=== PATIENT | male | born 1965 | race Two or more races ===

== ENCOUNTER 2017-03-16 08:06 | Emergency (ER) | payer MEDICARE, MEDICAID ==
[~2017-03-16] VITALS: Ht 177.8 cm; Wt 100.2 kg
[~2017-03-16 08:06] MED LIST: ACET160E13 GT; ALBU2.5V13 IH; ALLA266C2 TP; AMLO5TAB4 GT; BLOO-129 IN; CARV25TA2 GT; DILT30TA2 GT; DOCU50LI GT; DOXA4TAB2 GT; FOLI0.8T23 GT; FOLI1TAB16 GT; GABA-532 GT; HYDR-4076 GT; INSU100I19 SQ; INSU100V27 SQ; IPRA0.2S9 IH; LEVE100S GT; MERO1VIA IV; NITR1PAT9 TD; NUT.237L67 GT; OMEP40CA37 GT; PYRI50TA9 GT; TRAM50TA2 PO
--- NOTE | 2017-03-16 08:15 | NUR ---
AT FOR EVAL AND FOR GTUBE REPLACEMENT.
[2017-03-16] MEDS ORDERED: DIATR MEGLU/DIATRIZOATE SODIUM 30 ML BOTTLE (GASTROGRAPHIN) ONE (08:18)
--- NOTE | 2017-03-16 08:20 | NUR ---
PT BIB EMS FOR G-TUBE REPLACEMENT. G-TUBE DISLODGED THIS MORNING. VSS. NAD NOTED. RT AT BS. SAFETY AND COMFORT MEASURES PROVIDED. WILL MONITOR. AWAITING FOR MD CASTELLANO.
--- NOTE | 2017-03-16 08:32 | NUR ---
CALLED [facility] [phone] ETA FOR RT IS 20 MIN
--- NOTE | 2017-03-16 09:41 | NUR ---
Patient discharged back to facility in a stable condition. Written and verbal after care instructions given. rReport given to [facility] ambulance staff.
[2017-03-16 09:43] VITALS: BP 116/65
== END 2017-03-16 09:44 ==
LOC: ER 08:08
DX: K94.23 Gastrostomy malfunction (principal); E11.9 Type 2 diabetes mellitus without complications; I12.0 Hypertensive chronic kidney disease with stage 5 chronic kidney disease or end stage renal disease; N18.6 End stage renal disease; K74.60 Unspecified cirrhosis of liver; Z79.4 Long term (current) use of insulin; Z86.73 Personal history of transient ischemic attack (TIA), and cerebral infarction without residual deficits; Z99.2 Dependence on renal dialysis
CPT/HCPCS: 74000-TC; A4606; Q9963; Z7610

== ENCOUNTER 2017-04-29 12:10 | Inpatient (IN) | payer MEDICARE, MEDICAID ==
[~2017-04-29] VITALS: Ht 172.7 cm; Wt 93.9 kg
--- NOTE | 2017-04-29 12:19 | NUR ---
[facility] FROM CENTER, LEFT ARM DEFORMITY NOTICED UNKNOWN ETIOLOGY. PLACED ON MONITOR. PT ON MECH VENT TRACH . PT HAS GTUBE PATENT. PLACED ON MONITOR. AWAITING MD ORDER
--- NOTE | 2017-04-29 12:23 | NUR ---
DR WELLS AT BEDSIDE FOR EVAL
--- NOTE | 2017-04-29 12:41 | NUR ---
INTERLOCKING MACHINE OPERATOR AT BEDSIDE
--- NOTE | 2017-04-29 13:35 | NUR ---
PAGED DR WERNER MEDICAL DIAGNOSTIC RADIOGRAPHER FOR DR KANG
--- NOTE | 2017-04-29 13:44 | NUR ---
NURSING AIDE AT BEDSIDE
[2017-04-29] MEDS ORDERED: ENOXAPARIN SODIUM 60 MG/0.6 ML DISP.SYRIN SQ ONE (14:00)
--- NOTE | 2017-04-29 14:01 | NUR ---
REPAGED DR. SCHWARTZ
[2017-04-29 14:26] LABS: BASOPHILS % (AUTO) 0.8 % (0.0-2.0); EOSINOPHILS # (AUTO) 0.1 /CMM (0.0-0.7); HEMATOCRIT 37 % (39-51); HEMOGLOBIN 11.2 g/dL (13.5-17.5); LYMPHOCYTES # (AUTO) 0.4 /CMM (0.8-4.8); LYMPHOCYTES % (AUTO) 8.8 % (20.0-44.0); MEAN CORPUSCULAR HEMOGLOBIN 31 PG (26.0-33.0); MEAN CORPUSCULAR HGB CONC 30 g/dl (31.0-36.0); MEAN CORPUSCULAR VOLUME 103 fL (80-96); MONOCYTES # (AUTO) 0.3 /CMM (0.1-1.30); MONOCYTES % (AUTO) 5.7 % (2.0-12.0); NEUTROPHILS # (AUTO) 3.7 /CMM (1.8-8.9); NEUTROPHILS % (AUTO) 81.7 % (43.0-81.0); RDW COEFFICIENT OF VARIATION 18.3 (11.5-15.0); WHITE BLOOD COUNT (AUTO) 4.5 K/uL (4.3-11.0)
[2017-04-29 14:32] LABS: PLATELET COUNT (AUTO) 44 /CMM (150-450)
[2017-04-29 14:34] LABS: CALCIUM, SERUM 9.2 mg/dL (8.5-10.1); CREATININE 3.4 mg/dL (0.6-1.3); POTASSIUM 4.3 mmol/L (3.5-5.1)
--- NOTE | 2017-04-29 14:35 | NUR ---
per dr alma samuel [facility] dialysis pt.
[2017-04-29 14:36] LABS: PROTHROMBIN TIME 10.4 SECS (9.5-12.7)
--- NOTE | 2017-04-29 14:37 | NUR ---
328-[address] EFREN KING RN DVT
[2017-04-29] MEDS ORDERED: DEXT15DR23 EACHEYE (14:42)
[2017-04-29] MEDS ORDERED: SEVE800T8 GT (14:42)
[2017-04-29] MEDS ORDERED: AMIN887L GT (14:42)
--- NOTE | 2017-04-29 14:42 | NUR ---
GAVE REPORT TO CHRISTINE AYALADWARF TREE GROWER
[2017-04-29] MEDS ORDERED: INSU100V26 SQ (14:48)
--- NOTE | 2017-04-29 14:50 | NUR ---
REPAGED DR SCHWARTZ
--- NOTE | 2017-04-29 15:26 | NUR ---
REPAGED DR JENI SCHWARTZ
[2017-04-29 15:58] LABS: BAND % (MANUAL) 8 % (0.0-5.0); EOSINOPHILS % (MANUAL) 2 % (0-4); LYMPHOCYTES % (MANUAL) 10 % (16-48); MONOCYTES % (MANUAL) 4 % (0-11.0); NEUTROPHILS % (MANUAL) 76 (42-76)
[2017-04-29 16:30] VITALS: BP 129/68
--- NOTE | 2017-04-29 16:30 | NUR ---
RN NOTES RECEIVED PATIENT FROM MYAH AYALA IN THE ER. PATIENT WAS BROUGHT WITH BED. NO SOB OR DISTRESS NOTED. PATIENT IN TELE MONITOR, SR HEART RATE OF 91. PATIENT NON VERBAL, PATIENT ON VENTILATOR. IV INTACT AND PATENT. KEPT PATIENT CLEAN AND COMFORTABLE IN BED, CALL LIGHT WITHIN PATIENT REACH, WILL CONTINUE TO MONITOR ACCORDINGLY.
[2017-04-29 17:00] VITALS: BP 129/68
--- NOTE | 2017-04-29 17:30 | NUR ---
RN NOTES PAGED DR. SCHWARTZ.
--- NOTE | 2017-04-29 18:40 | NUR ---
RN NOTES ALL NEEDS PROVIDED, ATTENDED, AND ANTICIPATED. KEPT PATIENT CLEAN AND COMFORTABLE IN BED, CALL LIGHT WITHIN PATIENT REACH, WILL CONTINUE TO MONITOR ACCORDINGLY. ENDORSED TO NEXT SHIFT RN TO CONTINUE CARE.
--- NOTE | 2017-04-29 19:22 | NUR ---
RN NOTES PAGED DR. SCHWARTZ. THEY TOLD ME THAT DR. TREVIÑO IS DRJohana LEARNING MANAGER AND HE WILL GIVE ME A CALL.
[2017-04-29 20:00] VITALS: BP 140/79
[2017-04-29] MEDS ORDERED: ALBUTEROL FS 2.5 MG/0.5 ML VIAL.NEB IH PRN (20:00)
[2017-04-29] MEDS ORDERED: IPRATROPIUM NEB FS 0.5 MG/2.5 ML AMPUL.NEB IH PRN (20:00)
--- NOTE | 2017-04-29 20:00 | NUR ---
TELE SUPERVISOR FABRICATION AND ASSEMBLY INITIAL NOTES RECEIVED REPORT FROM AM NURSE NICKOLAS, CHECKED PT SEEN IN BED ON MECHANICAL VENT SETTING FF. AC16, FIO2 40%, TV 600 , PEEP 5 , TRACH PORTEX #8. HE ALSO WITH G TUBE, CLAMPED AT THIS TIME.NO RESIDUAL NOTED. LEFT ARM SWOLLEN NOTED OFFLOAD ON PILLOWS. SKIN WARM AND DRY TO TOUCH, NOT IN ANY ACUTE DISTRESS NOTED. ABDOMEN SEEMS DISTENDED AND NOTED REDNESS ON G-TUBE SITE. BOWEL SOUNDS PRESENT. TELE SR WITH 1ST DEGREE AV BLOCK , KEPT HIM ON SEMI FOWLERS POSITION WITH SIDE RAILS X3 UP AND BED IN LOW AND LOCK IN POSITION. KEPT HIM WARM AND COMFORTABLE AT ALL TIMES. WILL CONTINUE TO MONITOR.
--- NOTE | 2017-04-29 20:25 | NUR ---
WATER PUMP ASSEMBLER/NOTES PATIENT POSITIVE FOR DVT LEFT BRACHIAL , AWARE .
[2017-04-29] MEDS ORDERED: DEXTROSE 50%-WATER 50 ML DISP.SYRIN IV PRN (20:30)
[2017-04-29] MEDS: TRAMADOL HCL 50 MG TABLET PO SCH (21:00)
[2017-04-29] MEDS: RENAL NOVASOURCE 1,000 ML BOTTLE GT SCH (21:27)
--- NOTE | 2017-04-29 21:30 | NUR ---
GRAPHIC DESIGN TEACHER/NOTES I ASKED THE PATIENT IF HE'S ON PAIN HE RESPONSE BY SHAKING HIS HEAD SIDE TO SIDE MEANS NO. NO SIGNS OF ANY DISCOMFORT NOTED. SEEMS COMFORTABLE AT THIS TIME.
[2017-04-29] MEDS: DOCUSATE SODIUM LIQ 100 MG/10 ML UDC GT SCH (21:31)
[2017-04-29] MEDS: LEVETIRACETAM SOL (5 ML) 100 MG/ML UDC GT SCH (21:31)
[2017-04-29] MEDS: hydrALAZINE HCL 25 MG TABLET GT SCH (21:32)
[2017-04-29] MEDS: PYRIDOXINE HCL 50 MG TABLET GT SCH (21:32)
[2017-04-29] MEDS: GABAPENTIN 100 MG CAPSULE GT SCH (21:32)
[2017-04-29] MEDS: CARVEDILOL 12.5 MG TABLET PO SCH (21:32)
[2017-04-29] MEDS: DOXAZOSIN MESYLATE (4 MG) 4 MG TABLET GT SCH (21:34)
[2017-04-29] MEDS: POLYVINYL ALCOHOL 15 ML BOTTLE EACHEYE SCH (21:44)
[2017-04-29] MEDS: INSULIN DETEMIR 100 UNIT/ML CARTRIDGE SQ SCH (21:47)
[2017-04-29] MEDS ORDERED: INSULIN REGULAR, HUMAN 100 UNIT/ML 3 ML VIAL SQ SCH (22:00)
[2017-04-30] VITALS (7 sets, daily range): BP systolic 94–126; BP diastolic 56–65
[2017-04-30] MEDS ORDERED: BLOOD SUGAR DIAGNOSTIC 1 EACH STRIP IN SCH
[2017-04-30] MEDS ORDERED: ACETAMINOPHEN LIQUID 160 MG/5 ML BOTTLE GT PRN
--- NOTE | 2017-04-30 | NUR ---
MEAT PICKLER/NOTES PT RESTING COMFORTABLY IN BED WITHOUT ANY ACUTE DISTRESS NOTED. BLOOD SUGAR CHECKED DONE 336, 12 UNITS OF INSULIN GIVEN NO SIGNS OF HYPER GLYCEMIA NOTED. WILL CONTINUE TO MONITOR. TELE SR PER MONITOR.
[2017-04-30] MEDS: BLOOD SUGAR DIAGNOSTIC 1 EACH STRIP IN SCH ×4 (00:15→17:05)
[2017-04-30] MEDS: INSULIN REGULAR, HUMAN 100 UNIT/ML 3 ML VIAL SQ PRN ×4 (00:19→17:17)
[2017-04-30] MEDS: ALBUTEROL FS 2.5 MG/0.5 ML VIAL.NEB IH SCH ×4 (03:42→19:11)
[2017-04-30] MEDS: IPRATROPIUM NEB FS 0.5 MG/2.5 ML AMPUL.NEB IH SCH ×4 (03:42→19:11)
[2017-04-30] MEDS: hydrALAZINE HCL 25 MG TABLET GT SCH ×3 (05:00→21:47)
[2017-04-30] MEDS: DILTIAZEM HCL 30 MG TABLET GT SCH ×4 (05:57→17:06)
[2017-04-30] MEDS: Z GUARD REMEDY 2 OZ OINT TP SCH ×2 (06:00→17:07)
--- NOTE | 2017-04-30 06:01 | NUR ---
TELE CASING INSPECTOR NOTS BLOOD SUGAR CHECKED DONE 490 , 15 UNITS OF INSULIN GIVEN TAVO SQ ORDERED AND BLOOD DRAW REQUESTED AND WILL CALL MD LATER AFTER BLOOD RESULT.
[2017-04-30 07:04] LABS: BASOPHILS % (AUTO) 0.5 % (0.0-2.0); EOSINOPHILS # (AUTO) 0.1 /CMM (0.0-0.7); EOSINOPHILS % (AUTO) 2.1 % (0.0-6.0); HEMATOCRIT 34 % (39-51); LYMPHOCYTES # (AUTO) 0.4 /CMM (0.8-4.8); LYMPHOCYTES % (AUTO) 8.7 % (20.0-44.0); MEAN CORPUSCULAR HEMOGLOBIN 34 PG (26.0-33.0); MEAN CORPUSCULAR HGB CONC 33 g/dl (31.0-36.0); MEAN CORPUSCULAR VOLUME 103 fL (80-96); MONOCYTES # (AUTO) 0.3 /CMM (0.1-1.30); MONOCYTES % (AUTO) 6.3 % (2.0-12.0); NEUTROPHILS # (AUTO) 3.4 /CMM (1.8-8.9); NEUTROPHILS % (AUTO) 82.4 % (43.0-81.0); RDW COEFFICIENT OF VARIATION 18.6 (11.5-15.0); RED BLOOD CELL COUNT(AUTO) 3.28 MIL/uL (4.5-6.0); WHITE BLOOD COUNT (AUTO) 4.1 K/uL (4.3-11.0)
[2017-04-30 07:09] LABS: CALCIUM, SERUM 9.1 mg/dL (8.5-10.1); CREATININE 4.7 mg/dL (0.6-1.3); MAGNESIUM 3.1 mg/dL (1.8-2.4); PHOSPHORUS 4.3 mg/dL (2.5-4.9); POTASSIUM 4.8 mmol/L (3.5-5.1)
--- NOTE | 2017-04-30 07:30 | NUR ---
CABLE TOWER OPERATOR/NOTES CALLED EXCHANGED TO LET MD KNOWS THE CRITICAL LAB RESULT. STILL WAITING TO CALL BACK. GAVE REPORT TO AM NURSE WHILE CHECKING PT HE'S RESTING AT THIS TIME WITHOUT ANY ACUTE DISTRESS NOTED. TELE SR WITH 1ST DEGREE AV BLOCK. CHARGED NURSE LEILANI ALSO AWARE OF LAB RESULT. KEPT HIM WARM AND COMFORTABLE AT ALL TIMES. ENDORSE.
[2017-04-30 07:35] LABS: PLATELET COUNT (AUTO) 49 /CMM (150-450)
[2017-04-30 07:51] LABS: BAND % (MANUAL) 3 % (0.0-5.0); EOSINOPHILS % (MANUAL) 3 % (0-4); LYMPHOCYTES % (MANUAL) 6 % (16-48); MONOCYTES % (MANUAL) 6 % (0-11.0); NEUTROPHILS % (MANUAL) 82 (42-76)
--- NOTE | 2017-04-30 07:54 | NUR ---
FINISH MOLDER NOTES RECEIVED PATIENT IN BED, IN NO APPARENT DISTRESS, NO FACIAL GRIMACING NOTED. PATIENT IS NON VERBAL, ABLE TO OPEN EYES. PM NURSE ENDORSED CRITICAL GLUCOSE LEVEL OF 495. DR WERNER TIMBER GRADER PAGED AWAITING CALL BACK. VENT SETTINGS OS ORDERED, ON TELE MONITORING SR 84. G TUBE FEEDING OFF, TO BE RESUMED AT 1200. IV LINE ON RIGHT HAND PATENT. ALL NEEDS MET, KEPT CLEAN AND DRY.
--- NOTE | 2017-04-30 08:07 | NUR ---
RT PT RECEIVED TRACHED ON THE VENT WITH NOTED SETTINGS. PT IS AWAKE AND RESPONDS TO STIMULI WHEN SX. VENT ALARMS ARE SET AND AUDIBLE WITH BVM BY BEDSIDE. SLIP COVER CUTTER CUFF PRESSURE NOTED. VENT IS PLUGGED INTO RED OUTLET. NO RESPIRATORY DISTRESS NOTED AT THIS TIME, WILL CONTINUE TO MONITOR. Addendum: 04/30/17 at 0923 by BIJU PAPPAS RT Amended: Links added.
--- NOTE | 2017-04-30 08:21 | NUR ---
RECEIVED CALL FROM DR WERNER, INFORMED HIM OF CRITICAL GLUCOSE LEVEL OF 495,PER MD CONTINUE TO MONITOR. INFORMED MD OR PTL COUNT PER MD PATIENT HAS CHRONICALLY LOW COUNT.
[2017-04-30] MEDS: CARVEDILOL 12.5 MG TABLET PO SCH ×2 (09:00→21:48)
[2017-04-30] MEDS: AMLODIPINE BESYLATE 5 MG TABLET GT SCH (09:00)
[2017-04-30] MEDS: DOXAZOSIN MESYLATE (4 MG) 4 MG TABLET GT SCH ×2 (09:00→21:47)
[2017-04-30] MEDS: NITROGLYCERIN 0.4 MG/HR PATCH.TD24 TD SCH (09:00)
[2017-04-30] MEDS: INSULIN DETEMIR 100 UNIT/ML CARTRIDGE SQ SCH ×2 (09:43→21:54)
[2017-04-30] MEDS: POLYVINYL ALCOHOL 15 ML BOTTLE EACHEYE SCH ×2 (09:50→20:36)
[2017-04-30] MEDS: SEVELAMER CARBONATE 800 MG TABLET PO SCH ×3 (09:50→17:05)
[2017-04-30] MEDS: DOCUSATE SODIUM LIQ 100 MG/10 ML UDC GT SCH ×2 (09:51→21:46)
[2017-04-30] MEDS: TRAMADOL HCL 50 MG TABLET PO SCH ×2 (09:51→21:46)
[2017-04-30] MEDS: VIT B CMPLX 3/FA/VIT C/BIOTIN 1 TAB TABLET PO SCH (09:51)
[2017-04-30] MEDS: LEVETIRACETAM SOL (5 ML) 100 MG/ML UDC GT SCH ×2 (09:51→21:46)
[2017-04-30] MEDS: FOLIC ACID 1 MG TABLET GT SCH (09:52)
[2017-04-30] MEDS: GABAPENTIN 100 MG CAPSULE GT SCH ×2 (09:52→21:46)
[2017-04-30] MEDS: PROSOURCE / PROSTAT (PYXIS) 30 ML UDC GT SCH (09:52)
[2017-04-30] MEDS ORDERED: ONDANSETRON HCL/PF 4 MG/2 ML VIAL IV PRN (14:00)
[2017-04-30] MEDS ORDERED: PANTOPRAZOLE 40 MG TABLET.DR PO SCH (16:00)
--- NOTE | 2017-04-30 19:10 | NUR ---
MELTER SUPERVISOR CLOSING NOTES. PATIENT IN BED, NON VERBAL, ABLE TO NOD YES OR NO. VENT SETTINGS ORDERED, G TUBE PATENT INFUSING NOVASOURCE AT 7OML/HR.IV LINE ON RIGHT HAND PATENT NO S/S OF INFILTRATION. ALL DUE MEDS GIVEN, ALL NEEDS MET, KEPT CLEAN AND DRY. WILL ENDORSE CARE TO PM SHIFT.
--- NOTE | 2017-04-30 19:30 | NUR ---
RN NOTES RECEIVED PATIENT IN BED WITH EYES CLOSED, AROUSABLE. PATIENT ABLE TO BLINK EYES AND NOD HEAD TO ANSWER QUESTIONS. NO ACUTE DISTRESS NOTED. NO SIGNS OF PAIN NOTED. TELE READING SINUS RHYTHM HR 78. IV SITE PATENT, INTACT; FLUSHED. TRACH INTACT, IN PLACE; VENT SETTING ORDERED. GT PATENT, INTACT; IN PLACE VIA AUSCULTATION. GTF ONGOING ORDERED. PATIENT TOLERATING GTF WELL. HOB RAISED. NO SYMPTOMS OF HYPER/HYPOGLYCEMIA. ON LOW BED WITH BILATERAL UPPER SIDE RAILS UP. WILL CONTINUE TO MONITOR.
[2017-04-30] MEDS: PYRIDOXINE HCL 50 MG TABLET GT SCH (21:46)
[2017-05-01] VITALS: BP 92/52
[2017-05-01] MEDS: INSULIN REGULAR, HUMAN 100 UNIT/ML 3 ML VIAL SQ PRN ×5 (00:42→23:15)
[2017-05-01] MEDS: BLOOD SUGAR DIAGNOSTIC 1 EACH STRIP IN SCH ×5 (00:47→23:10)
[2017-05-01] MEDS: RENAL NOVASOURCE 1,000 ML BOTTLE GT SCH ×2 (00:53→20:58)
[2017-05-01] MEDS: ALBUTEROL FS 2.5 MG/0.5 ML VIAL.NEB IH SCH ×4 (01:10→19:14)
[2017-05-01] MEDS: IPRATROPIUM NEB FS 0.5 MG/2.5 ML AMPUL.NEB IH SCH ×4 (01:10→19:14)
[2017-05-01 04:00] VITALS: BP_SYST 92; BP_DIAS 46; BP_DIAS 92
[2017-05-01] MEDS: hydrALAZINE HCL 25 MG TABLET GT SCH ×3 (05:00→21:02)
[2017-05-01] MEDS: DILTIAZEM HCL 30 MG TABLET GT SCH ×5 (06:00→23:11)
--- NOTE | 2017-05-01 06:06 | NUR ---
RN NOTES PATIENT IN BED WITH EYES CLOSED, EASILY AROUSABLE. RESPIRATIONS EVEN. NO SIGNS OF PAIN NOTED. DUE MEDS GIVEN WITH NO ASE NOTED. REPOSITIONED Q 2 HOURS. SAFETY PRECAUTIONS AND COMFORT MEASURES IN PLACE. WILL GIVE REPORT TO DAY SHIFT FOR CONTINUITY OF CARE.
[2017-05-01 06:41] VITALS: BP 104/61
--- NOTE | 2017-05-01 06:45 | NUR ---
RN NOTES DR. CALABRESE (CONSULTING HR PROFESSIONAL FOR DR. SCHWARTZ) WAS PAGED TO RELAY BLOOD SUGAR RESULTS. WAITING FOR CALL BACK.
--- NOTE | 2017-05-01 07:29 | NUR ---
RESORT HOUSEKEEPER NOTES RECEIVED PATIENT, NON VERBAL, IN NO APPARENT DISTRESS, NO FACIAL GRIMACING NOTED. VENT SETTINGS ORDERED, ON TELE MONITORING SR 80. G TUBE PATENT, FEEDING OFF. RIGHT HAND IV PATENT. PM SHIFT REPORTED BS OF 452 OVERNIGHT, AWAITING CALL BACK FROM MD. ALL NEEDS MET, KEPT CLEAN AND DRY.
[2017-05-01 07:55] LABS: BASOPHILS % (AUTO) 0.2 % (0.0-2.0); EOSINOPHILS # (AUTO) 0.2 /CMM (0.0-0.7); HEMATOCRIT 30 % (39-51); LYMPHOCYTES # (AUTO) 0.6 /CMM (0.8-4.8); LYMPHOCYTES % (AUTO) 10.4 % (20.0-44.0); MEAN CORPUSCULAR HEMOGLOBIN 34 PG (26.0-33.0); MEAN CORPUSCULAR HGB CONC 33 g/dl (31.0-36.0); MEAN CORPUSCULAR VOLUME 102 fL (80-96); MONOCYTES # (AUTO) 0.3 /CMM (0.1-1.30); MONOCYTES % (AUTO) 5.1 % (2.0-12.0); NEUTROPHILS # (AUTO) 4.6 /CMM (1.8-8.9); NEUTROPHILS % (AUTO) 81.3 % (43.0-81.0); RDW COEFFICIENT OF VARIATION 18.8 (11.5-15.0); RED BLOOD CELL COUNT(AUTO) 2.94 MIL/uL (4.5-6.0); WHITE BLOOD COUNT (AUTO) 5.6 K/uL (4.3-11.0)
[2017-05-01 08:02] LABS: PLATELET COUNT (AUTO) 44 /CMM (150-450)
[2017-05-01 08:20] LABS: CALCIUM, SERUM 9.1 mg/dL (8.5-10.1); MAGNESIUM 3.3 mg/dL (1.8-2.4); PHOSPHORUS 4.7 mg/dL (2.5-4.9); POTASSIUM 4.3 mmol/L (3.5-5.1)
[2017-05-01] MEDS: POLYVINYL ALCOHOL 15 ML BOTTLE EACHEYE SCH ×2 (08:38→21:05)
[2017-05-01] MEDS: LEVETIRACETAM SOL (5 ML) 100 MG/ML UDC GT SCH ×2 (08:39→21:00)
[2017-05-01] MEDS: SEVELAMER CARBONATE 800 MG TABLET PO SCH ×2 (08:39→13:33)
[2017-05-01] MEDS: GABAPENTIN 100 MG CAPSULE GT SCH ×2 (08:39→21:00)
[2017-05-01] MEDS: TRAMADOL HCL 50 MG TABLET PO SCH ×2 (08:39→21:01)
[2017-05-01] MEDS: VIT B CMPLX 3/FA/VIT C/BIOTIN 1 TAB TABLET PO SCH (08:39)
[2017-05-01] MEDS: DOCUSATE SODIUM LIQ 100 MG/10 ML UDC GT SCH ×2 (08:39→21:00)
[2017-05-01] MEDS: PROSOURCE / PROSTAT (PYXIS) 30 ML UDC GT SCH (08:40)
[2017-05-01] MEDS: Z GUARD REMEDY 2 OZ OINT TP SCH ×2 (08:40→16:48)
[2017-05-01] MEDS: FOLIC ACID 1 MG TABLET GT SCH (08:40)
[2017-05-01] MEDS: NITROGLYCERIN 0.4 MG/HR PATCH.TD24 TD SCH (08:41)
[2017-05-01] MEDS: CARVEDILOL 12.5 MG TABLET PO SCH ×2 (08:41→21:01)
[2017-05-01] MEDS: AMLODIPINE BESYLATE 5 MG TABLET GT SCH (08:41)
[2017-05-01] MEDS: DOXAZOSIN MESYLATE (4 MG) 4 MG TABLET GT SCH ×2 (08:42→21:01)
[2017-05-01] MEDS: INSULIN DETEMIR 100 UNIT/ML CARTRIDGE SQ SCH ×3 (08:44→21:19)
[2017-05-01 08:53] LABS: BAND % (MANUAL) 1 % (0.0-5.0); EOSINOPHILS % (MANUAL) 2 % (0-4); LYMPHOCYTES % (MANUAL) 11 % (16-48); MONOCYTES % (MANUAL) 2 % (0-11.0); NEUTROPHILS % (MANUAL) 84 (42-76)
--- NOTE | 2017-05-01 10:35 | NUR ---
WOUND CARE CONSULT: PT PRESENTS WITH STAGE 2 ULCER TO SACRAL AREA, PRESENT ON ADMISSION. PT BEING PLACED ON ALEJANDRO ISOFLEX LOW AIRLOSS BED. ALL SKIN PROTECTION AND WOUND RECOMMENDATIONS DISCUSSED WITH NURSING STAFF. WILL SEE PRN. BARKER IN AGREEMENT WITH PLAN OF CARE. Addendum: 05/01/17 at 1036 by CHANDU GONCALVES WNDNU Amended: Links added.
[2017-05-01 12:00] VITALS: BP 87/57
[2017-05-01] MEDS: HYDROGEL DRESSING 90 GM TUBE TP SCH (12:06)
--- NOTE | 2017-05-01 12:45 | NUR ---
HAND OUTSIDE CUTTER NOTES DIALYSIS DONE, 80ML OUT. VS 91/53 HR 73.
--- NOTE | 2017-05-01 13:04 | NUR ---
RT RECEIVED PATIENT TRACH'D WITH PORTEX #8 CUFFED ON [facility] VENT WITH SETTINGS PER MD ORDER. DECONTAMINATOR DONE. BILAT BREATH SOUNDS ON AUSCULTATION. SUCTIONED SMALL AMOUNTS OF THICK, WHITE/YELLOW SECRETIONS. ALARMS SET AND WORKING PROPERLY. TRACH SECURED AND AIRWAY PATENT. VENT PLUGGED INTO RED OUTLET. AMBU BAG AT BEDSIDE. TX GIVEN ORDERED. NO ADVERSE REACTIONS OBSERVED. NO SOB NOTED AT THIS TIME. WILL CONTINUE TO MONITOR THE PATIENT FOR ANY CHANGE OF CONDITION. Addendum: 05/01/17 at 1514 by ROXANA MOSLEY RT Amended: Links added.
--- NOTE | 2017-05-01 15:25 | NUR ---
CANDY CUTTER HAND NOTES REPORTED BS> 400 OVER NIGHT WITH NEW TELEPHONE ORDERS. ALL ORDERS NOTED AND CARRIED OUT.
[2017-05-01] MEDS ORDERED: RENAL NOVASOURCE 1,000 ML BOTTLE GT SCH (15:30)
[2017-05-01 16:00] VITALS: BP 112/63
[2017-05-01] MEDS: PANTOPRAZOLE 40 MG/PACK PACK NG SCH (16:47)
[2017-05-01] MEDS: SEVELAMER CARBONATE 0.8 GM POWD.PACK GT SCH (17:51)
--- NOTE | 2017-05-01 18:52 | NUR ---
FILM MOUNTER CLOSING NOTES PATIENT IN BED, NON VERBAL, IN NO APPARENT DISTRESS. VENT SETTINGS ORDERED, ON TELE MONITORING SR 80. ALL DUE MEDS GIVEN, ALL NEEDS MET, KEPT CLEAN AND DRY. WOUND TX DONE ORDERED. IV LINE ON RIGHT HAND PATENT. G TUBE PATENT INFUSING NOVASOURCE AT 35ML/HR. WILL ENDORSE CARE TO PM SHIFT.
--- NOTE | 2017-05-01 19:00 | NUR ---
SOLE ROUGHER INITIAL NOTE PT RECEIVED IN BED, OPEN EYES, NODS HEADS, BLINKS EYES, ON VENT. SR 80'S NO S/S OF RESPIRATORY DISTRESS OR SOB. IV SITE INTACT WITH NO S/S OF INFILTRATION NOTED. SAFE ENVIRONMENT PROVIDED FREE OF CLUTTERS .BED IN LOCKED, LOW POSITION. CALL LIGHT WITHIN EASY REACH. WILL CONTINUE TO MONITOR
[2017-05-01 20:00] VITALS: BP 142/76
[2017-05-01] MEDS: PYRIDOXINE HCL 50 MG TABLET GT SCH (21:00)
--- NOTE | 2017-05-01 21:20 | NUR ---
Initial Blood sugar was taken 334 mg/dl prior levemir insulin administration of 70 units witnessed by 1 RN
[2017-05-02] VITALS: BP 100/53
[2017-05-02] MEDS: ALBUTEROL FS 2.5 MG/0.5 ML VIAL.NEB IH SCH ×4 (00:57→20:07)
[2017-05-02] MEDS: IPRATROPIUM NEB FS 0.5 MG/2.5 ML AMPUL.NEB IH SCH ×4 (00:58→20:07)
[2017-05-02 04:00] VITALS: BP 125/66
[2017-05-02] MEDS: hydrALAZINE HCL 25 MG TABLET GT SCH ×3 (05:00→21:00)
[2017-05-02] MEDS: DILTIAZEM HCL 30 MG TABLET GT SCH ×3 (05:07→17:54)
[2017-05-02] MEDS: BLOOD SUGAR DIAGNOSTIC 1 EACH STRIP IN SCH ×3 (05:08→17:41)
[2017-05-02] MEDS: INSULIN REGULAR, HUMAN 100 UNIT/ML 3 ML VIAL SQ PRN ×3 (05:19→18:33)
--- NOTE | 2017-05-02 06:33 | NUR ---
BUSINESS ANALYST [employer] CLOSING NOTES PATIENT COMFORTABLY IN BED ASLEEP AND EASILY AWAKEN, NON VERBAL OPEN EYES AND NODS HEAD. RESPIRATIONS EVEN UNLABORED BREATH SOUNDS. CONTINUE VENT SETTING ORDERED ALARMS SET AND WORKING PROPERLY. TRACH SECURED AND AIRWAY PATENT. GT FEEDING INFUSING NOVASOURCE 35 CC/HR WITH NO COMPLICATIONS TOLERATED WELL. NO S/S OF HYPO/HYPERGLYCEMIA. APICAL PULSE REGULAR; GOOD SKIN CARE PROVIDED. PATIENT IN STABLE CONDITION WITH NO SOB NO S/S OF DISTRESS. SAFETY ENVIRONMENT PROVIDED. FREE OF CLUTTERS, NEEDS ATTENDED AND ANTICIPATED, NURSING CARE RENDERED, KEPT CLEAN AND DRY AND COMFORTABLE. ALL DUE MEDS WAS GIVEN. STRICTLY REPOSITIONED Q2H FOR COMFORT AND SKIN MGT. CALL LIGHT IN REACH, BED LOWERED AND LOCKED, SR X2 FOR SAFETY AND WILL ENDORSE CONTINUE PLAN OF CARE. Addendum: 05/02/17 at 0635 by LI SHARP RN ADDENDUM: PATIENT ON TELE MONITOR SR 81'S
--- NOTE | 2017-05-02 07:30 | NUR ---
RECEIVED PT. AWAKE,EYES OPEN,OCCASIONALLY NODS HEAD,NON-VERBAL.TRACH IN PLACE.ON VENT-SETTINGS UNCHANGED.
[2017-05-02 08:00] VITALS: BP 128/70
[2017-05-02] MEDS: NITROGLYCERIN 0.4 MG/HR PATCH.TD24 TD SCH (09:00)
--- NOTE | 2017-05-02 09:48 | NUR ---
Patient received trached on mechanical vent. Breath sounds equal bilateral. Breathing tretment given as ordered and tolerated well. No adverse reactions noted. Vent plugged into red outlet and alarms set and functioning. Ambu bag at the bed side.
[2017-05-02] MEDS: INSULIN DETEMIR 100 UNIT/ML CARTRIDGE SQ SCH ×2 (09:51→21:37)
[2017-05-02] MEDS: POLYVINYL ALCOHOL 15 ML BOTTLE EACHEYE SCH ×2 (10:02→21:36)
[2017-05-02] MEDS: HYDROGEL DRESSING 90 GM TUBE TP PRN (10:03)
[2017-05-02] MEDS: Z GUARD REMEDY 2 OZ OINT TP SCH ×2 (10:03→18:25)
[2017-05-02] MEDS: DOXAZOSIN MESYLATE (4 MG) 4 MG TABLET GT SCH ×2 (10:04→21:35)
[2017-05-02] MEDS: AMLODIPINE BESYLATE 5 MG TABLET GT SCH ×2 (10:05→13:13)
[2017-05-02] MEDS: CARVEDILOL 12.5 MG TABLET PO SCH ×2 (10:05→21:34)
[2017-05-02] MEDS: SEVELAMER CARBONATE 0.8 GM POWD.PACK GT SCH ×3 (10:06→18:24)
[2017-05-02] MEDS: DOCUSATE SODIUM LIQ 100 MG/10 ML UDC GT SCH ×2 (10:06→21:33)
[2017-05-02] MEDS: LEVETIRACETAM SOL (5 ML) 100 MG/ML UDC GT SCH ×2 (10:06→21:33)
[2017-05-02] MEDS: GABAPENTIN 100 MG CAPSULE GT SCH ×2 (10:06→21:35)
[2017-05-02] MEDS: FOLIC ACID 1 MG TABLET GT SCH (10:06)
[2017-05-02] MEDS: VIT B CMPLX 3/FA/VIT C/BIOTIN 1 TAB TABLET PO SCH (10:06)
[2017-05-02] MEDS: TRAMADOL HCL 50 MG TABLET PO SCH ×2 (10:07→21:34)
[2017-05-02] MEDS: HYDROGEL DRESSING 90 GM TUBE TP SCH (10:08)
[2017-05-02] MEDS: PROSOURCE / PROSTAT (PYXIS) 30 ML UDC GT SCH ×3 (10:18→18:24)
--- NOTE | 2017-05-02 11:30 | NUR ---
FAMILY IN TO VISIT.DR. KANG QUESTIONED REGARDING CHANGE OF [facility] CATH LOCATION DUE TO DVT.STATES HE WILL FOLLOW UP.
[2017-05-02 12:00] VITALS: BP 142/81
--- NOTE | 2017-05-02 15:30 | NUR ---
ON ROUTINE ULTRAM BUT ADDITIONALLY GIVEN TYLENOL LIQ. LOOKS UNCOMFORTABLE.
[2017-05-02 16:00] VITALS: BP 107/62
--- NOTE | 2017-05-02 18:00 | NUR ---
NO CHANGE IN STATUS.
[2017-05-02] MEDS: PANTOPRAZOLE 40 MG/PACK PACK NG SCH (18:24)
--- NOTE | 2017-05-02 19:15 | NUR ---
RN INITIAL NOTES RECEIVED PATIENT IN BED, SLEEPING COMFORTABLY, OPENS EYES TO STIMULI, NO ACUTE DISTRESS NOTED. SR ON TELE WITH HR OF 73. WITH TRACH, C/D/I, MIDLINE, TOLERATING CURRENT MECH VENT WELL, NO DISTRESS. AIRWAY SUCTIONED NEEDED WITH THICK, WHITE SECRETION NOTED, SATURATION AT 100%. LUE SWELLING NOTED, ELEVATED WITH PILLOW TOLERATED. L CHESTWALL HD CATH WITH DRESSING INTACT. R HAND G20, FLUSHED AND PATENT, NO SIGNS OF INFILTRATION. GT FLUSHED, PLACEMENT VERIFIED, GTF INFUSING WELL, NO GASTRIC RESIDUAL NOTED. PATIENT'S NEEDS ANTICIPATED AND MET. SAFETY AND COMFORT ENSURED. BED IN LOW AND LOCKED POSITION. REPOSITIONED FOR COMFORT. HOB ELEVATED. WILL MONITOR.
[2017-05-02 20:00] VITALS: BP 111/67
[2017-05-02] MEDS: RENAL NOVASOURCE 1,000 ML BOTTLE GT SCH (21:32)
[2017-05-02] MEDS: PYRIDOXINE HCL 50 MG TABLET GT SCH (21:35)
--- NOTE | 2017-05-02 22:00 | NUR ---
RN NOTES HS MEDS GIVEN ORDERED. QZ=306, DETEMIR 70u GIVEN ORDERED. APRESOLINE NON-ADMIN PER PARAMETER, BP=97/60, HR=69, SR.
[2017-05-03] VITALS (7 sets, daily range): BP systolic 97–138; BP diastolic 52–76
[2017-05-03] MEDS: BLOOD SUGAR DIAGNOSTIC 1 EACH STRIP IN SCH ×4 (00:27→17:24)
[2017-05-03] MEDS: INSULIN REGULAR, HUMAN 100 UNIT/ML 3 ML VIAL SQ PRN ×4 (00:28→18:22)
--- NOTE | 2017-05-03 00:40 | NUR ---
RN NOTES BS = 296, 9 UNITS OF REGULAR INSULIN GIVEN ORDERED; ON GTF ORDERED. PATIENT'S DILTIAZEM HELD PER PARAMETER, PATIENT'S BP = 105/54, HR = 68, SR.
[2017-05-03] MEDS: ALBUTEROL FS 2.5 MG/0.5 ML VIAL.NEB IH SCH ×4 (02:27→19:23)
[2017-05-03] MEDS: IPRATROPIUM NEB FS 0.5 MG/2.5 ML AMPUL.NEB IH SCH ×4 (02:27→19:23)
[2017-05-03] MEDS: hydrALAZINE HCL 25 MG TABLET GT SCH ×3 (05:00→21:23)
[2017-05-03] MEDS: DILTIAZEM HCL 30 MG TABLET GT SCH ×4 (05:09→17:01)
--- NOTE | 2017-05-03 05:30 | NUR ---
RN NOTES AW=950, 9u OF INSULIN GIVEN PER SLIDING SCALE. HYDRALAZINE AND DILTIAZEM HELD, PATIENT'S BP= 96/52 AND HR OF 63, SR. AM CARE RENDERED. WOUND TREATMENT RENDERED ORDERED. TRACH CARE DONE. PATIENT KEPT CLEAN AND DRY. SAFETY AND COMFORT ENSURED.
--- NOTE | 2017-05-03 06:58 | NUR ---
RN CLOSING NOTES PATIENT WITH NO ACUTE DISTRESS OBSERVED OVERNIGHT. AIRWAY SUCTIONED NEEDED. GTF INFUSING WELL, FLUSHED AND KEPT PATENT, NO GASTRIC RESIDUAL. REMAINS SR ON TELE WITH HR OF 64. NEEDS ANTICIPATED AND MET. SAFETY AND COMFORT ENSURED. BED IN LOW AND LOCKED POSITION. WILL ENDORSE ACCORDINGLY FOR CONTINUITY OF CARE.
--- NOTE | 2017-05-03 08:00 | NUR ---
RN OPENING NOTES RECEIVED PATIENT IN BED RESTING. PATIENT NON VERBAL, ON MECHANICAL VENTILATOR. NO ACUTE DISTRESS NOTED. IV SITE INTACT AND PATENT. GTUBE IN PLACE. KEPT PATIENT SAFE AND COMFORTABLE. BED IN LOW POSITION, HOB ELEVATED. WILL CONTINUE TO MONITOR
[2017-05-03] MEDS: NITROGLYCERIN 0.4 MG/HR PATCH.TD24 TD SCH (09:00)
[2017-05-03] MEDS: CARVEDILOL 12.5 MG TABLET PO SCH ×2 (09:00→21:13)
[2017-05-03] MEDS: DOXAZOSIN MESYLATE (4 MG) 4 MG TABLET GT SCH ×2 (09:00→21:12)
[2017-05-03] MEDS: AMLODIPINE BESYLATE 5 MG TABLET GT SCH (09:00)
[2017-05-03] MEDS: SEVELAMER CARBONATE 0.8 GM POWD.PACK GT SCH ×3 (09:06→17:01)
[2017-05-03] MEDS: LEVETIRACETAM SOL (5 ML) 100 MG/ML UDC GT SCH ×2 (09:06→21:12)
[2017-05-03] MEDS: DOCUSATE SODIUM LIQ 100 MG/10 ML UDC GT SCH ×2 (09:06→21:12)
[2017-05-03] MEDS: VIT B CMPLX 3/FA/VIT C/BIOTIN 1 TAB TABLET PO SCH (09:06)
[2017-05-03] MEDS: GABAPENTIN 100 MG CAPSULE GT SCH ×2 (09:08→21:12)
[2017-05-03] MEDS: FOLIC ACID 1 MG TABLET GT SCH (09:08)
[2017-05-03] MEDS: TRAMADOL HCL 50 MG TABLET PO SCH ×2 (09:10→21:14)
[2017-05-03] MEDS: PROSOURCE / PROSTAT (PYXIS) 30 ML UDC GT SCH ×3 (09:21→17:00)
[2017-05-03] MEDS: POLYVINYL ALCOHOL 15 ML BOTTLE EACHEYE SCH ×2 (09:24→19:55)
[2017-05-03] MEDS: INSULIN DETEMIR 100 UNIT/ML CARTRIDGE SQ SCH ×2 (09:33→21:38)
[2017-05-03] MEDS: Z GUARD REMEDY 2 OZ OINT TP SCH ×2 (09:47→17:02)
[2017-05-03] MEDS: HYDROGEL DRESSING 90 GM TUBE TP PRN (09:47)
[2017-05-03] MEDS: HYDROGEL DRESSING 90 GM TUBE TP SCH (09:50)
[2017-05-03] MEDS: PANTOPRAZOLE 40 MG/PACK PACK NG SCH (17:00)
--- NOTE | 2017-05-03 19:00 | NUR ---
RN CLOSING NOTES PATIENT IN BED SLEEPING. OPEN EYES TO STIMULI. NO ACUTE DISTRESS NOTED. NO SOB. PATIENT HAD HEMODIALYSIS TODAY WITH 1200 CC OUTPUT, PATIENT TOLERATED WELL. ALL NEEDS ATTENDED AND PROVIDED. BED IN LOW POSITION, HEAD OF BED ELEVATED. CALL LIGHT WITHIN REACH. ENDORSED TO AFTERNOON BABYSITTER RN FOR CONTINUITY OF CARE.
--- NOTE | 2017-05-03 19:40 | NUR ---
MACHINE ASSEMBLER FOR PULLER OVER NOTE RECEIVED PATIENT FROM DAY SHIFT, PATIENT IS OBTUNDED, NON-VERBAL, ON VENT-DEPENDENT PATIENT, NO S/S OF RESPIRATORY DISTRESS. TELE MONITOR SR 82. HAS HL ON RIGHT HAND AND LEFT CHEST WALL HD CATH. G TUBE FEEDING 35ML/HR TOLERATING WELL, 5ML OF RESIDUAL PRESENT. SRX2, BED IN LOW POSITION, CALL LIGHT WITHIN REACH, WILL CONTINUE TO MONITOR PATIENT.
[2017-05-03] MEDS: PYRIDOXINE HCL 50 MG TABLET GT SCH (21:12)
[2017-05-04] VITALS (8 sets, daily range): BP systolic 96–131; BP diastolic 54–69
[2017-05-04] MEDS: INSULIN REGULAR, HUMAN 100 UNIT/ML 3 ML VIAL SQ PRN ×5 (00:09→23:41)
[2017-05-04] MEDS: BLOOD SUGAR DIAGNOSTIC 1 EACH STRIP IN SCH ×5 (00:11→23:40)
[2017-05-04] MEDS: IPRATROPIUM NEB FS 0.5 MG/2.5 ML AMPUL.NEB IH SCH ×4 (01:22→19:34)
[2017-05-04] MEDS: ALBUTEROL FS 2.5 MG/0.5 ML VIAL.NEB IH SCH ×4 (01:23→19:34)
[2017-05-04] MEDS: hydrALAZINE HCL 25 MG TABLET GT SCH ×3 (04:59→21:05)
[2017-05-04] MEDS: DILTIAZEM HCL 30 MG TABLET GT SCH ×5 (05:31→23:42)
[2017-05-04] MEDS: RENAL NOVASOURCE 1,000 ML BOTTLE GT SCH (05:38)
--- NOTE | 2017-05-04 06:54 | NUR ---
MEDICAL PATHOLOGY TEACHER NOTE NO ACUTE EVENT NOTED DURING THE SKI PATROL DIRECTOR, MORNING CARE RENDERED. G TUBE TOLERATING WELL, NO S/S OF RESPIRATORY DISTRESS. TELE MONITOR SR 82. WILL ENDORSE TO DAY SHIFT NURSE FOR KRYS.
--- NOTE | 2017-05-04 07:15 | NUR ---
CREATIVE TECHNOLOGIST NOTES RECEIVED PATIENT IN BED, EYES OPEN,NON VERBAL, OBTUNDED. TRACH INTACT, ON VENT. SINUS RHYTHM ON TELE MONITOR, NO SOB. GTUBE FEEDING NOVASOURCE AT 35ML/HR, MAINTAIN HOB ELEVATED. LEFT CHEST WALL HD CATH INTACT, DRESSING IN PLACE. NO BLEEDING NOTED. CALL LIGHT WITHIN REACH. WILL CONT TO MONITOR.
--- NOTE | 2017-05-04 07:59 | NUR ---
Patient received trached on mechanical vent. Breathing treatmnet given as ordered. No adverse reactions noted. Breath sounds equal bilateral. Vent plugged into red outlet and alarms set and functioning. Ambu bag at the bed side
[2017-05-04] MEDS: DOCUSATE SODIUM LIQ 100 MG/10 ML UDC GT SCH ×2 (08:29→21:04)
[2017-05-04] MEDS: LEVETIRACETAM SOL (5 ML) 100 MG/ML UDC GT SCH ×2 (08:29→21:04)
[2017-05-04] MEDS: GABAPENTIN 100 MG CAPSULE GT SCH ×2 (08:29→21:04)
[2017-05-04] MEDS: FOLIC ACID 1 MG TABLET GT SCH (08:29)
[2017-05-04] MEDS: DOXAZOSIN MESYLATE (4 MG) 4 MG TABLET GT SCH ×2 (08:30→21:05)
[2017-05-04] MEDS: SEVELAMER CARBONATE 0.8 GM POWD.PACK GT SCH ×3 (08:36→17:18)
[2017-05-04] MEDS: VIT B CMPLX 3/FA/VIT C/BIOTIN 1 TAB TABLET PO SCH (08:37)
[2017-05-04] MEDS: AMLODIPINE BESYLATE 5 MG TABLET GT SCH (08:38)
[2017-05-04] MEDS: TRAMADOL HCL 50 MG TABLET PO SCH ×2 (08:38→21:04)
[2017-05-04] MEDS: PROSOURCE / PROSTAT (PYXIS) 30 ML UDC GT SCH ×3 (08:44→17:18)
[2017-05-04] MEDS: INSULIN DETEMIR 100 UNIT/ML CARTRIDGE SQ SCH ×2 (08:51→21:14)
[2017-05-04] MEDS: POLYVINYL ALCOHOL 15 ML BOTTLE EACHEYE SCH ×2 (09:14→20:12)
[2017-05-04] MEDS: Z GUARD REMEDY 2 OZ OINT TP SCH ×2 (09:15→16:38)
[2017-05-04] MEDS: HYDROGEL DRESSING 90 GM TUBE TP SCH (09:15)
--- NOTE | 2017-05-04 09:58 | NUR ---
DIALYSIS TREATMENT STARTED, DIALYSIS NURSE AT THE BEDSIDE.
[2017-05-04] MEDS: NITROGLYCERIN 0.4 MG/HR PATCH.TD24 TD SCH (10:10)
[2017-05-04] MEDS: CARVEDILOL 12.5 MG TABLET PO SCH ×2 (10:10→21:05)
--- NOTE | 2017-05-04 11:52 | NUR ---
DIALYSIS TREATMENT DONE, ZERO FLUID OUTPUT PER AMET-DIALYSIS NURSE.
--- NOTE | 2017-05-04 13:55 | NUR ---
PATIENT IS SEEN BY JENNIFER TODAY, TUBE FEEDING ORDERS UPDATED TO CURRENT, NOVASOURCE 35ML/HR AND CONTINUOUS FEEDING.
[2017-05-04] MEDS: PANTOPRAZOLE 40 MG/PACK PACK NG SCH (17:18)
--- NOTE | 2017-05-04 18:25 | NUR ---
FARM SPECIALIST CLOSING NOTES PATIENT IN BED, ON VENT WITH THE SAME SETTINGS. SUCTION PRN, BREATHING TREATMENT GIVEN BY RT. BLOOD SUGAR MONITORED. MAINTAIN HOB ELEVATED, GTUBE FEEDING INFUSING WELL. TURN AND REPOSITION. SCD IN PLACE, BED LOW AND LOCKED. POSSIBLE DC IN AM PER DR. SCHWARTZ. WILL ENDORSE TO SPORTS RECRUITER RN FOR CONTINUITY OF CARE.
--- NOTE | 2017-05-04 19:25 | NUR ---
AIR DISPATCHER NOTE RECEIVED PATIENT FROM DAY SHIFT, PATIENT IS OBTUNDED, OPENS EYES, NON-VERBAL, ON VENT-DEPENDENT, NO S/S OF RESPIRATORY DISTRESS. TELE MONITOR SR 74. HAS HL ON RIGHT HAND AND LEFT CHEST WALL HD CATH. G TUBE FEEDING 35ML/HR TOLERATING WELL, NO RESIDUAL PRESENT. SRX2, BED IN LOW POSITION, CALL LIGHT WITHIN REACH, WILL CONTINUE TO MONITOR PATIENT.
[2017-05-04] MEDS: PYRIDOXINE HCL 50 MG TABLET GT SCH (21:04)
--- NOTE | 2017-05-04 22:52 | NUR ---
PAINTER AND BODY MECHANIC APPRENTICE NOTE CHANGED HD CATH DRESSING DUE TO BLEEDING. PATIENT TOLERATED THE PROCEDURE WELL.
[2017-05-05] VITALS: BP 112/64
[2017-05-05] MEDS: ALBUTEROL FS 2.5 MG/0.5 ML VIAL.NEB IH SCH ×3 (01:32→14:04)
[2017-05-05] MEDS: IPRATROPIUM NEB FS 0.5 MG/2.5 ML AMPUL.NEB IH SCH ×3 (01:32→14:04)
[2017-05-05 04:00] VITALS: BP 111/64
[2017-05-05] MEDS: hydrALAZINE HCL 25 MG TABLET GT SCH ×2 (04:59→12:01)
[2017-05-05] MEDS: DILTIAZEM HCL 30 MG TABLET GT SCH ×2 (05:35→11:44)
[2017-05-05] MEDS: BLOOD SUGAR DIAGNOSTIC 1 EACH STRIP IN SCH ×2 (05:35→11:41)
[2017-05-05] MEDS: INSULIN REGULAR, HUMAN 100 UNIT/ML 3 ML VIAL SQ PRN ×2 (05:37→11:44)
--- NOTE | 2017-05-05 06:45 | NUR ---
MEMBER OF THE LEGISLATIVE ASSEMBLY NOTE NO ACUTE EVENT THROUGHOUT THE CERTIFIED MEDICAL TECHNICIAN ASSISTANT, MORNING CARE RENDERED, Q2H TURN AND REPOSITION. G TUBE TOLERATING WELL, NO S/S OF RESPIRATORY DISTRESS. TELE MONITOR SR 72. WILL ENDORSE TO DAY SHIFT NURSE FOR KRYS.
[2017-05-05 07:35] LABS: BASOPHILS % (AUTO) 0.5 % (0.0-2.0); EOSINOPHILS # (AUTO) 0.1 /CMM (0.0-0.7); EOSINOPHILS % (AUTO) 3.5 % (0.0-6.0); HEMATOCRIT 28 % (39-51); HEMOGLOBIN 9.5 g/dL (13.5-17.5); LYMPHOCYTES # (AUTO) 0.4 /CMM (0.8-4.8); LYMPHOCYTES % (AUTO) 10.3 % (20.0-44.0); MEAN CORPUSCULAR HEMOGLOBIN 34 PG (26.0-33.0); MEAN CORPUSCULAR HGB CONC 34 g/dl (31.0-36.0); MEAN CORPUSCULAR VOLUME 100 fL (80-96); MONOCYTES # (AUTO) 0.2 /CMM (0.1-1.30); MONOCYTES % (AUTO) 4.9 % (2.0-12.0); NEUTROPHILS # (AUTO) 2.8 /CMM (1.8-8.9); NEUTROPHILS % (AUTO) 80.8 % (43.0-81.0); RDW COEFFICIENT OF VARIATION 17.5 (11.5-15.0); RED BLOOD CELL COUNT(AUTO) 2.78 MIL/uL (4.5-6.0); WHITE BLOOD COUNT (AUTO) 3.5 K/uL (4.3-11.0)
--- NOTE | 2017-05-05 07:50 | NUR ---
PET CARE WORKER NOTES RECEIVED PATIENT IN BED, OBTUNDED, VENT SETTINGS ORDERED. NO APPARENT DISTRESS NOTED, NO SON NOTED, NO FACIAL GRIMACING NOTED. ON TELE MONITORING SR 74. G TUBE PATENT INFUSING NOVASOURCE AT 35ML/HR. IV LINE ON RIGHT HAND PATENT AND INTACT. ALL NEEDS MET, CALL LIGHT WITHIN REACH.
[2017-05-05 08:00] VITALS: BP 124/74
[2017-05-05 08:04] LABS: PLATELET COUNT (AUTO) 35 /CMM (150-450)
[2017-05-05 08:07] LABS: CREATININE 4.9 mg/dL (0.6-1.3); MAGNESIUM 2.6 mg/dL (1.8-2.4); PHOSPHORUS 4.4 mg/dL (2.5-4.9)
[2017-05-05] MEDS: GABAPENTIN 100 MG CAPSULE GT SCH (08:57)
[2017-05-05] MEDS: DOCUSATE SODIUM LIQ 100 MG/10 ML UDC GT SCH (08:57)
[2017-05-05] MEDS: PROSOURCE / PROSTAT (PYXIS) 30 ML UDC GT SCH ×2 (08:57→12:01)
[2017-05-05] MEDS: VIT B CMPLX 3/FA/VIT C/BIOTIN 1 TAB TABLET PO SCH (08:57)
[2017-05-05] MEDS: SEVELAMER CARBONATE 0.8 GM POWD.PACK GT SCH ×2 (08:57→12:01)
[2017-05-05] MEDS: LEVETIRACETAM SOL (5 ML) 100 MG/ML UDC GT SCH (08:58)
[2017-05-05] MEDS: TRAMADOL HCL 50 MG TABLET PO SCH (08:58)
[2017-05-05] MEDS: FOLIC ACID 1 MG TABLET GT SCH (08:59)
[2017-05-05] MEDS: AMLODIPINE BESYLATE 5 MG TABLET GT SCH (08:59)
[2017-05-05] MEDS: NITROGLYCERIN 0.4 MG/HR PATCH.TD24 TD SCH (09:00)
[2017-05-05] MEDS: DOXAZOSIN MESYLATE (4 MG) 4 MG TABLET GT SCH (09:00)
[2017-05-05] MEDS: CARVEDILOL 12.5 MG TABLET PO SCH (09:00)
[2017-05-05] MEDS: Z GUARD REMEDY 2 OZ OINT TP SCH (09:05)
[2017-05-05] MEDS: HYDROGEL DRESSING 90 GM TUBE TP SCH (09:05)
[2017-05-05] MEDS: POLYVINYL ALCOHOL 15 ML BOTTLE EACHEYE SCH (09:06)
[2017-05-05] MEDS ORDERED: NITR1PAT9 TD (09:39)
[2017-05-05] MEDS: INSULIN DETEMIR 100 UNIT/ML CARTRIDGE SQ SCH (09:50)
[2017-05-05 10:20] LABS: BAND % (MANUAL) 5 % (0.0-5.0); LYMPHOCYTES % (MANUAL) 6 % (16-48); MONOCYTES % (MANUAL) 1 % (0-11.0); NEUTROPHILS % (MANUAL) 88 (42-76)
[2017-05-05 12:00] VITALS: BP 107/61
[2017-05-05 12:01] VITALS: BP 107/61
--- NOTE | 2017-05-05 15:55 | NUR ---
RE TELE CLOSING NOTES PATIENT LEFT, IN STABLE CONDITION, NO APPARENT DISTRESS NOTED,NO SOB, NO FACIAL GRIMACING NOTED. VENT SETTINGS ENDORSED TO TRANSPORT RT. ALL DUE MEDS GIVE, ALL NEEDS MET, KEPT CLEAN AND DRY. G TUBE PATENT, FLUSHED PRIOR TO D/C/ IV LINE DISCONTINUED NO S/S OF INFILTRATION NOTED. HD CATH PATENT DRESSING CLEAN AND INTACT. PATIENT UN ABLE TO SIGN, DISCHARGE INSTRUCTIONS CO SIGNED WITH ANOTHER RN.DISCHARGE INSTRUCTIONS GIVEN TO CLERK TELEVISION PRODUCTION. BELONGINGS LIST CO SIGNED BY TWO RNS, PATIENT HAS NO BELONGINGS. SKIN ASSESSMENT DONE NOTED WITH SACRAL STAGE 2 AND PERINEUM REDNESS. PICTURES TAKEN FOR THE CHART, EXIT CARE UTILIZED TO PROVIDE EDUCATIONAL MATERIAL. REPORT GIVEN TO ROZ STARK FROM [facility]. DAUGHTER JAQUELIN AWARE OF DISCHARGE.
== END 2017-05-05 15:00 | DRG 299 ==
LOC: ER 12:13 → TELE 15:01
PROVIDERS: ADMIT Internal Medicine Nephrology; ATTEND Internal Medicine Nephrology
PROC: 5A1955Z Respiratory Ventilation, Greater than 96 Consecutive Hours (ICD-10-PCS; principal; 2017-04-29)
PROC: 5A1D60Z (ICD-10-PCS; 2017-05-01)
DX: I82.622 Acute embolism and thrombosis of deep veins of left upper extremity (principal); N18.6 End stage renal disease; G93.40 Encephalopathy, unspecified; I12.0 Hypertensive chronic kidney disease with stage 5 chronic kidney disease or end stage renal disease; J96.11 Chronic respiratory failure with hypoxia; Z99.11 Dependence on respirator [ventilator] status; D61.818 Other pancytopenia; J90 Pleural effusion, not elsewhere classified; G40.909 Epilepsy, unspecified, not intractable, without status epilepticus; E11.22 Type 2 diabetes mellitus with diabetic chronic kidney disease; Z86.73 Personal history of transient ischemic attack (TIA), and cerebral infarction without residual deficits; Z99.2 Dependence on renal dialysis; R13.10 Dysphagia, unspecified; Z93.1 Gastrostomy status; Z93.0 Tracheostomy status; Z79.4 Long term (current) use of insulin; D69.6 Thrombocytopenia, unspecified; E87.70 Fluid overload, unspecified; D64.9 Anemia, unspecified; Z79.899 Other long term (current) drug therapy; Z83.3 Family history of diabetes mellitus
CPT/HCPCS: 31720; 36415; 71010-TC; 73070-TC; 73090-TC; 73200-TC; 80048-TC; 82947-TC; 82962-TC; 83735-TC; 84100-TC; 85025-TC; 85730-TC; 87081-TC; 90935-TC; 93971-TC; 94002-TC; 94003-TC; 94762-TC; 99082-TC; A4606; A6248; J1815; J1953; Z7610

== ENCOUNTER 2017-07-13 16:42 | Inpatient (IN) | payer MEDICARE, MEDICAID ==
[~2017-07-13] VITALS: Ht 167.6 cm; Wt 91.6 kg
[~2017-07-13 16:42] MED LIST changes: +AMIN887L GT; +DEXT15DR23 EACHEYE; +INSU100V26 SQ; -INSU100V27 SQ; -MERO1VIA IV; +SEVE800T8 GT
--- NOTE | 2017-07-13 16:45 | NUR ---
PATIENT BIB EMS D/T LOW H/H FROM SNF. PATIENT IS VENT/TRACH DEPENDENT. VITALS STABLE. NO SOB. SAFETY AND COMFORT MEASURES IN PLACE. MD AT BEDSIDE. AWAITING ORDERS.
--- NOTE | 2017-07-13 17:05 | NUR ---
NEW IV STARTED ON LAC, 18G. BLOOD DRAWN AND SENT TO LAB.
[2017-07-13 17:11] LABS: BASOPHILS # (AUTO) 0.1 /CMM (0.0-0.2); BASOPHILS % (AUTO) 1.9 % (0.0-2.0); EOSINOPHILS # (AUTO) 0.1 /CMM (0.0-0.7); EOSINOPHILS % (AUTO) 1.1 % (0.0-6.0); LYMPHOCYTES # (AUTO) 0.4 /CMM (0.8-4.8); LYMPHOCYTES % (AUTO) 7.9 % (20.0-44.0); MEAN CORPUSCULAR HEMOGLOBIN 34 PG (26.0-33.0); MEAN CORPUSCULAR HGB CONC 33 g/dl (31.0-36.0); MEAN CORPUSCULAR VOLUME 103 fL (80-96); MONOCYTES # (AUTO) 0.3 /CMM (0.1-1.30); MONOCYTES % (AUTO) 5.1 % (2.0-12.0); NEUTROPHILS # (AUTO) 4.8 /CMM (1.8-8.9); PLATELET COUNT (AUTO) 67 /CMM (150-450); RDW COEFFICIENT OF VARIATION 17.9 (11.5-15.0); WHITE BLOOD COUNT (AUTO) 5.7 K/uL (4.3-11.0)
[2017-07-13 17:12] LABS: RED BLOOD CELL COUNT(AUTO) 1.92 MIL/uL (4.5-6.0)
[2017-07-13 17:14] LABS: HEMATOCRIT 20 % (39-51); HEMOGLOBIN 6.6 g/dL (13.5-17.5)
--- NOTE | 2017-07-13 17:16 | NUR ---
H/H 6.04/[address] PARMAR INFORMED, NO NEW ORDERS AT THIS TIME
[2017-07-13 17:21] VITALS: BP 131/64
[2017-07-13 17:22] LABS: INR 1.04 (0.87-1.13); PROTHROMBIN TIME 10.8 SECS (9.5-12.7)
[2017-07-13 17:23] LABS: ALBUMIN 2.8 g/dL (3.4-5.0); BILIRUBIN,DIRECT 0.2 mg/dL (0.0-0.2); BILIRUBIN,TOTAL 0.5 mg/dL (0.2-1.0); CALCIUM, SERUM 8.8 mg/dL (8.5-10.1); CREATININE 3.5 mg/dL (0.6-1.3); POTASSIUM 4.2 mmol/L (3.5-5.1); TOTAL PROTEIN, SERUM 7.7 g/dL (6.4-8.2)
--- NOTE | 2017-07-13 17:24 | NUR ---
RT NOTE PT RECEIVED MECHANICALLY VENTILATED VIA PORTEX 8 TRACH TUBE. PT PLACED ON HOSPITAL VENT ON SETTINGS ENDORSED FROM TRANSPORT RT. ALARMS SET PER PROTOCOL AND AUDIBLE. CUFF INFLATED. AMBU BAG AT BED SIDE. VENT PLUGGED IN TO RED OUTLET. NO DISTRESS NOTED. WILL CONTINUE TO MONITOR. Addendum: 07/13/17 at 1727 by NIMO SZYMANSKI RT Amended: Links added.
--- NOTE | 2017-07-13 17:46 | NUR ---
REPORT GIVEN TO RNLEILANI FOR ADMISSION
--- NOTE | 2017-07-13 17:51 | NUR ---
CALLED [facility], DR SCHWARTZ WAS PAGED.
[2017-07-13] MEDS ORDERED: GLIP5TAB13 PO (17:57)
[2017-07-13] MEDS ORDERED: MIDO10TA GT (17:57)
[2017-07-13] MEDS ORDERED: IV NS 0.9% 1,000 ML BAG IV ONE (18:00)
[2017-07-13] MEDS ORDERED: PANTOPRAZOLE 40 MG/PACK PACK GT SCH ×2 (18:00→21:00)
[2017-07-13 18:16] LABS: BAND % (MANUAL) 19 % (0.0-5.0); LYMPHOCYTES % (MANUAL) 10 % (16-48); MONOCYTES % (MANUAL) 7 % (0-11.0); NEUTROPHILS % (MANUAL) 64 (42-76)
--- NOTE | 2017-07-13 18:40 | NUR ---
PATIENT TRANSPORTED TO [facility] VIA ACLS PROTOCOL FOR ADMISSION. RNLEILANI TO PROVIDE KRYS.
[2017-07-13 19:06] VITALS: BP 116/57
--- NOTE | 2017-07-13 19:16 | NUR ---
RN ARTIS RECEIVED PATIENT FROM ER WITH A RUNNING IV NS WIDE OPEN ON MECHANICAL VENTILATORY SUPPORT SATURATING WELL AFEBRILE OBTUNDED, SPONTANEOUSLY OPEN EYES GT TUBE CLAMPED MONITORED CLOSELY ENDORSED TO NOD
--- NOTE | 2017-07-13 19:30 | NUR ---
ARTIS RN INITIAL NOTE RECIEVED REPORT FROM LEILANI AYALA. ER ADMIT ARRIVED TO ARTIS AT 1840. ADMIT TO ARTIS, DX ANEMIA. RENAL GROUP ADMITTING DOCTOR. PT IN BED, ASLEEP, AROUSABLE WITH PAINFUL STIMULI. PT CHRONIC VENT TRACH, TOLERATING CURRENT VENT SETTINGS. LUNG SOUNDS CLEAR IN ALL BASES. BOWEL SOUNDS PRESENT. GT PATENT, INTACT AND CLAMPED. ANURIC. DIALYSIS PATIENT WITH LEFT CW HD ACCESS. IV PATENT AND INTACT. DAUGHTER AT BEDSIDE. BED IN LOW LOCKED POSITION. WILL CONTINUE TO MONITOR.
[2017-07-13 20:00] VITALS: BP 98/50
--- NOTE | 2017-07-13 20:00 | NUR ---
ARTIS RN CALLLED RENAL GROUP FOR ORDERS. ORDERS RECEIVED. MED RECON LIST SENT TO PHARMACY. WILL CARRY ORDERS OUT. WILL CONTINUE TO MONITOR.
[2017-07-13] MEDS ORDERED: INSULIN REGULAR, HUMAN 100 UNIT/ML 3 ML VIAL SQ PRN (20:30)
[2017-07-13] MEDS: glipiZIDE 5 MG TABLET GT SCH (20:57)
[2017-07-13] MEDS ORDERED: INSULIN DETEMIR 100 UNIT/ML CARTRIDGE SQ SCH (21:00)
[2017-07-13] MEDS ORDERED: RENAL NOVASOURCE 1,000 ML BOTTLE GT PRN (21:00)
[2017-07-13] MEDS: CARVEDILOL 6.25 MG TABLET GT SCH (21:00)
[2017-07-13] MEDS: SEVELAMER CARBONATE 0.8 GM POWD.PACK GT SCH (22:03)
[2017-07-13] MEDS: PYRIDOXINE HCL 50 MG TABLET GT SCH (22:03)
[2017-07-13] MEDS: LEVETIRACETAM SOL (5 ML) 100 MG/ML UDC GT SCH (22:03)
[2017-07-13] MEDS: GABAPENTIN 100 MG CAPSULE GT SCH (22:04)
[2017-07-13] MEDS: TRAMADOL HCL 50 MG TABLET GT SCH (22:04)
[2017-07-13 22:27] VITALS: BP 103/60
[2017-07-13 22:42] VITALS: BP 103/58
[2017-07-13 22:46] VITALS: BP 103/58
[2017-07-14] VITALS (26 sets, daily range): BP systolic 80–120; BP diastolic 36–74
[2017-07-14] MEDS ORDERED: BLOOD SUGAR DIAGNOSTIC 1 EACH STRIP IN SCH
[2017-07-14] MEDS: BLOOD SUGAR DIAGNOSTIC 1 EACH STRIP IN SCH ×4 (00:16→17:40)
--- NOTE | 2017-07-14 00:17 | NUR ---
ARTIS MEDINA HELD. BS CURRENTLY 87. FEEDING CURRENTLY RUNNING. WILL CONTINUE TO MONITOR.
[2017-07-14 06:39] LABS: BASOPHILS % (AUTO) 0.2 % (0.0-2.0); LYMPHOCYTES # (AUTO) 0.3 /CMM (0.8-4.8); LYMPHOCYTES % (AUTO) 9.2 % (20.0-44.0); MEAN CORPUSCULAR HEMOGLOBIN 34 PG (26.0-33.0); MEAN CORPUSCULAR HGB CONC 34 g/dl (31.0-36.0); MEAN CORPUSCULAR VOLUME 101 fL (80-96); MONOCYTES # (AUTO) 0.3 /CMM (0.1-1.30); MONOCYTES % (AUTO) 8.7 % (2.0-12.0); NEUTROPHILS % (AUTO) 81.9 % (43.0-81.0); PLATELET COUNT (AUTO) 57 /CMM (150-450); RDW COEFFICIENT OF VARIATION 19.6 (11.5-15.0); WHITE BLOOD COUNT (AUTO) 3.7 K/uL (4.3-11.0)
[2017-07-14 06:55] LABS: RED BLOOD CELL COUNT(AUTO) 1.94 MIL/uL (4.5-6.0)
[2017-07-14 06:56] LABS: ALBUMIN 2.3 g/dL (3.4-5.0); BILIRUBIN,TOTAL 0.5 mg/dL (0.2-1.0); CALCIUM, SERUM 8.1 mg/dL (8.5-10.1); CREATININE 3.8 mg/dL (0.6-1.3); POTASSIUM 4.4 mmol/L (3.5-5.1); TOTAL PROTEIN, SERUM 6.5 g/dL (6.4-8.2)
--- NOTE | 2017-07-14 07:40 | NUR ---
ARTIS RN NOTE RECEIVED PT IN BED, ASLEEP, EASILY ABUSABLE WITH PAINFUL STIMULI. WITH TRACH TO VENT SETTING ORDERED AMBU BAG AT HOB ON GT TUBE FEEDING ORDERED ,KEEP HOB ELEVATED AT ALL TIME , ORDERED ORDERED .PATIENT WITH LEFT CW HD ACCESS.LT AC IV HL PATENT AND INTACT.BED IN LOW LOCKED POSITION. WILL CONTINUE TO MONITOR., ON TELE MONITOR SR 74 , NOT IN ACUTE DISTRESS AT THIS TIME
[2017-07-14 07:53] LABS: HEMATOCRIT 20 % (39-51)
[2017-07-14 07:54] LABS: HEMOGLOBIN 6.6 g/dL (13.5-17.5)
[2017-07-14 08:19] LABS: BAND % (MANUAL) 7 % (0.0-5.0); EOSINOPHILS % (MANUAL) 1 % (0-4); LYMPHOCYTES % (MANUAL) 10 % (16-48); MONOCYTES % (MANUAL) 9 % (0-11.0); NEUTROPHILS % (MANUAL) 73 (42-76)
[2017-07-14] MEDS: glipiZIDE 5 MG TABLET GT SCH ×2 (08:27→16:45)
[2017-07-14] MEDS: LEVETIRACETAM SOL (5 ML) 100 MG/ML UDC GT SCH ×2 (08:27→21:34)
[2017-07-14] MEDS: SEVELAMER CARBONATE 0.8 GM POWD.PACK GT SCH ×3 (08:27→21:33)
[2017-07-14] MEDS: FOLIC ACID 1 MG TABLET GT SCH (08:27)
[2017-07-14] MEDS: GABAPENTIN 100 MG CAPSULE GT SCH ×2 (08:27→21:33)
[2017-07-14 08:28] LABS: HEMOGLOBIN 7.1 g/dL (13.5-17.5)
[2017-07-14] MEDS: VIT B CMPLX 3/FA/VIT C/BIOTIN 1 TAB TABLET GT SCH (08:28)
[2017-07-14] MEDS: TRAMADOL HCL 50 MG TABLET GT SCH ×2 (08:28→21:34)
[2017-07-14] MEDS: CARVEDILOL 6.25 MG TABLET GT SCH ×2 (08:29→21:00)
[2017-07-14] MEDS: PANTOPRAZOLE 40 MG/PACK PACK GT SCH ×2 (08:37→16:45)
--- NOTE | 2017-07-14 10:22 | NUR ---
BANQUET ATTENDANT NOTE SPOKE WITH DR ABRAMS AWARE THAT HG 7.1 OK TO TRANSFUSE 1 UNIT PRBC WITH HD TODAY
--- NOTE | 2017-07-14 10:57 | NUR ---
GABRIELA AYALA NOTE STOOL FOR OB X1 COLLECTED ORDERED Addendum: 07/14/17 at 1104 by IVET ALANIS RN CHEST X RAY DONE ORDERED
--- NOTE | 2017-07-14 11:13 | NUR ---
AUDITING SPECIALIST NOTE SPOKE WITH DIETITIAN ABOUT RATE G TUBE FEEDING ,STATED THAT WILL CHECK IT OUT RATE DOSE 24 HOUR. WILL F\U
[2017-07-14] MEDS: INSULIN DETEMIR 100 UNIT/ML CARTRIDGE SQ SCH ×2 (12:00)
[2017-07-14] MEDS: INSULIN REGULAR, HUMAN 100 UNIT/ML 3 ML VIAL SQ PRN (12:23)
--- NOTE | 2017-07-14 12:51 | NUR ---
INSIGHTS STRATEGIST NOTE SPOKE WITH UZIEL RN NO NOTIFY THAT PATIENT ON LEVEMIR 100 UNIT BID AND ON SLIDING SCALE BLOOD SUGAR 181MG\DL AND IN AM 103 , STATED TO HOLD DOSE FOR NOW UNTIL SEE PATIENT , WILL F\U
[2017-07-14] MEDS: ACETAMINOPHEN 650 MG/20.3 ML UDC GT PRN ×2 (13:05→18:06)
--- NOTE | 2017-07-14 13:30 | NUR ---
SECONDARY SCHOOL REGISTRAR NOTE SPOKE WITH UZIEL RN DIRECTOR OF EARLY CHILDHOOD EDUCATION NOTIFIED THAT ABDOMEN IS DISTENDED ,TYLENOL GIVEN ORDERED VIA G TUBE , STATED OK TO ORDER KUB , SLO PER DIETARY OK TO START G TUBE FEEDING AT 40 ML PER HOUR
--- NOTE | 2017-07-14 14:30 | NUR ---
WARE DRESSER NOTE CALLED TO DR ARCINIEGA NOTIFIED THAT PATIENT BECOME AGITATED ALARMING VENT AT ALL TIME,NEW ORDER GIVEN
[2017-07-14] MEDS: LORAZEPAM INJ 2 MG/ML VIAL IV PRN (14:56)
--- NOTE | 2017-07-14 15:01 | NUR ---
BOTTLE DEALER NOTE SPOKE WITH DR ABRAMS ABOUT LEVEMIR 100 UNIT BID, STATED HOLD FOR NOW AND CALL TO SNF TO VERIFY DOSE ,WILL F\U ALSO PATIENT BECOME AGITATED ,TYLENOL AT 1315 GIVEN , STILL WITH AGITATION ,KEEP CLEAN DRY, REPOSITION Q2 HOUR ATIVAN 0.5 MG IV GIVEN ORDERED BY DR ARCINIEGA
--- NOTE | 2017-07-14 15:41 | NUR ---
TRAINER NOTE NEW HL ON RT AC [place] 20 INSERTED BY RN FROM ICU SANCHEZ
--- NOTE | 2017-07-14 16:30 | NUR ---
GABRIELA AYALA NOTE ON HD AT THIS TIME Addendum: 07/14/17 at 1644 by IVET ALANIS RN PER DR JOSE ALBERTO MEDINA AT THIS TIME
--- NOTE | 2017-07-14 16:46 | NUR ---
SWITCH HOUSE OPERATOR NOTE HOLD MEDS VIA G TUBE ON HD AT THIS TIME, WILL F\U
[2017-07-14] MEDS ORDERED: LORAZEPAM INJ 2 MG/ML VIAL IV STA (17:22)
--- NOTE | 2017-07-14 17:36 | NUR ---
HEAT TREATER HEAD NOTE CALLED TO DR ABRAHAM NOTIFYED THAT DURING HD GET RESPIRATORY DISTRESS, HR 126 BP120/56 , WITH LABORED RESPIRATION , DR WYNN TO STOP HD DO ABG M CHEST XAY , OK TO GIVE ATIVAN 1XMG IVP NOW AND CALL TO [employer] DR FELIX
--- NOTE | 2017-07-14 17:39 | NUR ---
QUALITY CONTROL TECH RAW MATERIALS NOTE\ PER DR ABRAMS OK TO HOLD BLOOD TRANSFUSION T 99.1
--- NOTE | 2017-07-14 17:57 | NUR ---
MCAT INSTRUCTOR NOTE ABG DONE ORDERED AWAITING RESULT , CHEST X YENNY DONE ORDERED, CALLED TO DR FELIX SPUD SORTER ORDERED BY DR ABRAHAM STATED WILL CAME TO SEE PATIENT TOMORROW
[2017-07-14 18:01] LABS: ABG BASE EXCESS -2.8 mmol/L; ABG OXYGEN SATURATION 94.6 % (92.0-98.5); ABG PCO2 31.3 mmHg (35.0-45.0); ABG PH 7.439 (7.350-7.450); ABG PO2 78.6 mmHg (75.0-100.0); AaDO2 170.6 mmHg; COHb 0.3 % (0.5-1.5); O2Hb 93.4 % (94.0-97.0); PEEP,BG 5 cm H2O; SITE, ABG Right Radial; VENT MODE, BG AC 16 500 40% +5; VT, ABG 500 mL
[2017-07-14] MEDS ORDERED: IV NS 0.9% 500 ML IV ONE (18:30)
--- NOTE | 2017-07-14 18:35 | NUR ---
ARTIS AYALA NOTE BOLUS 500 ML STARTED ORDERED Addendum: 07/14/17 at 1838 by IVET ALANIS RN DR DE LEON NOTIFIED THAT BP 92/46 NOT RESPONDING TO TACTYL OR VERBAL STIMULI, ORDER 500 ML BOLUS
--- NOTE | 2017-07-14 18:44 | NUR ---
ARTIS RN NOTE TB 102.3 COOLING MEASURE PROVIDED, , PER MD ORDER ORDERED TROPONIN,EKG BLOOD CX AND LACTIC ACID, WILL MONITOR CLOSELY PER DR DE LEON IF BP NOT GET BETTER WILL TRANSFER TO ICU Addendum: 07/14/17 at 1852 by IVET ALANIS RN DR DE LEON AWARE OF ABG RESULT
--- NOTE | 2017-07-14 19:20 | NUR ---
ARTIS AYALA NOTE ENDORSED CARE TO NEXT SHIFT ANDREW AYALA Addendum: 07/14/17 at 1921 by IVET ALANIS RN ENDORSED CARE TO JAMIE WHITING
--- NOTE | 2017-07-14 19:50 | NUR ---
RN NOTES RECEIVED THE PATIENT OBTUNDED ON BED, NON-VERBAL, OPENS EYES ONLY. ON VENT, AC 16, 40% FIO2, TV 500, PEEP 5, SATURATING WELL BUT HAS LABORED BREATHING. CURRENTLY SINUS TACH ON THE MONITOR, HR 100-110'S. GTUBE FEEDING OF NOVASOURCE (40MLS/HR), IS CURRENTLY HELD. PT IS DIAPHORETIC, WITH TEMP OF 102.8, COOLING MEASURES HAS BEEN STARTED, TYLENOL HAS BEEN GIVEN. PT IS ANURIC. RIGHT AC 20G WITH 500MLS NS BOLUS RUNNING IS FLUSHED AND PATENT, NO S/S OF INFILTRATION/INFECTION, DRESSING CDI. BED LOW AND LOCKED, SIDERAILS UP. WILL MONITOR
--- NOTE | 2017-07-14 20:00 | NUR ---
RN NOTES PT REMAINS TO BE HYPOTENSIVE AFTER BOLUS. CURRENT BP IS 80/36, HR 107. PER MD STANDING ORDER, PT TRANSFERRED TO ICU WHERE LEVOPHED WILL BE STARTED. GAVE BEDSIDE REPORT TO COOLER SERVICERJAMIE SHERMAN FOR PATIENT'S CONTINUITY OF CARE
[2017-07-14 20:15] LABS: TROPONIN I 0.082 ng/mL (0.00-0.056)
[2017-07-14 20:21] LABS: CREATINE KINASE MB 0.6 ng/mL (0-3.6)
--- NOTE | 2017-07-14 20:30 | NUR ---
BRAIDING MACHINE TENDER - NOTES - RECEIVED PT IN BED FROM [facility] FOR HYPOTENSION, PT IS VENT TRACH, PT IS AGONAL BREATHING, TEMP 102.9 CORE. PT NEEDS MIDLINE, WILL OBTAIN CONSENT FROM DAUGHTER BERHANE COLLIER. PT IS TACHYPNEIC AND TACHYCARDIC. WILL CALL MD TO REPORT LACTIC ACID LEVEL 3.9
--- NOTE | 2017-07-14 21:00 | NUR ---
CONSENT OBTAINED FROM DAUGHTER BERHANE COLLIER, CONFIRMED WITH SUPERVISOR BUFFING AND PASTING RENEE. PT INFORMED OF NEED FOR PICC LINE, AND BENEFITS AND RISKS
[2017-07-14] MEDS ORDERED: IV NS 0.9% 1,000 ML IV PRN (21:22)
[2017-07-14] MEDS ORDERED: VANCOMYCIN 1 GM VIAL ONE (21:29)
[2017-07-14] MEDS ORDERED: VANCOMYCIN 1 GM in IV D5W 250 ML IV ONE (21:30)
[2017-07-14] MEDS ORDERED: IV NS 0.9% 1,000 ML IV ONE (21:30)
--- NOTE | 2017-07-14 21:30 | NUR ---
DR WERNER CALLED AND NOTIFIED THAT PT IS HAS TEMP 102.9, AGONAL BREATHING, LACTIC ACID 3.9, PT STARTED ON ANTIBIOTICS, PT GIVEN 1L NS BOLUS, LABS ORDERED BMP, CBC, MAG, PHOS, PT STARTED ON LEVO TO KEEP MAP > 65, PICC LINE NURSE THELMA CALLED SAID HE WILL COME AT 0000.
[2017-07-14] MEDS: PYRIDOXINE HCL 50 MG TABLET GT SCH (21:33)
[2017-07-14] MEDS: NOREPINEPHRINE 16 MG in IV D5W 500 ML IV PRN (21:36)
[2017-07-14 21:47] LABS: HEMATOCRIT 23 % (39-51); HEMOGLOBIN 7.8 g/dL (13.5-17.5); LYMPHOCYTES # (AUTO) 0.1 /CMM (0.8-4.8); LYMPHOCYTES % (AUTO) 1.3 % (20.0-44.0); MEAN CORPUSCULAR HEMOGLOBIN 34 PG (26.0-33.0); MEAN CORPUSCULAR HGB CONC 34 g/dl (31.0-36.0); MEAN CORPUSCULAR VOLUME 101 fL (80-96); MONOCYTES # (AUTO) 0.2 /CMM (0.1-1.30); MONOCYTES % (AUTO) 2.6 % (2.0-12.0); NEUTROPHILS # (AUTO) 8.3 /CMM (1.8-8.9); NEUTROPHILS % (AUTO) 96.1 % (43.0-81.0); PLATELET COUNT (AUTO) 60 /CMM (150-450); RDW COEFFICIENT OF VARIATION 20.8 (11.5-15.0); RED BLOOD CELL COUNT(AUTO) 2.28 MIL/uL (4.5-6.0); WHITE BLOOD COUNT (AUTO) 8.6 K/uL (4.3-11.0)
[2017-07-14] MEDS ORDERED: CEFEPIME 1 GM VIAL ONE (22:01)
[2017-07-14 22:05] LABS: BAND % (MANUAL) 21 % (0.0-5.0); MONOCYTES % (MANUAL) 7 % (0-11.0); NEUTROPHILS % (MANUAL) 72 (42-76)
[2017-07-14] MEDS: CEFEPIME 1 GM in IV D5W 50 ML IV SCH (22:08)
[2017-07-14 22:16] LABS: CALCIUM, SERUM 8.2 mg/dL (8.5-10.1); CREATININE 3.4 mg/dL (0.6-1.3); MAGNESIUM 2.2 mg/dL (1.8-2.4); PHOSPHORUS 2.6 mg/dL (2.5-4.9); POTASSIUM 4.3 mmol/L (3.5-5.1)
[2017-07-15] VITALS (98 sets, daily range): BP systolic 77–123; BP diastolic 42–83
[2017-07-15] MEDS: BLOOD SUGAR DIAGNOSTIC 1 EACH STRIP IN SCH ×5 (00:04→23:56)
[2017-07-15] MEDS: INSULIN REGULAR, HUMAN 100 UNIT/ML 3 ML VIAL SQ PRN ×3 (00:32→23:54)
[2017-07-15] MEDS: MIDODRINE HCL (5MG) 5 MG TABLET GT PRN (02:45)
[2017-07-15] MEDS ORDERED: Z GUARD REMEDY 2 OZ OINT TP PRN (08:30)
--- NOTE | 2017-07-15 08:30 | NUR ---
PT OPENS EYES TO SPEECH AND ABLE TO BLINK APPROPRIATELY TO YES/NO QUESTIONS. LARGE AMOUNT OF LIQUID STOOL NOTED. FULL BED BATH AND SKIN CARE PERFORMED. DR SCHWARTZ HERE TO SEE PT OK TO INSERT FLEXI SEAL FOR SKIN PROTECTION. STOOL OB AND STOOL CDIF SENT.
[2017-07-15] MEDS: glipiZIDE 5 MG TABLET GT SCH ×2 (09:00→17:01)
[2017-07-15] MEDS: LEVETIRACETAM SOL (5 ML) 100 MG/ML UDC GT SCH ×2 (09:32→20:34)
[2017-07-15] MEDS: GABAPENTIN 100 MG CAPSULE GT SCH ×2 (09:32→20:34)
[2017-07-15] MEDS: SEVELAMER CARBONATE 0.8 GM POWD.PACK GT SCH ×3 (09:32→20:35)
[2017-07-15] MEDS: VIT B CMPLX 3/FA/VIT C/BIOTIN 1 TAB TABLET GT SCH (09:32)
[2017-07-15] MEDS: PANTOPRAZOLE 40 MG/PACK PACK GT SCH ×2 (09:33→17:00)
[2017-07-15] MEDS: Z GUARD REMEDY 2 OZ OINT TP SCH ×2 (09:33→17:00)
[2017-07-15] MEDS: FOLIC ACID 1 MG TABLET GT SCH (09:33)
[2017-07-15] MEDS: TRAMADOL HCL 50 MG TABLET GT SCH ×2 (09:33→20:35)
[2017-07-15] MEDS: CEFEPIME 1 GM in IV D5W 50 ML IV SCH ×2 (09:34→20:35)
--- NOTE | 2017-07-15 10:00 | NUR ---
DAUGHTER AT BEDSIDE. UPDATED PN PROGRESS, EMOTIONAL SUPPORT PROVIDED.
--- NOTE | 2017-07-15 10:49 | NUR ---
WOUND CARE CONSULT PATIENT SEEN AND SKIN INTEGRITY ASSESSMENT DONE. PLEASE SEE VERIFICATION CLERK ASSESSMENT IN PCS FOR TODAY ALONG WITH ALL RECOMMENDATIONS. TREATMENT PLANS DISCUSSED WITH MD AND MD IN AGREEMENT. PATIENT ON ALEJANDRO ISOFLEX LOW AIRLOSS SPECIALTY BED. RECOMMEND CONTINUE TURNING SCHED Q 2 HOURS, BILATERAL HEEL FLOATING, CONTINUED USE OF Z GUARD. PATIENT NOTED TO BE HAVING LARGE AMOUNTS OF LIQUID STOOL. FMS IN PLACE AT THIS TIME. ALL SKIN MANAGEMENT AND TREATMENT PLANS DISCUSSED WITH NURSING STAFF AT THE BEDSIDE. RECOMMEND SURGICAL CONSULT FOR POSSIBLE DEBRIDEMENT PATIENT CONDITION PERMITS. PATIENT WITH CURRENT NATALIIA AT 11. PATIENT NOTED TO HAVE MULTIPLE CO-MORBIDITIES AT THIS TIME. Addendum: 07/15/17 at 1053 by NASREEN LEA WNDNU Amended: Links added.
[2017-07-15] MEDS: INSULIN DETEMIR 100 UNIT/ML CARTRIDGE SQ SCH ×3 (12:00→23:57)
--- NOTE | 2017-07-15 12:30 | NUR ---
PBS 201. LEVEMIR 100 UNITS ORDERED, DR EFREN Sprague PAGED TO CLARIFY THE ORDER. HE ORDERED TO HOLD THE DOSE FOR NOW.
[2017-07-15] MEDS: HYDROGEL DRESSING 90 GM TUBE TP PRN ×2 (12:53→17:00)
[2017-07-15] MEDS: POLYVINYL ALCOHOL 15 ML BOTTLE EACHEYE PRN (12:54)
[2017-07-15] MEDS: HYDROGEL DRESSING 90 GM TUBE TP SCH (17:00)
--- NOTE | 2017-07-15 17:00 | NUR ---
HD IN PROGRESS. BP 79/52 LEVO INCRESED TO 6 MICS.
[2017-07-15] MEDS: RENAL NOVASOURCE 1,000 ML BOTTLE GT PRN (17:08)
--- NOTE | 2017-07-15 17:15 | NUR ---
HD COMPLETED, 3L OFF
[2017-07-15 17:42] LABS: URIC ACID 5.7 mg/dL (2.6-7.2)
[2017-07-15] MEDS: NOREPINEPHRINE 16 MG in IV D5W 500 ML IV PRN (18:46)
--- NOTE | 2017-07-15 19:26 | NUR ---
[facility] BARIATRIC BED ORDERED BY MISTAKE, CENTRAL NOTIFIED. [facility] AIR ORDERED.
--- NOTE | 2017-07-15 20:57 | NUR ---
PT RECEIVED TRACH ON VENT. PT TOLERATING VENT SETTINGS. SML AMT OF THIN WHITE SECRETIONS. VENT ALARMS SET AND AUDIBLE. VENT PLUGGED INTO RED OUTLET. AMBU BAG AT BEDSIDE. WILL CONTINUE TO MONITOR. Addendum: 07/15/17 at 2057 by ISAAC HARRINGTON RT Amended: Links added.
--- NOTE | 2017-07-15 21:00 | NUR ---
NARROW FABRIC LOOM FIXER - REC'D PT. TRACH/VENTED W/SETTINGS AT AC-16, TV-500,40% & NO PEEP. PT.IS A QUADRIPLEGIC & USES "BLINKING" FOR ANSWERING QUESTIONS ASKED. PT'S DAUGHTER-JAQUELIN PHONED, & AFTER VERIFYING B'DAY, STATUS UPDATE WAS GIVEN OVER PHONE. PT. HAD LEVOPHED GTT. AT 6 MCG/MIN, BUT WAS TITRATED DOWN TO 4MCG/MIN. AT 1999 DUE TO SBP'S IN THE 120'S.HR/NSR. PT. IS PEGGED W/NOVASOURCE INFUSING AT 20CC/HR. AFEBRILE. ANURIC. PT. HAD HD DONE TODAY & HAD 3LITERS REMOVED. FLEXISEAL TO GRAVITY. RUE PICC LINE & PIV'S HAVE ALL PORTS PATENT TO FLUSH. ISOLATION PENDING. LAB PHONED & PRELIMINARY BC'S SHOWED GRAM NEG. RODS FROM 07/14/2017. CONT. POC.
[2017-07-15] MEDS: PYRIDOXINE HCL 50 MG TABLET GT SCH (22:23)
--- NOTE | 2017-07-15 23:58 | NUR ---
EVENT STAFF - PT'S BLOOD SUGAR IS #214. PT. WAS ADM. 8 UNITS REG. INSULIN PER S/S. PT. HAS EMAR ORDER FOR 100 UNITS OF LEVEMIR. THE LAST 2 DAYS, LEVEMIR WAS NOT ADMINISTERED. AT PRESENT THERE IS A "HOLD" MISC. ORDER FOR LEVEMIR. PT.IS NOW ON NOVASOURCE TF AT 40CC/HR (GOAL IS AT 60CC/HR). LEVEMIR NOT GIVEN. WILL F/U W/DAYSHIFT RN TO CONFIRM WITH
[2017-07-16] VITALS (84 sets, daily range): BP systolic 87–136; BP diastolic 49–72
[2017-07-16 04:44] LABS: BASOPHILS % (AUTO) 0.2 % (0.0-2.0); EOSINOPHILS # (AUTO) 0.1 /CMM (0.0-0.7); EOSINOPHILS % (AUTO) 0.9 % (0.0-6.0); HEMATOCRIT 21 % (39-51); LYMPHOCYTES # (AUTO) 0.3 /CMM (0.8-4.8); LYMPHOCYTES % (AUTO) 4.5 % (20.0-44.0); MEAN CORPUSCULAR HEMOGLOBIN 34 PG (26.0-33.0); MEAN CORPUSCULAR HGB CONC 34 g/dl (31.0-36.0); MEAN CORPUSCULAR VOLUME 101 fL (80-96); MONOCYTES # (AUTO) 0.2 /CMM (0.1-1.30); MONOCYTES % (AUTO) 2.8 % (2.0-12.0); NEUTROPHILS % (AUTO) 91.6 % (43.0-81.0); PLATELET COUNT (AUTO) 60 /CMM (150-450); RDW COEFFICIENT OF VARIATION 20.8 (11.5-15.0); RED BLOOD CELL COUNT(AUTO) 2.03 MIL/uL (4.5-6.0); WHITE BLOOD COUNT (AUTO) 7.6 K/uL (4.3-11.0)
--- NOTE | 2017-07-16 05:00 | NUR ---
SERVICE NOW DEVELOPER - PT. WAS ADMINISTERED A COMPLETE BEDBATH W/ORAL,TRACH,VENT,DANIELA,PEG & WOUND/SKIN CARE. PT. WAS PLACED ON A KCI MATTRESS. LAB CALLED CRITICAL VALUE FOR H/H=6.9/21. DR. PEARL GONSALVES. CONT.POC.
[2017-07-16 05:11] LABS: CALCIUM, SERUM 8.2 mg/dL (8.5-10.1); CREATININE 2.7 mg/dL (0.6-1.3); MAGNESIUM 2.2 mg/dL (1.8-2.4); PHOSPHORUS 2.6 mg/dL (2.5-4.9); POTASSIUM 3.4 mmol/L (3.5-5.1)
[2017-07-16 05:39] LABS: HEMOGLOBIN 6.9 g/dL (13.5-17.5)
[2017-07-16] MEDS: INSULIN REGULAR, HUMAN 100 UNIT/ML 3 ML VIAL SQ PRN ×4 (08:10→23:50)
[2017-07-16] MEDS: BLOOD SUGAR DIAGNOSTIC 1 EACH STRIP IN SCH ×4 (08:10→23:43)
--- NOTE | 2017-07-16 08:50 | NUR ---
REVENUE STAMP CUTTER; F/U CALL CRITICAL LAB DR. SCHWARTZ EXCHANGE PAGED, DR. HERNANDEZ GALLERY ASSISTANT LEFT MESSAGE WITH EXCHANGE REGARDING NEED OF ORDERS FOR CRITICAL LAB VALUES. WILL F/U WITH CALL BACK
--- NOTE | 2017-07-16 09:30 | NUR ---
PROFESSOR/NURSE ANESTHETIST; PRIMARY DR. SCHWARTZ AT BEDSIDE UPDATE WAS GIVEN. DISCUSSED REGARDING H/H LEVELS ON . NEW ORDERS GIVEN TO TRANSFUSE ONE UNIT OF PRBC. WILL F/U WITH LAB
[2017-07-16 09:53] LABS: BAND % (MANUAL) 8 % (0.0-5.0); LYMPHOCYTES % (MANUAL) 2 % (16-48); NEUTROPHILS % (MANUAL) 90 (42-76)
[2017-07-16] MEDS: LEVETIRACETAM SOL (5 ML) 100 MG/ML UDC GT SCH ×2 (09:56→21:06)
[2017-07-16] MEDS: SEVELAMER CARBONATE 0.8 GM POWD.PACK GT SCH ×3 (09:56→21:11)
[2017-07-16] MEDS: glipiZIDE 5 MG TABLET GT SCH ×2 (09:57→17:26)
[2017-07-16] MEDS: GABAPENTIN 100 MG CAPSULE GT SCH ×2 (09:57→21:11)
[2017-07-16] MEDS: PANTOPRAZOLE 40 MG/PACK PACK GT SCH ×2 (09:57→17:23)
[2017-07-16] MEDS: TRAMADOL HCL 50 MG TABLET GT SCH ×2 (09:57→21:12)
[2017-07-16] MEDS: VIT B CMPLX 3/FA/VIT C/BIOTIN 1 TAB TABLET GT SCH (09:57)
[2017-07-16] MEDS: FOLIC ACID 1 MG TABLET GT SCH (09:58)
[2017-07-16] MEDS: HYDROGEL DRESSING 90 GM TUBE TP SCH (09:58)
[2017-07-16] MEDS: POTASSIUM CL. PREMIX PERIPHER. 50 ML IV SCH ×2 (09:58→11:06)
[2017-07-16] MEDS: CEFEPIME 1 GM in IV D5W 50 ML IV SCH ×2 (10:24→20:19)
[2017-07-16] MEDS: INSULIN DETEMIR 100 UNIT/ML CARTRIDGE SQ SCH ×3 (12:00→23:48)
[2017-07-16] MEDS: IV NS 0.9% 250 ML IV PRN (17:24)
[2017-07-16] MEDS: RENAL NOVASOURCE 1,000 ML BOTTLE GT PRN (17:24)
--- NOTE | 2017-07-16 19:25 | NUR ---
HAND WEAVER: RECEIVED CHRONIC VENT DEPENDENT PT AWAKE AND ALERT. ABLE TO FOLLOW SIMPLE COMMANDS VIA FACIAL GESTURES. TOLERATING VENT SETTINGS ORDERED WT NO ACUTE DISTRESS. NO C/O PAIN OR EVIDENCE OF DISCOMFORT. S/P 1 PRBC TRANSFUSION WT NO ADVERSE REACTIONS AT THIS TIME. AFEBRILE. TOLERATING GTF WT NO RESIDUAL. NSR ON CONCESSIONIST AND STILL OFF LEVOPHED. HOB AT 45 DEGREES. SAFETY PRECAUTION NOTED. WILL CONTINUE TO MONITOR.
[2017-07-16] MEDS: PYRIDOXINE HCL 50 MG TABLET GT SCH (21:11)
--- NOTE | 2017-07-16 23:30 | NUR ---
OFFSET ASSISTANT PRESS OPERATOR: PT AWAKE, WATCHING TV. NO ACUTE DISTRESS. NO EVIDENCE OF DISCOMFORT. ORAL CARE RENDERED AND TOLERATED WELL. VS WITHIN HIS BASELINE.
[2017-07-17] VITALS (23 sets, daily range): BP systolic 96–127; BP diastolic 48–99
[2017-07-17 04:52] LABS: BASOPHILS % (AUTO) 0.4 % (0.0-2.0); HEMATOCRIT 22 % (39-51); HEMOGLOBIN 7.4 g/dL (13.5-17.5); LYMPHOCYTES # (AUTO) 0.3 /CMM (0.8-4.8); LYMPHOCYTES % (AUTO) 8.3 % (20.0-44.0); MEAN CORPUSCULAR HEMOGLOBIN 33 PG (26.0-33.0); MEAN CORPUSCULAR HGB CONC 34 g/dl (31.0-36.0); MEAN CORPUSCULAR VOLUME 97 fL (80-96); MONOCYTES # (AUTO) 0.2 /CMM (0.1-1.30); MONOCYTES % (AUTO) 4.9 % (2.0-12.0); NEUTROPHILS % (AUTO) 86.4 % (43.0-81.0); RDW COEFFICIENT OF VARIATION 21.2 (11.5-15.0); RED BLOOD CELL COUNT(AUTO) 2.25 MIL/uL (4.5-6.0); WHITE BLOOD COUNT (AUTO) 3.5 K/uL (4.3-11.0)
[2017-07-17 05:09] LABS: CALCIUM, SERUM 8.1 mg/dL (8.5-10.1); CREATININE 3.4 mg/dL (0.6-1.3); MAGNESIUM 2.4 mg/dL (1.8-2.4); PHOSPHORUS 1.7 mg/dL (2.5-4.9); POTASSIUM 3.3 mmol/L (3.5-5.1)
--- NOTE | 2017-07-17 05:12 | NUR ---
MAMMA LOGIST: RECEIVED ABNORMAL LAB. RESULTS WT HGB NOW IMPROVED (S/P 1 UNIT PRBC) AT 7.4 FROM 6.9; PLATELET=48 FROM 60. NO ACTIVE BLEEDING AT THIS TIME. PER DR. FRASER'S NOTES, PT HAS CHRONIC THROMBOCYTOPENIA, ON 2013 IT WAS BETWEEN [phone]. WILL NOT CALL MD AT THIS TIME AND WILL ENDORSE TO DAY SHIFT. ARMINDA CHARGE NURSE MADE AWARE.
[2017-07-17 05:13] LABS: PLATELET COUNT (AUTO) 48 /CMM (150-450)
[2017-07-17] MEDS: BLOOD SUGAR DIAGNOSTIC 1 EACH STRIP IN SCH ×4 (05:43→23:34)
[2017-07-17] MEDS: INSULIN REGULAR, HUMAN 100 UNIT/ML 3 ML VIAL SQ PRN ×3 (05:44→23:45)
[2017-07-17 06:17] LABS: BAND % (MANUAL) 5 % (0.0-5.0); EOSINOPHILS % (MANUAL) 2 % (0-4); LYMPHOCYTES % (MANUAL) 8 % (16-48); NEUTROPHILS % (MANUAL) 85 (42-76)
--- NOTE | 2017-07-17 06:25 | NUR ---
DELINQUENT TAX COLLECTOR: NO SIGNIFICANT KRYS. VS WITHIN HIS BASELINE. NO ACUTE DISTRESS. NO EVIDENCE OF DISCOMFORT. HOB AT 45 DEGREES AT ALL TIMES.
[2017-07-17] MEDS: SEVELAMER CARBONATE 0.8 GM POWD.PACK GT SCH ×3 (08:30→20:54)
[2017-07-17] MEDS: GABAPENTIN 100 MG CAPSULE GT SCH ×2 (08:30→20:54)
[2017-07-17] MEDS: LEVETIRACETAM SOL (5 ML) 100 MG/ML UDC GT SCH ×2 (08:30→20:54)
[2017-07-17] MEDS: VIT B CMPLX 3/FA/VIT C/BIOTIN 1 TAB TABLET GT SCH (08:30)
[2017-07-17] MEDS: PANTOPRAZOLE 40 MG/PACK PACK GT SCH ×2 (08:30→16:07)
[2017-07-17] MEDS: FOLIC ACID 1 MG TABLET GT SCH (08:31)
[2017-07-17] MEDS: glipiZIDE 5 MG TABLET GT SCH ×2 (08:31→16:07)
[2017-07-17] MEDS: TRAMADOL HCL 50 MG TABLET GT SCH ×2 (08:31→20:55)
[2017-07-17] MEDS: HYDROGEL DRESSING 90 GM TUBE TP SCH (08:32)
[2017-07-17] MEDS: CEFEPIME 1 GM in IV D5W 50 ML IV SCH ×2 (08:32→20:55)
[2017-07-17] MEDS: Z GUARD REMEDY 2 OZ OINT TP SCH (08:33)
[2017-07-17] MEDS ORDERED: POTASSIUM CHLORIDE 20 MEQ POWDER PACKET GT SCH (09:00)
[2017-07-17] MEDS: INSULIN DETEMIR 100 UNIT/ML CARTRIDGE SQ SCH ×2 (11:47→23:40)
--- NOTE | 2017-07-17 12:50 | NUR ---
LIVESTOCK BREEDER; transfer pt transfer to [facility] to room 115-1 via bed with ACLS protocol. report given to Genesis Gardner rn for KRYS. no acute distress noted. Pt's daughter at bedside update given.
--- NOTE | 2017-07-17 15:55 | NUR ---
CALLED [facility] HEMODIALYSIS NURSE TO FIND OUT WHAT TIME PT WILL HAVE HD. HE STATES THAT HE IS FOR HD TOMORROW. EXPLAINED TO HIM DR. SCHWARTZ PLACED ORDERS FOR TODAY 07/17/17. HE STATES HE WILL DOUBLE CHECK WITH EFREN AND CALL BACK.
[2017-07-17] MEDS: MIDODRINE HCL (5MG) 5 MG TABLET GT PRN (16:08)
--- NOTE | 2017-07-17 17:48 | NUR ---
HD NURSE IN FOR TX.
--- NOTE | 2017-07-17 19:50 | NUR ---
TD RN: HEMODIALYSIS DONE WT 3L FLUID OUT. PT REMAINED AWAKE AND ALERT. TOLERATING VENT SETTINGS ORDERED WT NO ACUTE DISTRESS. NO EVIDENCE OF DISCOMFORT. ABLE TO BLINK EYES FOR "YES" AND "NO" ANSWER. VS WITHIN HIS BASELINE. TOLERATING GTF WT NO RESIDUAL. HOB ELEVATED. WILL CONTINUE TO MONITOR.
[2017-07-17] MEDS: RENAL NOVASOURCE 1,000 ML BOTTLE GT PRN (20:32)
[2017-07-17] MEDS: IV NS 0.9% 250 ML IV PRN (20:57)
[2017-07-17] MEDS: PYRIDOXINE HCL 50 MG TABLET GT SCH (21:08)
--- NOTE | 2017-07-17 23:45 | NUR ---
CASE COORDINATOR: BETTINA DONE WT RESULT OF 168. WILL ADMINISTER LEVEMIR AND REGULAR INSULIN ORDERED. NO CHANGE OF CONDITION.
[2017-07-18] VITALS: BP 112/86
[2017-07-18 04:00] VITALS: BP 105/64
[2017-07-18] MEDS: BLOOD SUGAR DIAGNOSTIC 1 EACH STRIP IN SCH ×4 (06:07→23:56)
--- NOTE | 2017-07-18 07:15 | NUR ---
TD RN: DR. LEOS SAW AND EXAMINED THE PT AND NOTIFIED OF BLOOD CULTURE GRAM NEGATIVE RODS AND PT IS ON MAXIPIME AND SAID OK. AWAITING ORDERS. NO KRYS AT THIS TIME. VS WITHIN HIS BASELINE. WILL ENDORSED TO DAY SHIFT.
--- NOTE | 2017-07-18 07:35 | NUR ---
RN NOTES RECEIVED PT ON BED, OBTUNDED. TRACH MIDLINE, VENT DEPENDENT ON VENT SETTINGS PRESCRIBED. SUCTIONED FOR AIRWAY CLEARANCE. NO ACUTE DISTRESS. NO C/O PAIN OR EVIDENCE OF DISCOMFORT. NSR ON SENIOR JAVASCRIPT ENGINEER. ONGOING GTF NOVASOURCE@40ML/HR, NO RESIDUAL NOTED, HOB AT 45 DEGREES. REPOSITIONED FOR COMFORT, SAFETY PRECAUTION NOTED. CALL LIGHT WITHIN REACH, WILL CONTINUE TO MONITOR.
[2017-07-18 08:00] VITALS: BP 90/54
[2017-07-18] MEDS: PANTOPRAZOLE 40 MG/PACK PACK GT SCH ×2 (08:58→17:59)
[2017-07-18] MEDS: VIT B CMPLX 3/FA/VIT C/BIOTIN 1 TAB TABLET GT SCH (08:58)
[2017-07-18] MEDS: GABAPENTIN 100 MG CAPSULE GT SCH ×2 (08:58→21:06)
[2017-07-18] MEDS: glipiZIDE 5 MG TABLET GT SCH ×2 (08:58→17:59)
[2017-07-18] MEDS: LEVETIRACETAM SOL (5 ML) 100 MG/ML UDC GT SCH ×2 (08:58→21:06)
[2017-07-18] MEDS: SEVELAMER CARBONATE 0.8 GM POWD.PACK GT SCH ×3 (08:58→21:06)
[2017-07-18] MEDS: CEFEPIME 1 GM in IV D5W 50 ML IV SCH (08:58)
[2017-07-18] MEDS: Z GUARD REMEDY 2 OZ OINT TP SCH (08:59)
[2017-07-18] MEDS: HYDROGEL DRESSING 90 GM TUBE TP SCH (08:59)
[2017-07-18] MEDS: TRAMADOL HCL 50 MG TABLET GT SCH ×2 (08:59→21:06)
[2017-07-18] MEDS: FOLIC ACID 1 MG TABLET GT SCH (08:59)
[2017-07-18 12:00] VITALS: BP 111/53
[2017-07-18] MEDS: INSULIN DETEMIR 100 UNIT/ML CARTRIDGE SQ SCH ×2 (12:41→23:57)
--- NOTE | 2017-07-18 15:00 | NUR ---
RN NOTES PAGED DR CALABRESE REGARDING CLARIFICATION OF ORDER, AWAITING FOR CALL BACK
[2017-07-18 16:00] VITALS: BP 100/53
--- NOTE | 2017-07-18 17:30 | NUR ---
RN NOTES CALLED [facility] NEPHROLOGY FOR FOLLOW UP REGARDING CLARIFICATION OF ORDER, MD LIME SLUDGE KILN OPERATOR HAS BEEN PAGED AWAITING FOR CALL BACK.
--- NOTE | 2017-07-18 19:30 | NUR ---
BED BUG EXTERMINATOR INITIAL NOTE RECEIVED REPORT FROM RICKI AYALA. PT IN BED, NONVERBAL BUT CLOSES EYES TO ANSWER QUESTIONS TO COMMUNICATE NEEDS. UNDERSTANDS ISRAELI. LUNG SOUNDS RHONCHI, ORAL CARE PROVIDED, SUCTIONED FOR COMFORT. GT PATENT AND INTACT, CHECKED RESIDUAL NO FEEDING RESIDUAL NOTED, ONLY GAS. PULSES PRESENT. IV PATENT AND INTACT. FLEXI-SEAL PATENT AND INTACT. DIAPER IN PLACE. REPOSITIONED FOR COMFORT. BED IN LOW LOCKED POSITION. WILL CONTINUE TO MONITOR.
[2017-07-18 20:00] VITALS: BP 104/55
[2017-07-18] MEDS: PYRIDOXINE HCL 50 MG TABLET GT SCH (21:06)
[2017-07-18] MEDS: RENAL NOVASOURCE 1,000 ML BOTTLE GT PRN (23:56)
--- NOTE | 2017-07-18 23:57 | NUR ---
FAMILY PHYSICIANJAMIE MEDINA 100 UNITS NON ADMIN. PT BLOOD GLUCOSE 114. LAST GLUCOSE WAS 80. WILL CONTINUE TO MONITOR.
[2017-07-19] VITALS (7 sets, daily range): BP systolic 83–109; BP diastolic 43–62
--- NOTE | 2017-07-19 03:33 | NUR ---
PRESCHOOL PROGRAM DIRECTOR REPORT GIVEN TO KULWINDER FOR KRYS. PT STABLE AT THIS TIME.
[2017-07-19] MEDS: INSULIN REGULAR, HUMAN 100 UNIT/ML 3 ML VIAL SQ PRN ×2 (05:39→18:48)
[2017-07-19] MEDS: BLOOD SUGAR DIAGNOSTIC 1 EACH STRIP IN SCH ×4 (05:39→23:10)
[2017-07-19 07:20] LABS: BASOPHILS % (AUTO) 0.2 % (0.0-2.0); EOSINOPHILS # (AUTO) 0.1 /CMM (0.0-0.7); EOSINOPHILS % (AUTO) 2.2 % (0.0-6.0); HEMATOCRIT 22 % (39-51); HEMOGLOBIN 7.4 g/dL (13.5-17.5); LYMPHOCYTES # (AUTO) 0.3 /CMM (0.8-4.8); MEAN CORPUSCULAR HEMOGLOBIN 33 PG (26.0-33.0); MEAN CORPUSCULAR HGB CONC 33 g/dl (31.0-36.0); MEAN CORPUSCULAR VOLUME 98 fL (80-96); MONOCYTES # (AUTO) 0.1 /CMM (0.1-1.30); MONOCYTES % (AUTO) 5.5 % (2.0-12.0); NEUTROPHILS % (AUTO) 81.1 % (43.0-81.0); RDW COEFFICIENT OF VARIATION 20.4 (11.5-15.0); RED BLOOD CELL COUNT(AUTO) 2.26 MIL/uL (4.5-6.0); WHITE BLOOD COUNT (AUTO) 2.5 K/uL (4.3-11.0)
[2017-07-19 07:38] LABS: PLATELET COUNT (AUTO) 43 /CMM (150-450)
--- NOTE | 2017-07-19 08:00 | NUR ---
EXPEDITER SERVICE ORDER INITIAL NOTE RECEIVED PT IN BED, NONVERBAL BUT CLOSES EYES TO ANSWER QUESTIONS TO COMMUNICATE NEEDS. UNDERSTANDS HUNGARIAN. LUNG SOUNDS RHONCHI, ORAL CARE PROVIDED, SUCTIONED FOR COMFORT. GT PATENT AND INTACT,BLEEDING AT SITE CHECKED RESIDUAL NO FEEDING RESIDUAL NOTED, ONLY GAS. PULSES PRESENT. IV PATENT AND INTACT. FLEXI-SEAL PATENT AND INTACT. DIAPER IN PLACE. REPOSITIONED FOR COMFORT. BED IN LOW LOCKED POSITION. WILL CONTINUE TO MONITOR.PATIENT CLEANED AND DRESSED
[2017-07-19 08:18] LABS: CREATININE 2.3 mg/dL (0.6-1.3); POTASSIUM 3.2 mmol/L (3.5-5.1)
--- NOTE | 2017-07-19 08:54 | NUR ---
RN NOTES SPOKE WITH DR CALABRESE, CLARIFIED ATB ORDER PT IS RESISTANT TO CEFEPIME. MD AWARE NO ID ON BOARD, PER MD MAY NEED TO BE SEEN.
[2017-07-19] MEDS ORDERED: CEFEPIME 1 GM in IV D5W 50 ML IV SCH (09:00)
[2017-07-19 09:44] LABS: BAND % (MANUAL) 22 % (0.0-5.0); EOSINOPHILS % (MANUAL) 3 % (0-4); LYMPHOCYTES % (MANUAL) 15 % (16-48); MONOCYTES % (MANUAL) 8 % (0-11.0); NEUTROPHILS % (MANUAL) 52 (42-76)
[2017-07-19] MEDS: VIT B CMPLX 3/FA/VIT C/BIOTIN 1 TAB TABLET GT SCH (09:50)
[2017-07-19] MEDS: FOLIC ACID 1 MG TABLET GT SCH (09:50)
[2017-07-19] MEDS: SEVELAMER CARBONATE 0.8 GM POWD.PACK GT SCH ×3 (09:50→21:10)
[2017-07-19] MEDS: TRAMADOL HCL 50 MG TABLET GT SCH ×2 (09:50→21:11)
[2017-07-19] MEDS: GABAPENTIN 100 MG CAPSULE GT SCH ×2 (09:50→21:11)
[2017-07-19] MEDS: glipiZIDE 5 MG TABLET GT SCH ×2 (09:50→16:59)
[2017-07-19] MEDS: LEVETIRACETAM SOL (5 ML) 100 MG/ML UDC GT SCH ×2 (09:50→21:10)
[2017-07-19] MEDS: POTASSIUM CHLORIDE 20 MEQ POWDER PACKET NG SCH ×2 (09:50→12:34)
[2017-07-19] MEDS: HYDROGEL DRESSING 90 GM TUBE TP SCH (09:51)
[2017-07-19] MEDS: PANTOPRAZOLE 40 MG/PACK PACK GT SCH ×2 (09:51→16:59)
[2017-07-19] MEDS: Z GUARD REMEDY 2 OZ OINT TP SCH (09:51)
[2017-07-19] MEDS: MEROPENEM 500 MG in IV NS 0.9% 50 ML IV SCH ×2 (12:34→21:11)
[2017-07-19] MEDS: INSULIN DETEMIR 100 UNIT/ML CARTRIDGE SQ SCH ×2 (12:37→23:15)
[2017-07-19] MEDS: ACETAMINOPHEN 650 MG/20.3 ML UDC GT PRN (12:56)
--- NOTE | 2017-07-19 13:30 | NUR ---
RN NOTE KAMLESH SALAZAR MD NOTED Pancytopenia which is a medical condition in which there is a reduction in the number of red and white blood cells, as well as platelets. RN acknowledged understanding and will continue to follow MD care / treatment orders.CHARGE NURSE NOTIFIED
--- NOTE | 2017-07-19 14:04 | NUR ---
RN NOTE RN CONTACTED PATIENT DAUGHTER IN REGARDS TO RECEIVING CONSTANT FOR DEBRIDEMENT RISK AND BENEFIT EXPLAINED TO THE PATIENT FAMILY PATIENT FAMILY STATES THEY WOULD LIKE TO WAIT ON THE DEBRIDEMENT AND DO NOT GIVE CONSTANT AT THIS TIME AND WOULD LIKE TO WAIT UNTIL THE PATIENT B/P AND TEMP IS MORE STABLE. RN EXPRESSED UNDERSTANDING AND FOLLOWS FAMILYS WISHES.
[2017-07-19] MEDS ORDERED: SILVER NITRATE APPLICATOR 1 EA BOX TP ONE (14:30)
[2017-07-19] MEDS ORDERED: LIDOCAINE 1% INJ 50 ML MDV IJ ONE (14:30)
--- NOTE | 2017-07-19 20:12 | NUR ---
RN CLOSING NOTE PATIENT IN BED COMFORTABLE ALL NEEDS ATTENDED PATIENT NOT IN DISTRESS AT THIS TIME CBG ELEVATED THROUGHOUT THE DAY FAMILY UPDATED TEMP DECREASED , PATIENT STABLE , VITAL WNL , NOTIFIED OF FAMILIES DECISION TO NOT RECEIVE THE DEBRIDEMENT. MD SCHWARTZ NOTIFIED OF DECREASED PLATELET , CHARGE NURSE RICKI NOTIFIED AND PM RN NOTIFIED OF PATIENT PROGRESS TODAY. NO NEW ORDERS GIVEN AT THIS TIME
--- NOTE | 2017-07-19 20:30 | NUR ---
SHAKE FEEDER INITIAL NOTE RECEIVED REPORT FROM MICHELA AYALA. PT IN BED. NON VERBAL. CHRONIC VENT TRACH, TOLERATING CURRENT VENT SETTINGS. LUNG SOUNDS RHONCHI. BOWEL SOUNDS PRESENT , FLEXISEAL INTACT. PULSES PRESENT. IV PATENT AND INTACT. GT PATENT AND INTACT. BED IN LOW LOCKED POSITION. WILL CONTINUE TO MONITOR.
[2017-07-19] MEDS: PYRIDOXINE HCL 50 MG TABLET GT SCH (21:11)
[2017-07-19] MEDS: IV NS 0.9% 250 ML IV PRN (21:11)
[2017-07-19] MEDS: RENAL NOVASOURCE 1,000 ML BOTTLE GT PRN (22:59)
--- NOTE | 2017-07-19 23:45 | NUR ---
WOOD PILE DRIVER OPERATOR REPORT GIVEN TO GRACE FOR KRYS. PT STABLE AT THIS TIME
--- NOTE | 2017-07-19 23:45 | NUR ---
CHANGE OF CARE RECEIVED REPORT ON PT. LYING IN BED BREATHING COMFORTABLY ON VENT SETTINGS AC 16, TV 500, FI02 40%, NO PEEP- O2 SATS 100% ON CONTINUOUS PULSE OX. MONITORING SR. VSS. PER REPORT PT`S FAMILY REFUSED TO SIGN CONSENT FOR SACRAL WOUND DEBRIDEMENT- TO BE FOLLOWED UP ON DAY SHIFT
[2017-07-20] VITALS (11 sets, daily range): BP systolic 91–120; BP diastolic 41–64
--- NOTE | 2017-07-20 04:02 | NUR ---
RN NOTE FLEXISEAL CAME OUT- STOOL IS SOFT FORMED. DID NOT RE- INSERT STOOL IS NOT LIQUID
[2017-07-20] MEDS: ACETAMINOPHEN 650 MG/20.3 ML UDC GT PRN (04:32)
[2017-07-20] MEDS: INSULIN REGULAR, HUMAN 100 UNIT/ML 3 ML VIAL SQ PRN ×4 (06:11→23:49)
[2017-07-20] MEDS: BLOOD SUGAR DIAGNOSTIC 1 EACH STRIP IN SCH ×4 (06:12→23:50)
[2017-07-20 07:20] LABS: BASOPHILS % (AUTO) 0.4 % (0.0-2.0); EOSINOPHILS # (AUTO) 0.1 /CMM (0.0-0.7); HEMATOCRIT 21 % (39-51); LYMPHOCYTES # (AUTO) 0.5 /CMM (0.8-4.8); LYMPHOCYTES % (AUTO) 11.6 % (20.0-44.0); MEAN CORPUSCULAR HEMOGLOBIN 33 PG (26.0-33.0); MEAN CORPUSCULAR HGB CONC 33 g/dl (31.0-36.0); MEAN CORPUSCULAR VOLUME 99 fL (80-96); MONOCYTES # (AUTO) 0.3 /CMM (0.1-1.30); MONOCYTES % (AUTO) 7.1 % (2.0-12.0); NEUTROPHILS # (AUTO) 3.2 /CMM (1.8-8.9); NEUTROPHILS % (AUTO) 78.9 % (43.0-81.0); RDW COEFFICIENT OF VARIATION 20.8 (11.5-15.0); RED BLOOD CELL COUNT(AUTO) 2.15 MIL/uL (4.5-6.0)
[2017-07-20 07:29] LABS: ALBUMIN 2.5 g/dL (3.4-5.0); BILIRUBIN,TOTAL 0.7 mg/dL (0.2-1.0); CALCIUM, SERUM 8.6 mg/dL (8.5-10.1); CREATININE 3.3 mg/dL (0.6-1.3); MAGNESIUM 2.7 mg/dL (1.8-2.4); PHOSPHORUS 2.1 mg/dL (2.5-4.9); POTASSIUM 5.1 mmol/L (3.5-5.1); TOTAL PROTEIN, SERUM 7.3 g/dL (6.4-8.2)
--- NOTE | 2017-07-20 07:30 | NUR ---
SHIFT CHANGE HANDED OVER TO DAY SHIFT RN. PT ASLEEP BREATHING COMFORTABLY ON VENT SUPPORT VIA TRACH.. PT DID DESATURATE TO 84% THIS AM AND INCREASED TO 100% AFTER RT SUCTIONED PT.VITAL SIGNS SATISFACTORY.FLEXISEAL REMAINS OUT. NO BM YET
[2017-07-20 07:41] LABS: PLATELET COUNT (AUTO) 47 /CMM (150-450)
--- NOTE | 2017-07-20 08:00 | NUR ---
telecommunications cable jointer note patient in bed obtunded , with trach to vent setting as ordered, ambu bag at hob at all time, rt at bedside , on tele monitor sr , rt upper arm mid line in plce no s\s infection noted , bed in lowest and locked position , on gtube feeding as ordered ,keep hob elevated at all time, will cont to monitor closely
[2017-07-20] MEDS: VIT B CMPLX 3/FA/VIT C/BIOTIN 1 TAB TABLET GT SCH (08:50)
[2017-07-20] MEDS: SEVELAMER CARBONATE 0.8 GM POWD.PACK GT SCH ×3 (08:50→21:16)
[2017-07-20] MEDS: LEVETIRACETAM SOL (5 ML) 100 MG/ML UDC GT SCH ×2 (08:50→21:16)
[2017-07-20] MEDS: PANTOPRAZOLE 40 MG/PACK PACK GT SCH ×2 (08:51→16:37)
[2017-07-20] MEDS: TRAMADOL HCL 50 MG TABLET GT SCH ×2 (08:51→21:17)
[2017-07-20] MEDS: glipiZIDE 5 MG TABLET GT SCH ×2 (08:51→16:37)
[2017-07-20] MEDS: GABAPENTIN 100 MG CAPSULE GT SCH ×2 (08:51→21:16)
[2017-07-20] MEDS: Z GUARD REMEDY 2 OZ OINT TP SCH (08:52)
[2017-07-20] MEDS: HYDROGEL DRESSING 90 GM TUBE TP PRN (08:53)
[2017-07-20 08:54] LABS: BAND % (MANUAL) 4 % (0.0-5.0); EOSINOPHILS % (MANUAL) 2 % (0-4); LYMPHOCYTES % (MANUAL) 10 % (16-48); MONOCYTES % (MANUAL) 4 % (0-11.0); NEUTROPHILS % (MANUAL) 80 (42-76)
[2017-07-20] MEDS: FOLIC ACID 1 MG TABLET GT SCH (08:55)
[2017-07-20] MEDS: HYDROGEL DRESSING 90 GM TUBE TP SCH (09:27)
[2017-07-20] MEDS: MEROPENEM 500 MG in IV NS 0.9% 50 ML IV SCH ×2 (09:45→21:16)
--- NOTE | 2017-07-20 10:19 | NUR ---
SOAP DRIER OPERATOR NOTE SEEN BY DR ARCINIEGA NOTIFY THAT PATIENT HG 7.0 K 5.0 BP 94/44, NO NEW ORDER AT THIS TIME ,WILL CONT TO MONITOR CLOSELY
[2017-07-20] MEDS: INSULIN DETEMIR 100 UNIT/ML CARTRIDGE SQ SCH ×2 (12:00→23:49)
--- NOTE | 2017-07-20 12:23 | NUR ---
BRICK HANDLER NOTE WILL VERIFY DOSE OF LEVEMIR WITH DR SCHWARTZ BLOOD SUGAR 220 MG\DL
[2017-07-20] MEDS ORDERED: NEUTRA PHOS 1 POWD.PACKET NG ONE (13:00)
--- NOTE | 2017-07-20 13:20 | NUR ---
HOT STRIP MILL INSPECTOR NOTE CALLED TO DR SCHWARTZ LEFT A MESSAGE WITH EXCHANGE SERVICE THAT 7.0 K 5.1, WILL AWAIT FOR RETURN CALL Addendum: 07/20/17 at 1423 by IVET ALANIS RN 1422 DR SCHWARTZ DID NOT CALL YET, CALLED AGAIN TO DR STARR, SELINA F\U
--- NOTE | 2017-07-20 14:09 | NUR ---
GABRIELA KEARNEY PATIENT HAS LT SEDA WOUND , WOUND CARE NURSE CONSULT ORDERED Addendum: 07/20/17 at 1411 by IVET ALANIS RN GABRIELA CHASE
--- NOTE | 2017-07-20 14:33 | NUR ---
BUCKRAM SEWER NOTE DR SCHWARTZ CALLED BACK NOTIFIED THAT K 5.1 AND HG 7.0 ORDER I UNIT PRBC AND NO NEW ORDER ABOUT K 5.1. WILL SEE PATIENT SOON TODAY
--- NOTE | 2017-07-20 15:23 | NUR ---
APPLIED BIOLOGY PROFESSOR NOTE SPOKE WITH DR SCHWARTZ NOTIFIED THAT PATIENT ON LEVEMIR 100 UNITS BID STATED OK TO GIVE ,WILL F\U
--- NOTE | 2017-07-20 15:29 | NUR ---
AUTO DEALERSHIP PORTER NOTE CALLED BLOOD BANK NO BLOOD READY YET , WILL F\U
--- NOTE | 2017-07-20 16:46 | NUR ---
GABRIELA AYALA NOTE STARTED ON BLOOD TRANSFUSION 1 INIT PRBC , BP 92/52 HR 75 T98.8, NO ADVERSE REACTION NOTED WILL CONT TO MONITOR CLOSELY Addendum: 07/20/17 at 1816 by IVET ALANIS RN FAMILY AT BEDSIDE MOUTH CARE PROVIDED , ALL NEEDS ATTENDED, KEEP CLEAN DRY , CONT ON BLOOD TRANSFUSION ORDERED, I UNIT PRBC , WILL CONT TO MONITOR CLOSELY Addendum: 07/20/17 at 1916 by IVET ALANIS RN GABRIELA AYALA NOTE 1915 CONT O BLOOD TRANSFUSION, NO ADVERSE REACTION NOTED, ENDORSED CARE TO DANIEL AYALA NEXT SHIFT
--- NOTE | 2017-07-20 19:30 | NUR ---
MOSS GATHERER INITIAL NOTES RECEIVED PATIENT AWAKE, NON-VERBAL, FOLLOWS SIMPLE COMMANDS. FAMILY AT BEDSIDE. RESPIRATIONS EVEN AND UNLABORED. WITH VENT SETTINGS AC 16, TV 500, FIO2 40%, PEEP 0. TRACH C/D/I. ON TELE MONITOR SR 80. SKIN WARM AND DRY TO TOUCH. PATIENT WITH ONGOING UNIT OF PRBC. NO ADVERSE REACTIONS NOTED. GT PATENT AND INTACT, NO RESIDUAL NOTED. WITH CRISTINE PICC LINE PATENT AND INTACT. HOB ELEVATED. SIDE RAILS UP AND LOCKED. BED KEPT AT LOWEST POSITION. WILL CONTINUE TO MONITOR.
[2017-07-20] MEDS: PYRIDOXINE HCL 50 MG TABLET GT SCH (21:17)
[2017-07-20] MEDS: IV NS 0.9% 250 ML IV PRN (21:18)
[2017-07-21] VITALS: BP 114/56
[2017-07-21] MEDS: RENAL NOVASOURCE 1,000 ML BOTTLE GT PRN (01:42)
[2017-07-21 04:00] VITALS: BP 124/57
[2017-07-21] MEDS: BLOOD SUGAR DIAGNOSTIC 1 EACH STRIP IN SCH ×3 (05:16→17:43)
[2017-07-21] MEDS: INSULIN REGULAR, HUMAN 100 UNIT/ML 3 ML VIAL SQ PRN (05:22)
[2017-07-21] MEDS: ACETAMINOPHEN 650 MG/20.3 ML UDC GT PRN (06:10)
--- NOTE | 2017-07-21 06:49 | NUR ---
DUMP OPERATOR CLOSING NOTES NO SIGNIFICANT CHANGES NOTER. NO S/S OF BLEEDING NOTED. PAIN MANAGED NEEDED. RECEIVED ONE UNIT OF PRBC WITH NO ADVERSE EFFECTS. NO RESPIRATORY DISTRESS NOTED, TOLERATING CURRENT VENT SETTINGS. TOLERATING GTF, NO RESIDUAL NOTED. SKIN WARM AND DRY TO TOUCH. SR ON TELE MONITOR. PATIENT KEPT CLEAN AND DRY. TURNED AND AND REPOSITIONED Q2 AND PRN. WOUND TX ORDERED. DVT PUMPS IN PLACE. TRACH CARE DONE. HOB ELEVATED. SIDE RAILS UP AND LOCKED. BED KEPT AT LOWEST POSITION.
[2017-07-21 08:00] VITALS: BP 96/54
--- NOTE | 2017-07-21 08:12 | NUR ---
FILLING MIXER INITIAL NOTES RN RECEIVED PATIENT AWAKE, NON-VERBAL, FOLLOWS SIMPLE COMMANDS. VENT TRACH PATIENT VENT SETTINGS AC 16, TV 500, FIO2 40%, PEEP 0. TRACH C/D/I. ON TELE MONITOR. SKIN WARM AND DRY TO TOUCH. . GT PATENT AND INTACT, NO RESIDUAL NOTED. WITH CRISTINE PICC LINE PATENT AND INTACT. HOB ELEVATED. SIDE RAILS UP AND LOCKED. BED KEPT AT LOWEST POSITION. WILL CONTINUE TO MONITOR. NO NEW LABS AT THIS TIME
[2017-07-21] MEDS: BACITRACIN/POLYMYXIN B 15 GM TUBE TP SCH (09:00)
[2017-07-21] MEDS: VIT B CMPLX 3/FA/VIT C/BIOTIN 1 TAB TABLET GT SCH (09:08)
[2017-07-21] MEDS: SEVELAMER CARBONATE 0.8 GM POWD.PACK GT SCH ×3 (09:08→21:54)
[2017-07-21] MEDS: glipiZIDE 5 MG TABLET GT SCH ×2 (09:08→17:43)
[2017-07-21] MEDS: TRAMADOL HCL 50 MG TABLET GT SCH ×2 (09:09→21:54)
[2017-07-21] MEDS: PANTOPRAZOLE 40 MG/PACK PACK GT SCH ×2 (09:09→17:43)
[2017-07-21] MEDS: HYDROGEL DRESSING 90 GM TUBE TP SCH (09:09)
[2017-07-21] MEDS: GABAPENTIN 100 MG CAPSULE GT SCH ×2 (09:09→21:54)
[2017-07-21] MEDS: ZINC SULFATE 220 MG CAPSULE GT SCH (09:09)
[2017-07-21] MEDS: LEVETIRACETAM SOL (5 ML) 100 MG/ML UDC GT SCH ×2 (09:09→21:54)
[2017-07-21] MEDS: FOLIC ACID 1 MG TABLET GT SCH (09:09)
[2017-07-21] MEDS: Z GUARD REMEDY 2 OZ OINT TP SCH (09:10)
[2017-07-21] MEDS: MEROPENEM 500 MG in IV NS 0.9% 50 ML IV SCH ×2 (09:12→23:04)
[2017-07-21 12:00] VITALS: BP 105/55
[2017-07-21] MEDS: INSULIN DETEMIR 100 UNIT/ML CARTRIDGE SQ SCH (12:43)
[2017-07-21 16:00] VITALS: BP 109/56
--- NOTE | 2017-07-21 18:35 | NUR ---
RN CLOSING NOTE PATIENT STABLE THROUGHOUT THE DAY , PATIENT IS CURRENTLY IN BED NO DISTRESS NOTED , VENT SETTING THE SAME PATIENT TOLERATING WILL PATIENT TURNED AND REPOSITIONED Q 2HR, BED BATH GIVEN ALONG WITH ELECTRONICS RESEARCH ENGINEER ROUNDED WITH MDS , PATIENT RECEIVED HD TODAY 1.6L REMOVED VITALS STABLE PER AND POST HD 110/56 CURRENTLY NOT DISTRESS NOTED PATIENT SLEEPING , RN WILL ENDORSE CONTINUED CARE TO PM RN ,
--- NOTE | 2017-07-21 19:40 | NUR ---
PT RCVD ON MECH VENT WITH NOTED SETTINGS. SUCTION MODERATE AMOUNT OF WHITE THIN SECRETIONS. ALARM CHECKED AND AUDIBLE,VENT PLUGGED INTO RED OUTLET. BILATERAL BREATH SOUNDS NOTED, NO RESPIRATORY DISTRESS AT THIS TIME . WILL CONTINUE TO MONITOR THE PT.
[2017-07-21 20:00] VITALS: BP 95/44
--- NOTE | 2017-07-21 20:00 | NUR ---
RN INITIAL NOTE; PT ON THE BED , PT IS NON VERBAL . WITH TRACH CONNECTED TO VENT , SETTING ORDERED , TELE MONITOR SHOWING SR 90 , LCW HD CATH INTACT , CRISTINE PICC LINE AND RAC 20 G PERIPHERAL IV INTACT AND PATENT. G TUBE INTACT AND PATENT WITH CONTINUE NOVASOURCE @ 40 ML/HR , NO RESIDUAL NOTED , ASPIRATION PRECAUTION APPLIED. SAFETY MEASURES APPLIED , WILL TURN AND REPOSITION Q2H . WILL CONTINUE TO MONITOR .
[2017-07-21] MEDS: PYRIDOXINE HCL 50 MG TABLET GT SCH (21:55)
[2017-07-22] VITALS (10 sets, daily range): BP systolic 90–141; BP diastolic 30–60
[2017-07-22] MEDS: INSULIN DETEMIR 100 UNIT/ML CARTRIDGE SQ SCH ×3 (00:01→23:09)
[2017-07-22] MEDS: BLOOD SUGAR DIAGNOSTIC 1 EACH STRIP IN SCH ×5 (00:04→23:11)
[2017-07-22] MEDS: IV NS 0.9% 250 ML IV PRN (05:56)
[2017-07-22] MEDS: RENAL NOVASOURCE 1,000 ML BOTTLE GT PRN (05:56)
--- NOTE | 2017-07-22 07:20 | NUR ---
RN EOS NOTE' PT REMAINED STABLE DURING THE SHIFT. NO ANY DISTRESS NOTED . TELE MONITOR SHOWING SR 90s . ALL NEEDS ATTENDED PROMPTLY. TOTAL CARE AND WOUND CARE RENDERED , REPOSITION Q2H DONE . WILL ENDORSE TO NEXT SHIFT RN FOR CONTINUITY OF CARE,
--- NOTE | 2017-07-22 07:45 | NUR ---
RN NOTE RECEIVED PT FROM JOSE NURSE. PT NOTED WITH DRY CRACKED LIPS WITH DRY BLOOD ON THE RIGHT SIDE. MOUTH CARE AND TRACH CARE DONE APPLIED MOUTH MOISTURIZER WILL CONTINUE TO MONITOR.
[2017-07-22 07:53] LABS: ALBUMIN 2.4 g/dL (3.4-5.0); BILIRUBIN,TOTAL 0.6 mg/dL (0.2-1.0); CALCIUM, SERUM 8.5 mg/dL (8.5-10.1); CREATININE 3.4 mg/dL (0.6-1.3); MAGNESIUM 2.4 mg/dL (1.8-2.4); PHOSPHORUS 2.2 mg/dL (2.5-4.9); POTASSIUM 4.8 mmol/L (3.5-5.1)
[2017-07-22 07:55] LABS: BASOPHILS % (AUTO) 0.3 % (0.0-2.0); EOSINOPHILS # (AUTO) 0.1 /CMM (0.0-0.7); EOSINOPHILS % (AUTO) 2.2 % (0.0-6.0); HEMATOCRIT 22 % (39-51); HEMOGLOBIN 7.6 g/dL (13.5-17.5); LYMPHOCYTES # (AUTO) 0.5 /CMM (0.8-4.8); LYMPHOCYTES % (AUTO) 15.3 % (20.0-44.0); MEAN CORPUSCULAR HEMOGLOBIN 33 PG (26.0-33.0); MEAN CORPUSCULAR HGB CONC 34 g/dl (31.0-36.0); MEAN CORPUSCULAR VOLUME 98 fL (80-96); MONOCYTES # (AUTO) 0.3 /CMM (0.1-1.30); MONOCYTES % (AUTO) 8.2 % (2.0-12.0); NEUTROPHILS # (AUTO) 2.4 /CMM (1.8-8.9); RDW COEFFICIENT OF VARIATION 20.4 (11.5-15.0); RED BLOOD CELL COUNT(AUTO) 2.28 MIL/uL (4.5-6.0); WHITE BLOOD COUNT (AUTO) 3.2 K/uL (4.3-11.0)
[2017-07-22 08:06] LABS: PLATELET COUNT (AUTO) 35 /CMM (150-450)
[2017-07-22] MEDS: VIT B CMPLX 3/FA/VIT C/BIOTIN 1 TAB TABLET GT SCH (08:23)
[2017-07-22] MEDS: FOLIC ACID 1 MG TABLET GT SCH (08:23)
[2017-07-22] MEDS: glipiZIDE 5 MG TABLET GT SCH ×2 (08:23→17:42)
[2017-07-22] MEDS: LEVETIRACETAM SOL (5 ML) 100 MG/ML UDC GT SCH ×2 (08:23→20:33)
[2017-07-22] MEDS: PANTOPRAZOLE 40 MG/PACK PACK GT SCH ×2 (08:24→17:42)
[2017-07-22] MEDS: ZINC SULFATE 220 MG CAPSULE GT SCH (08:24)
[2017-07-22] MEDS: GABAPENTIN 100 MG CAPSULE GT SCH ×2 (08:24→20:33)
[2017-07-22] MEDS: SEVELAMER CARBONATE 0.8 GM POWD.PACK GT SCH ×3 (08:24→20:33)
[2017-07-22] MEDS: TRAMADOL HCL 50 MG TABLET GT SCH ×2 (08:24→20:33)
[2017-07-22] MEDS: Z GUARD REMEDY 2 OZ OINT TP SCH (08:25)
[2017-07-22] MEDS: BACITRACIN/POLYMYXIN B 15 GM TUBE TP SCH (08:25)
[2017-07-22] MEDS: HYDROGEL DRESSING 90 GM TUBE TP SCH (08:26)
[2017-07-22] MEDS: MEROPENEM 500 MG in IV NS 0.9% 50 ML IV SCH ×2 (09:34→21:14)
--- NOTE | 2017-07-22 10:37 | NUR ---
DAUGHTER JAQUELIN COLLIER CALLED AND GAVE CONSENT FOR WOUND DEBRIDEMENT. BECKY AYALA WITNESSED VERBAL CONSENT OVER PHONE.
[2017-07-22 11:05] LABS: BAND % (MANUAL) 5 % (0.0-5.0); EOSINOPHILS % (MANUAL) 2 % (0-4); LYMPHOCYTES % (MANUAL) 11 % (16-48); MONOCYTES % (MANUAL) 4 % (0-11.0); NEUTROPHILS % (MANUAL) 78 (42-76)
--- NOTE | 2017-07-22 14:32 | NUR ---
AJAY HD NURSE CONFIRMED WITH DR. SCHWARTZ 1 UNIT OF PRBC WITH HD TODAY. CALLED LAB AND CONFIRMED WITH MELL FROM BLOOD BANK.
--- NOTE | 2017-07-22 17:03 | NUR ---
1 UNIT OF PRBC GIVEN BY AJAY HD NURSE.
--- NOTE | 2017-07-22 20:17 | NUR ---
received pt from day shift, alert, follows simple commands, SR, on the vent, lungs partially congested, no edema, anuric, GT to feeding tolerates well, v/s stable, no pain, pt turned and repositioned.
[2017-07-22] MEDS: PYRIDOXINE HCL 50 MG TABLET GT SCH (21:13)
[2017-07-22] MEDS: INSULIN REGULAR, HUMAN 100 UNIT/ML 3 ML VIAL SQ PRN (23:11)
[2017-07-23] VITALS (7 sets, daily range): BP systolic 93–116; BP diastolic 24–57
--- NOTE | 2017-07-23 04:09 | NUR ---
pt is resting in the bed, no acute distress overnight, v/s stable, no pain, pt cleaned, changed and repositioned q2hrs.
[2017-07-23] MEDS: INSULIN REGULAR, HUMAN 100 UNIT/ML 3 ML VIAL SQ PRN (05:21)
[2017-07-23] MEDS: BLOOD SUGAR DIAGNOSTIC 1 EACH STRIP IN SCH ×3 (05:22→18:08)
--- NOTE | 2017-07-23 08:12 | NUR ---
AIRPLANE PILOT CROP DUSTING NOTE PATIENT IN BED , OBTUNDED BUT OPEN HIS EYES WHEN TOUCH HIM, WITH TRACH TO VENT SETTING ORDERED, AMBU BAG AT BEDSIDE AT ALL TIME , ON TELE MONITOR SR 81, WITH G TUBE FEEDING ORDERED ,NO RESIDUAL NOTED,KEEP HOB ELEVATED AT ALL TOME, CALL LIGHT WITHIN REACH , BED IN LOWEST AND LOCKED POSITION , RT UPPER ARM PICC LINE IN PLACE, DRESSING INTACT AND PATENT , NO EDEMA NOTED AT THIS TIME, WILL CONT TO MONITOR CLOSELY
[2017-07-23] MEDS: ZINC SULFATE 220 MG CAPSULE GT SCH (08:40)
[2017-07-23] MEDS: SEVELAMER CARBONATE 0.8 GM POWD.PACK GT SCH ×3 (08:40→21:30)
[2017-07-23] MEDS: LEVETIRACETAM SOL (5 ML) 100 MG/ML UDC GT SCH ×2 (08:40→21:30)
[2017-07-23] MEDS: GABAPENTIN 100 MG CAPSULE GT SCH ×2 (08:40→21:30)
[2017-07-23] MEDS: VIT B CMPLX 3/FA/VIT C/BIOTIN 1 TAB TABLET GT SCH (08:40)
[2017-07-23] MEDS: TRAMADOL HCL 50 MG TABLET GT SCH ×2 (08:41→21:30)
[2017-07-23] MEDS: glipiZIDE 5 MG TABLET GT SCH ×2 (08:41→17:53)
[2017-07-23] MEDS: PANTOPRAZOLE 40 MG/PACK PACK GT SCH ×2 (08:41→17:53)
[2017-07-23] MEDS: FOLIC ACID 1 MG TABLET GT SCH (08:42)
[2017-07-23] MEDS: HYDROGEL DRESSING 90 GM TUBE TP SCH (08:42)
[2017-07-23] MEDS: Z GUARD REMEDY 2 OZ OINT TP SCH (08:43)
[2017-07-23] MEDS: BACITRACIN/POLYMYXIN B 15 GM TUBE TP SCH (08:43)
[2017-07-23] MEDS: MEROPENEM 500 MG in IV NS 0.9% 50 ML IV SCH ×2 (10:12→21:30)
--- NOTE | 2017-07-23 12:00 | NUR ---
WELDER APPRENTICE GAS NOTE ALL NEEDS ATTENDED , TURN REPOSITOR Q 2 HOUR , NOT IN ACUTE DISTRESS
[2017-07-23] MEDS: INSULIN DETEMIR 100 UNIT/ML CARTRIDGE SQ SCH (13:11)
--- NOTE | 2017-07-23 15:33 | NUR ---
MOTHER BABY RN NOTE SEEN BY DR SCHWARTZ NO HD TODAY , WILL CANT TO MONITOR ACCORDANTLY
--- NOTE | 2017-07-23 19:00 | NUR ---
MICROBIOLOGY SUPERVISOR NOTES ALL NEEDS ATTENDED. FLUSHED GT WELL. GT CLOGGED AND WE DECLOTTED IT. WILL ENDORSE TO NEXT SHIFT TO FLUSH IT WELL. NOT IN ANY DISTRESS. NO SOB NOTED.
[2017-07-23] MEDS: PYRIDOXINE HCL 50 MG TABLET GT SCH (21:30)
[2017-07-24] VITALS (7 sets, daily range): BP systolic 75–114; BP diastolic 41–62
[2017-07-24] MEDS: BLOOD SUGAR DIAGNOSTIC 1 EACH STRIP IN SCH ×5 (00:17→23:35)
--- NOTE | 2017-07-24 00:19 | NUR ---
MED NOTE: 0000 JAIRO 100UNITS HELD. PT POC GLUCOSE 124. WNL. WILL CONTINUE TO MONITOR.
[2017-07-24] MEDS: RENAL NOVASOURCE 1,000 ML BOTTLE GT PRN (05:16)
[2017-07-24] MEDS: IV NS 0.9% 250 ML IV PRN (05:16)
[2017-07-24] MEDS: INSULIN REGULAR, HUMAN 100 UNIT/ML 3 ML VIAL SQ PRN ×4 (05:18→23:38)
[2017-07-24 06:36] LABS: BASOPHILS % (AUTO) 0.5 % (0.0-2.0); EOSINOPHILS # (AUTO) 0.1 /CMM (0.0-0.7); EOSINOPHILS % (AUTO) 2.1 % (0.0-6.0); HEMATOCRIT 24 % (39-51); HEMOGLOBIN 8.1 g/dL (13.5-17.5); LYMPHOCYTES # (AUTO) 0.4 /CMM (0.8-4.8); MEAN CORPUSCULAR HEMOGLOBIN 32 PG (26.0-33.0); MEAN CORPUSCULAR HGB CONC 34 g/dl (31.0-36.0); MEAN CORPUSCULAR VOLUME 94 fL (80-96); MONOCYTES # (AUTO) 0.2 /CMM (0.1-1.30); MONOCYTES % (AUTO) 6.3 % (2.0-12.0); NEUTROPHILS # (AUTO) 2.7 /CMM (1.8-8.9); NEUTROPHILS % (AUTO) 78.1 % (43.0-81.0); RDW COEFFICIENT OF VARIATION 21.4 (11.5-15.0); RED BLOOD CELL COUNT(AUTO) 2.52 MIL/uL (4.5-6.0); WHITE BLOOD COUNT (AUTO) 3.4 K/uL (4.3-11.0)
[2017-07-24 07:11] LABS: CALCIUM, SERUM 9.2 mg/dL (8.5-10.1); CREATININE 4.2 mg/dL (0.6-1.3); MAGNESIUM 2.6 mg/dL (1.8-2.4); PHOSPHORUS 4.1 mg/dL (2.5-4.9); POTASSIUM 4.9 mmol/L (3.5-5.1)
--- NOTE | 2017-07-24 07:30 | NUR ---
RN NOTES RECEIVED PATIENT IN BED ON [facility] VENT WITH BREATHING NORMAL, EVEN AND UNLABORED. NO SOB NOTED. NO ACUTE DISTRESS NOTED. VENT SETTING REVIEWED AND VERIFIED, TOLERATED WELL. TELE MONITOR REVEALS SR, HR=80. CRISTINE PICC LINE IS PATENT AND INTACT TKO. LCW HD CATH IS INTACT. ON GT FEED NOVASOURCE @40CC/HR. TOLERATED WELL. POSITIVE PLACEMENT. ASPIRATION PRECAUTION TAKEN. HOB ELEVATED. NO RESIDUAL NOTED. KEPT CLEAN, DRY AND COMFORTABLE. ALL NEEDS ATTENDED. SAFETY MEASURE OBSERVED. CALL LIGHT WITH IN REACH. WILL CONT TO MONITOR.
[2017-07-24 07:46] LABS: PLATELET COUNT (AUTO) 41 /CMM (150-450)
[2017-07-24] MEDS: VIT B CMPLX 3/FA/VIT C/BIOTIN 1 TAB TABLET GT SCH (08:23)
[2017-07-24] MEDS: SEVELAMER CARBONATE 0.8 GM POWD.PACK GT SCH ×3 (08:23→21:42)
[2017-07-24] MEDS: GABAPENTIN 100 MG CAPSULE GT SCH ×2 (08:24→21:42)
[2017-07-24] MEDS: ZINC SULFATE 220 MG CAPSULE GT SCH (08:24)
[2017-07-24] MEDS: PANTOPRAZOLE 40 MG/PACK PACK GT SCH ×2 (08:24→16:00)
[2017-07-24] MEDS: TRAMADOL HCL 50 MG TABLET GT SCH ×2 (08:24→21:43)
[2017-07-24] MEDS: LEVETIRACETAM SOL (5 ML) 100 MG/ML UDC GT SCH ×2 (08:24→21:42)
[2017-07-24] MEDS: FOLIC ACID 1 MG TABLET GT SCH (08:24)
[2017-07-24] MEDS: glipiZIDE 5 MG TABLET GT SCH ×2 (08:25→16:00)
[2017-07-24] MEDS: HYDROGEL DRESSING 90 GM TUBE TP SCH (08:27)
[2017-07-24] MEDS: Z GUARD REMEDY 2 OZ OINT TP SCH (08:27)
[2017-07-24] MEDS: BACITRACIN/POLYMYXIN B 15 GM TUBE TP SCH (08:29)
[2017-07-24] MEDS: MEROPENEM 500 MG in IV NS 0.9% 50 ML IV SCH ×2 (10:14→21:44)
[2017-07-24 10:42] LABS: BAND % (MANUAL) 1 % (0.0-5.0); EOSINOPHILS % (MANUAL) 4 % (0-4); LYMPHOCYTES % (MANUAL) 14 % (16-48); MONOCYTES % (MANUAL) 4 % (0-11.0); NEUTROPHILS % (MANUAL) 77 (42-76)
[2017-07-24] MEDS: INSULIN DETEMIR 100 UNIT/ML CARTRIDGE SQ SCH ×3 (12:04→23:39)
[2017-07-24] MEDS ORDERED: EPOETIN ALFA (10,000 UNIT) 10,000 UNIT/ML VIAL IV ONE (12:30)
[2017-07-24] MEDS: ACETAMINOPHEN 650 MG/20.3 ML UDC GT PRN (15:50)
--- NOTE | 2017-07-24 15:50 | NUR ---
RN NOTES PATIENT NOTED WITH TEMP 102.3, WR=280, BP 75/41. MD DR SCHWARTZ MADE AWARE. NOTIFIED MD PATIENT RECEIVED DIALYSIS TODAY WITH 2000L OUTPUT. RECEIVED ORDER OF BLOOD CULTURE AND NS BOLUS 500CC X1. ORDER NOTED AND CARRIED OUT. WILL CONT TO MONITOR.
[2017-07-24] MEDS ORDERED: IV NS 0.9% 500 ML IV ONE (16:00)
--- NOTE | 2017-07-24 19:02 | NUR ---
RN NOTES PATIENT ENDORSED TO NEXT SHIFT IN STABLE CONDITION WITH BREATHING NORMAL, EVEN AND UNLABORED. NO SOB NOTED. NO ACUTE DISTRESS NOTED. KEPT CLEAN, DRY AND COMFORTABLE. ALL NEEDS ATTENDED. SAFETY MEASURE OBSERVED. CALL LIGHT WITH IN REACH. WILL CONT TO MONITOR.
[2017-07-24] MEDS: PYRIDOXINE HCL 50 MG TABLET GT SCH (21:42)
[2017-07-24] MEDS: MIDODRINE HCL (5MG) 5 MG TABLET GT PRN (21:43)
[2017-07-25] VITALS: BP 97/49
[2017-07-25 04:00] VITALS: BP_SYST 91; BP_SYST 97; BP_DIAS 48; BP_DIAS 51
[2017-07-25] MEDS: IV NS 0.9% 250 ML IV PRN (05:12)
[2017-07-25] MEDS: BLOOD SUGAR DIAGNOSTIC 1 EACH STRIP IN SCH ×3 (05:13→17:03)
[2017-07-25] MEDS: RENAL NOVASOURCE 1,000 ML BOTTLE GT PRN (05:13)
[2017-07-25] MEDS: INSULIN REGULAR, HUMAN 100 UNIT/ML 3 ML VIAL SQ PRN ×2 (05:29→11:58)
[2017-07-25 08:00] VITALS: BP_SYST 127; BP_SYST 97; BP_DIAS 48; BP_DIAS 92
[2017-07-25] MEDS: FOLIC ACID 1 MG TABLET GT SCH (08:34)
[2017-07-25] MEDS: glipiZIDE 5 MG TABLET GT SCH ×2 (08:34→16:13)
[2017-07-25] MEDS: SEVELAMER CARBONATE 0.8 GM POWD.PACK GT SCH ×3 (08:34→21:27)
[2017-07-25] MEDS: VIT B CMPLX 3/FA/VIT C/BIOTIN 1 TAB TABLET GT SCH (08:34)
[2017-07-25] MEDS: ZINC SULFATE 220 MG CAPSULE GT SCH (08:34)
[2017-07-25] MEDS: LEVETIRACETAM SOL (5 ML) 100 MG/ML UDC GT SCH ×2 (08:34→21:27)
[2017-07-25] MEDS: GABAPENTIN 100 MG CAPSULE GT SCH ×2 (08:34→21:27)
[2017-07-25] MEDS: TRAMADOL HCL 50 MG TABLET GT SCH ×2 (08:34→21:27)
[2017-07-25] MEDS: PANTOPRAZOLE 40 MG/PACK PACK GT SCH ×2 (08:34→16:13)
[2017-07-25] MEDS: HYDROGEL DRESSING 90 GM TUBE TP SCH (08:35)
[2017-07-25] MEDS: Z GUARD REMEDY 2 OZ OINT TP SCH (08:35)
[2017-07-25] MEDS: BACITRACIN/POLYMYXIN B 15 GM TUBE TP SCH (08:36)
[2017-07-25] MEDS: MEROPENEM 500 MG in IV NS 0.9% 50 ML IV SCH ×2 (09:19→21:27)
[2017-07-25] MEDS: INSULIN DETEMIR 100 UNIT/ML CARTRIDGE SQ SCH (11:52)
[2017-07-25 12:00] VITALS: BP 104/54
[2017-07-25 16:00] VITALS: BP 104/54
[2017-07-25] MEDS: ACETAMINOPHEN 650 MG/20.3 ML UDC GT PRN (16:16)
--- NOTE | 2017-07-25 19:15 | NUR ---
RN INITIAL NOTES RECEIVED PATIENT IN BED, AWAKE AND ALERT, NONVERBAL AND ABLE TO NOD AND BLINK EYES WHEN PROMPTED TO MAKE BASIC NEEDS KNOWN. PATIENT DENIES ANY PAIN AND DISCOMFORT AT THIS TIME. NO DISTRESS. ON MECH VENT, TOLERATING CURRENT SETTINGS WELL, AIRWAY SUCTIONED NEEDED. TRACH, C/D/I, MIDLINE. SR ON TELE WITH HR IN THE 70s. GTF ORDERED, NO GASTRIC RESIDUAL NOTED, HOB ELEVATED. NOTED WITH CRISTINE PICC, SL, FLUSHED AND PATENT, GOOD BLOOD RETURN NOTED. R AC G20, FLUSHED AND PATENT. NOTED WITH LEFT CHESTWALL PERM-A-CATH, WITH DRESSING DRY AND INTACT. PATIENT IS TURNED AND REPOSITIONED. SAFETY AND COMFORT ENSURED. BED IN LOW AND LOCKED POSITION. CALL LIGHT IN REACH. WILL MONITOR.
[2017-07-25 20:00] VITALS: BP 101/53
[2017-07-25] MEDS: PYRIDOXINE HCL 50 MG TABLET GT SCH (21:27)
[2017-07-26] VITALS: BP 97/56
[2017-07-26] MEDS: BLOOD SUGAR DIAGNOSTIC 1 EACH STRIP IN SCH ×5 (00:20→23:41)
--- NOTE | 2017-07-26 00:30 | NUR ---
RN NOTES BS CHECKED AND NOTED TO BE 112. NO INSULIN GIVEN PER SLIDING SCALE. PATIENT ALSO WITH ORDER OF INSULIN DETEMIR 100u, NON-ADMINISTERED. PATIENT ON CONTINUOUS GTF ORDERED, NO INTOLERANCE NOTED. WILL MONITOR.
[2017-07-26 04:00] VITALS: BP 107/61
[2017-07-26] MEDS: RENAL NOVASOURCE 1,000 ML BOTTLE GT PRN (05:22)
--- NOTE | 2017-07-26 05:31 | NUR ---
RN NOTES HD NURSE AT BEDSIDE, PATIENT STARTED ON HD PER SCHEDULE. PATIENT'S VS CLOSELY MONITORED. PATIENT'S KEPT CLEAN AND DRY. BS CHECKED AND NOTED TO BE 133, PER SLIDING SCALE, NO INSULIN TO BE GIVEN. SAFETY AND COMFORT ENSURED.
[2017-07-26 06:25] LABS: BASOPHILS % (AUTO) 0.6 % (0.0-2.0); EOSINOPHILS # (AUTO) 0.1 /CMM (0.0-0.7); EOSINOPHILS % (AUTO) 2.1 % (0.0-6.0); HEMATOCRIT 27 % (39-51); HEMOGLOBIN 9.3 g/dL (13.5-17.5); LYMPHOCYTES # (AUTO) 0.5 /CMM (0.8-4.8); LYMPHOCYTES % (AUTO) 14.4 % (20.0-44.0); MEAN CORPUSCULAR HEMOGLOBIN 33 PG (26.0-33.0); MEAN CORPUSCULAR HGB CONC 35 g/dl (31.0-36.0); MEAN CORPUSCULAR VOLUME 94 fL (80-96); MONOCYTES # (AUTO) 0.2 /CMM (0.1-1.30); MONOCYTES % (AUTO) 4.4 % (2.0-12.0); NEUTROPHILS # (AUTO) 2.8 /CMM (1.8-8.9); NEUTROPHILS % (AUTO) 78.5 % (43.0-81.0); PLATELET COUNT (AUTO) 57 /CMM (150-450); RDW COEFFICIENT OF VARIATION 20.8 (11.5-15.0); RED BLOOD CELL COUNT(AUTO) 2.85 MIL/uL (4.5-6.0); WHITE BLOOD COUNT (AUTO) 3.6 K/uL (4.3-11.0)
[2017-07-26 06:39] LABS: CALCIUM, SERUM 8.9 mg/dL (8.5-10.1); CREATININE 2.5 mg/dL (0.6-1.3); MAGNESIUM 2.4 mg/dL (1.8-2.4); PHOSPHORUS 2.1 mg/dL (2.5-4.9); POTASSIUM 3.4 mmol/L (3.5-5.1)
--- NOTE | 2017-07-26 06:56 | NUR ---
RN CLOSING NOTES PATIENT WITH NO ACUTE CHANGE IN CONDITION OBSERVED OVERNIGHT. REMAINS SR ON TELE MONITOR. HD ONGOING, ABLE TO TOLERATE WELL AT THIS TIME, BP MARGINAL. INFORMED HD NURSE, [place], OF THE MOST RECENT LAB VALUES RESULTED WITH K=3.4, Ph=2.1. TOLERATED MECH VENT SETTINGS, AIRWAY SUCTIONED PRN AND KEPT PATENT. GTF TOLERATED, FLUSHED AND KEPT PATENT. AM LABS DRAWN. PATIENT'S NEEDS ANTICIPATED AND MET. SAFETY AND COMFORT ENSURED. BED IN LOW AND LOCKED POSITION. PATIENT TURNED AND REPOSITIONED [id number] AND PRN. WILL ENDORSE ACCORDINGLY FOR CONTINUITY OF CARE.
[2017-07-26 08:00] VITALS: BP 87/47
[2017-07-26] MEDS: PANTOPRAZOLE 40 MG/PACK PACK GT SCH ×2 (08:35→17:00)
[2017-07-26] MEDS: GABAPENTIN 100 MG CAPSULE GT SCH ×2 (08:35→21:28)
[2017-07-26] MEDS: ZINC SULFATE 220 MG CAPSULE GT SCH (08:35)
[2017-07-26] MEDS: LEVETIRACETAM SOL (5 ML) 100 MG/ML UDC GT SCH ×2 (08:35→21:29)
[2017-07-26] MEDS: SEVELAMER CARBONATE 0.8 GM POWD.PACK GT SCH ×3 (08:35→21:29)
[2017-07-26] MEDS: glipiZIDE 5 MG TABLET GT SCH ×2 (08:36→17:00)
[2017-07-26] MEDS: Z GUARD REMEDY 2 OZ OINT TP SCH (08:36)
[2017-07-26] MEDS: FOLIC ACID 1 MG TABLET GT SCH (08:36)
[2017-07-26] MEDS: TRAMADOL HCL 50 MG TABLET GT SCH ×2 (08:36→21:28)
[2017-07-26] MEDS: BACITRACIN/POLYMYXIN B 15 GM TUBE TP SCH (08:37)
[2017-07-26] MEDS: HYDROGEL DRESSING 90 GM TUBE TP SCH (08:37)
[2017-07-26] MEDS: VIT B CMPLX 3/FA/VIT C/BIOTIN 1 TAB TABLET GT SCH (08:40)
[2017-07-26 08:54] LABS: EOSINOPHILS % (MANUAL) 5 % (0-4); LYMPHOCYTES % (MANUAL) 19 % (16-48); MONOCYTES % (MANUAL) 6 % (0-11.0); NEUTROPHILS % (MANUAL) 70 (42-76)
[2017-07-26] MEDS: MEROPENEM 500 MG in IV NS 0.9% 50 ML IV SCH ×2 (09:59→21:26)
--- NOTE | 2017-07-26 10:26 | NUR ---
Patient received trached on mechanical vent. Breath sounds equal bilateral. Suctioned small amount thick yellow secretions. Vent plugged into red outlet and alarms set and functioning. Ambu bag at the bed side.
[2017-07-26 12:00] VITALS: BP 85/52
[2017-07-26] MEDS: INSULIN DETEMIR 100 UNIT/ML CARTRIDGE SQ SCH ×3 (12:53→23:48)
[2017-07-26] MEDS: INSULIN REGULAR, HUMAN 100 UNIT/ML 3 ML VIAL SQ PRN ×3 (12:55→23:46)
--- NOTE | 2017-07-26 13:30 | NUR ---
COOLING MEASURES DONE TEMP 99.2 PREVIOUS TEMP 100.5. PER FAMILY HOLDING OFF TYLENOL.
[2017-07-26] MEDS: ACETAMINOPHEN 650 MG/20.3 ML UDC GT PRN (14:47)
--- NOTE | 2017-07-26 15:02 | NUR ---
TEMP 101.1 TYLENOL GIVEN FAMILY AGREED.
[2017-07-26 16:00] VITALS: BP 84/46
--- NOTE | 2017-07-26 19:30 | NUR ---
RN INITIAL NOTES RECEIVED PATIENT IN BED, ASLEEP, NONVERBAL AT BASELINE, BUT ABLE TO NOD YES/NO TO MAKE NEEDS KNOWN, KYRGYZ SPEAKING. TRACH IS MIDLINE AND INTACT, ON MECHANICAL VENTILATOR AT PRESCRIBED SETTINGS, TOLERATING WELL, FREE FROM ANY S/S OF RESPIRATORY DISTRESS. PATIENT ON TELEMETRY MONITORING, REVEALING SINUS RHYTHM. GT PATENT AND INTACT, TOLERATING TUBE FEEDINGS WELL, NO GASTRIC RESIDUALS AT THIS TIME. CRISTINE PICC FLUSHED WITH NS, PATENT WITH GOOD VENOUS RETURN. RIGHT AC #20G ALSO FLUSHED WITH NS, PATENT AND INTACT. NOTED WITH LEFT CHEST WALL HD CATH, DRESSING CLEAN DRY AND INTACT. BED LEFT IN LOWEST AND LOCKED POSITION. CALL LIGHT LEFT WITHIN EASY REACH. PATIENT'S FAMILY MEMBER AT BEDSIDE. PLAN OF CARE DISCUSSED WITH THE PATIENT
[2017-07-26 20:00] VITALS: BP 90/50
[2017-07-26] MEDS: PYRIDOXINE HCL 50 MG TABLET GT SCH (21:29)
[2017-07-27] VITALS: BP 80/42
[2017-07-27] MEDS: MIDODRINE HCL (5MG) 5 MG TABLET GT PRN (01:05)
[2017-07-27 04:00] VITALS: BP 94/51
[2017-07-27] MEDS: BLOOD SUGAR DIAGNOSTIC 1 EACH STRIP IN SCH ×3 (06:20→18:20)
--- NOTE | 2017-07-27 07:00 | NUR ---
RN CLOSING NOTES PATIENT ENDORSED TO THE AM SHIFT NURSE FOR KRYS. NO ACUTE EVENTS OCCURRED THROUGHOUT SHIFT.
--- NOTE | 2017-07-27 07:12 | NUR ---
RN INITIAL NOTES: REC'D PT AWAKE ON BED, A/O X1-2, NOT IN ANY DISTRESS. ON MECH VENT VIA TRACH, SATURATING AT 100%. ON TELEMONITOR, SR W/ HR 70 BPM. HAS PATENT & INTACT GTUBE, ON CONTINUOUS TUBE FEEDING NOVASOURCE 40 CC/HR INFUSING WELL, NO RESIDUAL NOTED UPON CHECKING. HAS CRISTINE PICC LINE, SL, FLUSHED, PATENT & INTACT W/ NO S/SX OF INFECTION/INFILTRATION NOTED. HAS LCW PERMACATH INTACT. PROVIDED COMFORT & SAFETY MEASURES. BED KEPT LOW & IN LOCKED POS. CALL LIGHT PLACED W/IN REACH. WILL CONTINUE TO MONITOR AND ATTEND NEEDS. Addendum: 07/27/17 at 1851 by DEA CÁRDENAS RN CORRECTION: HAS L SUBCLAVIAN HD CATH NOT LCW PERMACATH. HAS R AC G20 SL PATENT & INTACT.
[2017-07-27 07:21] LABS: BASOPHILS % (AUTO) 0.7 % (0.0-2.0); EOSINOPHILS # (AUTO) 0.1 /CMM (0.0-0.7); EOSINOPHILS % (AUTO) 2.5 % (0.0-6.0); HEMATOCRIT 24 % (39-51); HEMOGLOBIN 8.3 g/dL (13.5-17.5); LYMPHOCYTES # (AUTO) 0.7 /CMM (0.8-4.8); LYMPHOCYTES % (AUTO) 14.2 % (20.0-44.0); MEAN CORPUSCULAR HEMOGLOBIN 32 PG (26.0-33.0); MEAN CORPUSCULAR HGB CONC 34 g/dl (31.0-36.0); MEAN CORPUSCULAR VOLUME 95 fL (80-96); MONOCYTES # (AUTO) 0.4 /CMM (0.1-1.30); MONOCYTES % (AUTO) 9.1 % (2.0-12.0); NEUTROPHILS # (AUTO) 3.4 /CMM (1.8-8.9); NEUTROPHILS % (AUTO) 73.5 % (43.0-81.0); PLATELET COUNT (AUTO) 52 /CMM (150-450); RED BLOOD CELL COUNT(AUTO) 2.58 MIL/uL (4.5-6.0); WHITE BLOOD COUNT (AUTO) 4.6 K/uL (4.3-11.0)
[2017-07-27 07:29] LABS: CALCIUM, SERUM 8.7 mg/dL (8.5-10.1); CREATININE 3.7 mg/dL (0.6-1.3); MAGNESIUM 2.5 mg/dL (1.8-2.4); PHOSPHORUS 3.2 mg/dL (2.5-4.9); POTASSIUM 3.4 mmol/L (3.5-5.1)
[2017-07-27 08:00] VITALS: BP 110/54
[2017-07-27] MEDS: FOLIC ACID 1 MG TABLET GT SCH (08:42)
[2017-07-27] MEDS: ZINC SULFATE 220 MG CAPSULE GT SCH (08:42)
[2017-07-27] MEDS: LEVETIRACETAM SOL (5 ML) 100 MG/ML UDC GT SCH ×2 (08:42→21:35)
[2017-07-27] MEDS: PANTOPRAZOLE 40 MG/PACK PACK GT SCH ×2 (08:42→18:20)
[2017-07-27] MEDS: SEVELAMER CARBONATE 0.8 GM POWD.PACK GT SCH ×3 (08:42→21:35)
[2017-07-27] MEDS: VIT B CMPLX 3/FA/VIT C/BIOTIN 1 TAB TABLET GT SCH (08:42)
[2017-07-27] MEDS: GABAPENTIN 100 MG CAPSULE GT SCH ×2 (08:42→21:35)
[2017-07-27] MEDS: TRAMADOL HCL 50 MG TABLET GT SCH ×2 (08:43→21:35)
[2017-07-27] MEDS: HYDROGEL DRESSING 90 GM TUBE TP SCH (08:43)
[2017-07-27] MEDS: Z GUARD REMEDY 2 OZ OINT TP SCH (08:43)
[2017-07-27] MEDS: glipiZIDE 5 MG TABLET GT SCH ×2 (08:43→18:20)
[2017-07-27] MEDS: BACITRACIN/POLYMYXIN B 15 GM TUBE TP SCH (08:44)
[2017-07-27] MEDS: MEROPENEM 500 MG in IV NS 0.9% 50 ML IV SCH ×2 (09:16→21:35)
[2017-07-27] MEDS: RENAL NOVASOURCE 1,000 ML BOTTLE GT PRN (09:18)
[2017-07-27 10:23] LABS: BAND % (MANUAL) 1 % (0.0-5.0); EOSINOPHILS % (MANUAL) 2 % (0-4); LYMPHOCYTES % (MANUAL) 13 % (16-48); MONOCYTES % (MANUAL) 6 % (0-11.0); NEUTROPHILS % (MANUAL) 78 (42-76)
[2017-07-27 12:00] VITALS: BP 109/55
[2017-07-27] MEDS: INSULIN DETEMIR 100 UNIT/ML CARTRIDGE SQ SCH (12:47)
[2017-07-27] MEDS: INSULIN REGULAR, HUMAN 100 UNIT/ML 3 ML VIAL SQ PRN ×2 (12:48→18:22)
[2017-07-27] MEDS: LORAZEPAM INJ 2 MG/ML VIAL IV PRN (14:16)
--- NOTE | 2017-07-27 14:28 | NUR ---
RN NOTES: PT SEEN & EXAMINED BY DR. SCHWARTZ. REMOVED PICC LINE ON CRISTINE D/T INFECTION PER MD ORDERED, PRESSURE DRESSING APPLIED. REMOVED LEFT SUBCLAVIAN HD CATH. CONSENT FOR REMOVAL OF IV LINE ACCESS: CRISTINE PICC LINE AND LEFT SUBCLAVIAN HD CATH SECURED C/O DAUGHTER BERHANE. WAS ABLE TO TALK TO PT'S DAUGHTER VIA PHONE & GOT CONSENT. Addendum: 07/27/17 at 1913 by DEA CÁRDENAS RN ADDENDUM: ASKED DR. SCHWARTZ IF HE WANTED TO REPLACE K 3.4. HE SAID NO NEED AT THIS TIME.
[2017-07-27] MEDS: ACETAMINOPHEN 650 MG/20.3 ML UDC GT PRN (15:14)
--- NOTE | 2017-07-27 15:31 | NUR ---
RN NOTES: TEMP 102.6. DR. SCHWARTZ MADE AWARE, NO NEED TO DO KIDD CULTURES AT THIS TIME. PT WILL BE REFERRED TO INFECTIOUS DOCTOR. UPDATED THAT PT'S DTR CALLED BACK AND AGREED TO REMOVE PICC DARIA AND HD ACCESS. ALSO MADE AWARE THAT PER DTR'S REQUEST TO INSERT HD CATH ON THE SAME SITE.
[2017-07-27 16:00] VITALS: BP 105/56
--- NOTE | 2017-07-27 18:51 | NUR ---
RN CLOSING NOTES: NO ACUTE CHANGES NOTED W/IN SHIFT. PT TOLERATED MECH VENT SETTINGS VIA TRACH, SATURATING AT 100%. ON TELEMONITOR, STILL SR. PEG KEPT PATENT & INTACT, CONTINUOUS TUBE FEEDING NOVASOURCE 40 CC/HR TOLERATED WELL, NO RESIDUAL NOTED W/IN SHIFT. R AC G20, SL, FLUSHED, KEPT PATENT & INTACT W/ NO S/SX OF INFECTION/ INFILTRATION NOTED. JERONIMO OLIVER FOR ID CONSULT MADE AWARE OF T102.6, NO CULTURES ORDERED PER DR. SCHWARTZ. PT SEEN AND EXAMINED BY JERONIMO OLIVER. PT KEPT WELL RESTED. NEEDS ATTENDED. BED KEPT LOW & IN LOCKED POS. CALL LIGHT PLACED W/IN REACH. WILL ENDORSE TO PM RN FOR KRYS.
[2017-07-27] MEDS ORDERED: DOSING PER PHARMACY-AMIKACI IV XX PRN (19:00)
--- NOTE | 2017-07-27 19:20 | NUR ---
RN INITIAL NOTE RECEIVED PT IN NO ACUTE DISTRESS IN BED. PT IS A/O X 1 AND NON VERBAL, BUT ABLE TO OPEN EYES. PT IS BLIND AND COMMUNICATES BY NODDING HEAD. PT IS ON O2 VIA TRACH. TRACH SITE IS CLEAN DRY AND INTACT. PT IS ON MECHANICAL VENT AND IS TOLERATING VENT SETTING WELL. PT IS ON TELE WITH SR ON THE MONITOR. PT HAS GTUBE THAT IS CLEAN DRY INTACT AND PATENT WITH NOVASOURCE @ 40ML/HR. PT HAS L CHEST WALL HD CATH THAT IS CLEAN DRY AND INTACT. PT HAS CRISTINE PICC THAT IS CLEAN DRY INTACT AND PATENT. PT HAS LFA 20G THAT IS CLEAN DRY INTACT AND PATENT. BED IN LOW LOCK POSITION WITH RIALS UP X 2. CALL LIGHT WITHIN REACH AND ALL SAFETY MEASURES ENSURED AND CARRIED OUT.
[2017-07-27 20:00] VITALS: BP 102/53
[2017-07-27] MEDS ORDERED: AMIKACIN 500 MG in IV D5W 100 ML IV ONE (20:00)
[2017-07-27] MEDS: PYRIDOXINE HCL 50 MG TABLET GT SCH (21:35)
[2017-07-28] VITALS (7 sets, daily range): BP systolic 85–123; BP diastolic 43–68
[2017-07-28] MEDS: BLOOD SUGAR DIAGNOSTIC 1 EACH STRIP IN SCH ×4 (00:20→17:51)
[2017-07-28] MEDS: INSULIN DETEMIR 100 UNIT/ML CARTRIDGE SQ SCH ×2 (00:25→12:44)
[2017-07-28] MEDS: INSULIN REGULAR, HUMAN 100 UNIT/ML 3 ML VIAL SQ PRN ×3 (00:25→17:52)
--- NOTE | 2017-07-28 06:26 | NUR ---
RN CLOSING NOTE PT REMAINS IN NO ACUTE DISTRESS IN BED. PT DID NOT HAVE ANY SIGNIFICANT CHANGE IN CONDITION DURING SHIFT. PT TOLERATED VENT SETTING WELL AND TOLERATED FEEDING WELL. ALL NEEDS MET, ALL ORDERS CARRIED OUT. WILL ENDORSE CARE TO AM RN FOR CONTINUITY OF CARE.
--- NOTE | 2017-07-28 07:53 | NUR ---
RN NOTES:( INITIAL) PATIENT RECEIVED IN STABLE CONDITION AWAKE OX1. RESPONSIVE TO VERBAL & TACTILE STIMULI. NODS HEAD & BLINK EYES. ON VENT-TRAC, SETTINGS TOLERATING WELL. ON TELE MONITOR, SINUS RHYTHM. CONTINUE ON TUBE FEEDING ORDERED, TOLERATING WELL. NO RESIDUAL NOTED. IV SITE INTACT, ABLE TO FLUSH WITHOUT DIFFICULTY. SAFETY MEASURES OBSERVED. WILL CONTINUE TO MONITOR.
--- NOTE | 2017-07-28 09:14 | NUR ---
Patient on vent. and vent settings as ordered. Vent plugged into red outlet and alarms set and functioning. Ambu bag at the bed side. Breath sounds equal bilateral. Suctioned as needed.
[2017-07-28] MEDS: LEVETIRACETAM SOL (5 ML) 100 MG/ML UDC GT SCH ×2 (09:43→21:30)
[2017-07-28] MEDS: SEVELAMER CARBONATE 0.8 GM POWD.PACK GT SCH ×3 (09:44→21:30)
[2017-07-28] MEDS: PANTOPRAZOLE 40 MG/PACK PACK GT SCH ×2 (09:44→16:47)
[2017-07-28] MEDS: VIT B CMPLX 3/FA/VIT C/BIOTIN 1 TAB TABLET GT SCH (09:44)
[2017-07-28] MEDS: FOLIC ACID 1 MG TABLET GT SCH (09:44)
[2017-07-28] MEDS: glipiZIDE 5 MG TABLET GT SCH ×2 (09:44→16:47)
[2017-07-28] MEDS: TRAMADOL HCL 50 MG TABLET GT SCH ×2 (09:45→21:30)
[2017-07-28] MEDS: ZINC SULFATE 220 MG CAPSULE GT SCH (09:45)
[2017-07-28] MEDS: GABAPENTIN 100 MG CAPSULE GT SCH ×2 (09:45→21:30)
[2017-07-28] MEDS: MEROPENEM 500 MG in IV NS 0.9% 50 ML IV SCH ×2 (09:48→21:30)
[2017-07-28] MEDS: HYDROGEL DRESSING 90 GM TUBE TP SCH (09:50)
[2017-07-28] MEDS: Z GUARD REMEDY 2 OZ OINT TP SCH (09:50)
[2017-07-28] MEDS: BACITRACIN/POLYMYXIN B 15 GM TUBE TP SCH (09:50)
[2017-07-28] MEDS ORDERED: FEE PK DOSING 1 MIN EA MC ONE (14:15)
[2017-07-28] MEDS: LACTOBACILLUS RHAMNOSUS GG 1 EACH CAP.SPRINK GT SCH (16:47)
--- NOTE | 2017-07-28 17:33 | NUR ---
RN NOTES: 0810: G-TUBE SITE REDNESS NOTED DURING INITIAL ASSESSMENT. CLEANSE WITH NS, PAT DRY, APPLIED BIOPATCH, COVERED WITH DRY GAUZE. G-TUBE SITE REDNESS PICTURE TAKEN & PLACED IN THE CHART, WOUND CONSULT ORDERED. WILL NOTIFIED .
--- NOTE | 2017-07-28 19:20 | NUR ---
RN NOTES RECEIVED PT AWAKE ON BED NON VERBAL. RESPONSIVE TO TACTILE STIMULI. NO ACUTE RESP DISTRESS WITH TRACH PORTEX 8 CONNECTED TO VENT SETTING AC 16 TV 500 FIO2 40% PEEP 0. SATING 98% SR HR 83 ON TELE MONITOR. WITH CLEAR BREATH SOUND. IV SITE ON RAC G20 INTACT AND PATENT. WITH GTF NOVASOURCE @ 40 CC/HR INTACT AND PATENT. AFEBRILE. CONTINUE TO MONITOR FOR ANY S/S OF INFECTION. NO ACTIVE BLEEDING SHOWS. KEPT PT CLEAN AND DRY. REPOSITIONED PT COMFORTABLE. OFFLOADED EXT WITH PILLOWS. WILL CONTINUE TO MONITOR.
[2017-07-28] MEDS: PYRIDOXINE HCL 50 MG TABLET GT SCH (21:30)
[2017-07-29] VITALS: BP 104/57
[2017-07-29] MEDS: BLOOD SUGAR DIAGNOSTIC 1 EACH STRIP IN SCH ×4 (00:23→17:35)
[2017-07-29] MEDS: INSULIN DETEMIR 100 UNIT/ML CARTRIDGE SQ SCH ×2 (00:24→12:00)
[2017-07-29] MEDS: INSULIN REGULAR, HUMAN 100 UNIT/ML 3 ML VIAL SQ PRN (00:25)
[2017-07-29 04:00] VITALS: BP 104/64
--- NOTE | 2017-07-29 06:17 | NUR ---
RN NOTES PATIENT REMAINED IN STABLE CONDITION THROUGHOUT THE SHIFT. TOLERATED TRACH WITH VENT. SATING 99% SINUS RHYTHM HR 75 ON TELE MONITOR.NO SIGNIFICANT CHANGE OF CONDITION. AFEBRILE. VS STABLE. INCONTINENT CARE PROVIDED. NO S/S OF HYPO OR HYPERGLYCEMIA. PT REMAINED CALM. CONTINUE TO MONITOR FOR ANY S/S OF INFECTION. GT SITE STILL RED, GTF INTACT PATENCY CHECKED BUT REDNESS AROUND THE SITE NOTED SINCE YESTERDAY. KEPT PT CLEAN AND DRY. WILL CONTINUE TO MONITOR.
--- NOTE | 2017-07-29 07:15 | NUR ---
RN NOTES RECEIVED PT FROM MEAT BUTCHER, CHRONIC VENT/TRACH DEPENDENT, NONVERBAL. PT ABLE TO NOD AND BLINK TO COMMANDS. TOLERATING VENT SETTINGS, NO SOB OR DISTRESS NOTED. SR ON THE TELE MONITOR HR 75. RAC 20 GAUGE IV SITE DRY AND INTACT, NO IVF. GTUBE FEEDING RUNNING AT 40ML/HR. BED LOCKED AND IN LOWEST POSITION, SIDE RAILS UPX3, CALL LIGHT WITHIN REACH, WILL CONT TO MONITOR.
[2017-07-29 08:00] VITALS: BP 109/45
--- NOTE | 2017-07-29 08:28 | NUR ---
RN NOTES SPOKE TO CHANDU WOUND CARE NURSE REGARDING GTUBE SITE, RED AND BULGING. SPOKE TO DR HERNANDEZ, ACCORDING TO HIM PT GTUBE SITE IS OK FOR USE. WOUND CARE NURSE MADE A CALL TO STELLA SCHWARTZ FOR CONSULT. WILL CONT TO MONITOR. G TUBE FEEDING OFF FOR NOW, AM MEDS HELD WILL FOLLOW UP.
[2017-07-29] MEDS: RENAL NOVASOURCE 1,000 ML BOTTLE GT PRN (08:31)
--- NOTE | 2017-07-29 08:31 | NUR ---
WOUND CARE CONSULT: PT SEEN FOR G TUBE SITE WHICH WAS NOTED TO BE BULGING WITH REDNESS NOTED AROUND G TUBE. RECOMMEND SURGICAL CONSULT/FOLLOWUP. DR STELLA SCHWARTZ NOTIFIED. Marlene Marin MD NOTIFIED BY RN. CONTINUE ALL SKIN PROTECTION MEASURES. Addendum: 07/29/17 at 0833 by CHANDU GONCALVES WNDNU Amended: Links added.
[2017-07-29] MEDS: TRAMADOL HCL 50 MG TABLET GT SCH ×2 (09:00→22:03)
[2017-07-29] MEDS: ZINC SULFATE 220 MG CAPSULE GT SCH (09:00)
[2017-07-29] MEDS: SEVELAMER CARBONATE 0.8 GM POWD.PACK GT SCH ×3 (09:00→22:03)
[2017-07-29] MEDS: LACTOBACILLUS RHAMNOSUS GG 1 EACH CAP.SPRINK GT SCH ×2 (09:00→17:00)
[2017-07-29] MEDS: GABAPENTIN 100 MG CAPSULE GT SCH ×2 (09:00→22:03)
[2017-07-29] MEDS: FOLIC ACID 1 MG TABLET GT SCH (09:00)
[2017-07-29] MEDS: glipiZIDE 5 MG TABLET GT SCH ×2 (09:00→17:00)
[2017-07-29] MEDS: LEVETIRACETAM SOL (5 ML) 100 MG/ML UDC GT SCH ×2 (09:00→22:02)
[2017-07-29] MEDS: BACITRACIN/POLYMYXIN B 15 GM TUBE TP SCH (09:00)
[2017-07-29] MEDS: VIT B CMPLX 3/FA/VIT C/BIOTIN 1 TAB TABLET GT SCH (09:00)
[2017-07-29] MEDS: PANTOPRAZOLE 40 MG/PACK PACK GT SCH ×2 (09:00→17:00)
--- NOTE | 2017-07-29 09:00 | NUR ---
RN NOTES PER DR ARCINIEGA, HOLD GTUBE FEEDING AND MEDS UNTIL WOUND SEES PT.
--- NOTE | 2017-07-29 09:59 | NUR ---
RN NOTES DR JENI SCHWARTZ AT BEDSIDE, AWARE OF GTUBE SITE, PT NOW NPO, DR AWARE PT IS A DIABETIC. PER DR SCHWARTZ HE WILL CALL DR STELLA SCHWARTZ AND DR HERNANDEZ. WILL CONT TO MONITOR.
[2017-07-29] MEDS: Z GUARD REMEDY 2 OZ OINT TP SCH (10:25)
[2017-07-29] MEDS: MEROPENEM 500 MG in IV NS 0.9% 50 ML IV SCH ×2 (10:25→21:35)
[2017-07-29] MEDS: HYDROGEL DRESSING 90 GM TUBE TP SCH (10:26)
[2017-07-29] MEDS: IV D5/ 0.9% NACL 1,000 ML IV PRN (11:18)
[2017-07-29] MEDS: DEXTROSE 50%-WATER 50 ML DISP.SYRIN IV PRN (11:41)
[2017-07-29 12:00] VITALS: BP 114/53
[2017-07-29 16:00] VITALS: BP 118/62
[2017-07-29] MEDS ORDERED: FEE PK DOSING 1 MIN EA MC ONE (16:18)
[2017-07-29] MEDS ORDERED: VANCOMYCIN 1 GM in IV D5W 250 ML IV ONE (16:30)
--- NOTE | 2017-07-29 17:11 | NUR ---
RN NOTES DR HERNANDEZ AT BEDSIDE, LOOKED AT GTUBE. ORDERED XRAY FOR GTUBE. PER IF GTUBE IS IN THE STOMACH MONITOR FOR 24 HRS THEN CONTINUE FEEDING. COVER GTUBE SITE WITH WET TO DRY DRESSING AND GAUZE.
[2017-07-29] MEDS ORDERED: BACITRACIN TP SCH (17:30)
[2017-07-29] MEDS ORDERED: POLYMYXIN B TP SCH (17:30)
[2017-07-29] MEDS ORDERED: DIATR MEGLU/DIATRIZOATE SODIUM 30 ML BOTTLE (GASTROGRAPHIN) ONE (17:35)
--- NOTE | 2017-07-29 18:51 | NUR ---
RN NOTES PT RESTING IN BED NO SOB OR DISTRESS NOTED, TOLERATING VENT SETTINGS. PT CLEANED, TURNED, AND REPOSITIONED. PT STILL NPO, XRAY DONE OF ABDOMEN. GTUBE SITE STILL RED, SWOLLEN, AND LEAKING. ALL MDS AWARE. BED LOCKED AND IN LOWEST POSITION, CALL LIGHT WITHIN REACH, WILL ENDORSE TO ONCOMING SHIFT.
--- NOTE | 2017-07-29 19:10 | NUR ---
RN NOTES RESTING ON BED. RESPONSIVE TO TACTILE STIMULI. NO ACUTE RESP DISTRESS WITH TRACH PORTEX 8 CONNECTED TO VENT SETTING AC 16 TV 500 FIO2 40% PEEP 0. SATING 100% SR HR 73ON TELE MONITOR. WITH RONCHI BREATH SOUND. IV SITE ON RAC G20 INTACT AND PATENT. WITH GTF HELD AT THIS TIME WITH SMALL AMOUNT OF LEAKING SHOWS PATENT WITH GURGLING SOUND HEARD. AFEBRILE. CONTINUE TO MONITOR FOR ANY S/S OF INFECTION. NO ACTIVE BLEEDING SHOWS. KEPT PT CLEAN AND DRY. REPOSITIONED PT COMFORTABLE. OFFLOADED EXT WITH PILLOWS. MONITORED FREQUENTLY.
[2017-07-29 20:00] VITALS: BP 110/54
--- NOTE | 2017-07-29 21:53 | NUR ---
RN NOTES CLARIFIED DR HERNANDEZ THAT THAT PATIENT FEEDING IS HOLD AND IF HE WANTS THE MEDICINE TO HOLD WELL SINCE THE KUB IS IN SATISFACTORY POSITION. PER GI OK TO GIVE MEDICINE AND CONTINUE TO HOLD FEEDING.
[2017-07-29] MEDS: PYRIDOXINE HCL 50 MG TABLET GT SCH (22:03)
[2017-07-30] VITALS (7 sets, daily range): BP systolic 110–138; BP diastolic 51–70
[2017-07-30] MEDS: BLOOD SUGAR DIAGNOSTIC 1 EACH STRIP IN SCH ×4 (00:13→17:17)
[2017-07-30] MEDS: IV D5/ 0.9% NACL 1,000 ML IV PRN ×2 (00:57→13:17)
--- NOTE | 2017-07-30 06:05 | NUR ---
RN NOTES CALLED BERHANE DAUGHTER AND LEFT A MESSAGE THAT WE NEED CONSENT FOR CT ABDOMEN PELVIS WITH CONTRAST. WAITING FOR THE CALL BACK
[2017-07-30 06:46] LABS: BASOPHILS % (AUTO) 1.1 % (0.0-2.0); EOSINOPHILS # (AUTO) 0.1 /CMM (0.0-0.7); EOSINOPHILS % (AUTO) 3.7 % (0.0-6.0); HEMATOCRIT 22 % (39-51); HEMOGLOBIN 7.6 g/dL (13.5-17.5); LYMPHOCYTES # (AUTO) 0.5 /CMM (0.8-4.8); LYMPHOCYTES % (AUTO) 16.3 % (20.0-44.0); MEAN CORPUSCULAR HEMOGLOBIN 33 PG (26.0-33.0); MEAN CORPUSCULAR HGB CONC 36 g/dl (31.0-36.0); MEAN CORPUSCULAR VOLUME 94 fL (80-96); MONOCYTES # (AUTO) 0.2 /CMM (0.1-1.30); MONOCYTES % (AUTO) 5.2 % (2.0-12.0); NEUTROPHILS # (AUTO) 2.5 /CMM (1.8-8.9); NEUTROPHILS % (AUTO) 73.7 % (43.0-81.0); PLATELET COUNT (AUTO) 59 /CMM (150-450); RDW COEFFICIENT OF VARIATION 20.8 (11.5-15.0); WHITE BLOOD COUNT (AUTO) 3.3 K/uL (4.3-11.0)
--- NOTE | 2017-07-30 06:47 | NUR ---
RN NOTES PATIENT STABLE AT THIS TIME. AFEBRILE. NO FACIAL COMPLAINED OF PAIN. INCONTINENT CARE RENDERED. NO ASE NOTED FROM ATB. GTF STILL HELD FOR PROCEDURE AND MONITORING. IVF D5NS @ 75 CC/HR RUNNING CONTINUOUSLY. VS STABLE. ALL DUE MEDICINE TOLERATED WELL VIA GT NO LEAKING NOTED. PATENCY CHECKED INTACT AND PATENT. REDNESS AROUND THE SITE STILL NOTED. KEPT PT CLEAN AND COMFORTABLE IN BED. WOUND DRESSING CHANGED. OFFLOADED EXT WITH PILLOWS. KEPT CLEAN AND DRY WILL ENDORSED CONTINUITY OF CARE TO AM NURSE.
[2017-07-30 07:13] LABS: CREATININE 5.3 mg/dL (0.6-1.3); POTASSIUM 4.8 mmol/L (3.5-5.1)
--- NOTE | 2017-07-30 07:29 | NUR ---
RN NOTES BERHANE DAUGHTER CALLED BACK AND GIVE CONSENT FOR ST ABDOMEN /PELVIS WITH CONTRAST WITNESSED BY OTHER JAMIE MARTIN.
--- NOTE | 2017-07-30 07:35 | NUR ---
RN NOTES RECEIVED PT FROM COORDINATING PRODUCER IN STABLE CONDITION. RESTING IN BED, CHRONIC VENT/TRACH DEPENDENT, NONVERBAL, TOLERATING VENT SETTINGS. ABLE TO OPEN EYES TO COMMAND. NO SOB OR DISTRESS NOTED. SR ON THE TELE MONITOR HR 69. GTUBE SITE STILL RED AND SWOLLEN, NO FEEDING AT THE TIME. PER COORDINATING PRODUCER DR MORROW GAVE OK TO USE GTUBE FOR MEDS ONLY. RAC 20 GAUGE IV SITE DRY AND INTACT IVF AT 75ML/HR. CALL LIGHT WITHIN REACH, SIDE RAILS UPX3, BED LOCKED AND IN LOWEST POSITION, WILL CONT TO MONITOR.
[2017-07-30] MEDS: GABAPENTIN 100 MG CAPSULE GT SCH ×2 (08:13→20:57)
[2017-07-30] MEDS: TRAMADOL HCL 50 MG TABLET GT SCH ×3 (08:13→20:57)
[2017-07-30] MEDS: FOLIC ACID 1 MG TABLET GT SCH (08:13)
[2017-07-30] MEDS: LACTOBACILLUS RHAMNOSUS GG 1 EACH CAP.SPRINK GT SCH ×2 (08:13→16:22)
[2017-07-30] MEDS: SEVELAMER CARBONATE 0.8 GM POWD.PACK GT SCH ×3 (08:13→20:57)
[2017-07-30] MEDS: glipiZIDE 5 MG TABLET GT SCH ×2 (08:14→16:24)
[2017-07-30] MEDS: VIT B CMPLX 3/FA/VIT C/BIOTIN 1 TAB TABLET GT SCH (08:14)
[2017-07-30] MEDS: ZINC SULFATE 220 MG CAPSULE GT SCH (08:14)
[2017-07-30] MEDS: PANTOPRAZOLE 40 MG/PACK PACK GT SCH ×2 (08:14→16:22)
[2017-07-30] MEDS: LEVETIRACETAM SOL (5 ML) 100 MG/ML UDC GT SCH ×2 (08:14→20:56)
[2017-07-30] MEDS: HYDROGEL DRESSING 90 GM TUBE TP SCH (08:15)
[2017-07-30] MEDS: Z GUARD REMEDY 2 OZ OINT TP SCH (08:15)
[2017-07-30] MEDS: BACITRACIN/POLYMYXIN B 15 GM TUBE TP SCH ×3 (08:16→16:24)
[2017-07-30 08:21] LABS: PHOSPHORUS 3.3 mg/dL (2.5-4.9)
[2017-07-30 08:50] LABS: BAND % (MANUAL) 1 % (0.0-5.0); EOSINOPHILS % (MANUAL) 1 % (0-4); LYMPHOCYTES % (MANUAL) 22 % (16-48); MONOCYTES % (MANUAL) 7 % (0-11.0); NEUTROPHILS % (MANUAL) 69 (42-76)
--- NOTE | 2017-07-30 09:49 | NUR ---
RN NOTES DR HERNANDEZ AWARE THAT AM MEDS LEAKED OUT OF GTUBE. STOMA ADHESIVE TAPE ORDERED PER MD, AND ORDER TO NOT CONTINUE FEEDING UNTIL PT IS SEEN TOMORROW AM.
[2017-07-30] MEDS: MEROPENEM 500 MG in IV NS 0.9% 50 ML IV SCH ×2 (09:52→21:04)
[2017-07-30] MEDS: DEXTROSE 50%-WATER 50 ML DISP.SYRIN IV PRN (11:08)
[2017-07-30] MEDS: INSULIN DETEMIR 100 UNIT/ML CARTRIDGE SQ SCH ×2 (11:35)
--- NOTE | 2017-07-30 13:00 | NUR ---
RN NOTES PT HAS CT OF ABDOMEN ORDERED WITH CONTRAST, PT CREATININE 5.3, STILL NO HD CATH PLACED, LAST HD WAS 07/26. PER DR HERNANDEZ FOLLOW UP WITH PCP ABOUT CONTRAST. DR SCHWARTZ PAGED WAITING FOR CALL BACK.
--- NOTE | 2017-07-30 14:32 | NUR ---
RN NOTES DR VELA AT BEDSIDE SPOKE WITH RADIOLOGY GAVE THE OK FOR CONTRAST THROUGH GTUBE FOR CT OF ABDOMEN AND PELVIS.
[2017-07-30] MEDS ORDERED: DIATR MEGLU/DIATRIZOATE SODIUM 30 ML BOTTLE (GASTROGRAPHIN) ONE (14:55)
--- NOTE | 2017-07-30 18:40 | NUR ---
RN NOTES PT RESTING IN BED NO SOB OR DISTRESS NOTED, TOLERATING VENT SETTINGS. IVF RUNNING, GTUBE FEEDING STILL BEING HELD PER DR HERNANDEZ. CT OF ABDOMEN COMPLETE. PT CLEANED TURNED, REPOSITIONED, AND SUCTIONED. ALL NEEDS MET. CALL LIGHT WITHIN REACH, BED LOCKED AND IN LOWEST POSITION WILL ENDORSE TO ONCOMING SHIFT.
[2017-07-30] MEDS: PYRIDOXINE HCL 50 MG TABLET GT SCH (21:01)
--- NOTE | 2017-07-30 23:20 | NUR ---
RN NOTES RECEIVED PATIENT AWAKE IN BED, NOTED WITH EYE TRACKING. NON VERBAL. NO RESPIRATORY DISTRESS. BREATHING EVEN AND UNLABORED. VENT SETTING WELL TOLERATED. GTUBE IN PLACE, FEEDING ON HOLD TILL MEDICALLY FEASIBLE TO CONTINUE. NO PHYSICAL MANIFESTATION OF PAIN OR DISCOMFORT. KEPT CLEAN AND DRY. WILL CONTINUE TO MONITOR.
[2017-07-31] VITALS: BP 143/66
[2017-07-31] MEDS: INSULIN REGULAR, HUMAN 100 UNIT/ML 3 ML VIAL SQ PRN (01:23)
--- NOTE | 2017-07-31 01:24 | NUR ---
RN NOTES NON ADMINISTRATION OF LEVEMIR. BS = 99MG/DL
[2017-07-31 04:00] VITALS: BP 135/66
[2017-07-31] MEDS: BLOOD SUGAR DIAGNOSTIC 1 EACH STRIP IN SCH ×4 (06:52→17:30)
--- NOTE | 2017-07-31 07:10 | NUR ---
MECHANICAL DOOR REPAIRER OPENING NOTES RECEIVED PT FROM NIGHTSHIFT NURSE IN STABLE CONDITION. PT IS A/O X2. NO SOB OR SIGNS OF DISTRESS NOTED. BREATHING IS EVEN AND UNLABORED/ PT IS SINUS RHYTHM ON THE TELE MONITOR. IV IS PATENT AND INTACT, INFUSING NS @75CC/HR. PT IS TOLERATING INFUSION WELL. NO REDNESS OR SIGNS OF INFILTRATION NOTED. BED IN LOW LOCKED POSITION, SIDE RAILS UP X3, CALL LIGHT WITHIN REACH. WILL CONTINUE TO MONITOR.
[2017-07-31] MEDS: IV D5/ 0.9% NACL 1,000 ML IV PRN ×2 (07:11→17:48)
--- NOTE | 2017-07-31 07:13 | NUR ---
RN NOTES PATIENT IN BED, NO DISTRESS NOTED. NO PHYSICAL MANIFESTATION OF PAIN OR DISCOMFORT. GTUBE IN PLACE, FEEDING HELD TILL MEDICALLY FEASIBLE TO CONTINUE. NO SIGNIFICANT CHANGE OF CONDITION. WILL ENDORSE TO AM SHIFT FOR CONTINUITY OF CARE.
[2017-07-31 07:14] LABS: EOSINOPHILS # (AUTO) 0.1 /CMM (0.0-0.7); EOSINOPHILS % (AUTO) 3.9 % (0.0-6.0); HEMATOCRIT 22 % (39-51); HEMOGLOBIN 7.5 g/dL (13.5-17.5); LYMPHOCYTES # (AUTO) 0.4 /CMM (0.8-4.8); LYMPHOCYTES % (AUTO) 18.4 % (20.0-44.0); MEAN CORPUSCULAR HEMOGLOBIN 32 PG (26.0-33.0); MEAN CORPUSCULAR HGB CONC 34 g/dl (31.0-36.0); MEAN CORPUSCULAR VOLUME 94 fL (80-96); MONOCYTES # (AUTO) 0.2 /CMM (0.1-1.30); MONOCYTES % (AUTO) 9.4 % (2.0-12.0); NEUTROPHILS # (AUTO) 1.3 /CMM (1.8-8.9); NEUTROPHILS % (AUTO) 67.3 % (43.0-81.0); RDW COEFFICIENT OF VARIATION 21.2 (11.5-15.0); RED BLOOD CELL COUNT(AUTO) 2.32 MIL/uL (4.5-6.0)
[2017-07-31 07:24] LABS: CALCIUM, SERUM 8.7 mg/dL (8.5-10.1); CREATININE 5.7 mg/dL (0.6-1.3); PHOSPHORUS 4.7 mg/dL (2.5-4.9); POTASSIUM 5.2 mmol/L (3.5-5.1)
--- NOTE | 2017-07-31 07:24 | NUR ---
RN NOTES PLATELET COUNT IS CRITICAL 47 REPORTED BY LAB AT THIS TIME. WILL ENDORSE TO AM SHIFT
[2017-07-31 07:28] LABS: PLATELET COUNT (AUTO) 47 /CMM (150-450)
--- NOTE | 2017-07-31 07:56 | NUR ---
RN NOTES CALLED FIELD EDUCATION DIRECTOR SPOKE WITH DR SERRANO, INFORMED MD ABOUT CRITICAL HIGH LAB RESULT OF PTT 47. NO NEW ORDERS, PATIENT IS ON HD PER MD "NO ACTION REQUIRED OF THIS TIME". ENDORSED TO AM SHIFT
[2017-07-31 08:00] VITALS: BP 116/64
[2017-07-31 09:14] LABS: BAND % (MANUAL) 1 % (0.0-5.0); EOSINOPHILS % (MANUAL) 9 % (0-4); LYMPHOCYTES % (MANUAL) 20 % (16-48); MONOCYTES % (MANUAL) 9 % (0-11.0); NEUTROPHILS % (MANUAL) 61 (42-76)
[2017-07-31] MEDS: LEVETIRACETAM SOL (5 ML) 100 MG/ML UDC GT SCH ×2 (09:40→22:00)
[2017-07-31] MEDS: FOLIC ACID 1 MG TABLET GT SCH (09:40)
[2017-07-31] MEDS: LACTOBACILLUS RHAMNOSUS GG 1 EACH CAP.SPRINK GT SCH ×2 (09:40→17:30)
[2017-07-31] MEDS: ZINC SULFATE 220 MG CAPSULE GT SCH (09:40)
[2017-07-31] MEDS: SEVELAMER CARBONATE 0.8 GM POWD.PACK GT SCH ×3 (09:40→22:00)
[2017-07-31] MEDS: PANTOPRAZOLE 40 MG/PACK PACK GT SCH ×2 (09:41→17:30)
[2017-07-31] MEDS: VIT B CMPLX 3/FA/VIT C/BIOTIN 1 TAB TABLET GT SCH (09:41)
[2017-07-31] MEDS: glipiZIDE 5 MG TABLET GT SCH ×2 (09:41→17:30)
[2017-07-31] MEDS: Z GUARD REMEDY 2 OZ OINT TP SCH (09:41)
[2017-07-31] MEDS: TRAMADOL HCL 50 MG TABLET GT SCH ×2 (09:41→22:01)
[2017-07-31] MEDS: GABAPENTIN 100 MG CAPSULE GT SCH ×2 (09:41→22:00)
[2017-07-31] MEDS: BACITRACIN/POLYMYXIN B 15 GM TUBE TP SCH ×3 (09:42→17:31)
[2017-07-31] MEDS: HYDROGEL DRESSING 90 GM TUBE TP SCH (10:02)
[2017-07-31] MEDS: MEROPENEM 500 MG in IV NS 0.9% 50 ML IV SCH ×2 (10:03→22:01)
[2017-07-31 12:00] VITALS: BP 126/57
[2017-07-31] MEDS: INSULIN DETEMIR 100 UNIT/ML CARTRIDGE SQ SCH ×3 (12:00→22:19)
[2017-07-31 16:00] VITALS: BP 106/70
--- NOTE | 2017-07-31 18:22 | NUR ---
FISHER NOTES DR. STELLA SCHWARTZ CALLED AND STATED THAT THE PT WILL HAVE A PERMCATH PLACEMENT TOMORROW AT 0930. NO ORDER HAS BEEN PLACED FOR THE PROCEDURE OF YET. WILL ENDORSE TO NIGHTSHIFT NURSE TO GET CONSENTS ONCE THE ORDER IS IN
--- NOTE | 2017-07-31 18:40 | NUR ---
SUPERVISOR PUMPING CLOSING NOTES PT REMAINS IN STABLE CONDITION. PT WAS KEPT DRY, REPOSITIONED AND TURNED Q 2HRS. GTUBE SITE KEPT CLEAN AND DRY. FEEDING HELD ORDERED BY MD. VENTILATOR SETTINGS REMAIN ORDERED. ALL NEEDS ANTICIPATED FOR AND MET. ALL ORDERS CARRIED OUT ACCORDINGLY. WILL ENDORSE TO NIGHTSHIFT NURSE FOR KRYS
[2017-07-31 20:00] VITALS: BP 128/61
[2017-07-31] MEDS: PYRIDOXINE HCL 50 MG TABLET GT SCH (22:00)
--- NOTE | 2017-07-31 22:20 | NUR ---
RN NOTES BLOOD SUGAR 94MG/DL AT 2200. LEVEMIR 100UNITS NOT ADMINISTERED.
[2017-08-01] VITALS: BP 136/61
[2017-08-01] MEDS: BLOOD SUGAR DIAGNOSTIC 1 EACH STRIP IN SCH ×5 (00:34→23:42)
[2017-08-01 04:00] VITALS: BP 133/59
[2017-08-01] MEDS: IV D5/ 0.9% NACL 1,000 ML IV PRN (07:25)
--- NOTE | 2017-08-01 07:31 | NUR ---
RN CLOSING NOTED IN BED, RESTING COMFORTABLE. NO RESPIRATORY DISTRESS OR SHORTNESS OF BREATH. BREATHING EVEN AND UNLABORED.SCHEDULED FOR PERMA CATH PLACEMENT. NEEDS ATTENDED. NO SIGNIFICANT CHANGE OF CONDITION. WILL ENDORSE TO AM SHIFT FOR CONTINUITY OF CARE
--- NOTE | 2017-08-01 07:33 | NUR ---
RN NOTES RECEIVED PT FROM INTERNAL MEDICINE PHYSICIAN ASSISTANT IN STABLE CONDITION, CHRONIC VENT/TRACH DEPENDENT, NONVERBAL, A&0X1-2. SR ON THE MONITOR HR 68. GTUBE FEEDING STILL ON HOLD. RFA 20G IV SITE DRY AND INTACT IVF RUNNING AT 75ML/HR. BED LOCKED AND IN LOWEST POSITION, CALL LIGHT WITHIN REACH, SIDE RAILS UPX3, WILL CONT TO MONITOR.
[2017-08-01 07:57] LABS: INR 1.04 (0.87-1.13); PROTHROMBIN TIME 10.8 SECS (9.5-12.7)
[2017-08-01 08:00] VITALS: BP 134/63
[2017-08-01 08:07] LABS: BASOPHILS % (AUTO) 0.9 % (0.0-2.0); EOSINOPHILS # (AUTO) 0.1 /CMM (0.0-0.7); EOSINOPHILS % (AUTO) 3.5 % (0.0-6.0); HEMATOCRIT 21 % (39-51); HEMOGLOBIN 7.2 g/dL (13.5-17.5); LYMPHOCYTES # (AUTO) 0.3 /CMM (0.8-4.8); LYMPHOCYTES % (AUTO) 16.9 % (20.0-44.0); MEAN CORPUSCULAR HEMOGLOBIN 32 PG (26.0-33.0); MEAN CORPUSCULAR HGB CONC 34 g/dl (31.0-36.0); MEAN CORPUSCULAR VOLUME 95 fL (80-96); MONOCYTES # (AUTO) 0.2 /CMM (0.1-1.30); MONOCYTES % (AUTO) 10.5 % (2.0-12.0); NEUTROPHILS # (AUTO) 1.4 /CMM (1.8-8.9); NEUTROPHILS % (AUTO) 68.2 % (43.0-81.0); RDW COEFFICIENT OF VARIATION 20.7 (11.5-15.0); RED BLOOD CELL COUNT(AUTO) 2.25 MIL/uL (4.5-6.0)
[2017-08-01 08:22] LABS: PLATELET COUNT (AUTO) 45 /CMM (150-450)
[2017-08-01 08:25] LABS: BAND % (MANUAL) 4 % (0.0-5.0); EOSINOPHILS % (MANUAL) 4 % (0-4); LYMPHOCYTES % (MANUAL) 18 % (16-48); MONOCYTES % (MANUAL) 8 % (0-11.0); NEUTROPHILS % (MANUAL) 66 (42-76)
[2017-08-01 08:30] LABS: CALCIUM, SERUM 8.7 mg/dL (8.5-10.1); CREATININE 6.3 mg/dL (0.6-1.3); MAGNESIUM 2.9 mg/dL (1.8-2.4); PHOSPHORUS 5.7 mg/dL (2.5-4.9); POTASSIUM 5.2 mmol/L (3.5-5.1)
--- NOTE | 2017-08-01 08:45 | NUR ---
RN NOTES CRITICAL LAB RESULT PLT 45, DR SPICER GROUP PAGED. DR ARCINIEGA NOTIFIED, OR NOTIFIED, NO FURTHER ORDERS.
[2017-08-01] MEDS: glipiZIDE 5 MG TABLET GT SCH ×2 (09:00→16:28)
[2017-08-01] MEDS: BACITRACIN/POLYMYXIN B 15 GM TUBE TP SCH ×3 (09:00→16:28)
--- NOTE | 2017-08-01 09:00 | NUR ---
RN NOTES PT WILL BE GOING TO OR FOR HD CATH PLACEMENT, AM MEDS HELD UNTIL AFTER PROCEDURE.
[2017-08-01] MEDS ORDERED: LIDOCAINE 1% INJ 50 ML MDV IJ ONE (09:26)
[2017-08-01] MEDS ORDERED: IOHEXOL 50 ML IV ONE (09:26)
[2017-08-01] MEDS ORDERED: HEPARIN SODIUM, PORCINE 1,000 UNIT/ML VIAL ONE ×3 (09:26→10:03)
[2017-08-01] MEDS ORDERED: MIDAZOLAM HCL 2 MG/2ML VIAL ONE (09:40)
[2017-08-01] MEDS ORDERED: FENTANYL PF 100MCG/2ML AMPUL ONE (09:50)
[2017-08-01] MEDS: LACTOBACILLUS RHAMNOSUS GG 1 EACH CAP.SPRINK GT SCH ×2 (10:54→16:27)
[2017-08-01] MEDS: ZINC SULFATE 220 MG CAPSULE GT SCH (10:54)
[2017-08-01] MEDS: MEROPENEM 500 MG in IV NS 0.9% 50 ML IV SCH ×2 (10:54→22:20)
[2017-08-01] MEDS: LEVETIRACETAM SOL (5 ML) 100 MG/ML UDC GT SCH ×2 (10:54→20:11)
[2017-08-01] MEDS: SEVELAMER CARBONATE 0.8 GM POWD.PACK GT SCH ×3 (10:54→20:11)
[2017-08-01] MEDS: PANTOPRAZOLE 40 MG/PACK PACK GT SCH ×2 (10:55→16:27)
[2017-08-01] MEDS: FOLIC ACID 1 MG TABLET GT SCH (10:55)
[2017-08-01] MEDS: HYDROGEL DRESSING 90 GM TUBE TP SCH (10:55)
[2017-08-01] MEDS: GABAPENTIN 100 MG CAPSULE GT SCH ×2 (10:55→20:12)
[2017-08-01] MEDS: Z GUARD REMEDY 2 OZ OINT TP SCH (10:55)
[2017-08-01] MEDS: TRAMADOL HCL 50 MG TABLET GT SCH ×2 (10:55→20:11)
[2017-08-01] MEDS: VIT B CMPLX 3/FA/VIT C/BIOTIN 1 TAB TABLET GT SCH (10:55)
[2017-08-01 12:00] VITALS: BP 134/63
[2017-08-01] MEDS: INSULIN DETEMIR 100 UNIT/ML CARTRIDGE SQ SCH ×2 (12:00→23:45)
[2017-08-01] MEDS: ACETAMINOPHEN 650 MG/20.3 ML UDC GT PRN (13:07)
[2017-08-01 16:00] VITALS: BP 129/62
--- NOTE | 2017-08-01 18:44 | NUR ---
RN NOTES PT RESTING IN BED SOB OR DISTRESS NOTED TOLERATING VENTING SETTINGS. MILD BLEEDING NOTED ON R SUBCLAVIAN, PRESSURE AND DRESSING APPLIED, CHARGE NURSE NOLVIA AWARE. PER DR HERNANDEZ HOLD FEEDINGS UNTIL TOMORROW MORNING. BED LOCKED AND IN LOWEST POSITION, CALL LIGHT WITHIN REACH, SIDE RAILS UPX3, WILL ENDORSE TO ONCOMING SHIFT.
--- NOTE | 2017-08-01 19:05 | NUR ---
RN OPENING NOTES RECEIVED REPORT FROM KLEBER AYALA. PATIENT A&O X1, NON-VERBAL. RESPONSIVE TO VERBAL & TACTILE STIMULI. TRACH INTACT W/ VENT SETTINGS AC 16, TV 500, FIO2 40%, PEEP 5. NO SOB OR RESPIRATORY DISTRESS NOTED. ON TELE SINUS RHYTHM IN THE 70S. RIGHT FOREARM IV #20 PATENT W/ DRESSING CDI & IVF D5 NS @ 75 ML/HR. G-TUBE INTACT & FLUSHING WELL, CLAMPED @ THIS TIME. SOME LEAKING NOTED. RIGHT SUBCLAVIAN PERMACATH DRESSING INTACT. NO S/S OF PAIN OR DISCOMFORT @ THIS TIME. SAFETY MEASURES IN PLACE W/ SIDE RAILS UP & BED LOCKED IN LOWEST POSITION. WILL CONTINUE TO MONITOR. FAMILY @ BEDSIDE.
[2017-08-01 20:00] VITALS: BP 137/64
[2017-08-01] MEDS: PYRIDOXINE HCL 50 MG TABLET GT SCH (22:19)
[2017-08-02] VITALS (15 sets, daily range): BP systolic 112–139; BP diastolic 52–70
--- NOTE | 2017-08-02 | NUR ---
RN NOTES CAROL HELD D/T LOW BS LEVEL & NPO STATUS.
[2017-08-02] MEDS: IV D5/ 0.9% NACL 1,000 ML IV PRN ×2 (04:07→15:56)
[2017-08-02] MEDS: INSULIN REGULAR, HUMAN 100 UNIT/ML 3 ML VIAL SQ PRN (05:32)
[2017-08-02] MEDS: BLOOD SUGAR DIAGNOSTIC 1 EACH STRIP IN SCH ×3 (05:33→17:19)
--- NOTE | 2017-08-02 06:50 | NUR ---
RN CLOSING NOTES PATIENT SLEPT INTERMITTENTLY THROUGHOUT THE NIGHT. NO ACUTE RESPIRATORY DISTRESS DURING SHIFT, NO SIGNIFICANT CHANGES. G-TUBE STILL LEAKING & RIGHT SUBCLAVIAN PERMACATH STILL W/ SOME BLEEDING NOTED. DRESSINGS CHANGED, KEPT CLEAN & DRY. ALL DUE MEDS GIVEN. WILL ENDORSE KRYS TO AM RN.
[2017-08-02 07:01] LABS: BASOPHILS % (AUTO) 0.5 % (0.0-2.0); EOSINOPHILS # (AUTO) 0.1 /CMM (0.0-0.7); EOSINOPHILS % (AUTO) 3.2 % (0.0-6.0); LYMPHOCYTES # (AUTO) 0.2 /CMM (0.8-4.8); LYMPHOCYTES % (AUTO) 12.2 % (20.0-44.0); MEAN CORPUSCULAR HEMOGLOBIN 32 PG (26.0-33.0); MEAN CORPUSCULAR HGB CONC 34 g/dl (31.0-36.0); MEAN CORPUSCULAR VOLUME 94 fL (80-96); MONOCYTES # (AUTO) 0.1 /CMM (0.1-1.30); MONOCYTES % (AUTO) 7.2 % (2.0-12.0); NEUTROPHILS # (AUTO) 1.5 /CMM (1.8-8.9); NEUTROPHILS % (AUTO) 76.9 % (43.0-81.0); RDW COEFFICIENT OF VARIATION 21.2 (11.5-15.0); RED BLOOD CELL COUNT(AUTO) 2.08 MIL/uL (4.5-6.0)
--- NOTE | 2017-08-02 07:15 | NUR ---
RN NOTES DR SPICER GROUP PAGED FOR CRITICAL LAB RESULTS.
[2017-08-02 07:16] LABS: HEMATOCRIT 19 % (39-51); HEMOGLOBIN 6.6 g/dL (13.5-17.5); PLATELET COUNT (AUTO) 43 /CMM (150-450); WHITE BLOOD COUNT (AUTO) 1.9 K/uL (4.3-11.0)
[2017-08-02 07:24] LABS: CALCIUM, SERUM 8.7 mg/dL (8.5-10.1); CREATININE 6.6 mg/dL (0.6-1.3); POTASSIUM 5.4 mmol/L (3.5-5.1)
--- NOTE | 2017-08-02 07:36 | NUR ---
RN NOTES RECEIVED PT FROM ORNAMENTAL PAINTER IN STABLE CONDITION NO SOB OR DISTRESS NOTED, CHRONIC VENT TRACH DEPENDENT, NONVERBAL A&01-2. R FA 20 GAUGE IV SITE DRY AND INTACT WITH IVF RUNNING AT 75ML/HR. PT STILL NPO EXCEPT MEDS. BED LOCKED AND IN LOWEST POSITION, CALL LIGHT WITHIN REACH, SIDE RAILS X3, WILL CONT TO MONITOR.
--- NOTE | 2017-08-02 08:16 | NUR ---
RN NOTES SPOKE WITH DR CASILLAS, ORDER FOR A REDRAW CBC.
[2017-08-02] MEDS: PANTOPRAZOLE 40 MG/PACK PACK GT SCH ×2 (08:18→16:20)
[2017-08-02] MEDS: FOLIC ACID 1 MG TABLET GT SCH (08:18)
[2017-08-02] MEDS: VIT B CMPLX 3/FA/VIT C/BIOTIN 1 TAB TABLET GT SCH (08:18)
[2017-08-02] MEDS: LACTOBACILLUS RHAMNOSUS GG 1 EACH CAP.SPRINK GT SCH ×2 (08:18→16:20)
[2017-08-02] MEDS: SEVELAMER CARBONATE 0.8 GM POWD.PACK GT SCH ×3 (08:18→21:57)
[2017-08-02] MEDS: TRAMADOL HCL 50 MG TABLET GT SCH ×2 (08:18→21:57)
[2017-08-02] MEDS: LEVETIRACETAM SOL (5 ML) 100 MG/ML UDC GT SCH ×2 (08:18→21:57)
[2017-08-02] MEDS: Z GUARD REMEDY 2 OZ OINT TP SCH (08:19)
[2017-08-02] MEDS: ZINC SULFATE 220 MG CAPSULE GT SCH (08:19)
[2017-08-02] MEDS: GABAPENTIN 100 MG CAPSULE GT SCH ×2 (08:19→21:57)
[2017-08-02] MEDS: HYDROGEL DRESSING 90 GM TUBE TP SCH (08:19)
[2017-08-02] MEDS: BACITRACIN/POLYMYXIN B 15 GM TUBE TP SCH ×3 (08:20→16:21)
[2017-08-02] MEDS: glipiZIDE 5 MG TABLET GT SCH ×2 (08:24→16:22)
[2017-08-02 08:55] LABS: EOSINOPHILS % (MANUAL) 1 % (0-4); LYMPHOCYTES % (MANUAL) 12 % (16-48); MONOCYTES % (MANUAL) 7 % (0-11.0); NEUTROPHILS % (MANUAL) 80 (42-76)
[2017-08-02 09:41] LABS: BASOPHILS % (AUTO) 0.7 % (0.0-2.0); EOSINOPHILS # (AUTO) 0.1 /CMM (0.0-0.7); EOSINOPHILS % (AUTO) 3.5 % (0.0-6.0); HEMATOCRIT 21 % (39-51); LYMPHOCYTES # (AUTO) 0.3 /CMM (0.8-4.8); LYMPHOCYTES % (AUTO) 12.4 % (20.0-44.0); MEAN CORPUSCULAR HEMOGLOBIN 32 PG (26.0-33.0); MEAN CORPUSCULAR HGB CONC 34 g/dl (31.0-36.0); MEAN CORPUSCULAR VOLUME 95 fL (80-96); MONOCYTES # (AUTO) 0.2 /CMM (0.1-1.30); MONOCYTES % (AUTO) 9.8 % (2.0-12.0); NEUTROPHILS # (AUTO) 1.5 /CMM (1.8-8.9); NEUTROPHILS % (AUTO) 73.6 % (43.0-81.0); RDW COEFFICIENT OF VARIATION 21.6 (11.5-15.0); RED BLOOD CELL COUNT(AUTO) 2.18 MIL/uL (4.5-6.0); WHITE BLOOD COUNT (AUTO) 2.1 K/uL (4.3-11.0)
[2017-08-02 09:47] LABS: PLATELET COUNT (AUTO) 43 /CMM (150-450)
--- NOTE | 2017-08-02 10:00 | NUR ---
RN NOTES DR CASILLAS AWARE OF RESULTS AFTER REDRAW, WBC 2.1, HEMOGLOBIN 7, PLT 43. PER MD NO BLOOD TRANSFUSION FOR NOW, JUST PLT.
[2017-08-02] MEDS: MEROPENEM 500 MG in IV NS 0.9% 50 ML IV SCH ×2 (10:18→21:56)
[2017-08-02] MEDS: INSULIN DETEMIR 100 UNIT/ML CARTRIDGE SQ SCH (11:21)
--- NOTE | 2017-08-02 13:00 | NUR ---
RN NOTES HD COMPLETE, PT TOLERATED WELL, 1L OUT. WAITING FOR PLATELETS TO BE READY FROM BLOOD BANK.
[2017-08-02] MEDS: ACETAMINOPHEN 650 MG/20.3 ML UDC GT PRN (16:24)
--- NOTE | 2017-08-02 18:30 | NUR ---
RN NOTES PT RESTING IN BED NO DISTRESS NOTED. HD CATH STILL OOZING PRESSURE AND EXTRA DRESSING APPLIED, MD AWARE. 1 UNIT OF PLATELET TRANSFUSING. TOLERATING VENT SETTINGS. PT STILL NPO, PER DR HERNANDEZ WAITING FOR GTUBE TO HEAL MORE. NO SIGNIFICANT CHANGES THROUGHOUT MY SHIFT. BED LOCKED AND IN LOWEST POSITION, CALL LIGHT WITHIN REACH, WILL ENDORSE TO ONCOMING SHIFT.
--- NOTE | 2017-08-02 20:00 | NUR ---
RN NOTE PT IN BED WITH EYES OPEN A/O X 1 NON VERBAL, TOGOLESE SPEAKING. ON TRACH/VENT TOLERATING THE SETTINGS WELL. NO DISTRESS OR DISCOMFORT NOTED. NO S/S OF PAIN NOTED. RFA # 20 WITH PLT INFUSING AT THIS TIME 100 ML/HR, NO S/S OF INFILTRATION NOTED. ON TELE SR HR 78. REPOSITION HIM FOR SKIN MANAGEMENT. KEPT HIM DRY AND CLEAN. GT CLAMPED. RT SUBCLAVIAN PERMACATH WITH DRESSING ON. PT IS NPO. SIDE RAILS UP X 3 AND CALL LIGHT WITHIN REACH. VSS. CONTINUE TO MONITOR HIM.
[2017-08-02] MEDS: PYRIDOXINE HCL 50 MG TABLET GT SCH (21:57)
[2017-08-03] VITALS (8 sets, daily range): BP systolic 81–136; BP diastolic 34–84
[2017-08-03] MEDS: BLOOD SUGAR DIAGNOSTIC 1 EACH STRIP IN SCH ×5 (05:56→23:56)
[2017-08-03] MEDS: IV D5/ 0.9% NACL 1,000 ML IV PRN ×2 (06:08→21:31)
--- NOTE | 2017-08-03 06:26 | NUR ---
RN NOTE PT IN BED AWAKE. NO DISTRESS OR DISCOMFORT NOTED. NO S/S OF PAIN NOTED. TOLERATING VENT SETTINGS, SUCTIONED HIM PRN DURING THE SHIFT, SMALL AMOUNT OF WHITISH SECRETIONS NOTED. ON TELE SR HR 96. PT REMAIN NPO. SIDE RAILS UP X 3 AND CALL LIGHT WITHIN REACH. WILL ENDORSE TO DAYS SHIFT NURSE FOR CONTINUE TO CARE.
--- NOTE | 2017-08-03 06:28 | NUR ---
RN NOTE ON TELE SR 96. GT SITE LEAKING, ALSO RT SUBCLAVIAN PERMCATH SITE BLEEDING. PRESSURE DRESSING ON. WILL ENDORSE TO DAY SHIFT NURSE FOR CONTINUE TO CARE.
[2017-08-03 07:24] LABS: BASOPHILS % (AUTO) 0.3 % (0.0-2.0); EOSINOPHILS % (AUTO) 0.7 % (0.0-6.0); LYMPHOCYTES # (AUTO) 0.1 /CMM (0.8-4.8); LYMPHOCYTES % (AUTO) 4.7 % (20.0-44.0); MEAN CORPUSCULAR HEMOGLOBIN 32 PG (26.0-33.0); MEAN CORPUSCULAR HGB CONC 33 g/dl (31.0-36.0); MEAN CORPUSCULAR VOLUME 96 fL (80-96); MONOCYTES # (AUTO) 0.2 /CMM (0.1-1.30); MONOCYTES % (AUTO) 7.5 % (2.0-12.0); NEUTROPHILS # (AUTO) 2.2 /CMM (1.8-8.9); NEUTROPHILS % (AUTO) 86.8 % (43.0-81.0); RDW COEFFICIENT OF VARIATION 21.8 (11.5-15.0); WHITE BLOOD COUNT (AUTO) 2.6 K/uL (4.3-11.0)
[2017-08-03 07:32] LABS: RED BLOOD CELL COUNT(AUTO) 1.77 MIL/uL (4.5-6.0)
[2017-08-03 07:34] LABS: HEMATOCRIT 17 % (39-51); HEMOGLOBIN 5.7 g/dL (13.5-17.5); PLATELET COUNT (AUTO) 47 /CMM (150-450)
[2017-08-03 07:37] LABS: ALBUMIN 2.3 g/dL (3.4-5.0); BILIRUBIN,TOTAL 0.8 mg/dL (0.2-1.0); CALCIUM, SERUM 8.1 mg/dL (8.5-10.1); CREATININE 5.3 mg/dL (0.6-1.3); MAGNESIUM 2.4 mg/dL (1.8-2.4); PHOSPHORUS 5.7 mg/dL (2.5-4.9); TOTAL PROTEIN, SERUM 6.2 g/dL (6.4-8.2)
--- NOTE | 2017-08-03 08:00 | NUR ---
ICU/RN INITIAL NOTES,AM RECEIVED REPORT FROM NIGHT NURSE. OT OPENS EYES, ALBANIAN SPEAKING ONLY. PT ON VENT SETTINGS ORDERED BY MD, NO ACUTE DISTRESS NOTED AT THIS TIME. PT SINUS ON TELE, 69. PIV PATNET AND INTACT, NO S/S OF INFECTION OR INFILTRATION NOTED, IV FLUIDS INFUSING ORDERED. POSSIBLE HD SCHEDULED FOR THIS AM, WILL FOLLOW UP. WILL CONTINUE TO TURN AND REPOSITION PT Q 2 HOURS AND NEEDED. SKIN/WOUND CARE WILL BE RENDERED. ALL NEEDS WILL BE MET, SAFETY MEASURES TAKEN, BED IN LOW POSITION, SIDE RAILS UP, CALL LIGHT WITHIN REACH. WILL CONTINUE CARE.
[2017-08-03] MEDS: GABAPENTIN 100 MG CAPSULE GT SCH ×2 (10:01→21:27)
[2017-08-03] MEDS: LEVETIRACETAM SOL (5 ML) 100 MG/ML UDC GT SCH ×2 (10:01→21:27)
[2017-08-03] MEDS: PANTOPRAZOLE 40 MG/PACK PACK GT SCH ×2 (10:01→17:17)
[2017-08-03] MEDS: VIT B CMPLX 3/FA/VIT C/BIOTIN 1 TAB TABLET GT SCH (10:01)
[2017-08-03] MEDS: TRAMADOL HCL 50 MG TABLET GT SCH ×2 (10:01→21:27)
[2017-08-03] MEDS: ZINC SULFATE 220 MG CAPSULE GT SCH (10:01)
[2017-08-03] MEDS: SEVELAMER CARBONATE 0.8 GM POWD.PACK GT SCH ×3 (10:01→21:27)
[2017-08-03] MEDS: LACTOBACILLUS RHAMNOSUS GG 1 EACH CAP.SPRINK GT SCH ×2 (10:01→17:17)
[2017-08-03] MEDS: FOLIC ACID 1 MG TABLET GT SCH (10:01)
[2017-08-03] MEDS: glipiZIDE 5 MG TABLET GT SCH ×2 (10:02→17:18)
[2017-08-03] MEDS: MEROPENEM 500 MG in IV NS 0.9% 50 ML IV SCH ×2 (10:02→21:32)
[2017-08-03] MEDS: BACITRACIN/POLYMYXIN B 15 GM TUBE TP SCH ×3 (10:05→17:18)
[2017-08-03] MEDS: HYDROGEL DRESSING 90 GM TUBE TP SCH (10:06)
[2017-08-03] MEDS: Z GUARD REMEDY 2 OZ OINT TP SCH (10:07)
[2017-08-03 11:17] LABS: BAND % (MANUAL) 2 % (0.0-5.0); LYMPHOCYTES % (MANUAL) 4 % (16-48); MONOCYTES % (MANUAL) 1 % (0-11.0); NEUTROPHILS % (MANUAL) 93 (42-76)
[2017-08-03] MEDS: INSULIN DETEMIR 100 UNIT/ML CARTRIDGE SQ SCH ×3 (12:00→23:56)
[2017-08-03] MEDS: INSULIN REGULAR, HUMAN 100 UNIT/ML 3 ML VIAL SQ PRN (12:55)
[2017-08-03] MEDS ORDERED: VANCOMYCIN 1 GM in IV D5W 250 ML IV ONE (15:00)
--- NOTE | 2017-08-03 15:00 | NUR ---
ICU/RN: HEMODIALYSIS STARTED. VSS, WILL CONTINUE TO MONITOR AND ASSESS
--- NOTE | 2017-08-03 15:18 | NUR ---
ICU/RN: BLOOD TRANSFUSION STARTED WITH H.D. VSS, WILL CONTINUE TO MONITOR
--- NOTE | 2017-08-03 16:20 | NUR ---
TD/RN: BLOOD TRANSFUSION COMPLETE, TOLERATED WELL. VSS. NO S/S OF ADVERSE REACTIONS NOTED. HD STILL IN PROCESS, TOLERATING WELL.
--- NOTE | 2017-08-03 19:29 | NUR ---
ICU/RN ENDING NOTES,AM REPORT ENDORSED TO NIGHT NURSE FOR CONTINUATION OF CARE. ALL NEEDS MET, SAFETY MEASURES TAKEN. HD DONE TODAY, 1.3L OUT. VANCO POST H.D ADMINISTERED. AMIKACIN LEVEL STILL PENDING. ENDORSED TO NIGHT NURSE TO FOLLOW UP WITH LEVEL AND IF APPROPRIATE ADMIN AMIKACIN. ALL NEEDS MET, SAFETY MEASURES TAKEN, BED IN LOW POSITION, SIDE RAILS UP, CALL LIGHT WITHIN REACH. WILL CONTINUE CARE. FAMILY UPDATED WITH PT CONDITION. WILL CONTINUE CARE.
[2017-08-03 19:51] LABS: BASOPHILS % (AUTO) 0.7 % (0.0-2.0); EOSINOPHILS # (AUTO) 0.1 /CMM (0.0-0.7); HEMATOCRIT 22 % (39-51); HEMOGLOBIN 7.3 g/dL (13.5-17.5); LYMPHOCYTES # (AUTO) 0.4 /CMM (0.8-4.8); LYMPHOCYTES % (AUTO) 14.6 % (20.0-44.0); MEAN CORPUSCULAR HEMOGLOBIN 31 PG (26.0-33.0); MEAN CORPUSCULAR HGB CONC 33 g/dl (31.0-36.0); MEAN CORPUSCULAR VOLUME 93 fL (80-96); MONOCYTES # (AUTO) 0.3 /CMM (0.1-1.30); MONOCYTES % (AUTO) 12.5 % (2.0-12.0); NEUTROPHILS % (AUTO) 69.2 % (43.0-81.0); RDW COEFFICIENT OF VARIATION 19.9 (11.5-15.0); RED BLOOD CELL COUNT(AUTO) 2.37 MIL/uL (4.5-6.0); WHITE BLOOD COUNT (AUTO) 2.8 K/uL (4.3-11.0)
[2017-08-03 19:57] LABS: PLATELET COUNT (AUTO) 47 /CMM (150-450)
--- NOTE | 2017-08-03 20:00 | NUR ---
RN NOTE PT IN BED WITH EYES OPEN, A/O X 1, NON VERBAL USES FACIAL EXPRESSION FOR COMMUNICATION. ON TRACH/VENT TOLERATING SETTINGS WELL. KEPT HOB ELEVATED. PT IS REMAIN NPO. IVF D5NS @ 75 ML/HR INFUSING WELL, NO S/S OF INFILTRATION NOTED. PT HAS SWELLING ALL EXT'S. KEPT THEM ELEVATED. GT IS CLAMPED. GT SITE IS LEAKING DRESSING CHANGED. RT SUBCLAVIAN PERMCATH HAS PRESSURE DRESSING DUE TO BLEEDING. VSS. REPOSITION HIM FOR SKIN MANAGEMENT. DRESSING ON WOUNDS I/D/C. KEPT HIM DRY AND CLEAN. ALL NEEDS ATTENDED. SIDE RAILS UP X3 AND CALL LIGHT WITHIN REACH. CONTINUE TO MONITOR HIM. Addendum: 08/03/17 at 210 by MICHELA BECERRA RN ON TELE SR HR 68.
[2017-08-03] MEDS: PYRIDOXINE HCL 50 MG TABLET GT SCH (21:27)
[2017-08-03 21:50] LABS: NEUTROPHILS % (MANUAL) 65 (42-76)
[2017-08-03 21:51] LABS: BAND % (MANUAL) 2 % (0.0-5.0); EOSINOPHILS % (MANUAL) 4 % (0-4); LYMPHOCYTES % (MANUAL) 23 % (16-48); MONOCYTES % (MANUAL) 6 % (0-11.0)
[2017-08-03] MEDS ORDERED: AMIKACIN 250 MG/ML VIAL ONE (23:58)
[2017-08-04] VITALS: BP 146/66
[2017-08-04] MEDS: AMIKACIN 500 MG in IV D5W 100 ML IV PRN (00:06)
[2017-08-04 04:02] VITALS: BP 150/65
[2017-08-04] MEDS: BLOOD SUGAR DIAGNOSTIC 1 EACH STRIP IN SCH ×3 (05:38→17:20)
--- NOTE | 2017-08-04 06:31 | NUR ---
RN NOTE PT IN BED ASLEEP, AROUASABLE. NO DISTRESS OR DISCOMFORT NOTED. NO S/S OF PAIN NOTED. TOLERATING VENT SETTINGS. IVF D5NS @ 75 ML/HR, NO S/S OF INFILTRATION NOTED. ON TELE SR 64. SIDE RAILS UP X 3 AND CALL LIGHT WITHIN REACH. WILL ENDORSE TO DAY SHIFT NURSE FOR CONTINUE TO CARE.
--- NOTE | 2017-08-04 07:29 | NUR ---
RN NOTES RECEIVED PT FROM [employer]ENT IN STABLE CONDITION, CHRONIC VENT/TRACH DEPENDENT, A&0X1. TOLERATING VENT SETTINGS NO SOB OR DISTRESS NOTED. SR ON THE TELE MONITOR HR 65. NPO DUE TO GTUBE LEAK. RFA 20 GAUGE IV SITE DRY AND INTACT WITH IVF RUNNING AT 75ML/HR. R SUBCLAVIAN PERMACATH WITH MILD BLEEDING NOTED, PRESSURE APPLIED. BED LOCKED AND IN LOWEST POSITION, CALL LIGHT WITHIN REACH, SIDE RAILS UPX3 WILL CONT TO MONITOR.
[2017-08-04 07:35] LABS: BASOPHILS % (AUTO) 0.5 % (0.0-2.0); EOSINOPHILS # (AUTO) 0.1 /CMM (0.0-0.7); EOSINOPHILS % (AUTO) 3.1 % (0.0-6.0); HEMATOCRIT 23 % (39-51); HEMOGLOBIN 7.7 g/dL (13.5-17.5); LYMPHOCYTES # (AUTO) 0.4 /CMM (0.8-4.8); LYMPHOCYTES % (AUTO) 14.4 % (20.0-44.0); MEAN CORPUSCULAR HEMOGLOBIN 32 PG (26.0-33.0); MEAN CORPUSCULAR HGB CONC 34 g/dl (31.0-36.0); MEAN CORPUSCULAR VOLUME 93 fL (80-96); MONOCYTES # (AUTO) 0.3 /CMM (0.1-1.30); MONOCYTES % (AUTO) 9.9 % (2.0-12.0); NEUTROPHILS # (AUTO) 1.8 /CMM (1.8-8.9); NEUTROPHILS % (AUTO) 72.1 % (43.0-81.0); RDW COEFFICIENT OF VARIATION 21.8 (11.5-15.0); RED BLOOD CELL COUNT(AUTO) 2.44 MIL/uL (4.5-6.0); WHITE BLOOD COUNT (AUTO) 2.6 K/uL (4.3-11.0)
[2017-08-04 07:44] LABS: PLATELET COUNT (AUTO) 45 /CMM (150-450)
[2017-08-04 07:57] LABS: ALBUMIN 2.3 g/dL (3.4-5.0); BILIRUBIN,TOTAL 0.8 mg/dL (0.2-1.0); CALCIUM, SERUM 8.2 mg/dL (8.5-10.1); CREATININE 4.7 mg/dL (0.6-1.3); MAGNESIUM 2.2 mg/dL (1.8-2.4); PHOSPHORUS 4.9 mg/dL (2.5-4.9); POTASSIUM 3.3 mmol/L (3.5-5.1); TOTAL PROTEIN, SERUM 6.2 g/dL (6.4-8.2)
[2017-08-04 08:00] VITALS: BP 139/56
[2017-08-04 08:27] LABS: BAND % (MANUAL) 3 % (0.0-5.0); EOSINOPHILS % (MANUAL) 3 % (0-4); LYMPHOCYTES % (MANUAL) 15 % (16-48); MONOCYTES % (MANUAL) 5 % (0-11.0); NEUTROPHILS % (MANUAL) 74 (42-76)
[2017-08-04] MEDS: PANTOPRAZOLE 40 MG/PACK PACK GT SCH ×2 (08:42→16:41)
[2017-08-04] MEDS: GABAPENTIN 100 MG CAPSULE GT SCH ×2 (08:42→21:18)
[2017-08-04] MEDS: ZINC SULFATE 220 MG CAPSULE GT SCH (08:43)
[2017-08-04] MEDS: FOLIC ACID 1 MG TABLET GT SCH (08:43)
[2017-08-04] MEDS: LACTOBACILLUS RHAMNOSUS GG 1 EACH CAP.SPRINK GT SCH ×2 (08:43→16:41)
[2017-08-04] MEDS: LEVETIRACETAM SOL (5 ML) 100 MG/ML UDC GT SCH ×2 (08:43→21:18)
[2017-08-04] MEDS: TRAMADOL HCL 50 MG TABLET GT SCH ×2 (08:43→21:19)
[2017-08-04] MEDS: VIT B CMPLX 3/FA/VIT C/BIOTIN 1 TAB TABLET GT SCH (08:43)
[2017-08-04] MEDS: glipiZIDE 5 MG TABLET GT SCH ×2 (08:43→16:41)
[2017-08-04] MEDS: SEVELAMER CARBONATE 0.8 GM POWD.PACK GT SCH ×3 (08:44→21:18)
[2017-08-04] MEDS: HYDROGEL DRESSING 90 GM TUBE TP SCH (08:44)
[2017-08-04] MEDS: Z GUARD REMEDY 2 OZ OINT TP SCH (08:44)
[2017-08-04] MEDS: BACITRACIN/POLYMYXIN B 15 GM TUBE TP SCH ×3 (08:45→16:42)
[2017-08-04] MEDS: MEROPENEM 500 MG in IV NS 0.9% 50 ML IV SCH ×2 (10:28→21:18)
[2017-08-04] MEDS: IV D5/ 0.9% NACL 1,000 ML IV PRN (10:41)
--- NOTE | 2017-08-04 10:53 | NUR ---
RN NOTES PER DR HERNANDEZ KEEP GTUBE OPEN TO AIR, NO MORE DRESSING, APPLY POLYSPORIN, WILL SEE PT SETH TO DECIDE IF GTUBE FEEDING SHOULD BE RESUMED.
[2017-08-04 12:00] VITALS: BP 139/59
[2017-08-04] MEDS: INSULIN DETEMIR 100 UNIT/ML CARTRIDGE SQ SCH (12:00)
[2017-08-04 16:00] VITALS: BP 139/65
--- NOTE | 2017-08-04 18:20 | NUR ---
RN NOTES PT RESTING IN BED TOLERATING VENT SETTINGS. NO SOB OR DISTRESS NOTED. PT IN STABLE CONDITION THROUGHOUT THE SHIFT, NO SIGNIFICANT CHANGES NOTED. GTUBE SITE STILL BEING MONITORED FOR LEAKING. PT CLEANED, TURNED, REPOSITIONED, AND WOUND DRESSING CHANGED. BED LOCKED AND IN LOWEST POSITION, CALL LIGHT WITHIN REACH, SIDE RAILS UPX3, WILL ENDORSE TO ONCOMING SHIFT.
[2017-08-04 20:00] VITALS: BP 146/68
[2017-08-04] MEDS: PYRIDOXINE HCL 50 MG TABLET GT SCH (21:19)
[2017-08-05] VITALS: BP 103/64
[2017-08-05] MEDS: BLOOD SUGAR DIAGNOSTIC 1 EACH STRIP IN SCH ×4 (00:35→17:41)
[2017-08-05] MEDS: IV D5/ 0.9% NACL 1,000 ML IV PRN ×2 (02:15→15:00)
[2017-08-05 04:00] VITALS: BP 145/72
--- NOTE | 2017-08-05 06:30 | NUR ---
RN NOTE PT IN BED AWAKE. NO DISTRESS OR DISCOMFORT NOTED. NO S/S OF PAIN NOTED. TOLERATING VENT SETTINGS, SUCTIONED HIM PRN DURING THE SHIFT, SMALL AMOUNT OF WHITISH SECRETIONS NOTED. ON TELE SR HR 66. PT CONTINUE TO BE NPO. REPOSITION HIM Q2H, KEPT HIM DRY AND CLEAN. SIDE RAILS UP X 3 AND CALL LIGHT WITHIN REACH. WILL ENDORSE TO DAYS SHIFT NURSE FOR CONTINUE TO CARE.
[2017-08-05 07:03] LABS: BASOPHILS % (AUTO) 0.4 % (0.0-2.0); EOSINOPHILS # (AUTO) 0.1 /CMM (0.0-0.7); EOSINOPHILS % (AUTO) 3.1 % (0.0-6.0); HEMATOCRIT 23 % (39-51); LYMPHOCYTES # (AUTO) 0.3 /CMM (0.8-4.8); MEAN CORPUSCULAR HEMOGLOBIN 32 PG (26.0-33.0); MEAN CORPUSCULAR HGB CONC 34 g/dl (31.0-36.0); MEAN CORPUSCULAR VOLUME 93 fL (80-96); MONOCYTES # (AUTO) 0.2 /CMM (0.1-1.30); MONOCYTES % (AUTO) 8.3 % (2.0-12.0); NEUTROPHILS # (AUTO) 1.9 /CMM (1.8-8.9); NEUTROPHILS % (AUTO) 75.2 % (43.0-81.0); RDW COEFFICIENT OF VARIATION 21.4 (11.5-15.0); RED BLOOD CELL COUNT(AUTO) 2.51 MIL/uL (4.5-6.0); WHITE BLOOD COUNT (AUTO) 2.6 K/uL (4.3-11.0)
[2017-08-05 07:10] LABS: PLATELET COUNT (AUTO) 43 /CMM (150-450)
[2017-08-05 07:22] LABS: CALCIUM, SERUM 8.2 mg/dL (8.5-10.1); CREATININE 5.1 mg/dL (0.6-1.3); MAGNESIUM 2.3 mg/dL (1.8-2.4); PHOSPHORUS 6.1 mg/dL (2.5-4.9); POTASSIUM 3.4 mmol/L (3.5-5.1)
--- NOTE | 2017-08-05 07:34 | NUR ---
RN NOTES RECEIVED PT FROM [employer]CHIT[employer] IN STABLE CONDITION, CHRONIC VENT/TRACH DEPENDENT, NONVERBAL,A&0X1, TOLERATING VENT SETTINGS. SR ON THE TELE MONITOR. PT REMAINS NPO. RFA 20G IV SITE DRY AND INTACT WITH IVF AT 75ML/HR. BED LOCKED AND IN LOWEST POSITION, SIDE RAILS UPX3 WILL CONT TO MONITOR.
[2017-08-05 08:00] VITALS: BP 139/62
[2017-08-05] MEDS: SEVELAMER CARBONATE 0.8 GM POWD.PACK GT SCH ×3 (08:50→20:37)
[2017-08-05] MEDS: LEVETIRACETAM SOL (5 ML) 100 MG/ML UDC GT SCH ×2 (08:50→20:36)
[2017-08-05] MEDS: VIT B CMPLX 3/FA/VIT C/BIOTIN 1 TAB TABLET GT SCH (08:50)
[2017-08-05] MEDS: Z GUARD REMEDY 2 OZ OINT TP SCH (08:51)
[2017-08-05] MEDS: ZINC SULFATE 220 MG CAPSULE GT SCH (08:51)
[2017-08-05] MEDS: LACTOBACILLUS RHAMNOSUS GG 1 EACH CAP.SPRINK GT SCH ×2 (08:51→16:25)
[2017-08-05] MEDS: FOLIC ACID 1 MG TABLET GT SCH (08:51)
[2017-08-05] MEDS: TRAMADOL HCL 50 MG TABLET GT SCH ×2 (08:51→20:36)
[2017-08-05] MEDS: GABAPENTIN 100 MG CAPSULE GT SCH ×2 (08:51→20:36)
[2017-08-05] MEDS: glipiZIDE 5 MG TABLET GT SCH ×2 (08:51→16:26)
[2017-08-05] MEDS: PANTOPRAZOLE 40 MG/PACK PACK GT SCH ×2 (08:51→16:25)
[2017-08-05] MEDS: HYDROGEL DRESSING 90 GM TUBE TP SCH (08:52)
[2017-08-05] MEDS: BACITRACIN/POLYMYXIN B 15 GM TUBE TP SCH ×3 (08:52→16:26)
[2017-08-05 08:56] LABS: BAND % (MANUAL) 1 % (0.0-5.0); EOSINOPHILS % (MANUAL) 2 % (0-4); LYMPHOCYTES % (MANUAL) 6 % (16-48); MONOCYTES % (MANUAL) 5 % (0-11.0); NEUTROPHILS % (MANUAL) 86 (42-76)
--- NOTE | 2017-08-05 09:30 | NUR ---
WOUND CARE FOLLOW UP: PT SEEN FOR LEFT EAR WOUND WHICH IS NOW HEALED. DISCUSSED SKIN PROTECTION WITH NURSING STAFF. WILL SEE PRN. Addendum: 08/05/17 at 0931 by CHANDU GONCALVES [id number] Amended: Links added.
[2017-08-05] MEDS: MEROPENEM 500 MG in IV NS 0.9% 50 ML IV SCH ×2 (09:55→22:24)
--- NOTE | 2017-08-05 10:37 | NUR ---
RN NOTES DR VELA AWARE OF PLT 43. NO NEW ORDERS.
[2017-08-05] MEDS: INSULIN DETEMIR 100 UNIT/ML CARTRIDGE SQ SCH ×2 (11:59)
[2017-08-05 12:00] VITALS: BP 154/67
--- NOTE | 2017-08-05 14:49 | NUR ---
RN NOTES PT TOLERATED HD WELL, 1L OUT.
[2017-08-05 16:00] VITALS: BP 149/68
--- NOTE | 2017-08-05 18:00 | NUR ---
RN NOTES DR HERNANDEZ AT BEDSIDE, OK TO START GTUBE FEEDING TOMORROW AM RATE OF 20ML/HR. GRADUALLY INCREASE IF PT IS TOLERATING. WILL ENDORSE TO [employer] ROUTER.
--- NOTE | 2017-08-05 18:27 | NUR ---
RN NOTES PT RESTING IN VENT TOLERATING VENT SETTINGS NO SOB OR DISTRESS NOTED. NO SIGNIFICANT CHANGES THROUGHOUT THE SHIFT, PT REMAINED IN STABLE CONDITION. GTUBE FEEDING TO BE RESUMED IN THE AM. BED LOCKED AND IN LOWEST POSITION, SIDE RAILS UPX3, WILL ENDORSE TO ONCOMING SHIFT.
--- NOTE | 2017-08-05 19:15 | NUR ---
RN NOTES RECEIVED PT RESTING ON BED RESPONSE TO TACTILE STIMULI. NO ACUTE RESP DISTRESS WITH TRACH PORTEX 8 CONNECTED TO VENT SETTING AC 16 TV 500 FIO2 40% PEEP 0. SATING 99%% SR HR 72 ON TELE MONITOR. CLEAR BREATH SOUND. IV SITE ON RAC G20 INTACT AND PATENT RUNNING WITH D5W @ 75 CC/HR. GTF STILL HELD. GT SITE WITH SMALL AMOUNT OF PUSSY DISCHARGE. AFEBRILE. CONTINUE TO MONITOR FOR ANY S/S OF INFECTION. NO ACTIVE BLEEDING SHOWS. KEPT PT CLEAN AND DRY. REPOSITIONED PT COMFORTABLE. OFFLOADED EXT WITH PILLOWS. WILL CONTINUE TO MONITOR.
[2017-08-05 20:00] VITALS: BP 149/62
[2017-08-05] MEDS: PYRIDOXINE HCL 50 MG TABLET GT SCH (22:24)
[2017-08-06] VITALS: BP 160/70
[2017-08-06] MEDS: BLOOD SUGAR DIAGNOSTIC 1 EACH STRIP IN SCH ×5 (00:58→23:45)
[2017-08-06 04:00] VITALS: BP 163/67
[2017-08-06] MEDS: IV D5/ 0.9% NACL 1,000 ML IV PRN ×2 (06:11→23:54)
--- NOTE | 2017-08-06 07:10 | NUR ---
RN NOTES PATIENT IN STABLE CONDITION TOLERATED TRACH AND VENT SETTING ORDERED. REMAINED IN SR. NO SOB. NO SIGNIFICANT CHANGES SHOWS. WILL CONTINUE PLAN OF CARE.
--- NOTE | 2017-08-06 07:10 | NUR ---
RN INITIAL NOTE PATIENT RECEIVED IN BED. PATIENT IS NON-VERBAL. HAS TRACH PORTEX #8, TOLERATING VENT SETTINGS WELL. SINUS RHYTHM ON TELE MONITOR. IV SITE FLUSHED, PATENT. GTUBE FLUSHED, PLACEMENT CONFIRMED. FEEDING ON HOLD PENDING MD ORDERS. SKIN IS WARM AND DRY TO TOUCH. SAFETY PRECAUTIONS IN PLACE. WILL MONITOR CLOSELY.
[2017-08-06 07:47] LABS: BASOPHILS % (AUTO) 0.3 % (0.0-2.0); EOSINOPHILS # (AUTO) 0.1 /CMM (0.0-0.7); EOSINOPHILS % (AUTO) 2.6 % (0.0-6.0); HEMATOCRIT 23 % (39-51); HEMOGLOBIN 7.7 g/dL (13.5-17.5); LYMPHOCYTES # (AUTO) 0.3 /CMM (0.8-4.8); LYMPHOCYTES % (AUTO) 10.5 % (20.0-44.0); MEAN CORPUSCULAR HEMOGLOBIN 31 PG (26.0-33.0); MEAN CORPUSCULAR HGB CONC 34 g/dl (31.0-36.0); MEAN CORPUSCULAR VOLUME 92 fL (80-96); MONOCYTES # (AUTO) 0.2 /CMM (0.1-1.30); MONOCYTES % (AUTO) 6.6 % (2.0-12.0); RDW COEFFICIENT OF VARIATION 20.8 (11.5-15.0); RED BLOOD CELL COUNT(AUTO) 2.44 MIL/uL (4.5-6.0); WHITE BLOOD COUNT (AUTO) 2.4 K/uL (4.3-11.0)
[2017-08-06 07:52] LABS: PLATELET COUNT (AUTO) 42 /CMM (150-450)
[2017-08-06 08:00] VITALS: BP 128/71
[2017-08-06 08:13] LABS: CREATININE 4.6 mg/dL (0.6-1.3); PHOSPHORUS 5.2 mg/dL (2.5-4.9); POTASSIUM 3.1 mmol/L (3.5-5.1)
[2017-08-06 09:11] LABS: LYMPHOCYTES % (MANUAL) 9 % (16-48); MONOCYTES % (MANUAL) 5 % (0-11.0); NEUTROPHILS % (MANUAL) 86 (42-76)
[2017-08-06] MEDS: BACITRACIN/POLYMYXIN B 15 GM TUBE TP SCH ×3 (09:57→17:07)
[2017-08-06] MEDS: Z GUARD REMEDY 2 OZ OINT TP SCH (09:57)
[2017-08-06] MEDS: SEVELAMER CARBONATE 0.8 GM POWD.PACK GT SCH ×3 (09:57→21:13)
[2017-08-06] MEDS: HYDROGEL DRESSING 90 GM TUBE TP SCH (09:57)
[2017-08-06] MEDS: TRAMADOL HCL 50 MG TABLET GT SCH ×2 (09:57→21:15)
[2017-08-06] MEDS: MEROPENEM 500 MG in IV NS 0.9% 50 ML IV SCH ×2 (09:57→21:16)
[2017-08-06] MEDS: PANTOPRAZOLE 40 MG/PACK PACK GT SCH ×2 (09:58→16:46)
[2017-08-06] MEDS: VIT B CMPLX 3/FA/VIT C/BIOTIN 1 TAB TABLET GT SCH (09:58)
[2017-08-06] MEDS: GABAPENTIN 100 MG CAPSULE GT SCH ×2 (09:58→21:15)
[2017-08-06] MEDS: LACTOBACILLUS RHAMNOSUS GG 1 EACH CAP.SPRINK GT SCH ×2 (09:58→16:46)
[2017-08-06] MEDS: ZINC SULFATE 220 MG CAPSULE GT SCH (09:58)
[2017-08-06] MEDS: FOLIC ACID 1 MG TABLET GT SCH (09:58)
[2017-08-06] MEDS: glipiZIDE 5 MG TABLET GT SCH ×2 (09:58→16:46)
[2017-08-06] MEDS: LEVETIRACETAM SOL (5 ML) 100 MG/ML UDC GT SCH ×2 (09:58→21:13)
[2017-08-06] MEDS: POTASSIUM CL. PREMIX PERIPHER. 50 ML IV SCH ×4 (11:30→18:40)
[2017-08-06 12:00] VITALS: BP 161/70
[2017-08-06] MEDS: INSULIN DETEMIR 100 UNIT/ML CARTRIDGE SQ SCH ×3 (12:00→23:46)
[2017-08-06 16:00] VITALS: BP 155/55
--- NOTE | 2017-08-06 19:05 | NUR ---
RN CLOSING NOTE ALL MD ORDERS CARRIED OUT. PATIENT KEPT CLEAN AND DRY. NEEDS ANTICIPATED. SAFETY PRECAUTIONS IN PLACE AT ALL TIMES. WILL GIVE REPORT TO PM RN FOR KRYS
[2017-08-06 20:00] VITALS: BP 157/72
--- NOTE | 2017-08-06 20:00 | NUR ---
RN INITIAL NOTES RECEIVED PT AWAKE ON BED, NON-VERBAL, OPENS EYES ONLY. ON VENT AC 16, TV 500, 40% FIO2, PEEP 0, PORTEX 8, SATURATING WELL, NO S/S OF RESP DISTRESS. CURRENTLY SR ON THE MONITOR, HR 60-70'S. ON GTUBE FEEDING OF NOVASOURCE @ 40MLS/HR, 80MLS RESIDUALS, WILL MONITOR CLOSELY. LEFT UPPER ARM MIDLINE WITH D5NS @ 75MLS/HR, FLUSHED AND PATENT, NO S/S OF INFILTRATION/INFECTION, DRESSING CDI. BED LOW AND LOCKED, SIDERAILS UP. WILL MONITOR
[2017-08-06] MEDS: PYRIDOXINE HCL 50 MG TABLET GT SCH (21:16)
--- NOTE | 2017-08-06 21:46 | NUR ---
RN NOTES NOTIFIED DR HERNANDEZ THAT NO LEAKING HAS BEEN NOTED WITH PATIENT'S GT. ALSO NOTIFIED HIM OF CURRENT FEEDING NOVASOURCE @ 30MLS/HR WITH 80MLS RESIDUALS. NO NEW ORDERS, FEEDING RATE IS TO STAY THE SAME. POSSIBLE INCREASE IN GTF RATE TOMORROW MORNING
--- NOTE | 2017-08-06 23:49 | NUR ---
RN NOTES DID NOT ADMINISTER SCHEDULED LEVEMIR 100UNITS. CURRENT BLOOD SUGAR IS 83 WITH GTUBE FEEDING AND IV D5NS @ 75MLS/HR
[2017-08-07] VITALS: BP 162/84
[2017-08-07 04:00] VITALS: BP 143/76
[2017-08-07] MEDS: BLOOD SUGAR DIAGNOSTIC 1 EACH STRIP IN SCH ×3 (05:11→17:25)
--- NOTE | 2017-08-07 06:30 | NUR ---
RN CLOSING NOTES PT REMAINS STABLE OF THE MOMENT. ALL DUE MEDS GIVEN, AM CARE PROVIDED. WILL ENDORSE KRYS TO AM RN
[2017-08-07 07:06] LABS: BASOPHILS % (AUTO) 0.4 % (0.0-2.0); EOSINOPHILS # (AUTO) 0.1 /CMM (0.0-0.7); EOSINOPHILS % (AUTO) 2.3 % (0.0-6.0); HEMATOCRIT 23 % (39-51); HEMOGLOBIN 7.8 g/dL (13.5-17.5); LYMPHOCYTES # (AUTO) 0.3 /CMM (0.8-4.8); LYMPHOCYTES % (AUTO) 10.1 % (20.0-44.0); MEAN CORPUSCULAR HEMOGLOBIN 32 PG (26.0-33.0); MEAN CORPUSCULAR HGB CONC 34 g/dl (31.0-36.0); MEAN CORPUSCULAR VOLUME 93 fL (80-96); MONOCYTES # (AUTO) 0.2 /CMM (0.1-1.30); NEUTROPHILS # (AUTO) 2.1 /CMM (1.8-8.9); NEUTROPHILS % (AUTO) 81.2 % (43.0-81.0); RED BLOOD CELL COUNT(AUTO) 2.47 MIL/uL (4.5-6.0); WHITE BLOOD COUNT (AUTO) 2.5 K/uL (4.3-11.0)
[2017-08-07 07:24] LABS: MAGNESIUM 2.1 mg/dL (1.8-2.4); PHOSPHORUS 5.6 mg/dL (2.5-4.9); POTASSIUM 3.1 mmol/L (3.5-5.1)
[2017-08-07 07:29] LABS: PLATELET COUNT (AUTO) 46 /CMM (150-450)
[2017-08-07 08:00] VITALS: BP 140/83
[2017-08-07 08:29] LABS: BAND % (MANUAL) 2 % (0.0-5.0); EOSINOPHILS % (MANUAL) 4 % (0-4); LYMPHOCYTES % (MANUAL) 11 % (16-48); MONOCYTES % (MANUAL) 6 % (0-11.0); NEUTROPHILS % (MANUAL) 77 (42-76)
[2017-08-07] MEDS: Z GUARD REMEDY 2 OZ OINT TP SCH (09:00)
[2017-08-07] MEDS: BACITRACIN/POLYMYXIN B 15 GM TUBE TP SCH ×3 (09:00→17:43)
[2017-08-07 12:00] VITALS: BP 121/61
[2017-08-07] MEDS: INSULIN DETEMIR 100 UNIT/ML CARTRIDGE SQ SCH (12:00)
[2017-08-07] MEDS: TRAMADOL HCL 50 MG TABLET GT SCH ×2 (12:17→20:53)
[2017-08-07] MEDS: LEVETIRACETAM SOL (5 ML) 100 MG/ML UDC GT SCH ×2 (12:17→20:53)
[2017-08-07] MEDS: GABAPENTIN 100 MG CAPSULE GT SCH ×2 (12:18→20:53)
[2017-08-07] MEDS: glipiZIDE 5 MG TABLET GT SCH ×2 (12:18→17:00)
[2017-08-07] MEDS: VIT B CMPLX 3/FA/VIT C/BIOTIN 1 TAB TABLET GT SCH (12:18)
[2017-08-07] MEDS: PANTOPRAZOLE 40 MG/PACK PACK GT SCH ×2 (12:18→17:23)
[2017-08-07] MEDS: LACTOBACILLUS RHAMNOSUS GG 1 EACH CAP.SPRINK GT SCH ×2 (12:18→17:43)
[2017-08-07] MEDS: FOLIC ACID 1 MG TABLET GT SCH (12:19)
[2017-08-07] MEDS: SEVELAMER CARBONATE 0.8 GM POWD.PACK GT SCH ×3 (12:19→20:52)
[2017-08-07] MEDS: HYDROGEL DRESSING 90 GM TUBE TP SCH (12:19)
[2017-08-07] MEDS: ZINC SULFATE 220 MG CAPSULE GT SCH (12:19)
[2017-08-07] MEDS: MEROPENEM 500 MG in IV NS 0.9% 50 ML IV SCH ×2 (12:20→21:04)
[2017-08-07] MEDS: VANCOMYCIN 500 MG in IV D5W 100 ML IV PRN (13:40)
[2017-08-07] MEDS: IV D5/ 0.9% NACL 1,000 ML IV PRN (14:58)
[2017-08-07] MEDS ORDERED: EPOETIN ALFA (10,000 UNIT) 10,000 UNIT/ML VIAL SQ ONE (15:00)
[2017-08-07 16:00] VITALS: BP 130/80
[2017-08-07] MEDS: ACETAMINOPHEN 650 MG/20.3 ML UDC GT PRN (17:23)
--- NOTE | 2017-08-07 18:55 | NUR ---
RN CLOSING NOTE PT REMAINED STABLE THROUGH SHIFT. ALL DUE MEDS GIVEN, NEEDS MET, PT SEEN BY DR VELA, SHE DECREASED IV FLUIDS TO 40ML/HR, TO INCREASE THE G TUBE FEEDING TO GOAL OF 40 ML/HR, PT NOTED TO HAVE RESIDUALS OF 210 ML AT 1730. FEEDING HELD SINCE THEN. WILL ENDORSE KRYS PM RN.
[2017-08-07 20:00] VITALS: BP 164/73
--- NOTE | 2017-08-07 20:00 | NUR ---
RN NOTES AWAKE IN BED WITH NO RESPIRATORY DISTRESS OR SHORTNESS OF BREATH. BREATHING EVEN AND UNLABORED. NOTED WITH EYE TRACKING. RESPONSIVE TO TOUCH. NON VERBAL. NO PHYSICAL MANIFESTATION OF PAIN OR DISCOMFORT. VENT SETTING WELL TOLERATED. KEPT CLEAN AND DRY. WILL CONTINUE TO MONITOR.
[2017-08-07] MEDS: PYRIDOXINE HCL 50 MG TABLET GT SCH (20:52)
[2017-08-08] VITALS (14 sets, daily range): BP systolic 119–157; BP diastolic 50–65
--- NOTE | 2017-08-08 | NUR ---
RN NOTES BLOOD SUGAR 148MG/DL, 6 UNITS INSULIN ADMINISTERED. HELD LEVEMIR 100 UNITS. PATIENT'S FEEDING ON HOLD DUE TO RESIDUAL OF 25O ML. WILL CONTINUE TO MONITOR.
[2017-08-08] MEDS: BLOOD SUGAR DIAGNOSTIC 1 EACH STRIP IN SCH ×4 (00:14→18:29)
[2017-08-08] MEDS: INSULIN REGULAR, HUMAN 100 UNIT/ML 3 ML VIAL SQ PRN ×2 (00:16→05:45)
--- NOTE | 2017-08-08 06:40 | NUR ---
NO EPISODE OF RESPIRATORY DISTRESS. BREATHING EVEN AND UNLABORED. NOTED WITH MULTIPLE OPEN AND CLOSE BLISTERS ON RIGHT UPPER EXTREMITIES. NO SIGNIFICANT CHANGE OF CONDITION. KEPT CLEAN AND DRY. WILL ENDORSE TO AM SHIFT FOR CONTINUITY OF CARE.
--- NOTE | 2017-08-08 07:00 | NUR ---
RN NOTES RECEIVED PT ON BED, ALERT/ RESPONSIVE TO TOUCH / NON VERBAL , TRACH / VENT DEPENDENT , TRACH CARE DONE, NO SOB NOTED, ON TELE SR IN 70'S , BLISTERS NOTED TO R ARM , KEPT CLEANED AND DRY, WOUND CONSULT ORDERED PER REPORT . NO TF FEEDING RESIDUAL NOTED, TF INCREASED TO 40 CC/HR , D5 NS AT40CC/HR RUNNING VIA GT, SR UP x3, CALL LIGHT WITHIN EASY REACH, BED LOCKED AND IN LOWEST POSITION , WILL CONTINUE TO MONITOR PT CLSOELY AND NOTIFY MD FOR ANY SIGNIFICANT CHANGES.
[2017-08-08 07:56] LABS: BASOPHILS % (AUTO) 0.2 % (0.0-2.0); EOSINOPHILS % (AUTO) 0.7 % (0.0-6.0); LYMPHOCYTES # (AUTO) 0.2 /CMM (0.8-4.8); LYMPHOCYTES % (AUTO) 3.9 % (20.0-44.0); MEAN CORPUSCULAR HEMOGLOBIN 32 PG (26.0-33.0); MEAN CORPUSCULAR HGB CONC 35 g/dl (31.0-36.0); MEAN CORPUSCULAR VOLUME 93 fL (80-96); MONOCYTES # (AUTO) 0.3 /CMM (0.1-1.30); NEUTROPHILS # (AUTO) 4.6 /CMM (1.8-8.9); NEUTROPHILS % (AUTO) 90.2 % (43.0-81.0); RED BLOOD CELL COUNT(AUTO) 2.14 MIL/uL (4.5-6.0); WHITE BLOOD COUNT (AUTO) 5.1 K/uL (4.3-11.0)
[2017-08-08 08:02] LABS: CALCIUM, SERUM 7.6 mg/dL (8.5-10.1); CREATININE 4.5 mg/dL (0.6-1.3); POTASSIUM 3.1 mmol/L (3.5-5.1)
[2017-08-08 08:18] LABS: HEMATOCRIT 20 % (39-51); HEMOGLOBIN 6.9 g/dL (13.5-17.5)
[2017-08-08 08:19] LABS: PLATELET COUNT (AUTO) 34 /CMM (150-450)
--- NOTE | 2017-08-08 08:20 | NUR ---
INVESTIGATOR UTILITY BILL COMPLAINTS , lab called in stated that hgb 6.9 hct 20 wbc 5.1 left message to 's answering service waiting for returning call back
[2017-08-08] MEDS: ZINC SULFATE 220 MG CAPSULE GT SCH (08:21)
[2017-08-08] MEDS: VIT B CMPLX 3/FA/VIT C/BIOTIN 1 TAB TABLET GT SCH (08:21)
[2017-08-08] MEDS: FOLIC ACID 1 MG TABLET GT SCH (08:21)
[2017-08-08] MEDS: GABAPENTIN 100 MG CAPSULE GT SCH ×2 (08:21→22:07)
[2017-08-08] MEDS: LACTOBACILLUS RHAMNOSUS GG 1 EACH CAP.SPRINK GT SCH ×2 (08:21→17:12)
[2017-08-08] MEDS: SEVELAMER CARBONATE 0.8 GM POWD.PACK GT SCH ×3 (08:21→22:06)
[2017-08-08] MEDS: glipiZIDE 5 MG TABLET GT SCH ×2 (08:21→17:12)
[2017-08-08] MEDS: PANTOPRAZOLE 40 MG/PACK PACK GT SCH ×2 (08:22→17:12)
[2017-08-08] MEDS: TRAMADOL HCL 50 MG TABLET GT SCH ×2 (08:22→22:06)
[2017-08-08] MEDS: HYDROGEL DRESSING 90 GM TUBE TP SCH (08:23)
[2017-08-08] MEDS: BACITRACIN/POLYMYXIN B 15 GM TUBE TP SCH ×3 (08:23→17:13)
[2017-08-08] MEDS: Z GUARD REMEDY 2 OZ OINT TP SCH (08:23)
[2017-08-08] MEDS: LEVETIRACETAM SOL (5 ML) 100 MG/ML UDC GT SCH ×2 (08:25→22:08)
[2017-08-08] MEDS: PROSOURCE / PROSTAT (PYXIS) 30 ML UDC GT SCH (08:25)
--- NOTE | 2017-08-08 08:30 | NUR ---
TEL RN, .called back and orders given will give 1 units PRBC when ready
[2017-08-08] MEDS: MEROPENEM 500 MG in IV NS 0.9% 50 ML IV SCH ×2 (09:14→22:08)
[2017-08-08 09:19] LABS: BAND % (MANUAL) 3 % (0.0-5.0); EOSINOPHILS % (MANUAL) 1 % (0-4); LYMPHOCYTES % (MANUAL) 4 % (16-48); MONOCYTES % (MANUAL) 3 % (0-11.0); NEUTROPHILS % (MANUAL) 89 (42-76)
--- NOTE | 2017-08-08 11:50 | NUR ---
RN NOTES ONE UNIT OF BLOOD STARTED ,VSS STABLE , CONTINUE TO MONITOR
--- NOTE | 2017-08-08 12:35 | NUR ---
RN NOTES DR VELA NOTIFIED REGARDING BG 86, LEVEMIR INSULIN HELD PER MD ORDER, DR VELA ALSO NOTIFIED REGARDING R ARM BLISTERS , MD ON THE FLOOR SEEING THE PT. CONTINUE TO MONITOR .
[2017-08-08] MEDS ORDERED: POTASSIUM CHLORIDE 20 MEQ POWDER PACKET GT ONE (13:00)
[2017-08-08] MEDS ORDERED: ALBUMIN 25% 25 GM in PREMIX 1 EA IV PRN (14:00)
--- NOTE | 2017-08-08 15:00 | NUR ---
RN NOTES ONE UNIT OF BLOOD TRNASFUSED , PT TOLERATED WELL. NO REACTION NOTED , CONTINUE TO MONITOR .
[2017-08-08] MEDS: RENAL NOVASOURCE 1,000 ML BOTTLE GT PRN (17:42)
--- NOTE | 2017-08-08 18:39 | NUR ---
RN NOTES PT STABLE ,TRACH SUCTIONING DONE , NO DISTRESS NOTED, TOLERATING TF WELL , NO RESIDUAL NOTED, MEDICATED PER MD ORDER , NO SIGNIFICANT CHANGES NOTED ON THIS SHIFT
--- NOTE | 2017-08-08 20:00 | NUR ---
RN NOTES RECEIVED PATIENT IN BED RESTING COMFORTABLY WITH NO DISTRESS NOTED. BREATHING EVEN AND UNLABORED. VENT SETTING WELL TOLERATED. GT INTACT WITH REDNESS ON SITE. SMALL AMOUNT OF LEAKAGE NOTED. FEEDING WELL TOLERATED. NO RESIDUAL. ALERT AND RESPONSIVE TO TOUCH. EYE TRACKING NOTED. KEPT CLEAN AND DRY. WILL CONTINUE TO MONITOR.
[2017-08-08] MEDS: INSULIN DETEMIR 100 UNIT/ML CARTRIDGE SQ SCH ×2 (21:00)
[2017-08-08] MEDS: PYRIDOXINE HCL 50 MG TABLET GT SCH (22:07)
[2017-08-09] VITALS: BP 151/67
[2017-08-09] MEDS: INSULIN REGULAR, HUMAN 100 UNIT/ML 3 ML VIAL SQ PRN ×2 (00:22→05:36)
[2017-08-09 04:00] VITALS: BP 153/63
[2017-08-09] MEDS: BLOOD SUGAR DIAGNOSTIC 1 EACH STRIP IN SCH ×5 (05:34→23:59)
--- NOTE | 2017-08-09 06:28 | NUR ---
RN CLOSING NOTES RESTING COMFORTABLY IN BED, NO DISTRESS NOTED. BREATHING EVEN AND UNLABORED. NO PHYSICAL MANIFESTATION OF PAIN. NEEDS ATTENDED. NO SIGNIFICANT CHANGE OF CONDITION NOTED OF THIS TIME. KEPT CLEAN AND DRY. WILL ENDORSE TO AM SHIFT FOR CONTINUITY OF CARE.
[2017-08-09 07:09] LABS: BASOPHILS % (AUTO) 0.4 % (0.0-2.0); HEMATOCRIT 24 % (39-51); HEMOGLOBIN 8.1 g/dL (13.5-17.5); LYMPHOCYTES # (AUTO) 0.2 /CMM (0.8-4.8); LYMPHOCYTES % (AUTO) 7.7 % (20.0-44.0); MEAN CORPUSCULAR HEMOGLOBIN 31 PG (26.0-33.0); MEAN CORPUSCULAR HGB CONC 34 g/dl (31.0-36.0); MEAN CORPUSCULAR VOLUME 92 fL (80-96); MONOCYTES # (AUTO) 0.2 /CMM (0.1-1.30); MONOCYTES % (AUTO) 5.9 % (2.0-12.0); NEUTROPHILS # (AUTO) 2.8 /CMM (1.8-8.9); RDW COEFFICIENT OF VARIATION 20.3 (11.5-15.0); RED BLOOD CELL COUNT(AUTO) 2.58 MIL/uL (4.5-6.0); WHITE BLOOD COUNT (AUTO) 3.2 K/uL (4.3-11.0)
[2017-08-09 07:39] LABS: PLATELET COUNT (AUTO) 34 /CMM (150-450)
--- NOTE | 2017-08-09 07:40 | NUR ---
RN NOTES CALL RECEIVED FROM PHARMACY WITH RESULTS OF [address] VELA MADE AWARE. CONTINUE TO MONITOR.
[2017-08-09 07:42] LABS: EOSINOPHILS % (MANUAL) 2 % (0-4); LYMPHOCYTES % (MANUAL) 11 % (16-48); MONOCYTES % (MANUAL) 6 % (0-11.0); NEUTROPHILS % (MANUAL) 81 (42-76)
[2017-08-09 07:56] LABS: CALCIUM, SERUM 8.5 mg/dL (8.5-10.1); MAGNESIUM 2.2 mg/dL (1.8-2.4); PHOSPHORUS 3.9 mg/dL (2.5-4.9); POTASSIUM 3.1 mmol/L (3.5-5.1)
[2017-08-09 08:00] VITALS: BP 149/81
--- NOTE | 2017-08-09 08:00 | NUR ---
RN NOTES RECEIVED PATIENT IN BED RESTING NO SOB OR ACUTE DISTRESS NOTED. PATIENT ON MECHANICAL VENT. SETTINGS NOTED. LEFT UPPER ARM MIDLINE INTACT PATENT. BED IN LOW LOCKED POSITION. CALL LIGHT WITHIN REACH. WILL CONTINUE TO MONITOR.
[2017-08-09] MEDS: GABAPENTIN 100 MG CAPSULE GT SCH ×2 (08:46→21:48)
[2017-08-09] MEDS: VIT B CMPLX 3/FA/VIT C/BIOTIN 1 TAB TABLET GT SCH (08:46)
[2017-08-09] MEDS: glipiZIDE 5 MG TABLET GT SCH ×2 (08:47→16:51)
[2017-08-09] MEDS: ZINC SULFATE 220 MG CAPSULE GT SCH (08:47)
[2017-08-09] MEDS: LACTOBACILLUS RHAMNOSUS GG 1 EACH CAP.SPRINK GT SCH ×2 (08:47→16:51)
[2017-08-09] MEDS: FOLIC ACID 1 MG TABLET GT SCH (08:47)
[2017-08-09] MEDS: PANTOPRAZOLE 40 MG/PACK PACK GT SCH ×2 (08:47→16:51)
[2017-08-09] MEDS: SEVELAMER CARBONATE 0.8 GM POWD.PACK GT SCH ×3 (08:47→21:47)
[2017-08-09] MEDS: LEVETIRACETAM SOL (5 ML) 100 MG/ML UDC GT SCH ×2 (08:47→21:48)
[2017-08-09] MEDS: TRAMADOL HCL 50 MG TABLET GT SCH ×2 (08:47→21:48)
[2017-08-09] MEDS: HYDROGEL DRESSING 90 GM TUBE TP SCH (08:48)
[2017-08-09] MEDS: BACITRACIN/POLYMYXIN B 15 GM TUBE TP SCH ×3 (08:48→16:52)
[2017-08-09] MEDS: Z GUARD REMEDY 2 OZ OINT TP SCH (08:49)
[2017-08-09] MEDS: PROSOURCE / PROSTAT (PYXIS) 30 ML UDC GT SCH (08:56)
[2017-08-09] MEDS: MEROPENEM 500 MG in IV NS 0.9% 50 ML IV SCH ×2 (09:46→21:48)
[2017-08-09] MEDS: INSULIN DETEMIR 100 UNIT/ML CARTRIDGE SQ SCH ×2 (09:46→22:26)
[2017-08-09 12:00] VITALS: BP 170/71
--- NOTE | 2017-08-09 12:00 | NUR ---
RN NOTES PATIENT SEEN AND EVALUATED BY DR. VELA, NOTIFIED MD OF INCREASED BP 176/71 STATES TO CONTINUE MONITORING AND WILL RECEIVE HD TOMORROW ALSO.
[2017-08-09] MEDS: VANCOMYCIN 500 MG in IV D5W 100 ML IV PRN (14:55)
[2017-08-09] MEDS ORDERED: EPOETIN ALFA (10,000 UNIT) 10,000 UNIT/ML VIAL SQ SCH (15:00)
[2017-08-09 16:00] VITALS: BP 174/72
[2017-08-09] MEDS: AMIKACIN 500 MG in IV D5W 100 ML IV PRN (18:26)
--- NOTE | 2017-08-09 18:42 | NUR ---
RN NOTES PATIENT IN BED RESTING NO SOB OR ACUTE DISTRESS NOTED. ALL DUE MEDICATIONS ADMINISTERED, ALL NEEDS MET. PATIENT DEPENEDENT ON VENTILATOR VENT SETTING NOTED. MIDLINE INTACT PATENT. WILL ENDORSE KRYS TO PM SHIFT.
--- NOTE | 2017-08-09 19:23 | NUR ---
PT RCVD ON MECH VENT WITH NOTED SETTINGS. SUCTION MODERATE AMOUNT OF WHITE THICK SECRETIONS. ALARM CHECKED AND AUDIBLE,VENT PLUGGED INTO RED OUTLET. BILATERAL BREATH SOUNDS NOTED, NO RESPIRATORY DISTRESS AT THIS TIME . WILL CONTINUE TO MONITOR THE PT
[2017-08-09 20:00] VITALS: BP 161/69
[2017-08-09] MEDS: PYRIDOXINE HCL 50 MG TABLET GT SCH (21:47)
[2017-08-09] MEDS: RENAL NOVASOURCE 1,000 ML BOTTLE GT PRN (21:51)
[2017-08-09] MEDS: IV NS 0.9% 250 ML IV PRN (22:02)
[2017-08-10] VITALS: BP 171/64
[2017-08-10 04:00] VITALS: BP 163/66
[2017-08-10] MEDS: BLOOD SUGAR DIAGNOSTIC 1 EACH STRIP IN SCH ×3 (05:45→18:37)
[2017-08-10 07:29] LABS: CREATININE 4.5 mg/dL (0.6-1.3); MAGNESIUM 2.2 mg/dL (1.8-2.4); PHOSPHORUS 2.5 mg/dL (2.5-4.9); POTASSIUM 2.9 mmol/L (3.5-5.1)
[2017-08-10 07:36] LABS: BASOPHILS % (AUTO) 0.4 % (0.0-2.0); EOSINOPHILS % (AUTO) 0.2 % (0.0-6.0); HEMATOCRIT 25 % (39-51); HEMOGLOBIN 8.4 g/dL (13.5-17.5); LYMPHOCYTES # (AUTO) 0.2 /CMM (0.8-4.8); LYMPHOCYTES % (AUTO) 7.3 % (20.0-44.0); MEAN CORPUSCULAR HEMOGLOBIN 32 PG (26.0-33.0); MEAN CORPUSCULAR HGB CONC 34 g/dl (31.0-36.0); MEAN CORPUSCULAR VOLUME 93 fL (80-96); MONOCYTES # (AUTO) 0.1 /CMM (0.1-1.30); MONOCYTES % (AUTO) 2.9 % (2.0-12.0); NEUTROPHILS # (AUTO) 2.1 /CMM (1.8-8.9); NEUTROPHILS % (AUTO) 89.2 % (43.0-81.0); RDW COEFFICIENT OF VARIATION 20.6 (11.5-15.0); RED BLOOD CELL COUNT(AUTO) 2.67 MIL/uL (4.5-6.0); WHITE BLOOD COUNT (AUTO) 2.4 K/uL (4.3-11.0)
[2017-08-10 08:00] VITALS: BP_SYST 120; BP_SYST 154; BP_DIAS 58; BP_DIAS 88
[2017-08-10 08:04] LABS: PLATELET COUNT (AUTO) 35 /CMM (150-450)
[2017-08-10] MEDS: glipiZIDE 5 MG TABLET GT SCH ×2 (09:00→16:01)
[2017-08-10] MEDS: BACITRACIN/POLYMYXIN B 15 GM TUBE TP SCH ×3 (09:00→16:01)
[2017-08-10] MEDS: INSULIN DETEMIR 100 UNIT/ML CARTRIDGE SQ SCH ×2 (09:00→22:04)
[2017-08-10] MEDS: VIT B CMPLX 3/FA/VIT C/BIOTIN 1 TAB TABLET GT SCH ×2 (09:55→21:59)
[2017-08-10] MEDS: LACTOBACILLUS RHAMNOSUS GG 1 EACH CAP.SPRINK GT SCH ×2 (09:55→16:00)
[2017-08-10] MEDS: PANTOPRAZOLE 40 MG/PACK PACK GT SCH ×2 (09:55→16:00)
[2017-08-10] MEDS: SEVELAMER CARBONATE 0.8 GM POWD.PACK GT SCH ×3 (09:55→21:59)
[2017-08-10] MEDS: ZINC SULFATE 220 MG CAPSULE GT SCH (09:55)
[2017-08-10] MEDS: FOLIC ACID 1 MG TABLET GT SCH (09:55)
[2017-08-10] MEDS: LEVETIRACETAM SOL (5 ML) 100 MG/ML UDC GT SCH ×2 (09:55→21:00)
[2017-08-10] MEDS: GABAPENTIN 100 MG CAPSULE GT SCH ×2 (09:56→21:59)
[2017-08-10] MEDS: TRAMADOL HCL 50 MG TABLET GT SCH ×2 (09:56→22:00)
[2017-08-10] MEDS: PROSOURCE / PROSTAT (PYXIS) 30 ML UDC GT SCH (09:56)
[2017-08-10] MEDS: MEROPENEM 500 MG in IV NS 0.9% 50 ML IV SCH ×2 (09:56→21:59)
[2017-08-10] MEDS: HYDROGEL DRESSING 90 GM TUBE TP SCH (10:00)
[2017-08-10] MEDS: Z GUARD REMEDY 2 OZ OINT TP SCH (10:00)
--- NOTE | 2017-08-10 10:00 | NUR ---
WOUND CARE CONSULT: PT SEEN FOR BLISTERS TO RT ARM WITH EDEMA. SOME ARE INTACT AND SOME BLISTERS ARE OPEN. NO SIGN OF INFECTION NOTED. NOTIFIED DR STELLA SCHWARTZ AND ORDERS RECEIVED. RECOMMEND SURGICAL FOLLOW UP. ALL RECOMMENDATIONS DISCUSSED WITH NURSING STAFF. WILL SEE PRN. IN AGREEMENT WITH PLAN OF CARE.
--- NOTE | 2017-08-10 10:02 | NUR ---
RN NOTE MORNING LEVEMIR AND GLIPIZIDE WERE HELD DUE TO BLOOD GLUCOSE BEING 79 MG/DL. WILL MONITOR PT AND FOLLOW UP WITH MD.
[2017-08-10 10:48] LABS: BAND % (MANUAL) 1 % (0.0-5.0); EOSINOPHILS % (MANUAL) 4 % (0-4); LYMPHOCYTES % (MANUAL) 9 % (16-48); MONOCYTES % (MANUAL) 3 % (0-11.0); NEUTROPHILS % (MANUAL) 83 (42-76)
[2017-08-10] MEDS: ACETAMINOPHEN 650 MG/20.3 ML UDC GT PRN (11:26)
[2017-08-10 12:00] VITALS: BP 134/51
[2017-08-10] MEDS ORDERED: POTASSIUM CHLORIDE 20 MEQ POWDER PACKET GT ONE (12:30)
--- NOTE | 2017-08-10 14:00 | NUR ---
RN NOTE PT HAD FEVER 102.4F EARLIER, TYLENOL AND COOLING MEASURES DONE, HD DONE TODAY, MD AWARE AND BLOOD CULTURES ORDERED. POTASSIUM REPLACED. WILL CARRY OUT ORDERS. AND MONITOR THE PT.
[2017-08-10] MEDS ORDERED: EPOETIN ALFA (10,000 UNIT) 10,000 UNIT/ML VIAL SQ STA (14:27)
[2017-08-10 16:00] VITALS: BP_SYST 110; BP_SYST 120; BP_DIAS 55; BP_DIAS 74
[2017-08-10] MEDS: INSULIN REGULAR, HUMAN 100 UNIT/ML 3 ML VIAL SQ PRN (18:38)
[2017-08-10] MEDS: FLUCONAZOLE (100 MG) 100 MG TABLET PO SCH (18:44)
--- NOTE | 2017-08-10 19:30 | NUR ---
EXPLOSIVE ORDNANCE SPECIALIST NOTES: RECEIVED PATIENT IN BED W/ HOB ELEVATED W/ NO SOB NOTED. NO FACIAL GRIMACES OR MOANING NOTED. NO S/S OF ANY RESPIRATORY DISTRESS NOTED. TOLERATING VENT SETTING. TOLERATED GTF WELL. NO RESIDUAL NOTED. AFEBRILE. ON SEIZURE AND ASPIRATION PRECAUTION MAINTAINED. WILL CONTINUE TO MONITOR.
[2017-08-10 20:00] VITALS: BP 104/54
[2017-08-10] MEDS: PYRIDOXINE HCL 50 MG TABLET GT SCH (22:19)
[2017-08-11] VITALS: BP_SYST 104; BP_SYST 146; BP_DIAS 54; BP_DIAS 58
--- NOTE | 2017-08-11 | NUR ---
SHIPPING CLERK CRATING NOTES: PATIENT RESTING COMFORTABLE IN BED W/ HOB ELEVATED. ALL DUE MEDS GIVEN ORDERED. HAS MID LINE ON JOANN W/ DRESSING INTACT AND PATENT W/ NO S/S OF INFECTION OR INFILTRATION NOTED. PT. HAS A LARGE LOOSE BROWN LIQUID BM. TURNED AND RESPOSITIONED. WILL CONTINUE TO MONITOR.
[2017-08-11] MEDS: BLOOD SUGAR DIAGNOSTIC 1 EACH STRIP IN SCH ×5 (00:44→23:13)
[2017-08-11] MEDS: INSULIN REGULAR, HUMAN 100 UNIT/ML 3 ML VIAL SQ PRN (00:48)
[2017-08-11 04:00] VITALS: BP_SYST 161; BP_DIAS 5; BP_DIAS 59
[2017-08-11] MEDS: ACETAMINOPHEN 650 MG/20.3 ML UDC GT PRN ×2 (06:05→14:24)
[2017-08-11] MEDS: IV NS 0.9% 250 ML IV PRN (06:29)
[2017-08-11 07:19] LABS: BASOPHILS % (AUTO) 0.6 % (0.0-2.0); HEMATOCRIT 21 % (39-51); LYMPHOCYTES # (AUTO) 0.2 /CMM (0.8-4.8); LYMPHOCYTES % (AUTO) 12.6 % (20.0-44.0); MEAN CORPUSCULAR HEMOGLOBIN 31 PG (26.0-33.0); MEAN CORPUSCULAR HGB CONC 34 g/dl (31.0-36.0); MEAN CORPUSCULAR VOLUME 92 fL (80-96); MONOCYTES # (AUTO) 0.2 /CMM (0.1-1.30); MONOCYTES % (AUTO) 10.4 % (2.0-12.0); NEUTROPHILS # (AUTO) 1.5 /CMM (1.8-8.9); NEUTROPHILS % (AUTO) 74.4 % (43.0-81.0); RDW COEFFICIENT OF VARIATION 20.9 (11.5-15.0); RED BLOOD CELL COUNT(AUTO) 2.23 MIL/uL (4.5-6.0)
[2017-08-11 07:30] LABS: CALCIUM, SERUM 8.2 mg/dL (8.5-10.1); CREATININE 4.8 mg/dL (0.6-1.3); MAGNESIUM 2.3 mg/dL (1.8-2.4); PHOSPHORUS 2.2 mg/dL (2.5-4.9); POTASSIUM 3.4 mmol/L (3.5-5.1)
--- NOTE | 2017-08-11 07:30 | NUR ---
TELE NURSE NOTES: PATIENT RESTING COMFORTABLE. NOT IN ANY ACUTE RESPIRATORY DISTRESS. HOB ELEVATED. ALL NEEDS MEET AND ATTENDED. REPORT GIVEN TO INCOMING SHIFT FOR CONTINUE PLAN OF CARE.
[2017-08-11 07:36] LABS: PLATELET COUNT (AUTO) 22 /CMM (150-450)
--- NOTE | 2017-08-11 07:46 | NUR ---
RN NOTES RECEIVED PT FROM REROLLING MACHINE OPERATOR IN STABLE CONDITION, CHRONIC VENT TRACH DEPENDENT, NONVERBAL, A&OX1. TOLERATING VENT SETTINGS NO SOB OR DISTRESS NOTED. SR IN THE TELE MONITOR HR 75. GTF AT 40ML/HR. BED LOCKED AND IN LOWEST POSITION, CALL LIGHT WITHIN REACH, SIDE RAILS UPX3, WILL CONT TO MONITOR.
[2017-08-11 08:00] VITALS: BP 159/65
[2017-08-11] MEDS: LEVETIRACETAM SOL (5 ML) 100 MG/ML UDC GT SCH ×2 (08:23→21:29)
[2017-08-11] MEDS: glipiZIDE 5 MG TABLET GT SCH ×2 (08:23→16:14)
[2017-08-11] MEDS: FLUCONAZOLE (100 MG) 100 MG TABLET PO SCH (08:23)
[2017-08-11] MEDS: GABAPENTIN 100 MG CAPSULE GT SCH ×2 (08:23→21:29)
[2017-08-11] MEDS: TRAMADOL HCL 50 MG TABLET GT SCH ×2 (08:23→21:29)
[2017-08-11] MEDS: Z GUARD REMEDY 2 OZ OINT TP SCH (08:25)
[2017-08-11] MEDS: HYDROGEL DRESSING 90 GM TUBE TP SCH (08:25)
[2017-08-11] MEDS: LACTOBACILLUS RHAMNOSUS GG 1 EACH CAP.SPRINK GT SCH ×2 (08:25→16:14)
[2017-08-11] MEDS: FOLIC ACID 1 MG TABLET GT SCH (08:25)
[2017-08-11] MEDS: ZINC SULFATE 220 MG CAPSULE GT SCH (08:25)
[2017-08-11] MEDS: PANTOPRAZOLE 40 MG/PACK PACK GT SCH ×2 (08:25→16:14)
[2017-08-11] MEDS: SEVELAMER CARBONATE 0.8 GM POWD.PACK GT SCH ×3 (08:25→21:29)
[2017-08-11] MEDS: PROSOURCE / PROSTAT (PYXIS) 30 ML UDC GT SCH (08:27)
[2017-08-11] MEDS: BACITRACIN/POLYMYXIN B 15 GM TUBE TP SCH ×3 (08:27→16:14)
[2017-08-11] MEDS: INSULIN DETEMIR 100 UNIT/ML CARTRIDGE SQ SCH ×2 (08:30→22:49)
[2017-08-11] MEDS: MEROPENEM 500 MG in IV NS 0.9% 50 ML IV SCH (10:03)
[2017-08-11 11:05] LABS: BAND % (MANUAL) 2 % (0.0-5.0); EOSINOPHILS % (MANUAL) 5 % (0-4); LYMPHOCYTES % (MANUAL) 7 % (16-48); MONOCYTES % (MANUAL) 10 % (0-11.0); NEUTROPHILS % (MANUAL) 76 (42-76)
[2017-08-11 12:00] VITALS: BP 157/66
[2017-08-11] MEDS: LORAZEPAM INJ 2 MG/ML VIAL IV PRN (15:01)
[2017-08-11 15:29] LABS: INR 1.03 (0.87-1.13); PROTHROMBIN TIME 10.7 SECS (9.5-12.7)
[2017-08-11 15:56] LABS: D-DIMER 3.18 mg/L(FEU (0.17-0.50)
[2017-08-11 16:00] VITALS: BP 141/63
--- NOTE | 2017-08-11 18:41 | NUR ---
patient spike fever 102.6,cooling measures done nera from ID notified ,will do blood culture per md order.
--- NOTE | 2017-08-11 18:45 | NUR ---
RN NOTES PT RESTING IN BED, COOLING MEASURES APPLIED FOR FEVER. NO OTHER SIGNIFICANT CHANGES THROUGHOUT THE SHIFT, PT REMAINED IN STABLE CONDITION. BED LOCKED AND IN LOWEST POSITION, CALL LIGHT WITHIN REACH, SIDE RAILS UPX3, WILL ENDORSE TO ONCOMING SHIFT.
--- NOTE | 2017-08-11 19:30 | NUR ---
ERGONOMICS CONSULTANT RCD PT W/TEMP 102.3; INITIATED COOLING MEASURES.
[2017-08-11 20:00] VITALS: BP 97/30
[2017-08-11] MEDS: PYRIDOXINE HCL 50 MG TABLET GT SCH (21:29)
--- NOTE | 2017-08-11 22:00 | NUR ---
MAINTENANCE MECHANIC TEMP 99.0; CONTINUE TO MONITOR.
[2017-08-11] MEDS: DEXTROSE 50%-WATER 50 ML DISP.SYRIN IV PRN (22:36)
--- NOTE | 2017-08-11 23:10 | NUR ---
COSMETIC SALES AT 2245 PT BLOOD SUGAR 37; ONE AMP D50 GIVEN; WITH STAT GLUCOSE LEVEL ORDERED; CALL PLACED TO MD; RECHECKED BLOOD SUGAR 114 AT THIS TIME; CONTINUE TO MONITOR.
[2017-08-12] VITALS (13 sets, daily range): BP systolic 106–150; BP diastolic 36–74
[2017-08-12] MEDS: RENAL NOVASOURCE 1,000 ML BOTTLE GT PRN ×2 (05:54→18:43)
[2017-08-12] MEDS: BLOOD SUGAR DIAGNOSTIC 1 EACH STRIP IN SCH ×4 (05:55→23:10)
[2017-08-12 07:25] LABS: BASOPHILS % (AUTO) 0.5 % (0.0-2.0); LYMPHOCYTES # (AUTO) 0.3 /CMM (0.8-4.8); LYMPHOCYTES % (AUTO) 10.3 % (20.0-44.0); MEAN CORPUSCULAR HEMOGLOBIN 32 PG (26.0-33.0); MEAN CORPUSCULAR HGB CONC 35 g/dl (31.0-36.0); MEAN CORPUSCULAR VOLUME 93 fL (80-96); MONOCYTES # (AUTO) 0.4 /CMM (0.1-1.30); MONOCYTES % (AUTO) 13.7 % (2.0-12.0); NEUTROPHILS # (AUTO) 2.1 /CMM (1.8-8.9); NEUTROPHILS % (AUTO) 75.5 % (43.0-81.0); RDW COEFFICIENT OF VARIATION 20.9 (11.5-15.0); WHITE BLOOD COUNT (AUTO) 2.8 K/uL (4.3-11.0)
--- NOTE | 2017-08-12 07:50 | NUR ---
RN NOTES RECEIVED PT LAYING IN BED. ALERT NON VERBAL. TRACHE MIDLINE, ON MECH VENT SETTINGS PRESCRIBED. SUCTIONED FOR AIRWAY CLEARANCE. SR ONTELE MONITOR. GTF ONGOING NOVASOURCE@ 40ML/HR, WITH DRESSING AROUND GT SITE, NOTED GT SITE LEAKING. WILL AWARE MD. Sary GARCIAACATDenisse NOTED, DRESSING CDI. JOANN MIDLINE FLUSHED WITH NS PATENT. BED LOCKED AND IN LOWEST POSITION, CALL LIGHT WITHIN REACH, SIDE RAILS UPX3, WILL CONT TO MONITOR.
[2017-08-12 07:53] LABS: CALCIUM, SERUM 7.9 mg/dL (8.5-10.1); CREATININE 4.5 mg/dL (0.6-1.3); HEMOGLOBIN 6.1 g/dL (13.5-17.5); POTASSIUM 3.2 mmol/L (3.5-5.1)
[2017-08-12 07:54] LABS: HEMATOCRIT 18 % (39-51); PLATELET COUNT (AUTO) 22 /CMM (150-450)
[2017-08-12] MEDS: FOLIC ACID 1 MG TABLET GT SCH (08:36)
[2017-08-12] MEDS: SEVELAMER CARBONATE 0.8 GM POWD.PACK GT SCH ×5 (08:36→21:51)
[2017-08-12] MEDS: PANTOPRAZOLE 40 MG/PACK PACK GT SCH ×2 (08:36→16:20)
[2017-08-12] MEDS: ZINC SULFATE 220 MG CAPSULE GT SCH (08:36)
[2017-08-12] MEDS: VIT B CMPLX 3/FA/VIT C/BIOTIN 1 TAB TABLET GT SCH (08:36)
[2017-08-12] MEDS: FLUCONAZOLE (100 MG) 100 MG TABLET PO SCH (08:36)
[2017-08-12] MEDS: LEVETIRACETAM SOL (5 ML) 100 MG/ML UDC GT SCH ×3 (08:36→20:21)
[2017-08-12] MEDS: TRAMADOL HCL 50 MG TABLET GT SCH ×2 (08:37→20:22)
[2017-08-12] MEDS: GABAPENTIN 100 MG CAPSULE GT SCH ×3 (08:37→20:22)
[2017-08-12] MEDS: glipiZIDE 5 MG TABLET GT SCH ×2 (08:37→16:20)
[2017-08-12] MEDS: LACTOBACILLUS RHAMNOSUS GG 1 EACH CAP.SPRINK GT SCH ×2 (08:37→16:20)
[2017-08-12] MEDS: HYDROGEL DRESSING 90 GM TUBE TP SCH (08:37)
[2017-08-12] MEDS: PROSOURCE / PROSTAT (PYXIS) 30 ML UDC GT SCH (08:38)
[2017-08-12] MEDS: INSULIN DETEMIR 100 UNIT/ML CARTRIDGE SQ SCH ×2 (09:00→21:00)
[2017-08-12] MEDS: DEXTROSE 50%-WATER 50 ML DISP.SYRIN IV PRN ×3 (09:15→23:12)
[2017-08-12] MEDS: Z GUARD REMEDY 2 OZ OINT TP SCH (09:17)
[2017-08-12] MEDS: BACITRACIN/POLYMYXIN B 15 GM TUBE TP SCH ×3 (09:17→17:31)
--- NOTE | 2017-08-12 09:20 | NUR ---
RN NOTES BS CHECKED 50MG/DL. D50 GIVEN
--- NOTE | 2017-08-12 10:01 | NUR ---
RN NOTES BS RECHECKED NOTED 114MG/DL
[2017-08-12 10:22] LABS: BAND % (MANUAL) 6 % (0.0-5.0); EOSINOPHILS % (MANUAL) 2 % (0-4); LYMPHOCYTES % (MANUAL) 4 % (16-48); MONOCYTES % (MANUAL) 11 % (0-11.0); NEUTROPHILS % (MANUAL) 77 (42-76)
[2017-08-12] MEDS ORDERED: IV D5/ 0.9% NACL 1,000 ML IV PRN (11:35)
[2017-08-12 15:12] LABS: BASOPHILS % (AUTO) 0.5 % (0.0-2.0); LYMPHOCYTES # (AUTO) 0.4 /CMM (0.8-4.8); LYMPHOCYTES % (AUTO) 14.2 % (20.0-44.0); MEAN CORPUSCULAR HEMOGLOBIN 31 PG (26.0-33.0); MEAN CORPUSCULAR HGB CONC 34 g/dl (31.0-36.0); MEAN CORPUSCULAR VOLUME 93 fL (80-96); MONOCYTES # (AUTO) 0.3 /CMM (0.1-1.30); MONOCYTES % (AUTO) 11.9 % (2.0-12.0); NEUTROPHILS # (AUTO) 2.1 /CMM (1.8-8.9); NEUTROPHILS % (AUTO) 73.4 % (43.0-81.0); RED BLOOD CELL COUNT(AUTO) 2.07 MIL/uL (4.5-6.0); WHITE BLOOD COUNT (AUTO) 2.9 K/uL (4.3-11.0)
[2017-08-12 15:37] LABS: HEMATOCRIT 19 % (39-51); HEMOGLOBIN 6.5 g/dL (13.5-17.5); PLATELET COUNT (AUTO) 25 /CMM (150-450)
--- NOTE | 2017-08-12 17:55 | NUR ---
RN NOTES REPORTED CT ABDOMEN RESULT TO DR HERNANDEZ. ALSO MADE AWARE GT WAS OUT, PER MD NEEDS CONSENT FOR GT PLACEMENT AND EGD
[2017-08-12] MEDS: METRONIDAZOLE 500MG/ NS 100ML 500 MG in PREMIX 1 EA IV SCH (18:02)
[2017-08-12] MEDS ORDERED: ANESTHESIA TRAY IN PYXIS 1 EA TRAY MC ONE (18:33)
--- NOTE | 2017-08-12 18:35 | NUR ---
RN NOTES S/P GASTROSTOMY TUBE PLACEMENT AND EGD AT BEDSIDE BY DR HERNANDEZ. PER MD OKAY TO RESTART TUBE FEEDING NOW AND MONITOR FOR ANY GT SITE LEAKING
--- NOTE | 2017-08-12 19:00 | NUR ---
LICENSED THERAPIST: RECEIVED VENT DEPENDENT PT ALERT AND AWAKE, ABLE TO MAKE NEEDS KNOWN VIA FACIAL GESTURES/MOUTH WORDS. TOLERATING VENT SETTINGS ORDERED WT NO ACUTE DISTRESS. NO C/O PAIN OR EVIDENCE OF DISCOMFORT. ONGOING PRBC TRANSFUSION WT NO ADVERSE REACTIONS ON JOANN MIDLINE. SR ON TELE MONITOR. AFEBRILE. ON S/P PEG PLACEMENT WT NO LEAKING AND POSITIVE PLACEMENT. TOLERATING GTF AT 10ML/HR WT NO RESIDUAL AND WILL INCREASE UNTIL GOAL RATE OF 30 IS REACHED AND DENNIS. HOB AT 35 DEGREES. SAFETY PRECAUTION NOTED. WILL CONTINUE TO MONITOR.
--- NOTE | 2017-08-12 20:00 | NUR ---
BRONC BREAKER: ONE UNIT PRBC TRANSFUSED WT NO ADVERSE REACTIONS AT THIS TIME. SR ON TELE MONITOR. AFEBRILE. WILL CONTINUE TO MONITOR.
--- NOTE | 2017-08-12 21:06 | NUR ---
FILLING LAYER UP: BLOOD SUGAR CHECKED FOR LEVEMIR ADMINISTRATION WT RESULT OF 55. NO S/S OF HYPOGLYCEMIA SUCH DIAPHORESIS OR ALTERED MENTAL STATUS. PT REMAINED ALERT AND AWAKE AND ABLE TO MAKE NEEDS KNOWN VIA FACIAL GESTURES. TOLERATING GTF WT NO RESIDUAL AT 10ML/HR. JOANN MIDLINE RUNNING AT D5NS AT 75ML/HR. PAGED AWAITING TO CALL BACK.
--- NOTE | 2017-08-12 21:30 | NUR ---
COUNTY RECORDS MANAGEMENT OFFICER: RECHECKED BLOOD SUGAR WT RESULT OF 58. REMAINED ASYMPTOMATIC FOR HYPOGLYCEMIA. STILL AWAITING FOR MD TO CALL BACK. INCREASED GTF TO 15ML/HR. [facility] CHARGE NURSE MADE AWARE OF BLOOD SUGAR RESULTS AND ALSO CONFIRMED GT PLACEMENT WT NO LEAKING AT THIS TIME. WILL CONTINUE TO MONITOR.
[2017-08-12] MEDS: PYRIDOXINE HCL 50 MG TABLET GT SCH (21:51)
--- NOTE | 2017-08-12 22:30 | NUR ---
REPAIRING CALIBRATOR: GT SITE NOTED WT SMALL TO MODERATE LEAK. NO RESIDUAL. PRESSURE DRESSING APPLIED ON TOP OF STOMA. WILL CONTINUE TO MONITOR.
--- NOTE | 2017-08-12 23:40 | NUR ---
MULTIFOLD OPERATOR: DR. VITALY VELA CALLED BACK AND MADE AWARE OF GT WT LARGE AMT. OF LEAK AND PT HAS BEEN HAVING BLOOD SUGAR BELOW 60. GIVEN D50 ORDERED. PT REMAINED ALERT AND AWAKE WT NO DISTRESS. MD WT ORDER TO HOLD GTF, DC D5NS AND CHANGE TO D10 AT 75ML/HR. NOTED AND CARRIED OUT.
[2017-08-13] VITALS: BP 167/71
[2017-08-13] MEDS: IV 10% DEXTROSE 1,000 ML IV PRN ×2 (00:08→16:22)
--- NOTE | 2017-08-13 00:15 | NUR ---
OPEN HEARTH WORKER: RECHECKED BS AFTER GIVEN D50 WT RESULT OF 105. WILL CONTINUE TO MONITOR.
[2017-08-13] MEDS: METRONIDAZOLE 500MG/ NS 100ML 500 MG in PREMIX 1 EA IV SCH ×3 (01:02→18:41)
[2017-08-13 04:00] VITALS: BP 145/54
[2017-08-13] MEDS: BLOOD SUGAR DIAGNOSTIC 1 EACH STRIP IN SCH ×3 (05:39→18:41)
--- NOTE | 2017-08-13 06:25 | NUR ---
FINAL ASSEMBLER BOAT: BLOOD SUGAR RESULT=92. CONTINUE ON D10 AT 75ML/HR. GTF CONTINUE ON HOLD ORDERED. PRESSURE DRESSING ON GT SITE DRY, CLEAN AND INTACT. REMAINED ALERT AND AWAKE WT NO ACUTE DISTRESS. NO C/O PAIN OR EVIDENCE OF DISCOMFORT. VS WITHIN HIS BASELINE. HAD 2 EPISODES OF MODERATE AMT. OF SOFT BROWN STOOLS. GOOD SKIN CARE RENDERED. ALL NEEDS MET AND SAFETY PRECAUTION NOTED AT ALL TIMES.
--- NOTE | 2017-08-13 07:05 | NUR ---
APPLICATIONS SUPPORT SPECIALIST NOTE: RECEIVED PT AWAKE IN BED, VENT/TRACH DEPENDENT, TOLERATING VENT SETTINGS. JOANN MIDLINE RUNNING WITH D10W AT 75CC/HR. ON TELE MONITOR WITH SR 70. S/P PEG PLACEMENT WITH LEAKAGE NOTED. GT FEEDINGS AND MEDICATIONS VIA GT HELD ENDORSED BY MINE ANALYST NURSE DUE TO LEAKAGE. BED LOW, LOCKED, X 2 SIDERAILS UP AND CALL LIGHT WITHIN REACH. WILL CONT TO MONITOR.
[2017-08-13 07:18] LABS: BASOPHILS % (AUTO) 0.4 % (0.0-2.0); EOSINOPHILS % (AUTO) 0.1 % (0.0-6.0); HEMATOCRIT 23 % (39-51); HEMOGLOBIN 8.1 g/dL (13.5-17.5); LYMPHOCYTES # (AUTO) 0.3 /CMM (0.8-4.8); LYMPHOCYTES % (AUTO) 13.3 % (20.0-44.0); MEAN CORPUSCULAR HEMOGLOBIN 32 PG (26.0-33.0); MEAN CORPUSCULAR HGB CONC 35 g/dl (31.0-36.0); MEAN CORPUSCULAR VOLUME 92 fL (80-96); MONOCYTES # (AUTO) 0.3 /CMM (0.1-1.30); MONOCYTES % (AUTO) 11.2 % (2.0-12.0); NEUTROPHILS # (AUTO) 1.9 /CMM (1.8-8.9); RDW COEFFICIENT OF VARIATION 19.6 (11.5-15.0); RED BLOOD CELL COUNT(AUTO) 2.55 MIL/uL (4.5-6.0); WHITE BLOOD COUNT (AUTO) 2.6 K/uL (4.3-11.0)
[2017-08-13 07:37] LABS: CREATININE 4.8 mg/dL (0.6-1.3); POTASSIUM 3.3 mmol/L (3.5-5.1)
[2017-08-13 07:39] LABS: PLATELET COUNT (AUTO) 24 /CMM (150-450)
[2017-08-13 07:59] LABS: BAND % (MANUAL) 5 % (0.0-5.0); EOSINOPHILS % (MANUAL) 2 % (0-4); LYMPHOCYTES % (MANUAL) 11 % (16-48); MONOCYTES % (MANUAL) 9 % (0-11.0); NEUTROPHILS % (MANUAL) 73 (42-76)
[2017-08-13 08:00] VITALS: BP 131/66
--- NOTE | 2017-08-13 08:00 | NUR ---
TWISTER TENDER PAPER NOTE: DIALYSIS NURSE AT BEDSIDE. LABS REVIEWED PRIOR TO DIALYSIS.
[2017-08-13] MEDS: GABAPENTIN 100 MG CAPSULE GT SCH ×2 (09:00→21:00)
[2017-08-13] MEDS: PANTOPRAZOLE 40 MG/PACK PACK GT SCH ×2 (09:00→17:00)
[2017-08-13] MEDS: PROSOURCE / PROSTAT (PYXIS) 30 ML UDC GT SCH (09:00)
[2017-08-13] MEDS: TRAMADOL HCL 50 MG TABLET GT SCH ×2 (09:00→21:00)
[2017-08-13] MEDS: VIT B CMPLX 3/FA/VIT C/BIOTIN 1 TAB TABLET GT SCH (09:00)
[2017-08-13] MEDS: FLUCONAZOLE (100 MG) 100 MG TABLET PO SCH (09:00)
[2017-08-13] MEDS: LACTOBACILLUS RHAMNOSUS GG 1 EACH CAP.SPRINK GT SCH ×2 (09:00→17:00)
[2017-08-13] MEDS: SEVELAMER CARBONATE 0.8 GM POWD.PACK GT SCH ×3 (09:00→21:00)
[2017-08-13] MEDS: FOLIC ACID 1 MG TABLET GT SCH (09:00)
[2017-08-13] MEDS: ZINC SULFATE 220 MG CAPSULE GT SCH (09:00)
[2017-08-13] MEDS: BACITRACIN/POLYMYXIN B 15 GM TUBE TP SCH ×3 (09:00→17:00)
--- NOTE | 2017-08-13 10:21 | NUR ---
ARCH CUSHION SKIVING MACHINE OPERATOR NOTE: DIALYSIS NURSE REPORTED 3L REMOVED. [facility] LAB DRAW ORDER ENTERED.
[2017-08-13 12:00] VITALS: BP 129/68
[2017-08-13] MEDS: LEVETIRACETAM (500MG) 500 MG in IV NS 0.9% 100 ML IV SCH ×2 (12:45→22:19)
[2017-08-13] MEDS: HYDROGEL DRESSING 90 GM TUBE TP SCH (12:46)
[2017-08-13] MEDS: Z GUARD REMEDY 2 OZ OINT TP SCH (12:51)
--- NOTE | 2017-08-13 14:45 | NUR ---
APPEALS MANAGER NOTE: VANCO LEVEL REVIEWED WITH PHARMACIST. OK TO GIVE VANCO 500MG IV PRN AFTER HD. PHARMACIST INFORMED THAT PT RECEIVED HD TODAY.
[2017-08-13 16:00] VITALS: BP 133/74
[2017-08-13] MEDS ORDERED: VANCOMYCIN 1 GM in IV D5W 250 ML IV ONE (16:00)
--- NOTE | 2017-08-13 17:00 | NUR ---
DRIVER/MERCHANDISER NOTE: 1700 MEDS VIA GT HELD. AWARE.
--- NOTE | 2017-08-13 19:00 | NUR ---
HEAD OF MAINTENANCE NOTE: NO ACUTE CHANGES DURING SHIFT. JOANN MIDLINE RUNNING WITH D10W AT 75 CC/HR. GT FEEDING AND GT MEDS ON HOLD DUE TO LEAKAGE- DR HERNANDEZ AWARE. PT TOLERATING VENT SETTINGS. ORDERS CARRIED OUT. BED LOW, LOCKED, X2 SIDERAILS UP WITH CALL LIGHT WITHIN REACH. WILL ENDORSE TO SOCIAL MEDIA INTERN NURSE FOR KRYS.
--- NOTE | 2017-08-13 19:30 | NUR ---
PRIMARY TEACHING ASSISTANT INITIAL NOTES RECEIVED PATIENT NON-VERBAL, ABLE TO SHAKE FOR NO AND BLINK FOR YES. SEEN AND EXAMINED BY CLAMSHELL OPERATOR FOR FAHEEM MCCORMICK AT BEDSIDE. PER REPORT GT SITE HAS BEEN LEAKING EXCESSIVELY, AND DRESSING CHANGED FREQUENTLY. PER CLAMSHELL OPERATOR COVER GT SITE WITH COLOSTOMY BAG AND KEEP PATIENT NPO. DENIES PAIN AT THIS TIME. NO RESPIRATORY DISTRESS NOTED, WITH VENT SETTINGS AC 16, TV 500, FIO2 40%, PEEP 0. TRACH C/D/I. GT PATENT AND INTACT. GT STOMA SITE NOTED TO BE WARM TO TOUCH, RED AND TENDER. ON TELE MONITOR SR. WITH JOANN MIDLINE PATENT AND INTACT WITH D10W AT 75ML/HR. HOB ELEVATED. SIDE RAILS UP AND LOCKED. BED KEPT AT LOWEST POSITION. CALL LIGHT KEPT WITHIN EASY REACH. WILL CONTINUE TO MONITOR.
[2017-08-13] MEDS: VANCOMYCIN 500 MG in IV D5W 100 ML IV PRN (19:50)
--- NOTE | 2017-08-13 19:54 | NUR ---
MEMBER OF CONGRESS NOTE: AMIKIN 500MG IV PRN POST HD HELD PER PHARMACY WITH AMIKACIN LEVEL OF 10.9. BENEFITS MANAGER NURSE AWARE.
[2017-08-13 20:00] VITALS: BP 145/61
[2017-08-13] MEDS ORDERED: ACETAMINOPHEN 650 MG/SUPP.RECT RC PRN (20:00)
[2017-08-13] MEDS: FLUCONAZOLE IN NS 100 MG in PREMIX 1 EA IV SCH ×2 (21:16)
[2017-08-13] MEDS: PYRIDOXINE HCL 50 MG TABLET GT SCH (22:00)
[2017-08-14] VITALS: BP 93/52
[2017-08-14] MEDS: BLOOD SUGAR DIAGNOSTIC 1 EACH STRIP IN SCH ×5 (00:12→23:57)
--- NOTE | 2017-08-14 00:15 | NUR ---
blood sugar 146, no coverage per sliding scale. with d10w running as ordered. will continue to monitor.
[2017-08-14] MEDS: METRONIDAZOLE 500MG/ NS 100ML 500 MG in PREMIX 1 EA IV SCH ×3 (01:35→17:30)
[2017-08-14 04:00] VITALS: BP 149/80
[2017-08-14] MEDS ORDERED: INSULIN DETEMIR 100 UNIT/ML CARTRIDGE SQ SCH (07:00)
--- NOTE | 2017-08-14 07:00 | NUR ---
SOFT TILE SETTER NOTE: RECEIVED PT AWAKE IN BED, VENT/TRACH DEPENDENT, TOLERATING VENT SETTINGS. JOANN MIDLINE RUNNING WITH D10W AT 75CC/HR. ON TELE MONITOR WITH SR 74. S/P PEG PLACEMENT WITH LEAKAGE NOTED AND COVERED WITH COLOSTOMY BAG. BED LOW, LOCKED, X 2 SIDERAILS UP AND CALL LIGHT WITHIN REACH. WILL CONT TO MONITOR.
[2017-08-14 08:00] VITALS: BP 155/68
[2017-08-14] MEDS: LACTOBACILLUS RHAMNOSUS GG 1 EACH CAP.SPRINK GT SCH ×2 (09:00→17:00)
[2017-08-14] MEDS: ZINC SULFATE 220 MG CAPSULE GT SCH (09:00)
[2017-08-14] MEDS: TRAMADOL HCL 50 MG TABLET GT SCH ×2 (09:00→20:05)
[2017-08-14] MEDS: FOLIC ACID 1 MG TABLET GT SCH (09:00)
[2017-08-14] MEDS: PANTOPRAZOLE 40 MG/PACK PACK GT SCH ×2 (09:00→17:00)
[2017-08-14] MEDS: VIT B CMPLX 3/FA/VIT C/BIOTIN 1 TAB TABLET GT SCH (09:00)
[2017-08-14] MEDS: GABAPENTIN 100 MG CAPSULE GT SCH ×2 (09:00→20:05)
[2017-08-14] MEDS: PROSOURCE / PROSTAT (PYXIS) 30 ML UDC GT SCH (09:00)
[2017-08-14] MEDS: SEVELAMER CARBONATE 0.8 GM POWD.PACK GT SCH ×3 (09:00→20:05)
[2017-08-14] MEDS: LEVETIRACETAM (500MG) 500 MG in IV NS 0.9% 100 ML IV SCH ×2 (09:27→21:22)
[2017-08-14] MEDS: BACITRACIN/POLYMYXIN B 15 GM TUBE TP SCH ×3 (09:28→17:30)
[2017-08-14] MEDS: HYDROGEL DRESSING 90 GM TUBE TP SCH (09:29)
[2017-08-14] MEDS: Z GUARD REMEDY 2 OZ OINT TP SCH (09:30)
--- NOTE | 2017-08-14 09:39 | NUR ---
MEDICAL SOCIOLOGIST NOTE: GT MEDICATIONS SCHEDULED AT 0900 HELD DUE TO GT LEAKAGE. WILL CONT TO MONITOR.
[2017-08-14 10:35] LABS: CALCIUM, SERUM 7.7 mg/dL (8.5-10.1); CREATININE 4.1 mg/dL (0.6-1.3); MAGNESIUM 2.1 mg/dL (1.8-2.4); PHOSPHORUS 2.3 mg/dL (2.5-4.9); POTASSIUM 3.4 mmol/L (3.5-5.1)
[2017-08-14] MEDS: IV 10% DEXTROSE 1,000 ML IV PRN (11:15)
[2017-08-14] MEDS: INSULIN REGULAR, HUMAN 100 UNIT/ML 3 ML VIAL SQ PRN ×2 (11:33→17:44)
[2017-08-14 11:41] LABS: BASOPHILS % (AUTO) 0.4 % (0.0-2.0); EOSINOPHILS # (AUTO) 0.1 /CMM (0.0-0.7); EOSINOPHILS % (AUTO) 4.6 % (0.0-6.0); HEMATOCRIT 21 % (39-51); HEMOGLOBIN 7.3 g/dL (13.5-17.5); LYMPHOCYTES # (AUTO) 0.3 /CMM (0.8-4.8); LYMPHOCYTES % (AUTO) 14.5 % (20.0-44.0); MEAN CORPUSCULAR HEMOGLOBIN 32 PG (26.0-33.0); MEAN CORPUSCULAR HGB CONC 35 g/dl (31.0-36.0); MEAN CORPUSCULAR VOLUME 92 fL (80-96); MONOCYTES # (AUTO) 0.2 /CMM (0.1-1.30); MONOCYTES % (AUTO) 10.9 % (2.0-12.0); NEUTROPHILS # (AUTO) 1.6 /CMM (1.8-8.9); NEUTROPHILS % (AUTO) 69.6 % (43.0-81.0); RDW COEFFICIENT OF VARIATION 19.9 (11.5-15.0); RED BLOOD CELL COUNT(AUTO) 2.28 MIL/uL (4.5-6.0); WHITE BLOOD COUNT (AUTO) 2.2 K/uL (4.3-11.0)
[2017-08-14 11:54] LABS: PLATELET COUNT (AUTO) 30 /CMM (150-450)
--- NOTE | 2017-08-14 11:57 | NUR ---
OIL REFINERY PROCESS TECHNICIAN NOTE: 1200 ACCUCHECK NOT DONE BECAUSE BS CHECKED AT 1115 AND INSULIN GIVEN ORDERED.
[2017-08-14 12:00] VITALS: BP 148/59
[2017-08-14 16:00] VITALS: BP 149/50
--- NOTE | 2017-08-14 17:09 | NUR ---
EMERGENCY MANAGEMENT DIRECTOR NOTE: 1700 SCHEDULED MEDICATIONS VIA GT HELD DUE TO GT LEAKAGE.
--- NOTE | 2017-08-14 18:39 | NUR ---
EXECUTIVE CHEF ASSISTANT NOTE: NO ACUTE CHANGES DURING SHIFT. PER DR. HERNANDEZ, CONT TO HOLD GT FEEDINGS AND MEDS VIA GT. JOANN MIDLINE PATENT AND INTACT. RCW HD CATH NOTED. GT WITH COLOSTOMY BAG PATENT AND INTACT. BED LOW, LOCKED, X2 SIDE RAILS UP AND CALL LIGHT WITHIN REACH. WILL ENDORSE TO PARENT EDUCATOR NURSE FOR KRYS.
--- NOTE | 2017-08-14 19:30 | NUR ---
CONSULTING BUSINESS DEVELOPER INITIAL NOTES RECEIVED PATIENT AWAKE, NON-VERBAL, VENT DEPENDENT, RESPONSIVE TO NAME, ABLE TO COMMUNICATE WITH GESTURES, SHAKES HEAD FOR NO AND BLINKS EYES FOR YES. DAUGHTER AT BEDSIDE. DENIES PAIN OR DISCOMFORT AT THIS TIME. NO RESPIRATORY DISTRESS NOTED. WITH VENT SETTINGS AC 16, TV 500, FIO2 40%, PEEP 0, SPO2 100%. TRACH C/D/I. ON TELE MONITOR SR. WITH GT PATENT AND INTACT. COLOSTOMY BAG OVER GT SITE. MINIMAL DRAINAGE NOTED. HOB ELEVATED. SIDE RAILS UP AND LOCKED. BED KEPT AT LOWEST POSITION. CALL LIGHT KEPT WITHIN EASY REACH. WILL CONTINUE TO MONITOR.
[2017-08-14 20:00] VITALS: BP 144/83
[2017-08-14] MEDS: FLUCONAZOLE IN NS 100 MG in PREMIX 1 EA IV SCH ×2 (20:05)
[2017-08-14] MEDS: PYRIDOXINE HCL 50 MG TABLET GT SCH (21:22)
[2017-08-15] VITALS: BP 128/67
[2017-08-15] MEDS: METRONIDAZOLE 500MG/ NS 100ML 500 MG in PREMIX 1 EA IV SCH ×3 (02:25→17:51)
[2017-08-15 04:00] VITALS: BP 128/72
[2017-08-15] MEDS: BLOOD SUGAR DIAGNOSTIC 1 EACH STRIP IN SCH ×4 (06:28→23:25)
[2017-08-15] MEDS: IV 10% DEXTROSE 1,000 ML IV PRN (06:28)
[2017-08-15] MEDS: INSULIN REGULAR, HUMAN 100 UNIT/ML 3 ML VIAL SQ PRN ×2 (06:29→18:00)
[2017-08-15 06:32] LABS: EOSINOPHILS # (AUTO) 0.1 /CMM (0.0-0.7); EOSINOPHILS % (AUTO) 2.8 % (0.0-6.0); HEMATOCRIT 22 % (39-51); HEMOGLOBIN 7.6 g/dL (13.5-17.5); LYMPHOCYTES # (AUTO) 0.2 /CMM (0.8-4.8); LYMPHOCYTES % (AUTO) 8.1 % (20.0-44.0); MEAN CORPUSCULAR HEMOGLOBIN 32 PG (26.0-33.0); MEAN CORPUSCULAR HGB CONC 35 g/dl (31.0-36.0); MEAN CORPUSCULAR VOLUME 92 fL (80-96); MONOCYTES # (AUTO) 0.1 /CMM (0.1-1.30); MONOCYTES % (AUTO) 6.7 % (2.0-12.0); NEUTROPHILS # (AUTO) 1.7 /CMM (1.8-8.9); NEUTROPHILS % (AUTO) 81.4 % (43.0-81.0); RDW COEFFICIENT OF VARIATION 19.2 (11.5-15.0); RED BLOOD CELL COUNT(AUTO) 2.38 MIL/uL (4.5-6.0); WHITE BLOOD COUNT (AUTO) 2.1 K/uL (4.3-11.0)
[2017-08-15 06:43] LABS: PLATELET COUNT (AUTO) 33 /CMM (150-450)
[2017-08-15 06:52] LABS: CALCIUM, SERUM 7.8 mg/dL (8.5-10.1); CREATININE 4.4 mg/dL (0.6-1.3); POTASSIUM 3.5 mmol/L (3.5-5.1)
--- NOTE | 2017-08-15 07:05 | NUR ---
LIFTS AND CRANES INSPECTOR NOTE: RECEIVED PT AWAKE IN BED, VENT/TRACH DEPENDENT, TOLERATING VENT SETTINGS. JOANN MIDLINE RUNNING WITH D10W AT 75CC/HR. ON TELE MONITOR WITH SR 74. S/P PEG PLACEMENT WITH GREEN LIQUID COLLECTED IN COLOSTOMY BAG. BED LOW, LOCKED, X 2 SIDERAILS UP AND CALL LIGHT WITHIN REACH. WILL CONT TO MONITOR.
--- NOTE | 2017-08-15 07:40 | NUR ---
HIGH DENSITY PRESS LABORER CLOSING NOTES NO SIGNIFICANT CHANGES OVERNIGHT. TOLERATED VENT SETTINGS. SUCTIONED NEEDED. TRACH CARE DONE. SR ON TELE MONITOR. KEPT CLEAN AND DRY. GT SITE KEPT CLEAN AND DRY. WITH JOANN MIDLINE D10W AT 75ML/HR RUNNING. NO RESPIRATORY DISTRESS NOTED. TURNED AND REPOSITIONED Q2 AND PRN. HOB ELEVATED. WOUND TX DONE ORDERED. SIDE RAILS UP AND LOCKED. BED KEPT AT LOWEST POSITION. CALL LIGHT KEPT WITHIN EASY REACH. CONTINUITY OF CARE ENDORSED TO AM NURSE.
[2017-08-15 08:00] VITALS: BP 194/68
[2017-08-15 08:07] LABS: BAND % (MANUAL) 1 % (0.0-5.0); LYMPHOCYTES % (MANUAL) 8 % (16-48); MONOCYTES % (MANUAL) 3 % (0-11.0); NEUTROPHILS % (MANUAL) 88 (42-76)
--- NOTE | 2017-08-15 08:10 | NUR ---
MEDICAL DELIVERY DRIVER NOTE: DIALYSIS NURSE AT BEDSIDE. LAB RESULTS REVIEWED.
[2017-08-15] MEDS: ZINC SULFATE 220 MG CAPSULE GT SCH (09:00)
[2017-08-15] MEDS: BACITRACIN/POLYMYXIN B 15 GM TUBE TP SCH ×3 (09:00→17:58)
[2017-08-15] MEDS: TRAMADOL HCL 50 MG TABLET GT SCH ×2 (09:00→21:00)
[2017-08-15] MEDS: GABAPENTIN 100 MG CAPSULE GT SCH ×2 (09:00→21:00)
[2017-08-15] MEDS: PANTOPRAZOLE 40 MG/PACK PACK GT SCH ×2 (09:00→17:00)
[2017-08-15] MEDS: SEVELAMER CARBONATE 0.8 GM POWD.PACK GT SCH ×3 (09:00→21:00)
[2017-08-15] MEDS: PROSOURCE / PROSTAT (PYXIS) 30 ML UDC GT SCH (09:00)
[2017-08-15] MEDS: LACTOBACILLUS RHAMNOSUS GG 1 EACH CAP.SPRINK GT SCH ×2 (09:00→17:00)
[2017-08-15] MEDS: VIT B CMPLX 3/FA/VIT C/BIOTIN 1 TAB TABLET GT SCH (09:00)
[2017-08-15] MEDS: FOLIC ACID 1 MG TABLET GT SCH (09:00)
--- NOTE | 2017-08-15 09:31 | NUR ---
PERSONNEL CLERKS SUPERVISOR NOTE: 0900 SCHEDULED MEDS VIA GT HELD DUE TO GT LEAKAGE.
--- NOTE | 2017-08-15 10:10 | NUR ---
CARPET JACK NOTE: PHARMACY CALLED AND VANCO AND AMIKICIN LABS REVIEWED. PHARMACY AWARE PATIENT RECEIVING HD. OK TO GIVE BOTH AMIKIN AND VANCO POST HD.
--- NOTE | 2017-08-15 10:15 | NUR ---
ENGINEER ASSISTANT NOTE: DIALYSIS NURSE REPORTED 1.7L REMOVED.
[2017-08-15] MEDS: AMIKACIN 500 MG in IV D5W 100 ML IV PRN (10:44)
[2017-08-15] MEDS: HYDROGEL DRESSING 90 GM TUBE TP SCH (10:56)
[2017-08-15] MEDS: Z GUARD REMEDY 2 OZ OINT TP SCH (10:57)
[2017-08-15] MEDS: LEVETIRACETAM (500MG) 500 MG in IV NS 0.9% 100 ML IV SCH ×2 (11:35→21:32)
[2017-08-15 12:00] VITALS: BP 144/58
[2017-08-15] MEDS: VANCOMYCIN 500 MG in IV D5W 100 ML IV PRN (12:29)
[2017-08-15 16:00] VITALS: BP 141/60
--- NOTE | 2017-08-15 17:38 | NUR ---
RETAIL TRAINING MANAGER NOTE: 1700 SCHEDULED MEDS VIA GT NOT GIVEN DUE TO GT LEAKAGE.
--- NOTE | 2017-08-15 19:00 | NUR ---
STRAIGHT RULING MACHINE OPERATOR NOTE: NO ACUTE CHANGES DURING SHIFT. PATIENT TOLERATED VENT SETTINGS. ON TELE MONITOR WITH SR. JOANN IV RUNNING WITH D10W AT 75CC/HR. GT SITE KEPT CLEAN AND DRY. ORDERS CARRIED OUT. HOB ELEVATED, BED LOW, LOCKED X 2 SIDE RAILS UP AND CALL LIGHT WITHIN REACH. WILL ENDORSE TO WELT SOLE LAYER NURSE FOR KRYS.
--- NOTE | 2017-08-15 19:45 | NUR ---
ARTIS/WINDOWS SYSTEMS ENGINEER RECIEVED REPORT FROM DAY SHIFT NURSE. PT IS ALERT TO SELF. PT IS VENTED TOLERATING CURRENT VENT SETTINGS AT 100%. PT HAS A COLOSTOMY BAG OVER G/TUBE SITE WITH GREEN BILE DRAINAGE. MD AWARE. PT IS A DIALYSIS PT, WHICH HE HAD TODAY, SEE FLOW SHEET FOR TOTAL LITERS OFF. PT HAS A FEW SKIN ISSUES THAT ARE ADDRESSED ON FLOW SHEET. PT WAS TURNED AND REPOSITIONED FOR COMFORT AND CARE.
[2017-08-15 20:00] VITALS: BP 146/62
[2017-08-15] MEDS: FLUCONAZOLE IN NS 100 MG in PREMIX 1 EA IV SCH ×2 (20:52)
[2017-08-15] MEDS: PYRIDOXINE HCL 50 MG TABLET GT SCH (22:00)
--- NOTE | 2017-08-15 23:30 | NUR ---
ARTIS/WAREHOUSE DIRECTOR BLOOD SUGAR WAS CHECKED WHICH WAS 118. THERE IS NO COVERAGE FOR THIS PER MD ORDERS WILL RECHECK LATER. PT WAS TURNED AND REPOSITION FOR COMFORT AND CARE.
[2017-08-16] VITALS (11 sets, daily range): BP systolic 120–162; BP diastolic 62–84
[2017-08-16] MEDS: IV 10% DEXTROSE 1,000 ML IV PRN ×2 (02:37→20:40)
[2017-08-16] MEDS: METRONIDAZOLE 500MG/ NS 100ML 500 MG in PREMIX 1 EA IV SCH ×3 (02:37→17:39)
--- NOTE | 2017-08-16 02:40 | NUR ---
ARTIS/PRIVATE BANKER PT GIVEN AM CARE, TOLERATED THIS WELL. REMAINS ON CURRENT VENT SETTINGS. PT WAS TURNED AND REPOSITIONED FOR COMFORT AND CARE.
[2017-08-16] MEDS: BLOOD SUGAR DIAGNOSTIC 1 EACH STRIP IN SCH ×3 (05:57→17:33)
[2017-08-16 06:55] LABS: BASOPHILS % (AUTO) 0.4 % (0.0-2.0); CALCIUM, SERUM 7.8 mg/dL (8.5-10.1); CREATININE 4.2 mg/dL (0.6-1.3); EOSINOPHILS # (AUTO) 0.1 /CMM (0.0-0.7); EOSINOPHILS % (AUTO) 2.8 % (0.0-6.0); LYMPHOCYTES # (AUTO) 0.3 /CMM (0.8-4.8); LYMPHOCYTES % (AUTO) 12.9 % (20.0-44.0); MEAN CORPUSCULAR HEMOGLOBIN 32 PG (26.0-33.0); MEAN CORPUSCULAR HGB CONC 34 g/dl (31.0-36.0); MEAN CORPUSCULAR VOLUME 93 fL (80-96); MONOCYTES # (AUTO) 0.2 /CMM (0.1-1.30); NEUTROPHILS # (AUTO) 1.4 /CMM (1.8-8.9); NEUTROPHILS % (AUTO) 73.9 % (43.0-81.0); POTASSIUM 3.4 mmol/L (3.5-5.1); RDW COEFFICIENT OF VARIATION 19.9 (11.5-15.0); RED BLOOD CELL COUNT(AUTO) 2.02 MIL/uL (4.5-6.0)
[2017-08-16 06:58] LABS: HEMATOCRIT 19 % (39-51); HEMOGLOBIN 6.4 g/dL (13.5-17.5); PLATELET COUNT (AUTO) 33 /CMM (150-450)
[2017-08-16 07:28] LABS: BAND % (MANUAL) 1 % (0.0-5.0); EOSINOPHILS % (MANUAL) 1 % (0-4); LYMPHOCYTES % (MANUAL) 8 % (16-48); MONOCYTES % (MANUAL) 8 % (0-11.0); NEUTROPHILS % (MANUAL) 82 (42-76)
--- NOTE | 2017-08-16 07:31 | NUR ---
ARTIS/GARMENT MANUFACTURER CALLED MD ABOUT H/H 6.5/ PLAT 33. DAY SHIFT AWARE AND DAY CHARGE NURSE TO F/U WITH .
--- NOTE | 2017-08-16 08:00 | NUR ---
GROUNDSKEEPER INITIAL NOTE RN RECEIVED PT IN BED ALERT AND ORIENTED TO SELF AND SURROUNDING CONGOLESE SPEAKING. PT IS VENT/ TRACH DEPENDENT AC SETTING TOLERATING CURRENT VENT SETTINGS WELL. NO DISTRESS NOTED. PT HAS A COLOSTOMY BAG OVER G/TUBE SITE WITH MODERATE AMOUNT GREEN BILE DRAINAGE. MD AWARE. PT IS A DIALYSIS PT,HD SCHEDULED TODAY. PT HAS A MULTIPLE SKIN ISSUES PRESENT. RN WILL CONTINUE TO MONITOR AND FOLLOW THE PATIENT THROUGHOUT THE DAY
[2017-08-16] MEDS: FOLIC ACID 1 MG TABLET GT SCH (08:39)
[2017-08-16] MEDS: GABAPENTIN 100 MG CAPSULE GT SCH ×2 (08:39→21:00)
[2017-08-16] MEDS: LACTOBACILLUS RHAMNOSUS GG 1 EACH CAP.SPRINK GT SCH ×2 (08:39→17:00)
[2017-08-16] MEDS: PROSOURCE / PROSTAT (PYXIS) 30 ML UDC GT SCH (08:39)
[2017-08-16] MEDS: VIT B CMPLX 3/FA/VIT C/BIOTIN 1 TAB TABLET GT SCH (08:39)
[2017-08-16] MEDS: TRAMADOL HCL 50 MG TABLET GT SCH ×2 (08:40→21:00)
[2017-08-16] MEDS: ZINC SULFATE 220 MG CAPSULE GT SCH (08:40)
[2017-08-16] MEDS: SEVELAMER CARBONATE 0.8 GM POWD.PACK GT SCH ×3 (08:40→21:00)
[2017-08-16] MEDS: PANTOPRAZOLE 40 MG/PACK PACK GT SCH ×2 (08:40→17:00)
[2017-08-16] MEDS: LEVETIRACETAM (500MG) 500 MG in IV NS 0.9% 100 ML IV SCH ×2 (08:44→21:27)
[2017-08-16] MEDS: HYDROGEL DRESSING 90 GM TUBE TP SCH (08:44)
[2017-08-16] MEDS: BACITRACIN/POLYMYXIN B 15 GM TUBE TP SCH ×3 (08:45→17:31)
[2017-08-16] MEDS: Z GUARD REMEDY 2 OZ OINT TP SCH (08:45)
[2017-08-16 08:50] LABS: MEAN CORPUSCULAR HEMOGLOBIN 32 PG (26.0-33.0); MEAN CORPUSCULAR HGB CONC 34 g/dl (31.0-36.0); MEAN CORPUSCULAR VOLUME 93 fL (80-96); RED BLOOD CELL COUNT(AUTO) 2.06 MIL/uL (4.5-6.0)
[2017-08-16 08:52] LABS: HEMATOCRIT 19 % (39-51); HEMOGLOBIN 6.5 g/dL (13.5-17.5); PLATELET COUNT (AUTO) 31 /CMM (150-450); WHITE BLOOD COUNT (AUTO) 1.9 K/uL (4.3-11.0)
--- NOTE | 2017-08-16 10:00 | NUR ---
RN NOTE PATIENT H/H LOW. BLOOD TRANSFUSION WILL BE ADMINISTERED DURING HD TODAY
[2017-08-16] MEDS: AMIKACIN 500 MG in IV D5W 100 ML IV PRN (14:51)
--- NOTE | 2017-08-16 15:23 | NUR ---
RN NOTE 2 UNITS OF RBC ADMINISTERED VIA DIALYSIS NURSE CHARGE NURSE NOLVIA WITNESSED AND HELP WITH ADMINISTRATION , NO ALLERGIC REACTIONS NOTED AT THIS TIME. RN WILL CONTINUE TO FOLLOW
--- NOTE | 2017-08-16 15:51 | NUR ---
RN NOTE POST DIALYSIS VITALS 164/77 72 98.3 3200L REMOVED HD
--- NOTE | 2017-08-16 16:04 | NUR ---
RN NOTE AMIKACIN NOT GIVEN DUE TO CRITICAL LAB VALUE OF 15.2 PHARMACY NOTIFIED CHARGE NURSE STATES RN DOESN'T HAVE TO CALL MD TO NOTIFY HIM OF LAB VALUE
[2017-08-16] MEDS: VANCOMYCIN 500 MG in IV D5W 100 ML IV PRN (17:36)
[2017-08-16] MEDS: INSULIN REGULAR, HUMAN 100 UNIT/ML 3 ML VIAL SQ PRN (17:40)
--- NOTE | 2017-08-16 19:17 | NUR ---
RN CLOSING NOTE PATIENT STABLE THROUGHOUT THE DAY HD NURSE TRANSFUSE 2 UNITS OF RBC PATIENT TOLERATED WELL NO ISSUES , PATIENT NEEDS ATTENDED PATIENT TURNED AND REPOSITIONED Q 2HRS PT MEDICATION HELD DUE TO NPO STATUS , CHARGE NURSE AND PHARMACY NOTIFIED RN WILL ENDORSE CARE TO PM RN ,
--- NOTE | 2017-08-16 20:00 | NUR ---
RN NOTES RECEIVED PATIENT IN BED WITH EYE CLOSE. NO RESPIRATORY DISTRESS OR SHORTNESS OF BREATH. BREATHING EVEN AND UNLABORED. NO PHYSICAL MANIFESTATION OF PAIN OR DISCOMFORT. KEPT CLEAN AND DRY. WILL CONTINUE TO MONITOR.
[2017-08-16] MEDS: FLUCONAZOLE IN NS 100 MG in PREMIX 1 EA IV SCH ×2 (20:37)
[2017-08-16] MEDS: PYRIDOXINE HCL 50 MG TABLET GT SCH (21:31)
--- NOTE | 2017-08-16 21:33 | NUR ---
RN NOTES UNABLE TO ADMINISTER THE FOLLOWING MEDICATIONS ULTRAM, NEURONTIN, RENVELA, VIT B6 DUE TO PATIENT'S NPO STATUS.
[2017-08-17] VITALS (7 sets, daily range): BP systolic 134–159; BP diastolic 64–97
[2017-08-17] MEDS: BLOOD SUGAR DIAGNOSTIC 1 EACH STRIP IN SCH ×4 (00:58→18:23)
[2017-08-17] MEDS: INSULIN REGULAR, HUMAN 100 UNIT/ML 3 ML VIAL SQ PRN ×3 (00:59→11:37)
[2017-08-17] MEDS: METRONIDAZOLE 500MG/ NS 100ML 500 MG in PREMIX 1 EA IV SCH ×3 (01:02→16:55)
[2017-08-17 06:29] LABS: BASOPHILS % (AUTO) 0.3 % (0.0-2.0); EOSINOPHILS # (AUTO) 0.1 /CMM (0.0-0.7); EOSINOPHILS % (AUTO) 3.9 % (0.0-6.0); HEMATOCRIT 26 % (39-51); HEMOGLOBIN 8.8 g/dL (13.5-17.5); LYMPHOCYTES # (AUTO) 0.3 /CMM (0.8-4.8); LYMPHOCYTES % (AUTO) 12.9 % (20.0-44.0); MEAN CORPUSCULAR HEMOGLOBIN 32 PG (26.0-33.0); MEAN CORPUSCULAR HGB CONC 34 g/dl (31.0-36.0); MEAN CORPUSCULAR VOLUME 92 fL (80-96); MONOCYTES # (AUTO) 0.3 /CMM (0.1-1.30); MONOCYTES % (AUTO) 11.7 % (2.0-12.0); NEUTROPHILS # (AUTO) 1.8 /CMM (1.8-8.9); NEUTROPHILS % (AUTO) 71.2 % (43.0-81.0); RED BLOOD CELL COUNT(AUTO) 2.76 MIL/uL (4.5-6.0); WHITE BLOOD COUNT (AUTO) 2.5 K/uL (4.3-11.0)
[2017-08-17 06:42] LABS: PLATELET COUNT (AUTO) 35 /CMM (150-450)
--- NOTE | 2017-08-17 07:01 | NUR ---
RN CLOSING NOTES RESTING COMFORTABLY IN BED WITH NO DISTRESS NOTED. REMAINS NPO. GT DRAINAGE NOTED. NO PHYSICAL MANIFESTATION OF PAIN OR DISCOMFORT. LABS CALLED FOR CRITICAL LEVEL OF PLATELET 35. WILL ENDORSE TO AM SHIFT FOR CONTINUITY OF CARE.
--- NOTE | 2017-08-17 08:00 | NUR ---
SCIENTIFIC GLASS BLOWER INITIAL NOTE RN RECEIVED PT IN BED ALERT AND ORIENTED TO SELF AND SURROUNDING VENEZUELAN SPEAKING. PT IS VENT/ TRACH DEPENDENT AC SETTING TOLERATING CURRENT VENT SETTINGS WELL. NO DISTRESS NOTED. PT HAS A COLOSTOMY BAG OVER G/TUBE SITE WITH SMALL AMOUNT GREEN BILE DRAINAGE. MD ANDS CHARGE NURSE AWARE. PT IS A DIALYSIS PT,HD SCHEDULED TODAY. PT HAS A MULTIPLE SKIN ISSUES PRESENT. RN WILL CONTINUE TO MONITOR AND FOLLOW THE PATIENT THROUGHOUT THE DAY
[2017-08-17] MEDS: PROSOURCE / PROSTAT (PYXIS) 30 ML UDC GT SCH (09:00)
[2017-08-17] MEDS: LACTOBACILLUS RHAMNOSUS GG 1 EACH CAP.SPRINK GT SCH ×2 (09:00→16:27)
[2017-08-17] MEDS: FOLIC ACID 1 MG TABLET GT SCH (09:00)
[2017-08-17] MEDS: GABAPENTIN 100 MG CAPSULE GT SCH ×2 (09:00→20:36)
[2017-08-17] MEDS: SEVELAMER CARBONATE 0.8 GM POWD.PACK GT SCH ×3 (09:00→20:36)
[2017-08-17] MEDS: ZINC SULFATE 220 MG CAPSULE GT SCH (09:00)
[2017-08-17] MEDS: PANTOPRAZOLE 40 MG/PACK PACK GT SCH (09:00)
[2017-08-17] MEDS: TRAMADOL HCL 50 MG TABLET GT SCH ×2 (09:00→20:37)
[2017-08-17] MEDS: VIT B CMPLX 3/FA/VIT C/BIOTIN 1 TAB TABLET GT SCH (09:00)
[2017-08-17] MEDS: HYDROGEL DRESSING 90 GM TUBE TP SCH (09:43)
[2017-08-17] MEDS: LEVETIRACETAM (500MG) 500 MG in IV NS 0.9% 100 ML IV SCH ×2 (09:49→21:21)
[2017-08-17] MEDS: Z GUARD REMEDY 2 OZ OINT TP SCH (09:49)
[2017-08-17] MEDS: BACITRACIN/POLYMYXIN B 15 GM TUBE TP SCH ×3 (09:49→16:38)
[2017-08-17 11:41] LABS: LYMPHOCYTES % (MANUAL) 6 % (16-48); MONOCYTES % (MANUAL) 3 % (0-11.0); NEUTROPHILS % (MANUAL) 91 (42-76)
[2017-08-17] MEDS ORDERED: TPN/PPN PER PHARMACY XX PRN (12:00)
[2017-08-17] MEDS ORDERED: IV D5/ 0.9% NACL 1,000 ML IV PRN (12:00)
[2017-08-17] MEDS: PANTOPRAZOLE 40 MG VIAL IV SCH (12:35)
[2017-08-17] MEDS ORDERED: FEE TPN 1 MIN EA MC ONE (13:26)
--- NOTE | 2017-08-17 15:00 | NUR ---
RN NOTE PATIENT UPDATED ON THE PLAN OF CARE PICC LINE ORDER TPN TREATMENT TO BEGIN ONCE PICC LINE ACCESS RECEIVED , RN ORDERED TO STOP D10 ONCE TPN IS BEGAN , PATIENT STABLE AT THIS TIME RN WILL CONTINUE TO FOLLOW
[2017-08-17] MEDS: diphenhydrAMINE HCL 50 MG/ML VIAL IV PRN (16:28)
[2017-08-17] MEDS ORDERED: TPN BAG #1 IV PRN ×6 (18:00)
--- NOTE | 2017-08-17 19:30 | NUR ---
RN INITIAL NOTES RECEIVED PATIENT IN BED WITH EYE CLOSE, AROUSABLE TO NAME, SOMETIMES NODS. TRACH MIDLINE AND INTACT, PNM MECHANICAL VENT AT PRESCRIBED SETTINGS, TOELRATING WELL, FREE FROM ANY S/S OF RESPIRATORY DISTRESS. GT REMAINS INTACT, BUT COVERED WITH COLOSTOMY BAG DUE TO LEAKAGE, NOTED WITH GREEN COLORED OUTPUT FROM GT SITE DESPITE GT IN PLACE. WILL CLOSELY MONITOR OUTPUT. NOTED WITH JOANN MIDLINE, PATENT AND INTACT, PATIENT TO HAVE PICC INSERTED, AND WILL START ON TPN WHEN PICC IN PLACE. CALLED HAND PAINT MIXER JENARO TO FOLLOW UP WITH PICC LINE INSERTION. PER JENARO, THE PICC LINE NURSE WILL ARRIVE AFTER 2200. WILL CONTINUE TO CLOSELY MONITOR. BED IN LOWEST AND LOCKED POSITION, HOB KEPT SLIGHTLY ELEVATED FOR ASPIRATION PRECAUTIONS.
--- NOTE | 2017-08-17 19:42 | NUR ---
RN NOTE RN CONTACTED PHARMACY FOR VANCOMYCIN TO ADMINISTER POST HD , PHARMACY STATES THEY WILL SEND FOR ADMINISTRATION PM RN NOTIFIED AND WILL ADMINSTER ONCE VANCOMYCIN IS AVAILABLE ,
--- NOTE | 2017-08-17 19:49 | NUR ---
RN CLOSING NOTE PATIENT STABLE THROUGHOUT THE DAY PATIENT RECEIVED HD TODAY PATIENT TOLERATED WELL NO ISSUES , PATIENT NEEDS ATTENDED PATIENT TURNED AND REPOSITIONED Q 2HRS PT MEDICATION HELD DUE TO NPO STATUS , CHARGE NURSE AND PHARMACY NOTIFIED RN PICC LINE ORDERED FOR TPN RN AWAITING PICC L;INE PLACEMENT RN CONTACTED NURSE METROLOGY MANAGER JOHNSON FOR UPDATED ON PICC LINE SHE STATES THE PICC LINE RN IS ON THE WAY . RN WILL ENDORSE CARE TO PM RN ,
[2017-08-17] MEDS: FLUCONAZOLE IN NS 100 MG in PREMIX 1 EA IV SCH ×2 (20:09)
[2017-08-17] MEDS: PYRIDOXINE HCL 50 MG TABLET GT SCH (21:19)
--- NOTE | 2017-08-18 | NUR ---
RN NOTES - PICC INSERTION NURSE JOSE ALBERTO AT BEDSIDE WITH STUDENT TO INSERT PICC LINE, WILL INITIATE ON TPN WHEN LINE PLACEMENT IS CONFIRMED.
[2017-08-18] MEDS: BLOOD SUGAR DIAGNOSTIC 1 EACH STRIP IN SCH ×5 (01:05→23:27)
--- NOTE | 2017-08-18 01:25 | NUR ---
RN NOTES CXR CONFIRMS PICC IN PLACE, RECEIVED CALL FROM NURSE ABRAMS THAT PICC LINE IS OKAY TO USE. TPN INITIATED, ORDERS VERIFIED WITH MYSELF AND CHARGE NURSE MARIO.
[2017-08-18] MEDS: METRONIDAZOLE 500MG/ NS 100ML 500 MG in PREMIX 1 EA IV SCH ×3 (01:32→18:44)
[2017-08-18] MEDS: INSULIN REGULAR, HUMAN 100 UNIT/ML 3 ML VIAL SQ PRN ×3 (01:41→18:41)
[2017-08-18] MEDS: VANCOMYCIN 500 MG in IV D5W 100 ML IV PRN (02:57)
[2017-08-18 04:00] VITALS: BP 172/72
[2017-08-18] MEDS: LORAZEPAM INJ 2 MG/ML VIAL IV PRN ×2 (04:42→11:04)
[2017-08-18 07:08] LABS: BASOPHILS % (AUTO) 0.8 % (0.0-2.0); EOSINOPHILS # (AUTO) 0.1 /CMM (0.0-0.7); EOSINOPHILS % (AUTO) 4.4 % (0.0-6.0); HEMATOCRIT 25 % (39-51); HEMOGLOBIN 8.6 g/dL (13.5-17.5); LYMPHOCYTES # (AUTO) 0.3 /CMM (0.8-4.8); LYMPHOCYTES % (AUTO) 13.7 % (20.0-44.0); MEAN CORPUSCULAR HEMOGLOBIN 32 PG (26.0-33.0); MEAN CORPUSCULAR HGB CONC 35 g/dl (31.0-36.0); MEAN CORPUSCULAR VOLUME 92 fL (80-96); MONOCYTES # (AUTO) 0.2 /CMM (0.1-1.30); MONOCYTES % (AUTO) 8.3 % (2.0-12.0); NEUTROPHILS # (AUTO) 1.5 /CMM (1.8-8.9); NEUTROPHILS % (AUTO) 72.8 % (43.0-81.0); RED BLOOD CELL COUNT(AUTO) 2.71 MIL/uL (4.5-6.0)
--- NOTE | 2017-08-18 07:11 | NUR ---
RN CLOSING NOTES PATIENT RESTING IN BED, APPEARS COMFORTABLE. PATIENT ENDORSED TO THE AM SHIFT NURSE FOR KRYS, CONTINUES ON TPN, TOLERATING WELL.
[2017-08-18 07:20] LABS: CREATININE 3.7 mg/dL (0.6-1.3); MAGNESIUM 1.9 mg/dL (1.8-2.4)
[2017-08-18 07:22] LABS: POTASSIUM 2.8 mmol/L (3.5-5.1)
--- NOTE | 2017-08-18 07:29 | NUR ---
RN INITIAL NOTES RECEIVED PATIENT IN BED ALERT AND AROUSABLE TO NAME, PATIENT CURRENTLY RECIEVING HD , PATIENT GRETS TEETH WHEN TRYING TO EXPRESS NEEDS AND ALSO BLINKS FOR RESPONSE. TRACH AND MECHANICAL VENT AT PRESCRIBED SETTINGS, PT TOLERATING SETTINGS WELL, FREE FROM ANY S/S OF RESPIRATORY DISTRESS. GT REMAINS INTACT WITH COLOSTOMY BAG COVERING DUE TO DRAINAGE, NOTED SMALL AMOUNT OF GREEN COLORED OUTPUT FROM GT SITE. RN WILL CLOSELY MONITOR OUTPUT. LEFT UPPER ARM PICC LINE, PATENT AND INTACT, TPN CURRENTLY INFUSING. RN WILL CONTINUE TO MONITOR THROUGHOUT THE DAY. PT BED IN LOWEST AND LOCKED POSITION, CRISTIAN RUBIO WITHIN [facility] HD NURSE IN ROOM WITH PATIENT CURRENTLY
[2017-08-18 07:36] LABS: PLATELET COUNT (AUTO) 35 /CMM (150-450)
[2017-08-18 08:00] VITALS: BP_SYST 172; BP_SYST 176; BP_DIAS 72
--- NOTE | 2017-08-18 08:01 | NUR ---
RN NOTE PATIENT AMIKACIN / VAN TROUGH NOT DRAWN PRIOR TO HD STARTING TODAY RN CONTACTED LAB TO ADD ON VANC TROUGH FROM AM LABS , RN CONTACTED PHARMACY IN REGARDS TO THIS ISSUE . PHARMACY ADVISED RN TO FOLLOW YESTERDAY LABS FOR AMIKACIN. NO AMIKACIN WILL BE ADMINISTERED DUE TO YESTERDAY LEVEL ELEVATED AT A 12. RN NOTIFIED CHARGE NURSE OF THIS ISSUE , CHARGE NURSE NOLVIA STREETER
[2017-08-18 08:14] LABS: BAND % (MANUAL) 3 % (0.0-5.0); EOSINOPHILS % (MANUAL) 9 % (0-4); LYMPHOCYTES % (MANUAL) 9 % (16-48); MONOCYTES % (MANUAL) 8 % (0-11.0); NEUTROPHILS % (MANUAL) 71 (42-76)
[2017-08-18] MEDS: LACTOBACILLUS RHAMNOSUS GG 1 EACH CAP.SPRINK GT SCH ×2 (09:00→16:24)
[2017-08-18] MEDS: TRAMADOL HCL 50 MG TABLET GT SCH ×3 (09:00→22:09)
[2017-08-18] MEDS: SEVELAMER CARBONATE 0.8 GM POWD.PACK GT SCH ×4 (09:00→22:09)
[2017-08-18] MEDS: ZINC SULFATE 220 MG CAPSULE GT SCH (09:00)
[2017-08-18] MEDS: FOLIC ACID 1 MG TABLET GT SCH (09:00)
[2017-08-18] MEDS: PROSOURCE / PROSTAT (PYXIS) 30 ML UDC GT SCH (09:00)
[2017-08-18] MEDS: GABAPENTIN 100 MG CAPSULE GT SCH ×3 (09:00→22:08)
[2017-08-18] MEDS: VIT B CMPLX 3/FA/VIT C/BIOTIN 1 TAB TABLET GT SCH (09:00)
[2017-08-18] MEDS: diphenhydrAMINE HCL 50 MG/ML VIAL IV PRN (09:03)
[2017-08-18] MEDS: HYDROGEL DRESSING 90 GM TUBE TP SCH (09:13)
[2017-08-18] MEDS: BACITRACIN/POLYMYXIN B 15 GM TUBE TP SCH ×3 (09:14→16:24)
[2017-08-18] MEDS: Z GUARD REMEDY 2 OZ OINT TP SCH (09:14)
[2017-08-18] MEDS: LEVETIRACETAM (500MG) 500 MG in IV NS 0.9% 100 ML IV SCH ×2 (09:15→22:10)
[2017-08-18] MEDS: PANTOPRAZOLE 40 MG VIAL IV SCH (11:04)
[2017-08-18 12:00] VITALS: BP 187/79
--- NOTE | 2017-08-18 12:46 | NUR ---
RN NOTE PATIENT BLOOD PRESSURE HAS BEEN ELEVATED SINCE THIS AM PATIENT HAS BE DIALYZED HOWEVER LITTLE TO NO CHANGE IN B/P PATIENT COMPLAINED OF ITCHING BENADRYL ADMINISTERED , PATIENT ALSO WITNESSED GIRTING TEETH REPEATEDLY RN ADMINISTERED ATIVAN FOR POSSIBLE AGITATION PATIENT HAS ALSO BEEN TURN AND REPOSITIONED Q 2HRS AND BED BATH PERFORMED, ALONG WITH ALL LINEN CHANGED FOR COMFORT. RN PAGED MD SCHWARTZ TO INFORM OF ELEVATION , MD VELA IS FINANCIAL REPRESENTATIVE RN AWAITING RETURN PHONE CALL. RN WILL CONTINUE TO FOLLOW
[2017-08-18 14:00] VITALS: BP 183/75
[2017-08-18] MEDS ORDERED: TPN BAG #2 IV PRN ×6 (14:00)
[2017-08-18] MEDS: CLONIDINE HCL 0.1MG/24H PTWK 1 EA PATCH TD SCH (15:39)
[2017-08-18 16:00] VITALS: BP 183/75
--- NOTE | 2017-08-18 16:48 | NUR ---
RN NOTE RN SPOKE WITH PHARMACY IN REGARDS AVNI THE PHARMACY NOTED THAT SHE WOULD LIKE PATIENT TO RECEIVE AMIKACIN FOR TODAY NO NEW LAB DRAWN TODAY PRIOR TO HD , HOWEVER RN ADVISED TO RUN AMIKACIN. RN ACKNOWLEDGED AND WILL BEGIN AMIKACIN ORDERED. CHARGE NURSE NOLVIA NOTIFIED
[2017-08-18] MEDS: AMIKACIN 500 MG in IV D5W 100 ML IV PRN (16:54)
--- NOTE | 2017-08-18 18:54 | NUR ---
N CLOSING NOTE PATIENT STABLE THROUGHOUT THE DAY PATIENT RECEIVED HD TODAY PATIENT TOLERATED WELL NO ISSUES , PATIENT NEEDS ATTENDED PATIENT TURNED AND REPOSITIONED Q 2HRS PT MEDICATION HELD DUE TO NPO STATUS , CHARGE NURSE AND PHARMACY NOTIFIED PATIENT CALL LIGHT WITHIN REACH ,RN WILL ENDORSE CARE TO PM RN
[2017-08-18 20:00] VITALS: BP 138/74
--- NOTE | 2017-08-18 20:00 | NUR ---
RN NOTE. INITIAL ASSESSMENT. RECEIVED THE PT REST ON THE BED. AWAKE, ALERT, NONVERBAL.TRACH TO VENT CONNECTED. LEASE PICKER SHOWING NSR. NPO. GT SITE LEAKING. COLOSTOMY BAG PLACED FOR GT SITE. IV LT UPPER ARM PICC LINE. IV TPN 50ML/H. HOB ELEVATEDTURN AND REPOSITION Q2H. WILL CONTINUE TO MONITOR VITALS.
[2017-08-18] MEDS: PYRIDOXINE HCL 50 MG TABLET GT SCH ×2 (22:00→22:08)
[2017-08-18] MEDS: FLUCONAZOLE IN NS 100 MG in PREMIX 1 EA IV SCH ×2 (22:08)
[2017-08-19] VITALS (9 sets, daily range): BP systolic 121–172; BP diastolic 65–88
[2017-08-19] MEDS: METRONIDAZOLE 500MG/ NS 100ML 500 MG in PREMIX 1 EA IV SCH ×3 (01:29→19:04)
--- NOTE | 2017-08-19 03:42 | NUR ---
RN NOTE AM CARE. ORAL CARE, BED BATH GIVEN. LINEN CHANGED. REMAINING SAME VENT SETTING TOLERATED WELL. SAT 98%. POUNCING MACHINE OPERATOR SHOWING NSR. IV LT UPPER ARM PICC LINE IV TPN 50ML/H. GT INTACT. HOB ELEVATED, TURN AND REPOSITION Q2H. WILL CONTINUE TO MONITOR VITALS.
[2017-08-19] MEDS: BLOOD SUGAR DIAGNOSTIC 1 EACH STRIP IN SCH ×3 (05:33→17:30)
[2017-08-19] MEDS: INSULIN REGULAR, HUMAN 100 UNIT/ML 3 ML VIAL SQ PRN ×3 (05:36→17:29)
--- NOTE | 2017-08-19 07:37 | NUR ---
RN INITIAL NOTES RECEIVED PATIENT IN BED SLEEPING , TRACH AND MECHANICAL VENT AT PRESCRIBED SETTINGS, PT TOLERATING SETTINGS WELL, FREE FROM ANY S/S OF RESPIRATORY DISTRESS. GT REMAINS INTACT WITH COLOSTOMY BAG COVERING DUE TO DRAINAGE, NOTED SMALL AMOUNT OF GREEN COLORED OUTPUT FROM GT SITE. RN WILL CLOSELY MONITOR OUTPUT. LEFT UPPER ARM PICC LINE, PATENT AND INTACT, TPN CURRENTLY INFUSING 2ND BAG . RN WILL CONTINUE TO MONITOR THROUGHOUT THE DAY. PT BED IN LOWEST AND LOCKED POSITION, CALL LIGHT WITHIN REACH AM RANDOM VANC TROUGH AND AMIKACIN LEVEL ORDER
[2017-08-19 07:53] LABS: BASOPHILS % (AUTO) 0.8 % (0.0-2.0); EOSINOPHILS # (AUTO) 0.1 /CMM (0.0-0.7); EOSINOPHILS % (AUTO) 3.2 % (0.0-6.0); HEMATOCRIT 23 % (39-51); HEMOGLOBIN 7.8 g/dL (13.5-17.5); LYMPHOCYTES # (AUTO) 0.2 /CMM (0.8-4.8); LYMPHOCYTES % (AUTO) 13.2 % (20.0-44.0); MEAN CORPUSCULAR HEMOGLOBIN 32 PG (26.0-33.0); MEAN CORPUSCULAR HGB CONC 35 g/dl (31.0-36.0); MEAN CORPUSCULAR VOLUME 92 fL (80-96); MONOCYTES # (AUTO) 0.1 /CMM (0.1-1.30); MONOCYTES % (AUTO) 8.8 % (2.0-12.0); NEUTROPHILS # (AUTO) 1.2 /CMM (1.8-8.9); RDW COEFFICIENT OF VARIATION 18.4 (11.5-15.0); RED BLOOD CELL COUNT(AUTO) 2.45 MIL/uL (4.5-6.0)
[2017-08-19 08:00] LABS: CALCIUM, SERUM 7.7 mg/dL (8.5-10.1); CREATININE 3.8 mg/dL (0.6-1.3); MAGNESIUM 1.7 mg/dL (1.8-2.4); PHOSPHORUS 2.5 mg/dL (2.5-4.9)
[2017-08-19 08:02] LABS: POTASSIUM 2.5 mmol/L (3.5-5.1)
[2017-08-19 08:09] LABS: PLATELET COUNT (AUTO) 33 /CMM (150-450); WHITE BLOOD COUNT (AUTO) 1.6 K/uL (4.3-11.0)
[2017-08-19] MEDS: LEVETIRACETAM (500MG) 500 MG in IV NS 0.9% 100 ML IV SCH ×2 (08:50→21:12)
[2017-08-19] MEDS: BACITRACIN/POLYMYXIN B 15 GM TUBE TP SCH ×3 (08:51→17:30)
[2017-08-19] MEDS: Z GUARD REMEDY 2 OZ OINT TP SCH (08:51)
[2017-08-19] MEDS: HYDROGEL DRESSING 90 GM TUBE TP SCH (08:51)
[2017-08-19] MEDS: FOLIC ACID 1 MG TABLET GT SCH (08:52)
[2017-08-19] MEDS: LACTOBACILLUS RHAMNOSUS GG 1 EACH CAP.SPRINK GT SCH ×2 (08:52→17:00)
[2017-08-19] MEDS: VIT B CMPLX 3/FA/VIT C/BIOTIN 1 TAB TABLET GT SCH (09:00)
[2017-08-19] MEDS: ZINC SULFATE 220 MG CAPSULE GT SCH (09:00)
[2017-08-19] MEDS: SEVELAMER CARBONATE 0.8 GM POWD.PACK GT SCH ×3 (09:00→20:23)
[2017-08-19] MEDS: GABAPENTIN 100 MG CAPSULE GT SCH ×2 (09:00→20:23)
[2017-08-19] MEDS: TRAMADOL HCL 50 MG TABLET GT SCH ×2 (09:00→20:23)
[2017-08-19] MEDS: PROSOURCE / PROSTAT (PYXIS) 30 ML UDC GT SCH (09:00)
[2017-08-19 10:34] LABS: LYMPHOCYTES % (MANUAL) 11 % (16-48); MONOCYTES % (MANUAL) 5 % (0-11.0); NEUTROPHILS % (MANUAL) 84 (42-76)
[2017-08-19] MEDS: PANTOPRAZOLE 40 MG VIAL IV SCH (11:11)
--- NOTE | 2017-08-19 11:37 | NUR ---
RN NOTE RN SPOKE WITH PHARMACY IN REGARDS TO RUNNING THE POTASSIUM AND MAG ON THE PATIENTS CURRENT PICC LINE ALONG WITH THE TPN , PHARMACY STATES THAT RN IS OK TO ADMINISTER MAGNESIUM , POTASSIUM AND TPN THROUGH THE PICC LINE ALL AT ONCE PER [facility] , RN WILL FOLLOW. RN ALSO TO ADMINISTER ATIVAN FOR AGITATION AND ALSO PAIN PENDING FURTHER ORDERS FOR MTHE PATIENT MD MD VELA. RN PAGE FOR PRN PAIN MEDICATION VIA IV PER FAMILY REQUEST PATIENT EXPRESSES PAIN AT THIS TIME
[2017-08-19] MEDS: POTASSIUM CL. PREMIX PERIPHER. 50 ML IV SCH ×6 (11:45→19:05)
[2017-08-19] MEDS: LORAZEPAM INJ 2 MG/ML VIAL IV PRN (11:45)
[2017-08-19] MEDS: Magnesium 1GM/D5W 100ML PREMIX 100 ML IV SCH ×2 (11:45→13:34)
[2017-08-19] MEDS ORDERED: TPN BAG #3 IV PRN ×8 (12:00)
[2017-08-19] MEDS: diphenhydrAMINE HCL 50 MG/ML VIAL IV PRN (16:37)
--- NOTE | 2017-08-19 18:46 | NUR ---
RN CLOSING NOTE PATIENT STABLE THROUGHOUT THE DAY , PATIENT NEEDS ATTENDED PATIENT TURNED AND REPOSITIONED Q 2HRS PT MEDICATION HELD DUE TO NPO STATUS , CHARGE NURSE AND PHARMACY NOTIFIED PATIENT CALL LIGHT WITHIN REACH ,RN WILL ENDORSE CARE TO PM RN, PATIENT PLACED ON REVERSE CONTACT ISOLATION
[2017-08-19] MEDS: FLUCONAZOLE IN NS 100 MG in PREMIX 1 EA IV SCH ×2 (20:17)
--- NOTE | 2017-08-19 20:53 | NUR ---
received pt from day shift, alert, does not follow commands, SR, on the vent, lungs congested, non pitting edema throughout, on TPN, there is colostomy bag covering GT stoma, anuric HD pt, v/s stable, no pain, pt turned and repositioned.
[2017-08-19] MEDS: PYRIDOXINE HCL 50 MG TABLET GT SCH (21:12)
[2017-08-20] VITALS: BP 153/89
[2017-08-20] MEDS: BLOOD SUGAR DIAGNOSTIC 1 EACH STRIP IN SCH ×4 (00:46→17:26)
[2017-08-20] MEDS: METRONIDAZOLE 500MG/ NS 100ML 500 MG in PREMIX 1 EA IV SCH ×3 (01:47→18:34)
[2017-08-20 04:00] VITALS: BP 139/83
--- NOTE | 2017-08-20 04:15 | NUR ---
pt is resting in the bed, no acute distress overnight, v/s stable, no pain, pt cleaned, changed and repositioned q2hrs.
[2017-08-20] MEDS: INSULIN REGULAR, HUMAN 100 UNIT/ML 3 ML VIAL SQ PRN ×3 (05:39→17:30)
[2017-08-20 06:52] LABS: BASOPHILS # (AUTO) 0.1 /CMM (0.0-0.2); BASOPHILS % (AUTO) 2.2 % (0.0-2.0); EOSINOPHILS % (AUTO) 1.3 % (0.0-6.0); HEMATOCRIT 24 % (39-51); HEMOGLOBIN 8.1 g/dL (13.5-17.5); LYMPHOCYTES # (AUTO) 0.1 /CMM (0.8-4.8); LYMPHOCYTES % (AUTO) 5.5 % (20.0-44.0); MEAN CORPUSCULAR HEMOGLOBIN 32 PG (26.0-33.0); MEAN CORPUSCULAR HGB CONC 34 g/dl (31.0-36.0); MEAN CORPUSCULAR VOLUME 93 fL (80-96); MONOCYTES # (AUTO) 0.1 /CMM (0.1-1.30); MONOCYTES % (AUTO) 4.1 % (2.0-12.0); NEUTROPHILS # (AUTO) 2.4 /CMM (1.8-8.9); NEUTROPHILS % (AUTO) 86.9 % (43.0-81.0); RDW COEFFICIENT OF VARIATION 19.1 (11.5-15.0); RED BLOOD CELL COUNT(AUTO) 2.55 MIL/uL (4.5-6.0); WHITE BLOOD COUNT (AUTO) 2.7 K/uL (4.3-11.0)
[2017-08-20 07:16] LABS: CREATININE 4.3 mg/dL (0.6-1.3); MAGNESIUM 2.2 mg/dL (1.8-2.4); PHOSPHORUS 6.8 mg/dL (2.5-4.9)
[2017-08-20 08:00] VITALS: BP_SYST 163; BP_SYST 168; BP_DIAS 102; BP_DIAS 72
--- NOTE | 2017-08-20 08:00 | NUR ---
RN INITIAL NOTES REPORT GIVEN BY ISRAEL AYALA. REC'D PT ON BED, NOT IN ANY DISTRESS. ON TRACH VIA VENT, SATURATING AT 100%. ON TELEMONITOR, SR W/ HR 78 BPM. HAS RCW HD CATH IN PLACE AND INTACT. HAS JOANN PICC LINE W/ TPN X 50 CC/HR INFUSING WELL. HAS GT CLAMPED W/, TUBE OUT, W/ COLOSTOMY BAG IN PLACE. PROVIDED COMFORT & SAFETY MEASURES. BED KEPT LOW & IN LOCKED POS. CALL LIGHT W/IN REACH. WILL CONTINUE TO MONITOR & ATTEND PT NEEDS.
[2017-08-20 08:04] LABS: PLATELET COUNT (AUTO) 39 /CMM (150-450)
[2017-08-20] MEDS ORDERED: TPN BAG #4 IV PRN ×16 (08:30→10:25)
[2017-08-20] MEDS: TRAMADOL HCL 50 MG TABLET GT SCH ×3 (08:47→21:00)
[2017-08-20] MEDS: FOLIC ACID 1 MG TABLET GT SCH (08:47)
[2017-08-20] MEDS: VIT B CMPLX 3/FA/VIT C/BIOTIN 1 TAB TABLET GT SCH (08:47)
[2017-08-20] MEDS: ZINC SULFATE 220 MG CAPSULE GT SCH (08:47)
[2017-08-20] MEDS: GABAPENTIN 100 MG CAPSULE GT SCH ×3 (08:47→21:00)
[2017-08-20] MEDS: SEVELAMER CARBONATE 0.8 GM POWD.PACK GT SCH ×4 (08:47→21:00)
[2017-08-20] MEDS: PROSOURCE / PROSTAT (PYXIS) 30 ML UDC GT SCH (08:47)
[2017-08-20] MEDS: LACTOBACILLUS RHAMNOSUS GG 1 EACH CAP.SPRINK GT SCH ×2 (08:47→17:00)
[2017-08-20] MEDS: HYDROGEL DRESSING 90 GM TUBE TP SCH (08:49)
[2017-08-20] MEDS: Z GUARD REMEDY 2 OZ OINT TP SCH (08:49)
[2017-08-20] MEDS: LEVETIRACETAM (500MG) 500 MG in IV NS 0.9% 100 ML IV SCH ×2 (08:49→21:45)
[2017-08-20] MEDS: BACITRACIN/POLYMYXIN B 15 GM TUBE TP SCH ×3 (08:50→17:27)
[2017-08-20] MEDS: POLYVINYL ALCOHOL 15 ML BOTTLE EACHEYE PRN (08:51)
[2017-08-20 09:59] LABS: BAND % (MANUAL) 3 % (0.0-5.0); EOSINOPHILS % (MANUAL) 2 % (0-4); LYMPHOCYTES % (MANUAL) 3 % (16-48); MONOCYTES % (MANUAL) 2 % (0-11.0); NEUTROPHILS % (MANUAL) 90 (42-76)
[2017-08-20] MEDS ORDERED: EPOETIN ALFA (10,000 UNIT) 10,000 UNIT/ML VIAL SQ ONE (11:00)
[2017-08-20 12:00] VITALS: BP_SYST 178; BP_SYST 183; BP_DIAS 70; BP_DIAS 75
[2017-08-20] MEDS: PANTOPRAZOLE 40 MG VIAL IV SCH (12:03)
[2017-08-20] MEDS ORDERED: IV NS 0.9% 1,000 ML IV ONE (14:00)
[2017-08-20 16:00] VITALS: BP 174/54
[2017-08-20] MEDS: VANCOMYCIN 500 MG in IV D5W 100 ML IV PRN (17:30)
--- NOTE | 2017-08-20 19:00 | NUR ---
RN CLOSING NOTES NO ACUTE CHANGES NOTED W/IN SHIFT. PT TOLERATED TRACH VIA VENT, SATURATING AT 100%. ON TELEMONITOR, STILL SR. RCW HD CATH KEPT IN PLACE AND INTACT. JOANN PICC LINE W/ TPN #4 X 50 CC/HR INFUSING WELL. HAS GT STILL CLAMPED, TUBE OUT, W/ COLOSTOMY BAG IN PLACE, 10CC DRAINAGE. PT SEEN & EXAMINED BY JERONIMO OLIVER. SECRETIONS SUCTIONED. WOUND CARE DONE. KEPT WELL RESTED. BED KEPT LOW & IN LOCKED POS. CALL LIGHT W/IN REACH. ENDORSED TO PM RN FOR KRYS.
--- NOTE | 2017-08-20 19:30 | NUR ---
SHRIMPING BOAT CAPTAIN INITIAL NOTE PT RECEIVED RESTING IN BED. A/O X1 AND ABLE TO UNDERSTAND LITHUANIAN. ON MECH VENT WITH SETTINGS WELL TOLERATED AND SATURATING 100%. REVERSE ISOLATION PRECAUTIONS OBSERVED. HOB ELEVATED. IV JOANN PICC LINE CLEAN, INTACT WITH TPN RUNNING. R SUBCLAVIAN PERMA CATH IN PLACE AND CLEAN. LOWER EXTREMITIES OFFLOADED WITH PILLOWS. BED IN LOWEST POSITION AND LOCKED IN PLACE. CALL LIGHT WITHIN REACH. WILL CONTINUE TO MONITOR.
[2017-08-20 20:00] VITALS: BP 158/78
[2017-08-20] MEDS: FLUCONAZOLE IN NS 100 MG in PREMIX 1 EA IV SCH ×2 (20:55)
[2017-08-20] MEDS: PYRIDOXINE HCL 50 MG TABLET GT SCH (21:48)
[2017-08-21] VITALS: BP 143/79
[2017-08-21] MEDS: BLOOD SUGAR DIAGNOSTIC 1 EACH STRIP IN SCH ×4 (00:22→17:10)
[2017-08-21] MEDS: INSULIN REGULAR, HUMAN 100 UNIT/ML 3 ML VIAL SQ PRN ×4 (00:28→17:13)
[2017-08-21] MEDS: METRONIDAZOLE 500MG/ NS 100ML 500 MG in PREMIX 1 EA IV SCH ×3 (01:46→17:10)
[2017-08-21 04:00] VITALS: BP 137/85
[2017-08-21 06:38] LABS: BASOPHILS % (AUTO) 0.9 % (0.0-2.0); EOSINOPHILS # (AUTO) 0.1 /CMM (0.0-0.7); HEMATOCRIT 23 % (39-51); HEMOGLOBIN 7.6 g/dL (13.5-17.5); LYMPHOCYTES # (AUTO) 0.2 /CMM (0.8-4.8); LYMPHOCYTES % (AUTO) 12.8 % (20.0-44.0); MEAN CORPUSCULAR HEMOGLOBIN 32 PG (26.0-33.0); MEAN CORPUSCULAR HGB CONC 34 g/dl (31.0-36.0); MEAN CORPUSCULAR VOLUME 93 fL (80-96); MONOCYTES # (AUTO) 0.1 /CMM (0.1-1.30); NEUTROPHILS # (AUTO) 1.5 /CMM (1.8-8.9); NEUTROPHILS % (AUTO) 76.3 % (43.0-81.0); RDW COEFFICIENT OF VARIATION 19.6 (11.5-15.0); RED BLOOD CELL COUNT(AUTO) 2.41 MIL/uL (4.5-6.0)
--- NOTE | 2017-08-21 07:01 | NUR ---
STREET ENGINEER CLOSING NOTE PT REMAINED STABLE DURING SHIFT. NO ACUTE DISTRESS NOTED. VENT SETTINGS WELL TOLERATED. SUCTIONED NEEDED. REPOSITIONED Q2H. TPN WELL TOLERATED THROUGHOUT THE SHIFT. ALL NEEDS ATTENDED TO PROMPTLY. KEPT CLEAN AND DRY. CALL LIGHT WITHIN REACH. WILL ENDORSE TO NEXT SHIFT FOR CONTINUITY OF CARE.
[2017-08-21 07:03] LABS: CREATININE 3.9 mg/dL (0.6-1.3); PHOSPHORUS 1.8 mg/dL (2.5-4.9)
--- NOTE | 2017-08-21 07:30 | NUR ---
rn initial notes received pt in bed, djiboutian speaking, a/o x1,pt nods to yes or no questions, pt is on tele monitor showing sr in 60's, no c/o of distress or discomfort, pt is on [facility] vent portex #8 ac 16 tv 500 fio2 40% peep 0, sating well,no s/s of resp.distress or sob noted at this time, pt is noted with multiple skin issues, photos in chart, pt has stefani picc line, running tpn # 4 @ 50ml/hr, c/d/i/patent, flushing well, no s/s of infection/ infiltration noted at this time, r subclavian permacath, dressing c/d/i, pt has gtube, dislodged, leaking greenish yellow odor fluid, all safety measures in place at all times, call light within easy reach, all needs met at this time, will monitor pt closely for changes
[2017-08-21 07:57] LABS: PLATELET COUNT (AUTO) 35 /CMM (150-450)
[2017-08-21 08:00] VITALS: BP_SYST 127; BP_SYST 187; BP_DIAS 66
[2017-08-21] MEDS: VIT B CMPLX 3/FA/VIT C/BIOTIN 1 TAB TABLET GT SCH (08:09)
[2017-08-21] MEDS: PROSOURCE / PROSTAT (PYXIS) 30 ML UDC GT SCH (08:09)
[2017-08-21] MEDS: GABAPENTIN 100 MG CAPSULE GT SCH ×2 (08:09→21:00)
[2017-08-21] MEDS: SEVELAMER CARBONATE 0.8 GM POWD.PACK GT SCH ×3 (08:09→21:00)
[2017-08-21] MEDS: LACTOBACILLUS RHAMNOSUS GG 1 EACH CAP.SPRINK GT SCH ×2 (08:09→16:18)
[2017-08-21] MEDS: FOLIC ACID 1 MG TABLET GT SCH (08:09)
[2017-08-21] MEDS: ZINC SULFATE 220 MG CAPSULE GT SCH (08:10)
[2017-08-21] MEDS: TRAMADOL HCL 50 MG TABLET GT SCH ×2 (08:10→21:00)
--- NOTE | 2017-08-21 08:13 | NUR ---
RN NOTE UNABLE TO ADMINISTER GT MEDICATION, PT HAS NO GT AT THIS TIME
[2017-08-21] MEDS: LEVETIRACETAM (500MG) 500 MG in IV NS 0.9% 100 ML IV SCH ×2 (08:44→21:04)
[2017-08-21] MEDS: HYDROGEL DRESSING 90 GM TUBE TP SCH (08:46)
[2017-08-21] MEDS: POLYVINYL ALCOHOL 15 ML BOTTLE EACHEYE PRN (08:46)
[2017-08-21] MEDS: BACITRACIN/POLYMYXIN B 15 GM TUBE TP SCH ×3 (08:46→16:34)
[2017-08-21] MEDS: Z GUARD REMEDY 2 OZ OINT TP SCH (08:47)
--- NOTE | 2017-08-21 09:00 | NUR ---
rn note dr. barrett and gabby benton, ccnp student w/ dr. christian ribeiro made rounds, aware all of labs and results, no new orders at this time.
[2017-08-21 09:06] LABS: BAND % (MANUAL) 2 % (0.0-5.0); LYMPHOCYTES % (MANUAL) 6 % (16-48); MONOCYTES % (MANUAL) 5 % (0-11.0); NEUTROPHILS % (MANUAL) 87 (42-76)
[2017-08-21] MEDS ORDERED: TPN BAG #5 IV PRN ×8 (11:00)
[2017-08-21] MEDS: PANTOPRAZOLE 40 MG VIAL IV SCH (11:16)
[2017-08-21 12:00] VITALS: BP 176/69
[2017-08-21] MEDS ORDERED: TPN BAG #6 IV PRN ×8 (12:30)
--- NOTE | 2017-08-21 13:00 | NUR ---
rn note dr. ribeiro made rounds, aware of all labs and results, all new orders ack
[2017-08-21] MEDS ORDERED: Sodium Phosphate 15 MMOL in IV D5W 250 ML IV ONE (15:30)
[2017-08-21 16:00] VITALS: BP 169/61
[2017-08-21] MEDS ORDERED: POTASSIUM PHOSPHATE MM 15 MMOL in IV D5W 250 ML IV SCH (16:00)
[2017-08-21] MEDS: MORPHINE SULFATE INJ 2 MG/ML DISP.SYRIN IV PRN (17:48)
--- NOTE | 2017-08-21 18:11 | NUR ---
rn note all wound treatment carried out, all medications given, pt turned and repositioned, all orders carried out, pt kept clean and dry, gt tube site still leaking, picc line c/d/i/patent, flushing well, running tpn #5, all safety measures in place.
[2017-08-21] MEDS: LORAZEPAM INJ 2 MG/ML VIAL IV PRN (18:46)
--- NOTE | 2017-08-21 19:21 | NUR ---
rn note report given to pm rn for mark, pt resting comfortably.
[2017-08-21 20:00] VITALS: BP 147/72
[2017-08-21] MEDS: FLUCONAZOLE IN NS 100 MG in PREMIX 1 EA IV SCH ×2 (20:04)
[2017-08-21] MEDS: CEFEPIME 1 GM in IV D5W 50 ML IV SCH (20:30)
[2017-08-21] MEDS: PYRIDOXINE HCL 50 MG TABLET GT SCH (21:14)
--- NOTE | 2017-08-21 21:23 | NUR ---
RN NOTES RECEIVED PATIENT SLEEPING IN BED WITH NO RESPIRATORY DISTRESS OR SHORTNESS OF BREATH. BREATHING EVEN AND UNLABORED. NO PHYSICAL MANIFESTATION OF PAIN OR DISCOMFORT. TPN RUNNING ON LEFT UPPER ARM, PICC LINE PATENT. NO SWELLING OR REDNESS NOTED. UNABLE TO GIVE NUERONTIN, RANVELA, ULTRAM VIT B PATIENT IS NPO. WILL CONTINUE TO MONITOR.
[2017-08-22] VITALS: BP 181/71
[2017-08-22] MEDS: INSULIN REGULAR, HUMAN 100 UNIT/ML 3 ML VIAL SQ PRN ×4 (00:31→17:47)
[2017-08-22] MEDS: LORAZEPAM INJ 2 MG/ML VIAL IV PRN (00:45)
[2017-08-22] MEDS: BLOOD SUGAR DIAGNOSTIC 1 EACH STRIP IN SCH ×4 (00:47→17:45)
[2017-08-22] MEDS: METRONIDAZOLE 500MG/ NS 100ML 500 MG in PREMIX 1 EA IV SCH ×3 (01:32→17:36)
[2017-08-22 04:00] VITALS: BP 155/87
--- NOTE | 2017-08-22 07:15 | NUR ---
RN OPENING NOTES RECV'D REPORT FROM NOC RN. PT OBTUNDED. EYES OPEN. VENT TRACH 99% O2 SATS. HOB ELEVATED. SIDE RAILS UP X2. TPN RUNNING. RUC HD CATH. E PICC. RT ARM CHEMICAL BURN DRSG CDI. HEELS FLOATED. SR. GENERALIZED EDEMA. PLAN FOR HD TODAY. NEAR NURSES STATION. CALL LIGHT IN REACH. WILL CONT TO MONITOR.
--- NOTE | 2017-08-22 07:18 | NUR ---
RN NOTES RESIDENT SLEEPING COMFORTABLY IN BED WITH NO DISTRESS NOTED. OBSERVED TO HAVE LABORED BREATHING WHEN AWAKE. VITAL SIGNS WNL. O2SAT 100%. CHECKED AND EVALUATED BY RT WITH NO NEW RECOMMENDATION. GAVE ATIVAN FOR ANXIETY WITH HELP. KEPT CLEAN AND DRY. WILL ENDORSE TO AM SHIFT FOR CONTINUITY OF CARE
[2017-08-22 07:24] LABS: BASOPHILS % (AUTO) 0.5 % (0.0-2.0); EOSINOPHILS % (AUTO) 1.4 % (0.0-6.0); HEMATOCRIT 23 % (39-51); HEMOGLOBIN 7.9 g/dL (13.5-17.5); LYMPHOCYTES # (AUTO) 0.3 /CMM (0.8-4.8); LYMPHOCYTES % (AUTO) 13.2 % (20.0-44.0); MEAN CORPUSCULAR HEMOGLOBIN 32 PG (26.0-33.0); MEAN CORPUSCULAR HGB CONC 34 g/dl (31.0-36.0); MEAN CORPUSCULAR VOLUME 94 fL (80-96); MONOCYTES # (AUTO) 0.1 /CMM (0.1-1.30); NEUTROPHILS # (AUTO) 1.7 /CMM (1.8-8.9); NEUTROPHILS % (AUTO) 77.9 % (43.0-81.0); RDW COEFFICIENT OF VARIATION 20.3 (11.5-15.0); RED BLOOD CELL COUNT(AUTO) 2.48 MIL/uL (4.5-6.0); WHITE BLOOD COUNT (AUTO) 2.1 K/uL (4.3-11.0)
[2017-08-22 07:47] LABS: CALCIUM, SERUM 7.8 mg/dL (8.5-10.1); CREATININE 4.5 mg/dL (0.6-1.3); MAGNESIUM 1.9 mg/dL (1.8-2.4); PHOSPHORUS 2.7 mg/dL (2.5-4.9); POTASSIUM 3.2 mmol/L (3.5-5.1)
[2017-08-22 08:00] VITALS: BP 149/64
[2017-08-22 08:16] LABS: PLATELET COUNT (AUTO) 39 /CMM (150-450)
[2017-08-22 08:25] VITALS: BP 199/64
[2017-08-22] MEDS: LEVETIRACETAM (500MG) 500 MG in IV NS 0.9% 100 ML IV SCH ×2 (08:53→21:17)
[2017-08-22] MEDS: VIT B CMPLX 3/FA/VIT C/BIOTIN 1 TAB TABLET GT SCH (08:53)
[2017-08-22] MEDS: FOLIC ACID 1 MG TABLET GT SCH (08:53)
[2017-08-22] MEDS: LACTOBACILLUS RHAMNOSUS GG 1 EACH CAP.SPRINK GT SCH ×2 (08:53→17:00)
[2017-08-22] MEDS: HYDROGEL DRESSING 90 GM TUBE TP SCH (08:54)
[2017-08-22] MEDS: SEVELAMER CARBONATE 0.8 GM POWD.PACK GT SCH ×3 (08:54→20:20)
[2017-08-22] MEDS: TRAMADOL HCL 50 MG TABLET GT SCH ×2 (08:54→20:21)
[2017-08-22] MEDS: BACITRACIN/POLYMYXIN B 15 GM TUBE TP SCH ×3 (08:54→17:00)
[2017-08-22] MEDS: ZINC SULFATE 220 MG CAPSULE GT SCH (08:54)
[2017-08-22] MEDS: GABAPENTIN 100 MG CAPSULE GT SCH ×2 (08:54→20:21)
[2017-08-22] MEDS: PROSOURCE / PROSTAT (PYXIS) 30 ML UDC GT SCH (08:54)
[2017-08-22] MEDS: Z GUARD REMEDY 2 OZ OINT TP SCH (08:55)
[2017-08-22 12:15] LABS: BAND % (MANUAL) 1 % (0.0-5.0); EOSINOPHILS % (MANUAL) 3 % (0-4); LYMPHOCYTES % (MANUAL) 7 % (16-48); MONOCYTES % (MANUAL) 4 % (0-11.0); NEUTROPHILS % (MANUAL) 85 (42-76)
[2017-08-22] MEDS: PANTOPRAZOLE 40 MG VIAL IV SCH (13:00)
--- NOTE | 2017-08-22 13:38 | NUR ---
RN NOTES CRITICAL LAB VALUE AMIKACIN 11.3 MD AWARE DRUG HAS BEEN CHANGED TO CEFEPIME.
[2017-08-22] MEDS ORDERED: TPN BAG #7 IV PRN ×8 (14:00)
[2017-08-22 16:00] VITALS: BP 154/97
--- NOTE | 2017-08-22 18:00 | NUR ---
RN CLOSING NOTES PT OBTUNDED. EYES OPEN. VENT TRACH 99% O2 SATS. HOB ELEVATED. SIDE RAILS UP X2. TPN RUNNING. RUC HD CATH. LUE PICC. RT ARM CHEMICAL BURN DRSG CDI. HEELS FLOATED. SR. GENERALIZED EDEMA. HD DONE TODAY. NEAR NURSES STATION. CALL LIGHT IN REACH. WILL ENDORSE TO DYLAN AYALA.
[2017-08-22 20:00] VITALS: BP 140/64
[2017-08-22] MEDS: FLUCONAZOLE IN NS 100 MG in PREMIX 1 EA IV SCH ×2 (20:00)
[2017-08-22] MEDS: CEFEPIME 1 GM in IV D5W 50 ML IV SCH (20:19)
--- NOTE | 2017-08-22 20:22 | NUR ---
rn notes received patient awake in bed, noted with eye contact. able to answer yes or no question. In no apparent distress, breathing even and unlabored. PICC line patent with TPN aluminum fabrication supervisor tolerating well. Unable to administer Ultram, Neurontin, Renvela, Vit B6 as patient is still NPO. Kept clean and dry. Will continue to monitor.
[2017-08-22] MEDS: PYRIDOXINE HCL 50 MG TABLET GT SCH (22:00)
[2017-08-22] MEDS: MORPHINE SULFATE INJ 2 MG/ML DISP.SYRIN IV PRN (23:42)
[2017-08-23] VITALS (52 sets, daily range): BP systolic 122–186; BP diastolic 62–97
[2017-08-23] MEDS: LORAZEPAM INJ 2 MG/ML VIAL IV PRN ×3 (00:05→23:33)
[2017-08-23] MEDS ORDERED: hydrALAZINE HCL IV 20 MG VIAL ONE (00:18)
[2017-08-23] MEDS ORDERED: DILTIAZEM HCL 25 MG IV ONE (00:25)
[2017-08-23] MEDS ORDERED: hydrALAZINE HCL IV 20 MG VIAL IV ONE (00:30)
[2017-08-23] MEDS ORDERED: DILTIAZEM HCL 50 MG IV IV ONE (00:30)
[2017-08-23] MEDS ORDERED: IV NS 0.9% 1,000 ML BAG IV ONE (00:30)
[2017-08-23 00:40] LABS: ABG BASE EXCESS -3.7 mmol/L; ABG OXYGEN SATURATION 93.8 % (92.0-98.5); ABG PCO2 40.9 mmHg (35.0-45.0); ABG PH 7.344 (7.350-7.450); ABG PO2 82.4 mmHg (75.0-100.0); AaDO2 155.8 mmHg; COHb 0.3 % (0.5-1.5); MetHb 0.8 % (0.0-1.5); O2Hb 92.8 % (94.0-97.0); SITE, ABG Right Radial; VT, ABG 500 mL
[2017-08-23] MEDS ORDERED: PROPOFOL 100 ML IV ONE (00:54)
[2017-08-23] MEDS: BLOOD SUGAR DIAGNOSTIC 1 EACH STRIP IN SCH ×5 (00:55→23:46)
[2017-08-23] MEDS: INSULIN REGULAR, HUMAN 100 UNIT/ML 3 ML VIAL SQ PRN ×5 (00:56→23:49)
--- NOTE | 2017-08-23 00:59 | NUR ---
RN NOTES noted patient with elevated heart rate of 148 rate at around 2330, breathing labored. Vital signs checked BP 171/72. Administered morphine 2mg via iv push, not effective. Heart rate continuously goes up to 160 above. vital signs checked again BP 201/121. Agonal breathing noted with diaphoresis. Administered Ativan 0.5mg, not effective HR 166 with BP of 180/104. Continuous monitoring done. Called MD and obtained order for hydralazine 10mg IV push and Diltiazem 10mg IV push x 1 and ordered to transfer to ICU. noted and carried out. transferred to ICU at around 0020 with chart and all medications.
[2017-08-23] MEDS ORDERED: PROPOFOL 100 ML IV PRN (01:00)
[2017-08-23] MEDS: METRONIDAZOLE 500MG/ NS 100ML 500 MG in PREMIX 1 EA IV SCH ×3 (01:07→17:07)
[2017-08-23] MEDS: diphenhydrAMINE HCL 50 MG/ML VIAL IV PRN (03:31)
--- NOTE | 2017-08-23 03:55 | NUR ---
PATIENT ACCOUNT ANALYST PT WAS TRANSFERRED FROM TELE FLOOR /ROOM 115-1/ WITH RESPIRATORY DISTRESS, HYPERTENSION, TACHYCARDIA. PT IS AGITATED, DOES NOT FOLLOW ANY COMMANDS. EXTREMITIES ARE FLACCID. TRACH-PORTEX # 8, VENT. SETTING AC-16, TV 500, FIO2-40%. BILATERAL RHONCHI. STARTED PROPOFOL DRIP PER MD ORDER. SCOPE-ST WITH OCC. PAC'S. WOUND DRESSINGS DONE. COMPLETE BATH GIVEN, ALL LINEN CHANGED. PT IS AFEBRILE. MEDICATED ORDERED. REMAINS NPO.
[2017-08-23 04:39] LABS: BASOPHILS % (AUTO) 0.5 % (0.0-2.0); HEMATOCRIT 24 % (39-51); LYMPHOCYTES # (AUTO) 0.1 /CMM (0.8-4.8); MEAN CORPUSCULAR HEMOGLOBIN 32 PG (26.0-33.0); MEAN CORPUSCULAR HGB CONC 34 g/dl (31.0-36.0); MEAN CORPUSCULAR VOLUME 96 fL (80-96); MONOCYTES # (AUTO) 0.3 /CMM (0.1-1.30); NEUTROPHILS # (AUTO) 4.7 /CMM (1.8-8.9); NEUTROPHILS % (AUTO) 91.5 % (43.0-81.0); RDW COEFFICIENT OF VARIATION 20.6 (11.5-15.0); RED BLOOD CELL COUNT(AUTO) 2.48 MIL/uL (4.5-6.0); WHITE BLOOD COUNT (AUTO) 5.1 K/uL (4.3-11.0)
[2017-08-23 04:55] LABS: CALCIUM, SERUM 8.1 mg/dL (8.5-10.1); CREATININE 4.3 mg/dL (0.6-1.3); MAGNESIUM 1.8 mg/dL (1.8-2.4); PHOSPHORUS 3.2 mg/dL (2.5-4.9); POTASSIUM 3.1 mmol/L (3.5-5.1)
[2017-08-23 05:05] LABS: PLATELET COUNT (AUTO) 46 /CMM (150-450)
[2017-08-23 05:06] LABS: TROPONIN I 0.674 ng/mL (0.00-0.056)
[2017-08-23 05:09] LABS: LYMPHOCYTES % (MANUAL) 3 % (16-48); MONOCYTES % (MANUAL) 4 % (0-11.0); NEUTROPHILS % (MANUAL) 93 (42-76)
[2017-08-23] MEDS: LEVETIRACETAM (500MG) 500 MG in IV NS 0.9% 100 ML IV SCH ×2 (08:12→21:06)
[2017-08-23] MEDS: Z GUARD REMEDY 2 OZ OINT TP SCH (08:13)
[2017-08-23] MEDS: HYDROGEL DRESSING 90 GM TUBE TP SCH (08:13)
[2017-08-23] MEDS: BACITRACIN/POLYMYXIN B 15 GM TUBE TP SCH ×3 (08:14→17:05)
--- NOTE | 2017-08-23 08:32 | NUR ---
TITRATED DIPRIVAN OFF, PTS HEART RATE IS SINUS 80'S WITH OCCASIONAL PVCS, SBP IS IN THE 130'S TO 140'S. AFTER TITRATION OFF, PT AROUSABLE TO VERBAL STIMULI, OPENS EYES AND TRACKS. FAMILY AT BEDSIDE PROVIDED MACEDONIAN INTERPRETATION. UPDATED FAMILY ABOUT PLAN OF CARE. PT CURRENTLY HAS GTUBE CLAMPED AT THIS TIME HE IS NPO, WITH GI MD NOTED TO START TF NEXT WEEK (NOTE MADE ON 08/22/17). TPN IS RUNNING.
[2017-08-23] MEDS: LACTOBACILLUS RHAMNOSUS GG 1 EACH CAP.SPRINK GT SCH ×2 (08:55→17:00)
[2017-08-23] MEDS: FOLIC ACID 1 MG TABLET GT SCH (08:55)
[2017-08-23] MEDS: VIT B CMPLX 3/FA/VIT C/BIOTIN 1 TAB TABLET GT SCH (08:56)
[2017-08-23] MEDS: PROSOURCE / PROSTAT (PYXIS) 30 ML UDC GT SCH (08:56)
[2017-08-23] MEDS: ZINC SULFATE 220 MG CAPSULE GT SCH (08:56)
[2017-08-23] MEDS: TRAMADOL HCL 50 MG TABLET GT SCH ×2 (08:56→21:00)
[2017-08-23] MEDS: SEVELAMER CARBONATE 0.8 GM POWD.PACK GT SCH ×3 (08:56→21:00)
[2017-08-23] MEDS: GABAPENTIN 100 MG CAPSULE GT SCH ×2 (08:56→21:00)
[2017-08-23] MEDS ORDERED: TPN BAG #8 IV PRN ×8 (09:30)
[2017-08-23] MEDS ORDERED: TPN BAG #7 IV PRN ×8 (09:30)
[2017-08-23] MEDS: POTASSIUM CL. PREMIX PERIPHER. 50 ML IV SCH ×2 (09:56→10:20)
[2017-08-23] MEDS: PANTOPRAZOLE 40 MG VIAL IV SCH (11:06)
[2017-08-23] MEDS ORDERED: VANCOMYCIN 500 MG in IV D5W 100 ML IV ONE (12:00)
[2017-08-23] MEDS ORDERED: AMIKACIN 500 MG in IV D5W 100 ML IV ONE (12:00)
[2017-08-23] MEDS: hydrALAZINE HCL IV 20 MG VIAL IV PRN ×2 (15:25→21:07)
--- NOTE | 2017-08-23 19:14 | NUR ---
curriculum and assessment coordinator. initial assessment. received the pt awake, alert, does not follow commands. TRACH TO VENT CONNECTED PORTEX#8,AC 16, TV 500,FIO2 40%. SAT 98%. NO ACUTE DISTRESS NOTED. CLEAN RICE GRADER AND REEL TENDER SHOWING NSR. IV LT UPPER ARM PICC LINE,RT SUBCLAVIAN HD CATH. TPN 50ML/H. GT INTACT. ABDOMEN DISTENDED. NPO. HOB ELEVATED. TURN AND REPOSITION Q2H. WILL CONTINUE TO MONITOR VITALS.
[2017-08-23] MEDS: FLUCONAZOLE IN NS 100 MG in PREMIX 1 EA IV SCH ×2 (19:33)
[2017-08-23] MEDS: CEFEPIME 1 GM in IV D5W 50 ML IV SCH (20:27)
[2017-08-23] MEDS: IV NS 0.9% 250 ML IV PRN (21:07)
[2017-08-23] MEDS: PYRIDOXINE HCL 50 MG TABLET GT SCH (22:00)
[2017-08-24] VITALS (35 sets, daily range): BP systolic 144–193; BP diastolic 67–92
[2017-08-24] MEDS: MORPHINE SULFATE INJ 2 MG/ML DISP.SYRIN IV PRN ×2 (00:26→06:39)
--- NOTE | 2017-08-24 00:30 | NUR ---
SENIOR REPORT DEVELOPER. RESPIRATORY DISTRESS NOTED. MORPHINE IV GIVEN PER MD ORDERED.
[2017-08-24] MEDS: METRONIDAZOLE 500MG/ NS 100ML 500 MG in PREMIX 1 EA IV SCH ×3 (02:21→17:19)
--- NOTE | 2017-08-24 03:11 | NUR ---
RN NOTE. AM CARE, ORAL CARE, BED BATH GIVEN. LINEN CHANGED. REMAINING SAME VENT SETTING TOLERATED WELL. SAT 99%. WOUND PICTURE TAKEN. DRESSING DONE. GT INTACT , NPO. GT CLAMPED. IV LT UPPER ARM PICC LINE. IV TPN 50ML/H. AFEBRILE. WILL CONTINUE TO MONITOR.
[2017-08-24] MEDS: hydrALAZINE HCL IV 20 MG VIAL IV PRN ×4 (03:19→17:28)
[2017-08-24 04:35] LABS: BASOPHILS % (AUTO) 2.2 % (0.0-2.0); EOSINOPHILS # (AUTO) 0.1 /CMM (0.0-0.7); EOSINOPHILS % (AUTO) 3.2 % (0.0-6.0); LYMPHOCYTES # (AUTO) 0.2 /CMM (0.8-4.8); LYMPHOCYTES % (AUTO) 14.1 % (20.0-44.0); MEAN CORPUSCULAR HEMOGLOBIN 32 PG (26.0-33.0); MEAN CORPUSCULAR HGB CONC 33 g/dl (31.0-36.0); MEAN CORPUSCULAR VOLUME 96 fL (80-96); MONOCYTES # (AUTO) 0.1 /CMM (0.1-1.30); MONOCYTES % (AUTO) 8.8 % (2.0-12.0); NEUTROPHILS # (AUTO) 1.1 /CMM (1.8-8.9); NEUTROPHILS % (AUTO) 71.7 % (43.0-81.0); RDW COEFFICIENT OF VARIATION 20.8 (11.5-15.0)
[2017-08-24 04:36] LABS: CALCIUM, SERUM 8.1 mg/dL (8.5-10.1); CREATININE 4.6 mg/dL (0.6-1.3); MAGNESIUM 1.8 mg/dL (1.8-2.4); PHOSPHORUS 2.3 mg/dL (2.5-4.9); POTASSIUM 3.6 mmol/L (3.5-5.1)
[2017-08-24 04:42] LABS: HEMATOCRIT 20 % (39-51); HEMOGLOBIN 6.7 g/dL (13.5-17.5); PLATELET COUNT (AUTO) 35 /CMM (150-450); WHITE BLOOD COUNT (AUTO) 1.6 K/uL (4.3-11.0)
[2017-08-24 05:09] LABS: HEMOGLOBIN 7.4 g/dL (13.5-17.5)
[2017-08-24] MEDS: BLOOD SUGAR DIAGNOSTIC 1 EACH STRIP IN SCH ×4 (05:13→23:06)
[2017-08-24] MEDS: INSULIN REGULAR, HUMAN 100 UNIT/ML 3 ML VIAL SQ PRN ×4 (05:19→23:09)
[2017-08-24 05:24] LABS: EOSINOPHILS % (MANUAL) 2 % (0-4); LYMPHOCYTES % (MANUAL) 18 % (16-48); MONOCYTES % (MANUAL) 8 % (0-11.0); NEUTROPHILS % (MANUAL) 72 (42-76)
--- NOTE | 2017-08-24 07:10 | NUR ---
RN INITIAL NOTES RECEIVED PT AWAKE, A/OX1. NON-VERBAL. TRACH IN PLACE. ON [facility] VENT WITH FF SETTINGS: AC16, VT500, FI02 40%, PEEP 0. NO RESPIRATORY DISTRESS NOTED. NO SOB NOTED. NO SIGNS OF PAIN NOTED. PICC LINE IN PLACE. RIGHT SUBCLAVIAN PERMACATH IN PLACE. BLE ELEVATED. PT COMFORTABLE. WILL MONITOR.
[2017-08-24] MEDS: FOLIC ACID 1 MG TABLET GT SCH (08:13)
[2017-08-24] MEDS: SEVELAMER CARBONATE 0.8 GM POWD.PACK GT SCH ×3 (08:13→19:12)
[2017-08-24] MEDS: LACTOBACILLUS RHAMNOSUS GG 1 EACH CAP.SPRINK GT SCH ×2 (08:13→16:03)
[2017-08-24] MEDS: GABAPENTIN 100 MG CAPSULE GT SCH ×2 (08:13→19:12)
[2017-08-24] MEDS: PROSOURCE / PROSTAT (PYXIS) 30 ML UDC GT SCH (08:13)
[2017-08-24] MEDS: ZINC SULFATE 220 MG CAPSULE GT SCH (08:13)
[2017-08-24] MEDS: VIT B CMPLX 3/FA/VIT C/BIOTIN 1 TAB TABLET GT SCH (08:13)
[2017-08-24] MEDS: TRAMADOL HCL 50 MG TABLET GT SCH ×2 (08:13→19:12)
[2017-08-24] MEDS: LEVETIRACETAM (500MG) 500 MG in IV NS 0.9% 100 ML IV SCH ×2 (08:32→20:25)
[2017-08-24] MEDS: Z GUARD REMEDY 2 OZ OINT TP SCH (08:33)
[2017-08-24] MEDS: HYDROGEL DRESSING 90 GM TUBE TP SCH (08:33)
[2017-08-24] MEDS: BACITRACIN/POLYMYXIN B 15 GM TUBE TP SCH ×3 (08:34→17:19)
[2017-08-24] MEDS: LORAZEPAM INJ 2 MG/ML VIAL IV PRN ×2 (09:02→18:15)
--- NOTE | 2017-08-24 10:40 | NUR ---
RN NOTES SEEN AND EXAMINED BY DR. ARCINIEGA. AWARE IF CURRENT LAB VALUES AND CXR RESULT. PT FOR HD TODAY. NO RESPIRATORY DISTRESS NOTED. NO SIGNS OF PAIN NOTED. WILL MONITOR.
[2017-08-24] MEDS: PANTOPRAZOLE 40 MG VIAL IV SCH (11:05)
--- NOTE | 2017-08-24 11:30 | NUR ---
RN NOTES SEEN AND EXAMINED BY DR. JENI SCHWARTZ. AWARE OF LAB VALUES: WBC 1.6, HGB 7.4, HGB 22, PLATELET 35. ON EPOGEN. NO SIGNS OF ACTIVE BLEEDING NOTED. BUN 55, CREA 4.6. HD TODAY. MD ALSO AWARE OF CXR RESULT. NO ORDER MADE.
[2017-08-24] MEDS: MORPHINE SULFATE INJ 10 MG/ML DISP.SYRIN IV PRN (13:25)
[2017-08-24] MEDS ORDERED: EPOETIN ALFA (10,000 UNIT) 10,000 UNIT/ML VIAL SQ ONE (14:00)
[2017-08-24] MEDS ORDERED: BISACODYL SUPP (10 MG) 10 MG/SUPP.RECT SUPP.RECT RC ONE (14:00)
[2017-08-24] MEDS ORDERED: BISACODYL SUPP (10 MG) 10 MG/SUPP.RECT SUPP.RECT RC PRN (14:00)
[2017-08-24] MEDS ORDERED: TPN BAG # 9 IV PRN ×9 (15:30)
--- NOTE | 2017-08-24 18:40 | NUR ---
RN NOTES PT TRANSFERRED TO [facility] 118-2. PT EYES OPEN, NON-VERBAL. NO RESPIRATORY DISTRESS NOTED. NO SOB NOTED. NO SIGNS OF PAIN NOTED. TRACH IN PLACE. TOLERATING VENT WELL. PICC LINE AND RIGHT SUBCLAVIAN PERMACATH IN PLACE. TPN INFUSING. PT CLEAN AND DRY. TX PROVIDED. DRESSING INTACT. PT COMFORTABLE. BEDSIDE REPORT GIVEN TO LIN AYALA. ALL PERTINENT INFO GIVEN. PT TRANSFERRED IN STABLE CONDITION.
--- NOTE | 2017-08-24 18:41 | NUR ---
nelia note received pt [place], [place] [address] hr 95 r 12 o2 100%, all medications received, pt running tpn # 7, report will be given to cherelle cameron for mark Addendum: 08/24/17 at 1843 by LIN RODRÍGUEZ RN bp 169/
[2017-08-24] MEDS: PYRIDOXINE HCL 50 MG TABLET GT SCH (19:12)
--- NOTE | 2017-08-24 19:39 | NUR ---
RN:TD: PT RECEIVED IN BED ON VENT VIA TRACH. PT TOLERATING CURRENT VENT SETTINGS, PT RESPONDS TO PAINFUL STIMULI. PT NPO GTUBE IS MALFUNCTIONING. MD UNABLE TO REPAIR GT DUE TO PANCYTOPENIA. DIPRIVAN ORDER D/C DUE TO CURRENT [facility] STATUS. PT REMAINS IN REVERSE/NEUTROPENIC ISO DUE TO CRITICALLY LOW WBC. PT RECEIVING TPN PER MD ORDERS. ASPIRATION/FALL PRECAUTIONS IN PLACE. VSS. WILL CONTINUE TO MONITOR CLOSELY.
[2017-08-24] MEDS: FLUCONAZOLE IN NS 100 MG in PREMIX 1 EA IV SCH ×2 (19:43)
[2017-08-24] MEDS: CEFEPIME 1 GM in IV D5W 50 ML IV SCH (19:44)
[2017-08-25] VITALS (53 sets, daily range): BP systolic 97–174; BP diastolic 40–99
[2017-08-25] MEDS: hydrALAZINE HCL IV 20 MG VIAL IV PRN (01:58)
[2017-08-25] MEDS: METRONIDAZOLE 500MG/ NS 100ML 500 MG in PREMIX 1 EA IV SCH ×3 (02:08→17:24)
--- NOTE | 2017-08-25 02:19 | NUR ---
RN:TD: PRN HYDRALAZINE GIVEN FOR SBP GREATER THAN 160. WILL F/U BP SHORTLY.
[2017-08-25] MEDS: LORAZEPAM INJ 2 MG/ML VIAL IV PRN (03:00)
[2017-08-25] MEDS: MORPHINE SULFATE INJ 10 MG/ML DISP.SYRIN IV PRN (03:14)
--- NOTE | 2017-08-25 03:20 | NUR ---
rn:td: after bed bath pt developed respiratory distress. pt has hx of respiratory distress after adl. attempted to medicate pt with morphine and ativan without success. orders for stat abg and xray placed. will continue to monitor closely.
[2017-08-25 03:39] LABS: ABG BASE EXCESS -3.9 mmol/L; ABG OXYGEN SATURATION 95.1 % (92.0-98.5); ABG PCO2 47.4 mmHg (35.0-45.0); ABG PH 7.296 (7.350-7.450); ABG PO2 90.7 mmHg (75.0-100.0); MetHb 0.9 % (0.0-1.5); O2Hb 94.2 % (94.0-97.0); SITE, ABG Right Radial; VT, ABG 500 mL
[2017-08-25] MEDS ORDERED: PROPOFOL 100 ML IV PRN ×2 (04:00→04:30)
--- NOTE | 2017-08-25 04:00 | NUR ---
RN NOTES PT TRANSFERRED FROM [facility] VIA BED. RECEIVED REPORT FROM JAMIE JACK FOR PT'S KRYS. PT IS OBTUNDED, AGONAL BREATHING WITH USE OF ACCESSORY MUSCLES NOTED. ON VENT AC16, TV500, 40% FIO2, 0 PEEP, PORTEX 8. PER DR ARCINIEGA ORDER, VENT CHANGES TO BE MADE: AC 22, TV 550. MD ALSO ORDERED DIPRIVAN DRIP TO BE STARTED FOR SEDATION. WILL INITIATE NEW MD ORDERS. SINUS TACH ON THE MONITOR, HR 140'S. ON DIAPERS ONLY. RIGHT CHEST WALL HD CATH NOTED. LEFT UPPER ARM PICC WITH TPN #9 @ 50MLS/HR, FLUSHED AND PATENT, NO S/S OF INFILTRATION/INFECTION, DRESSING CDI. BED LOW AND LOCKED, SIDERAILS UP, BED ALARM ON. WILL CLOSELY MONITOR
[2017-08-25] MEDS ORDERED: PROPOFOL 100 ML IV ONE (04:05)
--- NOTE | 2017-08-25 04:22 | NUR ---
RN:TD: DR ARCINIEGA INFORMED REGARDING RESPIRATORY DISTRESS AND CURRENT VITAL SIGNS. NEW ORDERS TO TRANSFER TO ICU AND START DIPRIVAN GTT. NEW ORDERS TO CHANGE VENTS SETTINGS. RT AWARE. PT TRANSFERRED TO ICU FOLLOWING ACLS PROTOCOL. ENDORSED CARE TO [facility]. ENDORSED TO HAVE ONCOMING NURSE REVIEW CHEST XRAY.
[2017-08-25] MEDS ORDERED: SODIUM ACETATE IV PRN ×16 (04:30)
[2017-08-25] MEDS ORDERED: [UNRECOGNIZED DRUG - OTHER] IV PRN ×16 (04:30)
[2017-08-25] MEDS ORDERED: TPN ADDITIVES IV PRN ×16 (04:30)
[2017-08-25] MEDS ORDERED: hydrALAZINE HCL IV 20 MG VIAL IV ONE (04:30)
[2017-08-25] MEDS ORDERED: DILTIAZEM HCL 50 MG IV IV ONE (04:30)
[2017-08-25] MEDS ORDERED: SODIUM CHLORIDE IV PRN ×16 (04:30)
[2017-08-25] MEDS ORDERED: MORPHINE SULFATE INJ 2 MG/ML DISP.SYRIN IV PRN (04:30)
--- NOTE | 2017-08-25 04:41 | NUR ---
rn:icu: when attempting to process transfer to icu error message in emr stated that the stop time cannot be before start time, in order to process transfer dates were changed to today. medications from previous transfer appeared on emar to be given, called icu to ensure that these medications were not given. medications d/c as they are not to be given. last process transfer was not performed by the previous nurse before transferring to icu the day before last. spoke with opal regarding issue. will endorse to oncoming shift or pharmacy.
--- NOTE | 2017-08-25 04:51 | NUR ---
RATE CHANGED TO 22, VT [address] ARCINIEGA. RN NOTIFIED.
[2017-08-25 05:04] LABS: BASOPHILS # (AUTO) 0.1 /CMM (0.0-0.2); BASOPHILS % (AUTO) 1.6 % (0.0-2.0); HEMATOCRIT 28 % (39-51); HEMOGLOBIN 9.2 g/dL (13.5-17.5); LYMPHOCYTES # (AUTO) 0.4 /CMM (0.8-4.8); MEAN CORPUSCULAR HEMOGLOBIN 32 PG (26.0-33.0); MEAN CORPUSCULAR HGB CONC 33 g/dl (31.0-36.0); MEAN CORPUSCULAR VOLUME 96 fL (80-96); MONOCYTES # (AUTO) 0.3 /CMM (0.1-1.30); MONOCYTES % (AUTO) 3.7 % (2.0-12.0); NEUTROPHILS # (AUTO) 6.2 /CMM (1.8-8.9); NEUTROPHILS % (AUTO) 88.7 % (43.0-81.0); PLATELET COUNT (AUTO) 59 /CMM (150-450); RDW COEFFICIENT OF VARIATION 22.4 (11.5-15.0); RED BLOOD CELL COUNT(AUTO) 2.91 MIL/uL (4.5-6.0)
--- NOTE | 2017-08-25 05:11 | NUR ---
RN:TD: DUPLICATE DIPRIVAN ORDER, BY MISTAKE WRONG DIPRIVAN ORDER D/C. MEDICATION SCANNED BY [facility] PER MD ORDERS.
[2017-08-25 05:20] LABS: CALCIUM, SERUM 8.7 mg/dL (8.5-10.1); CREATININE 5.3 mg/dL (0.6-1.3); MAGNESIUM 1.7 mg/dL (1.8-2.4); PHOSPHORUS 3.1 mg/dL (2.5-4.9); POTASSIUM 3.7 mmol/L (3.5-5.1)
[2017-08-25 05:24] LABS: BAND % (MANUAL) 2 % (0.0-5.0); LYMPHOCYTES % (MANUAL) 8 % (16-48); MONOCYTES % (MANUAL) 3 % (0-11.0); NEUTROPHILS % (MANUAL) 87 (42-76)
[2017-08-25] MEDS: BLOOD SUGAR DIAGNOSTIC 1 EACH STRIP IN SCH ×4 (05:34→23:37)
[2017-08-25] MEDS: INSULIN REGULAR, HUMAN 100 UNIT/ML 3 ML VIAL SQ PRN ×2 (05:37→23:37)
--- NOTE | 2017-08-25 06:16 | NUR ---
rn:td: message left for daughter and pmd regarding tx to icu. will endorse to oncoming shift.
--- NOTE | 2017-08-25 06:20 | NUR ---
RN NOTES SPOKE WITH THE DAUGHTER JAQUELIN ([phone]) AND GAVE HER AN UPDATE OF THE PATIENT'S CONDITION. PT ALSO VOICED HER CONCERN ABOUT WHEN THE GTUBE FEEDING IS TO BE RESTARTED - WILL ENDORSE TO DAY SHIFT THAT PATIENT IS REQUESTING AN UPDATE FROM DR HERNANDEZ IN REGARDS TO THIS
--- NOTE | 2017-08-25 06:30 | NUR ---
RN CLOSING NOTES PT REMAINS TO BE STABLE NOW. NO AGONAL BREATHING NOTED. VENT SETTINGS AC 22, TV 550, 40% FIO2, 0 PEEP, SATURATING WELL. DIPRIVAN @ 10MCG/KG/MIN. WILL ENDORSE KRYS TO AM RN
[2017-08-25] MEDS: GABAPENTIN 100 MG CAPSULE GT SCH ×2 (09:00→20:09)
[2017-08-25] MEDS: SEVELAMER CARBONATE 0.8 GM POWD.PACK GT SCH ×3 (09:00→20:09)
[2017-08-25] MEDS: ZINC SULFATE 220 MG CAPSULE GT SCH (09:00)
[2017-08-25] MEDS: LACTOBACILLUS RHAMNOSUS GG 1 EACH CAP.SPRINK GT SCH ×2 (09:00→16:21)
[2017-08-25] MEDS: VIT B CMPLX 3/FA/VIT C/BIOTIN 1 TAB TABLET GT SCH (09:00)
[2017-08-25] MEDS: TRAMADOL HCL 50 MG TABLET GT SCH ×2 (09:00→20:10)
[2017-08-25] MEDS: FOLIC ACID 1 MG TABLET GT SCH (09:00)
[2017-08-25] MEDS: PROSOURCE / PROSTAT (PYXIS) 30 ML UDC GT SCH (09:00)
[2017-08-25] MEDS: Z GUARD REMEDY 2 OZ OINT TP SCH (09:11)
[2017-08-25] MEDS: HYDROGEL DRESSING 90 GM TUBE TP SCH (09:11)
[2017-08-25] MEDS: BACITRACIN/POLYMYXIN B 15 GM TUBE TP SCH ×3 (09:12→17:26)
[2017-08-25] MEDS: POLYVINYL ALCOHOL 15 ML BOTTLE EACHEYE PRN (09:12)
[2017-08-25] MEDS: LEVETIRACETAM (500MG) 500 MG in IV NS 0.9% 100 ML IV SCH ×2 (09:18→21:33)
--- NOTE | 2017-08-25 09:20 | NUR ---
ICU/RN SEDATION VACATION PROVIDED,DIPRIVAN OFF.PT IS CALM.V/S STABLE. NO S/S OF DISTRESS NOTED.
--- NOTE | 2017-08-25 10:00 | NUR ---
ICU/RN PT IS OFF DIPRIVAN.AWAKE.V/S STABLE ,AFEBRILE.CONTINUE MONITORING.
[2017-08-25] MEDS: LORAZEPAM INJ 2 MG/ML VIAL IV SCH ×2 (10:30→21:34)
[2017-08-25] MEDS ORDERED: TPN BAG # 10 IV PRN ×9 (11:00)
[2017-08-25] MEDS ORDERED: TPN IV PRN ×9 (11:00)
[2017-08-25] MEDS: PANTOPRAZOLE 40 MG VIAL IV SCH (13:00)
[2017-08-25] MEDS: VANCOMYCIN 500 MG in IV D5W 100 ML IV PRN (13:33)
--- NOTE | 2017-08-25 14:05 | NUR ---
ICU/RN HD IS OVER .PT TOLERATED PROCEDURE WELL.2L IS OUT.V/S STABLE.CONTINUE MONITORING.
[2017-08-25] MEDS: CLONIDINE HCL 0.1MG/24H PTWK 1 EA PATCH TD SCH (14:37)
[2017-08-25] MEDS: IV NS 0.9% 250 ML IV PRN (15:04)
--- NOTE | 2017-08-25 18:37 | NUR ---
ICU/RN BS-150.DUE MEDS ARE GIVEN ORDERED.PT IS ON TPN.PM CARE PROVIDED.WOUND CARE DONE ORDERED.SUCTION PROVIDED.REPOSITION FOR COMFORT.
[2017-08-25] MEDS: CEFEPIME 1 GM in IV D5W 50 ML IV SCH (19:24)
--- NOTE | 2017-08-25 19:30 | NUR ---
RN NOTES RECEIVED THE PATIENT AWAKE ON BED, A/O X1-2, ABLE TO FOLLOW SIMPLE COMMANDS. ON VENT AC22, TV550, 40% FIO2, 0 PEEP, PORTEX 8. SINUS RHYTHM ON THE MONITOR, HR 80'S. ON DIAPERS ONLY. RIGHT CHEST WALL HD CATH NOTED. LEFT UPPER ARM PICC WITH TPN #10 @ 60MLS/HR, FLUSHED AND PATENT, NO S/S OF INFILTRATION/INFECTION, DRESSING CDI. BED LOW AND LOCKED, SIDERAILS UP, BED ALARM ON. WILL CLOSELY MONITOR
[2017-08-25] MEDS: PYRIDOXINE HCL 50 MG TABLET GT SCH (21:34)
[2017-08-26] VITALS (36 sets, daily range): BP systolic 102–169; BP diastolic 69–104
[2017-08-26] MEDS: METRONIDAZOLE 500MG/ NS 100ML 500 MG in PREMIX 1 EA IV SCH ×3 (01:17→17:19)
[2017-08-26] MEDS: MORPHINE SULFATE INJ 10 MG/ML DISP.SYRIN IV PRN (03:38)
[2017-08-26 04:48] LABS: EOSINOPHILS % (AUTO) 2.8 % (0.0-6.0); HEMATOCRIT 22 % (39-51); HEMOGLOBIN 7.5 g/dL (13.5-17.5); LYMPHOCYTES # (AUTO) 0.2 /CMM (0.8-4.8); LYMPHOCYTES % (AUTO) 16.6 % (20.0-44.0); MEAN CORPUSCULAR HEMOGLOBIN 32 PG (26.0-33.0); MEAN CORPUSCULAR HGB CONC 34 g/dl (31.0-36.0); MEAN CORPUSCULAR VOLUME 96 fL (80-96); MONOCYTES # (AUTO) 0.1 /CMM (0.1-1.30); MONOCYTES % (AUTO) 8.3 % (2.0-12.0); NEUTROPHILS % (AUTO) 71.3 % (43.0-81.0); RDW COEFFICIENT OF VARIATION 21.9 (11.5-15.0); RED BLOOD CELL COUNT(AUTO) 2.33 MIL/uL (4.5-6.0)
[2017-08-26 04:58] LABS: CALCIUM, SERUM 8.3 mg/dL (8.5-10.1); CREATININE 3.8 mg/dL (0.6-1.3); MAGNESIUM 1.7 mg/dL (1.8-2.4); PHOSPHORUS 1.4 mg/dL (2.5-4.9); POTASSIUM 3.8 mmol/L (3.5-5.1)
[2017-08-26 05:20] LABS: PLATELET COUNT (AUTO) 43 /CMM (150-450); WHITE BLOOD COUNT (AUTO) 1.4 K/uL (4.3-11.0)
[2017-08-26] MEDS: BLOOD SUGAR DIAGNOSTIC 1 EACH STRIP IN SCH ×3 (05:47→17:19)
[2017-08-26] MEDS: INSULIN REGULAR, HUMAN 100 UNIT/ML 3 ML VIAL SQ PRN ×2 (05:48→12:12)
--- NOTE | 2017-08-26 06:30 | NUR ---
RN CLOSING NOTES PT REMAINS STABLE OF THE MOMENT. ALL DUE MEDS GIVEN, AM CARE PROVIDED. WILL ENDORSE KRYS TO AM RN
[2017-08-26 06:37] LABS: BAND % (MANUAL) 3 % (0.0-5.0); EOSINOPHILS % (MANUAL) 2 % (0-4); LYMPHOCYTES % (MANUAL) 17 % (16-48); MONOCYTES % (MANUAL) 12 % (0-11.0); NEUTROPHILS % (MANUAL) 66 (42-76)
--- NOTE | 2017-08-26 08:00 | NUR ---
ICU/RN INITIAL NOTES,AM RECEIVED REPORT FROM NIGHT NURSE. PT RESTING IN BED. ALERT, SOMETIMES FOLLOWS COMMANDS. PT ON VENT SETTINGS ORDERED BY MD NO ACUTE DISTRESS NOTED AT THIS TIME. PT ON TELE, SINUS. PEG CLAMPED AT THIS TIME, PER MD WE ARE NOT TO USE TILL FURTHER ORDERS. PT IS NPO AT THIS TIME. LEFT UPPER ARM PICC LINE PATENT AND INTACT, NO S/S OF INFECTION OR INFILTRATION NOTED. TPN INFUSING ORDERED. PT HAD H.D YESTERDAY, SCHEDULED FOR TOMORROW WELL. PT ANURIC. LOW GRADE FEVER OF 99.6 NOTED, COOLING MEASURES TAKEN. SAFETY MEASURES TAKEN, BED IN LOW POSITION, ZORA RAILS UP, CALL LIGHT WITHIN REACH. ALL NEEDS WILL BE ATTENDED TO. PT ON REVERSE ISOLATION. WILL CARRY OUT.
[2017-08-26] MEDS: PROSOURCE / PROSTAT (PYXIS) 30 ML UDC GT SCH (09:00)
[2017-08-26] MEDS: GABAPENTIN 100 MG CAPSULE GT SCH ×2 (09:00→20:13)
[2017-08-26] MEDS: ZINC SULFATE 220 MG CAPSULE GT SCH (09:00)
[2017-08-26] MEDS: LACTOBACILLUS RHAMNOSUS GG 1 EACH CAP.SPRINK GT SCH ×2 (09:00→17:00)
[2017-08-26] MEDS: SEVELAMER CARBONATE 0.8 GM POWD.PACK GT SCH ×3 (09:00→20:13)
[2017-08-26] MEDS: TRAMADOL HCL 50 MG TABLET GT SCH ×2 (09:00→20:14)
[2017-08-26] MEDS: VIT B CMPLX 3/FA/VIT C/BIOTIN 1 TAB TABLET GT SCH (09:00)
[2017-08-26] MEDS: FOLIC ACID 1 MG TABLET GT SCH (09:00)
[2017-08-26 09:06] LABS: ABG BASE EXCESS 4.6 mmol/L; ABG OXYGEN SATURATION 96.4 % (92.0-98.5); ABG PCO2 26.5 mmHg (35.0-45.0); ABG PH 7.613 (7.350-7.450); ABG PO2 92.1 mmHg (75.0-100.0); AaDO2 162.6 mmHg; COHb 0.3 % (0.5-1.5); MetHb 1.2 % (0.0-1.5); SITE, ABG Right Radial
[2017-08-26] MEDS: HYDROGEL DRESSING 90 GM TUBE TP SCH (09:14)
[2017-08-26] MEDS: LEVETIRACETAM (500MG) 500 MG in IV NS 0.9% 100 ML IV SCH ×2 (09:14→21:14)
[2017-08-26] MEDS: LORAZEPAM INJ 2 MG/ML VIAL IV SCH ×2 (09:14→21:15)
[2017-08-26] MEDS: BACITRACIN/POLYMYXIN B 15 GM TUBE TP SCH ×3 (09:15→17:18)
[2017-08-26] MEDS: Z GUARD REMEDY 2 OZ OINT TP SCH (09:15)
[2017-08-26] MEDS ORDERED: TPN BAG #11 IV PRN ×10 (10:26)
[2017-08-26] MEDS: PANTOPRAZOLE 40 MG VIAL IV SCH (10:35)
--- NOTE | 2017-08-26 10:36 | NUR ---
RT POST ABG RESULTS VENT CHANGES MADE PER DR ARCINIEGA. Addendum: 08/26/17 at 1206 by NICKOLAS NORRIS RT Amended: Links added.
[2017-08-26] MEDS ORDERED: TPN BAG #12 IV PRN ×10 (11:00)
--- NOTE | 2017-08-26 12:30 | NUR ---
ICU/RN MD ROUNDS PER PT IS TO STAY IN ICU ONE MORE DAY TO ENSURE THE ANXIETY IS UNDER CONTROL WITHOUT DIPRIVAN. WILL CONTINUE TO MONITOR AND ASSESS.
[2017-08-26] MEDS ORDERED: FILGRASTIM (300 MCG) 300 MCG/ML VIAL SQ SCH (14:00)
[2017-08-26] MEDS: TBO-FILGRASTIM 300 MCG/0.5 ML SYRINGE SQ SCH (15:54)
--- NOTE | 2017-08-26 18:35 | NUR ---
ICU/RN: PT SEEN AND ASSESSED BY SENIOR MEDICAL WRITER ERIBERTO. ORDERS PLACED FOR US OF SPLEEN. IN REGARDS TO [facility], DOCTORS DO NOT WANT TO TOUCH DUE TO THE PATIENTS CONDITION. SANDRO DEFERRING TO ETHICS COMMITTEE.
--- NOTE | 2017-08-26 18:44 | NUR ---
ICU/RN ENDING NOTES,AM REPORT WILL BE ENDORSED TO NIGHT NURSE FOR CONTINUATION OF CARE. ALL NEEDS MET, SAFETY MEASURES TAKEN, BED IN LOW POSITION, SIDE RAILS UP, CALL LIGHT WITHIN REACH. PT BATHE, TURNED AND REPOSITIONED. TPN INFUSING. PT ANURIC. SAFETY MEASURES TAKEN. BED IN LOW POSITION, SIDE RAILS UP, CALL LIGHT WITHIN REACH.
[2017-08-26] MEDS: CEFEPIME 1 GM in IV D5W 50 ML IV SCH (20:09)
[2017-08-26] MEDS: PYRIDOXINE HCL 50 MG TABLET GT SCH (21:28)
[2017-08-26] MEDS: diphenhydrAMINE HCL 50 MG/ML VIAL IV PRN (22:32)
[2017-08-27] VITALS (28 sets, daily range): BP systolic 105–151; BP diastolic 71–99
[2017-08-27] MEDS: BLOOD SUGAR DIAGNOSTIC 1 EACH STRIP IN SCH ×4 (00:15→17:35)
[2017-08-27] MEDS: INSULIN REGULAR, HUMAN 100 UNIT/ML 3 ML VIAL SQ PRN (00:18)
[2017-08-27] MEDS: METRONIDAZOLE 500MG/ NS 100ML 500 MG in PREMIX 1 EA IV SCH ×3 (01:19→18:43)
[2017-08-27] MEDS: LORAZEPAM INJ 2 MG/ML VIAL IV PRN (05:08)
[2017-08-27 06:02] LABS: BASOPHILS # (AUTO) 0.1 /CMM (0.0-0.2); BASOPHILS % (AUTO) 3.4 % (0.0-2.0); EOSINOPHILS # (AUTO) 0.1 /CMM (0.0-0.7); EOSINOPHILS % (AUTO) 2.4 % (0.0-6.0); HEMATOCRIT 21 % (39-51); HEMOGLOBIN 7.1 g/dL (13.5-17.5); LYMPHOCYTES # (AUTO) 0.2 /CMM (0.8-4.8); LYMPHOCYTES % (AUTO) 6.5 % (20.0-44.0); MEAN CORPUSCULAR HEMOGLOBIN 32 PG (26.0-33.0); MEAN CORPUSCULAR HGB CONC 34 g/dl (31.0-36.0); MEAN CORPUSCULAR VOLUME 96 fL (80-96); MONOCYTES # (AUTO) 0.2 /CMM (0.1-1.30); MONOCYTES % (AUTO) 5.4 % (2.0-12.0); NEUTROPHILS # (AUTO) 2.6 /CMM (1.8-8.9); NEUTROPHILS % (AUTO) 82.3 % (43.0-81.0); RED BLOOD CELL COUNT(AUTO) 2.21 MIL/uL (4.5-6.0); WHITE BLOOD COUNT (AUTO) 3.1 K/uL (4.3-11.0)
[2017-08-27 06:18] LABS: CALCIUM, SERUM 8.5 mg/dL (8.5-10.1); CREATININE 4.6 mg/dL (0.6-1.3); MAGNESIUM 1.9 mg/dL (1.8-2.4); PHOSPHORUS 1.7 mg/dL (2.5-4.9)
[2017-08-27 06:29] LABS: PLATELET COUNT (AUTO) 41 /CMM (150-450)
--- NOTE | 2017-08-27 07:46 | NUR ---
ICU/RN INITIAL NOTES,AM RECEIVED REPORT FROM NIGHT NURSE. PT RESTING IN BED. ALERT, SOMETIMES FOLLOWS COMMANDS. PT ON VENT SETTINGS ORDERED BY MD NO ACUTE DISTRESS NOTED AT THIS TIME. PT ON TELE, SINUS. PEG CLAMPED PT IS NPO AT THIS TIME. LEFT UPPER ARM PICC LINE PATENT AND INTACT, NO S/S OF INFECTION OR INFILTRATION NOTED. TPN INFUSING ORDERED. PT SCHEDULED FOR HD TODAY. PT ANURIC. SAFETY MEASURES TAKEN, BED IN LOW POSITION, ZORA RAILS UP, CALL LIGHT WITHIN REACH. ALL NEEDS WILL BE ATTENDED TO. PT ON REVERSE ISOLATION. WILL CARRY OUT.
[2017-08-27] MEDS ORDERED: EPOETIN ALFA (10,000 UNIT) 10,000 UNIT/ML VIAL SQ ONE (08:30)
[2017-08-27] MEDS: LACTOBACILLUS RHAMNOSUS GG 1 EACH CAP.SPRINK GT SCH ×2 (08:34→16:31)
[2017-08-27] MEDS: FOLIC ACID 1 MG TABLET GT SCH (08:34)
[2017-08-27] MEDS: VIT B CMPLX 3/FA/VIT C/BIOTIN 1 TAB TABLET GT SCH (08:34)
[2017-08-27] MEDS: SEVELAMER CARBONATE 0.8 GM POWD.PACK GT SCH ×3 (08:35→20:34)
[2017-08-27] MEDS: ZINC SULFATE 220 MG CAPSULE GT SCH (08:35)
[2017-08-27] MEDS: PROSOURCE / PROSTAT (PYXIS) 30 ML UDC GT SCH (08:35)
[2017-08-27] MEDS: TRAMADOL HCL 50 MG TABLET GT SCH ×2 (08:35→20:34)
[2017-08-27] MEDS: GABAPENTIN 100 MG CAPSULE GT SCH ×2 (08:35→20:34)
[2017-08-27 08:43] LABS: BAND % (MANUAL) 1 % (0.0-5.0); LYMPHOCYTES % (MANUAL) 7 % (16-48); MONOCYTES % (MANUAL) 5 % (0-11.0); NEUTROPHILS % (MANUAL) 87 (42-76)
[2017-08-27] MEDS: LEVETIRACETAM (500MG) 500 MG in IV NS 0.9% 100 ML IV SCH ×2 (09:12→21:23)
[2017-08-27] MEDS: Z GUARD REMEDY 2 OZ OINT TP SCH (09:13)
[2017-08-27] MEDS: HYDROGEL DRESSING 90 GM TUBE TP SCH (09:13)
[2017-08-27] MEDS: BACITRACIN/POLYMYXIN B 15 GM TUBE TP SCH ×3 (09:14→16:31)
[2017-08-27] MEDS: LORAZEPAM INJ 2 MG/ML VIAL IV SCH ×2 (09:14→21:23)
[2017-08-27] MEDS ORDERED: TPN BAG #13 IV PRN ×10 (12:00)
[2017-08-27] MEDS: PANTOPRAZOLE 40 MG VIAL IV SCH (12:07)
[2017-08-27] MEDS ORDERED: DIATR MEGLU/DIATRIZOATE SODIUM 30 ML BOTTLE (GASTROGRAPHIN) ONE (14:16)
[2017-08-27] MEDS: IV NS 0.9% 250 ML IV PRN (14:21)
--- NOTE | 2017-08-27 14:30 | NUR ---
ICU/RN: PER MD ORDERS KUB DONE WITH GASTROGRAFIN. WILL FOLLOW UP WITH RESULTS.
--- NOTE | 2017-08-27 15:30 | NUR ---
ICU/RN: HEMODIALYSIS STARTED, VSS. WILL CONTINUE TO MONITOR
[2017-08-27] MEDS: TBO-FILGRASTIM 300 MCG/0.5 ML SYRINGE SQ SCH (15:50)
[2017-08-27] MEDS: MORPHINE SULFATE INJ 10 MG/ML DISP.SYRIN IV PRN (16:30)
[2017-08-27] MEDS: VANCOMYCIN 500 MG in IV D5W 100 ML IV PRN (18:00)
--- NOTE | 2017-08-27 18:00 | NUR ---
ICU/RN: POST HD VANCO BEING ADMINISTERED. LEVEL CHECKED, 19.
--- NOTE | 2017-08-27 18:30 | NUR ---
ICU/RN: INFORMED OF KUB RESULTS. PER MD WE ARE TO RESUME MEDS AND WE WILL START FEEDING TOMORROW. WILL ENDORSE TO NIGHT NURSE
--- NOTE | 2017-08-27 19:00 | NUR ---
ICU/RN: REPORT ENDORSED TO HENOK AYALA IN [place]. PT TRANSFERRED. ALL BELONGINGS TRANSFERRED. PT ON VENT SETTINGS ORDERED, NO DISTRESS NOTED. PT ON TELE, SINUS. TPN INFUSING ORDERED. POST HD VANCO GIVEN. PT AFEBRILE. ALL NEEDS MET. PT BATHE, TURNED AND REPOSITIONED. SAFETY MEASURES TAKEN. BED IN LOW POSITION, SIDE RAILS UP, CALL LIGHT WITHIN REACH. Addendum: 08/27/17 at 1912 by JAZZ DYE RN ALL MEDICATIONS AND BELONGINGS TRANSFERRED WITH PT
--- NOTE | 2017-08-27 19:30 | NUR ---
RN NOTES RECEIVED REPORT FROM JAMIE MCKNIGHT FOR PT KRYS. PATIENT TRANSFERRED FROM ICU VIA BED. A/O X1, ABLE TO FOLLOW SIMPLE COMMANDS. ON VENT AC16, TV500, 40% FIO2, 0 PEEP, PORTEX 8. SINUS RHYTHM ON THE MONITOR, HR 80'S. ON DIAPERS ONLY. RIGHT CHEST WALL HD CATH NOTED. LEFT UPPER ARM PICC WITH TPN @ 50MLS/HR, FLUSHED AND PATENT, NO S/S OF INFILTRATION/INFECTION, DRESSING CDI. BED LOW AND LOCKED, SIDERAILS UP, BED ALARM ON. WILL CLOSELY MONITOR
[2017-08-27] MEDS: CEFEPIME 1 GM in IV D5W 50 ML IV SCH (20:34)
[2017-08-27] MEDS: PYRIDOXINE HCL 50 MG TABLET GT SCH (21:23)
[2017-08-27] MEDS ORDERED: POTASSIUM CL. PREMIX PERIPHER. 50 ML IV SCH (23:00)
[2017-08-28] VITALS (7 sets, daily range): BP systolic 105–149; BP diastolic 68–98
[2017-08-28] MEDS: BLOOD SUGAR DIAGNOSTIC 1 EACH STRIP IN SCH ×4 (00:06→17:07)
[2017-08-28] MEDS: diphenhydrAMINE HCL 50 MG/ML VIAL IV PRN (01:07)
[2017-08-28] MEDS: METRONIDAZOLE 500MG/ NS 100ML 500 MG in PREMIX 1 EA IV SCH ×3 (01:07→17:07)
[2017-08-28] MEDS: MORPHINE SULFATE INJ 10 MG/ML DISP.SYRIN IV PRN (02:11)
--- NOTE | 2017-08-28 06:30 | NUR ---
RN CLOSING NOTES PT REMAINS STABLE OF THE MOMENT. ALL DUE MEDS GIVEN, AM CARE PROVIDED. WILL ENDORSE KRYS TO AM RN
[2017-08-28 06:51] LABS: BASOPHILS % (AUTO) 0.2 % (0.0-2.0); EOSINOPHILS # (AUTO) 0.1 /CMM (0.0-0.7); EOSINOPHILS % (AUTO) 2.6 % (0.0-6.0); HEMATOCRIT 24 % (39-51); HEMOGLOBIN 8.1 g/dL (13.5-17.5); LYMPHOCYTES # (AUTO) 0.4 /CMM (0.8-4.8); LYMPHOCYTES % (AUTO) 8.1 % (20.0-44.0); MEAN CORPUSCULAR HEMOGLOBIN 33 PG (26.0-33.0); MEAN CORPUSCULAR HGB CONC 34 g/dl (31.0-36.0); MEAN CORPUSCULAR VOLUME 98 fL (80-96); MONOCYTES # (AUTO) 0.3 /CMM (0.1-1.30); MONOCYTES % (AUTO) 6.5 % (2.0-12.0); NEUTROPHILS % (AUTO) 82.6 % (43.0-81.0); RDW COEFFICIENT OF VARIATION 22.3 (11.5-15.0); RED BLOOD CELL COUNT(AUTO) 2.45 MIL/uL (4.5-6.0); WHITE BLOOD COUNT (AUTO) 4.8 K/uL (4.3-11.0)
[2017-08-28 07:04] LABS: CALCIUM, SERUM 8.3 mg/dL (8.5-10.1); CREATININE 3.8 mg/dL (0.6-1.3); MAGNESIUM 1.9 mg/dL (1.8-2.4); PHOSPHORUS 1.4 mg/dL (2.5-4.9); POTASSIUM 3.5 mmol/L (3.5-5.1)
[2017-08-28 07:19] LABS: PLATELET COUNT (AUTO) 34 /CMM (150-450)
--- NOTE | 2017-08-28 07:30 | NUR ---
PATIENT IN BED A/O X1, ABLE TO FOLLOW SIMPLE COMMANDS. ON VENT AC16, TV500, 40% FIO2, 0 PEEP, PORTEX 8. SINUS RHYTHM ON THE MONITOR, HR 80'S. ON DIAPERS ONLY. RIGHT CHEST WALL HD CATH NOTED. LEFT UPPER ARM PICC WITH TPN @ 50MLS/HR, FLUSHED AND PATENT, NO S/S OF INFILTRATION/INFECTION, DRESSING CDI. BED LOW AND LOCKED, SIDERAILS UP, BED ALARM ON. WILL CLOSELY MONITOR
[2017-08-28] MEDS ORDERED: TPN BAG #13 IV PRN ×10 (07:31)
[2017-08-28] MEDS ORDERED: TPN BAG #14 IV PRN ×10 (08:00)
[2017-08-28 08:22] LABS: BAND % (MANUAL) 8 % (0.0-5.0); EOSINOPHILS % (MANUAL) 4 % (0-4); LYMPHOCYTES % (MANUAL) 4 % (16-48); MONOCYTES % (MANUAL) 2 % (0-11.0); NEUTROPHILS % (MANUAL) 82 (42-76)
[2017-08-28] MEDS: GABAPENTIN 100 MG CAPSULE GT SCH ×2 (08:43→20:39)
[2017-08-28] MEDS: TRAMADOL HCL 50 MG TABLET GT SCH ×2 (08:43→20:39)
[2017-08-28] MEDS: ZINC SULFATE 220 MG CAPSULE GT SCH (08:43)
[2017-08-28] MEDS: SEVELAMER CARBONATE 0.8 GM POWD.PACK GT SCH ×3 (08:43→20:39)
[2017-08-28] MEDS: LACTOBACILLUS RHAMNOSUS GG 1 EACH CAP.SPRINK GT SCH ×2 (08:43→16:13)
[2017-08-28] MEDS: FOLIC ACID 1 MG TABLET GT SCH (08:43)
[2017-08-28] MEDS: VIT B CMPLX 3/FA/VIT C/BIOTIN 1 TAB TABLET GT SCH (08:43)
[2017-08-28] MEDS: LORAZEPAM INJ 2 MG/ML VIAL IV SCH ×2 (08:44→20:39)
[2017-08-28] MEDS: PROSOURCE / PROSTAT (PYXIS) 30 ML UDC GT SCH (08:44)
[2017-08-28] MEDS: HYDROGEL DRESSING 90 GM TUBE TP SCH (08:44)
[2017-08-28] MEDS: BACITRACIN/POLYMYXIN B 15 GM TUBE TP SCH ×3 (09:00→16:10)
[2017-08-28] MEDS: Z GUARD REMEDY 2 OZ OINT TP SCH (09:00)
[2017-08-28] MEDS: LEVETIRACETAM (500MG) 500 MG in IV NS 0.9% 100 ML IV SCH ×2 (09:37→21:56)
[2017-08-28] MEDS: PANTOPRAZOLE 40 MG VIAL IV SCH (11:35)
[2017-08-28] MEDS: INSULIN REGULAR, HUMAN 100 UNIT/ML 3 ML VIAL SQ PRN (11:48)
[2017-08-28] MEDS ORDERED: Sodium Phosphate 15 MMOL in IV D5W 250 ML IV ONE (12:30)
[2017-08-28] MEDS ORDERED: POTASSIUM PHOSPHATE MM 7.5 MMOL in IV D5W 100 ML IV ONE (14:00)
[2017-08-28] MEDS: TBO-FILGRASTIM 300 MCG/0.5 ML SYRINGE SQ SCH (14:32)
--- NOTE | 2017-08-28 19:45 | NUR ---
RN [place] OPENING NOTE PT RECEIVED IN NO ACUTE DISTRESS AT THIS TIME. ON TELE WITH SR 77. FAMILY AT BEDSIDE.
--- NOTE | 2017-08-28 19:45 | NUR ---
RN OPENING NOTE CONTINUED A/O X1 NON-VERBAL. PT IS ANURIC WITH DIAPER. PT IS NPO EXCEPT MEDICATIONS D/T GI BLEED. PT HAS RCW HD CATH AND JOANN PICC LINE RUNNING TPN. GT IS CLEAN DRY AND INTACT WITH NO RESIDUALS NOTED UPON ASSESSMENT. COMFORT AND SAFETY MEASURES TO BE ENSURED DURING THE SHIFT. WILL CONTINUE TO MONITOR FOR ANY CHANGES.
[2017-08-28] MEDS: CEFEPIME 1 GM in IV D5W 50 ML IV SCH (20:38)
[2017-08-28] MEDS: PYRIDOXINE HCL 50 MG TABLET GT SCH (21:56)
[2017-08-29] VITALS: BP 130/82
[2017-08-29] MEDS: BLOOD SUGAR DIAGNOSTIC 1 EACH STRIP IN SCH ×4 (00:05→17:36)
[2017-08-29] MEDS: METRONIDAZOLE 500MG/ NS 100ML 500 MG in PREMIX 1 EA IV SCH ×3 (01:30→17:37)
[2017-08-29 04:00] VITALS: BP 112/67
[2017-08-29 06:52] LABS: CALCIUM, SERUM 8.3 mg/dL (8.5-10.1); CREATININE 4.3 mg/dL (0.6-1.3); PHOSPHORUS 1.7 mg/dL (2.5-4.9); POTASSIUM 3.5 mmol/L (3.5-5.1)
[2017-08-29 08:00] VITALS: BP 133/79
--- NOTE | 2017-08-29 08:00 | NUR ---
TD/RN AM SHIFT INITIAL NOTES RECEIVED PT ASLEEP IN BED, NO ACUTE CHANGE OF CONDITION OR GRIMACING. PT IS OBTUNDED, OPEN EYES. ON VENTILATOR, SET WITH PRESCRIBED RATES, SATURATING @ 100%, LUNG SOUNDS DIMINISHED, SUCTIONED FOR AIRWAY CLEARANCE. ON TELE WITH SINUS RHYTHM, HR 77. NOTED WITH GENERALIZED EDEMA. PICC LINE WITH ON GOING INFUSION OF TPN BAG #14 @ 50CC/HR, NO S/S OF INFECTION. GT-CLAMP. PT IS COMFORTABLE AT TIME, SCHEDULED AM MEDS TO BE GIVEN. CL WITHIN REACHED, SAFETY MAINTAINED AND RESERVE ISOLATION OBSERVED. ON GOING MONITORING.
[2017-08-29] MEDS: PROSOURCE / PROSTAT (PYXIS) 30 ML UDC GT SCH (09:15)
[2017-08-29] MEDS: LACTOBACILLUS RHAMNOSUS GG 1 EACH CAP.SPRINK GT SCH ×2 (09:15→16:51)
[2017-08-29] MEDS: SEVELAMER CARBONATE 0.8 GM POWD.PACK GT SCH ×3 (09:16→21:08)
[2017-08-29] MEDS: HYDROGEL DRESSING 90 GM TUBE TP SCH (09:16)
[2017-08-29] MEDS: TRAMADOL HCL 50 MG TABLET GT SCH ×2 (09:16→21:06)
[2017-08-29] MEDS: ZINC SULFATE 220 MG CAPSULE GT SCH (09:16)
[2017-08-29] MEDS: Z GUARD REMEDY 2 OZ OINT TP SCH (09:16)
[2017-08-29] MEDS: VIT B CMPLX 3/FA/VIT C/BIOTIN 1 TAB TABLET GT SCH (09:16)
[2017-08-29] MEDS: LEVETIRACETAM (500MG) 500 MG in IV NS 0.9% 100 ML IV SCH ×2 (09:17→21:07)
[2017-08-29] MEDS: GABAPENTIN 100 MG CAPSULE GT SCH ×2 (09:17→21:07)
[2017-08-29] MEDS: FOLIC ACID 1 MG TABLET GT SCH (09:17)
[2017-08-29] MEDS: LORAZEPAM INJ 2 MG/ML VIAL IV SCH ×2 (09:18→21:07)
[2017-08-29] MEDS: BACITRACIN/POLYMYXIN B 15 GM TUBE TP SCH (09:32)
--- NOTE | 2017-08-29 10:45 | NUR ---
TD/RN HD TX STARTED DIALYSIS TREATMENT INITIATED. BP 138/81, HR 79. MONITORING.
[2017-08-29 12:00] VITALS: BP 138/71
--- NOTE | 2017-08-29 13:15 | NUR ---
TD/RN HD TX - COMPLETED DIALYSIS TREATMENT COMPLETED. REMOVED 1,600ML. BP 135/69, HR 90. PT TOLERATED PROCEDURE. ON GOING MONITORING.
[2017-08-29] MEDS ORDERED: TPN BAG #15 IV PRN ×10 (13:30)
[2017-08-29] MEDS: PANTOPRAZOLE 40 MG VIAL IV SCH (13:41)
[2017-08-29] MEDS: TBO-FILGRASTIM 300 MCG/0.5 ML SYRINGE SQ SCH (15:09)
--- NOTE | 2017-08-29 15:50 | NUR ---
TD/RN ROUNDS - DR. BANKS PT SEEN & EXAMINED BY DR. BANKS. NO NEW ORDERS RECEIVED AT THIS TIME. MONITORING CONTINUED.
[2017-08-29 16:00] VITALS: BP 105/66
--- NOTE | 2017-08-29 16:12 | NUR ---
TD/RN ROUNDS - ADOPTION MANAGER NICOLE PT SEEN & EXAMINED BY DR. HERNANDEZ'S ADOPTION MANAGER, NICOLE. NO NEW ORDER RECIVED AT THIS TIME. MONITORING CONTINUED.
[2017-08-29] MEDS ORDERED: BISACODYL SUPP (10 MG) 10 MG/SUPP.RECT SUPP.RECT RC STA (16:15)
[2017-08-29] MEDS: SIMETHICONE SUSP 40 MG/0.6 ML BOTTLE GT SCH (16:51)
[2017-08-29] MEDS: INSULIN REGULAR, HUMAN 100 UNIT/ML 3 ML VIAL SQ PRN (17:40)
[2017-08-29 20:00] VITALS: BP 142/100
[2017-08-29] MEDS: CEFEPIME 1 GM in IV D5W 50 ML IV SCH (20:13)
[2017-08-29] MEDS: PYRIDOXINE HCL 50 MG TABLET GT SCH (21:06)
[2017-08-30] VITALS: BP 140/79
[2017-08-30] MEDS: BLOOD SUGAR DIAGNOSTIC 1 EACH STRIP IN SCH ×5 (00:48→23:43)
[2017-08-30] MEDS: INSULIN REGULAR, HUMAN 100 UNIT/ML 3 ML VIAL SQ PRN ×4 (00:53→17:12)
[2017-08-30] MEDS: METRONIDAZOLE 500MG/ NS 100ML 500 MG in PREMIX 1 EA IV SCH ×3 (02:48→17:04)
[2017-08-30 04:00] VITALS: BP 146/89
--- NOTE | 2017-08-30 07:34 | NUR ---
RN CLOSING NOTE PT REMAINS IN NO ACUTE DISTRESS IN BED. PT DID NOT HAVE ANY SIGNIFICANT CHANGE IN CONDITION DURING SHIFT. ALL NEEDS MET, ALL ORDERS CARRIED OUT. PT TOLERATED VENT SETTING WELL. WILL ENDORSE CARE TO AM RN FOR CONTINUITY OF CARE.
[2017-08-30 08:00] VITALS: BP 146/68
--- NOTE | 2017-08-30 08:00 | NUR ---
TD/RN AM SHIFT INITIAL NOTES RECEIVED PT AWAKE IN BED, NO ACUTE CHANGE OF CONDITION OR GRIMACING. PT IS OBTUNDED, OPEN EYES. ON VENTILATOR, SET WITH PRESCRIBED RATES, SATURATING @ 100%, LUNG SOUNDS DIMINISHED, SUCTIONED FOR AIRWAY CLEARANCE. ON TELE WITH SINUS RHYTHM, HR 71. PICC LINE WITH ON GOING INFUSION OF TPN BAG #14 @ 50CC/HR, NO S/S OF INFECTION. GT-CLAMP. DVT PUMP ON, LEGS ELEVATED ON PILLOWS. PT IS COMFORTABLE AT TIME, SCHEDULED AM MEDS TO BE GIVEN. CL WITHIN REACHED, SAFETY MAINTAINED AND RESERVE ISOLATION OBSERVED. ON GOING MONITORING.
[2017-08-30] MEDS: SIMETHICONE SUSP 40 MG/0.6 ML BOTTLE GT SCH ×2 (09:00→16:56)
[2017-08-30] MEDS: PROSOURCE / PROSTAT (PYXIS) 30 ML UDC GT SCH (09:00)
[2017-08-30] MEDS: BACITRACIN/POLYMYXIN B 15 GM TUBE TP SCH (09:00)
[2017-08-30] MEDS: LACTOBACILLUS RHAMNOSUS GG 1 EACH CAP.SPRINK GT SCH ×2 (10:13→16:56)
[2017-08-30] MEDS: TRAMADOL HCL 50 MG TABLET GT SCH ×2 (10:13→21:21)
[2017-08-30] MEDS: FOLIC ACID 1 MG TABLET GT SCH (10:13)
[2017-08-30] MEDS: GABAPENTIN 100 MG CAPSULE GT SCH ×2 (10:13→21:20)
[2017-08-30] MEDS: SEVELAMER CARBONATE 0.8 GM POWD.PACK GT SCH ×3 (10:13→21:20)
[2017-08-30] MEDS: VIT B CMPLX 3/FA/VIT C/BIOTIN 1 TAB TABLET GT SCH (10:14)
[2017-08-30] MEDS: LEVETIRACETAM (500MG) 500 MG in IV NS 0.9% 100 ML IV SCH ×2 (10:14→21:21)
[2017-08-30] MEDS: ZINC SULFATE 220 MG CAPSULE GT SCH (10:14)
[2017-08-30] MEDS: HYDROGEL DRESSING 90 GM TUBE TP SCH (10:15)
[2017-08-30] MEDS: Z GUARD REMEDY 2 OZ OINT TP SCH (10:15)
[2017-08-30] MEDS: LORAZEPAM INJ 2 MG/ML VIAL IV SCH ×2 (10:19→21:21)
[2017-08-30] MEDS ORDERED: TPN BAG #15 IV PRN ×10 (10:30)
[2017-08-30] MEDS ORDERED: IV NS 0.9% 250 ML BAG IV ONE (11:00)
[2017-08-30 12:00] VITALS: BP 160/78
--- NOTE | 2017-08-30 12:00 | NUR ---
TELE1/RN NOON ROUNDS PT SUCTIONED AND REPOSITIONED, NO CHANGE OF CONDITION. ON GOING MONITORING.
[2017-08-30] MEDS: PANTOPRAZOLE 40 MG VIAL IV SCH (12:13)
[2017-08-30 16:00] VITALS: BP 147/38
[2017-08-30 17:05] LABS: BASOPHILS % (AUTO) 0.4 % (0.0-2.0); EOSINOPHILS # (AUTO) 0.1 /CMM (0.0-0.7); EOSINOPHILS % (AUTO) 3.3 % (0.0-6.0); HEMATOCRIT 22 % (39-51); HEMOGLOBIN 7.4 g/dL (13.5-17.5); LYMPHOCYTES # (AUTO) 0.3 /CMM (0.8-4.8); LYMPHOCYTES % (AUTO) 7.7 % (20.0-44.0); MEAN CORPUSCULAR HEMOGLOBIN 33 PG (26.0-33.0); MEAN CORPUSCULAR HGB CONC 34 g/dl (31.0-36.0); MEAN CORPUSCULAR VOLUME 98 fL (80-96); MONOCYTES # (AUTO) 0.3 /CMM (0.1-1.30); MONOCYTES % (AUTO) 8.7 % (2.0-12.0); NEUTROPHILS # (AUTO) 2.8 /CMM (1.8-8.9); NEUTROPHILS % (AUTO) 79.9 % (43.0-81.0); RDW COEFFICIENT OF VARIATION 22.4 (11.5-15.0); RED BLOOD CELL COUNT(AUTO) 2.28 MIL/uL (4.5-6.0); WHITE BLOOD COUNT (AUTO) 3.5 K/uL (4.3-11.0)
[2017-08-30 17:08] LABS: PLATELET COUNT (AUTO) 28 /CMM (150-450)
--- NOTE | 2017-08-30 17:30 | NUR ---
TELE1/RN AFTERNOON ROUNDS PM CARE PROVIDED, NO CHANGE OF CONDITION. MONITORING CONTINUED.
[2017-08-30 18:08] LABS: NEUTROPHILS % (MANUAL) 72 (42-76)
[2017-08-30 18:09] LABS: BAND % (MANUAL) 1 % (0.0-5.0); EOSINOPHILS % (MANUAL) 5 % (0-4); LYMPHOCYTES % (MANUAL) 10 % (16-48); MONOCYTES % (MANUAL) 12 % (0-11.0)
[2017-08-30] MEDS: TBO-FILGRASTIM 300 MCG/0.5 ML SYRINGE SQ SCH (18:29)
--- NOTE | 2017-08-30 19:48 | NUR ---
TELE1/RN AM SHIFT END NOTES ALL NEEDS MET. NO ACUTE CHANGE OF CONDITION NOTED DURING THE SHIFT. PT ENDORSED TO PM NURSE TO CONTINUE CARE. CL WITHIN REACHED, SAFETY MAINTAINED AND REVERSE ISOLATION OBSERVED.
[2017-08-30 20:00] VITALS: BP 165/73
--- NOTE | 2017-08-30 20:00 | NUR ---
RN OPENING NOTES: RECEIVED PT AWAKE IN BED, SPONTANEOUS E[facility] V[facility] SETT[facility] ORDERED, TOLERATING WELL. SUCTIONED PRN FOR AIRWAY CLEARANCE. ON TELE WITH SINUS RHYTHM, HR 85. WITH JOANN PICC LINE WITH ON GOING INFUSION OF TPN BAG #15 @ 50CC/HR, NO S/S OF INFECTION. GT-CLAMP. SAFETY MEASURES ENSURED AT ALL TIMES. ASPIRATION PRECAUTIONS ENSURED. ON REVERSE ISOLATION. CONTINUOUSLY MONITORED.
[2017-08-30] MEDS: CEFEPIME 1 GM in IV D5W 50 ML IV SCH (21:20)
[2017-08-30] MEDS: PYRIDOXINE HCL 50 MG TABLET GT SCH (21:29)
--- NOTE | 2017-08-30 22:30 | NUR ---
RN NOTES: DR HERNANDEZ'S SLOTTER OPERATOR HELPER IN SEEN AND EXAMINED PATIENT. NOTED PLATELET AT 28. WITH ORDERS FOR PLATELET REPLACEMENT OF 1 UNIT/ 1 BAG. NOTED AND CARRIED OUT. ALTHOUGH NO ACTIVE BLEEDING NOTED. CONTINUOUSLY MONITORED PATIENT
[2017-08-31] VITALS (9 sets, daily range): BP systolic 106–166; BP diastolic 46–85
--- NOTE | 2017-08-31 00:30 | NUR ---
RN NOTES: PER BLOOD BANK PLATELETS STILL NEEDED TO BE ORDERED FROM [facility], WILL TAKE ABOUT 4 HOURS. NOTED BLOOD BANK TO INFORM RN.
[2017-08-31] MEDS: METRONIDAZOLE 500MG/ NS 100ML 500 MG in PREMIX 1 EA IV SCH ×3 (02:13→17:27)
--- NOTE | 2017-08-31 04:00 | NUR ---
RN NOTES; PLATELET STARTED, PATIENT NOT IN APPARENT DISTRESS. VITALS DOCUMENTED. BLOOD PRODUCT VERIFIED WITH ANTWAN LAYTON RN. TO CONTINUE TO MONITOR PATIENT ACCORDINGLY. 0500 VERIFIED TPN WELL. TPN WAS SCANNED BUT NOTED EVENTUALLY IT WAS NOTED SAVED COMPUTER FREEZED AND FAILED TO LOAD. VERIFIED WITH MECHELLE RN. TPN GIVEN ORDERED.
[2017-08-31] MEDS: BLOOD SUGAR DIAGNOSTIC 1 EACH STRIP IN SCH ×4 (06:20→23:18)
[2017-08-31] MEDS: IV NS 0.9% 250 ML IV PRN (06:21)
--- NOTE | 2017-08-31 07:00 | NUR ---
RN NOTES RECEIVED PT ON BED, NON VERBAL , OBTUNDED, VENT/ TRACH DEPENDENT , TRACH CARE DONE, TOLERATING CURRENT VENT SETTING WELL, O2 SAT 100% AT THIS TIME , TRACH SUCTIONED FOR AIRWAY CLEARANCE. ON TELE SINUS RHYTHM IN 80'S , LEFT UPPER ARM PICC LINE SITE , CDI, WITH TPN AT 50CC/HR RUNNING , GT-CLAMP. HOB ELEVATED , DVT PUMP IN USED, LEGS ELEVATED ON PILLOWS. CALL LIGHTS WITHIN EASY REACH, SR UP x3, BED LOCKED AND IN LOWEST POSITION , SAFETY MAINTAINED AND RESERVE ISOLATION OBSERVED , CONTINUE TO MONITOR PT CLSOELY AND NOTIFY MD FOR ANY SIGNIFICANT CHANGES
--- NOTE | 2017-08-31 07:00 | NUR ---
RN CLOSING NOTES: PATIENT NOT IN APPARENT DISTRESS. SKIN CARE RENDERED ORDERED AND WOUND PHOTOS FILED. TRACH CARE DONE. REMAINED IN [facility] VENT SETTINGS TOLERATED. IV ACCESS REMAINED INTACT, TPN ONGOING ORDERED. SAFETY MEASURES ENSURED. NO NOTED REACTION FROM PLATELETS. RECEIVED CALL AT 0720 FROM LAB RE PLATELET RESULT NOW AT 13 TRENDING UP EXPECTED. ENDORSED TO AM SHIFT RNSUDHAKAR.
[2017-08-31 07:06] LABS: BASOPHILS % (AUTO) 0.3 % (0.0-2.0); EOSINOPHILS # (AUTO) 0.1 /CMM (0.0-0.7); EOSINOPHILS % (AUTO) 2.2 % (0.0-6.0); HEMATOCRIT 22 % (39-51); HEMOGLOBIN 7.3 g/dL (13.5-17.5); LYMPHOCYTES # (AUTO) 0.4 /CMM (0.8-4.8); LYMPHOCYTES % (AUTO) 7.9 % (20.0-44.0); MEAN CORPUSCULAR HEMOGLOBIN 33 PG (26.0-33.0); MEAN CORPUSCULAR HGB CONC 33 g/dl (31.0-36.0); MEAN CORPUSCULAR VOLUME 98 fL (80-96); MONOCYTES # (AUTO) 0.3 /CMM (0.1-1.30); MONOCYTES % (AUTO) 5.6 % (2.0-12.0); RDW COEFFICIENT OF VARIATION 22.6 (11.5-15.0); RED BLOOD CELL COUNT(AUTO) 2.21 MIL/uL (4.5-6.0); WHITE BLOOD COUNT (AUTO) 4.7 K/uL (4.3-11.0)
[2017-08-31 07:07] LABS: ALBUMIN 2.2 g/dL (3.4-5.0); BILIRUBIN,TOTAL 1.7 mg/dL (0.2-1.0); CALCIUM, SERUM 8.6 mg/dL (8.5-10.1); CREATININE 4.2 mg/dL (0.6-1.3); MAGNESIUM 2.2 mg/dL (1.8-2.4); PHOSPHORUS 1.3 mg/dL (2.5-4.9); POTASSIUM 3.5 mmol/L (3.5-5.1); TOTAL PROTEIN, SERUM 6.3 g/dL (6.4-8.2)
[2017-08-31 07:10] LABS: PLATELET COUNT (AUTO) 31 /CMM (150-450)
[2017-08-31 07:35] LABS: BAND % (MANUAL) 16 % (0.0-5.0); EOSINOPHILS % (MANUAL) 3 % (0-4); LYMPHOCYTES % (MANUAL) 8 % (16-48); MONOCYTES % (MANUAL) 5 % (0-11.0); NEUTROPHILS % (MANUAL) 68 (42-76)
[2017-08-31] MEDS: SEVELAMER CARBONATE 0.8 GM POWD.PACK GT SCH ×3 (08:39→20:44)
[2017-08-31] MEDS: LACTOBACILLUS RHAMNOSUS GG 1 EACH CAP.SPRINK GT SCH ×2 (08:39→17:26)
[2017-08-31] MEDS: VIT B CMPLX 3/FA/VIT C/BIOTIN 1 TAB TABLET GT SCH (08:39)
[2017-08-31] MEDS: ZINC SULFATE 220 MG CAPSULE GT SCH (08:39)
[2017-08-31] MEDS: GABAPENTIN 100 MG CAPSULE GT SCH ×2 (08:39→20:44)
[2017-08-31] MEDS: TRAMADOL HCL 50 MG TABLET GT SCH ×2 (08:40→20:45)
[2017-08-31] MEDS: FOLIC ACID 1 MG TABLET GT SCH (08:40)
[2017-08-31] MEDS: HYDROGEL DRESSING 90 GM TUBE TP SCH (08:44)
[2017-08-31] MEDS: Z GUARD REMEDY 2 OZ OINT TP SCH (08:45)
[2017-08-31] MEDS: SIMETHICONE SUSP 40 MG/0.6 ML BOTTLE GT SCH ×2 (08:45→17:34)
[2017-08-31] MEDS: LEVETIRACETAM (500MG) 500 MG in IV NS 0.9% 100 ML IV SCH ×2 (08:45→21:46)
[2017-08-31] MEDS: PROSOURCE / PROSTAT (PYXIS) 30 ML UDC GT SCH ×2 (08:46→17:33)
[2017-08-31] MEDS: BACITRACIN/POLYMYXIN B 15 GM TUBE TP SCH (08:47)
[2017-08-31] MEDS: LORAZEPAM INJ 2 MG/ML VIAL IV SCH ×2 (10:26→21:47)
[2017-08-31] MEDS: PANTOPRAZOLE 40 MG VIAL IV SCH (10:58)
[2017-08-31] MEDS ORDERED: RENAL NOVASOURCE 1,000 ML BOTTLE GT PRN (11:30)
[2017-08-31] MEDS: INSULIN REGULAR, HUMAN 100 UNIT/ML 3 ML VIAL SQ PRN ×3 (11:45→23:23)
--- NOTE | 2017-08-31 12:50 | NUR ---
RN NOTES TF NOVASOURCE STARTED AT 15CC/HR VIA GT , TPN RATE DECREASED TO 25CC/HR AT THIS TIME , CONTINUE TO MONITOR TF RESIDUAL CLOSELY.
[2017-08-31] MEDS: VANCOMYCIN 500 MG in IV D5W 100 ML IV PRN (14:10)
[2017-08-31] MEDS: TBO-FILGRASTIM 300 MCG/0.5 ML SYRINGE SQ SCH (14:12)
--- NOTE | 2017-08-31 18:00 | NUR ---
RN NOTES NO TF RESIDUAL NOTED, TF INCREASED TO 25CC/HR , TOLERATING TF WELL, TPN DECREASED TO 10CC/HR , PT STABLE , L UPPER ARM PICC LINE CDI, SR UP x3, CALL LIGHT WITHIN EASY REACH, WILL ENDORSE TO EMS DRIVER NURSE FOR KRYS.
--- NOTE | 2017-08-31 19:15 | NUR ---
[employer]P D[employer] SALES OPENING NOTES: RECEIVED PT ON BED, NON VERBAL , OBTUNDED, VENT/ TRACH DEPENDENT ,TOLERATING CURRENT VENT SETTINGS WELL. SETTINGS ARE PORTEX #8, AC 16, TV 500, FI02 40%, PEEP 0. O2 SAT 100% AT THIS TIME , TRACH SUCTIONED FOR AIRWAY CLEARANCE. ON TELE SINUS RHYTHM IN 80'S. LEFT UPPER ARM PICC LINE SITE PATENT AND INTACT. PT HAS RIGHT CHEST WALL HD CATH IN TACT. GT HAS NO RESIDUAL. PT ON NOVASOURCE 25ML/HR AND IS TOLERATING WELL. HOB ELEVATED. LEGS ELEVATED ON PILLOWS. CALL LIGHTS WITHIN EASY REACH, SIDE RAILS UP x3, BED LOCKED AND IN LOWEST POSITION , SAFETY MAINTAINED AND RESERVE ISOLATION OBSERVED. WILL CONTINUE TO MONITOR PT.
--- NOTE | 2017-08-31 19:29 | NUR ---
RN NOTES TPN DISCONTINUED , PT TOLERATING TF WELL AT 25CC/HR AT THIS TIME .
[2017-08-31] MEDS: CEFEPIME 1 GM in IV D5W 50 ML IV SCH (20:44)
[2017-08-31] MEDS: PYRIDOXINE HCL 50 MG TABLET GT SCH (21:46)
[2017-09-01] VITALS: BP 124/64
[2017-09-01] MEDS: METRONIDAZOLE 500MG/ NS 100ML 500 MG in PREMIX 1 EA IV SCH ×3 (01:24→19:41)
[2017-09-01 04:00] VITALS: BP 153/79
[2017-09-01] MEDS: BLOOD SUGAR DIAGNOSTIC 1 EACH STRIP IN SCH ×4 (05:09→23:45)
[2017-09-01] MEDS: INSULIN REGULAR, HUMAN 100 UNIT/ML 3 ML VIAL SQ PRN ×4 (05:37→23:50)
--- NOTE | 2017-09-01 07:00 | NUR ---
RN NOTES RECEIVED PT ON BED, NON VERBAL , OBTUNDED, VENT/ TRACH DEPENDENT , TRACH CARE DONE, TRACH SUCTIONING DONE TO CLEAR AIRWAY , TOLERATING CURRENT VENT SETTING WELL, O2 SAT 99% AT THIS TIME , ON TELE ST HR 107, LEFT UPPER ARM PICC LINE SITE , CDI, TOLERATING TF NOVASOURCE AT 35CC/HR VIA GT WELL , NO RESIDUAL NOTED , DVT PUMP IN USED, LEGS ELEVATED ON PILLOWS. CALL LIGHTS WITHIN EASY REACH, SR UP x3, BED LOCKED AND IN LOWEST POSITION , RESERVE ISOLATION OBSERVED , CONTINUE TO MONITOR PT CLSOELY .
--- NOTE | 2017-09-01 07:19 | NUR ---
MANGLE ROLLER CLOSING NOTES: ALL NEEDS WERE ATTENDED AND ANTICIPATED FOR. PT ON BED, NON VERBAL , OBTUNDED, VENT/ TRACH DEPENDENT ,TOLERATING CURRENT VENT SETTINGS WELL. SETTINGS ARE PORTEX #8, AC 16, TV 500, FI02 40%, PEEP 0. O2 SAT 100% AT THIS TIME , TRACH SUCTIONED FOR AIRWAY CLEARANCE. ON TELE AND READING SHOWS SINUS RHYTHM 89. LEFT UPPER ARM PICC LINE SITE PATENT AND INTACT. PT HAS RIGHT CHEST WALL HD CATH IN TACT. GT HAS NO RESIDUAL. PT ON NOVASOURCE 35ML/HR AND IS TOLERATING WELL. HOB ELEVATED. LEGS ELEVATED ON PILLOWS. CALL LIGHTS WITHIN EASY REACH, SIDE RAILS UP x3, BED LOCKED AND IN LOWEST POSITION , SAFETY MAINTAINED AND RESERVE ISOLATION OBSERVED. ENDORSED TO AM NURSE FOR KRYS.
[2017-09-01 07:37] LABS: BASOPHILS % (AUTO) 0.5 % (0.0-2.0); EOSINOPHILS # (AUTO) 0.2 /CMM (0.0-0.7); HEMATOCRIT 27 % (39-51); HEMOGLOBIN 9.2 g/dL (13.5-17.5); LYMPHOCYTES # (AUTO) 0.9 /CMM (0.8-4.8); MEAN CORPUSCULAR HEMOGLOBIN 33 PG (26.0-33.0); MEAN CORPUSCULAR HGB CONC 34 g/dl (31.0-36.0); MEAN CORPUSCULAR VOLUME 98 fL (80-96); MONOCYTES # (AUTO) 0.3 /CMM (0.1-1.30); MONOCYTES % (AUTO) 4.3 % (2.0-12.0); NEUTROPHILS % (AUTO) 80.2 % (43.0-81.0); RED BLOOD CELL COUNT(AUTO) 2.77 MIL/uL (4.5-6.0); WHITE BLOOD COUNT (AUTO) 7.5 K/uL (4.3-11.0)
[2017-09-01 07:54] LABS: PLATELET COUNT (AUTO) 31 /CMM (150-450)
[2017-09-01 08:00] VITALS: BP 151/83
[2017-09-01 08:03] LABS: CALCIUM, SERUM 8.9 mg/dL (8.5-10.1); CREATININE 4.2 mg/dL (0.6-1.3); MAGNESIUM 2.3 mg/dL (1.8-2.4); PHOSPHORUS 1.2 mg/dL (2.5-4.9); POTASSIUM 3.9 mmol/L (3.5-5.1)
[2017-09-01] MEDS: SEVELAMER CARBONATE 0.8 GM POWD.PACK GT SCH ×3 (08:24→21:08)
[2017-09-01] MEDS: SIMETHICONE SUSP 40 MG/0.6 ML BOTTLE GT SCH ×2 (08:24→17:21)
[2017-09-01] MEDS: TRAMADOL HCL 50 MG TABLET GT SCH ×2 (08:25→21:08)
[2017-09-01] MEDS: VIT B CMPLX 3/FA/VIT C/BIOTIN 1 TAB TABLET GT SCH (08:25)
[2017-09-01] MEDS: ZINC SULFATE 220 MG CAPSULE GT SCH (08:25)
[2017-09-01] MEDS: LACTOBACILLUS RHAMNOSUS GG 1 EACH CAP.SPRINK GT SCH ×2 (08:26→17:19)
[2017-09-01] MEDS: GABAPENTIN 100 MG CAPSULE GT SCH ×2 (08:26→21:08)
[2017-09-01] MEDS: FOLIC ACID 1 MG TABLET GT SCH (08:26)
[2017-09-01] MEDS: HYDROGEL DRESSING 90 GM TUBE TP SCH (08:28)
[2017-09-01] MEDS: BACITRACIN/POLYMYXIN B 15 GM TUBE TP SCH (08:29)
[2017-09-01] MEDS: Z GUARD REMEDY 2 OZ OINT TP SCH (08:30)
[2017-09-01] MEDS: LEVETIRACETAM (500MG) 500 MG in IV NS 0.9% 100 ML IV SCH (08:34)
[2017-09-01] MEDS: PROSOURCE / PROSTAT (PYXIS) 30 ML UDC GT SCH ×2 (09:28→17:19)
[2017-09-01] MEDS: LORAZEPAM INJ 2 MG/ML VIAL IV SCH ×2 (10:12→21:08)
[2017-09-01 11:13] LABS: BAND % (MANUAL) 1 % (0.0-5.0); EOSINOPHILS % (MANUAL) 4 % (0-4); LYMPHOCYTES % (MANUAL) 8 % (16-48); MONOCYTES % (MANUAL) 4 % (0-11.0); NEUTROPHILS % (MANUAL) 83 (42-76)
[2017-09-01] MEDS: PANTOPRAZOLE 40 MG VIAL IV SCH (11:24)
[2017-09-01 12:00] VITALS: BP 117/63
[2017-09-01] MEDS: MORPHINE SULFATE INJ 10 MG/ML DISP.SYRIN IV PRN (15:41)
--- NOTE | 2017-09-01 15:41 | NUR ---
RN NOTES HR IN 140'S , PT USING ACCESSORY MUSCLES TO BREATH, RESPIRATION UP TO 28 BREATH/ MINS . BP= 210/116 ,MORPHINE IV 2 MG GIVEN . ABG AND C- XRAY ORDERED , TRACH SUCTIONING DONE , RT AT THE BEDSIDE, CONTINUE TO MONITOR .
[2017-09-01] MEDS: TBO-FILGRASTIM 300 MCG/0.5 ML SYRINGE SQ SCH (15:44)
[2017-09-01] MEDS: CLONIDINE HCL 0.1MG/24H PTWK 1 EA PATCH TD SCH (15:51)
[2017-09-01] MEDS: LORAZEPAM INJ 2 MG/ML VIAL IV PRN ×2 (15:53→17:28)
--- NOTE | 2017-09-01 15:53 | NUR ---
RT LABORED BREATHING, PT EDEMATUS, SP02 100% HR 145 LA04COD DRAWN INFORMED RN RENAY
[2017-09-01] MEDS: hydrALAZINE HCL IV 20 MG VIAL IV PRN (15:54)
--- NOTE | 2017-09-01 15:54 | NUR ---
RN NOTES HYDRALAZINE 10 MG IV GIVEN , DR CALABRESE PAGED . AWAITING FOR HIS CALL BACK
[2017-09-01 16:00] VITALS: BP_SYST 165; BP_DIAS 52; BP_DIAS 58
[2017-09-01 16:05] LABS: ABG BASE EXCESS 0.3 mmol/L; ABG OXYGEN SATURATION 93.4 % (92.0-98.5); ABG PCO2 51.5 mmHg (35.0-45.0); ABG PH 7.332 (7.350-7.450); ABG PO2 75.4 mmHg (75.0-100.0); AaDO2 150.6 mmHg; COHb 0.2 % (0.5-1.5); MetHb 1.4 % (0.0-1.5); O2Hb 91.9 % (94.0-97.0); PEEP,BG 0 cm H2O; SITE, ABG Right Brachial; VT, ABG 500 mL
[2017-09-01] MEDS: ACETAMINOPHEN 650 MG/20.3 ML UDC GT PRN ×2 (16:28→23:45)
--- NOTE | 2017-09-01 16:42 | NUR ---
RN NOTES PT RESPIRATING RATE IS 28 . O2 SAT 96%, PT STILL USING ACCESSORY MUSCLES TO BREATH, FAMILY AT THE BEDSIDE , AF=572/58 ,T =100.0 AXILLARY , TYLENOL 650 GIVEN .CONTINUE TO MONITOR.
--- NOTE | 2017-09-01 17:08 | NUR ---
RN NOTES ORDER RECEIVED FROM DR. CALABRESE TO NOTIFY DR ARCINIEGA AND DO BCx2 SETS AND URINE CULTURE , AND INCREASED THE PEEP TO 5 . RT NOTIFIED. BP =145/65 AT THIS TIME , BERATING RATE 26 / MINTS. T=99.0 AXILLARY . HR IN 130'S, CONTINUE TO MONITOR PT CLOSELY.
--- NOTE | 2017-09-01 17:13 | NUR ---
RN NOTES T=98.9 AXILLARY ,ORDER RECEIVED FROM DR ARCINIEGA FOR ATIVAN 2MG IV . DR ARCINIEGA NOTIFIED REGARDING ABG RESULTS . HR IN 120'S AT THIS TIME .CONTINUE TO MONITOR.
--- NOTE | 2017-09-01 17:17 | NUR ---
RT ADD A PEEP OF 5 PER LORENE AYALA AND DR HUGHES Addendum: 09/01/17 at 1718 by JHONY THOMPSON RT Amended: Links added.
[2017-09-01] MEDS ORDERED: Sodium Phosphate 15 MMOL in IV D5W 250 ML IV ONE (17:30)
--- NOTE | 2017-09-01 17:40 | NUR ---
RN NOTES BP= 129/56, HR 117 T =98.6 , PT'S RESPIRATION IS 24, 02 SAT 98%, CONTINUE TO MONITOR.
--- NOTE | 2017-09-01 18:30 | NUR ---
RN NOTES O2 SAT 98%, RESPIRATION RATE 22 , TOLERATING TF WELL, BP= 128/60 , T =97.6 AXILLARY , SUPPORTIVE FAMILY AT THE BEDSIDE, WILL ENDORSE TO COMPUTER ANIMATOR NURSE FOR KRYS.
--- NOTE | 2017-09-01 19:06 | NUR ---
RN NOTES DID NOT RECEIVED 1800 IV FLAGYL FROM PHARMACY YET , PHARMACY NOTIFIED x3.
[2017-09-01] MEDS: Potassium Phosphate meq 11 MEQ in IV D5W 100 ML IV SCH ×2 (19:41→22:30)
--- NOTE | 2017-09-01 19:53 | NUR ---
TELE-1/DIVIDER OPERATOR PT RESTING IN BED WITH FAMILY AT BEDSIDE. PT APPEARS COMFORTABLE, EYES CLOSED, RESPIRATIONS EVEN AND UNLABORED. TOLERATING CURRENT VENT SETTING. VSS TEMP 97.9,HEART RATE 94 NSR, RESPIRATIONS 17, SPO2 100%, BLOOD PRESSURE 127/56. PICC LINE DRESSING INTACT AND CLEAN. NOVASOURCE RUNNING AT 35mL/HR, WITH LESS THAN 5mL RESIDUAL. PT REPOSITIONED FOR COMFORT. WILL CONTINUE TO MONITOR CLOSELY.
[2017-09-01 20:00] VITALS: BP 127/56
[2017-09-01] MEDS: CEFEPIME 1 GM in IV D5W 50 ML IV SCH (21:07)
[2017-09-01] MEDS: PYRIDOXINE HCL 50 MG TABLET GT SCH (21:08)
[2017-09-01] MEDS: LEVETIRACETAM SOL (5 ML) 100 MG/ML UDC NG SCH (21:08)
[2017-09-01] MEDS: diphenhydrAMINE HCL 50 MG/ML VIAL IV PRN (22:30)
[2017-09-02] VITALS (9 sets, daily range): BP systolic 127–159; BP diastolic 52–84
[2017-09-02] MEDS: METRONIDAZOLE 500MG/ NS 100ML 500 MG in PREMIX 1 EA IV SCH ×3 (01:55→19:01)
[2017-09-02] MEDS: LORAZEPAM INJ 2 MG/ML VIAL IV PRN (01:55)
--- NOTE | 2017-09-02 05:05 | NUR ---
TELE-1/GROCERY STORE MANAGER DURING AM CARE PT GTUBE BALLOON BECAME DISLODGED AND IS ABOUT 50% PROTRUDING FROM [facility]. PRESSURE DRESSING WAS APPLIED TO KEEP GTUBE IN PLACE FOR PATENCY. DR. HERNANDEZ WAS CALLED AND MESSAGE WAS LEFT. I WILL DISCONTINUE GT FEEDING AND GT MEDS UNTIL FURTHER NOTICE. WILL CONTINUE TO MONITOR CLOSELY. WILL ENDORSE TO AM SHIFT. AWAITING CALL BACK FROM DR. HERNANDEZ.
[2017-09-02] MEDS: BLOOD SUGAR DIAGNOSTIC 1 EACH STRIP IN SCH ×4 (06:12→23:26)
[2017-09-02] MEDS: INSULIN REGULAR, HUMAN 100 UNIT/ML 3 ML VIAL SQ PRN ×2 (06:16→23:37)
--- NOTE | 2017-09-02 06:42 | NUR ---
TELE-1/AGRICULTURIST STILL AWAITING CALL BACK FROM DR. HERNANDEZ. PT RESTING IN BED, RESPIRATIONS EVEN AND UNLABORED, HEART RATE 71. TOLERATING CURRENT VENT SETTING. WILL ENDORSE GTUBE STATUS TO AM SHIFT. WILL CONTINUE TO MONITOR.
[2017-09-02 07:20] LABS: EOSINOPHILS # (AUTO) 0.1 /CMM (0.0-0.7); EOSINOPHILS % (AUTO) 1.8 % (0.0-6.0); HEMATOCRIT 21 % (39-51); HEMOGLOBIN 7.1 g/dL (13.5-17.5); LYMPHOCYTES # (AUTO) 0.3 /CMM (0.8-4.8); LYMPHOCYTES % (AUTO) 4.2 % (20.0-44.0); MEAN CORPUSCULAR HEMOGLOBIN 34 PG (26.0-33.0); MEAN CORPUSCULAR HGB CONC 34 g/dl (31.0-36.0); MEAN CORPUSCULAR VOLUME 99 fL (80-96); MONOCYTES # (AUTO) 0.3 /CMM (0.1-1.30); MONOCYTES % (AUTO) 4.2 % (2.0-12.0); NEUTROPHILS # (AUTO) 6.1 /CMM (1.8-8.9); NEUTROPHILS % (AUTO) 89.8 % (43.0-81.0); RDW COEFFICIENT OF VARIATION 23.4 (11.5-15.0); RED BLOOD CELL COUNT(AUTO) 2.12 MIL/uL (4.5-6.0); WHITE BLOOD COUNT (AUTO) 6.8 K/uL (4.3-11.0)
[2017-09-02 08:03] LABS: PLATELET COUNT (AUTO) 24 /CMM (150-450)
[2017-09-02 08:15] LABS: CALCIUM, SERUM 8.3 mg/dL (8.5-10.1); CREATININE 4.7 mg/dL (0.6-1.3); POTASSIUM 3.6 mmol/L (3.5-5.1)
[2017-09-02] MEDS: SEVELAMER CARBONATE 0.8 GM POWD.PACK GT SCH ×3 (09:00→20:33)
[2017-09-02] MEDS: SIMETHICONE SUSP 40 MG/0.6 ML BOTTLE GT SCH ×2 (09:00→19:00)
[2017-09-02] MEDS: ZINC SULFATE 220 MG CAPSULE GT SCH (09:00)
[2017-09-02] MEDS: TRAMADOL HCL 50 MG TABLET GT SCH ×2 (09:00→20:33)
[2017-09-02] MEDS: LEVETIRACETAM SOL (5 ML) 100 MG/ML UDC NG SCH ×2 (09:00→20:33)
[2017-09-02] MEDS: VIT B CMPLX 3/FA/VIT C/BIOTIN 1 TAB TABLET GT SCH (09:00)
[2017-09-02] MEDS: GABAPENTIN 100 MG CAPSULE GT SCH ×2 (09:00→20:33)
[2017-09-02] MEDS: LACTOBACILLUS RHAMNOSUS GG 1 EACH CAP.SPRINK GT SCH ×2 (09:00→19:00)
[2017-09-02] MEDS: FOLIC ACID 1 MG TABLET GT SCH (09:00)
[2017-09-02] MEDS: PROSOURCE / PROSTAT (PYXIS) 30 ML UDC GT SCH ×2 (09:00→19:00)
[2017-09-02] MEDS: LORAZEPAM INJ 2 MG/ML VIAL IV SCH ×2 (10:36→20:34)
[2017-09-02] MEDS: PANTOPRAZOLE 40 MG VIAL IV SCH (10:36)
[2017-09-02] MEDS ORDERED: IV D5/ 0.9% NACL 1,000 ML IV PRN (10:42)
[2017-09-02] MEDS: Z GUARD REMEDY 2 OZ OINT TP SCH (10:47)
[2017-09-02] MEDS: HYDROGEL DRESSING 90 GM TUBE TP SCH (10:47)
[2017-09-02] MEDS: BACITRACIN/POLYMYXIN B 15 GM TUBE TP SCH (10:48)
--- NOTE | 2017-09-02 11:09 | NUR ---
RN NOTE; PRIMARY DR SCHWARTZ INFORMED ABOUT THE G TUBE BALLOON PROTUDE IN AM AROUND 0600 AM , PRESSURE DRESSING INTACT AT THIS TIME . ALL AM MEDS G TUBE HELD FOR G TUBE CLAMPED STATUS. RECEIVED NEW ORDER FOR D5NS @ 75 AT THIS TIME , GI DR HERNANDEZ PAGED TO INFORM THE G TUBE STATUS , AWAITING CALL BACK, WILL MONITOR PATIENT.
[2017-09-02 11:16] LABS: BAND % (MANUAL) 10 % (0.0-5.0); EOSINOPHILS % (MANUAL) 1 % (0-4); LYMPHOCYTES % (MANUAL) 3 % (16-48); MONOCYTES % (MANUAL) 3 % (0-11.0); NEUTROPHILS % (MANUAL) 83 (42-76)
--- NOTE | 2017-09-02 12:50 | NUR ---
RN NOTE; RECEIVED ORDER FOR EGD AND PEG PLACEMENT , TELEPHONE CONSENT GIVEN BY DAUGHTER BERHANE COLLIER , COSIGNED BY JAMIE ROBISON . RE; LOW PLATELET LEVEL RECEIVED ORDER FROM NURSE PRACTITIONER LEONEL TO TRANSFUSE 1 UNIT OF FFP STAT AND ONE UNIT OF PLATELET WHEN AVAILABLE BUT AFTER CLARIFYING WITH DR HERNANDEZ . CALLED BLOOD BANK , AWAITING FFP TO BE READY .
--- NOTE | 2017-09-02 13:45 | NUR ---
RN NOTE; FFP TRANSFUSION COMPLETED. TOLERATED WELL , NO TRANSFUSION REACTION NOTED.
--- NOTE | 2017-09-02 14:14 | NUR ---
RN NOTE; DIALYSIS NURSE AT BED SIDE TO DIALYZE THE PATIENT , CALLED OR AND ASK IF HE CAN DIALYZE BEFORE THE PROCEDURE , OR NURSE ASKED DR HERNANDEZ AND RECEIVED ORDER TO DIALYZE AFTER THE EGD AND G TUBE PLACEMENT PROCEDURE ONLY TO PREVENT GETTING HYPOTENSIVE . DIALYSIS NURSE AWARE .
--- NOTE | 2017-09-02 14:21 | NUR ---
RN NOTE; F/O WITH BLOOD BANK , FFP STILL NOT READY , AWAITING .
--- NOTE | 2017-09-02 14:51 | NUR ---
RN NOTE; DR HERNANDEZ AND OR CREW AT THE BED SITE DOING EGD AND G TUBE PLACEMENT . FFP TRANSFUSION STARTED , WILL MONITOR TRANSFUSION REACTION , ALSO RECEIVED NEW ORDER TO GIVE ONE UNIT OF PLATELET .
--- NOTE | 2017-09-02 15:07 | NUR ---
RN NOTE; PATIENT TOLERATED PROCEDURE WELL , V/S WITHIN NORMAL RANGE. FFP STILL CONTINUE , NO TRANSFUSION REACTION NOTED YET , WILL CONTINUE OT MONITOR,
[2017-09-02] MEDS ORDERED: TPN/PPN PER PHARMACY XX PRN (17:00)
[2017-09-02] MEDS ORDERED: ALBUMIN 25% 25 GM in PREMIX 1 EA IV ONE (17:30)
[2017-09-02] MEDS: TBO-FILGRASTIM 300 MCG/0.5 ML SYRINGE SQ SCH (18:47)
--- NOTE | 2017-09-02 19:30 | NUR ---
ASSISTANT COUNTY ATTORNEY INITIAL NOTE PT RECEIVED WITH FAMILY AT BEDSIDE. A/O X1 AND NONVERBAL. ON MECH VENT AND SETTINGS WELL TOLERATED SATURATING 100% AT THIS TIME. NO SOB NOTED. TELE-SR 83. HOB ELEVATED. IV SITE JOANN PICC CLEAN, DRY AND FLUSHING WELL. ENDORSED TO START TPN AND GIVE VANCOMYCIN IV POST DIALYSIS. GTUBE CLEAN, FLUSHING WELL AND ONLY USED FOR MEDS AT THIS TIME. FEEDING TO BE HELD FOR 72 HOURS. RCW HD CATH CLEAN AND IN PLACE. REVERSE ISOLATION PRECAUTIONS OBSERVED. INFORMED FAMILY TO USE APPROPRIATE ISOLATION EQUIPMENT WHEN VISITING PT AND FAMILY VERBALIZED UNDERSTANDING. CALL LIGHT WITHIN REACH. WILL CONTINUE TO MONITOR.
[2017-09-02] MEDS: VANCOMYCIN 500 MG in IV D5W 100 ML IV PRN (19:53)
--- NOTE | 2017-09-02 19:58 | NUR ---
RN EOS NOTE; DIALYSIS DONE BY DIALYSIS NURSE , 2 LTR OUTPUT. PT TOLERATED PROCEDURE WELL. ENDORSE NEXT SHIFT RN TO GIVE VANCO POST HD AND TO START TPN ORDERED .
[2017-09-02] MEDS ORDERED: TPN BAG #1 IV PRN ×10 (20:00)
--- NOTE | 2017-09-02 20:00 | NUR ---
SENIOR IOS DEVELOPER NOTE TPN STARTED AT 50MLS/HR THROUGH JOANN PICC. VANCOMYCIN IV POST HD ALSO STARTED.
[2017-09-02] MEDS: CEFEPIME 1 GM in IV D5W 50 ML IV SCH (20:33)
[2017-09-02] MEDS: PYRIDOXINE HCL 50 MG TABLET GT SCH (21:23)
[2017-09-03] VITALS (22 sets, daily range): BP systolic 138–169; BP diastolic 66–90
[2017-09-03] MEDS: METRONIDAZOLE 500MG/ NS 100ML 500 MG in PREMIX 1 EA IV SCH ×3 (01:42→17:44)
[2017-09-03] MEDS: IV NS 0.9% 250 ML IV PRN (03:00)
[2017-09-03] MEDS: ACETAMINOPHEN 650 MG/20.3 ML UDC GT PRN ×2 (03:13→13:27)
[2017-09-03] MEDS: BLOOD SUGAR DIAGNOSTIC 1 EACH STRIP IN SCH ×4 (05:53→23:04)
[2017-09-03] MEDS: LORAZEPAM INJ 2 MG/ML VIAL IV PRN ×2 (05:58→17:00)
--- NOTE | 2017-09-03 06:00 | NUR ---
RN NOTE PT RECEIVED 1 UNIT OF PLATELETS. VITAL SIGNS REMAINED WNL. TRANSFUSION WELL TOLERATED AND NO REACTION NOTED.
--- NOTE | 2017-09-03 07:00 | NUR ---
RN NOTE RECEIVED PT ON BED, NONVERBAL, VENT/ TRACH DEPENDENT , TRACH CARE DONE, TOLERATING CURRENT VENT SETTING WELL, ON TELE SR IN 70'S , TPN AT 50CC/HR RUNNING VIA L UPPER ARM PICC LINE, GT CLAMPED AT THIS TIME ,HOB ELEVATED. R CW HD CATH CLEAN AND IN PLACE. REVERSE ISOLATION IN PLACE, SR UP x3, CALL LIGHT WITHIN EASY REACH. BED LOCKED AND IN LOWEST POSITION , WILL CONTINUE TO MONITOR CLSOELY
--- NOTE | 2017-09-03 07:23 | NUR ---
INVENTORY CONTROL ASSOCIATE CLOSING NOTE PT REMAINED STABLE DURING SHIFT. NO ACUTE DISTRESS NOTED. VENT SETTINGS WELL TOLERATED. REVERSE ISOLATION MAINTAINED. TPN INFUSING AT THIS TIME. IV DRY AND IN PLACE. REPOSITIONED Q2H. HOB ELEVATED. GTUBE REMAINED IN PLACE WITH PRESSURE DRESSING. WOUND TREATMENT PERFORMED ORDERED. ALL DUE MEDS GIVEN ORDERED AND WELL TOLERATED. KEPT CLEAN AND DRY. WILL ENDORSE TO NEXT SHIFT FOR KRYS.
--- NOTE | 2017-09-03 07:31 | NUR ---
RT PATIENT REC'D TRACHED ON [facility] VENT WITH SETTINGS SET BY TOLERATED WELL. VENT ALARMS CHECKED + AUDIBLE. TRACH SECURE AND IN PROPER POSITION. CUFF CHECKED COLLAR RUNNER. PATIENT SUCTIONED WITH SMALL/MOD AMT PALE SEMITHICK SECRETIONS. B/S DIM COARSE. PATIENT APPEARS COMFORTABLE AND IN NO DISTRESS AT THIS TIME. VENT PLUGGED INTO RED OUTLET. AMBU BAG AT [facility]. CONT CURRENT PLAN OF RESP CARE. Addendum: 09/03/17 at 0831 by NICKOLAS NORRIS RT Amended: Links added.
[2017-09-03 07:38] LABS: CALCIUM, SERUM 8.3 mg/dL (8.5-10.1); MAGNESIUM 2.2 mg/dL (1.8-2.4); PHOSPHORUS 1.8 mg/dL (2.5-4.9); POTASSIUM 3.3 mmol/L (3.5-5.1)
[2017-09-03] MEDS: SEVELAMER CARBONATE 0.8 GM POWD.PACK GT SCH ×3 (08:02→20:47)
[2017-09-03] MEDS: LACTOBACILLUS RHAMNOSUS GG 1 EACH CAP.SPRINK GT SCH ×2 (08:03→16:31)
[2017-09-03] MEDS: FOLIC ACID 1 MG TABLET GT SCH (08:03)
[2017-09-03] MEDS: ZINC SULFATE 220 MG CAPSULE GT SCH (08:03)
[2017-09-03] MEDS: VIT B CMPLX 3/FA/VIT C/BIOTIN 1 TAB TABLET GT SCH (08:03)
[2017-09-03] MEDS: TRAMADOL HCL 50 MG TABLET GT SCH ×2 (08:03→20:48)
[2017-09-03] MEDS: PROSOURCE / PROSTAT (PYXIS) 30 ML UDC GT SCH ×2 (08:05→16:32)
[2017-09-03] MEDS: SIMETHICONE SUSP 40 MG/0.6 ML BOTTLE GT SCH ×2 (08:06→16:33)
[2017-09-03] MEDS: GABAPENTIN 100 MG CAPSULE GT SCH ×2 (08:07→20:47)
[2017-09-03] MEDS: HYDROGEL DRESSING 90 GM TUBE TP SCH (08:08)
[2017-09-03] MEDS: Z GUARD REMEDY 2 OZ OINT TP SCH (08:08)
[2017-09-03] MEDS: BACITRACIN/POLYMYXIN B 15 GM TUBE TP SCH (08:09)
[2017-09-03] MEDS: LEVETIRACETAM SOL (5 ML) 100 MG/ML UDC NG SCH ×2 (09:06→20:47)
[2017-09-03] MEDS: LORAZEPAM INJ 2 MG/ML VIAL IV SCH ×2 (09:07→20:48)
[2017-09-03] MEDS ORDERED: TPN BAG #3 IV PRN ×10 (11:00)
[2017-09-03] MEDS ORDERED: TPN BAG #2 IV PRN ×10 (11:00)
[2017-09-03] MEDS: INSULIN REGULAR, HUMAN 100 UNIT/ML 3 ML VIAL SQ PRN ×2 (11:30→17:44)
[2017-09-03] MEDS: PANTOPRAZOLE 40 MG VIAL IV SCH (11:32)
[2017-09-03 15:18] LABS: BASOPHILS % (AUTO) 0.2 % (0.0-2.0); EOSINOPHILS # (AUTO) 0.2 /CMM (0.0-0.7); EOSINOPHILS % (AUTO) 2.4 % (0.0-6.0); LYMPHOCYTES # (AUTO) 0.4 /CMM (0.8-4.8); LYMPHOCYTES % (AUTO) 5.2 % (20.0-44.0); MEAN CORPUSCULAR HEMOGLOBIN 33 PG (26.0-33.0); MEAN CORPUSCULAR HGB CONC 33 g/dl (31.0-36.0); MEAN CORPUSCULAR VOLUME 100 fL (80-96); MONOCYTES # (AUTO) 0.1 /CMM (0.1-1.30); NEUTROPHILS # (AUTO) 6.5 /CMM (1.8-8.9); NEUTROPHILS % (AUTO) 90.2 % (43.0-81.0); RDW COEFFICIENT OF VARIATION 23.7 (11.5-15.0); RED BLOOD CELL COUNT(AUTO) 2.02 MIL/uL (4.5-6.0); WHITE BLOOD COUNT (AUTO) 7.2 K/uL (4.3-11.0)
[2017-09-03 15:37] LABS: HEMATOCRIT 20 % (39-51)
[2017-09-03 15:38] LABS: HEMOGLOBIN 6.7 g/dL (13.5-17.5); PLATELET COUNT (AUTO) 28 /CMM (150-450)
--- NOTE | 2017-09-03 16:16 | NUR ---
RN NOTES FIRST UNIT OF PRBC STARTED ,PT STABLE , CONTINUE TO MONITOR.
[2017-09-03] MEDS: hydrALAZINE HCL IV 20 MG VIAL IV PRN ×2 (16:19→21:55)
[2017-09-03] MEDS: TBO-FILGRASTIM 300 MCG/0.5 ML SYRINGE SQ SCH (16:31)
[2017-09-03 17:50] LABS: BAND % (MANUAL) 1 % (0.0-5.0); EOSINOPHILS % (MANUAL) 4 % (0-4); LYMPHOCYTES % (MANUAL) 8 % (16-48); MONOCYTES % (MANUAL) 5 % (0-11.0); NEUTROPHILS % (MANUAL) 82 (42-76)
--- NOTE | 2017-09-03 18:16 | NUR ---
RN NOTES PT RECEIVING FIRST UNIT OF PRBC , VSS STABLE , TOLERATING CURRENT VENT SETTING WELL, SECOND BAG OF TPN RUNNING AT 50 CC/ HR VIA L UPPER ARM PICC LINE , SR UP x3, SUPPORTIVE FAMILY AT THE BEDSIDE, WILL ENDORSE TO ENVIRONMENTAL PROTECTION SPECIALIST RN FOR KRYS .
--- NOTE | 2017-09-03 19:30 | NUR ---
VACUUM PAN OPERATOR INITIAL NOTE PT RECEIVED IN BED RECEIVING 1 UNIT OF BLOOD AT THIS TIME. A/O X1 AND NONVERBAL. ON MECH VENT AND SETTINGS WELL TOLERATED SATURATING 100%. NO SOB NOTED. TELE-SR 77. HOB ELEVATED. IV SITE JOANN PICC CLEAN, DRY AND FLUSHING WELL. ENDORSED TO GIVE SECOND UNIT OF BLOOD WHEN THE FIRST BAG IS DONE. GTUBE CLEAN, FLUSHING WELL AND ONLY USED FOR MEDS AT THIS TIME. FEEDING TO BE HELD FOR 72 HOURS. RCW HD CATH CLEAN AND IN PLACE. REVERSE ISOLATION PRECAUTIONS OBSERVED. CALL LIGHT WITHIN REACH. WILL CONTINUE TO MONITOR.
[2017-09-03] MEDS: CEFEPIME 1 GM in IV D5W 50 ML IV SCH (20:17)
[2017-09-03] MEDS: PYRIDOXINE HCL 50 MG TABLET GT SCH (21:53)
[2017-09-03] MEDS: diphenhydrAMINE HCL 50 MG/ML VIAL IV PRN (23:55)
[2017-09-04] VITALS (7 sets, daily range): BP systolic 142–175; BP diastolic 67–82
[2017-09-04] MEDS: METRONIDAZOLE 500MG/ NS 100ML 500 MG in PREMIX 1 EA IV SCH ×3 (01:14→16:42)
[2017-09-04] MEDS: BLOOD SUGAR DIAGNOSTIC 1 EACH STRIP IN SCH ×3 (05:37→16:42)
[2017-09-04] MEDS: INSULIN REGULAR, HUMAN 100 UNIT/ML 3 ML VIAL SQ PRN ×3 (05:40→16:45)
[2017-09-04 06:51] LABS: BASOPHILS % (AUTO) 0.1 % (0.0-2.0); EOSINOPHILS # (AUTO) 0.3 /CMM (0.0-0.7); EOSINOPHILS % (AUTO) 3.3 % (0.0-6.0); HEMATOCRIT 28 % (39-51); HEMOGLOBIN 9.5 g/dL (13.5-17.5); LYMPHOCYTES # (AUTO) 0.4 /CMM (0.8-4.8); LYMPHOCYTES % (AUTO) 5.2 % (20.0-44.0); MEAN CORPUSCULAR HEMOGLOBIN 33 PG (26.0-33.0); MEAN CORPUSCULAR HGB CONC 34 g/dl (31.0-36.0); MEAN CORPUSCULAR VOLUME 97 fL (80-96); MONOCYTES # (AUTO) 0.1 /CMM (0.1-1.30); MONOCYTES % (AUTO) 1.2 % (2.0-12.0); NEUTROPHILS # (AUTO) 7.3 /CMM (1.8-8.9); NEUTROPHILS % (AUTO) 90.2 % (43.0-81.0); RDW COEFFICIENT OF VARIATION 21.4 (11.5-15.0); RED BLOOD CELL COUNT(AUTO) 2.88 MIL/uL (4.5-6.0)
[2017-09-04 07:06] LABS: PLATELET COUNT (AUTO) 30 /CMM (150-450)
[2017-09-04 07:09] LABS: CALCIUM, SERUM 8.4 mg/dL (8.5-10.1); CREATININE 4.4 mg/dL (0.6-1.3)
--- NOTE | 2017-09-04 07:10 | NUR ---
RN INITIAL NOTE PATIENT RECEIVED AWAKE, ALERT, UNRESPONSIVE. PATIENT IS NON-VERBAL. NO S/S OF PAIN OR DISCOMFORT. PATIENT HAS TRACH: PORTEX #8, TOLERATING VENT SETTINGS WELL. NO S/S OF RESPIRATORY DISTRESS OR SOB. SINUS RHYTHM ON TELE MONITOR. SKIN IS WARM AND DRY TO TOUCH. IV SITE FLUSHED, PATENT. GTUBE FLUSHED, PATENT, PLACEMENT VERIFIED. ON NPO STATUS. SAFETY PRECAUTIONS IMPLEMENTED. BED IN LOCKED, LOW POSITION WITH TWO SIDE RAILS UP. CALL LIGHT AND BELONGINGS WITHIN EASY REACH. WILL CONTINUE TO MONITOR.
--- NOTE | 2017-09-04 07:20 | NUR ---
ARCH SUPPORT MAKER CLOSING NOTE PT REMAINED STABLE DURING SHIFT. NO ACUTE DISTRESS NOTED. VENT SETTINGS WELL TOLERATED. REVERSE ISOLATION MAINTAINED. ATIVAN ALSO GIVEN PRN D/T ANXIETY.TPN INFUSING AT THIS TIME. IV DRY AND IN PLACE. 1 UNIT OF PRBC GIVEN AND WELL TOLERATED.BLOOD PRESSURE ELEVATED AND HYDRALAZINE IVP GIVEN PRN X1 FOR ELEVATED BLOOD PRESSURE . RECHECKED AND BP WENT DOWN TO 155/72. REPOSITIONED Q2H. HOB ELEVATED. GTUBE REMAINED IN PLACE WITH DRESSING. WOUND TREATMENT PERFORMED ORDERED. ALL DUE MEDS GIVEN ORDERED AND WELL TOLERATED. PT NOTED WITH ITCHINESS AND BENADRYL 25MG IVP GIVEN ORDERED. KEPT CLEAN AND DRY. WILL ENDORSE TO NEXT SHIFT FOR KRYS.
[2017-09-04] MEDS: PANTOPRAZOLE 40 MG VIAL IV SCH (08:45)
[2017-09-04] MEDS: SEVELAMER CARBONATE 0.8 GM POWD.PACK GT SCH ×3 (08:45→22:13)
[2017-09-04] MEDS: VIT B CMPLX 3/FA/VIT C/BIOTIN 1 TAB TABLET GT SCH (08:45)
[2017-09-04] MEDS: GABAPENTIN 100 MG CAPSULE GT SCH ×2 (08:46→21:04)
[2017-09-04] MEDS: TRAMADOL HCL 50 MG TABLET GT SCH ×2 (08:46→21:04)
[2017-09-04] MEDS: Z GUARD REMEDY 2 OZ OINT TP SCH (08:46)
[2017-09-04] MEDS: LORAZEPAM INJ 2 MG/ML VIAL IV SCH ×2 (08:46→21:04)
[2017-09-04] MEDS: FOLIC ACID 1 MG TABLET GT SCH (08:46)
[2017-09-04] MEDS: BACITRACIN/POLYMYXIN B 15 GM TUBE TP SCH (08:46)
[2017-09-04] MEDS: LACTOBACILLUS RHAMNOSUS GG 1 EACH CAP.SPRINK GT SCH ×2 (08:46→16:41)
[2017-09-04] MEDS: SIMETHICONE SUSP 40 MG/0.6 ML BOTTLE GT SCH ×2 (08:46→16:44)
[2017-09-04] MEDS: LEVETIRACETAM SOL (5 ML) 100 MG/ML UDC NG SCH ×2 (08:46→21:05)
[2017-09-04] MEDS: ZINC SULFATE 220 MG CAPSULE GT SCH (08:46)
[2017-09-04] MEDS: PROSOURCE / PROSTAT (PYXIS) 30 ML UDC GT SCH ×2 (08:47→16:41)
[2017-09-04] MEDS: HYDROGEL DRESSING 90 GM TUBE TP SCH (09:00)
[2017-09-04 09:21] LABS: BAND % (MANUAL) 8 % (0.0-5.0); EOSINOPHILS % (MANUAL) 3 % (0-4); LYMPHOCYTES % (MANUAL) 8 % (16-48); MONOCYTES % (MANUAL) 3 % (0-11.0); NEUTROPHILS % (MANUAL) 78 (42-76)
[2017-09-04] MEDS ORDERED: TPN BAG #3 IV PRN ×10 (12:09)
[2017-09-04] MEDS ORDERED: TPN ABG IV PRN ×10 (12:30)
[2017-09-04] MEDS: TBO-FILGRASTIM 300 MCG/0.5 ML SYRINGE SQ SCH (16:41)
--- NOTE | 2017-09-04 19:17 | NUR ---
RN CLOSING NOTE ALL MD ORDERS CARRIED OUT. PATIENTS NEEDS ANTICIPATED. PATIENT REMAINED STABLE DURING SHIFT. WILL GIVE REPORT TO PM RN FOR KRYS
[2017-09-04] MEDS: CEFEPIME 1 GM in IV D5W 50 ML IV SCH (21:03)
[2017-09-04] MEDS: PYRIDOXINE HCL 50 MG TABLET GT SCH (21:08)
[2017-09-05] VITALS: BP 145/85
[2017-09-05] MEDS: METRONIDAZOLE 500MG/ NS 100ML 500 MG in PREMIX 1 EA IV SCH ×3 (01:13→16:51)
[2017-09-05 04:00] VITALS: BP 147/82
[2017-09-05] MEDS: BLOOD SUGAR DIAGNOSTIC 1 EACH STRIP IN SCH ×5 (05:29→23:06)
--- NOTE | 2017-09-05 06:50 | NUR ---
END OF SHIFT SUMMERY: PT IS IN A STABLE CONDITION, ON THE INSULATOR TECHNICIAN NSR. STILL ON TPN @ THE PRESCRIBED RATE. NO ACUTE RESPIRATORY/CARDIAC DISTRESS NOTED. WILL CONTINUE TO MONITOR AND ENDORSE IT TO AM SHIFT NURSE TO CONTINUE THE CARE.
--- NOTE | 2017-09-05 07:05 | NUR ---
RN INITIAL NOTE PATIENT RECEIVED IN BED, RESTING. AWAKE, OPENS EYES, NON-VERBAL. NO S/S OF PAIN OR DISCOMFORT. SINUS RHYTHM ON TELE MONITOR. PATIENT HAS TRACH: PORTEX #8, TOLERATING VENT SETTINGS WELL. NO S/S OF PAIN OR DISCOMFORT. GTUBE FLUSHED, PATENT, PLACEMENT VERIFIED. GTUBE CLAMPED, MEDS ONLY. RECEIVING TPN. IV SITE FLUSHED, PATENT. SKIN IS WARM AND DRY TO TOUCH. SAFETY PRECAUTIONS IMPLEMENTED. BED IN LOCKED, LOW POSITION WITH TWO SIDE RAILS UP. WILL CONTINUE TO MONITOR CLOSELY.
[2017-09-05 07:45] LABS: BASOPHILS % (AUTO) 0.4 % (0.0-2.0); EOSINOPHILS # (AUTO) 0.2 /CMM (0.0-0.7); EOSINOPHILS % (AUTO) 2.6 % (0.0-6.0); HEMATOCRIT 27 % (39-51); HEMOGLOBIN 9.3 g/dL (13.5-17.5); LYMPHOCYTES # (AUTO) 0.5 /CMM (0.8-4.8); LYMPHOCYTES % (AUTO) 6.3 % (20.0-44.0); MEAN CORPUSCULAR HEMOGLOBIN 33 PG (26.0-33.0); MEAN CORPUSCULAR HGB CONC 34 g/dl (31.0-36.0); MEAN CORPUSCULAR VOLUME 97 fL (80-96); MONOCYTES # (AUTO) 0.2 /CMM (0.1-1.30); NEUTROPHILS # (AUTO) 6.4 /CMM (1.8-8.9); NEUTROPHILS % (AUTO) 87.7 % (43.0-81.0); RDW COEFFICIENT OF VARIATION 22.3 (11.5-15.0); WHITE BLOOD COUNT (AUTO) 7.3 K/uL (4.3-11.0)
[2017-09-05 07:53] LABS: PLATELET COUNT (AUTO) 22 /CMM (150-450)
[2017-09-05 08:00] VITALS: BP 163/84
[2017-09-05 08:07] LABS: CALCIUM, SERUM 8.8 mg/dL (8.5-10.1); CREATININE 4.1 mg/dL (0.6-1.3); MAGNESIUM 2.2 mg/dL (1.8-2.4); PHOSPHORUS 2.2 mg/dL (2.5-4.9); POTASSIUM 4.1 mmol/L (3.5-5.1)
[2017-09-05] MEDS: SIMETHICONE SUSP 40 MG/0.6 ML BOTTLE GT SCH ×2 (08:11→16:51)
[2017-09-05] MEDS: SEVELAMER CARBONATE 0.8 GM POWD.PACK GT SCH ×3 (08:12→20:06)
[2017-09-05] MEDS: LEVETIRACETAM SOL (5 ML) 100 MG/ML UDC NG SCH ×2 (08:12→20:06)
[2017-09-05] MEDS: ZINC SULFATE 220 MG CAPSULE GT SCH (08:12)
[2017-09-05] MEDS: FOLIC ACID 1 MG TABLET GT SCH (08:12)
[2017-09-05] MEDS: GABAPENTIN 100 MG CAPSULE GT SCH ×2 (08:12→20:06)
[2017-09-05] MEDS: VIT B CMPLX 3/FA/VIT C/BIOTIN 1 TAB TABLET GT SCH (08:13)
[2017-09-05] MEDS: Z GUARD REMEDY 2 OZ OINT TP SCH (08:13)
[2017-09-05] MEDS: PROSOURCE / PROSTAT (PYXIS) 30 ML UDC GT SCH ×2 (08:13→16:51)
[2017-09-05] MEDS: BACITRACIN/POLYMYXIN B 15 GM TUBE TP SCH (08:13)
[2017-09-05] MEDS: TRAMADOL HCL 50 MG TABLET GT SCH ×2 (08:13→20:07)
[2017-09-05] MEDS: LORAZEPAM INJ 2 MG/ML VIAL IV SCH ×2 (08:13→22:23)
[2017-09-05] MEDS: HYDROGEL DRESSING 90 GM TUBE TP SCH (08:13)
[2017-09-05] MEDS: LACTOBACILLUS RHAMNOSUS GG 1 EACH CAP.SPRINK GT SCH ×2 (08:13→16:51)
[2017-09-05 09:29] LABS: BAND % (MANUAL) 8 % (0.0-5.0); EOSINOPHILS % (MANUAL) 3 % (0-4); LYMPHOCYTES % (MANUAL) 3 % (16-48); MONOCYTES % (MANUAL) 2 % (0-11.0); NEUTROPHILS % (MANUAL) 84 (42-76)
[2017-09-05] MEDS ORDERED: TPN BAG #4 IV PRN ×10 (09:49)
[2017-09-05] MEDS ORDERED: TPN BAG #5 IV PRN ×10 (10:00)
[2017-09-05] MEDS: PANTOPRAZOLE 40 MG VIAL IV SCH (10:08)
[2017-09-05] MEDS: VANCOMYCIN 500 MG in IV D5W 100 ML IV PRN (10:53)
[2017-09-05 12:00] VITALS: BP 159/82
[2017-09-05] MEDS: INSULIN REGULAR, HUMAN 100 UNIT/ML 3 ML VIAL SQ PRN ×2 (12:14→23:06)
[2017-09-05] MEDS: TBO-FILGRASTIM 300 MCG/0.5 ML SYRINGE SQ SCH (14:10)
[2017-09-05 16:00] VITALS: BP 161/80
--- NOTE | 2017-09-05 18:58 | NUR ---
RN CLOSING NOTE ALL MD ORDERS CARRIED OUT. PATIENTS NEEDS ANTICIPATED. PATIENT KEPT CLEAN AND DRY. SAFETY PRECAUTIONS IN PLACE AT ALL TIMES. WILL GIVE REPORT TO PM RN FOR KRYS.
--- NOTE | 2017-09-05 19:05 | NUR ---
DOLLY OPERATOR OPENING NOTES RECEIVED REPORT FROM DEA Rosario RN. PATIENT A/A/O X1, NON-VERBAL. NO RESPIRATORY DISTRESS NOTED. TRACH INTACT W/ VENT SETTINGS AC 16, TV 500, FIO2 40%, PEEP 5. ON TELE SINUS RHYTHM IN THE 80S. LEFT UPPER ARM PICC LINE INTACT & PATENT W/ DRESSING CDI & TPN @ 50 ML/HR. TOLERATING WELL. G-TUBE INTACT & FLUSHING WELL, CLAMPED @ THIS TIME. SAFETY MEASURES IN PLACE W/ SIDE RAILS UP & BED LOCKED & IN LOWEST POSITION. REVERSE ISOLATION MAINTAINED. WILL CONTINUE TO MONITOR.
[2017-09-05 20:00] VITALS: BP 134/84
[2017-09-05] MEDS: CEFEPIME 1 GM in IV D5W 50 ML IV SCH (20:06)
[2017-09-05] MEDS: PYRIDOXINE HCL 50 MG TABLET GT SCH (22:22)
[2017-09-06] VITALS: BP 124/73
[2017-09-06] MEDS: METRONIDAZOLE 500MG/ NS 100ML 500 MG in PREMIX 1 EA IV SCH ×3 (01:22→17:18)
[2017-09-06] MEDS: IV NS 0.9% 250 ML IV PRN (01:28)
[2017-09-06 04:00] VITALS: BP 133/78
[2017-09-06] MEDS: INSULIN REGULAR, HUMAN 100 UNIT/ML 3 ML VIAL SQ PRN ×3 (05:24→23:20)
[2017-09-06] MEDS: BLOOD SUGAR DIAGNOSTIC 1 EACH STRIP IN SCH ×4 (05:27→23:13)
[2017-09-06 07:12] LABS: BASOPHILS % (AUTO) 0.3 % (0.0-2.0); EOSINOPHILS # (AUTO) 0.2 /CMM (0.0-0.7); EOSINOPHILS % (AUTO) 2.4 % (0.0-6.0); HEMATOCRIT 27 % (39-51); HEMOGLOBIN 9.3 g/dL (13.5-17.5); LYMPHOCYTES # (AUTO) 0.4 /CMM (0.8-4.8); LYMPHOCYTES % (AUTO) 5.5 % (20.0-44.0); MEAN CORPUSCULAR HEMOGLOBIN 33 PG (26.0-33.0); MEAN CORPUSCULAR HGB CONC 34 g/dl (31.0-36.0); MEAN CORPUSCULAR VOLUME 98 fL (80-96); MONOCYTES # (AUTO) 0.2 /CMM (0.1-1.30); MONOCYTES % (AUTO) 2.5 % (2.0-12.0); NEUTROPHILS # (AUTO) 5.9 /CMM (1.8-8.9); NEUTROPHILS % (AUTO) 89.3 % (43.0-81.0); RED BLOOD CELL COUNT(AUTO) 2.79 MIL/uL (4.5-6.0); WHITE BLOOD COUNT (AUTO) 6.6 K/uL (4.3-11.0)
[2017-09-06 07:18] LABS: CALCIUM, SERUM 8.6 mg/dL (8.5-10.1); CREATININE 4.4 mg/dL (0.6-1.3); MAGNESIUM 2.3 mg/dL (1.8-2.4); PHOSPHORUS 2.7 mg/dL (2.5-4.9); POTASSIUM 4.5 mmol/L (3.5-5.1)
[2017-09-06 07:22] LABS: PLATELET COUNT (AUTO) 29 /CMM (150-450)
[2017-09-06 08:00] VITALS: BP 142/87
[2017-09-06] MEDS: BACITRACIN/POLYMYXIN B 15 GM TUBE TP SCH (09:00)
[2017-09-06] MEDS ORDERED: TPN BAG #6 IV PRN ×9 (10:00)
[2017-09-06] MEDS: GABAPENTIN 100 MG CAPSULE GT SCH ×2 (10:13→20:14)
[2017-09-06] MEDS: ZINC SULFATE 220 MG CAPSULE GT SCH (10:14)
[2017-09-06] MEDS: TRAMADOL HCL 50 MG TABLET GT SCH ×2 (10:14→20:15)
[2017-09-06] MEDS: LEVETIRACETAM SOL (5 ML) 100 MG/ML UDC NG SCH ×2 (10:15→20:14)
[2017-09-06] MEDS: VIT B CMPLX 3/FA/VIT C/BIOTIN 1 TAB TABLET GT SCH (10:15)
[2017-09-06] MEDS: LACTOBACILLUS RHAMNOSUS GG 1 EACH CAP.SPRINK GT SCH ×2 (10:15→17:01)
[2017-09-06] MEDS: FOLIC ACID 1 MG TABLET GT SCH (10:15)
[2017-09-06] MEDS: SIMETHICONE SUSP 40 MG/0.6 ML BOTTLE GT SCH ×2 (10:15→17:01)
[2017-09-06] MEDS: PANTOPRAZOLE 40 MG VIAL IV SCH (10:15)
[2017-09-06] MEDS: SEVELAMER CARBONATE 0.8 GM POWD.PACK GT SCH ×3 (10:16→20:14)
[2017-09-06] MEDS: PROSOURCE / PROSTAT (PYXIS) 30 ML UDC GT SCH ×2 (10:16→17:01)
[2017-09-06 10:18] LABS: BAND % (MANUAL) 7 % (0.0-5.0); EOSINOPHILS % (MANUAL) 2 % (0-4); LYMPHOCYTES % (MANUAL) 5 % (16-48); MONOCYTES % (MANUAL) 6 % (0-11.0); NEUTROPHILS % (MANUAL) 80 (42-76)
[2017-09-06] MEDS: HYDROGEL DRESSING 90 GM TUBE TP SCH (10:18)
[2017-09-06] MEDS: Z GUARD REMEDY 2 OZ OINT TP SCH (10:20)
[2017-09-06] MEDS: LORAZEPAM INJ 2 MG/ML VIAL IV SCH ×2 (10:23→20:31)
[2017-09-06 12:00] VITALS: BP 156/83
[2017-09-06] MEDS: diphenhydrAMINE HCL 50 MG/ML VIAL IV PRN ×2 (12:36→20:31)
[2017-09-06 16:00] VITALS: BP 101/70
[2017-09-06] MEDS: TBO-FILGRASTIM 300 MCG/0.5 ML SYRINGE SQ SCH (17:02)
--- NOTE | 2017-09-06 19:30 | NUR ---
SALON PROFESSIONAL INITIAL NOTE PT RECEIVED RESTING IN BED. A/O X1, NONVERBAL. ON MECH VENT WITH SETTINGS WELL TOLERATED AND SATURATING 99%. TELE-SR. IV JOANN PICC CLEAN, DRY, PATENT WITH TPN INFUSING AT THIS TIME. RCW HD CATH CLEAN AND IN PLACE. GTUBE CLAMPED AND REINFORCED WITH DRESSINGS AT THIS TIE. NPO EXCEPT MEDS VIA GTUBE. HOB ELEVATED AND ON ASPIRATION PRECAUTIONS. REVERSE ISOLATION PRECAUTIONS MAINTAINED. CALL LIGHT WITHIN REACH. WILL CONTINUE TO MONITOR.
[2017-09-06 20:00] VITALS: BP 143/67
[2017-09-06] MEDS: CEFEPIME 1 GM in IV D5W 50 ML IV SCH (20:13)
[2017-09-06] MEDS: PYRIDOXINE HCL 50 MG TABLET GT SCH (22:26)
[2017-09-07] VITALS: BP 154/73
[2017-09-07] MEDS: METRONIDAZOLE 500MG/ NS 100ML 500 MG in PREMIX 1 EA IV SCH ×3 (01:28→17:57)
[2017-09-07 04:00] VITALS: BP 161/74
[2017-09-07] MEDS: diphenhydrAMINE HCL 50 MG/ML VIAL IV PRN ×3 (04:11→17:59)
[2017-09-07] MEDS: BLOOD SUGAR DIAGNOSTIC 1 EACH STRIP IN SCH ×3 (05:49→17:57)
--- NOTE | 2017-09-07 06:31 | NUR ---
CLEANING MACHINE OPERATOR CLOSING NOTE PT REMAINED STABLE DURING SHIFT. NO ACUTE DISTRESS NOTED. VENT SETTINGS WELL TOLERATED. REVERSE ISOLATION MAINTAINED. TPN INFUSING AT THIS TIME. IV DRY AND IN PLACE. REPOSITIONED Q2H. HOB ELEVATED. GTUBE REMAINED IN PLACE WITH PRESSURE DRESSING. WOUND TREATMENT PERFORMED ORDERED. ALL DUE MEDS GIVEN ORDERED AND WELL TOLERATED. KEPT CLEAN AND DRY. WILL ENDORSE TO NEXT SHIFT FOR KRYS
[2017-09-07 07:34] LABS: CALCIUM, SERUM 8.5 mg/dL (8.5-10.1); CREATININE 3.8 mg/dL (0.6-1.3); MAGNESIUM 2.1 mg/dL (1.8-2.4); PHOSPHORUS 2.7 mg/dL (2.5-4.9); POTASSIUM 4.5 mmol/L (3.5-5.1)
[2017-09-07 08:00] VITALS: BP 128/60
[2017-09-07] MEDS: FOLIC ACID 1 MG TABLET GT SCH (08:45)
[2017-09-07] MEDS: ZINC SULFATE 220 MG CAPSULE GT SCH (08:46)
[2017-09-07] MEDS: SEVELAMER CARBONATE 0.8 GM POWD.PACK GT SCH ×3 (08:46→21:58)
[2017-09-07] MEDS: LACTOBACILLUS RHAMNOSUS GG 1 EACH CAP.SPRINK GT SCH ×2 (08:46→16:04)
[2017-09-07] MEDS: VIT B CMPLX 3/FA/VIT C/BIOTIN 1 TAB TABLET GT SCH (08:46)
[2017-09-07] MEDS: GABAPENTIN 100 MG CAPSULE GT SCH ×2 (08:46→21:58)
[2017-09-07] MEDS: TRAMADOL HCL 50 MG TABLET GT SCH ×2 (08:46→21:58)
[2017-09-07] MEDS: LEVETIRACETAM SOL (5 ML) 100 MG/ML UDC NG SCH ×2 (08:47→21:58)
[2017-09-07] MEDS: PROSOURCE / PROSTAT (PYXIS) 30 ML UDC GT SCH ×2 (08:47→16:04)
[2017-09-07] MEDS: SIMETHICONE SUSP 40 MG/0.6 ML BOTTLE GT SCH ×2 (08:48→16:04)
[2017-09-07] MEDS: LORAZEPAM INJ 2 MG/ML VIAL IV SCH ×2 (08:49→21:59)
[2017-09-07] MEDS: BACITRACIN/POLYMYXIN B 15 GM TUBE TP SCH (08:55)
[2017-09-07] MEDS: HYDROGEL DRESSING 90 GM TUBE TP SCH (08:55)
[2017-09-07] MEDS: Z GUARD REMEDY 2 OZ OINT TP SCH (08:55)
[2017-09-07] MEDS: PANTOPRAZOLE 40 MG VIAL IV SCH (11:38)
[2017-09-07] MEDS: INSULIN REGULAR, HUMAN 100 UNIT/ML 3 ML VIAL SQ PRN (11:54)
[2017-09-07 12:00] VITALS: BP 152/71
[2017-09-07] MEDS ORDERED: TPN BAG #6 IV PRN ×10 (12:14)
[2017-09-07] MEDS ORDERED: RENAL NOVASOURCE 1,000 ML BOTTLE GT PRN (13:30)
--- NOTE | 2017-09-07 14:00 | NUR ---
RN NOTE PER JERONIMO MAYEN WORKING TOGETHER WITH DR HERNANDEZ, TO HOLD TUBE FEEDING UNTIL SURGICAL REPAIR OF [facility]. PER DR VELA SHE IS GOING TO ADDRESS THE SURGICAL INTERVENTION WITH DR STELLA SCHWARTZ. DR VELA AWARE ABOUT LOW PLATELETS.
[2017-09-07 14:10] LABS: BASOPHILS # (AUTO) 0.1 /CMM (0.0-0.2); BASOPHILS % (AUTO) 2.5 % (0.0-2.0); EOSINOPHILS # (AUTO) 0.1 /CMM (0.0-0.7); EOSINOPHILS % (AUTO) 2.2 % (0.0-6.0); HEMATOCRIT 26 % (39-51); HEMOGLOBIN 8.6 g/dL (13.5-17.5); LYMPHOCYTES # (AUTO) 0.5 /CMM (0.8-4.8); LYMPHOCYTES % (AUTO) 8.1 % (20.0-44.0); MEAN CORPUSCULAR HEMOGLOBIN 33 PG (26.0-33.0); MEAN CORPUSCULAR HGB CONC 34 g/dl (31.0-36.0); MEAN CORPUSCULAR VOLUME 99 fL (80-96); MONOCYTES # (AUTO) 0.4 /CMM (0.1-1.30); MONOCYTES % (AUTO) 7.1 % (2.0-12.0); NEUTROPHILS # (AUTO) 4.6 /CMM (1.8-8.9); NEUTROPHILS % (AUTO) 80.1 % (43.0-81.0); RDW COEFFICIENT OF VARIATION 23.3 (11.5-15.0); RED BLOOD CELL COUNT(AUTO) 2.59 MIL/uL (4.5-6.0); WHITE BLOOD COUNT (AUTO) 5.7 K/uL (4.3-11.0)
[2017-09-07 14:16] LABS: PLATELET COUNT (AUTO) 20 /CMM (150-450)
[2017-09-07 15:09] LABS: BAND % (MANUAL) 12 % (0.0-5.0); EOSINOPHILS % (MANUAL) 2 % (0-4); LYMPHOCYTES % (MANUAL) 10 % (16-48); MONOCYTES % (MANUAL) 4 % (0-11.0); NEUTROPHILS % (MANUAL) 72 (42-76)
[2017-09-07] MEDS: TBO-FILGRASTIM 300 MCG/0.5 ML SYRINGE SQ SCH (15:47)
[2017-09-07 16:00] VITALS: BP 169/80
[2017-09-07] MEDS: hydrALAZINE HCL IV 20 MG VIAL IV PRN (18:08)
--- NOTE | 2017-09-07 19:20 | NUR ---
RN INITIAL NOTE RECEIVED PT IN NO ACUTE DISTRESS IN BED. PT IS A/O X 1 AND ABLE TO MAKE NEEDS KNOWN BY NODDING HEAD YES OR NO. PT IS ON REVERSE ISOLATION. PT IS ON MECHANICAL VENT VIA TRACH. TRACH SITE IS CLEAN DRY AND INTACT. PT TOLERATING VENT SETTING WELL WITH O2 SAT @ 100%. PT NOT SHOWING ANY S/S OF SOB, DIFFICULTY BREATHING OR PAIN AT THIS TIME. PT HAS GTUBE THAT IS INTACT BUT LEAKING FLUID FROM SITE. WILL KEEP SITE CLEAN AND DRY. PT HAS JOANN PICC THAT IS CLEAN DRY INTACT AND PATENT WITH TPN @ 50ML/HR AND NS @ TKO. BED IN LOW LOCK POSITION WITH RIALS UP X 2. CALL LIGHT WITHIN REACH AND ALL SAFETY MEASURES ENSURED AND CARRIED OUT. WILL CONTINUE TO MONITOR PT.
[2017-09-07 20:00] VITALS: BP 136/81
[2017-09-07] MEDS: CEFEPIME 1 GM in IV D5W 50 ML IV SCH (20:45)
[2017-09-07] MEDS: PYRIDOXINE HCL 50 MG TABLET GT SCH (21:59)
[2017-09-08] VITALS (7 sets, daily range): BP systolic 147–197; BP diastolic 56–84
[2017-09-08] MEDS: BLOOD SUGAR DIAGNOSTIC 1 EACH STRIP IN SCH ×4 (00:58→18:23)
[2017-09-08] MEDS: METRONIDAZOLE 500MG/ NS 100ML 500 MG in PREMIX 1 EA IV SCH ×3 (01:02→18:26)
[2017-09-08] MEDS: INSULIN REGULAR, HUMAN 100 UNIT/ML 3 ML VIAL SQ PRN ×3 (05:36→18:36)
[2017-09-08 06:38] LABS: BASOPHILS % (AUTO) 0.7 % (0.0-2.0); EOSINOPHILS # (AUTO) 0.1 /CMM (0.0-0.7); EOSINOPHILS % (AUTO) 1.8 % (0.0-6.0); HEMATOCRIT 26 % (39-51); HEMOGLOBIN 9.1 g/dL (13.5-17.5); LYMPHOCYTES # (AUTO) 0.4 /CMM (0.8-4.8); LYMPHOCYTES % (AUTO) 6.9 % (20.0-44.0); MEAN CORPUSCULAR HEMOGLOBIN 34 PG (26.0-33.0); MEAN CORPUSCULAR HGB CONC 35 g/dl (31.0-36.0); MEAN CORPUSCULAR VOLUME 99 fL (80-96); MONOCYTES # (AUTO) 0.3 /CMM (0.1-1.30); MONOCYTES % (AUTO) 4.5 % (2.0-12.0); NEUTROPHILS # (AUTO) 5.5 /CMM (1.8-8.9); NEUTROPHILS % (AUTO) 86.1 % (43.0-81.0); RDW COEFFICIENT OF VARIATION 23.1 (11.5-15.0); RED BLOOD CELL COUNT(AUTO) 2.67 MIL/uL (4.5-6.0); WHITE BLOOD COUNT (AUTO) 6.4 K/uL (4.3-11.0)
--- NOTE | 2017-09-08 06:50 | NUR ---
RN NOTE ANESTHESIOLOGY MEDICAL DOCTOR IS AT BEDSIDE.
[2017-09-08 06:55] LABS: CALCIUM, SERUM 8.7 mg/dL (8.5-10.1); CREATININE 4.3 mg/dL (0.6-1.3); MAGNESIUM 2.2 mg/dL (1.8-2.4); PHOSPHORUS 3.1 mg/dL (2.5-4.9); POTASSIUM 4.8 mmol/L (3.5-5.1)
[2017-09-08 07:25] LABS: PLATELET COUNT (AUTO) 22 /CMM (150-450)
--- NOTE | 2017-09-08 07:45 | NUR ---
LEATHER BELT LOOP CUTTER OPENING NOTE SBAR RECEIVED AT THE BEDSIDE. PATIENT IS ALERT/ORIENTED X1, ASLEEP/EASLI AWAKEN. PATIENT IS NON-VERBAL, RESPONSIVE TO VOICE AND TOUCH. PATIENT IS IN BED. BED IS LOCKED, IN LOWEST POSITION, SIDE RAILS UP X3, BED ALARM ON. NO S/S OF DISTRESS NOTED. VENT SETTINGS ORDERED. REVERSE ISOLATION MAINTAINED. TPN INFUSING INFUSING ORDERED. HOB ELEVATED. GTUBE IN PLACE WITH PRESSURE DRESSING. WILL CONTINUE TO ASSESS/MONITOR THROUGHOUT THE SHIFT.
[2017-09-08] MEDS: SEVELAMER CARBONATE 0.8 GM POWD.PACK GT SCH ×3 (10:20→21:03)
[2017-09-08] MEDS: LEVETIRACETAM SOL (5 ML) 100 MG/ML UDC NG SCH ×2 (10:21→21:04)
[2017-09-08] MEDS: LACTOBACILLUS RHAMNOSUS GG 1 EACH CAP.SPRINK GT SCH ×2 (10:21→16:46)
[2017-09-08] MEDS: LORAZEPAM INJ 2 MG/ML VIAL IV SCH ×2 (10:21→21:04)
[2017-09-08] MEDS: ZINC SULFATE 220 MG CAPSULE GT SCH (10:22)
[2017-09-08] MEDS: VIT B CMPLX 3/FA/VIT C/BIOTIN 1 TAB TABLET GT SCH (10:22)
[2017-09-08] MEDS: GABAPENTIN 100 MG CAPSULE GT SCH ×2 (10:22→21:04)
[2017-09-08] MEDS: TRAMADOL HCL 50 MG TABLET GT SCH ×2 (10:22→21:04)
[2017-09-08] MEDS: FOLIC ACID 1 MG TABLET GT SCH (10:23)
[2017-09-08] MEDS: SIMETHICONE SUSP 40 MG/0.6 ML BOTTLE GT SCH ×2 (10:23→17:00)
[2017-09-08] MEDS: PROSOURCE / PROSTAT (PYXIS) 30 ML UDC GT SCH ×2 (10:24→17:01)
[2017-09-08] MEDS: POLYVINYL ALCOHOL 15 ML BOTTLE EACHEYE PRN (10:25)
[2017-09-08] MEDS: Z GUARD REMEDY 2 OZ OINT TP SCH (10:26)
[2017-09-08] MEDS: HYDROGEL DRESSING 90 GM TUBE TP SCH (10:26)
[2017-09-08] MEDS: BACITRACIN/POLYMYXIN B 15 GM TUBE TP SCH (10:28)
--- NOTE | 2017-09-08 10:32 | NUR ---
ASSISTANT WAREHOUSE MANAGER NOTE ADMINISTRING MEDICATIONS PAST SCHEDULE PATIENT WAS IN DIALYSIS EARLIER.
[2017-09-08] MEDS: PANTOPRAZOLE 40 MG VIAL IV SCH (11:00)
[2017-09-08 11:05] LABS: BAND % (MANUAL) 2 % (0.0-5.0); LYMPHOCYTES % (MANUAL) 4 % (16-48); MONOCYTES % (MANUAL) 5 % (0-11.0); NEUTROPHILS % (MANUAL) 89 (42-76)
[2017-09-08] MEDS ORDERED: TPN BAG #7 IV PRN ×9 (12:00)
[2017-09-08] MEDS ORDERED: TPN BAG #8 IV PRN ×9 (12:00)
[2017-09-08] MEDS ORDERED: EPOETIN ALFA (10,000 UNIT) 10,000 UNIT/ML VIAL IV ONE (15:00)
--- NOTE | 2017-09-08 15:18 | NUR ---
ASSEMBLER CHASSIS NOTE EPOGEN AND FILGRASTIM NOT ON THE FLOOR. PHARMACY INFORMED.
[2017-09-08] MEDS: CLONIDINE HCL 0.1MG/24H PTWK 1 EA PATCH TD SCH (15:30)
[2017-09-08] MEDS: TBO-FILGRASTIM 300 MCG/0.5 ML SYRINGE SQ SCH (16:41)
[2017-09-08] MEDS: VANCOMYCIN 500 MG in IV D5W 100 ML IV PRN (17:04)
--- NOTE | 2017-09-08 19:12 | NUR ---
CO FOUNDER CLOSING NOTE PATIENT IS ALERT/ORIENTED X1, ASLEEP/EASILY AWAKEN. PATIENT IS NON-VERBAL, RESPONSIVE TO VOICE AND TOUCH. PATIENT IS IN BED. BED IS LOCKED, IN LOWEST POSITION, SIDE RAILS UP X3, BED ALARM ON. NO S/S OF DISTRESS NOTED. VENT SETTINGS ORDERED. REVERSE ISOLATION MAINTAINED. TPN INFUSING INFUSING ORDERED. HOB ELEVATED AT ALL TIMES. WOUND CARE PERFORMED PRESCRIBED. REPOSITIONED MAINTAINING FUNCTIONAL ALIGNMENT OF THE EXTREMITIES EVERY [address] WITH PRESSURE DRESSING. WILL ENDORSE TO THE HUMANE AGENT NURSE FOR THE KRYS.
[2017-09-08] MEDS: CEFEPIME 1 GM in IV D5W 50 ML IV SCH (21:03)
[2017-09-08] MEDS: PYRIDOXINE HCL 50 MG TABLET GT SCH (21:04)
[2017-09-09] VITALS (7 sets, daily range): BP systolic 143–164; BP diastolic 75–81
[2017-09-09] MEDS: BLOOD SUGAR DIAGNOSTIC 1 EACH STRIP IN SCH ×4 (00:37→18:14)
[2017-09-09] MEDS: METRONIDAZOLE 500MG/ NS 100ML 500 MG in PREMIX 1 EA IV SCH ×3 (02:25→17:09)
[2017-09-09] MEDS: IV NS 0.9% 250 ML IV PRN (02:25)
[2017-09-09] MEDS: hydrALAZINE HCL IV 20 MG VIAL IV PRN (04:56)
[2017-09-09 07:48] LABS: CALCIUM, SERUM 8.7 mg/dL (8.5-10.1); CREATININE 3.9 mg/dL (0.6-1.3); MAGNESIUM 2.1 mg/dL (1.8-2.4); PHOSPHORUS 2.9 mg/dL (2.5-4.9); POTASSIUM 4.3 mmol/L (3.5-5.1)
--- NOTE | 2017-09-09 07:58 | NUR ---
COLLATERAL CLERK CLOSING NOTES NO SIGNIFICANT CHANGES OVERNIGHT. NO RESPIRATORY DISTRESS NOTED. TOLERATING CURRENT VENT SETTINGS. GT PATENT AND INTACT, GAS RELEASED FREQUENTLY. PATIENT STILL WITH ABDOMINAL DISTENTION. NO N/V NOTED. PAIN MANAGED NEEDED. WITH TPN #7 RUNNING. ON TELE MONITOR SR THROUGH SHIFT. ALL NEEDS ANTICIPATED AND MET. KEPT CLEAN AND DRY. WOUND TX ORDERED DONE. TURNED AND REPOSITIONED Q2 AND PRN. TRACH CARE DONE. SIDE RAILS UP AND LOCKED. BED KEPT AT LOWEST POSITION. CALL LIGHT KEPT WITHIN EASY REACH. CONTINUITY OF CARE ENDORSED TO AM NURSE.
[2017-09-09] MEDS: SEVELAMER CARBONATE 0.8 GM POWD.PACK GT SCH ×3 (09:02→21:15)
[2017-09-09] MEDS: VIT B CMPLX 3/FA/VIT C/BIOTIN 1 TAB TABLET GT SCH (09:02)
[2017-09-09] MEDS: LACTOBACILLUS RHAMNOSUS GG 1 EACH CAP.SPRINK GT SCH ×2 (09:02→16:28)
[2017-09-09] MEDS: LEVETIRACETAM SOL (5 ML) 100 MG/ML UDC NG SCH ×2 (09:02→21:15)
[2017-09-09] MEDS: TRAMADOL HCL 50 MG TABLET GT SCH ×2 (09:02→21:16)
[2017-09-09] MEDS: GABAPENTIN 100 MG CAPSULE GT SCH ×2 (09:02→21:15)
[2017-09-09] MEDS: FOLIC ACID 1 MG TABLET GT SCH (09:02)
[2017-09-09] MEDS: ZINC SULFATE 220 MG CAPSULE GT SCH (09:02)
[2017-09-09] MEDS: HYDROGEL DRESSING 90 GM TUBE TP SCH (09:03)
[2017-09-09] MEDS: Z GUARD REMEDY 2 OZ OINT TP SCH (09:03)
[2017-09-09] MEDS: PROSOURCE / PROSTAT (PYXIS) 30 ML UDC GT SCH ×2 (09:03→16:28)
[2017-09-09] MEDS: BACITRACIN/POLYMYXIN B 15 GM TUBE TP SCH (09:03)
[2017-09-09] MEDS: LORAZEPAM INJ 2 MG/ML VIAL IV SCH ×2 (09:04→21:19)
[2017-09-09] MEDS: SIMETHICONE SUSP 40 MG/0.6 ML BOTTLE GT SCH ×2 (09:14→16:28)
[2017-09-09] MEDS: PANTOPRAZOLE 40 MG VIAL IV SCH (10:35)
[2017-09-09 15:51] LABS: BASOPHILS % (AUTO) 0.2 % (0.0-2.0); EOSINOPHILS # (AUTO) 0.1 /CMM (0.0-0.7); EOSINOPHILS % (AUTO) 1.4 % (0.0-6.0); HEMATOCRIT 27 % (39-51); HEMOGLOBIN 9.1 g/dL (13.5-17.5); LYMPHOCYTES # (AUTO) 0.4 /CMM (0.8-4.8); LYMPHOCYTES % (AUTO) 5.8 % (20.0-44.0); MEAN CORPUSCULAR HEMOGLOBIN 34 PG (26.0-33.0); MEAN CORPUSCULAR HGB CONC 34 g/dl (31.0-36.0); MEAN CORPUSCULAR VOLUME 100 fL (80-96); MONOCYTES # (AUTO) 0.2 /CMM (0.1-1.30); MONOCYTES % (AUTO) 3.6 % (2.0-12.0); NEUTROPHILS # (AUTO) 5.9 /CMM (1.8-8.9); RED BLOOD CELL COUNT(AUTO) 2.71 MIL/uL (4.5-6.0); WHITE BLOOD COUNT (AUTO) 6.7 K/uL (4.3-11.0)
[2017-09-09 15:58] LABS: PLATELET COUNT (AUTO) 20 /CMM (150-450)
[2017-09-09 16:37] LABS: BAND % (MANUAL) 1 % (0.0-5.0); NEUTROPHILS % (MANUAL) 91 (42-76)
[2017-09-09 16:38] LABS: EOSINOPHILS % (MANUAL) 2 % (0-4); LYMPHOCYTES % (MANUAL) 1 % (16-48); MONOCYTES % (MANUAL) 5 % (0-11.0)
[2017-09-09] MEDS: TBO-FILGRASTIM 300 MCG/0.5 ML SYRINGE SQ SCH (17:02)
[2017-09-09] MEDS: INSULIN REGULAR, HUMAN 100 UNIT/ML 3 ML VIAL SQ PRN (18:17)
--- NOTE | 2017-09-09 19:30 | NUR ---
MANAGER RETAIL INITIAL NOTES RECEIVED PATIENT AWAKE, NON-VERBAL, VENT DEPENDENT, ABLE SHAKE HEAD FOR NO AND BLINK FOR YES. NO S/S OF PAIN OR DISCOMFORT. NO RESPIRATORY DISTRESS NOTED. WITH VENT SETTING AC16, TV 500, FIO2 40%, PEEP 5. TRACH C/D/I. ON TELE MONITOR SR. SKIN WARM AND DRY TO TOUCH. WITH GENERAL EDEMA NOTED. WITH GT PATENT AND INTACT, IN PLACE. ON REVERSE ISOLATION. HOB ELEVATED. SIDE RAILS UP AND LOCKED. BED KEPT AT LOWEST POSITION. WILL CONTINUE TO MONITOR.
[2017-09-09] MEDS: CEFEPIME 1 GM in IV D5W 50 ML IV SCH (21:15)
[2017-09-09] MEDS: PYRIDOXINE HCL 50 MG TABLET GT SCH (21:17)
[2017-09-10] VITALS: BP 143/76
[2017-09-10] MEDS: BLOOD SUGAR DIAGNOSTIC 1 EACH STRIP IN SCH ×4 (00:26→17:47)
[2017-09-10] MEDS: METRONIDAZOLE 500MG/ NS 100ML 500 MG in PREMIX 1 EA IV SCH ×3 (02:36→17:45)
[2017-09-10 04:00] VITALS: BP 152/78
--- NOTE | 2017-09-10 06:03 | NUR ---
HOUSEKEEPER/LAUNDRY ASSISTANT CLOSING NOTES NO SIGNIFICANT CHANGES OVERNIGHT. NO RESPIRATORY DISTRESS NOTED. TOLERATING CURRENT VENT SETTINGS. GT PATENT AND INTACT, GAS RELEASED FREQUENTLY. PATIENT STILL WITH ABDOMINAL DISTENTION. NO N/V NOTED. PAIN MANAGED NEEDED. WITH TPN #8 RUNNING at 50ML/HR. ON TELE MONITOR SR THROUGH SHIFT. ALL NEEDS ANTICIPATED AND MET. KEPT CLEAN AND DRY. WOUND TX ORDERED DONE. TURNED AND REPOSITIONED Q2 AND PRN. TRACH CARE DONE. SIDE RAILS UP AND LOCKED. BED KEPT AT LOWEST POSITION. CALL LIGHT KEPT WITHIN EASY REACH. WILL ENDORSE CONTINUITY OF CARE TO AM NURSE.
[2017-09-10 06:31] LABS: BASOPHILS # (AUTO) 0.1 /CMM (0.0-0.2); BASOPHILS % (AUTO) 1.3 % (0.0-2.0); EOSINOPHILS # (AUTO) 0.1 /CMM (0.0-0.7); HEMATOCRIT 27 % (39-51); LYMPHOCYTES # (AUTO) 0.4 /CMM (0.8-4.8); LYMPHOCYTES % (AUTO) 5.9 % (20.0-44.0); MEAN CORPUSCULAR HEMOGLOBIN 33 PG (26.0-33.0); MEAN CORPUSCULAR HGB CONC 34 g/dl (31.0-36.0); MEAN CORPUSCULAR VOLUME 99 fL (80-96); MONOCYTES # (AUTO) 0.2 /CMM (0.1-1.30); MONOCYTES % (AUTO) 3.1 % (2.0-12.0); NEUTROPHILS # (AUTO) 6.2 /CMM (1.8-8.9); NEUTROPHILS % (AUTO) 87.7 % (43.0-81.0); RED BLOOD CELL COUNT(AUTO) 2.69 MIL/uL (4.5-6.0); WHITE BLOOD COUNT (AUTO) 7.1 K/uL (4.3-11.0)
[2017-09-10 06:58] LABS: CALCIUM, SERUM 8.6 mg/dL (8.5-10.1); CREATININE 4.4 mg/dL (0.6-1.3); MAGNESIUM 2.2 mg/dL (1.8-2.4); PHOSPHORUS 3.1 mg/dL (2.5-4.9); POTASSIUM 4.4 mmol/L (3.5-5.1)
--- NOTE | 2017-09-10 07:39 | NUR ---
EVENT MANAGEMENT CONSULTANT INITIAL NOTES RECEIVED PATIENT AWAKE, NON-VERBAL, VENT DEPENDENT, ABLE SHAKE HEAD FOR NO AND BLINK FOR YES. NO S/S OF PAIN OR DISCOMFORT. NO RESPIRATORY DISTRESS NOTED. PT VENT SETTING AC16, TV 500, FIO2 40%, PEEP 5. TRACH C/D/I MIDLINE. ON TELE MONITOR SR. SKIN WARM AND DRY TO TOUCH. WITH GENERAL EDEMA NOTED. GT PATENT AND INTACT, IN PLACE. PT STILL ON REVERSE ISOLATION. HOB ELEVATED. SIDE RAILS UP AND LOCKED. BED KEPT AT LOWEST POSITION. RN WILL CONTINUE TO MONITOR THROUGHOUT THE DAY .
[2017-09-10 08:00] VITALS: BP 195/84
[2017-09-10 08:15] LABS: PLATELET COUNT (AUTO) 24 /CMM (150-450)
[2017-09-10] MEDS: BACITRACIN/POLYMYXIN B 15 GM TUBE TP SCH (09:00)
[2017-09-10] MEDS: LEVETIRACETAM SOL (5 ML) 100 MG/ML UDC NG SCH ×2 (09:19→21:02)
[2017-09-10] MEDS: GABAPENTIN 100 MG CAPSULE GT SCH ×2 (09:19→21:02)
[2017-09-10] MEDS: TRAMADOL HCL 50 MG TABLET GT SCH ×2 (09:19→21:02)
[2017-09-10] MEDS: VIT B CMPLX 3/FA/VIT C/BIOTIN 1 TAB TABLET GT SCH (09:19)
[2017-09-10] MEDS: PANTOPRAZOLE 40 MG VIAL IV SCH (09:19)
[2017-09-10] MEDS: Z GUARD REMEDY 2 OZ OINT TP SCH (09:20)
[2017-09-10] MEDS: SEVELAMER CARBONATE 0.8 GM POWD.PACK GT SCH ×3 (09:20→21:02)
[2017-09-10] MEDS: LACTOBACILLUS RHAMNOSUS GG 1 EACH CAP.SPRINK GT SCH ×2 (09:20→16:31)
[2017-09-10] MEDS: LORAZEPAM INJ 2 MG/ML VIAL IV SCH ×2 (09:20→21:02)
[2017-09-10] MEDS: FOLIC ACID 1 MG TABLET GT SCH (09:20)
[2017-09-10] MEDS: HYDROGEL DRESSING 90 GM TUBE TP SCH (09:21)
[2017-09-10] MEDS: ZINC SULFATE 220 MG CAPSULE GT SCH (09:32)
[2017-09-10] MEDS: PROSOURCE / PROSTAT (PYXIS) 30 ML UDC GT SCH ×2 (09:32→16:33)
[2017-09-10] MEDS: SIMETHICONE SUSP 40 MG/0.6 ML BOTTLE GT SCH ×2 (09:37→16:31)
[2017-09-10] MEDS ORDERED: TPN BAG #9 IV PRN ×11 (10:00→11:30)
[2017-09-10] MEDS ORDERED: TPN BAG #10 IV PRN ×9 (10:00)
[2017-09-10 10:20] LABS: BAND % (MANUAL) 8 % (0.0-5.0); LYMPHOCYTES % (MANUAL) 7 % (16-48); NEUTROPHILS % (MANUAL) 85 (42-76)
[2017-09-10] MEDS ORDERED: DEXTROSE 5% IV PRN (11:30)
[2017-09-10] MEDS ORDERED: AMINO ACIDS IV PRN (11:30)
[2017-09-10] MEDS ORDERED: MULTIVITAMIN IV PRN (11:30)
[2017-09-10 12:00] VITALS: BP 133/62
[2017-09-10] MEDS: VANCOMYCIN 500 MG in IV D5W 100 ML IV PRN (12:27)
[2017-09-10] MEDS: INSULIN REGULAR, HUMAN 100 UNIT/ML 3 ML VIAL SQ PRN ×2 (12:29→17:50)
[2017-09-10 16:00] VITALS: BP 168/63
[2017-09-10] MEDS: TBO-FILGRASTIM 300 MCG/0.5 ML SYRINGE SQ SCH (16:31)
--- NOTE | 2017-09-10 18:56 | NUR ---
CHAIN SPLITTER CLOSING NOTES NO SIGNIFICANT CHANGES OVERNIGHT. NO signs of RESPIRATORY DISTRESS NOTED. TOLERATING CURRENT VENT SETTINGS. GT PATENT AND INTACT, GAS RELEASED FREQUENTLY. PATIENT STILL WITH ABDOMINAL DISTENTION. NO N/V NOTED. PAIN MANAGED NEEDED. WITH TPN #8 RUNNING at 50ML/HR. ON TELE MONITOR SR THROUGH SHIFT. ALL NEEDS ANTICIPATED AND MET. KEPT CLEAN AND DRY. WOUND TX ORDERED DONE. TURNED AND REPOSITIONED Q2 AND PRN. TRACH CARE DONE. SIDE RAILS UP AND LOCKED. BED KEPT AT LOWEST POSITION. CALL LIGHT KEPT WITHIN EASY REACH. WILL ENDORSE CONTINUITY OF CARE TO AM NURSE. Addendum: 09/10/17 at 1857 by VILMA MENON RN disregard note ,
--- NOTE | 2017-09-10 18:57 | NUR ---
SERVICE DEPARTMENT MANAGER CLOSING NOTES NO SIGNIFICANT CHANGES THROUGHOUT THE DAY . NO SIGNS OF RESPIRATORY DISTRESS NOTED. PT TOLERATING CURRENT VENT SETTINGS. GT PATENT AND INTACT, PATIENT STILL HAS ABDOMINAL DISTENTION. NO N/V NOTED. PAIN MANAGED SCHEDULED . WITH TPN #9 RUNNING at 40ML/HR. PT ON TELE MONITOR SR THROUGH SHIFT. ALL NEEDS ANTICIPATED AND MET. PT KEPT CLEAN AND DRY. WOUND TX ORDERED DONE. TURNED AND REPOSITIONED Q2 AND PT CALL LIGHT KEPT WITHIN EASY REACH. RN WILL ENDORSE CONTINUITY OF CARE TO PM NURSE.
--- NOTE | 2017-09-10 19:54 | NUR ---
ICE GUARD INSPECTOR INITIAL NOTES RECEIVED PATIENT AWAKE, NON-VERBAL, VENT DEPENDENT, ABLE SHAKE HEAD FOR NO AND BLINK FOR YES. NO S/S OF PAIN OR DISCOMFORT. NO RESPIRATORY DISTRESS NOTED. PT VENT SETTING AC16, TV 500, FIO2 40%, PEEP 5. TRACH C/D/I MIDLINE. ON TELE MONITOR SR. SKIN WARM AND DRY TO TOUCH. WITH GENERAL EDEMA NOTED. GT PATENT AND INTACT, IN PLACE. PT STILL ON REVERSE ISOLATION. HOB ELEVATED. SIDE RAILS UP AND LOCKED. BED KEPT AT LOWEST POSITION. RN WILL CONTINUE TO MONITOR THROUGHOUT THE NIGHT .
[2017-09-10 20:00] VITALS: BP 121/78
[2017-09-10] MEDS: CEFEPIME 1 GM in IV D5W 50 ML IV SCH (21:01)
[2017-09-10] MEDS: PYRIDOXINE HCL 50 MG TABLET GT SCH (21:03)
[2017-09-11] VITALS: BP 133/79
[2017-09-11] MEDS: BLOOD SUGAR DIAGNOSTIC 1 EACH STRIP IN SCH ×5 (00:08→23:13)
[2017-09-11] MEDS: INSULIN REGULAR, HUMAN 100 UNIT/ML 3 ML VIAL SQ PRN ×3 (00:17→13:41)
[2017-09-11] MEDS: METRONIDAZOLE 500MG/ NS 100ML 500 MG in PREMIX 1 EA IV SCH ×3 (01:47→17:42)
[2017-09-11 05:47] VITALS: BP 117/69
--- NOTE | 2017-09-11 06:05 | NUR ---
FURNITURE ASSEMBLY SUPERVISOR CLOSING NOTES ENDORSED PATIENT AWAKE, NON-VERBAL, VENT DEPENDENT, ABLE SHAKE HEAD FOR NO AND BLINK FOR YES. NO S/S OF PAIN OR DISCOMFORT. NO RESPIRATORY DISTRESS NOTED. PT VENT SETTING AC16, TV 500, FIO2 40%, PEEP 5. TRACH C/D/I MIDLINE. ON TELE MONITOR SR. SKIN WARM AND DRY TO TOUCH. WITH GENERAL EDEMA NOTED. GT PATENT AND INTACT, IN PLACE. PT STILL ON REVERSE ISOLATION. HOB ELEVATED. SIDE RAILS UP AND LOCKED. BED KEPT AT LOWEST POSITION. RN WILL CONTINUE TO MONITOR THROUGHOUT THE NIGHT .
[2017-09-11 07:44] LABS: CALCIUM, SERUM 8.8 mg/dL (8.5-10.1); CREATININE 4.1 mg/dL (0.6-1.3)
[2017-09-11 07:57] LABS: MAGNESIUM 2.1 mg/dL (1.8-2.4); PHOSPHORUS 3.3 mg/dL (2.5-4.9)
[2017-09-11 08:00] VITALS: BP 150/73
[2017-09-11] MEDS ORDERED: TPN BAG #10 IV PRN ×5 (09:30)
[2017-09-11] MEDS ORDERED: TPN BAG #11 IV PRN ×3 (10:30)
[2017-09-11] MEDS: FOLIC ACID 1 MG TABLET GT SCH (10:54)
[2017-09-11] MEDS: LACTOBACILLUS RHAMNOSUS GG 1 EACH CAP.SPRINK GT SCH ×2 (10:54→17:42)
[2017-09-11] MEDS: SEVELAMER CARBONATE 0.8 GM POWD.PACK GT SCH ×3 (10:55→20:36)
[2017-09-11] MEDS: VIT B CMPLX 3/FA/VIT C/BIOTIN 1 TAB TABLET GT SCH (10:55)
[2017-09-11] MEDS: GABAPENTIN 100 MG CAPSULE GT SCH ×2 (10:55→20:36)
[2017-09-11] MEDS: ZINC SULFATE 220 MG CAPSULE GT SCH (10:56)
[2017-09-11] MEDS: TRAMADOL HCL 50 MG TABLET GT SCH ×2 (10:56→20:37)
[2017-09-11] MEDS: LEVETIRACETAM SOL (5 ML) 100 MG/ML UDC NG SCH ×2 (10:57→20:36)
[2017-09-11] MEDS: Z GUARD REMEDY 2 OZ OINT TP SCH (11:19)
[2017-09-11] MEDS: BACITRACIN/POLYMYXIN B 15 GM TUBE TP SCH (11:19)
[2017-09-11] MEDS: HYDROGEL DRESSING 90 GM TUBE TP SCH (11:20)
[2017-09-11] MEDS: SIMETHICONE SUSP 40 MG/0.6 ML BOTTLE GT SCH ×2 (11:30→19:10)
--- NOTE | 2017-09-11 11:30 | NUR ---
PLEASE NOTE THAT PATIENT HAS HAD STABLE VSS AND REMAINS IN A NSR WITHOUT CARDIAC/RESPIRATORY DISTRESS OR SUPPRESSION. A&O X 1 AND NONVERBAL. TRACH INTUBATED WITH PORTEX #8 ON THE FOLLOWING VENT SETTINGS: AC=16/ VG=834, FIO2=40%, PEEP=5. SUCTIONED Q 2 HOURS FOR MODERATE YELLOW PHLEGM. PATENT INTACT GTUBE. ABDOMEN SOFT WITH AUDIBLE BOWEL SOUNDS. NO JVD BUT GENERALIZED 2+ PITTING EDEMA THROUGHOUT. RIGHT CHEST PERMACATH USED FOR AM HD FROM APPROX. 08:00 TO 11:00 FOR 2,400 CC REMOVED. IV INFUSES VIA LEFT UPPER ARM PICC LINE FOR TPN @ 40 CC/HOUR AND N.S. TKO FOR IV ABXS. SKIN INTACT WITH DRESSINGS TO BILATERAL HEELS UNDER HEEL PROTECTORS. DIAPERED. PLEASE NOTE THAT NURSE GAVE AM MEDS AFTER HD AT APPROX 11:30. NO SIGNS OF ACUTE CARDIAC/RESPIRATORY DISTRESS OR SUPPRESSION.
[2017-09-11] MEDS: PROSOURCE / PROSTAT (PYXIS) 30 ML UDC GT SCH ×2 (11:31→17:42)
[2017-09-11] MEDS: LORAZEPAM INJ 2 MG/ML VIAL IV SCH ×2 (11:31→20:36)
[2017-09-11] MEDS: PANTOPRAZOLE 40 MG VIAL IV SCH (11:32)
[2017-09-11 12:00] VITALS: BP 149/72
--- NOTE | 2017-09-11 13:53 | NUR ---
RN NOTE RECEIVED PT FROM CHRISTIANO AYALA FOR CONTINUITY OF CARE. RECEIVED PT IN NO ACUTE DISTRESS IN BED. PT ON VENT AND TOLERATING WELL. PT IS S/P DIALYSIS WITH 2.4 L OUT. PT TOLERATED DIALYSIS WELL. WILL CONTINUE TO MONITOR FOR ANY CHANGES IN CONDITION.
--- NOTE | 2017-09-11 13:55 | NUR ---
PLEASE NOTE THAT CARE OF THIS PATIENT HANDED OVER TO ANOTHER RN PER STAFFING NEEDS.
--- NOTE | 2017-09-11 15:33 | NUR ---
RN NOTE TRANSFER CARE TO [facility] RN FOR CONTINUITY OF CARE.
[2017-09-11 15:47] LABS: BASOPHILS % (AUTO) 0.2 % (0.0-2.0); EOSINOPHILS % (AUTO) 0.4 % (0.0-6.0); HEMATOCRIT 25 % (39-51); HEMOGLOBIN 8.2 g/dL (13.5-17.5); LYMPHOCYTES # (AUTO) 0.3 /CMM (0.8-4.8); LYMPHOCYTES % (AUTO) 5.3 % (20.0-44.0); MEAN CORPUSCULAR HEMOGLOBIN 33 PG (26.0-33.0); MEAN CORPUSCULAR HGB CONC 33 g/dl (31.0-36.0); MEAN CORPUSCULAR VOLUME 100 fL (80-96); MONOCYTES # (AUTO) 0.2 /CMM (0.1-1.30); MONOCYTES % (AUTO) 3.2 % (2.0-12.0); NEUTROPHILS # (AUTO) 5.2 /CMM (1.8-8.9); NEUTROPHILS % (AUTO) 90.9 % (43.0-81.0); RDW COEFFICIENT OF VARIATION 24.9 (11.5-15.0); RED BLOOD CELL COUNT(AUTO) 2.48 MIL/uL (4.5-6.0); WHITE BLOOD COUNT (AUTO) 5.7 K/uL (4.3-11.0)
[2017-09-11 16:00] VITALS: BP 149/72
--- NOTE | 2017-09-11 16:00 | NUR ---
RN INITIAL NOTE PT RECEIVED IN NO ACUTE DISTRESS AT THIS TIME. ON TELE WITH SR. PT HAS JOANN PICC LINE RUNNING TKO AND TPN. PT IS A/O X1 AND UNABLE TO MAKE NEEDS KNOWN. TRACH AND VENT SETTINGS BEING TOLERATED WELL. COMFORT AND SAFETY MEASURES TO BE ENSURED DURING THE SHIFT. WILL CONTINUE TO MONITOR FOR ANY CHANGES.
[2017-09-11 16:04] LABS: PLATELET COUNT (AUTO) 18 /CMM (150-450)
[2017-09-11 16:39] LABS: LYMPHOCYTES % (MANUAL) 3 % (16-48); NEUTROPHILS % (MANUAL) 91 (42-76)
[2017-09-11 16:40] LABS: EOSINOPHILS % (MANUAL) 1 % (0-4); MONOCYTES % (MANUAL) 5 % (0-11.0)
--- NOTE | 2017-09-11 16:50 | NUR ---
RN NOTE CRITICAL LAB REPORTED FOR PLATELET COUNT OF 18. CALLED OFFICE AND AWAITING CALL BACK FOR ORDER FOR PLATELETS.
[2017-09-11] MEDS: TBO-FILGRASTIM 300 MCG/0.5 ML SYRINGE SQ SCH (17:53)
[2017-09-11 20:00] VITALS: BP 143/76
[2017-09-11] MEDS: CEFEPIME 1 GM in IV D5W 50 ML IV SCH (20:36)
[2017-09-11] MEDS: PYRIDOXINE HCL 50 MG TABLET GT SCH (21:18)
[2017-09-11] MEDS: diphenhydrAMINE HCL 50 MG/ML VIAL IV PRN (23:47)
[2017-09-12] VITALS: BP 147/80
[2017-09-12] MEDS: METRONIDAZOLE 500MG/ NS 100ML 500 MG in PREMIX 1 EA IV SCH ×3 (02:52→17:43)
[2017-09-12 04:00] VITALS: BP 139/70
[2017-09-12] MEDS: BLOOD SUGAR DIAGNOSTIC 1 EACH STRIP IN SCH ×3 (05:16→16:51)
--- NOTE | 2017-09-12 05:45 | NUR ---
REGISTERED MASSAGE THERAPIST CLOSING NOTE PT REMAINS IN NO ACUTE DISTRESS AT THIS TIME. ALL MEDICATIONS AND TREATMENT WAS DONE ORDERED BY . VITALS WNL BUT CONTROLLING TEMP OF 99 WITH COOLING MEASURES. TOLERATING VENT/TRACH WELL AND DEEP SUCTIONED PRN. PT RECEIVED BENADRYL PRN X1 FOR SLEEPING PURPOSES. STILL RECEIVED NO CALL BACK REGARDING PLT COUNT BUT WILL ENDORSE CARE AND INFORMATION TO AM NURSE. COMFORT MEASURES WERE ENSURED DURING THE SHIFT.
[2017-09-12 07:32] LABS: BASOPHILS % (AUTO) 0.7 % (0.0-2.0); EOSINOPHILS # (AUTO) 0.1 /CMM (0.0-0.7); EOSINOPHILS % (AUTO) 1.5 % (0.0-6.0); HEMATOCRIT 24 % (39-51); HEMOGLOBIN 8.3 g/dL (13.5-17.5); LYMPHOCYTES # (AUTO) 0.4 /CMM (0.8-4.8); LYMPHOCYTES % (AUTO) 5.9 % (20.0-44.0); MEAN CORPUSCULAR HEMOGLOBIN 34 PG (26.0-33.0); MEAN CORPUSCULAR HGB CONC 34 g/dl (31.0-36.0); MEAN CORPUSCULAR VOLUME 99 fL (80-96); MONOCYTES # (AUTO) 0.2 /CMM (0.1-1.30); MONOCYTES % (AUTO) 2.3 % (2.0-12.0); NEUTROPHILS # (AUTO) 5.9 /CMM (1.8-8.9); NEUTROPHILS % (AUTO) 89.6 % (43.0-81.0); RDW COEFFICIENT OF VARIATION 23.4 (11.5-15.0); RED BLOOD CELL COUNT(AUTO) 2.45 MIL/uL (4.5-6.0); WHITE BLOOD COUNT (AUTO) 6.6 K/uL (4.3-11.0)
--- NOTE | 2017-09-12 07:40 | NUR ---
BROWNFIELD REDEVELOPMENT SITE MANAGER INITIAL NOTES RECEIVED PATIENT ASLEEP, NON-VERBAL, VENT DEPENDENT, ABLE SHAKE HEAD FOR NO AND BLINK FOR YES. NO S/S OF PAIN OR DISCOMFORT. NO RESPIRATORY DISTRESS NOTED. PT TOLERATING VENT SETTINGS WELL . TRACH C/D/I MIDLINE. ON TELE MONITOR SR. SKIN WARM AND DRY TO TOUCH. WITH GENERAL EDEMA NOTED. GT PATENT AND INTACT, IN PLACE. PT STILL ON REVERSE ISOLATION. HOB ELEVATED. SIDE RAILS UP AND LOCKED. BED KEPT AT LOWEST POSITION. RN WILL CONTINUE TO MONITOR THROUGHOUT THE DAY .
[2017-09-12 07:45] LABS: PLATELET COUNT (AUTO) 16 /CMM (150-450)
[2017-09-12 07:49] LABS: CALCIUM, SERUM 8.8 mg/dL (8.5-10.1); CREATININE 3.7 mg/dL (0.6-1.3); MAGNESIUM 1.9 mg/dL (1.8-2.4); PHOSPHORUS 3.4 mg/dL (2.5-4.9); POTASSIUM 3.9 mmol/L (3.5-5.1)
[2017-09-12 08:00] VITALS: BP 175/82
[2017-09-12] MEDS: PROSOURCE / PROSTAT (PYXIS) 30 ML UDC GT SCH ×2 (09:39→16:50)
[2017-09-12] MEDS: LACTOBACILLUS RHAMNOSUS GG 1 EACH CAP.SPRINK GT SCH ×2 (09:39→16:50)
[2017-09-12] MEDS: ZINC SULFATE 220 MG CAPSULE GT SCH (09:39)
[2017-09-12] MEDS: FOLIC ACID 1 MG TABLET GT SCH (09:39)
[2017-09-12] MEDS: LEVETIRACETAM SOL (5 ML) 100 MG/ML UDC NG SCH ×2 (09:39→20:40)
[2017-09-12] MEDS: SEVELAMER CARBONATE 0.8 GM POWD.PACK GT SCH ×3 (09:39→20:40)
[2017-09-12] MEDS: VIT B CMPLX 3/FA/VIT C/BIOTIN 1 TAB TABLET GT SCH (09:39)
[2017-09-12] MEDS: SIMETHICONE SUSP 40 MG/0.6 ML BOTTLE GT SCH ×2 (09:40→16:51)
[2017-09-12] MEDS: GABAPENTIN 100 MG CAPSULE GT SCH ×2 (09:40→20:39)
[2017-09-12] MEDS: TRAMADOL HCL 50 MG TABLET GT SCH ×2 (09:40→20:40)
[2017-09-12] MEDS: Z GUARD REMEDY 2 OZ OINT TP SCH (09:41)
[2017-09-12] MEDS: HYDROGEL DRESSING 90 GM TUBE TP SCH (09:41)
[2017-09-12] MEDS: BACITRACIN/POLYMYXIN B 15 GM TUBE TP SCH (09:42)
[2017-09-12 09:49] LABS: BAND % (MANUAL) 2 % (0.0-5.0); EOSINOPHILS % (MANUAL) 1 % (0-4); LYMPHOCYTES % (MANUAL) 2 % (16-48); MONOCYTES % (MANUAL) 3 % (0-11.0); NEUTROPHILS % (MANUAL) 92 (42-76)
[2017-09-12] MEDS: LORAZEPAM INJ 2 MG/ML VIAL IV SCH ×2 (09:50→21:42)
[2017-09-12] MEDS: PANTOPRAZOLE 40 MG VIAL IV SCH (09:51)
[2017-09-12] MEDS: INSULIN REGULAR, HUMAN 100 UNIT/ML 3 ML VIAL SQ PRN (11:01)
[2017-09-12 12:00] VITALS: BP 171/77
--- NOTE | 2017-09-12 13:08 | NUR ---
RN NOTER\ RN RECEIVED CALL FROM PHARMACY , TPN BAG #10 NOT SCANNED BY PREVIOUS RN , INFORMED TO SCAN TPN BAG LETY , 5 HR REMAINING ON CURRENT TPN BAG RN WILL CONTINUE TO FOLLOW
[2017-09-12] MEDS: TBO-FILGRASTIM 300 MCG/0.5 ML SYRINGE SQ SCH (15:34)
[2017-09-12 16:00] VITALS: BP 185/73
[2017-09-12] MEDS: hydrALAZINE HCL IV 20 MG VIAL IV PRN (17:02)
--- NOTE | 2017-09-12 18:58 | NUR ---
RN CLOSING NOTE PATIENT REMAINS STABLE THROUGHOUT THE SHIFT NO CHANGE IN ADLS , NO SOB NOTED , NO FEVER NOTED LABS EXCEPTED 1 BM NOTED , PATIENT TURNED AND REPOSITIONED X2 HR FAMILY VISITED THROUGHOUT THE DAY NOT CONCERNS NOTED FAMILY UPDATED ON PLAN OF CARE , SAFETY MEASURES INSURED CALL LIGHT WITHIN REACH RN WILL ENDORSE FURTHER CARE TO PM RN TOLERATING VENT SETTING WELL NO ISSUES NOTED WOUND CARE PROVIDED WOUND HEALING EXPECTED
[2017-09-12 20:00] VITALS: BP 144/65
--- NOTE | 2017-09-12 20:00 | NUR ---
VSS 98.2-77 NORMAL SINUS RHYTHM-20 BP 144/65. SATS 100%. PATIENT IS TRACHED WITH A PORTEX #8 ON THE FOLLOWING VENT SETTINGS: AC=16, LJ=552, FIO2=40%, PEEP=5. LUNGS AUSULTATE RHONCI BILATERALLY AND PATIENT IS SUCTIONED FOR A MODERATE AMOUNT OF THICK YELLOW PHLEGM AFTER TURNING AND REPOSITIONING. PATIENT IS A&O X 1, NONVERBAL, LOOKS DIRECTLY AT NURSE BUT IS PHYSICALLY UNABLE TO OBEY COMMANDS. SKIN WARM, DRY, AND INTACT WITH LEFT UPPER ARM PICC LINE FOR TPN @ 40CC/HOUR AND NORMAL SALINE TKO AROUND IV ANTIBIOTICS. NO SKIN BREAKDOWN. ABDOMEN SOFTLY DISTENDED WITH AUDIBLE BOWEL AND A CLAMPTED GTUBE TO LEFT MID QUADRANT. NO JVD WITH ALL PERIPHERAL PULSES PALPABLE. NURSE NOTED A 1+ GENERALIZED EDEMA BUT NO ACTIVE ROM NOTED AT THIS TIME BUT ASSESSMENT IS ONGOING. INDWELLING VÁZQUEZ CATHETER FOR QUANITY SUFFICIENT OF A CLEAR YELLOW URINE. NO SIGNS OF ACUTE CARDIAC/RESPIRATORY DISTRESS OR SUPPRESSION.
[2017-09-12] MEDS: CEFEPIME 1 GM in IV D5W 50 ML IV SCH (20:33)
[2017-09-12] MEDS: PYRIDOXINE HCL 50 MG TABLET GT SCH (21:42)
[2017-09-13] VITALS: BP 134/61
--- NOTE | 2017-09-13 | NUR ---
VSS 98.4-78 NSR-19 BP 134/61. SATS 100% ON SAME VENT SETTINGS: AC=16, PX=319, FIO2=40%, PEEP=5. NURSE COMPLETED TRACH CARE AND SUCTIONED PATIENT FOR A THICK YELLOW PHLEGM. TPN CONTINUES AT 40 CC/HOUR. [id number]=497 MG/DL----COVERED WITH 6 UNITS HUMULIN REGULAR INSULIN SQ. PATIENT SHOWS NO SIGNS OF ACUTE HYPO-HYPERGLYCEMIAS. PATIENT RESTS COMFORTABLY IN REVERSE ISOLATION. PATIENT SHOWS NO SIGNS OF ACUTE CARDIAC/RESPIRATORY DISTRESS OR SUPPRESSION.
[2017-09-13] MEDS: INSULIN REGULAR, HUMAN 100 UNIT/ML 3 ML VIAL SQ PRN ×4 (00:16→23:16)
[2017-09-13] MEDS: METRONIDAZOLE 500MG/ NS 100ML 500 MG in PREMIX 1 EA IV SCH ×3 (01:45→17:05)
[2017-09-13 04:00] VITALS: BP 160/75
--- NOTE | 2017-09-13 04:00 | NUR ---
VSS 98.0-78 NSR-19 BP 160/75. SATS 100% ON SAME VENT SETTINGS. AC=16, WP=125, FIO2=40%, PEEP=5. PATIENT SHOWS NO SIGNS OF ACUTE CARDIAC/RESPIRATORY DISTRESS OR SUPPRESSION. TRACH CARE COMPLETED AND SUCTIONED FOR A THICK YELLOW PHLEGM AFTER TURNING.
--- NOTE | 2017-09-13 06:00 | NUR ---
AM ARZJPUZUK=691 MG/DL----NO INSULIN PER SLIDING SCALE COVERAGE ORDER. PATIENT SHOWS NO SIGNS OF ACUTE HYPO-HYPERGLYCEMIA. TPN CONTINUES @ 40 CC/HOUR. STABLE BUT GUARDED CONDITION.
[2017-09-13] MEDS: BLOOD SUGAR DIAGNOSTIC 1 EACH STRIP IN SCH ×5 (06:54→23:15)
--- NOTE | 2017-09-13 07:56 | NUR ---
VIRTUAL ASSISTANT FOR ADVERTISERS NOTES RECEIVED PATIENT IN BED, EYES OPEN. ON TELE MONITOR SINUS RHYTHM HR 84. PATIENT IS ON NPO EXCEPT MEDS PER REPORT, JOANN PICC LINE PATENT AND INTACT, TPN AT 40ML/HR FOR NUTRITIONAL SUPPORT. ON DIALYSIS TREATMENT, LAST HD WAS 09/11/17 PER REPORT. ON VENT. APPEARS COMFORTABLE IN BED. CALL LIGHT WITHIN REACH. WILL CONT TO MONITOR.
[2017-09-13] MEDS: SEVELAMER CARBONATE 0.8 GM POWD.PACK GT SCH ×3 (08:19→20:54)
[2017-09-13] MEDS: LEVETIRACETAM SOL (5 ML) 100 MG/ML UDC NG SCH ×2 (08:19→20:54)
[2017-09-13] MEDS: FOLIC ACID 1 MG TABLET GT SCH (08:20)
[2017-09-13] MEDS: GABAPENTIN 100 MG CAPSULE GT SCH ×2 (08:20→20:54)
[2017-09-13] MEDS: VIT B CMPLX 3/FA/VIT C/BIOTIN 1 TAB TABLET GT SCH (08:20)
[2017-09-13] MEDS: ZINC SULFATE 220 MG CAPSULE GT SCH (08:20)
[2017-09-13] MEDS: TRAMADOL HCL 50 MG TABLET GT SCH ×2 (08:22→20:55)
[2017-09-13] MEDS: PROSOURCE / PROSTAT (PYXIS) 30 ML UDC GT SCH ×2 (08:23→16:22)
[2017-09-13] MEDS: LACTOBACILLUS RHAMNOSUS GG 1 EACH CAP.SPRINK GT SCH ×2 (08:23→16:19)
[2017-09-13 08:35] LABS: CALCIUM, SERUM 8.6 mg/dL (8.5-10.1); CREATININE 4.2 mg/dL (0.6-1.3); MAGNESIUM 2.1 mg/dL (1.8-2.4); PHOSPHORUS 4.2 mg/dL (2.5-4.9); POTASSIUM 3.9 mmol/L (3.5-5.1)
[2017-09-13] MEDS: HYDROGEL DRESSING 90 GM TUBE TP SCH (08:38)
[2017-09-13] MEDS: Z GUARD REMEDY 2 OZ OINT TP SCH (08:38)
[2017-09-13] MEDS: BACITRACIN/POLYMYXIN B 15 GM TUBE TP SCH (08:39)
[2017-09-13] MEDS: SIMETHICONE SUSP 40 MG/0.6 ML BOTTLE GT SCH ×2 (08:41→16:19)
[2017-09-13] MEDS: LORAZEPAM INJ 2 MG/ML VIAL IV SCH ×2 (09:37→20:54)
[2017-09-13 10:22] VITALS: BP 115/78
[2017-09-13] MEDS: PANTOPRAZOLE 40 MG VIAL IV SCH (11:09)
[2017-09-13 11:32] LABS: BASOPHILS % (AUTO) 0.4 % (0.0-2.0); EOSINOPHILS # (AUTO) 0.1 /CMM (0.0-0.7); EOSINOPHILS % (AUTO) 1.5 % (0.0-6.0); HEMATOCRIT 23 % (39-51); HEMOGLOBIN 7.8 g/dL (13.5-17.5); LYMPHOCYTES # (AUTO) 0.3 /CMM (0.8-4.8); LYMPHOCYTES % (AUTO) 5.3 % (20.0-44.0); MEAN CORPUSCULAR HEMOGLOBIN 34 PG (26.0-33.0); MEAN CORPUSCULAR HGB CONC 34 g/dl (31.0-36.0); MEAN CORPUSCULAR VOLUME 100 fL (80-96); MONOCYTES # (AUTO) 0.1 /CMM (0.1-1.30); NEUTROPHILS # (AUTO) 5.1 /CMM (1.8-8.9); NEUTROPHILS % (AUTO) 90.8 % (43.0-81.0); RDW COEFFICIENT OF VARIATION 23.6 (11.5-15.0); RED BLOOD CELL COUNT(AUTO) 2.33 MIL/uL (4.5-6.0); WHITE BLOOD COUNT (AUTO) 5.6 K/uL (4.3-11.0)
[2017-09-13 11:36] LABS: PLATELET COUNT (AUTO) 20 /CMM (150-450)
[2017-09-13 12:00] VITALS: BP 140/66
[2017-09-13 12:03] LABS: BAND % (MANUAL) 18 % (0.0-5.0); LYMPHOCYTES % (MANUAL) 8 % (16-48); MONOCYTES % (MANUAL) 4 % (0-11.0); NEUTROPHILS % (MANUAL) 70 (42-76)
[2017-09-13] MEDS ORDERED: TPN BAG #12 IV PRN ×5 (13:00)
--- NOTE | 2017-09-13 14:00 | NUR ---
DIALYSIS TREATMENT STARTED, DIALYSIS NURSE-AMET AT THE BEDSIDE.
--- NOTE | 2017-09-13 15:52 | NUR ---
DIALYSIS TREATMENT DONE WITH 3L FLUID FLUID OUTPUT PER AMET, DIALYSIS NURSE. BP131/69 PULSE 94
[2017-09-13] MEDS: TBO-FILGRASTIM 300 MCG/0.5 ML SYRINGE SQ SCH (15:59)
[2017-09-13 16:00] VITALS: BP 142/60
--- NOTE | 2017-09-13 16:04 | NUR ---
ANC 4.9 PER PHARMACY. GRANIX 300MCG 0.5ML SQ GIVEN ORDERED.
[2017-09-13] MEDS: VANCOMYCIN 500 MG in IV D5W 100 ML IV PRN (18:18)
--- NOTE | 2017-09-13 18:42 | NUR ---
ELECTROPLATING LABORER CLOSING NOTES PATIENT IN BED, NON VERBAL, OPEN EYES. ON TELE MONITOR SINUS RHYTHM HR 89. ON VENT SETTINGS REMAIN THE SAME PER PULMO. SUCTION PRN. POST DIALYSIS TREATMENT TODAY, TOLERATING WELL. REMAINS NPO EXCEPT MEDS, CONT ON TPN AT 40M/HR FOR NUTRITIONAL SUPPORT. DRESSING CHANGED IN SACRAL WOUND, ON DIDIER MATTRESS, CONT TURNING AND REPOSITIONING Q 2HR. ABDOMEN STILL DISTENDED, PRESENCE OF GTUBE-CLAMPED. STOMA SITE WITH MINIMAL LEAKING, COVERED WITH GAUZE, PATIENT IS SEEN BY DR. HERNANDEZ TODAY, AWARE OF LEAKING STOMA. ON ANTIBIOTIC WITH NO ADVERSE REACTION, AFEBRILE. ON REVERSE ISOLATION. WILL ENDORSE TO SCRIBING MACHINE OPERATOR RN FOR KRYS.
--- NOTE | 2017-09-13 19:05 | NUR ---
UNDERWEAR WELTER OPENING NOTES RECEIVED REPORT FROM MICHELLE AYALA. PATIENT A/A/O X1, NON-VERBAL & UNABLE TO MAKE NEEDS KNOWN. NO RESPIRATORY DISTRESS NOTED. TRACH INTACT W/ VENT SETTINGS AC 16, TV 500, FIO2 40%, PEEP 5. TOLERATING WELL. ON TELE SINUS RHYTHM IN THE 80S. LEFT UPPER ARM PICC LINE INTACT & PATENT W/ DRESSING CDI & TPN @ 40 ML/HR. G-TUBE INTACT & FLUSHING WELL, CLAMPED @ THIS TIME. SAFETY MEASURES IN PLACE W/ SIDE RAILS UP & BED LOCKED & IN LOWEST POSITION. REVERSE ISOLATION MAINTAINED. WILL CONTINUE TO MONITOR.
[2017-09-13 20:00] VITALS: BP 147/69
[2017-09-13] MEDS: CEFEPIME 1 GM in IV D5W 50 ML IV SCH (20:54)
[2017-09-13] MEDS: PYRIDOXINE HCL 50 MG TABLET GT SCH (23:11)
[2017-09-14] VITALS (7 sets, daily range): BP systolic 145–173; BP diastolic 67–83
[2017-09-14] MEDS: METRONIDAZOLE 500MG/ NS 100ML 500 MG in PREMIX 1 EA IV SCH ×3 (03:21→17:46)
[2017-09-14] MEDS: BLOOD SUGAR DIAGNOSTIC 1 EACH STRIP IN SCH ×3 (05:34→17:38)
[2017-09-14] MEDS: INSULIN REGULAR, HUMAN 100 UNIT/ML 3 ML VIAL SQ PRN ×2 (05:35→12:12)
[2017-09-14 07:02] LABS: BASOPHILS % (AUTO) 0.2 % (0.0-2.0); EOSINOPHILS # (AUTO) 0.1 /CMM (0.0-0.7); HEMATOCRIT 25 % (39-51); HEMOGLOBIN 8.2 g/dL (13.5-17.5); LYMPHOCYTES # (AUTO) 0.4 /CMM (0.8-4.8); LYMPHOCYTES % (AUTO) 4.1 % (20.0-44.0); MEAN CORPUSCULAR HEMOGLOBIN 34 PG (26.0-33.0); MEAN CORPUSCULAR HGB CONC 34 g/dl (31.0-36.0); MEAN CORPUSCULAR VOLUME 102 fL (80-96); MONOCYTES # (AUTO) 0.2 /CMM (0.1-1.30); MONOCYTES % (AUTO) 2.3 % (2.0-12.0); NEUTROPHILS # (AUTO) 9.2 /CMM (1.8-8.9); NEUTROPHILS % (AUTO) 92.4 % (43.0-81.0); RDW COEFFICIENT OF VARIATION 24.1 (11.5-15.0); RED BLOOD CELL COUNT(AUTO) 2.42 MIL/uL (4.5-6.0); WHITE BLOOD COUNT (AUTO) 9.9 K/uL (4.3-11.0)
[2017-09-14 07:20] LABS: CALCIUM, SERUM 8.2 mg/dL (8.5-10.1); CREATININE 4.1 mg/dL (0.6-1.3); PHOSPHORUS 3.9 mg/dL (2.5-4.9); POTASSIUM 3.8 mmol/L (3.5-5.1)
--- NOTE | 2017-09-14 07:50 | NUR ---
TOOL AND DIE MAKER/DESIGNER OPENING NOTE PATIENT IS ALERT AND ORIENTED x1, NON-VERBAL, UNABLE TO MAKE NEEDS KNOWN. TRACH INTACT W/ VENT SETTINGS AC 16, TV 500, FIO2 40%, PEEP 5. TOLERATING WELL. ON TELE WITH NORMAL SINUS RHYTHM IN 70s. BEDREST AT THIS TIME. LEFT UPPER ARM PICC INTACT AND PATENT, WILL KEEP CLEAN AND DRY. TPN AT 40 ML/HR, PER NIGHT RN TPN TO BE CHANGED TO 50 ML/HR TODAY WILL FOLLOW UP WITH PHARMACY AND CLARIFY. G-TUBE INTACT AND PATENT, FLUSHES WELL AND IS CLAMPED AT THIS TIME. SAFETY MEASURES IMPLEMENTED AND BED LOCKED IN LOWEST POSITION. REVERSE ISOLATION IN PLACE. WILL CONTINUE TO MONITOR THROUGHOUT SHIFT.
[2017-09-14 09:04] LABS: PLATELET COUNT (AUTO) 23 /CMM (150-450)
[2017-09-14] MEDS: PROSOURCE / PROSTAT (PYXIS) 30 ML UDC GT SCH ×3 (09:08→17:38)
[2017-09-14] MEDS: LEVETIRACETAM SOL (5 ML) 100 MG/ML UDC NG SCH ×2 (09:09→20:39)
[2017-09-14] MEDS: TRAMADOL HCL 50 MG TABLET GT SCH ×2 (09:09→20:39)
[2017-09-14] MEDS: LACTOBACILLUS RHAMNOSUS GG 1 EACH CAP.SPRINK GT SCH ×2 (09:09→17:38)
[2017-09-14] MEDS: SEVELAMER CARBONATE 0.8 GM POWD.PACK GT SCH ×3 (09:09→20:39)
[2017-09-14] MEDS: VIT B CMPLX 3/FA/VIT C/BIOTIN 1 TAB TABLET GT SCH (09:09)
[2017-09-14] MEDS: GABAPENTIN 100 MG CAPSULE GT SCH ×2 (09:09→20:39)
[2017-09-14] MEDS: FOLIC ACID 1 MG TABLET GT SCH (09:09)
[2017-09-14] MEDS: ZINC SULFATE 220 MG CAPSULE GT SCH (09:09)
[2017-09-14] MEDS: Z GUARD REMEDY 2 OZ OINT TP SCH (09:10)
[2017-09-14] MEDS: HYDROGEL DRESSING 90 GM TUBE TP SCH (09:10)
[2017-09-14] MEDS: BACITRACIN/POLYMYXIN B 15 GM TUBE TP SCH (09:11)
[2017-09-14] MEDS: LORAZEPAM INJ 2 MG/ML VIAL IV SCH ×2 (09:12→20:40)
[2017-09-14] MEDS: SIMETHICONE SUSP 40 MG/0.6 ML BOTTLE GT SCH ×2 (09:12→17:40)
[2017-09-14 11:03] LABS: BAND % (MANUAL) 7 % (0.0-5.0); LYMPHOCYTES % (MANUAL) 1 % (16-48); NEUTROPHILS % (MANUAL) 92 (42-76)
[2017-09-14] MEDS: PANTOPRAZOLE 40 MG VIAL IV SCH (12:04)
--- NOTE | 2017-09-14 12:30 | NUR ---
GANG WORKER NOTE TRACH CARE DONE, DRESSING CHANGED, AND TIES CHANGED. WILL CONTINUE TO MONITOR, AND CHANGE NEEDED
[2017-09-14] MEDS ORDERED: TPN BAG #13 IV PRN ×3 (14:30)
[2017-09-14] MEDS ORDERED: TPN BAG #14 IV PRN ×5 (14:30)
[2017-09-14] MEDS: TBO-FILGRASTIM 300 MCG/0.5 ML SYRINGE SQ SCH (15:19)
[2017-09-14] MEDS: IV NS 0.9% 500 ML IV PRN (16:01)
--- NOTE | 2017-09-14 18:16 | NUR ---
HISTORIC SITES SUPERVISOR CLOSING NOTE PATIENT IS ALERT AND ORIENTED x1, NON-VERBAL, EYE RESPONSE. TRACH INTACT W/ VENT SETTINGS AC 16, TV 500, FIO2 40%, PEEP 5. TOLERATING WELL. TRACH CARE DONE, WOUND CARE DONE. G-TUBE DRESSING INTACT AND PATENT, G-TUBE OKAY TO BE USED FOR MEDICATIONS AND FLUSHES WELL. CURRENTLY ON TPN #13 AT 40 ML/HR TOLERATING WELL. BLOOD SUGARS MONITORED THROUGHOUT SHIFT, 127. LEFT UPPER MIDLINE INTACT AND PATENT, DRESSING CLEAN, CURRENTLY FLAGYL RUNNING AT THIS TIME AT 100 ML/HR. WILL RECEIVE HEMODIALYSIS TOMORROW. LABS IN AM. WILL ENDORSE TO BENCH HAND MACHINE NURSE FOR KRYS
--- NOTE | 2017-09-14 19:30 | NUR ---
MAGNETIC RESONANCE IMAGING COORDINATOR INITIAL NOTE PATIENT IS ALERT AND ORIENTED x1, NON-VERBAL, SOMETIMES ABLE TO NOD YES/NO TO MAKE NEEDS KNOWN, UNDERSTANDS BELARUSIAN AND NIUEAN. TRACH INTACT W/ VENT SETTINGS PRESCRIBED, TOLERATING WELL. ON TELEMETRY MONITORING REVEALING SINUS RHYTHM IN 80s. BEDREST AT THIS TIME. LEFT UPPER ARM PICC INTACT AND PATENT, WILL KEEP CLEAN AND DRY. TPN INFUSING AT 40 ML/HR. G-TUBE INTACT AND PATENT, FLUSHES WELL AND IS CLAMPED AT THIS TIME. SAFETY MEASURES IMPLEMENTED AND BED LOCKED IN LOWEST POSITION. REVERSE ISOLATION IN PLACE. WILL CONTINUE TO MONITOR THROUGHOUT SHIFT.
[2017-09-14] MEDS: CEFEPIME 1 GM in IV D5W 50 ML IV SCH (20:39)
[2017-09-14] MEDS: PYRIDOXINE HCL 50 MG TABLET GT SCH (21:01)
[2017-09-15] VITALS: BP 147/66
[2017-09-15] MEDS: BLOOD SUGAR DIAGNOSTIC 1 EACH STRIP IN SCH ×4 (01:06→17:00)
[2017-09-15] MEDS: METRONIDAZOLE 500MG/ NS 100ML 500 MG in PREMIX 1 EA IV SCH ×3 (01:06→17:00)
[2017-09-15 04:00] VITALS: BP 159/71
[2017-09-15] MEDS: INSULIN REGULAR, HUMAN 100 UNIT/ML 3 ML VIAL SQ PRN (06:14)
--- NOTE | 2017-09-15 06:45 | NUR ---
RN CLOSING NOTES PATIENT RESTING IN BED, APPEARS COMFORTABLE. ON MECHANICAL VENT AT PRESCRIBED SETTINGS, TOLERATING WELL THROUGHOUT SHIFT. CONTINUES ON IVF NS @ 20ML/HR AND TPN (BAG #13) @40ML/HR. WILL ENDORSE THE PATIENT TO THE AM SHIFT NURSE FOR CONTINUITY OF CARE
[2017-09-15 07:50] LABS: CALCIUM, SERUM 8.3 mg/dL (8.5-10.1); CREATININE 4.4 mg/dL (0.6-1.3); MAGNESIUM 2.2 mg/dL (1.8-2.4); PHOSPHORUS 5.1 mg/dL (2.5-4.9); POTASSIUM 3.9 mmol/L (3.5-5.1)
[2017-09-15 08:00] VITALS: BP 165/77
[2017-09-15 08:20] LABS: BASOPHILS % (AUTO) 0.2 % (0.0-2.0); EOSINOPHILS # (AUTO) 0.2 /CMM (0.0-0.7); EOSINOPHILS % (AUTO) 1.7 % (0.0-6.0); HEMATOCRIT 23 % (39-51); HEMOGLOBIN 7.8 g/dL (13.5-17.5); LYMPHOCYTES # (AUTO) 0.3 /CMM (0.8-4.8); LYMPHOCYTES % (AUTO) 3.3 % (20.0-44.0); MEAN CORPUSCULAR HEMOGLOBIN 34 PG (26.0-33.0); MEAN CORPUSCULAR HGB CONC 34 g/dl (31.0-36.0); MEAN CORPUSCULAR VOLUME 100 fL (80-96); MONOCYTES # (AUTO) 0.2 /CMM (0.1-1.30); MONOCYTES % (AUTO) 2.6 % (2.0-12.0); NEUTROPHILS # (AUTO) 8.1 /CMM (1.8-8.9); NEUTROPHILS % (AUTO) 92.2 % (43.0-81.0); RDW COEFFICIENT OF VARIATION 23.7 (11.5-15.0); RED BLOOD CELL COUNT(AUTO) 2.29 MIL/uL (4.5-6.0); WHITE BLOOD COUNT (AUTO) 8.8 K/uL (4.3-11.0)
[2017-09-15 08:27] LABS: PLATELET COUNT (AUTO) 22 /CMM (150-450)
[2017-09-15] MEDS: LACTOBACILLUS RHAMNOSUS GG 1 EACH CAP.SPRINK GT SCH ×2 (08:31→16:49)
[2017-09-15] MEDS: GABAPENTIN 100 MG CAPSULE GT SCH ×2 (08:31→22:17)
[2017-09-15] MEDS: FOLIC ACID 1 MG TABLET GT SCH (08:31)
[2017-09-15] MEDS: SEVELAMER CARBONATE 0.8 GM POWD.PACK GT SCH ×3 (08:31→22:18)
[2017-09-15] MEDS: TRAMADOL HCL 50 MG TABLET GT SCH ×2 (08:31→21:00)
[2017-09-15] MEDS: VIT B CMPLX 3/FA/VIT C/BIOTIN 1 TAB TABLET GT SCH (08:31)
[2017-09-15] MEDS: LEVETIRACETAM SOL (5 ML) 100 MG/ML UDC NG SCH ×2 (08:32→22:31)
[2017-09-15] MEDS: ZINC SULFATE 220 MG CAPSULE GT SCH (08:32)
[2017-09-15] MEDS: PROSOURCE / PROSTAT (PYXIS) 30 ML UDC GT SCH ×3 (08:32→16:49)
[2017-09-15] MEDS: HYDROGEL DRESSING 90 GM TUBE TP SCH (08:32)
[2017-09-15] MEDS: Z GUARD REMEDY 2 OZ OINT TP SCH (08:32)
[2017-09-15] MEDS: LORAZEPAM INJ 2 MG/ML VIAL IV SCH ×2 (08:33→22:16)
[2017-09-15] MEDS: BACITRACIN/POLYMYXIN B 15 GM TUBE TP SCH (08:33)
[2017-09-15] MEDS: SIMETHICONE SUSP 40 MG/0.6 ML BOTTLE GT SCH ×2 (08:34→16:50)
[2017-09-15] MEDS ORDERED: EPOETIN ALFA (10,000 UNIT) 10,000 UNIT/ML VIAL SQ SCH (09:30)
[2017-09-15] MEDS: PANTOPRAZOLE 40 MG VIAL IV SCH (11:02)
[2017-09-15 11:28] LABS: BAND % (MANUAL) 1 % (0.0-5.0); EOSINOPHILS % (MANUAL) 2 % (0-4); LYMPHOCYTES % (MANUAL) 6 % (16-48); MONOCYTES % (MANUAL) 3 % (0-11.0); NEUTROPHILS % (MANUAL) 88 (42-76)
[2017-09-15 12:00] VITALS: BP 144/69
--- NOTE | 2017-09-15 14:03 | NUR ---
RN NOTE CENTRAL LINE DRESSING CHANGED ASEPTIC TECHNIQUE PERFORMED PT TOLERATED WELL.
[2017-09-15] MEDS: TBO-FILGRASTIM 300 MCG/0.5 ML SYRINGE SQ SCH (15:13)
[2017-09-15] MEDS: CLONIDINE HCL 0.1MG/24H PTWK 1 EA PATCH TD SCH (15:28)
[2017-09-15 16:00] VITALS: BP 165/40
[2017-09-15 20:00] VITALS: BP 171/79
[2017-09-15] MEDS: hydrALAZINE HCL IV 20 MG VIAL IV PRN (20:52)
--- NOTE | 2017-09-15 22:00 | NUR ---
RN NOTES PATIENT NOTED TO BE ON SURGICAL SCHEDULE LIST TOMORROW 09/16/17 FOR ESOPHAGOGASTRODUODENOSCOPY COMPLEX. CALLED AND SPOKE TO THE PATIENT'S DAUGHTER BERHANE COLLIER [phone]. CONSENT FOR PROCEDURE AND ANESTHESIA OBTAINED, EXISTING BLOOD TRANSFUSION CONSENT LOCATED IN CHART. WILL CONTINUE TO CLOSELY MONITOR THE PATIENT
[2017-09-15] MEDS: PYRIDOXINE HCL 50 MG TABLET GT SCH (22:16)
[2017-09-15] MEDS: diphenhydrAMINE HCL 50 MG/ML VIAL IV PRN (22:16)
[2017-09-15] MEDS: IV NS 0.9% 500 ML IV PRN (22:29)
[2017-09-16] VITALS (8 sets, daily range): BP systolic 139–158; BP diastolic 58–78
[2017-09-16] MEDS: BLOOD SUGAR DIAGNOSTIC 1 EACH STRIP IN SCH ×4 (00:46→17:06)
--- NOTE | 2017-09-16 07:00 | NUR ---
RN NOTES PATIENT RESTING IN BED, NPO/GT CLAMPED SINCE MN. CONTINUES ON TPN, MECHANICAL VENT AT PRESCRIBED SETTINGS. WILL ENDORSE THE PATIENT TO THE AM SHIFT NURSE FOR KRYS
[2017-09-16 07:05] LABS: MAGNESIUM 2.1 mg/dL (1.8-2.4); PHOSPHORUS 4.8 mg/dL (2.5-4.9)
--- NOTE | 2017-09-16 07:31 | NUR ---
RN INITIAL NOTE PT STABLE. EGD BEING DONE @ BEDSIDE CONSENT SIGNED AND IN CHART. ALL SAFETY MEASURES IN PLACE. WILL CONTINUE TO MONITOR PATIENT CLOSELY. PT CLEAN AND DRY.
--- NOTE | 2017-09-16 08:10 | NUR ---
RN NOTE DR. HERNANDEZ CANCELLED EGD ON PT.
[2017-09-16] MEDS: LACTOBACILLUS RHAMNOSUS GG 1 EACH CAP.SPRINK GT SCH ×2 (08:24→16:41)
[2017-09-16] MEDS: FOLIC ACID 1 MG TABLET GT SCH (08:25)
[2017-09-16] MEDS: ZINC SULFATE 220 MG CAPSULE GT SCH (08:26)
[2017-09-16] MEDS: VIT B CMPLX 3/FA/VIT C/BIOTIN 1 TAB TABLET GT SCH (08:26)
[2017-09-16] MEDS: GABAPENTIN 100 MG CAPSULE GT SCH ×2 (08:26→21:33)
[2017-09-16] MEDS: SEVELAMER CARBONATE 0.8 GM POWD.PACK GT SCH ×3 (08:26→21:33)
[2017-09-16] MEDS: PROSOURCE / PROSTAT (PYXIS) 30 ML UDC GT SCH ×3 (08:29→16:41)
[2017-09-16] MEDS: LEVETIRACETAM SOL (5 ML) 100 MG/ML UDC NG SCH ×2 (08:30→21:33)
[2017-09-16] MEDS: TRAMADOL HCL 50 MG TABLET GT SCH ×2 (08:30→21:33)
[2017-09-16] MEDS: SIMETHICONE SUSP 40 MG/0.6 ML BOTTLE GT SCH ×2 (08:39→16:42)
[2017-09-16] MEDS: BACITRACIN/POLYMYXIN B 15 GM TUBE TP SCH (08:40)
[2017-09-16] MEDS: Z GUARD REMEDY 2 OZ OINT TP SCH (08:40)
[2017-09-16] MEDS: HYDROGEL DRESSING 90 GM TUBE TP SCH (08:40)
[2017-09-16] MEDS: LORAZEPAM INJ 2 MG/ML VIAL IV SCH ×2 (09:42→21:33)
[2017-09-16] MEDS ORDERED: TPN BAG #15 IV PRN ×3 (10:00)
[2017-09-16 10:31] LABS: CALCIUM, SERUM 8.6 mg/dL (8.5-10.1); CREATININE 4.1 mg/dL (0.6-1.3); POTASSIUM 3.7 mmol/L (3.5-5.1)
[2017-09-16] MEDS: PANTOPRAZOLE 40 MG VIAL IV SCH (11:45)
[2017-09-16] MEDS: INSULIN REGULAR, HUMAN 100 UNIT/ML 3 ML VIAL SQ PRN (11:53)
[2017-09-16] MEDS: TBO-FILGRASTIM 300 MCG/0.5 ML SYRINGE SQ SCH (15:17)
--- NOTE | 2017-09-16 19:20 | NUR ---
RN INITIAL NOTE RECEIVED PT IN NO ACUTE DISTRESS IN BED. PT IS A/O X 1-2 AND ABLE TO NOD HEAD YES/NO. PT IS ON MECHANICAL VENT VIA TRACH. TRACH SITE IS CLEAN DRY AND INTACT. PT TOLERATING VENT SETTING WELL. PT IS ON TELE WITH SR ON THE MONITOR. PT NOT C/O ANY SOB, DIFFICULTY BREATHING OR PAIN AT THIS TIME. PT HAS JOANN PICC LINE THAT IS CLEAN, DRY AND INTACT WITH TPN @ 40ML/HR AND NS @ 20ML/HR. BED IN LOW LOCK POSITION WITH RIALS UP X 2. CALL LIGHT WITHIN REACH AND ALL SAFETY MEASURES ENSURED AND CARRIED OUT. WILL CONTINUE TO MONITOR PT.
[2017-09-16] MEDS: PYRIDOXINE HCL 50 MG TABLET GT SCH (21:33)
[2017-09-17] VITALS (10 sets, daily range): BP systolic 120–187; BP diastolic 61–94
[2017-09-17] MEDS: BLOOD SUGAR DIAGNOSTIC 1 EACH STRIP IN SCH ×4 (01:23→17:02)
[2017-09-17] MEDS: INSULIN REGULAR, HUMAN 100 UNIT/ML 3 ML VIAL SQ PRN ×3 (01:24→17:04)
--- NOTE | 2017-09-17 06:11 | NUR ---
RN CLOSING NOTE PT REMAINS IN NO ACUTE DISTRESS IN BED. PT DID NOT HAVE ANY SIGNIFICANT CHANGE IN CONDITION DURING SHIFT. PT TOLERATED VENT SETTING WELL. ALL NEEDS MET, ALL ORDERS CARRIED OUT. WILL ENDORSE CARE TO AM RN FOR CONTINUITY OF CARE.
--- NOTE | 2017-09-17 07:10 | NUR ---
RN INITIAL NOTES: REC'D PT ON BED, NOT IN ANY DISTRESS. HAS TRACH ON MECH VENT, SATING AT 100%. ON TELEMONITOR, SR. HAS PEG PATENT & INTACT, OFF TUBE FEEDING AT THIS TIME. HAS JOANN PICC LINE PATENT & INTACT W/ TPN X 400 CC/HR AND NS X 20 CC/HR BOTH INFUSING WELL, NO S/SX OF INFECTION/INFILTRATION NOTED. PROVIDED COMFORT & SAFETY MEASURES. BED KEPT LOW & IN LOCKED POS. CALL LIGHT PLACED W/IN REACH. REVERSE ISOLATION OBSERVED. WILL CONTINUE TO MONITOR AND ATTEND PT NEEDS. Addendum: 09/17/17 at 1832 by DEA CÁRDENAS RN CORRECTION: TPN 40 CC/HR
[2017-09-17 07:29] LABS: CALCIUM, SERUM 8.5 mg/dL (8.5-10.1); CREATININE 4.6 mg/dL (0.6-1.3); MAGNESIUM 2.1 mg/dL (1.8-2.4); PHOSPHORUS 5.5 mg/dL (2.5-4.9); POTASSIUM 3.6 mmol/L (3.5-5.1)
[2017-09-17] MEDS: LACTOBACILLUS RHAMNOSUS GG 1 EACH CAP.SPRINK GT SCH ×2 (08:58→17:02)
[2017-09-17] MEDS: GABAPENTIN 100 MG CAPSULE GT SCH ×2 (08:58→21:50)
[2017-09-17] MEDS: LEVETIRACETAM SOL (5 ML) 100 MG/ML UDC NG SCH ×2 (08:58→21:50)
[2017-09-17] MEDS: VIT B CMPLX 3/FA/VIT C/BIOTIN 1 TAB TABLET GT SCH (08:58)
[2017-09-17] MEDS: FOLIC ACID 1 MG TABLET GT SCH (08:59)
[2017-09-17] MEDS: LORAZEPAM INJ 2 MG/ML VIAL IV SCH ×2 (08:59→21:50)
[2017-09-17] MEDS: TRAMADOL HCL 50 MG TABLET GT SCH ×2 (08:59→21:50)
[2017-09-17] MEDS: SEVELAMER CARBONATE 0.8 GM POWD.PACK GT SCH ×3 (08:59→21:50)
[2017-09-17] MEDS: Z GUARD REMEDY 2 OZ OINT TP SCH (08:59)
[2017-09-17] MEDS: ZINC SULFATE 220 MG CAPSULE GT SCH (08:59)
[2017-09-17] MEDS: HYDROGEL DRESSING 90 GM TUBE TP SCH (09:00)
[2017-09-17] MEDS: PROSOURCE / PROSTAT (PYXIS) 30 ML UDC GT SCH ×3 (09:00→17:02)
[2017-09-17] MEDS: BACITRACIN/POLYMYXIN B 15 GM TUBE TP SCH (09:03)
[2017-09-17] MEDS ORDERED: TPN BAG #16 IV PRN ×5 (09:30)
[2017-09-17 10:07] LABS: BASOPHILS % (AUTO) 0.3 % (0.0-2.0); EOSINOPHILS # (AUTO) 0.1 /CMM (0.0-0.7); EOSINOPHILS % (AUTO) 1.5 % (0.0-6.0); HEMATOCRIT 22 % (39-51); HEMOGLOBIN 7.2 g/dL (13.5-17.5); LYMPHOCYTES # (AUTO) 0.3 /CMM (0.8-4.8); LYMPHOCYTES % (AUTO) 4.3 % (20.0-44.0); MEAN CORPUSCULAR HEMOGLOBIN 34 PG (26.0-33.0); MEAN CORPUSCULAR HGB CONC 33 g/dl (31.0-36.0); MEAN CORPUSCULAR VOLUME 101 fL (80-96); MONOCYTES # (AUTO) 0.2 /CMM (0.1-1.30); MONOCYTES % (AUTO) 2.2 % (2.0-12.0); NEUTROPHILS # (AUTO) 6.8 /CMM (1.8-8.9); NEUTROPHILS % (AUTO) 91.7 % (43.0-81.0); RDW COEFFICIENT OF VARIATION 23.3 (11.5-15.0); RED BLOOD CELL COUNT(AUTO) 2.14 MIL/uL (4.5-6.0); WHITE BLOOD COUNT (AUTO) 7.5 K/uL (4.3-11.0)
[2017-09-17 10:09] LABS: PLATELET COUNT (AUTO) 27 /CMM (150-450)
[2017-09-17 10:29] LABS: BAND % (MANUAL) 2 % (0.0-5.0); EOSINOPHILS % (MANUAL) 1 % (0-4); LYMPHOCYTES % (MANUAL) 3 % (16-48); MONOCYTES % (MANUAL) 2 % (0-11.0); NEUTROPHILS % (MANUAL) 92 (42-76)
[2017-09-17] MEDS: PANTOPRAZOLE 40 MG VIAL IV SCH (12:33)
[2017-09-17] MEDS: SIMETHICONE SUSP 40 MG/0.6 ML BOTTLE GT SCH ×2 (12:33→17:02)
--- NOTE | 2017-09-17 14:15 | NUR ---
RN NOTES: HD ENDED W/ 2.7 L OUTPUT. 2 UNITS OF PLATELETS GIVEN DURING HD ORDERED. PT TOLERATED WELL.
[2017-09-17] MEDS: TBO-FILGRASTIM 300 MCG/0.5 ML SYRINGE SQ SCH (15:01)
[2017-09-17] MEDS: IV NS 0.9% 500 ML IV PRN (16:01)
--- NOTE | 2017-09-17 18:30 | NUR ---
RN CLOSING NOTES: NO ACUTE CHANGES NOTED W/IN SHIFT. PT TOLERATED CURRENT MECH VENT SETTINGS VIA TRACH. ON TELEMONITOR, STILL SR. PEG KEPT PATENT & INTACT, STILL OFF TUBE FEEDING. JOANN PICC LINE KEPT PATENT & INTACT W/ TPN X 40 CC/HR AND NS X 20 CC/HR BOTH INFUSING WELL, NO S/SX OF INFECTION/INFILTRATION NOTED. KEPT WELL RESTED. SECRETIONS SUCTIONED. BED KEPT LOW & IN LOCKED POS. CALL LIGHT PLACED W/IN REACH. REVERSE ISOLATION OBSERVED. WILL ENDORSE TO PM RN FOR KRYS.
[2017-09-17] MEDS: PYRIDOXINE HCL 50 MG TABLET GT SCH (21:50)
[2017-09-18] VITALS: BP 175/78
[2017-09-18] MEDS: BLOOD SUGAR DIAGNOSTIC 1 EACH STRIP IN SCH ×4 (00:19→17:18)
[2017-09-18] MEDS: hydrALAZINE HCL IV 20 MG VIAL IV PRN (02:59)
[2017-09-18] MEDS: diphenhydrAMINE HCL 50 MG/ML VIAL IV PRN ×2 (03:48→21:49)
[2017-09-18 04:00] VITALS: BP 168/73
[2017-09-18] MEDS: INSULIN REGULAR, HUMAN 100 UNIT/ML 3 ML VIAL SQ PRN ×3 (05:36→17:19)
[2017-09-18 06:44] LABS: BASOPHILS % (AUTO) 0.4 % (0.0-2.0); EOSINOPHILS # (AUTO) 0.1 /CMM (0.0-0.7); EOSINOPHILS % (AUTO) 1.5 % (0.0-6.0); HEMATOCRIT 22 % (39-51); HEMOGLOBIN 7.3 g/dL (13.5-17.5); LYMPHOCYTES # (AUTO) 0.4 /CMM (0.8-4.8); LYMPHOCYTES % (AUTO) 5.9 % (20.0-44.0); MEAN CORPUSCULAR HEMOGLOBIN 35 PG (26.0-33.0); MEAN CORPUSCULAR HGB CONC 34 g/dl (31.0-36.0); MEAN CORPUSCULAR VOLUME 103 fL (80-96); MONOCYTES # (AUTO) 0.2 /CMM (0.1-1.30); MONOCYTES % (AUTO) 3.2 % (2.0-12.0); NEUTROPHILS # (AUTO) 5.6 /CMM (1.8-8.9); RDW COEFFICIENT OF VARIATION 23.1 (11.5-15.0); WHITE BLOOD COUNT (AUTO) 6.3 K/uL (4.3-11.0)
[2017-09-18 07:01] LABS: PLATELET COUNT (AUTO) 33 /CMM (150-450)
[2017-09-18 07:03] LABS: CALCIUM, SERUM 8.5 mg/dL (8.5-10.1); CREATININE 3.8 mg/dL (0.6-1.3); MAGNESIUM 2.1 mg/dL (1.8-2.4); PHOSPHORUS 4.9 mg/dL (2.5-4.9); POTASSIUM 3.9 mmol/L (3.5-5.1)
--- NOTE | 2017-09-18 07:10 | NUR ---
RN INITIAL NOTES: REC'D PT ON BED, NOT IN ANY DISTRESS. HAS TRACH ON MECH VENT, SATING AT 100%. ON TELEMONITOR, SR. HAS PEG PATENT & INTACT, OFF TUBE FEEDING AT THIS TIME. HAS JOANN PICC LINE PATENT & INTACT W/ TPN X 40 CC/HR (BAG #16) AND NS X 20 CC/HR BOTH INFUSING WELL, NO S/SX OF INFECTION/INFILTRATION NOTED. PROVIDED COMFORT & SAFETY MEASURES. BED KEPT LOW & IN LOCKED POS. CALL LIGHT PLACED W/IN REACH. REVERSE ISOLATION OBSERVED. WILL CONTINUE TO MONITOR AND ATTEND PT NEEDS.
[2017-09-18 08:00] VITALS: BP 160/73
[2017-09-18] MEDS: LEVETIRACETAM SOL (5 ML) 100 MG/ML UDC NG SCH ×2 (08:19→21:47)
[2017-09-18] MEDS: FOLIC ACID 1 MG TABLET GT SCH (08:19)
[2017-09-18] MEDS: GABAPENTIN 100 MG CAPSULE GT SCH ×2 (08:19→21:47)
[2017-09-18] MEDS: VIT B CMPLX 3/FA/VIT C/BIOTIN 1 TAB TABLET GT SCH (08:19)
[2017-09-18] MEDS: LACTOBACILLUS RHAMNOSUS GG 1 EACH CAP.SPRINK GT SCH ×2 (08:19→17:18)
[2017-09-18] MEDS: SEVELAMER CARBONATE 0.8 GM POWD.PACK GT SCH ×3 (08:19→21:47)
[2017-09-18] MEDS: ZINC SULFATE 220 MG CAPSULE GT SCH (08:19)
[2017-09-18] MEDS: SIMETHICONE SUSP 40 MG/0.6 ML BOTTLE GT SCH ×2 (08:21→17:18)
[2017-09-18] MEDS: HYDROGEL DRESSING 90 GM TUBE TP SCH (08:22)
[2017-09-18] MEDS: Z GUARD REMEDY 2 OZ OINT TP SCH (08:22)
[2017-09-18] MEDS: PROSOURCE / PROSTAT (PYXIS) 30 ML UDC GT SCH ×3 (08:22→17:18)
[2017-09-18] MEDS: BACITRACIN/POLYMYXIN B 15 GM TUBE TP SCH (08:23)
[2017-09-18] MEDS: TRAMADOL HCL 50 MG TABLET GT SCH ×2 (08:26→21:48)
[2017-09-18] MEDS: LORAZEPAM INJ 2 MG/ML VIAL IV SCH ×2 (08:30→21:48)
[2017-09-18] MEDS ORDERED: TPN BAG #17 IV PRN ×3 (09:30)
--- NOTE | 2017-09-18 09:30 | NUR ---
RN NOTES: PT SEEN & EXAMINED BY DR. DOWNING. MADE HIM AWARE OF PT'S EPISODE OF LABORED BREATHING AND TACHYPNEA. NO NEW ORDERS.
--- NOTE | 2017-09-18 11:27 | NUR ---
RN NOTES: VERIFIED W/ DR. SCHWARTZ IF PT NEEDS BT OF PRBC IF HGB <7.5. TODAY'S HGB IS 7.3 W/ ORDERS NO NEED TO TRANSFUSE AT THIS TIME.
[2017-09-18] MEDS: PANTOPRAZOLE 40 MG VIAL IV SCH (11:53)
[2017-09-18 12:00] VITALS: BP 148/68
[2017-09-18] MEDS: TBO-FILGRASTIM 300 MCG/0.5 ML SYRINGE SQ SCH (14:57)
[2017-09-18 16:00] VITALS: BP 162/72
[2017-09-18 16:04] LABS: BAND % (MANUAL) 11 % (0.0-5.0); EOSINOPHILS % (MANUAL) 3 % (0-4); LYMPHOCYTES % (MANUAL) 3 % (16-48); MONOCYTES % (MANUAL) 4 % (0-11.0); NEUTROPHILS % (MANUAL) 79 (42-76)
[2017-09-18] MEDS: IV NS 0.9% 500 ML IV PRN (17:19)
--- NOTE | 2017-09-18 17:30 | NUR ---
RN NOTES: TPN BAG #17 WAS SCANNED AND VERIFIED W/ CO-NURSE JAMIE PAULSON WELL WITH [facility] PHARMACIST. HOWEVER, TPN INFORMATION/SCANNING WAS NOT REFLECTED IN THE [facility].
--- NOTE | 2017-09-18 19:00 | NUR ---
RN INITIAL NOTES RECEIVED PATIENT IN BED, AWAKE, ABLE TO NOD AND WITH GOOD EYE TRACKING. PATIENT ON MECH VENT VIA TRACH, C/D/I, AIRWAY SUCTIONED NEEDED. SR ON TELE WITH HR OF 77. WITH GT IN PLACE, NO GASTRIC RESIDUAL. GT CLAMPED, ABLE TO USE GTUBE FOR MEDS. WITH R SUBCLAVIAN PERMACATH, DRESSING INTACT. JOANN PICC LINE INTACT AND PATENT. TPN #17 INFUSING ORDERED. NS ORDERED. NEEDS ANTICIPATED AND MET. REPOSITIONED FOR COMFORT. SAFETY ENSURED. REVERSE ISOLATION OBSERVED. WILL MONITOR CLOSELY.
[2017-09-18 20:00] VITALS: BP 151/68
[2017-09-18] MEDS: PYRIDOXINE HCL 50 MG TABLET GT SCH (21:47)
[2017-09-19] VITALS (9 sets, daily range): BP systolic 135–175; BP diastolic 58–75
[2017-09-19] MEDS: BLOOD SUGAR DIAGNOSTIC 1 EACH STRIP IN SCH ×5 (01:10→23:03)
[2017-09-19] MEDS: hydrALAZINE HCL IV 20 MG VIAL IV PRN (01:14)
[2017-09-19] MEDS: INSULIN REGULAR, HUMAN 100 UNIT/ML 3 ML VIAL SQ PRN ×3 (01:20→17:37)
[2017-09-19 06:13] LABS: CALCIUM, SERUM 8.4 mg/dL (8.5-10.1); CREATININE 4.2 mg/dL (0.6-1.3); MAGNESIUM 2.1 mg/dL (1.8-2.4); PHOSPHORUS 5.7 mg/dL (2.5-4.9); POTASSIUM 4.1 mmol/L (3.5-5.1)
[2017-09-19 06:50] LABS: BASOPHILS % (AUTO) 0.6 % (0.0-2.0); EOSINOPHILS # (AUTO) 0.2 /CMM (0.0-0.7); EOSINOPHILS % (AUTO) 2.5 % (0.0-6.0); HEMATOCRIT 21 % (39-51); LYMPHOCYTES # (AUTO) 0.3 /CMM (0.8-4.8); LYMPHOCYTES % (AUTO) 3.8 % (20.0-44.0); MEAN CORPUSCULAR HEMOGLOBIN 35 PG (26.0-33.0); MEAN CORPUSCULAR HGB CONC 33 g/dl (31.0-36.0); MEAN CORPUSCULAR VOLUME 104 fL (80-96); MONOCYTES # (AUTO) 0.4 /CMM (0.1-1.30); MONOCYTES % (AUTO) 5.1 % (2.0-12.0); NEUTROPHILS # (AUTO) 6.9 /CMM (1.8-8.9); RDW COEFFICIENT OF VARIATION 23.4 (11.5-15.0); WHITE BLOOD COUNT (AUTO) 7.9 K/uL (4.3-11.0)
[2017-09-19 06:51] LABS: RED BLOOD CELL COUNT(AUTO) 1.99 MIL/uL (4.5-6.0)
[2017-09-19 06:53] LABS: HEMOGLOBIN 6.9 g/dL (13.5-17.5); PLATELET COUNT (AUTO) 35 /CMM (150-450)
--- NOTE | 2017-09-19 07:01 | NUR ---
RN CLOSING NOTES PATIENT WITH NO DISTRESS. GT CLAMPED. TPN BAG #17 INFUSING ORDERED. IVF ORDERED. JOANN PICC LINE INTACT AND PATENT. AIRWAY SUCTIONED NEEDED. VS MONITORED CLOSELY. TURNED AND REPOSITIONED. WOUND CARE RENDERED. TRACH CARE DONE. SAFETY AND COMFORT ENSURED. ENDORSE ACCORDINGLY FOR CONTINUITY OF CARE.
--- NOTE | 2017-09-19 07:10 | NUR ---
RN INITIAL NOTES: REC'D PT ON BED, NOT IN ANY DISTRESS. HAS TRACH ON MECH VENT, SATING AT 100%. ON TELEMONITOR, SR. HAS PEG PATENT & INTACT, OFF TUBE FEEDING AT THIS TIME. HAS JOANN PICC LINE PATENT & INTACT W/ TPN X 40 CC/HR (BAG #17) AND NS X 20 CC/HR BOTH INFUSING WELL, NO S/SX OF INFECTION/INFILTRATION NOTED. PROVIDED COMFORT & SAFETY MEASURES. BED KEPT LOW & IN LOCKED POS. CALL LIGHT PLACED W/IN REACH. REVERSE ISOLATION OBSERVED. WILL CONTINUE TO MONITOR AND ATTEND PT NEEDS. PT SCHEDULED FOR HD TODAY.
[2017-09-19] MEDS: PROSOURCE / PROSTAT (PYXIS) 30 ML UDC GT SCH ×3 (08:35→17:16)
[2017-09-19] MEDS: VIT B CMPLX 3/FA/VIT C/BIOTIN 1 TAB TABLET GT SCH (08:36)
[2017-09-19] MEDS: LEVETIRACETAM SOL (5 ML) 100 MG/ML UDC NG SCH ×2 (08:36→21:45)
[2017-09-19] MEDS: FOLIC ACID 1 MG TABLET GT SCH (08:36)
[2017-09-19] MEDS: SEVELAMER CARBONATE 0.8 GM POWD.PACK GT SCH ×3 (08:36→21:45)
[2017-09-19] MEDS: LACTOBACILLUS RHAMNOSUS GG 1 EACH CAP.SPRINK GT SCH ×2 (08:36→17:16)
[2017-09-19] MEDS: ZINC SULFATE 220 MG CAPSULE GT SCH (08:36)
[2017-09-19] MEDS: TRAMADOL HCL 50 MG TABLET GT SCH ×2 (08:36→21:46)
[2017-09-19] MEDS: HYDROGEL DRESSING 90 GM TUBE TP SCH (08:37)
[2017-09-19] MEDS: LORAZEPAM INJ 2 MG/ML VIAL IV SCH ×2 (08:37→21:46)
[2017-09-19] MEDS: Z GUARD REMEDY 2 OZ OINT TP SCH (08:37)
[2017-09-19] MEDS: BACITRACIN/POLYMYXIN B 15 GM TUBE TP SCH (08:38)
[2017-09-19] MEDS: SIMETHICONE SUSP 40 MG/0.6 ML BOTTLE GT SCH ×2 (08:38→17:16)
[2017-09-19] MEDS: GABAPENTIN 100 MG CAPSULE GT SCH ×2 (08:42→21:45)
--- NOTE | 2017-09-19 09:00 | NUR ---
RN NOTES: HGB 6.9 MG/DL RELAYED TO DR. KANG, AGREED TO TRANSFUSE 1 UNIT OF PRBC DURING HD.
[2017-09-19 10:09] LABS: BAND % (MANUAL) 3 % (0.0-5.0); EOSINOPHILS % (MANUAL) 2 % (0-4); LYMPHOCYTES % (MANUAL) 8 % (16-48); MONOCYTES % (MANUAL) 5 % (0-11.0); NEUTROPHILS % (MANUAL) 82 (42-76)
[2017-09-19] MEDS: PANTOPRAZOLE 40 MG VIAL IV SCH (11:44)
--- NOTE | 2017-09-19 14:30 | NUR ---
RN NOTES: HD W/2L OUTPUT DONE C/O ELAINE AYALA. 1 UNIT OF PRBC GIVEN TO PT . PT TOLERATED WELL. Addendum: 09/19/17 at 1839 by DEA CÁRDENAS RN ADDENDUM: NO BLOOD TRANSFUSION REACTION NOTED.
[2017-09-19] MEDS ORDERED: TPN BAG #18 IV PRN ×3 (15:00)
[2017-09-19] MEDS: TBO-FILGRASTIM 300 MCG/0.5 ML SYRINGE SQ SCH (16:00)
[2017-09-19] MEDS: IV NS 0.9% 500 ML IV PRN (17:21)
--- NOTE | 2017-09-19 18:26 | NUR ---
RN CLOSING NOTES: NO CHANGES NOTED W/IN SHIFT. PT TOLERATED CURRENT MECH VENT SETTINGS VIA TRACH. ON TELEMONITOR, STILL SR. PEG KEPT PATENT & INTACT. JOANN PICC LINE KEPT PATENT & INTACT W/ TPN X 40 CC/HR AND NS X 20 CC/HR BOTH INFUSING WELL, NO S/SX OF INFECTION/INFILTRATION NOTED.2L REMOVED ON HD AND I UNIT PRBC TRANSFUSED. KEPT WELL RESTED. SECRETIONS SUCTIONED. BED KEPT LOW & IN LOCKED POS. CALL LIGHT PLACED W/IN REACH. REVERSE ISOLATION OBSERVED.
--- NOTE | 2017-09-19 19:50 | NUR ---
FAMILY SERVICES SPECIALIST INITIAL NOTE PT RECEIVED IN NO ACUTE DISTRESS AT THIS TIME. A/O X1 ABLE TO BLINK AND NOD. ON TELE WITH SR. PT HAS PEG. NPO EXCEPT MEDICATIONS AND ON TPN. R SUBCLAVIAN PERMACATH, JOANN PICC LINE THAT ARE CLEAN DRY AND INTACT. COMFORT AND SAFETY MEASURES TO BE ENSURED DURING THE SHIFT. WILL CONTINUE TO MONITOR FOR ANY CHANGES DURING THE SHIFT.
[2017-09-19] MEDS: PYRIDOXINE HCL 50 MG TABLET GT SCH (21:46)
[2017-09-19] MEDS: diphenhydrAMINE HCL 50 MG/ML VIAL IV PRN (23:00)
[2017-09-20] VITALS: BP_SYST 143; BP_DIAS 67; BP_DIAS 98
[2017-09-20 04:00] VITALS: BP 149/73
[2017-09-20] MEDS: BLOOD SUGAR DIAGNOSTIC 1 EACH STRIP IN SCH ×4 (05:13→23:11)
[2017-09-20 07:30] LABS: BASOPHILS % (AUTO) 0.4 % (0.0-2.0); EOSINOPHILS # (AUTO) 0.2 /CMM (0.0-0.7); EOSINOPHILS % (AUTO) 1.8 % (0.0-6.0); HEMATOCRIT 23 % (39-51); HEMOGLOBIN 7.6 g/dL (13.5-17.5); LYMPHOCYTES # (AUTO) 0.4 /CMM (0.8-4.8); LYMPHOCYTES % (AUTO) 4.8 % (20.0-44.0); MEAN CORPUSCULAR HEMOGLOBIN 34 PG (26.0-33.0); MEAN CORPUSCULAR HGB CONC 34 g/dl (31.0-36.0); MEAN CORPUSCULAR VOLUME 102 fL (80-96); MONOCYTES # (AUTO) 0.1 /CMM (0.1-1.30); MONOCYTES % (AUTO) 1.7 % (2.0-12.0); NEUTROPHILS # (AUTO) 7.6 /CMM (1.8-8.9); NEUTROPHILS % (AUTO) 91.3 % (43.0-81.0); RDW COEFFICIENT OF VARIATION 22.5 (11.5-15.0); RED BLOOD CELL COUNT(AUTO) 2.21 MIL/uL (4.5-6.0); WHITE BLOOD COUNT (AUTO) 8.3 K/uL (4.3-11.0)
[2017-09-20 07:34] LABS: PLATELET COUNT (AUTO) 34 /CMM (150-450)
[2017-09-20 07:42] LABS: ALBUMIN 2.4 g/dL (3.4-5.0); BILIRUBIN,TOTAL 2.2 mg/dL (0.2-1.0); CALCIUM, SERUM 8.6 mg/dL (8.5-10.1); CREATININE 4.2 mg/dL (0.6-1.3); MAGNESIUM 2.2 mg/dL (1.8-2.4); POTASSIUM 4.6 mmol/L (3.5-5.1); TOTAL PROTEIN, SERUM 6.8 g/dL (6.4-8.2)
--- NOTE | 2017-09-20 07:49 | NUR ---
REPORT PROGRAMMER NOTE PATIENT IN BED , AWAKE BUT OBTUNDED, VENT SETTINGS ORDERED, O2 SATURATING 100%, NO SIGNS OF DISTRESS, ON TELE MONITOR SR 73, IN DIAPER, R SUBCLAVIAN PERMACATH HD ACCESS, JOANN PICC LINE TPN @ 40 CC/HR AND NS @20CC/HR, TOLERATING WELL, G-TUBE CLAMPED, NPO, BED IN LOW AND LOCKED POSITION, NO SHORTNESS OF BREATH, CALL LIGHT WITHIN REACH, WILL CONTINUE TO MONITOR CLOSELY.
--- NOTE | 2017-09-20 07:55 | NUR ---
WRAPPER SHEETER NOTES LAB CALLED CRITICAL LAB BUN 82 WILL NOTIFY .
[2017-09-20 08:00] VITALS: BP 144/80
--- NOTE | 2017-09-20 08:30 | NUR ---
PYROMETER OPERATOR NOTE SPOKE WITH DR KANG ABOUT PLATELETS TRANSFUSION STATED OK TO DO TOMORROW IN AM AWARE THAT BUN 82 ,WILL HAVE HD TODAY
[2017-09-20] MEDS: ZINC SULFATE 220 MG CAPSULE GT SCH (09:19)
[2017-09-20] MEDS: PROSOURCE / PROSTAT (PYXIS) 30 ML UDC GT SCH ×3 (09:19→16:30)
[2017-09-20] MEDS: SEVELAMER CARBONATE 0.8 GM POWD.PACK GT SCH ×3 (09:19→20:29)
[2017-09-20] MEDS: LEVETIRACETAM SOL (5 ML) 100 MG/ML UDC NG SCH ×2 (09:19→20:30)
[2017-09-20] MEDS: VIT B CMPLX 3/FA/VIT C/BIOTIN 1 TAB TABLET GT SCH (09:20)
[2017-09-20] MEDS: SIMETHICONE SUSP 40 MG/0.6 ML BOTTLE GT SCH ×2 (09:20→16:30)
[2017-09-20] MEDS: FOLIC ACID 1 MG TABLET GT SCH (09:20)
[2017-09-20] MEDS: GABAPENTIN 100 MG CAPSULE GT SCH ×2 (09:20→20:29)
[2017-09-20] MEDS: LACTOBACILLUS RHAMNOSUS GG 1 EACH CAP.SPRINK GT SCH ×2 (09:20→16:30)
[2017-09-20] MEDS: HYDROGEL DRESSING 90 GM TUBE TP SCH (09:21)
[2017-09-20] MEDS: Z GUARD REMEDY 2 OZ OINT TP SCH (09:22)
[2017-09-20] MEDS: BACITRACIN/POLYMYXIN B 15 GM TUBE TP SCH (09:23)
[2017-09-20] MEDS: TRAMADOL HCL 50 MG TABLET GT SCH ×2 (09:24→20:29)
[2017-09-20] MEDS: LORAZEPAM INJ 2 MG/ML VIAL IV SCH ×2 (10:02→20:30)
[2017-09-20 11:11] LABS: BAND % (MANUAL) 2 % (0.0-5.0); LYMPHOCYTES % (MANUAL) 6 % (16-48); NEUTROPHILS % (MANUAL) 84 (42-76)
[2017-09-20 11:12] LABS: EOSINOPHILS % (MANUAL) 3 % (0-4); MONOCYTES % (MANUAL) 5 % (0-11.0)
[2017-09-20] MEDS: PANTOPRAZOLE 40 MG VIAL IV SCH (11:21)
[2017-09-20] MEDS ORDERED: TPN BAG #18 IV PRN ×3 (11:30)
[2017-09-20] MEDS ORDERED: TPN BAG #19 IV PRN ×5 (11:30)
--- NOTE | 2017-09-20 11:35 | NUR ---
GENERAL ROAD PRODUCTION MANAGER NOTES HD STARTED, ORDERED. NO DISTRESS NOTED. WILL CONTINUE TO MONITOR.
[2017-09-20 12:00] VITALS: BP 170/81
--- NOTE | 2017-09-20 13:07 | NUR ---
REGISTERED NURSE MATERNITY NOTE HD COMPETED 2 L OF FLUIDS REMOVED BP154/80
[2017-09-20] MEDS: INSULIN REGULAR, HUMAN 100 UNIT/ML 3 ML VIAL SQ PRN ×2 (13:11→23:14)
--- NOTE | 2017-09-20 15:00 | NUR ---
PAPER STEAMER NOTE ALL NEEDS ATTENDED ,CONT ON VENT SETTING ORDERED , TRACH SUCTION DONE , WILL CONT TO MONITOR CLOSELY
[2017-09-20] MEDS: TBO-FILGRASTIM 300 MCG/0.5 ML SYRINGE SQ SCH (15:39)
[2017-09-20 16:00] VITALS: BP 156/71
[2017-09-20] MEDS: IV NS 0.9% 500 ML IV PRN (16:34)
--- NOTE | 2017-09-20 19:05 | NUR ---
OBIEE REPORT DEVELOPER OPENING NOTES: RECEIVED PT IN BED. PT HAS EYES OPEN BUT OBTUNDED, VENT SETTINGS ORDERED PORTEX 8, AC 16, TV 500, FIO2 40%, PEEP 5. O2 SATURATING AT 100%, NO SIGNS OF DISTRESS, ON TELE MONITOR. PT HAS A DIAPER ON, R SUBCLAVIAN PERMACATH HD ACCESS, JOANN PICC LINE TPN @ 40 CC/HR AND NS @20CC/HR. PT TOLERATING WELL. G-TUBE CLAMPED, NPO EXCEPT MEDS. BED IN LOW AND LOCKED POSITION, NO SHORTNESS OF BREATH. CALL LIGHT WITHIN REACH, WILL CONTINUE TO MONITOR PT.
[2017-09-20 20:00] VITALS: BP 154/79
[2017-09-20] MEDS: PYRIDOXINE HCL 50 MG TABLET GT SCH (21:39)
--- NOTE | 2017-09-20 23:17 | NUR ---
BARREL PLATER NOTES: BLOOD SUGAR WAS 135. NO COVERAGE WAS GIVEN. WILL CONTINUE TO MONITOR PT.
[2017-09-21] VITALS: BP 153/79
[2017-09-21 04:00] VITALS: BP 143/74
[2017-09-21] MEDS: BLOOD SUGAR DIAGNOSTIC 1 EACH STRIP IN SCH ×4 (05:05→23:44)
[2017-09-21] MEDS: INSULIN REGULAR, HUMAN 100 UNIT/ML 3 ML VIAL SQ PRN ×2 (05:10→11:37)
--- NOTE | 2017-09-21 05:11 | NUR ---
BUNDLER SEASONAL GREENERY NOTES: BLOOD SUGAR WAS 153. PER SLIDING SCALE, 6 UNITS OF INSULIN WAS ADMINISTERED. PT ON TPN. WILL CONTINUE TO MONITOR PT.
--- NOTE | 2017-09-21 06:42 | NUR ---
CONSUMER AFFAIRS MANAGER CLOSING NOTES: ALL NEEDS WERE ATTENDED AND ANTICIPATED FOR. PT HAS EYES OPEN BUT REMAINS OBTUNDED. VENT SETTINGS ARE ORDERED: PORTEX 8, AC 16, TV 500, FIO2 40%, PEEP 5. O2 SATURATING AT 100%. NO SIGNS OF DISTRESS, ON TELE MONITOR AND READING SHOWS SR 70S. PT HAS A DIAPER ON AND HAS BEEN ANURIC, R SUBCLAVIAN PERMACATH HD ACCESS, JOANN PICC LINE TPN @ 40 CC/HR AND NS @20CC/HR. PT TOLERATING WELL. G-TUBE CLAMPED, NPO EXCEPT MEDS. BED IN LOW AND LOCKED POSITION, NO SHORTNESS OF BREATH. CALL LIGHT WITHIN REACH. WILL ENDORSE TO AM NURSE FOR KRYS.
[2017-09-21 06:47] LABS: BASOPHILS # (AUTO) 0.1 /CMM (0.0-0.2); BASOPHILS % (AUTO) 0.4 % (0.0-2.0); EOSINOPHILS # (AUTO) 0.3 /CMM (0.0-0.7); EOSINOPHILS % (AUTO) 1.7 % (0.0-6.0); HEMATOCRIT 24 % (39-51); HEMOGLOBIN 8.2 g/dL (13.5-17.5); LYMPHOCYTES # (AUTO) 0.5 /CMM (0.8-4.8); LYMPHOCYTES % (AUTO) 3.7 % (20.0-44.0); MEAN CORPUSCULAR HEMOGLOBIN 35 PG (26.0-33.0); MEAN CORPUSCULAR HGB CONC 33 g/dl (31.0-36.0); MEAN CORPUSCULAR VOLUME 104 fL (80-96); MONOCYTES # (AUTO) 0.3 /CMM (0.1-1.30); MONOCYTES % (AUTO) 1.9 % (2.0-12.0); NEUTROPHILS # (AUTO) 13.6 /CMM (1.8-8.9); NEUTROPHILS % (AUTO) 92.3 % (43.0-81.0); RDW COEFFICIENT OF VARIATION 22.6 (11.5-15.0); RED BLOOD CELL COUNT(AUTO) 2.36 MIL/uL (4.5-6.0); WHITE BLOOD COUNT (AUTO) 14.7 K/uL (4.3-11.0)
[2017-09-21 06:50] LABS: PLATELET COUNT (AUTO) 41 /CMM (150-450)
[2017-09-21 07:02] LABS: ALBUMIN 2.5 g/dL (3.4-5.0); BILIRUBIN,TOTAL 3.1 mg/dL (0.2-1.0); CALCIUM, SERUM 8.8 mg/dL (8.5-10.1); CREATININE 3.9 mg/dL (0.6-1.3); MAGNESIUM 2.1 mg/dL (1.8-2.4); PHOSPHORUS 5.4 mg/dL (2.5-4.9); POTASSIUM 4.4 mmol/L (3.5-5.1); TOTAL PROTEIN, SERUM 7.1 g/dL (6.4-8.2)
[2017-09-21 08:00] VITALS: BP 112/93
--- NOTE | 2017-09-21 08:00 | NUR ---
Tele/RN - AM Assessment Received pt in bed awake, no s/s of pain at this time, no apparent distress, SR on the monitor, plt count and hgb level improved, no transfusion needed at this time, no active bleeding seen. Patient tolerating current vent settings, trach care done as ordered. IVF NS @ 20 ml/hr and TPN @ 40 ml/hr both infusing well on the JOANN PICC line with no s/s of infiltration. Skin assessment done and documented. Wound treatment done as ordered. Pt assisted with turning and repositioning q2h and PRN for comfort and circulation, KCI mattress in place for skin management. Aspiration precautions observed at all times. All needs anticipated and met. Reverse isolation maintained. Will continue with current plan of care.
[2017-09-21] MEDS: LEVETIRACETAM SOL (5 ML) 100 MG/ML UDC NG SCH ×2 (08:22→21:45)
[2017-09-21] MEDS: LACTOBACILLUS RHAMNOSUS GG 1 EACH CAP.SPRINK GT SCH ×2 (08:23→16:33)
[2017-09-21] MEDS: GABAPENTIN 100 MG CAPSULE GT SCH ×2 (08:23→21:45)
[2017-09-21] MEDS: ZINC SULFATE 220 MG CAPSULE GT SCH (08:23)
[2017-09-21] MEDS: FOLIC ACID 1 MG TABLET GT SCH (08:23)
[2017-09-21] MEDS: SEVELAMER CARBONATE 0.8 GM POWD.PACK GT SCH ×3 (08:23→21:45)
[2017-09-21] MEDS: TRAMADOL HCL 50 MG TABLET GT SCH ×2 (08:23→21:45)
[2017-09-21] MEDS: VIT B CMPLX 3/FA/VIT C/BIOTIN 1 TAB TABLET GT SCH (08:23)
[2017-09-21] MEDS: Z GUARD REMEDY 2 OZ OINT TP SCH (08:24)
[2017-09-21] MEDS: HYDROGEL DRESSING 90 GM TUBE TP SCH (08:26)
[2017-09-21] MEDS: BACITRACIN/POLYMYXIN B 15 GM TUBE TP SCH (08:26)
[2017-09-21] MEDS: SIMETHICONE SUSP 40 MG/0.6 ML BOTTLE GT SCH ×2 (08:28→16:34)
[2017-09-21] MEDS: PROSOURCE / PROSTAT (PYXIS) 30 ML UDC GT SCH ×3 (08:28→16:33)
[2017-09-21] MEDS: LORAZEPAM INJ 2 MG/ML VIAL IV SCH ×2 (08:31→21:45)
[2017-09-21 09:52] LABS: BAND % (MANUAL) 20 % (0.0-5.0); EOSINOPHILS % (MANUAL) 1 % (0-4); LYMPHOCYTES % (MANUAL) 3 % (16-48); NEUTROPHILS % (MANUAL) 76 (42-76)
[2017-09-21] MEDS: PANTOPRAZOLE 40 MG VIAL IV SCH (10:51)
[2017-09-21] MEDS ORDERED: TPN BAG #20 IV PRN ×3 (11:30)
[2017-09-21 12:00] VITALS: BP_SYST 153; BP_SYST 161; BP_DIAS 74; BP_DIAS 76
[2017-09-21] MEDS: TBO-FILGRASTIM 300 MCG/0.5 ML SYRINGE SQ SCH (13:42)
[2017-09-21 16:00] VITALS: BP 159/78
[2017-09-21] MEDS: IV NS 0.9% 500 ML IV PRN (16:28)
--- NOTE | 2017-09-21 18:25 | NUR ---
Tele/RN - End Notes No new events seen this shift. TPN infusing well, blood sugar well controlled. All needs attended and met. Will continue with current medical management.
--- NOTE | 2017-09-21 19:51 | NUR ---
SEWER BRICKLAYER INITIAL NOTE PT RECEIVED IN NO ACUTE DISTRESS AT THIS TIME WITH FAMILY AT BEDSIDE. A/O X1 ABLE TO BLINK AND NOD. ON TELE WITH SR. PT HAS PEG. NPO EXCEPT MEDICATIONS AND ON TPN/IVF. R SUBCLAVIAN PERMACATH, JOANN PICC LINE THAT ARE CLEAN DRY AND INTACT RUNNING TPN/IVF TOLERATING WELL. COMFORT AND SAFETY MEASURES TO BE ENSURED DURING THE SHIFT. WILL CONTINUE TO MONITOR FOR ANY CHANGES DURING THE SHIFT.
[2017-09-21 20:00] VITALS: BP 156/91
[2017-09-21] MEDS: PYRIDOXINE HCL 50 MG TABLET GT SCH (21:45)
[2017-09-21] MEDS ORDERED: LORATADINE 10 MG TABLET PO ONE (22:00)
[2017-09-21] MEDS ORDERED: ACETAMINOPHEN 325 MG TABLET PO ONE (22:00)
[2017-09-21] MEDS ORDERED: diphenhydrAMINE HCL 50 MG/ML VIAL IV ONE (22:00)
--- NOTE | 2017-09-21 23:50 | NUR ---
PER GURMEET, PT WILL HAVE PLATELET TRANSFUSION TOMORROW NIGHT IN PREP FOR SURGERY ON THURSDAY
[2017-09-22] VITALS (12 sets, daily range): BP systolic 129–159; BP diastolic 63–90
[2017-09-22] MEDS: BLOOD SUGAR DIAGNOSTIC 1 EACH STRIP IN SCH ×4 (05:17→23:41)
--- NOTE | 2017-09-22 05:40 | NUR ---
HEEL COVER SOFTENER ENDING NOTE PT REMAINS IN NO ACUTE DISTRESS AT THIS TIME. ON TELE WITH SR. ALL DUE MEDICATIONS GIVEN AND TOLERATED. ALL WOUND CARE AND IVF DONE AND TOLERATED. VENT SETTING TOLERATED WITH SUCTIONING NEEDED. COMFORT AND SAFETY MEASURES ENSURED DURING THE SHIFT. HEAD OF BED UP DURING THE SHIFT. WILL ENDORSE CARE TO AM NURSE.
[2017-09-22 06:59] LABS: CALCIUM, SERUM 8.5 mg/dL (8.5-10.1); CREATININE 4.2 mg/dL (0.6-1.3); MAGNESIUM 2.3 mg/dL (1.8-2.4); PHOSPHORUS 6.3 mg/dL (2.5-4.9); POTASSIUM 4.7 mmol/L (3.5-5.1)
[2017-09-22 07:01] LABS: BASOPHILS % (AUTO) 0.1 % (0.0-2.0); EOSINOPHILS # (AUTO) 0.1 /CMM (0.0-0.7); EOSINOPHILS % (AUTO) 1.8 % (0.0-6.0); HEMATOCRIT 22 % (39-51); HEMOGLOBIN 7.7 g/dL (13.5-17.5); LYMPHOCYTES # (AUTO) 0.4 /CMM (0.8-4.8); LYMPHOCYTES % (AUTO) 5.1 % (20.0-44.0); MEAN CORPUSCULAR HEMOGLOBIN 36 PG (26.0-33.0); MEAN CORPUSCULAR HGB CONC 35 g/dl (31.0-36.0); MEAN CORPUSCULAR VOLUME 102 fL (80-96); MONOCYTES # (AUTO) 0.3 /CMM (0.1-1.30); MONOCYTES % (AUTO) 4.3 % (2.0-12.0); NEUTROPHILS # (AUTO) 6.5 /CMM (1.8-8.9); NEUTROPHILS % (AUTO) 88.7 % (43.0-81.0); RDW COEFFICIENT OF VARIATION 20.2 (11.5-15.0); RED BLOOD CELL COUNT(AUTO) 2.17 MIL/uL (4.5-6.0); WHITE BLOOD COUNT (AUTO) 7.3 K/uL (4.3-11.0)
[2017-09-22 07:04] LABS: PLATELET COUNT (AUTO) 28 /CMM (150-450)
--- NOTE | 2017-09-22 07:36 | NUR ---
PERSONAL DRIVER NOTE PATIENT IN BED, OBTUNDED , WITH TELE MONITOR SR 76 , WITH TRACH TO VENT SETTING ORDERED, AMBU BAG AT AT ALL TIME , ON NPO STATUS EXCEPT MEDS , LT UPPER ARM PICC LINE IN PLACE, ON TPN AND IVF ORDERED,ON KCI MATRES FOR SKIN MANAGEMENT, BED IN LOWEST AND LOCKED POSITION , WILL CONT TO MONITOR CLOSELY
[2017-09-22] MEDS: SEVELAMER CARBONATE 0.8 GM POWD.PACK GT SCH ×3 (09:05→22:27)
[2017-09-22] MEDS: LEVETIRACETAM SOL (5 ML) 100 MG/ML UDC NG SCH ×2 (09:05→22:25)
[2017-09-22] MEDS: ZINC SULFATE 220 MG CAPSULE GT SCH (09:05)
[2017-09-22] MEDS: LACTOBACILLUS RHAMNOSUS GG 1 EACH CAP.SPRINK GT SCH ×2 (09:05→16:37)
[2017-09-22] MEDS: FOLIC ACID 1 MG TABLET GT SCH (09:05)
[2017-09-22] MEDS: VIT B CMPLX 3/FA/VIT C/BIOTIN 1 TAB TABLET GT SCH (09:05)
[2017-09-22] MEDS: TRAMADOL HCL 50 MG TABLET GT SCH ×2 (09:05→22:27)
[2017-09-22] MEDS: GABAPENTIN 100 MG CAPSULE GT SCH ×2 (09:05→22:28)
[2017-09-22] MEDS: HYDROGEL DRESSING 90 GM TUBE TP SCH (09:06)
[2017-09-22] MEDS: BACITRACIN/POLYMYXIN B 15 GM TUBE TP SCH (09:07)
[2017-09-22] MEDS: PROSOURCE / PROSTAT (PYXIS) 30 ML UDC GT SCH ×3 (09:08→16:37)
[2017-09-22] MEDS: Z GUARD REMEDY 2 OZ OINT TP SCH (09:08)
[2017-09-22] MEDS: SIMETHICONE SUSP 40 MG/0.6 ML BOTTLE GT SCH ×2 (09:10→16:37)
--- NOTE | 2017-09-22 09:25 | NUR ---
WAREHOUSE ASSOCIATE NOTE HD STARTED ORDERED
[2017-09-22] MEDS: LORAZEPAM INJ 2 MG/ML VIAL IV SCH ×2 (09:37→22:28)
--- NOTE | 2017-09-22 10:25 | NUR ---
PHOTOGRAPHIC ENGINEER NOTE HD COMPLETED, 2 L OF FLUIDS OUT ,BP 131/78 ,WILL CONT TO MONITOR CLOSELY
[2017-09-22] MEDS: PANTOPRAZOLE 40 MG VIAL IV SCH (10:50)
[2017-09-22 11:06] LABS: EOSINOPHILS % (MANUAL) 3 % (0-4); LYMPHOCYTES % (MANUAL) 6 % (16-48); MONOCYTES % (MANUAL) 4 % (0-11.0); NEUTROPHILS % (MANUAL) 87 (42-76)
--- NOTE | 2017-09-22 13:00 | NUR ---
LOCAL SALES ASSOCIATE NOTE NOTED WAS VOMITING WITH YELLOW COLOR VOMITUS KEEP CLEAN DRY DR VELA NOTIFIED WITH ORDER ZOFRAN 10 MG Q6 IV HOUR ,ORDER CARRIED OUT
[2017-09-22] MEDS ORDERED: ONDANSETRON HCL/PF 4 MG/2 ML VIAL IV PRN (14:00)
[2017-09-22] MEDS ORDERED: ONDANSETRON HCL/PF 8 MG in IV D5W 50 ML IVP PRN (14:00)
--- NOTE | 2017-09-22 14:00 | NUR ---
GENERAL PRODUCTION LABORER NOTE SPOKE WITH DR VLEA NOTIFIED THAT PLATELETS 29 ,ALSO SPOKE WITH DR FISHER OK TO DO PLATELETS 1 UNITS EARLIER THEN 1800 ,ALSO PREMEDICATE ORDERED EARLIER WITH BENADRYL TYLENOL AND CLARITIN, ORDER CARRIED OUT
[2017-09-22] MEDS ORDERED: LORATADINE 10 MG TABLET PO ONE (14:30)
[2017-09-22] MEDS ORDERED: diphenhydrAMINE HCL 50 MG/ML VIAL IV ONE ×3 (14:30→20:00)
[2017-09-22] MEDS ORDERED: ACETAMINOPHEN 650 MG/20.3 ML UDC NG ONE (14:30)
--- NOTE | 2017-09-22 14:30 | NUR ---
MANAGER BUILDING NOTE ERIBERTO RN CHIEF BUILDING INSPECTOR SEEN PATIENT AWARE THAT WENDY WAS VOMITING, STILL WITH ABDOMINAL DISTENTION PLATELETS 29 WITH ORDER CHEST X RAY
--- NOTE | 2017-09-22 14:55 | NUR ---
SEA AIR LAND OFFICER NOTE CHEST X RAY DONE , WILL DO CMP AFTER PLATELETS TRANSFUSED
[2017-09-22] MEDS: CLONIDINE HCL 0.1MG/24H PTWK 1 EA PATCH TD SCH (15:27)
[2017-09-22] MEDS ORDERED: TPN BAG #21 IV SCH ×7 (16:00)
[2017-09-22] MEDS: INSULIN REGULAR, HUMAN 100 UNIT/ML 3 ML VIAL SQ PRN ×2 (16:41→23:47)
--- NOTE | 2017-09-22 17:18 | NUR ---
SEARCHLIGHT OPERATOR NOTE I UNIT PLATELETS COMPLETED ,NO ADVERSE REACTION NOTED , BLOO9D SUGAR 1548 MG\ DL ,NO COVERAGE ORDERED ,CONT TPN ORDERED
[2017-09-22] MEDS: IV NS 0.9% 500 ML IV PRN (17:22)
[2017-09-22] MEDS ORDERED: ACETAMINOPHEN 650 MG/20.3 ML UDC GT ONE ×2 (18:00→20:00)
[2017-09-22] MEDS ORDERED: LORATADINE 10 MG TABLET GT ONE (18:00)
[2017-09-22 18:42] LABS: ALBUMIN 2.5 g/dL (3.4-5.0); BILIRUBIN,TOTAL 2.3 mg/dL (0.2-1.0); CALCIUM, SERUM 8.6 mg/dL (8.5-10.1); CREATININE 3.5 mg/dL (0.6-1.3); POTASSIUM 4.3 mmol/L (3.5-5.1); TOTAL PROTEIN, SERUM 6.8 g/dL (6.4-8.2)
[2017-09-22 18:57] LABS: INR 1.31 (0.87-1.13); PROTHROMBIN TIME 13.7 SECS (9.5-12.7)
--- NOTE | 2017-09-22 18:57 | NUR ---
HOSE WRAPPER NOTE SEEN BY DR TURNER NOTIFIED THAT PLATELETS COUNT 29, I INIT PLATELETS WAS TRANSFUSED , STATED RECHECK PLATELETSAT 1900 IF LESS THEN 50 TRANSFUSE 1 INIT PLATELETS AND CALL HER ALSO RECHECK PLATELET IN AM IF LESS THEN [address] LEVI ,ORDER CARRIED OUT
--- NOTE | 2017-09-22 19:00 | NUR ---
RETAINING ROOM CUTTER NOTE PER DR TURNER PREMEDICATE PRIOR PLATELETS TRANSFUSION WITH BENADRYL AND TYLENOL
[2017-09-22 19:22] LABS: NEUTROPHILS % (MANUAL) 85 (42-76)
[2017-09-22 19:23] LABS: BAND % (MANUAL) 3 % (0.0-5.0); EOSINOPHILS % (MANUAL) 1 % (0-4); LYMPHOCYTES % (MANUAL) 6 % (16-48); MONOCYTES % (MANUAL) 5 % (0-11.0)
--- NOTE | 2017-09-22 19:45 | NUR ---
RN OPENING NOTES RECEIVED REPORT FROM JG RN. FOUND Pt RESTING IN BED. NO S/S OF ACUTE DISTRESS OR SOB NOTED. Pt IS A/OX1, NON-VERBAL, OPENS EYES, CROATIAN SPEAKING. ON VENT/TRACH. VENT SETTINGS: AC 16, TV 500, FIO2 40%, PEEP 5 WITH PORTEX #8. Pt IS NPO EXCEPT MEDS, DUE TO GTUBE MALFUNCTION. IV ON JOANN PICC, IVF TPN @42ML/HR & NS @20ML/HR, INFUSING WELL. SAFETY MEASURES IN PLACE. BED LOW, LOCKED, HOB ELEVATED, & SIDE RAILS UP. WILL CONTINUE TO MONITOR Pt THROUGHOUT THE NIGHT FOR SAFETY.
--- NOTE | 2017-09-22 20:00 | NUR ---
RN NOTES RECEIVED CALL FROM LAB PLATELET LEVEL AT 34. ACCORDING TO JG AYALA, DR. TURNER ORDERED THAT IF PLATELET IS <50, THEN TO TRANSFUSE 1UN OF PLATELET. PLACED ORDER FOR 1UN OF PLATELET.
[2017-09-22] MEDS ORDERED: LORATADINE 10 MG TABLET GT SCH (22:00)
[2017-09-22] MEDS ORDERED: diphenhydrAMINE HCL 50 MG/ML VIAL IV SCH (22:00)
[2017-09-22] MEDS ORDERED: ACETAMINOPHEN 650 MG/20.3 ML UDC GT SCH (22:00)
[2017-09-22] MEDS: PYRIDOXINE HCL 50 MG TABLET GT SCH (22:33)
[2017-09-23] VITALS (12 sets, daily range): BP systolic 116–195; BP diastolic 58–85
--- NOTE | 2017-09-23 | NUR ---
MIDNIGHT BG CHECK: 178. ADMINISTERED 6UN OF INSULIN PER SLIDING SCALE. Pt ON TPN @42ML/HR.
--- NOTE | 2017-09-23 00:30 | NUR ---
RN NOTES CALLED LAB TO SEE IF PLATELETS WERE READY FOR PICKUP YET. LAB SAID IT WAS NOT AVAILABLE YET BECAUSE THEY HAD TO ORDER FROM [facility] AND ARE STILL WAITING FOR DELIVERY. THEY SAID EXPECTED DELIVERY TIME COULD BE ANYWHERE BETWEEN 3-4AM. SAID THEY WILL CALL THE FLOOR TO INFORM WHEN THE PLATELETS ARE READY FOR PICKUP.
--- NOTE | 2017-09-23 06:00 | NUR ---
AC BG 153. 6UN OF INSULIN COVERAGE GIVEN. ON CONTINUOUS TPN.
[2017-09-23] MEDS: INSULIN REGULAR, HUMAN 100 UNIT/ML 3 ML VIAL SQ PRN ×3 (06:42→18:29)
[2017-09-23] MEDS: BLOOD SUGAR DIAGNOSTIC 1 EACH STRIP IN SCH ×3 (06:46→18:29)
--- NOTE | 2017-09-23 07:00 | NUR ---
RN CLOSING NOTES NO SIGNIFICANT CHANGES IN Pt's CONDITION. NO S/S OF ACUTE DISTRESS OR SOB NOTED DURING THE NIGHT. ON TELE SR. ALL NEEDS MET AND ATTENDED TO. SAFETY MEASURES IN PLACE. WILL ENDORSE TO DAYSHIFT RN FOR Pt's KRYS.
[2017-09-23 07:05] LABS: BASOPHILS % (AUTO) 0.8 % (0.0-2.0); EOSINOPHILS # (AUTO) 0.1 /CMM (0.0-0.7); EOSINOPHILS % (AUTO) 2.9 % (0.0-6.0); LYMPHOCYTES # (AUTO) 0.3 /CMM (0.8-4.8); LYMPHOCYTES % (AUTO) 8.2 % (20.0-44.0); MEAN CORPUSCULAR HEMOGLOBIN 36 PG (26.0-33.0); MEAN CORPUSCULAR HGB CONC 35 g/dl (31.0-36.0); MEAN CORPUSCULAR VOLUME 103 fL (80-96); MONOCYTES # (AUTO) 0.3 /CMM (0.1-1.30); MONOCYTES % (AUTO) 7.3 % (2.0-12.0); NEUTROPHILS # (AUTO) 2.9 /CMM (1.8-8.9); NEUTROPHILS % (AUTO) 80.8 % (43.0-81.0); RDW COEFFICIENT OF VARIATION 21.4 (11.5-15.0); WHITE BLOOD COUNT (AUTO) 3.6 K/uL (4.3-11.0)
[2017-09-23 07:08] LABS: RED BLOOD CELL COUNT(AUTO) 1.85 MIL/uL (4.5-6.0)
[2017-09-23 07:26] LABS: CALCIUM, SERUM 8.3 mg/dL (8.5-10.1); CREATININE 3.6 mg/dL (0.6-1.3); MAGNESIUM 2.2 mg/dL (1.8-2.4); PHOSPHORUS 5.2 mg/dL (2.5-4.9); POTASSIUM 4.1 mmol/L (3.5-5.1)
--- NOTE | 2017-09-23 07:30 | NUR ---
RN NOTES CALLED BLOOD BANK. STILL WAITING ON PLATELET DELIVERY FROM [facility].
[2017-09-23 07:31] LABS: HEMOGLOBIN 6.7 g/dL (13.5-17.5)
[2017-09-23 07:32] LABS: HEMATOCRIT 19 % (39-51); PLATELET COUNT (AUTO) 34 /CMM (150-450)
[2017-09-23 07:52] LABS: BAND % (MANUAL) 3 % (0.0-5.0); EOSINOPHILS % (MANUAL) 4 % (0-4); LYMPHOCYTES % (MANUAL) 10 % (16-48); MONOCYTES % (MANUAL) 7 % (0-11.0); NEUTROPHILS % (MANUAL) 76 (42-76)
--- NOTE | 2017-09-23 10:00 | NUR ---
RN NOTE; FAMILY ( DAUGHTER AND ) AT THE BED SIDE , DR VELA AND DAUGHTER TALKED RE; TREATMENT , PROGNOSIS AND CODE STATUS EITHER TO CHANGE TO DNR OR HOSPICE . AWAITING DECISION FROM FAMILY
[2017-09-23] MEDS: LORAZEPAM INJ 2 MG/ML VIAL IV SCH ×2 (10:16→21:35)
[2017-09-23] MEDS: LACTOBACILLUS RHAMNOSUS GG 1 EACH CAP.SPRINK GT SCH ×2 (10:40→18:15)
[2017-09-23] MEDS: FOLIC ACID 1 MG TABLET GT SCH (10:40)
[2017-09-23] MEDS: VIT B CMPLX 3/FA/VIT C/BIOTIN 1 TAB TABLET GT SCH (10:41)
[2017-09-23] MEDS: PROSOURCE / PROSTAT (PYXIS) 30 ML UDC GT SCH ×3 (10:41→18:15)
[2017-09-23] MEDS: LEVETIRACETAM SOL (5 ML) 100 MG/ML UDC NG SCH ×2 (10:41→21:29)
[2017-09-23] MEDS: TRAMADOL HCL 50 MG TABLET GT SCH ×2 (10:41→21:30)
[2017-09-23] MEDS: ZINC SULFATE 220 MG CAPSULE GT SCH (10:41)
[2017-09-23] MEDS: SEVELAMER CARBONATE 0.8 GM POWD.PACK GT SCH ×3 (10:41→21:29)
[2017-09-23] MEDS: GABAPENTIN 100 MG CAPSULE GT SCH ×2 (10:41→21:29)
[2017-09-23] MEDS: HYDROGEL DRESSING 90 GM TUBE TP SCH (10:42)
[2017-09-23] MEDS: SIMETHICONE SUSP 40 MG/0.6 ML BOTTLE GT SCH ×2 (10:43→18:16)
[2017-09-23] MEDS: Z GUARD REMEDY 2 OZ OINT TP SCH (10:43)
[2017-09-23] MEDS: BACITRACIN/POLYMYXIN B 15 GM TUBE TP SCH (10:59)
--- NOTE | 2017-09-23 11:00 | NUR ---
RN NOTE; PER DR VITALY VELA ; OK TO TRANSFUSE PRBC ONE UNIT BUT DO NOT TRANSFUSE PLATELET DUE TO PATIENT NOT GOING FOR ANY SURGERY AT THIS TIME . SO D/Cd THE PLATELET ORDER AT THIS TIME.
--- NOTE | 2017-09-23 11:46 | NUR ---
ONE UNIT OF PRBC TRANSFUSION STARTED ,V/S WNL . TPN AND IV FLUID HOLD AT THIS TIME UNTIL TRANSFUSION DONE . ROSE MARIE FROM PHARMACY NOTIFIED.
[2017-09-23] MEDS: PANTOPRAZOLE 40 MG VIAL IV SCH (12:14)
[2017-09-23] MEDS ORDERED: TPN BAG #22 IV SCH ×5 (14:00)
[2017-09-23] MEDS: hydrALAZINE HCL IV 20 MG VIAL IV PRN (14:06)
[2017-09-23] MEDS ORDERED: TPN BAG #22 IV PRN ×6 (14:30)
[2017-09-23] MEDS: LORAZEPAM INJ 2 MG/ML VIAL IV PRN (14:32)
[2017-09-23 14:57] LABS: ABG BASE EXCESS -3.3 mmol/L; ABG OXYGEN SATURATION 92.8 % (92.0-98.5); ABG PO2 75.6 mmHg (75.0-100.0); AaDO2 148.7 mmHg; MetHb 0.6 % (0.0-1.5); O2Hb 91.3 % (94.0-97.0); PEEP,BG 5 cm H2O; SITE, ABG Right Radial; VT, ABG 500 mL
[2017-09-23] MEDS ORDERED: NITROGLYCERIN PACKET 1 GM PACKET TOP PRN (15:00)
[2017-09-23] MEDS ORDERED: METOPROLOL TARTRATE INJ 5 MG/5 ML AMPUL IVP ONE (15:00)
--- NOTE | 2017-09-23 15:05 | NUR ---
RN NOTE; PRBC TRANSFUSION COMPLETE , NOTED WITH ELEVATED BLOOD PRESSURE , PRN HYDRALAZINE 10 MG IV GIVEN , WILL RESUME TPN .
--- NOTE | 2017-09-23 16:00 | NUR ---
RN NOTE; PATIENT BP INCREASED TO 166/87 MM OF HG WHILE AT THE END OF TRANSFUSION , PRN HYDRALAZINE 10 MG IV GIVEN PRESCRIBED , PT WAS RESTLESS , PRN ATIVAN 2 MG IV GIVEN . POST HYDRALAZINE AND ATIVAN , PT BP AND HR INCREASED TO 195/77 AND HR 162 , SINUS TACHY IN TELE MONITOR . PT WITH RESP. DISTRESS ,LABORED BREATHING BUT SATING 100% , DIAPHORETIC, BLOOD SUGAR 192 MG/DL , ALTERED LEVEL OF CONSCIOUSNESS , PATIENT ALMOST AT THE END OF PRBC TRANSFUSION , TPN HELD UNTIL TRANSFUSION , GETTING HEMODIALYSIS EVERY OTHER DAY , WAS DIALYZE ON 09/22 , PT WITH 4+ GENERALIZED EDEMA , G TUBE ONLY FOR MEDS , ABDOMINAL DISTENDED . MD AWARE . RAPID RESPONSE WAS CALLED , STAT CXR , EKG , ABG DONE , DR CALABRESE ORDERED PRN NITRO OINT FOR SBP> 170 , RECHECKED BP, NOTED 171/81 ,PER DR VELA PRN METOPROLOL 5 MG IV GIVEN . PATIENT HR DECREASED TO 120 's , BP DECREASED TO 120/87 , PATIENT RESPIRATION UNLABORED , SATING 100% , TIDAL VOLUME INCREASED TO 550 . WILL CONTINUE TO MONITOR . PATIENT IS CHANGED TO ARTIS STATUS FOR THE HIGHER LEVEL OF CARE.
--- NOTE | 2017-09-23 16:05 | NUR ---
RN NOTE; REASSESSMENT ; BP 120/87 MM OF HG , HR -105 , PATIENT ASLEEP WITHOUT ANY DISTRESS .
--- NOTE | 2017-09-23 17:23 | NUR ---
RN NOTE; PATIENT RESPIRATION IS UNLABORED , PT IS RELAXED , HR IS 98 AT THIS TIME . WILL CONTINUE TO MONITOR .
[2017-09-23] MEDS: PYRIDOXINE HCL 50 MG TABLET GT SCH (21:29)
[2017-09-24] VITALS: BP 130/72
[2017-09-24] MEDS: BLOOD SUGAR DIAGNOSTIC 1 EACH STRIP IN SCH ×5 (00:41→23:47)
[2017-09-24] MEDS: INSULIN REGULAR, HUMAN 100 UNIT/ML 3 ML VIAL SQ PRN ×5 (00:42→23:42)
[2017-09-24 04:00] VITALS: BP 140/62
--- NOTE | 2017-09-24 07:26 | NUR ---
RN NOTES RECEIVED PT FROM FOREIGN STUDENT ADVISER TEACHER IN STABLE CONDITION, CHRONIC VENT TRACH, TOLERATING VENT SETTINGS NO SOB OR DISTRESS NOTED. A&0X1 ABLE TO NOD TO QUESTIONS. SR ON THE TELE MONITOR HR 74. TPN CURRENTLY RUNNING THROUGH JOANN PICC LINE @ 42ML/HR. DRESSING DRY AND INTACT. BED LOCKED AND IN LOWEST POSITION, CALL LIGHT WITHIN REACH, SIDE RAILS UPX3, WILL CONT TO MONITOR.
[2017-09-24 07:48] LABS: BASOPHILS % (AUTO) 0.8 % (0.0-2.0); EOSINOPHILS # (AUTO) 0.1 /CMM (0.0-0.7); EOSINOPHILS % (AUTO) 1.7 % (0.0-6.0); HEMATOCRIT 21 % (39-51); LYMPHOCYTES # (AUTO) 0.3 /CMM (0.8-4.8); LYMPHOCYTES % (AUTO) 6.6 % (20.0-44.0); MEAN CORPUSCULAR HEMOGLOBIN 34 PG (26.0-33.0); MEAN CORPUSCULAR HGB CONC 34 g/dl (31.0-36.0); MEAN CORPUSCULAR VOLUME 101 fL (80-96); MONOCYTES # (AUTO) 0.2 /CMM (0.1-1.30); MONOCYTES % (AUTO) 5.5 % (2.0-12.0); NEUTROPHILS # (AUTO) 3.3 /CMM (1.8-8.9); NEUTROPHILS % (AUTO) 85.4 % (43.0-81.0); RDW COEFFICIENT OF VARIATION 22.3 (11.5-15.0); RED BLOOD CELL COUNT(AUTO) 2.05 MIL/uL (4.5-6.0); WHITE BLOOD COUNT (AUTO) 3.8 K/uL (4.3-11.0)
[2017-09-24 08:00] VITALS: BP 152/73
[2017-09-24 08:03] LABS: PLATELET COUNT (AUTO) 29 /CMM (150-450)
[2017-09-24 08:29] LABS: CALCIUM, SERUM 8.5 mg/dL (8.5-10.1); CREATININE 4.3 mg/dL (0.6-1.3); MAGNESIUM 2.2 mg/dL (1.8-2.4); PHOSPHORUS 5.3 mg/dL (2.5-4.9)
[2017-09-24] MEDS: FOLIC ACID 1 MG TABLET GT SCH (08:43)
[2017-09-24] MEDS: GABAPENTIN 100 MG CAPSULE GT SCH ×2 (08:43→20:12)
[2017-09-24] MEDS: LEVETIRACETAM SOL (5 ML) 100 MG/ML UDC NG SCH ×2 (08:44→20:13)
[2017-09-24] MEDS: VIT B CMPLX 3/FA/VIT C/BIOTIN 1 TAB TABLET GT SCH (08:44)
[2017-09-24] MEDS: ZINC SULFATE 220 MG CAPSULE GT SCH (08:44)
[2017-09-24] MEDS: TRAMADOL HCL 50 MG TABLET GT SCH ×2 (08:44→20:13)
[2017-09-24] MEDS: LACTOBACILLUS RHAMNOSUS GG 1 EACH CAP.SPRINK GT SCH ×2 (08:44→16:29)
[2017-09-24] MEDS: HYDROGEL DRESSING 90 GM TUBE TP SCH (08:45)
[2017-09-24] MEDS: Z GUARD REMEDY 2 OZ OINT TP SCH (08:45)
[2017-09-24] MEDS: PROSOURCE / PROSTAT (PYXIS) 30 ML UDC GT SCH ×3 (08:45→16:29)
[2017-09-24] MEDS: SEVELAMER CARBONATE 0.8 GM POWD.PACK GT SCH ×3 (08:45→20:12)
[2017-09-24 08:59] LABS: EOSINOPHILS % (MANUAL) 3 % (0-4); LYMPHOCYTES % (MANUAL) 9 % (16-48); MONOCYTES % (MANUAL) 8 % (0-11.0); NEUTROPHILS % (MANUAL) 80 (42-76)
--- NOTE | 2017-09-24 09:00 | NUR ---
RN NOTES DR VELA MADE AWARE OF PLT 29 HBG 7.0., NO NEW ORDERS, PER MD AWAITING DECISION FROM DAUGHTER JAQUELIN POSSIBLE COMFORT OR HOSPICE CARE.
[2017-09-24] MEDS: SIMETHICONE SUSP 40 MG/0.6 ML BOTTLE GT SCH ×2 (09:45→16:29)
[2017-09-24] MEDS: LORAZEPAM INJ 2 MG/ML VIAL IV SCH ×2 (09:45→20:37)
[2017-09-24] MEDS: BACITRACIN/POLYMYXIN B 15 GM TUBE TP SCH (09:45)
[2017-09-24] MEDS: PANTOPRAZOLE 40 MG VIAL IV SCH (11:23)
[2017-09-24 12:00] VITALS: BP 135/69
[2017-09-24] MEDS ORDERED: TPN BAG #23 IV SCH ×16 (12:00)
[2017-09-24 16:00] VITALS: BP 155/71
[2017-09-24] MEDS: ACETYLCYSTEINE 10% SOLN 400 MG/4 ML VIAL NEB SCH ×2 (16:02→23:23)
--- NOTE | 2017-09-24 18:21 | NUR ---
RN NOTES PT REMAINED IN STABLE CONDITION THROUGHOUT THE SHIFT, TOLERATING VENT SETTINGS NO DISTRESS NOTED. PT CLEANED/TURNED/REPOSITIONED/SUCTIONED. NO SIGNIFICANT CHANGES. SIDE RAILS UPX3, BED LOCKED AND IN LOWEST POSITION, WILL ENDORSE TO ONCOMING SHIFT.
[2017-09-24 20:00] VITALS: BP 179/76
--- NOTE | 2017-09-24 20:00 | NUR ---
RN INITIAL NOTE RECEIVED PT IN NO ACUTE DISTRESS IN BED. PT IS ON MECHANICAL VENT VIA TRACH. TRACH SITE IS CLEAN DRY AND INTACT. PT TOLERATING VENT SETTING WELL. PT IS ON TELE WITH SR ON THE MONITOR. PT HAS NO SOB, DIFFICULTY BREATHING OR PAIN AT THIS TIME. PT HAS JOANN PICC LINE THAT IS CLEAN, DRY AND INTACT WITH TPN @ 42ML/HR. BED IN LOW LOCK POSITION WITH RIALS UP X 2. CALL LIGHT WITHIN REACH AND ALL SAFETY MEASURES ENSURED AND CARRIED OUT. WILL CONTINUE TO MONITOR PT.
[2017-09-24] MEDS: hydrALAZINE HCL IV 20 MG VIAL IV PRN (20:35)
--- NOTE | 2017-09-24 20:35 | NUR ---
RN NOTES PT B/P 179/76 HYDRALAZINE GIVEN.
[2017-09-24] MEDS: PYRIDOXINE HCL 50 MG TABLET GT SCH (21:40)
[2017-09-25] VITALS: BP 151/72
--- NOTE | 2017-09-25 | NUR ---
RN NOTES PT BS 184 6UNITES OF INSULIN GIVEN PER SLIDING SCALE.
[2017-09-25 04:00] VITALS: BP 163/76
[2017-09-25] MEDS: hydrALAZINE HCL IV 20 MG VIAL IV PRN (04:08)
[2017-09-25] MEDS: INSULIN REGULAR, HUMAN 100 UNIT/ML 3 ML VIAL SQ PRN ×2 (06:46→22:57)
[2017-09-25] MEDS: BLOOD SUGAR DIAGNOSTIC 1 EACH STRIP IN SCH ×4 (06:47→22:54)
--- NOTE | 2017-09-25 07:30 | NUR ---
DAIRY PROCESSING SUPERVISOR NOTE RECEIVED PATIENT IN BED, AWAKE. NO S/S OF DISTESS NOTED, UPDATED BOARD. SIDE RAILS UP X 2, CALL LIGHT WITHIN REACH
[2017-09-25 07:31] LABS: BASOPHILS % (AUTO) 0.5 % (0.0-2.0); EOSINOPHILS # (AUTO) 0.1 /CMM (0.0-0.7); EOSINOPHILS % (AUTO) 2.6 % (0.0-6.0); HEMATOCRIT 22 % (39-51); HEMOGLOBIN 7.7 g/dL (13.5-17.5); LYMPHOCYTES # (AUTO) 0.2 /CMM (0.8-4.8); LYMPHOCYTES % (AUTO) 6.9 % (20.0-44.0); MEAN CORPUSCULAR HEMOGLOBIN 36 PG (26.0-33.0); MEAN CORPUSCULAR HGB CONC 35 g/dl (31.0-36.0); MEAN CORPUSCULAR VOLUME 102 fL (80-96); MONOCYTES # (AUTO) 0.1 /CMM (0.1-1.30); MONOCYTES % (AUTO) 3.4 % (2.0-12.0); NEUTROPHILS # (AUTO) 2.8 /CMM (1.8-8.9); NEUTROPHILS % (AUTO) 86.6 % (43.0-81.0); RDW COEFFICIENT OF VARIATION 21.6 (11.5-15.0); RED BLOOD CELL COUNT(AUTO) 2.18 MIL/uL (4.5-6.0); WHITE BLOOD COUNT (AUTO) 3.2 K/uL (4.3-11.0)
[2017-09-25 07:46] LABS: CALCIUM, SERUM 8.6 mg/dL (8.5-10.1); CREATININE 4.1 mg/dL (0.6-1.3); MAGNESIUM 2.2 mg/dL (1.8-2.4); PHOSPHORUS 5.1 mg/dL (2.5-4.9); POTASSIUM 3.8 mmol/L (3.5-5.1)
[2017-09-25 08:00] VITALS: BP 145/82
[2017-09-25 08:04] LABS: PLATELET COUNT (AUTO) 28 /CMM (150-450)
[2017-09-25] MEDS: FOLIC ACID 1 MG TABLET GT SCH (08:11)
[2017-09-25] MEDS: GABAPENTIN 100 MG CAPSULE GT SCH ×2 (08:11→21:50)
[2017-09-25] MEDS: ACETYLCYSTEINE 10% SOLN 400 MG/4 ML VIAL NEB SCH ×4 (08:11→23:23)
[2017-09-25] MEDS: LEVETIRACETAM SOL (5 ML) 100 MG/ML UDC NG SCH ×2 (08:11→21:49)
[2017-09-25] MEDS: ACETAMINOPHEN 650 MG/20.3 ML UDC GT PRN (08:11)
[2017-09-25] MEDS: LORAZEPAM INJ 2 MG/ML VIAL IV SCH ×2 (08:22→21:50)
[2017-09-25] MEDS: HYDROGEL DRESSING 90 GM TUBE TP SCH (08:26)
[2017-09-25] MEDS: BACITRACIN/POLYMYXIN B 15 GM TUBE TP SCH (08:26)
[2017-09-25] MEDS: PROSOURCE / PROSTAT (PYXIS) 30 ML UDC GT SCH ×3 (08:26→17:28)
[2017-09-25] MEDS: Z GUARD REMEDY 2 OZ OINT TP SCH (08:26)
[2017-09-25] MEDS: SEVELAMER CARBONATE 0.8 GM POWD.PACK GT SCH ×3 (08:26→21:49)
[2017-09-25] MEDS: ZINC SULFATE 220 MG CAPSULE GT SCH (08:26)
[2017-09-25] MEDS: TRAMADOL HCL 50 MG TABLET GT SCH ×2 (08:27→21:50)
[2017-09-25] MEDS: VIT B CMPLX 3/FA/VIT C/BIOTIN 1 TAB TABLET GT SCH (08:29)
[2017-09-25] MEDS: LACTOBACILLUS RHAMNOSUS GG 1 EACH CAP.SPRINK GT SCH ×2 (08:29→17:28)
[2017-09-25] MEDS: SIMETHICONE SUSP 40 MG/0.6 ML BOTTLE GT SCH ×2 (08:29→17:28)
[2017-09-25 09:44] LABS: BAND % (MANUAL) 1 % (0.0-5.0); EOSINOPHILS % (MANUAL) 1 % (0-4); LYMPHOCYTES % (MANUAL) 8 % (16-48); MONOCYTES % (MANUAL) 5 % (0-11.0); NEUTROPHILS % (MANUAL) 85 (42-76)
[2017-09-25] MEDS: PANTOPRAZOLE 40 MG VIAL IV SCH (10:56)
[2017-09-25] MEDS ORDERED: TPN BAG #24 IV PRN ×7 (11:30)
[2017-09-25 12:00] VITALS: BP 162/78
[2017-09-25 16:00] VITALS: BP 145/64
--- NOTE | 2017-09-25 19:24 | NUR ---
MANAGER LAW NOTE PATIENT IS AWAKE, NO S/S OF DISTESS NOTED, NO S/S OF PAIN NOTED, SIDE RAILS UP X2, ALL NEEDS ATTENDED, CALL LIGHT WITHIN REACH
[2017-09-25 20:00] VITALS: BP 163/80
--- NOTE | 2017-09-25 20:00 | NUR ---
TELE 1 RN NOTE RECEIVED PT IN BED WITH EYES OPEN. ALERT X 1, NON VERBAL. ON VENT/TRACH TOLERATING THE VENT SETTINGS WELL. SUCTIONED WITH PRN. NOTED THIN WHITE SECRETIONS. ON TELE SR HR 85. SACRAL WOUND DRESSING I/C/D. GT IS CLAMPED. IVF TPN INFUSING AT 42 ML/HR, NO S/S OF INFILTRATION NOTED. NO S/S OF HYPO OR HYPERGLYCEMIA NOTED. REPOSITION HIM Q2H, KEPT HIM DRY AND CLEAN. ALL NEEDS ATTENDED. SIDE RAILS UP X 2 AND CALL LIGHT WITHIN REACH. CONTINUE TO MONITOR HIM.
[2017-09-25] MEDS: PYRIDOXINE HCL 50 MG TABLET GT SCH (21:50)
[2017-09-26] VITALS (7 sets, daily range): BP systolic 136–160; BP diastolic 62–79
[2017-09-26] MEDS: BLOOD SUGAR DIAGNOSTIC 1 EACH STRIP IN SCH ×3 (05:55→18:03)
[2017-09-26] MEDS: INSULIN REGULAR, HUMAN 100 UNIT/ML 3 ML VIAL SQ PRN ×3 (05:59→18:04)
--- NOTE | 2017-09-26 06:43 | NUR ---
TELE 1 RN NOTE PT IN BED NO DISTRESS OR DISCOMFORT NOTED. ON TELE SR 72, NO CHANGE IN CONDITION. REPOSITION HIM Q2H. KEPT HIM DRY AND CLEAN. IVF TPN INFUSING WELL, NO S/S OF INFILTRATION NOTED. FREQUENTLY SUCTION THE PT. ALL NEEDS ATTENDED. SIDE RAILS UP X 3 AND CALL LIGHT WITHIN REACH. WILL ENDORSE TO DAY SHIFT NURSE FOR CONTINUE TO CARE.
--- NOTE | 2017-09-26 07:20 | NUR ---
RN NOTE:(INITIAL) PATIENT RECEIVED IN STABLE CONDITION ALERT AWAKE ORIENTED X1, NON VERBAL. OPEN EYES TO VERBAL & TACTILE STIMULI. ON VENT -TRAC, SETTINGS TOLERATING WELL. NO BREATHING DIFFICULTY NOTED. ON TELE MONITORING , SINUS RHYTHM. JOANN PICC LINE INTACT, RUNNING WITH TPN THERAPY ORDERED. TRIPLE LUMEN, ABLE TO FLUSH WITHOUT DIFFICULTY. SAFETY MEASURES OBSERVED. CONTINUE ON REVERSE ISOLATION. CONTINUE TO MONITOR CLOSELY.
[2017-09-26] MEDS: ACETYLCYSTEINE 10% SOLN 400 MG/4 ML VIAL NEB SCH ×3 (07:38→23:59)
[2017-09-26 08:04] LABS: CALCIUM, SERUM 8.4 mg/dL (8.5-10.1); POTASSIUM 3.8 mmol/L (3.5-5.1)
[2017-09-26 08:05] LABS: MAGNESIUM 2.2 mg/dL (1.8-2.4); PHOSPHORUS 4.8 mg/dL (2.5-4.9)
[2017-09-26] MEDS: VIT B CMPLX 3/FA/VIT C/BIOTIN 1 TAB TABLET GT SCH (10:27)
[2017-09-26] MEDS: ZINC SULFATE 220 MG CAPSULE GT SCH (10:27)
[2017-09-26] MEDS: PROSOURCE / PROSTAT (PYXIS) 30 ML UDC GT SCH ×3 (10:27→17:24)
[2017-09-26] MEDS: GABAPENTIN 100 MG CAPSULE GT SCH ×2 (10:28→21:34)
[2017-09-26] MEDS: LACTOBACILLUS RHAMNOSUS GG 1 EACH CAP.SPRINK GT SCH ×2 (10:28→17:24)
[2017-09-26] MEDS: FOLIC ACID 1 MG TABLET GT SCH (10:28)
[2017-09-26] MEDS: TRAMADOL HCL 50 MG TABLET GT SCH ×2 (10:28→21:34)
[2017-09-26] MEDS: HYDROGEL DRESSING 90 GM TUBE TP SCH (10:29)
[2017-09-26] MEDS: SIMETHICONE SUSP 40 MG/0.6 ML BOTTLE GT SCH ×2 (10:29→17:24)
[2017-09-26] MEDS: Z GUARD REMEDY 2 OZ OINT TP SCH (10:29)
[2017-09-26] MEDS: BACITRACIN/POLYMYXIN B 15 GM TUBE TP SCH (10:31)
[2017-09-26] MEDS: PANTOPRAZOLE 40 MG VIAL IV SCH (11:39)
[2017-09-26] MEDS: LORAZEPAM INJ 2 MG/ML VIAL IV SCH ×2 (11:39→21:34)
[2017-09-26] MEDS: LEVETIRACETAM SOL (5 ML) 100 MG/ML UDC NG SCH ×2 (11:40→21:34)
[2017-09-26] MEDS: SEVELAMER CARBONATE 0.8 GM POWD.PACK GT SCH ×3 (11:40→21:33)
--- NOTE | 2017-09-26 15:00 | NUR ---
RN NOTES: SEEN BY DR. SCHWARTZ. MADE HIM AWARE THAT TODAY CBC NOT ORDERED. HE VERBALIZE THAT'S FINE.
--- NOTE | 2017-09-26 18:40 | NUR ---
RN NOTES: PT REMAINS STABLE DURING SHIFT. NO ACUTE DISTRESS NOTED. VITAL SIGNS REMAINS STABLE DURING SHIFT. S/P HEMODIALYSIS TODAY, TOLERATED WELL. 2L OUTPUT. CONTINUE WITH TPN ORDERED. SAFETY MEASURES OBSERVED. WILL ENDORSE TO PM SHIFT FOR CONTINUITY OF CARE.
--- NOTE | 2017-09-26 20:01 | NUR ---
TELE 1 RN NOTE PT IN BED WITH EYES OPEN. RESPONDS TO TACTILE STIMULATION. NON VERBAL. ON VENT/TRACH TOLERATING THE SETTINGS WELL. KEPT HOB ELEVATED. NO SOB, NO DISTRESS OR DISCOMFORT NOTED. NO S/S OF PAIN NOTED. ON TELE SR HR 77. TPN INFUSING AT 40 ML/HR AT JOANN PICC LINE TRIPLE LUMEN NO S/S OF INFILTRATION NOTED. GT CLAMPED. ABD DISTENDED, PT REMAIN IN REVERSE ISOLATION, ISOLATION PRECAUTIONS TAKEN. REPOSITION HIM FOR SKIN MANAGEMENT. WOUND DRESSINGS I/C/D. BILATERAL HEELS OFFLOADED. SIDE RAILS UP X 3 AND CALL LIGHT WITHIN REACH. BED ALARM. VSS. CONTINUE TO MONITOR HIM.
--- NOTE | 2017-09-26 21:30 | NUR ---
TELE 1 RN NOTE DUE MEDS GIVEN. PT IN BED ASLEEP, NO DISTRESS OR DISCOMFORT NOTED. ON TELE SR 80. REPOSITION HIM Q2K, KEPT HIM DRY AND CLEAN. ALL NEEDS ATTENDED.
[2017-09-26] MEDS: PYRIDOXINE HCL 50 MG TABLET GT SCH (21:34)
[2017-09-27] VITALS (10 sets, daily range): BP systolic 145–165; BP diastolic 47–94
[2017-09-27] MEDS: BLOOD SUGAR DIAGNOSTIC 1 EACH STRIP IN SCH ×5 (00:14→23:37)
[2017-09-27] MEDS: INSULIN REGULAR, HUMAN 100 UNIT/ML 3 ML VIAL SQ PRN ×5 (00:15→23:37)
--- NOTE | 2017-09-27 03:03 | NUR ---
TELE 1 RN NOTE BED BATH GIVEN. PT TOLERATED IT WELL. TPN INFUSING WELL. KEPT HIM DRY AND CLEAN. ALL NEEDS ATTENDED.
[2017-09-27] MEDS ORDERED: TPN BAG #25 IV PRN ×8 (06:00)
--- NOTE | 2017-09-27 06:48 | NUR ---
TELE 1 RN NOTE PT IN BED WITH EYES CLOSED. AROUSABLE. NO DISTRESS OR DISCOMFORT NOTED. ON TELE SR 73, NO CHANGE IN CONDITION. REPOSITION HIM Q2H. KEPT HIM DRY AND CLEAN. IVF TPN INFUSING WELL, NO S/S OF INFILTRATION NOTED. FREQUENTLY SUCTION THE PT. ALL NEEDS ATTENDED. SIDE RAILS UP X 3 AND CALL LIGHT WITHIN REACH. WILL ENDORSE TO DAY SHIFT NURSE FOR CONTINUE TO CARE.
[2017-09-27] MEDS: ACETYLCYSTEINE 10% SOLN 400 MG/4 ML VIAL NEB SCH ×3 (07:32→23:08)
--- NOTE | 2017-09-27 07:40 | NUR ---
RN NOTE:(INITIAL) PATIENT RECEIVED IN STABLE CONDITION ALERT AWAKE ORIENTED X1. ON VENT-TRAC, SETTINGS TOLERATING WELL, BREATHING PATTERN REGULAR & UNLABORED. NO ACUTE DISTRESS NOTED. LEFT UPPER ARM PICC IV LINE SITE INTACT, ABLE TO FLUSH WITHOUT DIFFICULTY. RUNNING WITH TPN ORDERED BY MD. DIALYSIS CATHETER/G-TUBE INTACT, CLAMPED. DRESSING DRY & CLEAN. ON ASPIRATION PRECAUTIONS/SAFETY MEASURES OBSERVED/CONTINUE ON REVERSE ISOLATION. WILL CONTINUE TO MONITOR.
[2017-09-27 07:44] LABS: BASOPHILS % (AUTO) 0.2 % (0.0-2.0); EOSINOPHILS # (AUTO) 0.1 /CMM (0.0-0.7); LYMPHOCYTES # (AUTO) 0.3 /CMM (0.8-4.8); MEAN CORPUSCULAR HEMOGLOBIN 35 PG (26.0-33.0); MEAN CORPUSCULAR HGB CONC 34 g/dl (31.0-36.0); MEAN CORPUSCULAR VOLUME 104 fL (80-96); MONOCYTES # (AUTO) 0.2 /CMM (0.1-1.30); MONOCYTES % (AUTO) 6.5 % (2.0-12.0); NEUTROPHILS # (AUTO) 1.8 /CMM (1.8-8.9); NEUTROPHILS % (AUTO) 77.3 % (43.0-81.0); RDW COEFFICIENT OF VARIATION 20.5 (11.5-15.0); WHITE BLOOD COUNT (AUTO) 2.3 K/uL (4.3-11.0)
[2017-09-27 07:54] LABS: CALCIUM, SERUM 8.7 mg/dL (8.5-10.1); MAGNESIUM 2.3 mg/dL (1.8-2.4); PHOSPHORUS 4.7 mg/dL (2.5-4.9); POTASSIUM 3.8 mmol/L (3.5-5.1)
[2017-09-27 08:02] LABS: RED BLOOD CELL COUNT(AUTO) 1.85 MIL/uL (4.5-6.0)
[2017-09-27 08:05] LABS: HEMOGLOBIN 6.4 g/dL (13.5-17.5)
[2017-09-27 08:06] LABS: HEMATOCRIT 19 % (39-51); PLATELET COUNT (AUTO) 25 /CMM (150-450)
[2017-09-27 08:39] LABS: EOSINOPHILS % (MANUAL) 5 % (0-4); LYMPHOCYTES % (MANUAL) 12 % (16-48); MONOCYTES % (MANUAL) 4 % (0-11.0); NEUTROPHILS % (MANUAL) 79 (42-76)
[2017-09-27] MEDS: ZINC SULFATE 220 MG CAPSULE GT SCH (09:00)
[2017-09-27] MEDS: TRAMADOL HCL 50 MG TABLET GT SCH ×2 (09:00→21:28)
[2017-09-27] MEDS: LACTOBACILLUS RHAMNOSUS GG 1 EACH CAP.SPRINK GT SCH ×2 (09:00→17:01)
[2017-09-27] MEDS ORDERED: TPN BAG #26 IV PRN ×6 (09:00)
[2017-09-27] MEDS: SEVELAMER CARBONATE 0.8 GM POWD.PACK GT SCH ×3 (09:00→21:28)
[2017-09-27] MEDS: GABAPENTIN 100 MG CAPSULE GT SCH ×2 (09:00→21:28)
[2017-09-27] MEDS: LEVETIRACETAM SOL (5 ML) 100 MG/ML UDC NG SCH ×2 (09:00→21:28)
[2017-09-27] MEDS: SIMETHICONE SUSP 40 MG/0.6 ML BOTTLE GT SCH ×2 (09:01→17:02)
[2017-09-27] MEDS: VIT B CMPLX 3/FA/VIT C/BIOTIN 1 TAB TABLET GT SCH (09:01)
[2017-09-27] MEDS: FOLIC ACID 1 MG TABLET GT SCH (09:01)
[2017-09-27] MEDS: PROSOURCE / PROSTAT (PYXIS) 30 ML UDC GT SCH ×3 (09:01→17:01)
[2017-09-27] MEDS: BACITRACIN/POLYMYXIN B 15 GM TUBE TP SCH (09:01)
[2017-09-27] MEDS: HYDROGEL DRESSING 90 GM TUBE TP SCH (09:02)
[2017-09-27] MEDS: Z GUARD REMEDY 2 OZ OINT TP SCH (09:02)
[2017-09-27] MEDS: LORAZEPAM INJ 2 MG/ML VIAL IV SCH ×2 (09:08→21:28)
--- NOTE | 2017-09-27 12:00 | NUR ---
RN NOTE: CRITICAL LAB VALUE H/H =6.4/19 AND PLATELET= 25. 1 UNIT PRBC WILL TRANSFUSED WITH DIALYSIS PER STANDING ORDER. SEEN BY DR. GERMAIN LEVI ONCOLOGIST & DR. Darcie SCHWARTZ.
[2017-09-27] MEDS: PANTOPRAZOLE 40 MG VIAL IV SCH (12:21)
--- NOTE | 2017-09-27 15:05 | NUR ---
1 UNIT PRBC GIVEN WITH DIALYSIS, PER STANDING ORDERS DUE TO LOW HEMOGLOBIN. PT TOLERATED WELL.
--- NOTE | 2017-09-27 18:30 | NUR ---
RN NOTE: PATIENT REMAIN STABLE DURING SHIFT. NO SIGNIFICANT CHANGES NOTED. CONTINUE ON ASPIRATION PRECAUTIONS. SAFETY MEASURES OBSERVED. NO ACTIVE BLEEDING NOTED. ON REVERSE ISOLATION. WILL ENDORSE TO PM SHIFT RN FOR CONTINUITY OF CARE.
--- NOTE | 2017-09-27 19:39 | NUR ---
PT RECEIVED TRACH ON VENT. SUCTIONED SMALL AMOUNT OF PALE YELLOW THICK SECRETIONS. VENT ALARMS SET AND AUDIBLE. AMBU BAG AT BEDSIDE. VENT PLUGGED INTO RED OUTLET. NO RESPIRATORY DISTRESS AT THIS TIME, WILL CONTINUE TO MONITOR THE PT.
--- NOTE | 2017-09-27 20:45 | NUR ---
received pt from day shift, alert, follows commands at times, confused, SR, on the vent, lungs congested, some edema, GT clamped, abdomen distended, on TPN at 40ml/hr, anuric, HD was today, v/s stable, no pain, pt turned and repositioned.
[2017-09-27] MEDS: PYRIDOXINE HCL 50 MG TABLET GT SCH (21:28)
[2017-09-28] VITALS (13 sets, daily range): BP systolic 120–159; BP diastolic 70–98
--- NOTE | 2017-09-28 04:11 | NUR ---
pt is resting in the bed, no acute distress overnight, v/s stable, no pain, pt cleaned, changed and repositioned q2hrs.
[2017-09-28] MEDS: INSULIN REGULAR, HUMAN 100 UNIT/ML 3 ML VIAL SQ PRN ×3 (05:20→17:12)
[2017-09-28] MEDS: BLOOD SUGAR DIAGNOSTIC 1 EACH STRIP IN SCH ×3 (05:20→17:11)
--- NOTE | 2017-09-28 07:05 | NUR ---
RN INITIAL NOTES RECEIVED [facility] WITH FF SETTINGS: AC16, TV500, [id number]%, PEEP+5. TRACH IN PLACE. HOB ELEVATED. NO SOB NOTED. NO SIGNS OF PAIN NOTED. GT CLAMPED. JOANN PICC IN PLACE. RIGHT SUBCLAVIAN HD CATH IN PLACE. ON TPN. HOB ELEVATED. PT COMFORTABLE. ON REVERSE ISOLATION. WILL MONITOR.
[2017-09-28] MEDS: ACETYLCYSTEINE 10% SOLN 400 MG/4 ML VIAL NEB SCH ×3 (07:29→23:30)
[2017-09-28 07:39] LABS: BASOPHILS % (AUTO) 0.4 % (0.0-2.0); EOSINOPHILS # (AUTO) 0.1 /CMM (0.0-0.7); EOSINOPHILS % (AUTO) 3.7 % (0.0-6.0); HEMATOCRIT 21 % (39-51); LYMPHOCYTES # (AUTO) 0.3 /CMM (0.8-4.8); LYMPHOCYTES % (AUTO) 10.5 % (20.0-44.0); MEAN CORPUSCULAR HEMOGLOBIN 34 PG (26.0-33.0); MEAN CORPUSCULAR HGB CONC 33 g/dl (31.0-36.0); MEAN CORPUSCULAR VOLUME 100 fL (80-96); MONOCYTES # (AUTO) 0.2 /CMM (0.1-1.30); MONOCYTES % (AUTO) 6.5 % (2.0-12.0); NEUTROPHILS # (AUTO) 1.9 /CMM (1.8-8.9); NEUTROPHILS % (AUTO) 78.9 % (43.0-81.0); RDW COEFFICIENT OF VARIATION 21.4 (11.5-15.0); RED BLOOD CELL COUNT(AUTO) 2.09 MIL/uL (4.5-6.0); WHITE BLOOD COUNT (AUTO) 2.5 K/uL (4.3-11.0)
[2017-09-28 07:46] LABS: CALCIUM, SERUM 8.4 mg/dL (8.5-10.1); CREATININE 3.8 mg/dL (0.6-1.3); MAGNESIUM 2.2 mg/dL (1.8-2.4); PHOSPHORUS 4.3 mg/dL (2.5-4.9)
[2017-09-28 07:54] LABS: PLATELET COUNT (AUTO) 25 /CMM (150-450)
[2017-09-28] MEDS: LEVETIRACETAM SOL (5 ML) 100 MG/ML UDC NG SCH ×2 (08:38→21:14)
[2017-09-28] MEDS: PROSOURCE / PROSTAT (PYXIS) 30 ML UDC GT SCH ×3 (08:38→16:51)
[2017-09-28] MEDS: LACTOBACILLUS RHAMNOSUS GG 1 EACH CAP.SPRINK GT SCH ×2 (08:38→16:51)
[2017-09-28] MEDS: SEVELAMER CARBONATE 0.8 GM POWD.PACK GT SCH ×3 (08:38→21:13)
[2017-09-28] MEDS: TRAMADOL HCL 50 MG TABLET GT SCH ×2 (08:39→21:14)
[2017-09-28] MEDS: GABAPENTIN 100 MG CAPSULE GT SCH ×2 (08:40→21:13)
[2017-09-28] MEDS: VIT B CMPLX 3/FA/VIT C/BIOTIN 1 TAB TABLET GT SCH (08:40)
[2017-09-28] MEDS: ZINC SULFATE 220 MG CAPSULE GT SCH (08:40)
[2017-09-28] MEDS: FOLIC ACID 1 MG TABLET GT SCH (08:40)
[2017-09-28] MEDS: LORAZEPAM INJ 2 MG/ML VIAL IV SCH ×2 (08:41→21:22)
[2017-09-28] MEDS: BACITRACIN/POLYMYXIN B 15 GM TUBE TP SCH (08:41)
[2017-09-28] MEDS: Z GUARD REMEDY 2 OZ OINT TP SCH (08:41)
[2017-09-28] MEDS: HYDROGEL DRESSING 90 GM TUBE TP SCH (08:41)
[2017-09-28] MEDS: SIMETHICONE SUSP 40 MG/0.6 ML BOTTLE GT SCH ×2 (08:50→16:51)
[2017-09-28 10:13] LABS: BAND % (MANUAL) 1 % (0.0-5.0); EOSINOPHILS % (MANUAL) 10 % (0-4); LYMPHOCYTES % (MANUAL) 5 % (16-48); MONOCYTES % (MANUAL) 2 % (0-11.0); NEUTROPHILS % (MANUAL) 82 (42-76)
[2017-09-28] MEDS: PANTOPRAZOLE 40 MG VIAL IV SCH (11:18)
[2017-09-28] MEDS ORDERED: TPN #27 IV SCH ×8 (11:30)
--- NOTE | 2017-09-28 13:00 | NUR ---
RN NOTES SEEN AND EXAMINED BY DR. JENI SCHWARTZ. AWARE OF CURRENT LAB VALUES: WBC 2.5, ON REVERSE ISOLATION. HGB 7, HCT 21. NO ACTIVE BLEEDING NOTED. 1 UNIT OF PRBC TRANSFUSING. PLATELET 25, BUN 70, CREA 3.8. NO ORDER MADE. WILL CONTINUE TO MONITOR.
--- NOTE | 2017-09-28 14:00 | NUR ---
JAMIE NOTES CALLED JERONIMO MAYEN REGARDING CLARIFICATION OF GTF ORDER. PT ON TPN. AWAITING CALL BACK. Addendum: 09/28/17 at 1414 by VERONICA KIDD RN JERONIMO MAYEN CALLED BACK AND ORDERED DIETARY CONSULT FOR GTF TRIAL. WILL MONITOR FOR TOLERANCE. WILL CONTINUE TPN ORDERED.
--- NOTE | 2017-09-28 15:29 | NUR ---
RN NOTES MEDICAL DRIVER IN THE UNIT. MADE AWARE OF DIETARY CONSULT. REVIEWED MEDS AND CURRENT LAB VALUES. PT ON TPN. ORDERED NOVASOURCE AT 15ML/HR. GOAL IS 35ML/HR GTF TRAIL. WILL CONTINUE TPN ORDERED. WILL MONITOR FOR GTF TOLERANCE.
[2017-09-28] MEDS: RENAL NOVASOURCE 1,000 ML BOTTLE GT PRN (17:48)
--- NOTE | 2017-09-28 18:34 | NUR ---
RN CLOSING NOTES PT REMAINS STABLE.NO RESPIRATORY DISTRESS NOTED. NO SIGNS OF PAIN NOTED. PICC LINE IN PLACE. SP BT 1 UNIT OF PRBC. NO REACTION NOTED. GT IN PLACE. GTF STARTED. NO RESIDUAL NOTED. WILL MONITOR FOR TOLERANCE. KEPT CLEAN AND DRY. REPOSITIONED Q2. TX ORDERED. BLE ELEVATED. WILL ENDORSE FOR CONTINUITY OF CARE.
--- NOTE | 2017-09-28 19:30 | NUR ---
MS RN NOTES RECEIVED ON BED,SLEEPING AROUSABLE TO TACTILE STIMULI.ON TRACH TO VENT,SETTINGS TOLERATED WELL,WITH 100% O2 SATURATION.WITH GT FEEDING OF NOVASOURCE AT 15ML/HR RATE,TOLERATED NO RESIDUAL NOTED.ON TPN AT 40ML/HR RATE INFUSING VIA IV PUMP THRU LEFT UPPER ARM PICC LINE.DVT PUMP IN USED FOR DVT PROPHYLAXIS.ON REVERSE ISOLATION FOR LOW WBC.WILL CONTINUE TO MONITOR STATUS.
--- NOTE | 2017-09-28 22:00 | NUR ---
SHEET METAL WORKER NOTES ULTRAM EFFECTIVE FOR PAIN MANAGEMENT.CALM AT THIS TIME.
[2017-09-28] MEDS: PYRIDOXINE HCL 50 MG TABLET GT SCH (22:30)
[2017-09-29] VITALS (9 sets, daily range): BP systolic 79–180; BP diastolic 74–89
--- NOTE | 2017-09-29 | NUR ---
SOC ANALYST NOTES ACCU-CHECK BLOOD SUGAR CHECK 199,COVERED WITH 6 UNITS HUMULIN R SQ PER SLIDING SCALE.GT FEEDING IN PROGRESS TOLERATED WELL.NO RESIDUAL NOTED.
[2017-09-29] MEDS: BLOOD SUGAR DIAGNOSTIC 1 EACH STRIP IN SCH ×5 (00:12→23:26)
[2017-09-29] MEDS: INSULIN REGULAR, HUMAN 100 UNIT/ML 3 ML VIAL SQ PRN ×4 (00:20→17:08)
--- NOTE | 2017-09-29 00:30 | NUR ---
SOLDERER NOTES SPONGE BATH ADMINSTERED BY ALICIA WEI,TOLERATED WELL.
--- NOTE | 2017-09-29 02:04 | NUR ---
PLANNING INTERN NOTES VENT ALARM,SUCTION MUCUS NEEDED,RT WAS CALLED TO ADMINISTERED MUCOMYST ORDERED.
--- NOTE | 2017-09-29 05:30 | NUR ---
POWER GENERATION TECHNICIAN NOTES ACCU-CHECK BLOOD SUGAR CHECK 185,COVERED WITH 6 UNITS HUMULIN R PER SLIDING SCALE.
--- NOTE | 2017-09-29 06:21 | NUR ---
LIFE CARE PLANNER NOTES NO SIGNIFICANT CHANGE IN STATUS.GT HELD,RESIDUAL MORE THAN 150 THIS TIME.CHARGE NURSE GINI MADE AWARE.HOB ELEVATED.TPN IN PROGRESS #26.IN NO ACUTE DISTRESS.WILL ENDORSE TO DAY NURSE FOR KRYS.
--- NOTE | 2017-09-29 07:30 | NUR ---
TEL RN NOTES RECEIVED PT IN BED, AWAKE, ALERT, ABLE TO FOLLOW SIMPLE COMMANDS, ON PORTEX #8, VENT DEPENDENT, SETTINGS ORDERED, NOT IN ANY DISTRESS, UNLABORED BREATHING, ON BED, WITH 100% O2 SATURATION.TELEMETRY READS SR HR 72 , NO SIGNS OF DISCOMFORT, TPN ONGOING BAG #26 AT 40 ML/HR TO JOANN PICC LINE, SITE CLEAR, CDI DRESSING, GT FEEDING OF NOVASOURCE AT 15ML/HR RATE, ON HOLD, RESIDUAL AT 150 ML/HR, SEE NURSING FLOWSHEET FOR SKIN ISSUES, DVT PUMP IN USED FOR DVT PROPHYLAXIS.ON REVERSE ISOLATION FOR LOW WBC.WILL CONTINUE TO MONITOR STATUS.
[2017-09-29] MEDS: ACETYLCYSTEINE 10% SOLN 400 MG/4 ML VIAL NEB SCH ×3 (07:35→23:30)
--- NOTE | 2017-09-29 07:37 | NUR ---
Received pt on mechanical vent. Pt trach is secure. Vent is plugged into a red outlet, alarms are set and audible, and BVM is at bedside. Addendum: 09/29/17 at 0738 by MARIOLA CASTELLANOS RT Amended: Links added.
[2017-09-29 07:43] LABS: CALCIUM, SERUM 8.6 mg/dL (8.5-10.1); CREATININE 4.3 mg/dL (0.6-1.3); MAGNESIUM 2.4 mg/dL (1.8-2.4); PHOSPHORUS 4.8 mg/dL (2.5-4.9)
[2017-09-29] MEDS: VIT B CMPLX 3/FA/VIT C/BIOTIN 1 TAB TABLET GT SCH (09:19)
[2017-09-29] MEDS: FOLIC ACID 1 MG TABLET GT SCH (09:20)
[2017-09-29] MEDS: TRAMADOL HCL 50 MG TABLET GT SCH ×2 (09:20→21:00)
[2017-09-29] MEDS: ZINC SULFATE 220 MG CAPSULE GT SCH (09:22)
[2017-09-29] MEDS: GABAPENTIN 100 MG CAPSULE GT SCH ×2 (09:22→22:01)
[2017-09-29] MEDS: SEVELAMER CARBONATE 0.8 GM POWD.PACK GT SCH ×3 (09:22→22:00)
[2017-09-29] MEDS: LEVETIRACETAM SOL (5 ML) 100 MG/ML UDC NG SCH ×2 (09:22→22:01)
[2017-09-29] MEDS: LACTOBACILLUS RHAMNOSUS GG 1 EACH CAP.SPRINK GT SCH ×2 (09:22→16:50)
[2017-09-29] MEDS: SIMETHICONE SUSP 40 MG/0.6 ML BOTTLE GT SCH ×2 (09:23→16:51)
[2017-09-29] MEDS: Z GUARD REMEDY 2 OZ OINT TP SCH (09:24)
[2017-09-29] MEDS: HYDROGEL DRESSING 90 GM TUBE TP SCH (09:24)
[2017-09-29] MEDS: LORAZEPAM INJ 2 MG/ML VIAL IV SCH ×2 (09:25→22:01)
--- NOTE | 2017-09-29 09:30 | NUR ---
RN NOTES ADMINISTERED DUE MEDS. HD COMPETED TODAY AT 09[address] CALABRESE NOTIFIED ABOUT GTF AND RESIDUAL STILL AT 150-180 ML. WILL HOLD GTF FOR NOW.
[2017-09-29] MEDS: PROSOURCE / PROSTAT (PYXIS) 30 ML UDC GT SCH ×3 (09:31→16:50)
[2017-09-29] MEDS: BACITRACIN/POLYMYXIN B 15 GM TUBE TP SCH (09:42)
--- NOTE | 2017-09-29 11:00 | NUR ---
RN NOTES STARTED TPN BAG #27.
--- NOTE | 2017-09-29 11:30 | NUR ---
RN NOTES CHECK GT FOR RESIDUAL, STILL AT 150 ML.
[2017-09-29] MEDS: PANTOPRAZOLE 40 MG VIAL IV SCH (12:25)
--- NOTE | 2017-09-29 12:32 | NUR ---
RN NOTES ACCUCHECK DONE. BS 186 MG/DL. ADMINISTERED 6 UNITS HUM R PER SS.
--- NOTE | 2017-09-29 13:00 | NUR ---
RN NOTES RESIDUAL STILL AT 120 ML.
[2017-09-29] MEDS ORDERED: TPN #29 IV SCH ×6 (15:00)
[2017-09-29] MEDS ORDERED: TPN IV SCH ×7 (15:00)
--- NOTE | 2017-09-29 15:30 | NUR ---
RN NOTES GT RESIDUAL 120 ML CLEAR YELLOW.
[2017-09-29] MEDS: CLONIDINE HCL 0.1MG/24H PTWK 1 EA PATCH TD SCH (15:38)
--- NOTE | 2017-09-29 17:05 | NUR ---
RN NOTES ACCUCHECK. BS 164 MG/DL. ADMINISTERED 6 UNITS HUM R PER SS.
--- NOTE | 2017-09-29 18:15 | NUR ---
TEL RN NOTES PT IN BED, AWAKE, ALERT, ABLE TO FOLLOW SIMPLE COMMANDS, ON PORTEX #8, VENT DEPENDENT, SETTINGS ORDERED, NOT IN ANY DISTRESS, UNLABORED BREATHING, ON BED, WITH 100% O2 SATURATION.TELEMETRY READS SR HR 80 , NO SIGNS OF DISCOMFORT, TPN ONGOING BAG #27 AT 40 ML/HR TO JOANN PICC LINE, SITE CLEAR, CDI DRESSING, GT FEEDING OF NOVASOURCE AT 15ML/HR RATE, ON HOLD, RESIDUAL AT 120 ML/HR, DVT PUMP IN USED FOR DVT PROPHYLAXIS.ON REVERSE ISOLATION FOR LOW WBC.TURNED AND REPOSITIONED Q2H. PM CARE DONE. ALL NEEDS MET. WILL ENDORSE TO NEXT SHIFT FOR KRYS
--- NOTE | 2017-09-29 19:42 | NUR ---
WEIGHT INSPECTOR INITIAL NOTE PT RECEIVED IN NO ACUTE DISTRESS AT THIS TIME. FAMILY IS AT BEDSIDE CLEANING PATIENT AND SPEAKING TO HIM. PT IS A/O X1 ABLE TO TRACK WITH EYES. ON TELE WITH SR AND VENT/TRACH SETTINGS BEING TOLERATED WELL. GTF BEING HELD AT THE MOMENT DUE TO PREVIOUS HIGH RESIDUALS BUT TPN BEING RUN @40CC/HR. JOANN PICC LINE AND R SUBCLAVIAN PERMACATH ARE CLEAN DRY AND INTACT. HD DONE TODAY 2L OUT. COMFORT AND SAFETY MEASURES TO BE ENSURED DURING THE SHIFT. WILL CONTINUE TO MONITOR FOR ANY CHANGES DURING THE SHIFT.
[2017-09-29] MEDS: PYRIDOXINE HCL 50 MG TABLET GT SCH (22:02)
[2017-09-30] VITALS: BP 166/76
[2017-09-30 04:00] VITALS: BP 174/62
[2017-09-30] MEDS: hydrALAZINE HCL IV 20 MG VIAL IV PRN (05:15)
[2017-09-30] MEDS: BLOOD SUGAR DIAGNOSTIC 1 EACH STRIP IN SCH ×3 (05:15→17:37)
[2017-09-30] MEDS: INSULIN REGULAR, HUMAN 100 UNIT/ML 3 ML VIAL SQ PRN ×3 (05:22→17:48)
--- NOTE | 2017-09-30 05:46 | NUR ---
TEA ROOM MANAGER CLOSING NOTE PT REMAINS IN NO ACUTE DISTRESS AT THIS TIME. JOANN PICC LINE IS RUNNING TPN. GT UNABLE TO RUN GTF DUE TO APPARENT BLOCKAGE BUT WHEN ASPIRATED AND FLUSHED EASILY. RIGHT SUBCLAVIAN PERMACATH IS CLEAN DRY AND PATENT. ALL DUE MEDICATIONS WERE GIVEN AND TOLERATED ORDERED. WILL ENDORSE CARE TO AM NURSE.
--- NOTE | 2017-09-30 07:30 | NUR ---
TEL RN NOTES RECEIVED PT IN BED, AWAKE, ALERT, ABLE TO FOLLOW SIMPLE COMMANDS, ON PORTEX #8, VENT DEPENDENT, SETTINGS ORDERED, NOT IN ANY DISTRESS, UNLABORED BREATHING, ON BED, WITH 100% O2 SATURATION.TELEMETRY READS SR HR 80 , NO SIGNS OF DISCOMFORT, TPN ONGOING BAG #27 AT 40 ML/HR TO JOANN PICC LINE, SITE CLEAR, CDI DRESSING, GT FEEDING OF NOVASOURCE AT 15ML/HR RATE, ONGOING, RESIDUAL AT 5 ML/HR, SEE NURSING FLOWSHEET FOR SKIN ISSUES, DVT PUMP IN USED FOR DVT PROPHYLAXIS.ON REVERSE ISOLATION FOR LOW WBC.WILL CONTINUE TO MONITOR STATUS.
[2017-09-30] MEDS: ACETYLCYSTEINE 10% SOLN 400 MG/4 ML VIAL NEB SCH (07:35)
--- NOTE | 2017-09-30 07:49 | NUR ---
Pt received on mechanical ventilator. Pt trach is secure. Vent is plugged into a red outlet, alarms are set and audible, and BVM is at bedside. Addendum: 09/30/17 at 0750 by MARIOLA CASTELLANOS RT Amended: Links added.
[2017-09-30 08:00] VITALS: BP 162/77
[2017-09-30 08:55] LABS: BASOPHILS % (AUTO) 0.4 % (0.0-2.0); EOSINOPHILS # (AUTO) 0.1 /CMM (0.0-0.7); EOSINOPHILS % (AUTO) 3.4 % (0.0-6.0); HEMATOCRIT 25 % (39-51); HEMOGLOBIN 8.6 g/dL (13.5-17.5); LYMPHOCYTES # (AUTO) 0.2 /CMM (0.8-4.8); LYMPHOCYTES % (AUTO) 9.6 % (20.0-44.0); MEAN CORPUSCULAR HEMOGLOBIN 34 PG (26.0-33.0); MEAN CORPUSCULAR HGB CONC 34 g/dl (31.0-36.0); MEAN CORPUSCULAR VOLUME 99 fL (80-96); MONOCYTES # (AUTO) 0.1 /CMM (0.1-1.30); MONOCYTES % (AUTO) 6.3 % (2.0-12.0); NEUTROPHILS # (AUTO) 1.8 /CMM (1.8-8.9); NEUTROPHILS % (AUTO) 80.3 % (43.0-81.0); RDW COEFFICIENT OF VARIATION 20.2 (11.5-15.0); RED BLOOD CELL COUNT(AUTO) 2.52 MIL/uL (4.5-6.0); WHITE BLOOD COUNT (AUTO) 2.2 K/uL (4.3-11.0)
[2017-09-30 08:58] LABS: CALCIUM, SERUM 8.8 mg/dL (8.5-10.1); CREATININE 4.1 mg/dL (0.6-1.3); MAGNESIUM 2.4 mg/dL (1.8-2.4); PHOSPHORUS 4.9 mg/dL (2.5-4.9)
[2017-09-30 09:20] LABS: PLATELET COUNT (AUTO) 22 /CMM (150-450)
--- NOTE | 2017-09-30 09:30 | NUR ---
RN NOTES ADMINISTERED DUE MEDS. GT RESIDUAL AT 130. WILL HOLD GTF FOR NOW. NOTIFIED.
[2017-09-30] MEDS: TRAMADOL HCL 50 MG TABLET GT SCH ×2 (09:42→21:52)
[2017-09-30] MEDS: VIT B CMPLX 3/FA/VIT C/BIOTIN 1 TAB TABLET GT SCH (09:42)
[2017-09-30] MEDS: FOLIC ACID 1 MG TABLET GT SCH (09:42)
[2017-09-30] MEDS: LEVETIRACETAM SOL (5 ML) 100 MG/ML UDC NG SCH ×2 (09:42→21:51)
[2017-09-30] MEDS: ZINC SULFATE 220 MG CAPSULE GT SCH (09:42)
[2017-09-30] MEDS: LACTOBACILLUS RHAMNOSUS GG 1 EACH CAP.SPRINK GT SCH ×2 (09:42→17:37)
[2017-09-30] MEDS: SEVELAMER CARBONATE 0.8 GM POWD.PACK GT SCH ×3 (09:42→21:52)
[2017-09-30] MEDS: GABAPENTIN 100 MG CAPSULE GT SCH ×2 (09:42→21:51)
[2017-09-30] MEDS: PROSOURCE / PROSTAT (PYXIS) 30 ML UDC GT SCH ×3 (09:43→17:37)
[2017-09-30] MEDS: SIMETHICONE SUSP 40 MG/0.6 ML BOTTLE GT SCH ×2 (09:44→17:37)
[2017-09-30] MEDS: HYDROGEL DRESSING 90 GM TUBE TP SCH (09:45)
[2017-09-30] MEDS: Z GUARD REMEDY 2 OZ OINT TP SCH (09:45)
[2017-09-30] MEDS: LORAZEPAM INJ 2 MG/ML VIAL IV SCH ×2 (09:46→22:39)
[2017-09-30] MEDS: BACITRACIN/POLYMYXIN B 15 GM TUBE TP SCH (09:46)
[2017-09-30 10:16] LABS: LYMPHOCYTES % (MANUAL) 11 % (16-48); MONOCYTES % (MANUAL) 6 % (0-11.0); NEUTROPHILS % (MANUAL) 83 (42-76)
--- NOTE | 2017-09-30 11:53 | NUR ---
N NOTES ACCUCHECK DONE. BS 180 MG/DL. ADMINISTERED 6 UNITS HUM R PER SS. GT RESIDUAL AT 120 ML. WILL CONTINUE TO HOLD GTF
[2017-09-30 12:00] VITALS: BP 156/75
[2017-09-30] MEDS: PANTOPRAZOLE 40 MG VIAL IV SCH (12:02)
--- NOTE | 2017-09-30 13:05 | NUR ---
RN NOTES RESIDUAL STILL AT 120 ML.
--- NOTE | 2017-09-30 15:16 | NUR ---
RN NOTES STARTED TPN BAG #27. GTF ON HOLD. RESIDUAL 110 ML
[2017-09-30 16:00] VITALS: BP 163/74
[2017-09-30] MEDS: ACETYLCYSTEINE 20% SOLN 800 MG/4 ML VIAL NEB SCH ×2 (16:03→23:33)
--- NOTE | 2017-09-30 17:45 | NUR ---
RN NOTES ACCUCHECK. BS 181MG/DL. ADMINISTERED 6 UNITS HUM R PER SS. PM CARE DONE. GTF ON HOLD RESIDUAL [address] CALABRESE AWARE.
--- NOTE | 2017-09-30 18:32 | NUR ---
TEL RN CLOSING NOTES PT IN BED, RESTING , AWAKE, ALERT, ABLE TO FOLLOW SIMPLE COMMANDS, ON PORTEX #8, VENT DEPENDENT, SETTINGS ORDERED, NOT IN ANY DISTRESS, UNLABORED BREATHING, ON BED, WITH 100% O2 SATURATION.TELEMETRY READS SR HR 71 , NO SIGNS OF DISCOMFORT, TPN ONGOING BAG #28 AT 40 ML/HR TO JOANN PICC LINE, SITE CLEAR, CDI DRESSING, GT FEEDING OF NOVASOURCE AT 15ML/HR RATE, ON HOLD, RESIDUAL AT 150 ML/HR, DVT PUMP IN USED FOR DVT PROPHYLAXIS.ON REVERSE ISOLATION FOR LOW WBC.TURNED AND REPOSITIONED Q2H. PM CARE DONE. ALL NEEDS MET. WILL ENDORSE TO NEXT SHIFT FOR KRYS
[2017-09-30] MEDS ORDERED: DIATR MEGLU/DIATRIZOATE SODIUM 30 ML BOTTLE (GASTROGRAPHIN) PO STA (19:06)
[2017-09-30] MEDS ORDERED: DIATR MEGLU/DIATRIZOATE SODIUM 30 ML BOTTLE (GASTROGRAPHIN) ONE (19:20)
[2017-09-30 20:00] VITALS: BP_SYST 153; BP_SYST 158; BP_DIAS 83
--- NOTE | 2017-09-30 20:00 | NUR ---
RN INITIAL NOTES RECEIVED PATIENT FROM MORNING SHIFT. PATIENT IS ALERT AND AWAKE. NOTED ABDOMINAL DISTENTION. PATIENT HAS A GTUBE, FEEDING IS NOT RUNNING. KUB TO BE DONE. TPN RUNNING ON AT 40 ML PER HOUR ON THE RIGHT SUBCLAVIAN ACCESS. IV ACCESS INTACT WITH NO SIGNS OF COMPLICATIONS. SAFETY MEASURES PROVIDED.
[2017-09-30] MEDS: PYRIDOXINE HCL 50 MG TABLET GT SCH (21:51)
[2017-10-01] VITALS: BP 158/93
[2017-10-01] MEDS: BLOOD SUGAR DIAGNOSTIC 1 EACH STRIP IN SCH ×4 (00:40→17:02)
[2017-10-01] MEDS: INSULIN REGULAR, HUMAN 100 UNIT/ML 3 ML VIAL SQ PRN ×4 (00:44→17:04)
[2017-10-01 04:00] VITALS: BP 176/83
[2017-10-01] MEDS: hydrALAZINE HCL IV 20 MG VIAL IV PRN (04:31)
--- NOTE | 2017-10-01 07:20 | NUR ---
RN NOTES PT HAS NO SIGNIFICANT CHANGE OF CONDITION AT THIS TIME REMAINED IN TPN ORDERED. GTF TOLERATED WELL WITH 50 CC RESIDUAL. CONTINUE GTF ORDERED. HOB KEPT ELEVATED. ABDOMINAL DISTENTION STILL NOTED. ALL DUE MEDICINE GIVEN ORDERED. KEPT PT CLEAN AND DRY. TOTAL CARE PROVIDED. WILL CONTINUE PLAN OF CARE AND FOLLOW UP MD FOR ANY SIGNIFICANT CHANGES. WILL ENDORSED CONTINUITY OF CARE TO AM NURSE.
[2017-10-01 07:32] LABS: CALCIUM, SERUM 8.9 mg/dL (8.5-10.1); CREATININE 4.7 mg/dL (0.6-1.3); MAGNESIUM 2.5 mg/dL (1.8-2.4); PHOSPHORUS 5.5 mg/dL (2.5-4.9); POTASSIUM 4.2 mmol/L (3.5-5.1)
[2017-10-01 08:00] VITALS: BP 150/91
--- NOTE | 2017-10-01 08:00 | NUR ---
ICU/RN INITIAL NOTES,AM RECEIVED REPORT FROM NIGHT NURSE. PT OPENS EYES, DOES NOT FOLLOW COMMANDS. PT ON VENT SETTINGS ORDERED BY MD, NO ACUTE DISTRESS NOTED. PT ON TELE, SINUS. HEMODIALYSIS IN PROCESS AT THIS TIME. TOLERATING WELL. VSS. PT ANURIC. TPN INFUSING ORDERED. GTUBE FEEDING STARTED AT LOW RATE PER MD, WILL TITRATE TOLERATED. ALL NEEDS WILL BE MET, SAFETY MEASURES TAKEN, BED IN LOW POSITION, SIDE RIALS UP, CALL LIGHT WITH IN REACH.
[2017-10-01] MEDS: ACETYLCYSTEINE 20% SOLN 800 MG/4 ML VIAL NEB SCH ×3 (08:12→22:55)
--- NOTE | 2017-10-01 09:22 | NUR ---
ICU/RN ENDING NOTES,AM END OF HD, 2LITERS OUT, TOLERATED WELL. NO DISTRESS VSS. Addendum: 10/01/17 at 1836 by JAZZ YDE RN INCORRECT TIME CHARTED, MEANT FOR 3098
[2017-10-01] MEDS: LORAZEPAM INJ 2 MG/ML VIAL IV SCH ×2 (09:30→22:07)
[2017-10-01] MEDS: SEVELAMER CARBONATE 0.8 GM POWD.PACK GT SCH ×3 (09:39→22:07)
[2017-10-01] MEDS: FOLIC ACID 1 MG TABLET GT SCH (09:39)
[2017-10-01] MEDS: LACTOBACILLUS RHAMNOSUS GG 1 EACH CAP.SPRINK GT SCH ×2 (09:39→16:52)
[2017-10-01] MEDS: TRAMADOL HCL 50 MG TABLET GT SCH ×2 (09:39→22:06)
[2017-10-01] MEDS: GABAPENTIN 100 MG CAPSULE GT SCH ×2 (09:39→22:06)
[2017-10-01] MEDS: ZINC SULFATE 220 MG CAPSULE GT SCH (09:39)
[2017-10-01] MEDS: VIT B CMPLX 3/FA/VIT C/BIOTIN 1 TAB TABLET GT SCH (09:39)
[2017-10-01] MEDS: LEVETIRACETAM SOL (5 ML) 100 MG/ML UDC NG SCH ×2 (09:39→22:06)
[2017-10-01] MEDS: SIMETHICONE SUSP 40 MG/0.6 ML BOTTLE GT SCH ×2 (09:40→16:55)
[2017-10-01] MEDS: PROSOURCE / PROSTAT (PYXIS) 30 ML UDC GT SCH ×3 (10:07→16:51)
[2017-10-01] MEDS: Z GUARD REMEDY 2 OZ OINT TP SCH (10:08)
[2017-10-01] MEDS: BACITRACIN/POLYMYXIN B 15 GM TUBE TP SCH (10:09)
[2017-10-01] MEDS: HYDROGEL DRESSING 90 GM TUBE TP SCH (10:09)
[2017-10-01] MEDS: PANTOPRAZOLE 40 MG VIAL IV SCH (10:48)
[2017-10-01] MEDS ORDERED: TPN BAG #29 IV PRN ×6 (11:43)
[2017-10-01 12:00] VITALS: BP 133/89
[2017-10-01] MEDS ORDERED: TPN BAG #30 IV PRN ×7 (12:00)
--- NOTE | 2017-10-01 15:00 | NUR ---
ICU/RN: PER DR. KIM, INCREASE THE TUBE FEED 5ML/HR TOLERATED TO GOAL 50. INCREASED TO 20 ML/HR, WILL CONTINUE TO MONITOR
[2017-10-01 16:00] VITALS: BP 129/80
--- NOTE | 2017-10-01 18:36 | NUR ---
ICU/RN ENDING NOTES,AM REPORT WILL BE ENDORSED TO NIGHT NURSE FOR KRYS. PT ON VENT SETTINGS ORDERED BY MD, NO ACUTE DISTRESS NOTED AT THIS TIME. PT ON TPN ORDERED ALONG WITH GTUBE FEEDING, WILL INCREASE TOLERATED. ALL NEEDS MET, PT BATHE, TURNED AND REPOSITIONED, SAFETY MEASURES TAKEN, BED IN LOW POSITION, SIDE RAILS UP, CALL LIGHT WITHIN REACH.
[2017-10-01] MEDS: LORAZEPAM INJ 2 MG/ML VIAL IV PRN (19:29)
--- NOTE | 2017-10-01 19:30 | NUR ---
FRUIT TESTER INITIAL NOTE PT RECEIVED IN BED. A/O X1 AND ABLE TO TRACK EYES. ON MECH VENT WITH SETTINGS WELL TOLERATED AND SATURATING 100%. NOTED WITH SOME ANXIETY AND TACHYCARDIA. PREVIOUS SHIFT TO ADMINISTER ATIVAN. TELE- ST 112. GTUBE FEEDING IN PLACE AND NO RESIDUALS OR LEAKING NOTED AT THIS TIME. IV JOANN MIDLINE CLEAN AND DRY WITH TPN INFUSING. R SUBCLAVIAN PERMACATH IN PLACE AND CLEAN. REVERSE ISOLATION PRECAUTIONS AND ASPIRATION PRECAUTIONS OBSERVED. HOB ELEVATED. WILL CONTINUE TO MONITOR.
--- NOTE | 2017-10-01 19:38 | NUR ---
ICU/RN: PT HR 129-131, PRN ATIVAN GIVEN, PT ANXIOUS. ENDORSED TO NIGHT NURSE TO ASSESS
[2017-10-01 20:00] VITALS: BP 104/76
[2017-10-01] MEDS: PYRIDOXINE HCL 50 MG TABLET GT SCH (22:06)
[2017-10-02] VITALS: BP 103/63
[2017-10-02] MEDS: BLOOD SUGAR DIAGNOSTIC 1 EACH STRIP IN SCH ×5 (00:43→23:32)
[2017-10-02] MEDS: INSULIN REGULAR, HUMAN 100 UNIT/ML 3 ML VIAL SQ PRN ×5 (00:46→23:31)
--- NOTE | 2017-10-02 01:00 | NUR ---
RN NOTE ORDER TO INCREASE GT FEEDING BY 5ML/HR Q4H TOLERATED. RESIDUALS OF 50ML/HR NOTED WITH NOVASOURCE AT 20MLS/HR. INCREASED TO 25MLS/HR. GTUBE IN PLACE AND NO LEAKING AT THIS TIME. WILL CONTINUE TO MONITOR.
[2017-10-02] MEDS: diphenhydrAMINE HCL 50 MG/ML VIAL IV PRN (02:25)
[2017-10-02] MEDS: LORAZEPAM INJ 2 MG/ML VIAL IV PRN ×2 (02:25→06:22)
[2017-10-02 04:00] VITALS: BP 108/90
--- NOTE | 2017-10-02 05:10 | NUR ---
RN NOTE GTUBE RESIDUALS CHECKED. 150 ML RESIDUALS NOTED WITH 25MLS/HR. GTUBE FEEDING TURNED OFF. GTUBE SITE HAS NO LEAKAGE AND DRESSING INTACT. WILL CONTINUE TO MONITOR.
[2017-10-02] MEDS: RENAL NOVASOURCE 1,000 ML BOTTLE GT PRN (05:17)
--- NOTE | 2017-10-02 06:53 | NUR ---
ASSISTANT BASEBALL COACH CLOSING NOTE PT REMAINED STABLE DURING SHIFT. NO ACUTE DISTRESS NOTED. NOTED WITH SOME ANXIETY AND HEART RATE SINUS TACHY. GAVE ATIVAN 2MG/1ML Q2H PRN AND WELL TOLERATED. HOB ELEVATED. GTUBE FEEDING IS CURRENTLY OFF AT THIS TIME. VENT SETTINGS WELL TOLERATED. TPN STILL INFUSING. REVERSE ISOLATION PRECAUTIONS OBSERVED. WILL ENDORSE TO NEXT SHIFT FOR CONTINUITY OF CARE.
[2017-10-02] MEDS: ACETYLCYSTEINE 20% SOLN 800 MG/4 ML VIAL NEB SCH ×3 (07:38→23:48)
[2017-10-02 07:53] LABS: CALCIUM, SERUM 8.8 mg/dL (8.5-10.1); MAGNESIUM 2.2 mg/dL (1.8-2.4); PHOSPHORUS 3.7 mg/dL (2.5-4.9); POTASSIUM 4.3 mmol/L (3.5-5.1)
[2017-10-02 08:00] VITALS: BP 111/42
--- NOTE | 2017-10-02 08:05 | NUR ---
RN NOTES PT NOTED TEMP OF 102.8, COOLING MEASURES PROVIDED. CALLED [facility] RN STARS WAS PAGED. AWAITING FOR CALL BACK
[2017-10-02] MEDS: SEVELAMER CARBONATE 0.8 GM POWD.PACK GT SCH ×3 (09:19→20:45)
[2017-10-02] MEDS: LACTOBACILLUS RHAMNOSUS GG 1 EACH CAP.SPRINK GT SCH ×2 (09:20→16:46)
[2017-10-02] MEDS: TRAMADOL HCL 50 MG TABLET GT SCH ×2 (09:20→20:45)
[2017-10-02] MEDS: LEVETIRACETAM SOL (5 ML) 100 MG/ML UDC NG SCH ×2 (09:20→20:45)
[2017-10-02] MEDS: ZINC SULFATE 220 MG CAPSULE GT SCH (09:20)
[2017-10-02] MEDS: VIT B CMPLX 3/FA/VIT C/BIOTIN 1 TAB TABLET GT SCH (09:20)
[2017-10-02] MEDS: GABAPENTIN 100 MG CAPSULE GT SCH ×2 (09:20→20:45)
[2017-10-02] MEDS: Z GUARD REMEDY 2 OZ OINT TP SCH (09:21)
[2017-10-02] MEDS: HYDROGEL DRESSING 90 GM TUBE TP SCH (09:21)
[2017-10-02] MEDS: LORAZEPAM INJ 2 MG/ML VIAL IV SCH ×2 (09:21→20:53)
[2017-10-02] MEDS: BACITRACIN/POLYMYXIN B 15 GM TUBE TP SCH (09:22)
[2017-10-02] MEDS: FOLIC ACID 1 MG TABLET GT SCH (09:24)
[2017-10-02] MEDS: PROSOURCE / PROSTAT (PYXIS) 30 ML UDC GT SCH ×3 (09:24→16:46)
[2017-10-02] MEDS ORDERED: TPN BAG #30 IV PRN ×7 (10:22)
[2017-10-02] MEDS: PANTOPRAZOLE 40 MG VIAL IV SCH (11:59)
[2017-10-02 12:00] VITALS: BP 137/42
[2017-10-02] MEDS: ACETAMINOPHEN 650 MG/20.3 ML UDC GT PRN (12:04)
--- NOTE | 2017-10-02 12:10 | NUR ---
RN NOTES SPOKE WITH VAISHALI DECKER, CURRENT EVENTS REPORTED. GTF HELD SINCE 5 AM BECAUSE OF HIGH RESIDUAL. PT HAD FEBRILE EPISODE THIS MORNING, COOLING MEASURES PROVIDED. NO LEAKING NOTED AROUND GT SITE.
[2017-10-02] MEDS: SIMETHICONE SUSP 40 MG/0.6 ML BOTTLE GT SCH ×2 (12:38→16:47)
--- NOTE | 2017-10-02 12:40 | NUR ---
RN NOTES SPOKE WITH FAHEEM DECKER, CURRENT EVENTS REPORTED. GTF HELD SINCE 5 AM BECAUSE OF HIGH RESIDUAL. PT HAD FEBRILE EPISODE THIS MORNING, COOLING MEASURES PROVIDED. LATEST TEMP 98.5. PT STILL ON TPN
--- NOTE | 2017-10-02 13:32 | NUR ---
break off worker was asked by [facility] to set up a bioethics meeting. Per Justino and Dr. Olivares, they are able to meet for bioethics before 12pm. break off worker called the patient's daughter Erica Marcus ([phone]) and she stated that she is able to meet with Dr. Olivares and [facility] on Thursday October 05, 2017 at 10:30AM. SW informed her that bioethics meeting will be held in the hospital and she stated that she will attend with her siblings and her mother (the patient's ). [facility]LE and Dr. Olivares informed of bioethics date and time.
--- NOTE | 2017-10-02 14:30 | NUR ---
RN NOTES SPOKE WITH DR SCHWARTZ, CURRENT EVENTS REPORTED. GTF HELD SINCE 5 AM BECAUSE OF HIGH RESIDUAL. PT FEBRILE THIS MORNING, COOLING MEASURES PROVIDED, BLOOD CX AND SPUTUM CX DONE. PT STILL ON TPN, AFEBRILE AT THIS TIME
--- NOTE | 2017-10-02 15:50 | NUR ---
RT NOTE PT RECEIVED ON MECHANICAL VENT WITH NOTED SETTINGS, NO RESPIRATORY DISTRESS NOTED, TXS GIVEN ORDERED NO ADVERSE REACTION NOTED, AMBUBAG AT BEDSIDE, VENT PLUGGED INTO RED OUTLET, DISCONNECT ALARM VERIFIED AND AUDIBLE SXD LARGE AMOUNT OF THICK PALE YELLOW SECRETIONS, PT STABLE AT THIS TIME. Addendum: 10/02/17 at 1555 by REMBERTO GILMORE RT Amended: Links added.
[2017-10-02 16:00] VITALS: BP_SYST 110; BP_DIAS 34; BP_DIAS 45
[2017-10-02] MEDS ORDERED: FEE PK DOSING 1 MIN EA MC ONE (17:24)
[2017-10-02] MEDS: FLUCONAZOLE IN NS 100 MG in PREMIX 1 EA IV SCH ×2 (17:30)
[2017-10-02] MEDS ORDERED: VANCOMYCIN 1 GM in IV D5W 250 ML IV ONE (17:30)
[2017-10-02] MEDS: MEROPENEM 500 MG in IV NS 0.9% 50 ML IV SCH (18:01)
--- NOTE | 2017-10-02 19:30 | NUR ---
LPN CARE MANAGER OPENING NOTES. RECEIVED PATIENT FROM PREVIOUS SHIFT. PATIENT IS AWAKE. UNABLE TO RESPOND VERBALLY. OPENS EYES SPONTANEOUSLY TO STIMULI. NO SIGNS OF RESPIRATORY DISTRESS OR SOB. STOMACH IS DISTENDED. TPN IS RUNNING ON IV SITE ON LEFT UPPER ARM. G-TUBE FEEDING IS ON HOLD DURING ENDORSEMENT. IV ACCESS ON LEFT UPPER ARM IS INTACT WITH NO SIGNS OF COMPLICATIONS. PATIENT IS ON MECHANICAL VENTILATOR WITH CURRENT SETTING. TRACH SITE IS INTACT. ERNESTINA CATH ON RIGHT UPPER CHEST IS INTACT WITH NO SIGNS OF BLEEDING. HOB ELEVATED AT LEAST 30 DEGREES FOR ASPIRATION PRECAUTION.
[2017-10-02 20:00] VITALS: BP_SYST 110; BP_SYST 114; BP_DIAS 30; BP_DIAS 45
[2017-10-02] MEDS: PYRIDOXINE HCL 50 MG TABLET GT SCH (21:24)
--- NOTE | 2017-10-02 23:35 | NUR ---
RN NOTES BLOOD SUGAR FOR 12MN IS 236 MG/DL -8 UNITS OF REGULAR INSULIN GIVEN PER SLIDING SCALE WILL CHECK BLOOD SUGAR AGAIN FOR 6AM.
[2017-10-03] VITALS: BP 156/43
[2017-10-03 04:00] VITALS: BP 159/63
[2017-10-03] MEDS: MEROPENEM 500 MG in IV NS 0.9% 50 ML IV SCH ×2 (05:38→17:45)
[2017-10-03] MEDS: INSULIN REGULAR, HUMAN 100 UNIT/ML 3 ML VIAL SQ PRN ×3 (05:53→17:48)
[2017-10-03] MEDS: BLOOD SUGAR DIAGNOSTIC 1 EACH STRIP IN SCH ×3 (05:54→17:44)
--- NOTE | 2017-10-03 06:37 | NUR ---
POWER SCREWDRIVER OPERATOR CLOSING NOTES. PATIENT IS AWAKE. KEPT CLEAN AND COMFORTABLE. HOB ELEVATED FOR ASPIRATION PRECAUTION. GT FEEDING STILL ON HOLD RELATED TO RESIDUALS. CALL LIGHT WITHIN REACH. ON MECHANICAL VENTILATOR WITH NO SIGNS OF SOB. TPN BEING INFUSED TO LEFT UPPER ARM IV ACCESS WITH NO SIGNS OF COMPLICATIONS. SAFETY MEASURES PROVIDED.
[2017-10-03] MEDS: ACETAMINOPHEN 650 MG/20.3 ML UDC GT PRN ×2 (06:52→12:03)
[2017-10-03 06:53] LABS: HEMATOCRIT 28 % (39-51); HEMOGLOBIN 9.3 g/dL (13.5-17.5); LYMPHOCYTES # (AUTO) 0.1 /CMM (0.8-4.8); MEAN CORPUSCULAR HEMOGLOBIN 34 PG (26.0-33.0); MEAN CORPUSCULAR HGB CONC 34 g/dl (31.0-36.0); MEAN CORPUSCULAR VOLUME 102 fL (80-96); MONOCYTES % (AUTO) 0.3 % (2.0-12.0); NEUTROPHILS # (AUTO) 9.3 /CMM (1.8-8.9); NEUTROPHILS % (AUTO) 98.7 % (43.0-81.0); RDW COEFFICIENT OF VARIATION 20.8 (11.5-15.0); RED BLOOD CELL COUNT(AUTO) 2.73 MIL/uL (4.5-6.0); WHITE BLOOD COUNT (AUTO) 9.4 K/uL (4.3-11.0)
[2017-10-03 07:06] LABS: CALCIUM, SERUM 8.9 mg/dL (8.5-10.1); CREATININE 5.1 mg/dL (0.6-1.3); MAGNESIUM 2.3 mg/dL (1.8-2.4); PHOSPHORUS 4.1 mg/dL (2.5-4.9); POTASSIUM 4.1 mmol/L (3.5-5.1)
[2017-10-03 07:10] LABS: PLATELET COUNT (AUTO) 19 /CMM (150-450)
--- NOTE | 2017-10-03 07:15 | NUR ---
RN INITIAL NOTES: REC'D PT ON BED, NOT IN ANY DISTRESS. HAS TRACH ON MECH VENT, SATING AT 100%. ON TELEMONITOR, SR. HAS PEG PATENT & INTACT, OFF TUBE FEEDING AT THIS TIME. HAS JOANN PICC LINE PATENT & INTACT W/ TPN (BAG #31) X 40 CC/HR INFUSING WELL, NO S/SX OF INFECTION/INFILTRATION NOTED. PROVIDED COMFORT & SAFETY MEASURES. BED KEPT LOW & IN LOCKED POS. CALL LIGHT PLACED W/IN REACH. REVERSE ISOLATION OBSERVED. WILL CONTINUE TO MONITOR AND ATTEND PT NEEDS. Addendum: 10/03/17 at 1753 by DEA CÁRDENAS RN CORRECTION: TPN (BAG #30) IS CURRENTLY RUNNING AT 40 CC/HR.
[2017-10-03] MEDS: ACETYLCYSTEINE 20% SOLN 800 MG/4 ML VIAL NEB SCH ×3 (07:26→23:30)
[2017-10-03 08:00] VITALS: BP 136/75
--- NOTE | 2017-10-03 08:00 | NUR ---
RN NOTES: CALLED DR. KANG (MARKETING PROJECT MANAGER OF DR. SCHWARTZ) RE: PLATELET CT 19. AWAITING CALL. BACK. Addendum: 10/03/17 at 1543 by DEA CÁRDENAS RN ADDENDUM: DR. TURNER WELL DR. VELA MADE AWARE OF PLATELET 19 W/ NO NEW ORDERS.
[2017-10-03] MEDS: ZINC SULFATE 220 MG CAPSULE GT SCH (08:33)
[2017-10-03] MEDS: SEVELAMER CARBONATE 0.8 GM POWD.PACK GT SCH ×3 (08:33→21:08)
[2017-10-03] MEDS: LORAZEPAM INJ 2 MG/ML VIAL IV SCH ×2 (08:33→21:07)
[2017-10-03] MEDS: TRAMADOL HCL 50 MG TABLET GT SCH ×2 (08:33→21:08)
[2017-10-03] MEDS: LEVETIRACETAM SOL (5 ML) 100 MG/ML UDC NG SCH ×2 (08:33→21:07)
[2017-10-03] MEDS: LACTOBACILLUS RHAMNOSUS GG 1 EACH CAP.SPRINK GT SCH ×2 (08:33→16:11)
[2017-10-03] MEDS: HYDROGEL DRESSING 90 GM TUBE TP SCH (08:34)
[2017-10-03] MEDS: VIT B CMPLX 3/FA/VIT C/BIOTIN 1 TAB TABLET GT SCH (08:34)
[2017-10-03] MEDS: FOLIC ACID 1 MG TABLET GT SCH (08:34)
[2017-10-03] MEDS: Z GUARD REMEDY 2 OZ OINT TP SCH (08:34)
[2017-10-03] MEDS: PROSOURCE / PROSTAT (PYXIS) 30 ML UDC GT SCH ×3 (08:34→16:11)
[2017-10-03] MEDS: SIMETHICONE SUSP 40 MG/0.6 ML BOTTLE GT SCH ×2 (08:35→16:11)
[2017-10-03] MEDS: BACITRACIN/POLYMYXIN B 15 GM TUBE TP SCH (08:35)
[2017-10-03] MEDS: GABAPENTIN 100 MG CAPSULE GT SCH ×2 (08:38→21:08)
--- NOTE | 2017-10-03 09:00 | NUR ---
JAMIE NOTES: PT STARTED ON HEMODIALYSIS C/O ELAINE. Addendum: 10/03/17 at 1542 by DEA CÁRDENAS RN ADDENDUM: PT TOLERATED HD W/ 2L OUTPUT.
[2017-10-03 09:17] LABS: BAND % (MANUAL) 7 % (0.0-5.0); LYMPHOCYTES % (MANUAL) 7 % (16-48); MONOCYTES % (MANUAL) 1 % (0-11.0); NEUTROPHILS % (MANUAL) 85 (42-76)
[2017-10-03] MEDS: diphenhydrAMINE HCL 50 MG/ML VIAL IV PRN (11:04)
[2017-10-03] MEDS: LORAZEPAM INJ 2 MG/ML VIAL IV PRN (11:05)
[2017-10-03] MEDS: PANTOPRAZOLE 40 MG VIAL IV SCH (11:52)
[2017-10-03 12:00] VITALS: BP 105/55
[2017-10-03] MEDS ORDERED: TPN BAG #31 IV PRN ×7 (14:30)
[2017-10-03 16:00] VITALS: BP 110/41
[2017-10-03] MEDS: VANCOMYCIN 500 MG in IV D5W 100 ML IV PRN (16:13)
[2017-10-03] MEDS: FLUCONAZOLE IN NS 100 MG in PREMIX 1 EA IV SCH ×2 (16:49)
--- NOTE | 2017-10-03 18:35 | NUR ---
RN CLOSING NOTES: NO ACUTE CHANGES NOTED W/IN SHIFT. PT TOLERATED CURRENT MECH VENT SETTINGS VIA TRACH. ON TELEMONITOR, STILL SR. PEG KEPT PATENT & INTACT, RESTARTED ON TUBE FEEDING NOVASOURCE AT 20 CC/HR, MONITORING FOR ANY RESIDUAL. JOANN PICC LINE KEPT PATENT & INTACT W/ TPN (BAG 31) X 40 CC/HR INFUSING WELL, NO S/SX OF INFECTION/INFILTRATION NOTED. COOLING MEASURES RENDERED. KEPT WELL RESTED. SECRETIONS SUCTIONED. BED KEPT LOW & IN LOCKED POS. CALL LIGHT PLACED W/IN REACH. REVERSE ISOLATION OBSERVED. WILL ENDORSE TO PM RN FOR KRYS.
[2017-10-03 20:00] VITALS: BP 103/57
[2017-10-03] MEDS: PYRIDOXINE HCL 50 MG TABLET GT SCH (21:08)
[2017-10-04] VITALS (7 sets, daily range): BP systolic 100–137; BP diastolic 50–70
[2017-10-04] MEDS: BLOOD SUGAR DIAGNOSTIC 1 EACH STRIP IN SCH ×5 (00:27→23:56)
[2017-10-04] MEDS: INSULIN REGULAR, HUMAN 100 UNIT/ML 3 ML VIAL SQ PRN ×4 (00:31→18:00)
[2017-10-04] MEDS: MEROPENEM 500 MG in IV NS 0.9% 50 ML IV SCH ×2 (05:31→17:41)
--- NOTE | 2017-10-04 07:30 | NUR ---
TEL RN NOTES RECEIVED PT IN BED, AWAKE, ALERT, ABLE TO FOLLOW SIMPLE COMMANDS, ON PORTEX #8, VENT DEPENDENT, SETTINGS ORDERED, NOT IN ANY DISTRESS, UNLABORED BREATHING, ON BED, WITH 100% O2 SATURATION.TELEMETRY READS SR HR 83 , NO SIGNS OF DISCOMFORT, TPN ONGOING BAG #31 AT 40 ML/HR TO JOANN PICC LINE, SITE CLEAR, CDI DRESSING, RESTARTED GT FEEDING OF NOVASOURCE AT 20ML/HR RATE, RESIDUAL AT 5 ML/HR, SEE NURSING FLOWSHEET FOR SKIN ISSUES, DVT PUMP IN USED FOR DVT PROPHYLAXIS.ON REVERSE ISOLATION FOR LOW WBC.WILL CONTINUE TO MONITOR STATUS.
[2017-10-04] MEDS: ACETYLCYSTEINE 20% SOLN 800 MG/4 ML VIAL NEB SCH ×2 (07:43→15:55)
--- NOTE | 2017-10-04 09:30 | NUR ---
RN NOTES ADMINISTERED DUE MEDS.
[2017-10-04] MEDS: LEVETIRACETAM SOL (5 ML) 100 MG/ML UDC NG SCH ×2 (10:00→21:41)
[2017-10-04] MEDS: GABAPENTIN 100 MG CAPSULE GT SCH ×2 (10:01→21:41)
[2017-10-04] MEDS: LACTOBACILLUS RHAMNOSUS GG 1 EACH CAP.SPRINK GT SCH ×2 (10:01→16:37)
[2017-10-04] MEDS: ZINC SULFATE 220 MG CAPSULE GT SCH (10:01)
[2017-10-04] MEDS: VIT B CMPLX 3/FA/VIT C/BIOTIN 1 TAB TABLET GT SCH (10:01)
[2017-10-04] MEDS: TRAMADOL HCL 50 MG TABLET GT SCH ×2 (10:01→21:42)
[2017-10-04] MEDS: PROSOURCE / PROSTAT (PYXIS) 30 ML UDC GT SCH ×3 (10:01→16:40)
[2017-10-04] MEDS: FOLIC ACID 1 MG TABLET GT SCH (10:01)
[2017-10-04] MEDS: SEVELAMER CARBONATE 0.8 GM POWD.PACK GT SCH ×3 (10:01→21:42)
[2017-10-04] MEDS: LORAZEPAM INJ 2 MG/ML VIAL IV SCH ×2 (10:02→21:42)
[2017-10-04] MEDS: Z GUARD REMEDY 2 OZ OINT TP SCH (10:02)
[2017-10-04] MEDS: HYDROGEL DRESSING 90 GM TUBE TP SCH (10:02)
[2017-10-04] MEDS: SIMETHICONE SUSP 40 MG/0.6 ML BOTTLE GT SCH ×2 (10:09→16:38)
[2017-10-04] MEDS: BACITRACIN/POLYMYXIN B 15 GM TUBE TP SCH (10:09)
[2017-10-04] MEDS: RENAL NOVASOURCE 1,000 ML BOTTLE GT PRN (10:20)
[2017-10-04] MEDS: PANTOPRAZOLE 40 MG VIAL IV SCH (10:32)
[2017-10-04 12:14] LABS: CALCIUM, SERUM 8.8 mg/dL (8.5-10.1); CREATININE 4.8 mg/dL (0.6-1.3); POTASSIUM 3.9 mmol/L (3.5-5.1)
--- NOTE | 2017-10-04 12:19 | NUR ---
RN NOTES ACCUCHECK DONE. BS 236 MG/DL. ADMINISTERED 8 UNITS HUM R PER SS.
[2017-10-04] MEDS ORDERED: TPN BAG #32 IV PRN ×7 (14:00)
--- NOTE | 2017-10-04 15:30 | NUR ---
JAMIE NOTES REPORT GIVEN TO FIOR FOR KRYS. Addendum: 10/04/17 at 1543 by MIC SANTANA RN CORRECTION. REPORT GIVEN TO RUSLAN FOR KRYS.
[2017-10-04] MEDS: FLUCONAZOLE IN NS 100 MG in PREMIX 1 EA IV SCH ×2 (16:37)
[2017-10-04] MEDS: PIPERACILLIN /TAZOBACTAM 2.25 G in IV D5W 50 ML IV SCH ×2 (18:19→23:56)
--- NOTE | 2017-10-04 18:41 | NUR ---
TELE/RN CLOSING NOTE PATIENT IN BED IN STABLE CONDITION. A/O X1. NON VERBAL. NO SIGNS OF ACUTE DISTRESS. NO COMPLAIN OR PAIN OR DISCOMFORT. ON TRACH AND VENT DEPENDENT TOLERATING WELL. ON TELE MONITOR WITH SR IN 80'S. ON G TUBE FEEDING NOVASOURCE AT 20ML/HR. G TUBE FEEDING HELD AROUND 6PM SECONDARY RESIDUAL NOTED 120ML. ALL NEEDS ATTENDED TO AT THIS TIME. CALL LIGHT WITHIN REACH. WILL ENDORSE TO NEXT SHIFT FOR CONTINUITY OF CARE.
--- NOTE | 2017-10-04 20:00 | NUR ---
TIER LIFT OPERATOR NOTE RECEIVED PT IN BED WITH EYES CLOSED. AROUSABLE. A/O X 1 NON VERBAL. NO DISTRESS OR DISCOMFORT NOTED. NO S/S OF PAIN NOTED. ON TRACH/VENT TOLERATING THE SETTINGS WELL. ON TELE SR HR 84. GT INTACT AND PATENT RESIDUAL STILL 100 ML. HELD THE FEEDING WILL CONTINUE TO MONITOR. JOANN PICC LINE WITH TPN @ 40 ML/HR INFUSING WELL. NO S/S OF HYPO OR HYPERGLYCEMIA NOTED. KEPT HOB ELEVATED. REPOSIITON HIM FOR SKIN MANAGEMENT. ALL NEEDS ATTENDED. SIDE RAILS UP X 2 AND CALL LIGHT WITHIN REACH. CONTINUE TO MONITOR HIM.
--- NOTE | 2017-10-04 20:10 | NUR ---
FIRER PORTABLE BOILER NOTE COOLING BLANKET WAS OFF. TURNED IT BACK ON AGAIN.
--- NOTE | 2017-10-04 21:00 | NUR ---
SHRIMP PEELER NOTE RECHECK GTF RESIDUAL 0 ML NOTED. RESUMED THE GTF ORDERED. CONTINUE TO MONITOR HIM. SUCTIONED HIM FREQUENTLY.
[2017-10-04] MEDS: PYRIDOXINE HCL 50 MG TABLET GT SCH (21:41)
[2017-10-05] VITALS (9 sets, daily range): BP systolic 102–141; BP diastolic 50–68
[2017-10-05] MEDS: INSULIN REGULAR, HUMAN 100 UNIT/ML 3 ML VIAL SQ PRN ×3 (00:06→18:00)
[2017-10-05] MEDS: ACETYLCYSTEINE 20% SOLN 800 MG/4 ML VIAL NEB SCH ×4 (00:18→23:09)
[2017-10-05] MEDS: PIPERACILLIN /TAZOBACTAM 2.25 G in IV D5W 50 ML IV SCH ×3 (05:29→17:21)
[2017-10-05] MEDS: BLOOD SUGAR DIAGNOSTIC 1 EACH STRIP IN SCH ×4 (05:29→23:56)
[2017-10-05] MEDS: MEROPENEM 500 MG in IV NS 0.9% 50 ML IV SCH ×2 (05:57→17:22)
--- NOTE | 2017-10-05 06:49 | NUR ---
JUVENILE OFFICER NOTE PT IN BED AWAKE. NO DISTRESS OR DISCOMFORT NOTED. TPN AND GTF INFUSING WELL. 20 ML RESIDUAL NOTED. REPOSITION HIM Q2H. KEPT HIM DRY AND CLEAN. ALL NEEDS ATTENDED. WILL ENDORSE TO DAY SHIFT NURSE FOR CONTINUE TO CARE.
[2017-10-05 07:02] LABS: EOSINOPHILS % (AUTO) 1.1 % (0.0-6.0); HEMATOCRIT 24 % (39-51); HEMOGLOBIN 7.8 g/dL (13.5-17.5); LYMPHOCYTES # (AUTO) 0.3 /CMM (0.8-4.8); LYMPHOCYTES % (AUTO) 8.3 % (20.0-44.0); MEAN CORPUSCULAR HEMOGLOBIN 34 PG (26.0-33.0); MEAN CORPUSCULAR HGB CONC 33 g/dl (31.0-36.0); MEAN CORPUSCULAR VOLUME 101 fL (80-96); MONOCYTES # (AUTO) 0.3 /CMM (0.1-1.30); MONOCYTES % (AUTO) 7.2 % (2.0-12.0); NEUTROPHILS # (AUTO) 2.9 /CMM (1.8-8.9); NEUTROPHILS % (AUTO) 83.4 % (43.0-81.0); RDW COEFFICIENT OF VARIATION 21.2 (11.5-15.0); RED BLOOD CELL COUNT(AUTO) 2.31 MIL/uL (4.5-6.0); WHITE BLOOD COUNT (AUTO) 3.5 K/uL (4.3-11.0)
[2017-10-05 07:31] LABS: CALCIUM, SERUM 8.9 mg/dL (8.5-10.1); CREATININE 4.9 mg/dL (0.6-1.3); MAGNESIUM 2.6 mg/dL (1.8-2.4); PHOSPHORUS 4.1 mg/dL (2.5-4.9)
[2017-10-05 07:57] LABS: PLATELET COUNT (AUTO) 14 /CMM (150-450)
[2017-10-05] MEDS: PROSOURCE / PROSTAT (PYXIS) 30 ML UDC GT SCH ×3 (09:00→17:21)
[2017-10-05] MEDS: BACITRACIN/POLYMYXIN B 15 GM TUBE TP SCH (09:00)
[2017-10-05] MEDS: Z GUARD REMEDY 2 OZ OINT TP SCH (09:00)
[2017-10-05 09:32] LABS: BAND % (MANUAL) 3 % (0.0-5.0); LYMPHOCYTES % (MANUAL) 2 % (16-48); MONOCYTES % (MANUAL) 5 % (0-11.0); NEUTROPHILS % (MANUAL) 90 (42-76)
[2017-10-05] MEDS: FOLIC ACID 1 MG TABLET GT SCH (09:45)
[2017-10-05] MEDS: VIT B CMPLX 3/FA/VIT C/BIOTIN 1 TAB TABLET GT SCH (09:45)
[2017-10-05] MEDS: HYDROGEL DRESSING 90 GM TUBE TP SCH (09:46)
[2017-10-05] MEDS: ZINC SULFATE 220 MG CAPSULE GT SCH (09:46)
[2017-10-05] MEDS: LEVETIRACETAM SOL (5 ML) 100 MG/ML UDC NG SCH ×2 (09:46→21:10)
[2017-10-05] MEDS: GABAPENTIN 100 MG CAPSULE GT SCH ×2 (09:46→21:11)
[2017-10-05] MEDS: TRAMADOL HCL 50 MG TABLET GT SCH ×2 (09:46→21:11)
[2017-10-05] MEDS: LORAZEPAM INJ 2 MG/ML VIAL IV SCH ×2 (09:47→21:10)
[2017-10-05] MEDS: LACTOBACILLUS RHAMNOSUS GG 1 EACH CAP.SPRINK GT SCH ×2 (09:49→17:20)
[2017-10-05] MEDS: SEVELAMER CARBONATE 0.8 GM POWD.PACK GT SCH ×3 (09:52→21:11)
--- NOTE | 2017-10-05 10:11 | NUR ---
WOUND CARE CONSULT: PT SEEN FOR LESION TO LEFT EAR WITH PARTIAL THICKNESS OPENING. RECOMMENDATIONS MADE AND DISCUSSED WITH NURSING STAFF AND SURGICAL N.P. WILL SEE PRN. BARKER IN AGREEMENT WITH PLAN OF CARE. Addendum: 10/05/17 at 1012 by CHANDU GONCALVES WNDNU Amended: Links added.
--- NOTE | 2017-10-05 10:52 | NUR ---
Bioethics meeting was held today at 10:30AM. Present was Dr. Marshall Mckeon- Head of Bioethics committee, patient's Eloy Cano, and patient's daughters Erica (by phone), Yusra, and Sarahi, and patient's son-in-law Ana. Dr. Olivares stated that he spoke to the patient's doctors and that there are two options available for the family. He explained to them that the first option is to do nothing and initiate hospice and comfort care or to fix the fistula. He stated that IV access sites are wearing out and patient will have no more access lines as more time passes. He stated that if the family wants to take action, now is a good time to take it. He noted that as more time passes, likelihood about the possibility of surgery being able to be done is low. Family asked if the surgery is done, what the timeframe would look like and Dr. Olivares stated that once consent is obtained he can get the ball rolling with the patient's doctors and schedule the surgery for possibly this week. The family stated that they want some time to think about it but will come up with an answer today. Per the patient's daughters, bethany Arnett will follow up with the psychiatric social worker supervisor or the patient's nurses today with their decision.
[2017-10-05 11:11] LABS: HEPATITIS Be AB Negative (Negative)
--- NOTE | 2017-10-05 11:15 | NUR ---
Received a call from daughter Sarahi Marcus who stated that the family had a discussion and they want to proceed forward with the surgery. SW informed her that the patient's needs to sign the consent form. They stated they were still in the hospital and will talk to the patient's nurse for the consent form. Informed the patient's nurse Radha regarding the family's decision and they will obtain consent form for the surgery and will contact Dr. Olivares for further orders.
[2017-10-05] MEDS: SIMETHICONE SUSP 40 MG/0.6 ML BOTTLE GT SCH ×2 (12:43→17:21)
[2017-10-05] MEDS: PANTOPRAZOLE 40 MG VIAL IV SCH (12:44)
[2017-10-05] MEDS ORDERED: TPN BAG #33 IV PRN ×7 (15:00)
[2017-10-05] MEDS: METOCLOPRAMIDE HCL 10 MG/2 ML VIAL IV SCH ×3 (15:23→23:58)
[2017-10-05] MEDS: FLUCONAZOLE IN NS 100 MG in PREMIX 1 EA IV SCH ×2 (17:21)
--- NOTE | 2017-10-05 19:20 | NUR ---
PT RECEIVED ON MECHANICAL VENT WITH NOTED SETTINGS, TXS GIVEN ORDERED NO ADVERSE REACTION NOTED, AMBUBAG AT BEDSIDE, VENT PLUGGED INTO RED OUTLET, ALARM CHECKED AND AUDIBLE, SXD MODERATE AMOUNT OF THICK PALE YELLOW SECRETIONS,NO RESPIRATORY DISTRESS NOTED. WILL CONTINUE TO MONITOR THE PATIENT.
[2017-10-05] MEDS: ACETAMINOPHEN 650 MG/20.3 ML UDC GT PRN (20:01)
[2017-10-05] MEDS: PYRIDOXINE HCL 50 MG TABLET GT SCH (21:10)
[2017-10-06] VITALS (7 sets, daily range): BP systolic 116–133; BP diastolic 57–77
[2017-10-06] MEDS: INSULIN REGULAR, HUMAN 100 UNIT/ML 3 ML VIAL SQ PRN ×5 (00:01→23:46)
--- NOTE | 2017-10-06 02:45 | NUR ---
RN NOTES 1 HOUR AFTER PLATELETS TRANSFUSED, LEVEL RECHECKED, NOW 15 FROM 14, DR TURNER NOTIFIED REQUESTED, WITH NEW ORDER FOR 1 UNIT OF HLA MATCHED PLATELETS TO BE ADMINISTERED, PLATELET LEVEL TO BE RECHECKED 1 HOUR AFTER INFUSION. ALL NEW ORDERS READ BACK FOR CLARIFICATION. WILL CARRY OUT ALL NEW ORDERS AND CONTINUE TO CLOSELY MONITOR
--- NOTE | 2017-10-06 03:45 | NUR ---
RN NOTES SPOKE TO BLOOD BANK REGARDING ORDER FOR HLA MATCHED PLATELETS. PER BLOOD BANK, THE [facility] PLATELET [facility] OPENS AT 7AM. PER BLOOD BANK, THEY WILL FOLLOW UP @ 0200 WHEN THE LAB OPENS TO OBTAIN THE PLATELETS SOON POSSIBLE. WILL TRANSFUSE PLATELETS WHEN AVAILABLE
[2017-10-06] MEDS: BLOOD SUGAR DIAGNOSTIC 1 EACH STRIP IN SCH ×5 (05:19→23:54)
[2017-10-06] MEDS: MEROPENEM 500 MG in IV NS 0.9% 50 ML IV SCH ×2 (05:27→17:57)
[2017-10-06] MEDS: METOCLOPRAMIDE HCL 10 MG/2 ML VIAL IV SCH ×4 (05:29→23:50)
[2017-10-06] MEDS: ACETAMINOPHEN 650 MG/20.3 ML UDC GT PRN (05:30)
--- NOTE | 2017-10-06 07:00 | NUR ---
RN CLOSING NOTES PATIENT RESTING IN BED, APPEARS COMFORTABLE. PATIENT ENDORSED TO THE AM SHIFT NURSE FOR KRYS
[2017-10-06] MEDS: ACETYLCYSTEINE 20% SOLN 800 MG/4 ML VIAL NEB SCH ×3 (07:39→22:49)
[2017-10-06] MEDS: LACTOBACILLUS RHAMNOSUS GG 1 EACH CAP.SPRINK GT SCH ×2 (08:15→16:59)
[2017-10-06] MEDS: VIT B CMPLX 3/FA/VIT C/BIOTIN 1 TAB TABLET GT SCH (08:15)
[2017-10-06] MEDS: FOLIC ACID 1 MG TABLET GT SCH (08:15)
[2017-10-06] MEDS: LEVETIRACETAM SOL (5 ML) 100 MG/ML UDC NG SCH ×2 (08:16→20:56)
[2017-10-06] MEDS: SEVELAMER CARBONATE 0.8 GM POWD.PACK GT SCH ×3 (08:16→20:56)
[2017-10-06] MEDS: ZINC SULFATE 220 MG CAPSULE GT SCH (08:16)
[2017-10-06] MEDS: TRAMADOL HCL 50 MG TABLET GT SCH ×2 (08:16→20:56)
[2017-10-06 08:20] LABS: CALCIUM, SERUM 8.9 mg/dL (8.5-10.1); CREATININE 4.7 mg/dL (0.6-1.3); POTASSIUM 4.3 mmol/L (3.5-5.1)
[2017-10-06] MEDS: GABAPENTIN 100 MG CAPSULE GT SCH ×2 (08:21→20:55)
[2017-10-06] MEDS: BACITRACIN/POLYMYXIN B 15 GM TUBE TP SCH (08:22)
[2017-10-06] MEDS: HYDROGEL DRESSING 90 GM TUBE TP SCH (08:22)
[2017-10-06] MEDS: SIMETHICONE SUSP 40 MG/0.6 ML BOTTLE GT SCH ×2 (08:22→17:00)
[2017-10-06] MEDS: Z GUARD REMEDY 2 OZ OINT TP SCH (08:22)
[2017-10-06] MEDS: PROSOURCE / PROSTAT (PYXIS) 30 ML UDC GT SCH ×3 (08:31→16:59)
[2017-10-06] MEDS: LORAZEPAM INJ 2 MG/ML VIAL IV SCH ×2 (08:50→20:56)
[2017-10-06] MEDS: RENAL NOVASOURCE 1,000 ML BOTTLE GT PRN (11:46)
[2017-10-06] MEDS: PANTOPRAZOLE 40 MG VIAL IV SCH (11:46)
--- NOTE | 2017-10-06 14:35 | NUR ---
SPOKE TO FAHEEM Valera NP ORDERED OK TO TAPER TPN PER PHARMACY AND DIETARY. Addendum: 10/06/17 at 1749 by SHIMON SERRANO RN TAPERING TPN TO 20ML/HR
[2017-10-06] MEDS: CLONIDINE HCL 0.1MG/24H PTWK 1 EA PATCH TD SCH (16:17)
[2017-10-06] MEDS: FLUCONAZOLE IN NS 100 MG in PREMIX 1 EA IV SCH ×2 (17:00)
--- NOTE | 2017-10-06 17:00 | NUR ---
RN NOTE TPN STOPPED. BS 244.
[2017-10-06] MEDS: VANCOMYCIN 500 MG in IV D5W 100 ML IV PRN (18:40)
--- NOTE | 2017-10-06 19:20 | NUR ---
UNDERWRITING SPECIALIST OPENING NOTES RECEIVED PATIENT AND REPORT FROM PREVIOUS SHIFT. PATIENT IS IN BED WITH HOB ELEVATED. GTUBE FEEDING RUNNING AT 25ML PER HOUR. CHECKED GT RESIDUAL WITH 5ML. HOB ELEVATED AT 35 DEGREES. IV ACCESS INTACT ON LEFT UPPER ARM. ON MECHANICAL VENTILATOR WITH NO SIGNS OF SOB. TRACH INTACT AND IN PLACE.
--- NOTE | 2017-10-06 20:00 | NUR ---
CHECKED PATIENT AWAKE WITH HOB ELEVATED X 30 DEGREES. CHECKED GTUBE RESIDUALS AT 5ML. NO SIGNS OF NAUSEA AND VOMITTING.
[2017-10-06] MEDS: PYRIDOXINE HCL 50 MG TABLET GT SCH (21:07)
[2017-10-07] VITALS (7 sets, daily range): BP systolic 105–150; BP diastolic 50–75
--- NOTE | 2017-10-07 | NUR ---
RN NOTES PATIENT'S GASTRIC RESIDUALS 25CC AT THIS TIME, TOLERATING GTF FAIRLY. WILL CONTINUE TO CLOSELY MONITOR THE PATIENT
[2017-10-07] MEDS: MEROPENEM 500 MG in IV NS 0.9% 50 ML IV SCH ×2 (05:12→18:13)
[2017-10-07] MEDS: METOCLOPRAMIDE HCL 10 MG/2 ML VIAL IV SCH ×3 (05:38→17:48)
[2017-10-07] MEDS: BLOOD SUGAR DIAGNOSTIC 1 EACH STRIP IN SCH ×2 (06:00→18:13)
--- NOTE | 2017-10-07 06:00 | NUR ---
SECURITY INTELLIGENCE ANALYST NOTES. FOUND PATIENT GTUBE DISLODGED FROM STOMA. INSERTED VÁZQUEZ 16F TO KEEP STOMA OPEN. PATIENT IS ALERT AND AWAKE WITH NO SIGNS OF DISTRESSED. CHECKED BLOOD SUGAR FOR ROUTINE ACCUCHECK. BS AT 259. CALLED DR HERANNDEZ GI DOCTOR, LEFT TELEPHONE MESSAGE. AWAITING CALL BACK.
--- NOTE | 2017-10-07 06:35 | NUR ---
ROASTER HELPER NOTES DR HERNANDEZ CALLED BACK. RECEIVED INSTRUCTIONS TO PUT IN NEW GTUBE IN WHOLE AND ORDER GASTROFERIN CONTRAST WITH KUB TO VERIFY PLACEMENT. ALSO PER MD. HE WILL GET A CONSENT FOR EGD FROM THE FAMILY. ORDERS NOTED AND WILL CARRY OUT.
--- NOTE | 2017-10-07 07:45 | NUR ---
RN NOTES CALLED AND SPOKE TO PATIENT'S DAUGHTER BERHANE CLOLIER TO NOTIFY REGARDING GT DISLODGEMENT, AND NEW ORDER TO OBTAIN CONSENT FOR EGD. PATIENT'S DAUGHTER GAVE TELEPHONE CONSENT, CONFIRMED/WITNESSED WITH NURSE ELY. DAY SHIFT NURSE MADE AWARE THAT CONSENTS HAVE BEEN SIGNED AND PLACED IN CHART.
--- NOTE | 2017-10-07 08:00 | NUR ---
FINANCIAL INTERNSHIP NOTE REINSERTED G-TUBE. ORDERED KUB STAT TO VERIFY PLACEMENT. PT STABLE.
[2017-10-07 08:04] LABS: CALCIUM, SERUM 9.1 mg/dL (8.5-10.1); CREATININE 5.1 mg/dL (0.6-1.3)
[2017-10-07] MEDS: ACETYLCYSTEINE 20% SOLN 800 MG/4 ML VIAL NEB SCH ×3 (08:14→23:17)
[2017-10-07] MEDS ORDERED: DIATR MEGLU/DIATRIZOATE SODIUM 30 ML BOTTLE (GASTROGRAPHIN) ONE (08:31)
[2017-10-07] MEDS: LEVETIRACETAM SOL (5 ML) 100 MG/ML UDC NG SCH ×2 (09:00→21:22)
[2017-10-07] MEDS: HYDROGEL DRESSING 90 GM TUBE TP SCH (09:00)
[2017-10-07] MEDS: GABAPENTIN 100 MG CAPSULE GT SCH ×2 (09:00→21:22)
[2017-10-07] MEDS: SIMETHICONE SUSP 40 MG/0.6 ML BOTTLE GT SCH ×2 (09:00→16:32)
[2017-10-07] MEDS: VIT B CMPLX 3/FA/VIT C/BIOTIN 1 TAB TABLET GT SCH (09:00)
[2017-10-07] MEDS: SEVELAMER CARBONATE 0.8 GM POWD.PACK GT SCH ×3 (09:00→21:22)
[2017-10-07] MEDS: PROSOURCE / PROSTAT (PYXIS) 30 ML UDC GT SCH ×3 (09:00→16:32)
[2017-10-07] MEDS: LACTOBACILLUS RHAMNOSUS GG 1 EACH CAP.SPRINK GT SCH ×2 (09:00→16:33)
[2017-10-07] MEDS: ZINC SULFATE 220 MG CAPSULE GT SCH (09:00)
[2017-10-07] MEDS: FOLIC ACID 1 MG TABLET GT SCH (09:00)
[2017-10-07] MEDS: TRAMADOL HCL 50 MG TABLET GT SCH ×2 (09:00→21:22)
[2017-10-07] MEDS: BACITRACIN/POLYMYXIN B 15 GM TUBE TP SCH (09:00)
[2017-10-07] MEDS: LORAZEPAM INJ 2 MG/ML VIAL IV SCH ×3 (09:31→22:09)
--- NOTE | 2017-10-07 11:26 | NUR ---
SEAM STEAMER NOTE SPOKE TO FAHEEM Valera NP ORDERERED TO START FEEDING GT IN PLACE.
[2017-10-07] MEDS: RENAL NOVASOURCE 1,000 ML BOTTLE GT PRN (12:13)
[2017-10-07] MEDS: PANTOPRAZOLE 40 MG VIAL IV SCH (12:24)
[2017-10-07] MEDS: Z GUARD REMEDY 2 OZ OINT TP SCH (12:24)
[2017-10-07] MEDS: INSULIN REGULAR, HUMAN 100 UNIT/ML 3 ML VIAL SQ PRN ×2 (12:37→17:52)
--- NOTE | 2017-10-07 15:03 | NUR ---
COMPACTING MACHINE OPERATOR/TENDER NOTE CALLED DAUGHTER AND RECEIVED CONSENT FOR US GUIDED PARACENTESIS. WITNESS FOR Rica Ren RN.
[2017-10-07] MEDS: FLUCONAZOLE IN NS 100 MG in PREMIX 1 EA IV SCH ×2 (16:33)
[2017-10-07] MEDS: VANCOMYCIN 500 MG in IV D5W 100 ML IV PRN (19:36)
--- NOTE | 2017-10-07 21:00 | NUR ---
TELE-1/COT ASSEMBLER GTUBE DRESSED PER NEW MD ORDER. OSTOMY ADHESIVE UNDER GT BUTTRESS, DRAIN DRESSING PLACED ON TOP, SECURED WITH PAPER TAPE. WILL CONTINUE TO MONITOR.
[2017-10-07] MEDS: PYRIDOXINE HCL 50 MG TABLET GT SCH (21:22)
[2017-10-08] VITALS (9 sets, daily range): BP systolic 89–158; BP diastolic 59–79
[2017-10-08] MEDS: BLOOD SUGAR DIAGNOSTIC 1 EACH STRIP IN SCH ×4 (00:09→17:16)
[2017-10-08] MEDS: INSULIN REGULAR, HUMAN 100 UNIT/ML 3 ML VIAL SQ PRN ×4 (00:13→17:16)
[2017-10-08] MEDS: MEROPENEM 500 MG in IV NS 0.9% 50 ML IV SCH ×2 (06:15→17:16)
[2017-10-08] MEDS: METOCLOPRAMIDE HCL 10 MG/2 ML VIAL IV SCH ×2 (06:16)
--- NOTE | 2017-10-08 07:00 | NUR ---
TELE NOTES RECEIVED PATIENT ON BED, OBTUNDED, TRACH/ VENT DEPENDENT, TRACH CARE DONE ,TOLERATING CURRENT VENT SETTING WELL, ON TELE SR , HR IN 70'S, NOVASOURCE AT 25CC/HR RUNNING VIA G TUBE WELL , NO RESIDUAL NOTED, L UPPER ARM PICC LINE SITE CDI, SR UP x3, CALL LIGHT WITHIN EASY REACH, BED LOCKED AND IN LOWEST POSITION , CONTINUE TO MONITOR .
[2017-10-08 07:36] LABS: CALCIUM, SERUM 7.9 mg/dL (8.5-10.1); CREATININE 4.5 mg/dL (0.6-1.3); POTASSIUM 4.6 mmol/L (3.5-5.1)
[2017-10-08] MEDS: ACETYLCYSTEINE 20% SOLN 800 MG/4 ML VIAL NEB SCH ×3 (07:41→23:30)
[2017-10-08] MEDS: SEVELAMER CARBONATE 0.8 GM POWD.PACK GT SCH ×3 (08:37→21:53)
[2017-10-08] MEDS: GABAPENTIN 100 MG CAPSULE GT SCH ×2 (08:37→21:53)
[2017-10-08] MEDS: VIT B CMPLX 3/FA/VIT C/BIOTIN 1 TAB TABLET GT SCH (08:37)
[2017-10-08] MEDS: TRAMADOL HCL 50 MG TABLET GT SCH ×2 (08:42→21:53)
[2017-10-08] MEDS: LORAZEPAM INJ 2 MG/ML VIAL IV SCH ×2 (08:43→21:54)
[2017-10-08] MEDS: LACTOBACILLUS RHAMNOSUS GG 1 EACH CAP.SPRINK GT SCH ×2 (08:43→17:07)
[2017-10-08] MEDS: LEVETIRACETAM SOL (5 ML) 100 MG/ML UDC NG SCH ×2 (08:43→21:53)
[2017-10-08] MEDS: ZINC SULFATE 220 MG CAPSULE GT SCH (08:44)
[2017-10-08] MEDS: SIMETHICONE SUSP 40 MG/0.6 ML BOTTLE GT SCH ×2 (08:47→17:14)
[2017-10-08] MEDS: FOLIC ACID 1 MG TABLET GT SCH (08:47)
[2017-10-08] MEDS: PROSOURCE / PROSTAT (PYXIS) 30 ML UDC GT SCH ×3 (08:48→17:08)
[2017-10-08] MEDS: BACITRACIN/POLYMYXIN B 15 GM TUBE TP SCH (08:49)
[2017-10-08] MEDS: HYDROGEL DRESSING 90 GM TUBE TP SCH (08:49)
[2017-10-08] MEDS: Z GUARD REMEDY 2 OZ OINT TP SCH (08:50)
--- NOTE | 2017-10-08 10:55 | NUR ---
PARACENTESIS ON HOLD DUE TO LOW PLATELET COUNT, RN POOJA AWARE
--- NOTE | 2017-10-08 11:00 | NUR ---
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
[2017-10-08] MEDS ORDERED: METOCLOPRAMIDE HCL 10 MG/2 ML VIAL IV PRN (11:15)
[2017-10-08] MEDS: PANTOPRAZOLE 40 MG VIAL IV SCH (11:56)
--- NOTE | 2017-10-08 15:00 | NUR ---
RN NOTES TF INCREASE TO 30CC/HR , NO RESIDUAL NOTED, TOLERATING TF WELL ,
[2017-10-08] MEDS: FLUCONAZOLE (100 MG) 100 MG TABLET NG SCH (17:13)
--- NOTE | 2017-10-08 18:00 | NUR ---
RN NOTES CALL RECEIVED FROM LAB THAT PLATELET IS READY , BUT T&C NEEDS TO BE DONE AGAIN .
--- NOTE | 2017-10-08 18:20 | NUR ---
RN NOTES SMALL OOZING NOTED AT THE G TUBE SITE , PRESSURE DRESSING APPLIED ,PT STABLE , TF NOVASOURCE AT 30CC/HR RUNNING VIA G TUBE SITE , SR UP x3, CALL LIGHT WITHIN EASY REACH,BED LOCKED AND IN LOWEST POSITION . WILL ENDORSE TO RN ELIGIBILITY NURSE FOR KRYS .
--- NOTE | 2017-10-08 20:13 | NUR ---
TRUCK CLEANER INITIAL NOTES RECEIVED PATIENT ON BED, OBTUNDED, TRACH/ VENT DEPENDENT, TRACH ,TOLERATING CURRENT VENT SETTING WELL, ON TELE SR , HR IN 70'S, NOVASOURCE AT 30CC/HR RUNNING VIA G TUBE WELL , NO RESIDUAL NOTED, L UPPER ARM PICC LINE SITE CDI, SR UP x3, CALL LIGHT WITHIN EASY REACH, BED LOCKED AND IN LOWEST POSITION , CONTINUE TO MONITOR
--- NOTE | 2017-10-08 21:00 | NUR ---
[facility] CALLED FOR 111-1 PLT, EXPLAINED THAT THE BAG WAS TO BE INFUSED MANUAL WITH USE OF DOWN TIME FORM NOT EPIC, D/T PLT A PASS AND PT B PASS. PATHOLOGIST AWARE WELL [place] PAINTER. NOTIFIED CHARGE NURSE BRI, SHE SUGGESTED IT WAS OK TO TRANFUSE MANUALLY.
--- NOTE | 2017-10-08 21:20 | NUR ---
TRANSFUSE 12 ML BAG OF PLT, WITNESSED BY PAVAN AYALA BEFORE TRANFUSION, V/S PRE AND POST OBTAINED, CHECKED EMAR FOR SCANING PRODUCT, NOT ABLE TO, PROCEEDED WITH MANUAL TRANSUSION. PDUCT IS HLA SPECIFIC MATCH, NO A/R NOTED, AFEBRILE, V/S STABLE.
[2017-10-08] MEDS: LINEZOLID 600 MG TABLET PO SCH (21:53)
[2017-10-08] MEDS: PYRIDOXINE HCL 50 MG TABLET GT SCH (21:57)
[2017-10-09] VITALS (8 sets, daily range): BP systolic 114–163; BP diastolic 67–77
[2017-10-09] MEDS: BLOOD SUGAR DIAGNOSTIC 1 EACH STRIP IN SCH ×4 (00:34→17:43)
[2017-10-09] MEDS: INSULIN REGULAR, HUMAN 100 UNIT/ML 3 ML VIAL SQ PRN ×4 (00:39→17:42)
[2017-10-09] MEDS: hydrALAZINE HCL IV 20 MG VIAL IV PRN (01:17)
[2017-10-09] MEDS: RENAL NOVASOURCE 1,000 ML BOTTLE GT PRN (05:11)
[2017-10-09] MEDS: MEROPENEM 500 MG in IV NS 0.9% 50 ML IV SCH ×2 (05:11→17:41)
--- NOTE | 2017-10-09 06:21 | NUR ---
SPECIAL DISTRIBUTION CLERK CLOSING NOTES ENDORSED PATIENT ON BED, OBTUNDED, TRACH/ VENT DEPENDENT, TRACH ,TOLERATING CURRENT VENT SETTING WELL, ON TELE SR , HR IN 70'S, NOVASOURCE AT 30CC/HR RUNNING VIA G TUBE WELL , NO RESIDUAL NOTED, S/P PLT TRANFUSION NO A/R NOTE, VS STABLE, L UPPER ARM PICC LINE SITE CDI, SR UP x3, CALL LIGHT WITHIN EASY REACH, BED LOCKED AND IN LOWEST POSITION , CONTINUE TO MONITOR
[2017-10-09 06:44] LABS: BASOPHILS % (AUTO) 0.3 % (0.0-2.0); EOSINOPHILS # (AUTO) 0.1 /CMM (0.0-0.7); EOSINOPHILS % (AUTO) 3.3 % (0.0-6.0); LYMPHOCYTES # (AUTO) 0.2 /CMM (0.8-4.8); LYMPHOCYTES % (AUTO) 15.7 % (20.0-44.0); MEAN CORPUSCULAR HEMOGLOBIN 35 PG (26.0-33.0); MEAN CORPUSCULAR HGB CONC 35 g/dl (31.0-36.0); MEAN CORPUSCULAR VOLUME 100 fL (80-96); MONOCYTES # (AUTO) 0.1 /CMM (0.1-1.30); MONOCYTES % (AUTO) 4.8 % (2.0-12.0); NEUTROPHILS # (AUTO) 1.2 /CMM (1.8-8.9); NEUTROPHILS % (AUTO) 75.9 % (43.0-81.0); RDW COEFFICIENT OF VARIATION 19.1 (11.5-15.0)
[2017-10-09 06:54] LABS: RED BLOOD CELL COUNT(AUTO) 1.87 MIL/uL (4.5-6.0); WHITE BLOOD COUNT (AUTO) 1.5 K/uL (4.3-11.0)
[2017-10-09 06:55] LABS: HEMATOCRIT 19 % (39-51); HEMOGLOBIN 6.5 g/dL (13.5-17.5); PLATELET COUNT (AUTO) 20 /CMM (150-450)
[2017-10-09 07:51] LABS: CALCIUM, SERUM 8.4 mg/dL (8.5-10.1); CREATININE 4.9 mg/dL (0.6-1.3); POTASSIUM 4.6 mmol/L (3.5-5.1)
[2017-10-09] MEDS: ACETYLCYSTEINE 20% SOLN 800 MG/4 ML VIAL NEB SCH ×3 (07:52→23:08)
[2017-10-09] MEDS: Z GUARD REMEDY 2 OZ OINT TP SCH (08:50)
[2017-10-09] MEDS: HYDROGEL DRESSING 90 GM TUBE TP SCH (08:50)
[2017-10-09] MEDS: BACITRACIN/POLYMYXIN B 15 GM TUBE TP SCH (08:52)
[2017-10-09] MEDS: LEVETIRACETAM SOL (5 ML) 100 MG/ML UDC NG SCH ×2 (08:59→21:08)
[2017-10-09] MEDS: FOLIC ACID 1 MG TABLET GT SCH (08:59)
[2017-10-09] MEDS: TRAMADOL HCL 50 MG TABLET GT SCH ×2 (08:59→21:07)
[2017-10-09] MEDS: LINEZOLID 600 MG TABLET PO SCH ×2 (08:59→21:08)
[2017-10-09] MEDS: GABAPENTIN 100 MG CAPSULE GT SCH ×2 (08:59→21:06)
[2017-10-09] MEDS: VIT B CMPLX 3/FA/VIT C/BIOTIN 1 TAB TABLET GT SCH (08:59)
[2017-10-09] MEDS: PROSOURCE / PROSTAT (PYXIS) 30 ML UDC GT SCH ×3 (08:59→16:14)
[2017-10-09] MEDS: ZINC SULFATE 220 MG CAPSULE GT SCH (08:59)
[2017-10-09] MEDS: SEVELAMER CARBONATE 0.8 GM POWD.PACK GT SCH ×3 (08:59→21:07)
[2017-10-09] MEDS: LACTOBACILLUS RHAMNOSUS GG 1 EACH CAP.SPRINK GT SCH ×2 (08:59→16:13)
[2017-10-09] MEDS: SIMETHICONE SUSP 40 MG/0.6 ML BOTTLE GT SCH ×2 (09:00→16:13)
[2017-10-09] MEDS: LORAZEPAM INJ 2 MG/ML VIAL IV SCH ×2 (09:05→21:09)
[2017-10-09 09:56] LABS: EOSINOPHILS % (MANUAL) 2 % (0-4); LYMPHOCYTES % (MANUAL) 17 % (16-48); MONOCYTES % (MANUAL) 7 % (0-11.0); NEUTROPHILS % (MANUAL) 74 (42-76)
[2017-10-09] MEDS: PANTOPRAZOLE 40 MG VIAL IV SCH (12:22)
--- NOTE | 2017-10-09 12:55 | NUR ---
RN ARTIS CLARIFIED WITH DR. SCHWARTZ THAT PATIENT WILL BE DISCHARGED TOMORROW, NOT TODAY.
[2017-10-09] MEDS: TBO-FILGRASTIM 300 MCG/0.5 ML SYRINGE SQ SCH (14:25)
[2017-10-09] MEDS ORDERED: CELLULOSE,OXIDIZED 1 PKT EACH MC STA (14:30)
[2017-10-09] MEDS: FLUCONAZOLE (100 MG) 100 MG TABLET NG SCH (16:13)
--- NOTE | 2017-10-09 19:00 | NUR ---
1900 received patient,obtunded,opens eyes to pain,but not moving extremities,+ cough,+ gag,grimaces to pain.With tracheostomy to the ventilator on AC mode,tolerating well,no SOB,Peg tube with on going feeding at goal rate ,tolerating well,with 0 to minimal residual.Grossly distended abdomen, and generalized edema.Comfort care done ,needs attended. 10/10/17 12 am Status unchanged,comfort care done. 0400 remains stable,neuro status unchanged.
[2017-10-09] MEDS: PYRIDOXINE HCL 50 MG TABLET GT SCH (21:08)
[2017-10-10] VITALS: BP 99/57
[2017-10-10] MEDS: BLOOD SUGAR DIAGNOSTIC 1 EACH STRIP IN SCH ×3 (00:26→12:04)
[2017-10-10] MEDS: INSULIN REGULAR, HUMAN 100 UNIT/ML 3 ML VIAL SQ PRN ×3 (00:33→11:32)
[2017-10-10 04:00] VITALS: BP 112/60
[2017-10-10] MEDS: RENAL NOVASOURCE 1,000 ML BOTTLE GT PRN (05:07)
[2017-10-10] MEDS: MEROPENEM 500 MG in IV NS 0.9% 50 ML IV SCH (05:50)
--- NOTE | 2017-10-10 07:00 | NUR ---
Rn Closing Notes Remains stable on the ventilator,tolerating well,No SOB .Tolerating feeding .Possible discharge today.Continue comfort care.Follow up hgb and platelet.Report given to ivy AYALA.
[2017-10-10] MEDS: ACETYLCYSTEINE 20% SOLN 800 MG/4 ML VIAL NEB SCH ×2 (07:27→14:45)
--- NOTE | 2017-10-10 07:49 | NUR ---
FREIGHT BRAKE OPERATOR INITIAL NOTES RECEIVED PATIENT ON BED, OBTUNDED, TRACH/ VENT DEPENDENT, TRACH ,TOLERATING CURRENT VENT SETTING WELL, ON TELE SR, NOVASOURCE AT 35 ML/HR RUNNING VIA G TUBE , NO RESIDUAL NOTED, L UPPER ARM PICC LINE SITE CLEAN DRY AND INTACT, SIDE RAILS UP x3, CALL LIGHT WITHIN EASY REACH, BED LOCKED AND IN LOWEST POSITION , RN WILL CONTINUE TO MONITOR THROUGHOUT THE DAY.
[2017-10-10 08:00] VITALS: BP 137/73
[2017-10-10] MEDS: SEVELAMER CARBONATE 0.8 GM POWD.PACK GT SCH ×2 (09:04→17:00)
[2017-10-10] MEDS: LACTOBACILLUS RHAMNOSUS GG 1 EACH CAP.SPRINK GT SCH ×2 (09:04→17:00)
[2017-10-10] MEDS: GABAPENTIN 100 MG CAPSULE GT SCH (09:05)
[2017-10-10] MEDS: VIT B CMPLX 3/FA/VIT C/BIOTIN 1 TAB TABLET GT SCH (09:05)
[2017-10-10] MEDS: ZINC SULFATE 220 MG CAPSULE GT SCH (09:05)
[2017-10-10] MEDS: LINEZOLID 600 MG TABLET PO SCH (09:06)
[2017-10-10] MEDS: TRAMADOL HCL 50 MG TABLET GT SCH (09:06)
[2017-10-10] MEDS: LEVETIRACETAM SOL (5 ML) 100 MG/ML UDC NG SCH (09:07)
[2017-10-10] MEDS: LORAZEPAM INJ 2 MG/ML VIAL IV SCH (09:07)
[2017-10-10] MEDS: FOLIC ACID 1 MG TABLET GT SCH (09:08)
[2017-10-10] MEDS: SIMETHICONE SUSP 40 MG/0.6 ML BOTTLE GT SCH ×2 (09:09→17:01)
[2017-10-10] MEDS: HYDROGEL DRESSING 90 GM TUBE TP SCH (09:09)
[2017-10-10] MEDS: Z GUARD REMEDY 2 OZ OINT TP SCH (09:09)
[2017-10-10] MEDS: PROSOURCE / PROSTAT (PYXIS) 30 ML UDC GT SCH ×3 (09:10→17:00)
[2017-10-10] MEDS: BACITRACIN/POLYMYXIN B 15 GM TUBE TP SCH (09:10)
[2017-10-10] MEDS ORDERED: ACET200V5 NEB (09:48)
[2017-10-10] MEDS ORDERED: BACI28.33 TP (09:48)
[2017-10-10] MEDS ORDERED: HYDR20VI4 IV (09:48)
[2017-10-10] MEDS ORDERED: METO5VIA6 IV (09:48)
[2017-10-10] MEDS ORDERED: LACT1CAP72 GT (09:48)
[2017-10-10] MEDS ORDERED: MERO500V IV (09:48)
[2017-10-10] MEDS ORDERED: Zinc Sulfate GT (09:48)
[2017-10-10] MEDS ORDERED: ALLA266C2 TP (09:48)
[2017-10-10] MEDS ORDERED: FLUC100T8 NG (09:48)
[2017-10-10] MEDS ORDERED: BISA10SU8 RC (09:48)
[2017-10-10] MEDS ORDERED: Prosource GT (09:48)
[2017-10-10] MEDS ORDERED: CLON1PAT TD (09:48)
[2017-10-10 10:15] LABS: BASOPHILS % (AUTO) 0.3 % (0.0-2.0); EOSINOPHILS % (AUTO) 0.7 % (0.0-6.0); HEMATOCRIT 23 % (39-51); HEMOGLOBIN 7.7 g/dL (13.5-17.5); LYMPHOCYTES # (AUTO) 0.2 /CMM (0.8-4.8); LYMPHOCYTES % (AUTO) 3.7 % (20.0-44.0); MEAN CORPUSCULAR HEMOGLOBIN 33 PG (26.0-33.0); MEAN CORPUSCULAR HGB CONC 34 g/dl (31.0-36.0); MEAN CORPUSCULAR VOLUME 98 fL (80-96); MONOCYTES # (AUTO) 0.1 /CMM (0.1-1.30); MONOCYTES % (AUTO) 1.2 % (2.0-12.0); NEUTROPHILS # (AUTO) 5.9 /CMM (1.8-8.9); NEUTROPHILS % (AUTO) 94.1 % (43.0-81.0); RDW COEFFICIENT OF VARIATION 20.5 (11.5-15.0); RED BLOOD CELL COUNT(AUTO) 2.34 MIL/uL (4.5-6.0); WHITE BLOOD COUNT (AUTO) 6.3 K/uL (4.3-11.0)
[2017-10-10 10:27] LABS: PLATELET COUNT (AUTO) 27 /CMM (150-450)
[2017-10-10 10:38] LABS: ALBUMIN 1.9 g/dL (3.4-5.0); BILIRUBIN,TOTAL 1.8 mg/dL (0.2-1.0); CALCIUM, SERUM 8.7 mg/dL (8.5-10.1); CREATININE 4.9 mg/dL (0.6-1.3); MAGNESIUM 2.7 mg/dL (1.8-2.4); PHOSPHORUS 4.8 mg/dL (2.5-4.9); POTASSIUM 4.3 mmol/L (3.5-5.1); TOTAL PROTEIN, SERUM 6.6 g/dL (6.4-8.2)
[2017-10-10 10:47] LABS: BAND % (MANUAL) 3 % (0.0-5.0); LYMPHOCYTES % (MANUAL) 4 % (16-48); MONOCYTES % (MANUAL) 1 % (0-11.0); NEUTROPHILS % (MANUAL) 92 (42-76)
[2017-10-10] MEDS: PANTOPRAZOLE 40 MG VIAL IV SCH (11:11)
[2017-10-10 12:00] VITALS: BP_SYST 154; BP_SYST 159; BP_DIAS 97
--- NOTE | 2017-10-10 13:43 | NUR ---
RN NOTE RN CONTACTED PATIENT FAMILY IN REGARDS TO PATIENT DISCHARGE PLANNING
--- NOTE | 2017-10-10 14:00 | NUR ---
AUTOMATIC SPREADER OPERATOR NOTE RN CONTACTED [facility] RN SPOKE WITH JAMIE ORTEGA FOR 2OMIN IN DETAIL ABOUT THE PATIENT PLAN OF CARE , PATIENT STABLE AT THIS TIME FAMILY IS NO LONGER AT THE BEDSIDE PATIENT TURNED AND REPOSITIONED PICTURES TAKEN AND PLACED IN PATIENTS CHART AT 1200. PATIENT STABLE AT THIS TIME CHARGE NURSE NOTIFIED IN REGARDS TO PATIENT S PROGRESS
--- NOTE | 2017-10-10 14:05 | NUR ---
RN NOTE CONTACED PHARMACY FOR GRANIX RN WILL CONTINUE TO FOLLOW
[2017-10-10] MEDS: TBO-FILGRASTIM 300 MCG/0.5 ML SYRINGE SQ SCH (14:28)
[2017-10-10 16:00] VITALS: BP 154/70
[2017-10-10] MEDS: ACETAMINOPHEN 650 MG/20.3 ML UDC GT PRN (17:00)
[2017-10-10] MEDS: FLUCONAZOLE (100 MG) 100 MG TABLET NG SCH (17:00)
[2017-10-10 17:01] VITALS: BP 162/72
[2017-10-10] MEDS: hydrALAZINE HCL IV 20 MG VIAL IV PRN (17:01)
--- NOTE | 2017-10-10 19:04 | NUR ---
RN NOTE PATIENT DISCHARGED REPORT GIVEN TO EMS , PATIENT FAMILY AT BEDSIDE AND STATE THEY WILL BE MEETING EMS AT [facility], PATIENT STABLE AT THIS TIME MEDICATION ADMINISTERED
== END 2017-10-10 19:12 | disposition short-term general hospital (02) | DRG 393 ==
LOC: ER 16:43 → TELE-TD 18:36 → TELE1 07-14 09:51 → TELE-TD 07-14 18:12 → ICU 07-14 20:00 → TELE-TD 07-17 13:00 → TELE1 07-17 13:55 → TELE-TD 07-17 13:59 → TELE1 07-18 11:47 → ICU 08-23 00:25 → TELE-TD 08-24 18:32 → ICU 08-25 03:53 → TELE1 08-27 18:54 → TELE-TD 08-27 19:04 → TELE1 08-30 09:58 → TELE-TD 09-23 15:16 → TELE1 09-25 06:40
PROVIDERS: ADMIT Internal Medicine; ATTEND Internal Medicine
PROC: 5A1955Z Respiratory Ventilation, Greater than 96 Consecutive Hours (ICD-10-PCS; principal; 2017-07-13)
PROC: 5A1D70Z Performance of Urinary Filtration, Intermittent, Less than 6 Hours Per Day (ICD-10-PCS; 2017-07-22)
PROC: 02HV33Z Insertion of Infusion Device into Superior Vena Cava, Percutaneous Approach (ICD-10-PCS; 2017-08-06)
PROC: 05H633Z Insertion of Infusion Device into Left Subclavian Vein, Percutaneous Approach (ICD-10-PCS; 2017-08-06)
PROC: 0DH63UZ Insertion of Feeding Device into Stomach, Percutaneous Approach (ICD-10-PCS; 2017-09-02)
DX: K94.22 Gastrostomy infection (principal); R65.21 Severe sepsis with septic shock; I21.A1 Myocardial infarction type 2; G93.1 Anoxic brain damage, not elsewhere classified; A41.9 Sepsis, unspecified organism; Z99.11 Dependence on respirator [ventilator] status; K31.6 Fistula of stomach and duodenum; D61.818 Other pancytopenia; N18.6 End stage renal disease; J90 Pleural effusion, not elsewhere classified; J96.11 Chronic respiratory failure with hypoxia; I12.0 Hypertensive chronic kidney disease with stage 5 chronic kidney disease or end stage renal disease; E87.1 Hypo-osmolality and hyponatremia; L03.311 Cellulitis of abdominal wall; I42.9 Cardiomyopathy, unspecified; N39.0 Urinary tract infection, site not specified; K94.23 Gastrostomy malfunction; D69.59 Other secondary thrombocytopenia; R13.10 Dysphagia, unspecified; E11.22 Type 2 diabetes mellitus with diabetic chronic kidney disease; D63.1 Anemia in chronic kidney disease; Z99.2 Dependence on renal dialysis; E11.649 Type 2 diabetes mellitus with hypoglycemia without coma; E87.6 Hypokalemia; E87.70 Fluid overload, unspecified; F41.9 Anxiety disorder, unspecified; G40.909 Epilepsy, unspecified, not intractable, without status epilepticus; Z86.73 Personal history of transient ischemic attack (TIA), and cerebral infarction without residual deficits; Z86.718 Personal history of other venous thrombosis and embolism; Z83.3 Family history of diabetes mellitus; Z79.899 Other long term (current) drug therapy; D63.8 Anemia in other chronic diseases classified elsewhere; Y92.129 Unspecified place in nursing home as the place of occurrence of the external cause; Y83.3 Surgical operation with formation of external stoma as the cause of abnormal reaction of the patient, or of later complication, without mention of misadventure at the time of the procedure; Y73.8 Miscellaneous gastroenterology and urology devices associated with adverse incidents, not elsewhere classified; I25.2 Old myocardial infarction; D69.6 Thrombocytopenia, unspecified; E86.1 Hypovolemia; K74.60 Unspecified cirrhosis of liver; Z79.4 Long term (current) use of insulin; B96.1 Klebsiella pneumoniae [K. pneumoniae] as the cause of diseases classified elsewhere; B96.5 Pseudomonas (aeruginosa) (mallei) (pseudomallei) as the cause of diseases classified elsewhere; B96.20 Unspecified Escherichia coli [E. coli] as the cause of diseases classified elsewhere; S31.000A Unspecified open wound of lower back and pelvis without penetration into retroperitoneum, initial encounter; S31.829A Unspecified open wound of left buttock, initial encounter; S31.819A Unspecified open wound of right buttock, initial encounter; S01.00XA Unspecified open wound of scalp, initial encounter
CPT/HCPCS: 31720; 36415; 36569; 36600; 43246; 71010-TC; 74000-TC; 76700-TC; 76705-TC; 80048-TC; 80053-TC; 80076-TC; 80150; 80202-TC; 82272-TC; 82306; 82378; 82553-TC; 82728-TC; 82746; 82803-TC; 82947-TC; 82962-TC; 83010; 83540-TC; 83605-TC; 83615-TC; 83735-TC; 84100-TC; 84484-TC; 84550-TC; 85025-TC; 85027-TC; 85045-TC; 85396; 85610-TC; 85730-TC; 86704; 86705; 86706; 86707; 86803; 86850-TC; 86921-TC; 87040-TC; 87070-TC; 87081-TC; 87186-TC; 87340; 87350; 90935-TC; 93307-TC; 94003-TC; 94640-TC; 94760-TC; 94762-TC; 99082-TC; A4216; A4217; A4606; A4623; A6248; A6253; A6402; A6403; A7526; A9563; C1750; C1751; C1769; C9113; J0278; J0360; J0690; J0692; J0885; J1200; J1442; J1450; J1644; J1815; J1953; J2060; J2185; J2250; J2270; J2405; J2543; J2704; J2765; J3010; J3370; J3475; J3480; J3490; J7030; J7040; J7042; J7050; J7060; J7070; P9016-BL; P9017-BL; P9034-BL; P9047; Q9963; Q9967; Z7610

== ENCOUNTER 2018-03-25 17:33 | Inpatient (IN) | payer MEDICARE, MEDICAID ==
[~2018-03-25] VITALS: Ht 172.7 cm; Wt 88.5 kg
[~2018-03-25 17:33] MED LIST changes: -ACET160E13 GT; +ACET160E36 GT; +ACET200V5 NEB; -ALBU2.5V13 IH; -AMIN887L GT; -AMLO5TAB4 GT; +BACI28.33 TP; +BISA10SU8 RC; +CLON1PAT TD; -DILT30TA2 GT; -DOCU50LI GT; -DOXA4TAB2 GT; +FLUC100T8 NG; +GLIP5TAB13 PO; -HYDR-4076 GT; +HYDR20VI4 IV; -INSU100V26 SQ; +INSU100V30 SQ; -IPRA0.2S9 IH; +LACT1CAP72 GT; +MERO500V IV; +METO5VIA6 IV; +MIDO10TA GT; -NITR1PAT9 TD; +PIPERACILLIN /TAZOBACTAM 3.375 G in IV D5W 100 ML IV ONE; +Prosource GT; +Zinc Sulfate GT
--- NOTE | 2018-03-25 17:40 | NUR ---
[facility]PA FROM [facility] DT G-TUBE MALFUNCTION AND ABDOMINAL DISTENTION. PATIENT IS VENT/ TRACHE DEPENDENT, NOTED GT LEAKING, ABDOMEN SEVERELY DISTENDED. PATIENT IS AFEBRILE. VENT SETTING TOLERATED. HD CATH NOTED ON RUC. CONNECTED PT TO TELE MONITOR. PENDING MD CASTELLANO
--- NOTE | 2018-03-25 18:01 | NUR ---
PATIENT RECEIVED TRACHED WITH PORTEX 8 CUFFED IN PLACED. PLACED ON MECHANICAL VENTILATION WITH SETTINGS OF AC 20, 550, 40%, +5. VENT PLUGGED INTO RED OUTLET. SUCTION DONE, MODERATE THICK WHITE YELLOW SECRETIONS NOTED. ALARMS ON AND AUDIBLE. PATIENT STABLE. NO SOB NOTED. Addendum: 03/25/18 at 1803 by ROBBIE SHINE RT Amended: Links added.
[2018-03-25 18:22] LABS: BASOPHILS % (AUTO) 0.4 % (0.0-2.0); EOSINOPHILS % (AUTO) 2.1 % (0.0-6.0); HEMATOCRIT 27 % (39-51); HEMOGLOBIN 9.5 g/dL (13.5-17.5); LYMPHOCYTES # (AUTO) 0.5 /CMM (0.8-4.8); LYMPHOCYTES % (AUTO) 8.2 % (20.0-44.0); MEAN CORPUSCULAR HGB CONC 35 g/dl (31.0-36.0); MEAN CORPUSCULAR VOLUME 106 fL (80-96); MONOCYTES # (AUTO) 0.3 /CMM (0.1-1.30); MONOCYTES % (AUTO) 5.4 % (2.0-12.0); NEUTROPHILS # (AUTO) 4.8 /CMM (1.8-8.9); NEUTROPHILS % (AUTO) 83.9 % (43.0-81.0); PLATELET COUNT (AUTO) 55 /CMM (150-450); RDW COEFFICIENT OF VARIATION 17.4 (11.5-15.0); RED BLOOD CELL COUNT(AUTO) 2.56 MIL/uL (4.5-6.0); WHITE BLOOD COUNT (AUTO) 5.7 K/uL (4.3-11.0)
[2018-03-25 18:32] LABS: CALCIUM, SERUM 8.5 mg/dL (8.5-10.1); CREATININE 2.7 mg/dL (0.6-1.3); POTASSIUM 3.3 mmol/L (3.5-5.1)
[2018-03-25 18:36] LABS: INR 1.05 (0.85-1.15)
[2018-03-25 18:38] LABS: ALBUMIN 2.7 g/dL (3.4-5.0); BILIRUBIN,DIRECT 0.3 mg/dL (0.0-0.2); BILIRUBIN,TOTAL 0.7 mg/dL (0.2-1.0)
[2018-03-25 18:58] LABS: BAND % (MANUAL) 21 % (0.0-5.0); EOSINOPHILS % (MANUAL) 3 % (0-4); LYMPHOCYTES % (MANUAL) 10 % (16-48); MONOCYTES % (MANUAL) 6 % (0-11.0); NEUTROPHILS % (MANUAL) 60 (42-76)
--- NOTE | 2018-03-25 19:10 | NUR ---
RECIEVED REPORT FROM JAMIE FABIAN. PT APPEARS COMFORTABLE AT THIS TIME. VANITA AT BEDSIDE.
--- NOTE | 2018-03-25 19:12 | NUR ---
PT VENT SETTINGS PRESCRIBED: AC 20 VT 550 FI02 40% PEEP 5
--- NOTE | 2018-03-25 19:49 | NUR ---
PT GTUBE INTACT AND PATENT. REDNESS NOTED AROUND STOMA. NO RESIDUALS NOTED.
--- NOTE | 2018-03-25 20:20 | NUR ---
DR. BENITEZ / JERONIMO FULLER AT BEDSIDE FOR PARACENTISIS.
--- NOTE | 2018-03-25 20:22 | NUR ---
CALLED PHARMACY FOR IV MEDICATION.
--- NOTE | 2018-03-25 20:29 | NUR ---
DROPPED OFF PEROTINEAL FLUID 2 TUBES AT LAB, PER SOLE ROUNDER GERTRUDE RECEIVED.
[2018-03-25] MEDS ORDERED: PIPERACILLIN /TAZOBACTAM 3.375 G in IV D5W 100 ML IV ONE (20:30)
--- NOTE | 2018-03-25 20:30 | NUR ---
CALLED NURSING PLATE DRYING MACHINE TENDER AND REQUESTED A ARTIS BED FOR THIS PT.
--- NOTE | 2018-03-25 20:34 | NUR ---
PER PROCESS MOLD TECHNICIAN DEGARSSI, PT UNABLE TO PROVIDE URINE. OKAY TO GIVE IV ATB. PT ALSO NOTED WITH WOUND ON SACRUM. PROCESS MOLD TECHNICIAN DEGRASSI AWRE
--- NOTE | 2018-03-25 20:35 | NUR ---
CALLED THE OFFICE OF DR KANG AND HE WAS PAGED.
--- NOTE | 2018-03-25 20:56 | NUR ---
PER PHARM TO NON ADMIN [facility] RX [id number] (ERROR IN ORDER)
[2018-03-25] MEDS ORDERED: VANCOMYCIN 1 GM in IV D5W 250ml IV ONE (21:00)
--- NOTE | 2018-03-25 21:09 | NUR ---
CALLED DR KANG'S OFFICE AND HE WAS REPAGED.
[2018-03-25 21:30] VITALS: BP 112/65
--- NOTE | 2018-03-25 21:37 | NUR ---
RT AT BEDSIDE
--- NOTE | 2018-03-25 21:47 | NUR ---
PT IS ASSIGNED TO [facility]#: [id number], PT IS DIAGNOSED WITH ASCITES/BANDEMIA, AND DR KANG IS THE ACCEPTING MD.
--- NOTE | 2018-03-25 22:12 | NUR ---
REPORT GIVEN TO JAMIE CISNEROS FOR KRYS.
--- NOTE | 2018-03-25 22:41 | NUR ---
PT TRANSFERRED PER ACLS PROTOCOL.
[2018-03-25 22:42] VITALS: BP 94/54
--- NOTE | 2018-03-25 22:45 | NUR ---
RN ARTIS ADMITTING NOTE 52 YR OLD ML FROM [facility] SENT FOR GT LEAKING/ ABD DISTENSION, ON VENT SETTING OF AC 20, TV 550, FIO2 40% AND PEEP 5, WITH P#6, GT SITE CELLULITIS NOTED, RAC # 20 G. WITH SKIN ISSUES NOTED PICTURES TAKEN, SACRAL ULCER. DR KANG CALLED FOR ORDERS, CONT ALL ORDERS FROM SNF ORDERED ON MED [employer], ENTERED PER PROTOCOL, TO SEE PT IN AM. ALL SAFETY MEASURES UNDER TAKEN, WILL ENDORSE FOR AM SHIFT RN TO F/U ON STANDING ORDERS.
[2018-03-26] VITALS: BP 94/54
[2018-03-26] MEDS ORDERED: PIPERACILLIN /TAZOBACTAM 3.375 G VIAL IV ONE (00:19)
[2018-03-26] MEDS ORDERED: DEXTROSE 50%-WATER 50 ML DISP.SYRIN IV PRN ×2 (00:30→10:30)
[2018-03-26] MEDS ORDERED: IV D5/ 0.9% NACL 1,000 ML IV ONE (00:30)
[2018-03-26 04:00] VITALS: BP 96/57
[2018-03-26] MEDS ORDERED: BLOOD SUGAR DIAGNOSTIC 1 EACH STRIP IN SCH ×2 (06:00→12:00)
--- NOTE | 2018-03-26 06:24 | NUR ---
RN ARTIS CLOSING NOTE ENDORSED PT ON VENT STABLE, VS TRENDING IN THE LOW 95/53 WNSR 70'S, 06 AM BS 78 PT KEPT CLEAN AND DRY, KCL AND WOUND CONSULT ENTERED. WILL ENDORSE TO AM SHIFT RN TO F/U.
[2018-03-26 07:07] LABS: CALCIUM, SERUM 8.4 mg/dL (8.5-10.1); POTASSIUM 3.3 mmol/L (3.5-5.1)
[2018-03-26 07:08] LABS: BASOPHILS % (AUTO) 0.3 % (0.0-2.0); HEMATOCRIT 22 % (39-51); HEMOGLOBIN 7.8 g/dL (13.5-17.5); LYMPHOCYTES # (AUTO) 0.3 /CMM (0.8-4.8); LYMPHOCYTES % (AUTO) 12.5 % (20.0-44.0); MEAN CORPUSCULAR HGB CONC 35 g/dl (31.0-36.0); MEAN CORPUSCULAR VOLUME 106 fL (80-96); MONOCYTES # (AUTO) 0.2 /CMM (0.1-1.30); MONOCYTES % (AUTO) 8.4 % (2.0-12.0); NEUTROPHILS # (AUTO) 2.1 /CMM (1.8-8.9); NEUTROPHILS % (AUTO) 77.8 % (43.0-81.0); RDW COEFFICIENT OF VARIATION 18.1 (11.5-15.0); RED BLOOD CELL COUNT(AUTO) 2.11 MIL/uL (4.5-6.0); WHITE BLOOD COUNT (AUTO) 2.7 K/uL (4.3-11.0)
[2018-03-26 07:23] LABS: PLATELET COUNT (AUTO) 43 /CMM (150-450)
--- NOTE | 2018-03-26 07:50 | NUR ---
RESTORATIVE COORDINATOR; pt.is obtunded, can open eyes, no eyes contact, no activity tracking, SR, BP 96/57, O2sat. WNL, abdomen is distended, Ds Ascites per US, GT: leak around Gt with little bloody discharge, NPO/no GT meds per report, ?some patch on chest from 02/28/18, HD pt., K+3.3, no acute order now for GI consult per report
[2018-03-26 08:00] VITALS: BP 96/57
[2018-03-26] MEDS ORDERED: FEE PK DOSING 1 MIN EA MC ONE (08:14)
[2018-03-26 08:55] LABS: BAND % (MANUAL) 1 % (0.0-5.0); LYMPHOCYTES % (MANUAL) 12 % (16-48); MONOCYTES % (MANUAL) 4 % (0-11.0); NEUTROPHILS % (MANUAL) 83 (42-76)
[2018-03-26] MEDS: FOLIC ACID 1 MG TABLET GT SCH (09:27)
[2018-03-26] MEDS: GABAPENTIN 100 MG CAPSULE GT SCH ×2 (09:28→20:57)
[2018-03-26] MEDS ORDERED: glipiZIDE 5 MG TABLET PO SCH (09:28)
[2018-03-26] MEDS ORDERED: CLONIDINE HCL 0.1MG/24H PTWK 1 EA PATCH TD SCH (09:30)
[2018-03-26] MEDS ORDERED: hydrALAZINE HCL IV 20 MG VIAL IV PRN (09:30)
[2018-03-26] MEDS ORDERED: BISACODYL SUPP (10 MG) 10 MG/SUPP.RECT SUPP.RECT RC PRN (09:30)
[2018-03-26] MEDS ORDERED: INSULIN REGULAR, HUMAN 100 UNIT/ML 3 ML VIAL SQ SCH (09:30)
[2018-03-26] MEDS: LACTOBACILLUS RHAMNOSUS GG 1 EACH CAP.SPRINK GT SCH ×2 (09:32→17:50)
[2018-03-26] MEDS: LEVETIRACETAM SOL (5 ML) 100 MG/ML UDC GT SCH ×2 (09:35→20:57)
[2018-03-26] MEDS: TRAMADOL HCL 50 MG TABLET PO SCH ×2 (09:36→20:57)
[2018-03-26] MEDS: CARVEDILOL 12.5 MG TABLET GT SCH ×2 (09:37→20:58)
[2018-03-26] MEDS: VIT B CMPLX 3/FA/VIT C/BIOTIN 1 TAB TABLET GT SCH (09:39)
[2018-03-26] MEDS: ZINC SULFATE 220 MG CAPSULE GT SCH (09:40)
[2018-03-26] MEDS: SEVELAMER CARBONATE 0.8 GM POWD.PACK GT SCH ×3 (09:40→20:57)
[2018-03-26] MEDS ORDERED: INSULIN REGULAR, HUMAN 100 UNIT/ML 3 ML VIAL SQ PRN (10:30)
--- NOTE | 2018-03-26 11:00 | NUR ---
WOUND CARE CONSULT: PT FOLLOWED BY SURGICAL TEAM FOR WOUND. DEFER TO SURGICAL TEAM FOR WOUND TREATMENT PLAN. FIRST STEP MATTRESS ORDERED. ALL SKIN PROTECTION AND PRESSURE ULCER PREVENTION MEASURES IN PLACE AND DISCUSSED WITH NURSING STAFF.
[2018-03-26] MEDS: POLYVINYL ALCOHOL 15 ML BOTTLE EACHEYE SCH ×2 (11:12→20:59)
[2018-03-26] MEDS: BACITRACIN/POLYMYXIN B 15 GM TUBE TP SCH (11:12)
[2018-03-26 12:00] VITALS: BP 132/56
[2018-03-26] MEDS ORDERED: NEPRO 1,000 ML BOTTLE GT SCH (12:00)
[2018-03-26] MEDS ORDERED: PANTOPRAZOLE 40 MG/PACK PACK GT SCH ×2 (13:00→16:00)
[2018-03-26] MEDS: PROSOURCE / PROSTAT (PYXIS) 30 ML UDC GT SCH ×2 (13:00→17:52)
[2018-03-26] MEDS: MEROPENEM 500 MG in IV NS 0.9% 50 ML IV SCH (13:59)
[2018-03-26] MEDS: BLOOD SUGAR DIAGNOSTIC 1 EACH STRIP IN SCH ×2 (14:04→18:32)
[2018-03-26] MEDS ORDERED: DIATR MEGLU/DIATRIZOATE SODIUM 30 ML BOTTLE (GASTROGRAPHIN) ONE (15:30)
[2018-03-26] MEDS ORDERED: ACETYLCYSTEINE 10% SOLN 400 MG/4 ML VIAL NEB SCH (15:30)
--- NOTE | 2018-03-26 15:30 | NUR ---
REMELT FURNACE EXPEDITER: is in room, updated with pt.current status, VS, IVF, NPO, I/O, GT leak (last 6 hrs only one 4x4 was changed), JERONIMO Cronin updated too, abd.XR KUB was ordered
[2018-03-26 15:55] LABS: ABG BASE EXCESS 5.6 mmol/L; ABG OXYGEN SATURATION 97.4 % (92.0-98.5); ABG PCO2 28.6 mmHg (35.0-45.0); ABG PH 7.599 (7.350-7.450); ABG PO2 105.6 mmHg (75.0-100.0); AaDO2 146.7 mmHg; COHb 0.1 % (0.5-1.5); MetHb 0.7 % (0.0-1.5); O2Hb 96.6 % (94.0-97.0); PEEP,BG 5 cm H2O; SITE, ABG Left Brachial; VT, ABG 550 mL
[2018-03-26 16:00] VITALS: BP 110/61
[2018-03-26 16:00] LABS: IRON, SERUM 83 ug/dl (50-175); TOTAL IRON BINDING CAPACITY 181 ug/dl (250-450)
--- NOTE | 2018-03-26 16:00 | NUR ---
AGRONOMY INSTRUCTOR: ordered US paracentesis, HD tomorrow, updated with ABG, spoke with , said: hold paracentesis for now, wants to do EGD on Thursday, waiting KUB result
[2018-03-26] MEDS: IV D5/0.45 NACL 1,000 ML IV PRN (16:21)
--- NOTE | 2018-03-26 16:26 | NUR ---
Patient is trach/vent dependent, resides at [facility] [phone]. He is bedbound and totally dependent with adl's. Receives HD every MWF @ [facility] [phone]. D/c plan is to dc back to [facility] via ambulance. Addendum: 03/26/18 at 1626 by OLEGARIO MONTALVO RN Amended: Links added.
--- NOTE | 2018-03-26 16:30 | NUR ---
ACTIVITIES VOLUNTEER: spoke with angelique Espinosa to start GTF nepro GTf start 10ml/h, goal 30 ml/h, spoke with TALIA re paracentesisMD is consider platelets [phone], wants to see labs tomorrow
[2018-03-26] MEDS: ACETYLCYSTEINE 20% SOLN 800 MG/4 ML VIAL NEB SCH ×2 (17:17→22:47)
--- NOTE | 2018-03-26 17:30 | NUR ---
MUSIC INTERNSHIP: updated with ABG, ordered vent changes: AC Rate 14, Tv 500
[2018-03-26] MEDS: PANTOPRAZOLE 40 MG VIAL IV SCH (17:50)
[2018-03-26] MEDS: SUCRALFATE 1 G/10 ML UDC GT SCH ×2 (17:50→21:11)
--- NOTE | 2018-03-26 18:00 | NUR ---
SENIOR ELECTRONICS TECHNICIAN: updated with radiology department call (MD is consider with [phone] platelets now for paracentesis, ok with [phone], wants to see labs tomorrow), sent message we can give one platelets pheresis unit prior to paracentesis, will place misc.order and endorse next shift
[2018-03-26] MEDS: INSULIN REGULAR, HUMAN 100 UNIT/ML 3 ML VIAL SQ PRN (18:30)
--- NOTE | 2018-03-26 19:20 | NUR ---
ELECTRONICS SCALE TESTER: tried again to reach US department staff for paracentesis schedule time tomorrow to verified time for platelets transfusion, gave full report for next shift RN, will endorse verify and time place order for platelets transfusion
--- NOTE | 2018-03-26 19:49 | NUR ---
RN TEL NOTE RECEIVED PT CONT ON VENT SETTING CHANGED AC 14, TV 500, FIO2 40 AND PEEP OF 5, WELL DENNIS, GTF TO BE RESUMED, ON NEPRO @ 10ML TO REACH A GOAL OF 30ML, ON D / NS 40ML,WELL DENNIS IV SITE INTACT ON SIGN OF INFILTRATION. IRIS AYALA ENDORSED A PARACENTESIS PROCEDURE FOR AM, HOWEVER, NOT SURE IT WILL BE DONE, CALLED RADIOLOGY TO CONFIRM, SO PLT CAN CAN BE INFUSED TONIGHT, BUT ONE AVAILABLE IN RADIOLOGY TO ANSWER PHONE CALL, NUMEROUS ATTEMPTS MADE ,NO ANSWER. WILL F/U WITH CHARGE REGARDING PROCEDURE.
[2018-03-26 20:00] VITALS: BP 91/62
[2018-03-26] MEDS: NEPRO 1,000 ML BOTTLE GT SCH (20:57)
[2018-03-26] MEDS ORDERED: INSULIN DETEMIR 100 UNIT/ML CARTRIDGE SQ SCH (21:00)
[2018-03-26] MEDS ORDERED: MEROPENEM 500 MG VIAL IV SCH (21:00)
[2018-03-26] MEDS: PYRIDOXINE HCL 50 MG TABLET GT SCH (21:11)
[2018-03-26] MEDS: INSULIN GLARGINE, 100 UNIT/ML CARTRIDGE SQ SCH (21:19)
--- NOTE | 2018-03-26 21:24 | NUR ---
PATIENT RECEIVED TRACHED WITH PORTEX 8 CUFFED IN PLACED. PT ON MECHANICAL VENT W/ SETTINGS OF AC 14, 500, 40%, +5. VENT PLUGGED INTO RED OUTLET. SX DONE, MOD THICK WHITE YELLOW SECRETIONS NOTED. ALARMS ON AND AUDIBLE. PATIENT STABLE AND NO SOB NOTED. Addendum: 03/26/18 at 2126 by KIRTI SEGURA RT Amended: Links added.
[2018-03-27] VITALS (7 sets, daily range): BP systolic 91–147; BP diastolic 57–81
[2018-03-27] MEDS: BLOOD SUGAR DIAGNOSTIC 1 EACH STRIP IN SCH ×5 (01:04→23:50)
[2018-03-27] MEDS: MEROPENEM 500 MG in IV NS 0.9% 50 ML IV SCH ×2 (01:05→11:33)
--- NOTE | 2018-03-27 06:04 | NUR ---
RN ARTIS CLOSING NOTE ENDORSED PT STABLE CLEAN AND DRY, LAB CALLED PT + GRAM COCCI IN CLUSTERS SEEN ON GRAM STAIN. WILL ENDORSE TO AM SHIFT NURSE TO RELAY FINDING TO MD SEEING PT.
[2018-03-27 07:23] LABS: BASOPHILS % (AUTO) 0.2 % (0.0-2.0); EOSINOPHILS % (AUTO) 4.5 % (0.0-6.0); HEMATOCRIT 24 % (39-51); HEMOGLOBIN 8.1 g/dL (13.5-17.5); LYMPHOCYTES # (AUTO) 0.4 /CMM (0.8-4.8); MEAN CORPUSCULAR HGB CONC 34 g/dl (31.0-36.0); MEAN CORPUSCULAR VOLUME 108 fL (80-96); MONOCYTES # (AUTO) 0.2 /CMM (0.1-1.30); MONOCYTES % (AUTO) 7.4 % (2.0-12.0); NEUTROPHILS # (AUTO) 2.3 /CMM (1.8-8.9); NEUTROPHILS % (AUTO) 73.9 % (43.0-81.0); RDW COEFFICIENT OF VARIATION 18.5 (11.5-15.0); WHITE BLOOD COUNT (AUTO) 3.1 K/uL (4.3-11.0)
[2018-03-27 07:39] LABS: CREATININE 3.5 mg/dL (0.6-1.3); MAGNESIUM 2.8 mg/dL (1.8-2.4); PHOSPHORUS 3.3 mg/dL (2.5-4.9); POTASSIUM 3.8 mmol/L (3.5-5.1)
[2018-03-27 07:42] LABS: PLATELET COUNT (AUTO) 39 /CMM (150-450)
--- NOTE | 2018-03-27 07:58 | NUR ---
ARTIS RN NOTE PATIENT IN BED, ALL NEED ATTENDED WIT RT AT BEDSIDE , ON HD AT HIS TIME WITH TRACH TO VENT SETTING ORDERED ON TELE MONITOR SR 67 ,ON IVF ORDERED WITH GTUBE FEEDING KEEP HOB ELEVATED AT ALL TIME,BED IN LOWEST AND LOCKED POSITION ,B WILL CONT TO MONITOR CLOSELY , CALLED TO RADIOLOGY AND US DEPARTMENT LEFT MESSAGE FOR PARACENTESIS
[2018-03-27] MEDS: ACETYLCYSTEINE 20% SOLN 800 MG/4 ML VIAL NEB SCH ×2 (08:00→16:02)
[2018-03-27] MEDS ORDERED: EPOETIN ALFA (10,000 UNIT) 10,000 UNIT/ML VIAL SQ ONE (08:00)
[2018-03-27] MEDS: CARVEDILOL 12.5 MG TABLET GT SCH ×2 (09:00→21:07)
[2018-03-27] MEDS: ALBUMIN 25% 25 GM in PREMIX 1 EA IV PRN (09:10)
[2018-03-27 09:36] LABS: EOSINOPHILS % (MANUAL) 2 % (0-4); LYMPHOCYTES % (MANUAL) 16 % (16-48); MONOCYTES % (MANUAL) 6 % (0-11.0); NEUTROPHILS % (MANUAL) 76 (42-76)
[2018-03-27] MEDS: LEVETIRACETAM SOL (5 ML) 100 MG/ML UDC GT SCH ×2 (09:50→21:08)
[2018-03-27] MEDS: PANTOPRAZOLE 40 MG VIAL IV SCH ×2 (09:50→16:05)
[2018-03-27] MEDS: SUCRALFATE 1 G/10 ML UDC GT SCH ×4 (09:50→21:08)
--- NOTE | 2018-03-27 09:50 | NUR ---
ARTIS RN NOTE HOLD COREG, PATIENT ON HD AT THIS TIME
[2018-03-27] MEDS: TRAMADOL HCL 50 MG TABLET PO SCH ×2 (09:51→21:09)
[2018-03-27] MEDS: FOLIC ACID 1 MG TABLET GT SCH (09:51)
[2018-03-27] MEDS: VIT B CMPLX 3/FA/VIT C/BIOTIN 1 TAB TABLET GT SCH (09:51)
[2018-03-27] MEDS: FLUCONAZOLE (100 MG) 100 MG TABLET GT SCH (09:51)
[2018-03-27] MEDS: GABAPENTIN 100 MG CAPSULE GT SCH ×2 (09:51→21:07)
[2018-03-27] MEDS: SEVELAMER CARBONATE 0.8 GM POWD.PACK GT SCH ×3 (09:51→21:08)
[2018-03-27] MEDS: ZINC SULFATE 220 MG CAPSULE GT SCH (09:51)
[2018-03-27] MEDS: LACTOBACILLUS RHAMNOSUS GG 1 EACH CAP.SPRINK GT SCH ×2 (09:51→16:05)
[2018-03-27] MEDS: BACITRACIN/POLYMYXIN B 15 GM TUBE TP SCH (09:52)
[2018-03-27] MEDS: Z GUARD REMEDY 2 OZ OINT TP SCH (09:52)
[2018-03-27] MEDS: PROSOURCE / PROSTAT (PYXIS) 30 ML UDC GT SCH ×3 (09:52→16:05)
[2018-03-27] MEDS: POLYVINYL ALCOHOL 15 ML BOTTLE EACHEYE SCH ×2 (09:53→21:46)
[2018-03-27] MEDS: INSULIN GLARGINE, 100 UNIT/ML CARTRIDGE SQ SCH ×2 (10:05→21:41)
--- NOTE | 2018-03-27 10:17 | NUR ---
ARTIS RN NOTE SPOKE WITH RADIOLOGISTS GEORGE NOTIFIED THAT PLATELETS 39 OK TO TRANSFUSE PLATELETS TODAY AND PARACENTESIS TOMORROW ,BLOOD BANK NOTIFIED
--- NOTE | 2018-03-27 11:09 | NUR ---
ARTIS RN NOTE HD COMPLETED REMOVED 3L OUT, BP112/62 P 75 T 98.0
[2018-03-27] MEDS: INSULIN REGULAR, HUMAN 100 UNIT/ML 3 ML VIAL SQ PRN ×2 (11:56→16:54)
--- NOTE | 2018-03-27 12:00 | NUR ---
ARTIS RN NOTE INCREASED G TUBE FEEDING AT 15 ML PER HOUR, NO RESIDUAL NOTED AT THIS TIME
--- NOTE | 2018-03-27 12:34 | NUR ---
ARTIS RN NOTE CALLED TO BLOOD BANK ,NO PLATELETS READY YET, WILL F\U
--- NOTE | 2018-03-27 14:48 | NUR ---
ARTIS AYALA NOTE CALLED BLOOD BANK NO PLATELETS AVAILABLE , DVT PUMPS APPLIED Addendum: 03/27/18 at 1518 by IVET ALANIS RN DR VELA AWARE THAT G TUBE FEEDING AT 15 ML PER HOUR A THIS TIME
[2018-03-27] MEDS ORDERED: VANCOMYCIN 1 GM in IV D5W 250 ML IV ONE (15:00)
[2018-03-27] MEDS: VANCOMYCIN 500 MG in IV NS 0.9% 100 ML IV PRN (15:00)
--- NOTE | 2018-03-27 15:18 | NUR ---
ARTIS RN NOTE BLOOD BANK CALLED PLATELETS WILL BE WITHIN 3 HOUR, WILL F\U
[2018-03-27] MEDS: IV D5/0.45 NACL 1,000 ML IV PRN (16:34)
--- NOTE | 2018-03-27 18:31 | NUR ---
ARTIS RN NOTE ALL NEEDS ATTENDED, CONT G TUBE FEEDING AT 15 ML PER HOUR , CONT ON IVF ORDERED KEEP CLEAN DRY TRACH AND ORAL SUCTION DONE , WILL CONT TO MONITOR CLOSELY
--- NOTE | 2018-03-27 19:02 | NUR ---
nelia rn note called to blood bank, stated to call in 20 min endorsed Mike next shift rn
--- NOTE | 2018-03-27 19:07 | NUR ---
RN NOTES PT RECEIVED IN BED. A/O X2. PT ON VENT TOLERATING WELL. PT TOLERATING GTUBE WELL AT 15ML PER HOUR. POSITIVE RESIDUALS AT 100. TELE MONITOR SR69. POSITIVE 20G IV RAC INTACT NEGATIVE SIGNS OF INFILTRATION/ INFECTION. PT STABLE CONDITION. WILL CONTINUE TO MONITOR. BED LOCKED LOWEST POSITION. CALL LIGHT WITHIN REACH.
[2018-03-27] MEDS: NYSTATIN CREAM 15 GM TUBE TP SCH (19:13)
[2018-03-27] MEDS: PYRIDOXINE HCL 50 MG TABLET GT SCH (21:53)
--- NOTE | 2018-03-27 23:00 | NUR ---
RN NOTES NEGATIVE RESIDUAL NOTED. PT TOLERATING GT FEEDING. INCREASED FEEDING FROM 15 TO 30ML ORDERED. PT TOLERATED PLATELET INFUSION WELL. VSS. NEGATIVE SIGNS OF DISTRESS. VS WNL. WILL CONTINUE TO MONITOR.
[2018-03-28] VITALS (7 sets, daily range): BP systolic 75–118; BP diastolic 42–66
[2018-03-28] MEDS: ACETYLCYSTEINE 20% SOLN 800 MG/4 ML VIAL NEB SCH ×4 (00:01→23:10)
[2018-03-28] MEDS: MEROPENEM 500 MG in IV NS 0.9% 50 ML IV SCH ×3 (00:29→23:30)
[2018-03-28] MEDS: BLOOD SUGAR DIAGNOSTIC 1 EACH STRIP IN SCH ×4 (06:07→23:30)
[2018-03-28 06:36] LABS: BASOPHILS % (AUTO) 0.3 % (0.0-2.0); EOSINOPHILS % (AUTO) 5.2 % (0.0-6.0); HEMATOCRIT 23 % (39-51); HEMOGLOBIN 7.8 g/dL (13.5-17.5); LYMPHOCYTES # (AUTO) 0.4 /CMM (0.8-4.8); LYMPHOCYTES % (AUTO) 16.5 % (20.0-44.0); MEAN CORPUSCULAR HGB CONC 35 g/dl (31.0-36.0); MEAN CORPUSCULAR VOLUME 106 fL (80-96); MONOCYTES # (AUTO) 0.2 /CMM (0.1-1.30); MONOCYTES % (AUTO) 7.2 % (2.0-12.0); NEUTROPHILS # (AUTO) 1.9 /CMM (1.8-8.9); NEUTROPHILS % (AUTO) 70.8 % (43.0-81.0); RDW COEFFICIENT OF VARIATION 18.6 (11.5-15.0); RED BLOOD CELL COUNT(AUTO) 2.12 MIL/uL (4.5-6.0); WHITE BLOOD COUNT (AUTO) 2.6 K/uL (4.3-11.0)
[2018-03-28 06:50] LABS: INR 1.27 (0.87-1.13)
[2018-03-28 07:09] LABS: CALCIUM, SERUM 8.6 mg/dL (8.5-10.1); CREATININE 2.9 mg/dL (0.6-1.3); MAGNESIUM 2.6 mg/dL (1.8-2.4); PHOSPHORUS 2.8 mg/dL (2.5-4.9); POTASSIUM 3.8 mmol/L (3.5-5.1)
--- NOTE | 2018-03-28 07:12 | NUR ---
RN NOTES PT STABLE CONDITION. VSS. NEGATIVE SIGNIFICANT CHANGE THROUGHOUT SHIFT. BED LOCKED AND LOWEST POSITION. CALL LIGHT WITHIN REACH. WILL ENDORSE TO ONCOMING RN.
--- NOTE | 2018-03-28 07:15 | NUR ---
RN INITIAL NOTES: REC'D PT ON BED, NOT IN ANY DISTRESS, A/O X 2, CHINESE SPEAKING. ON MV VIA TRACH, SATING AT 100%. ON TELEMONITOR, SR W/ HR 89 BPM. HAS R CW HD CATH INTACT. HAS R AC G20, PL, PATENT & INTACT W/ NO S/SX OF INFECTION/INFILTRATION NOTED, HAS D5 1/2 NS X 40 CC/HR INFUSING WELL. HAS GT, PATENT & INTACT, ON CONT TF NEPRO AT 10 CC/HR. ABDOMEN NOTED DISTENDED. PT FOR PARACENTESIS, AWAITING SCHED. PROVIDED COMFORT & SAFETY MEASURES. BED KEPT LOW & IN LOCKED POS. CALL LIGHT PLACED W/IN REACH. WILL CONTINUE TO MONITOR & ATTEND PT NEEDS.
[2018-03-28 07:39] LABS: PLATELET COUNT (AUTO) 43 /CMM (150-450)
[2018-03-28 08:10] LABS: BAND % (MANUAL) 3 % (0.0-5.0); EOSINOPHILS % (MANUAL) 5 % (0-4); LYMPHOCYTES % (MANUAL) 17 % (16-48); MONOCYTES % (MANUAL) 9 % (0-11.0); NEUTROPHILS % (MANUAL) 66 (42-76)
[2018-03-28] MEDS: PANTOPRAZOLE 40 MG VIAL IV SCH ×2 (08:16→17:15)
[2018-03-28] MEDS: LEVETIRACETAM SOL (5 ML) 100 MG/ML UDC GT SCH ×2 (08:16→21:42)
[2018-03-28] MEDS: FOLIC ACID 1 MG TABLET GT SCH (08:16)
[2018-03-28] MEDS: GABAPENTIN 100 MG CAPSULE GT SCH ×2 (08:16→21:00)
[2018-03-28] MEDS: LACTOBACILLUS RHAMNOSUS GG 1 EACH CAP.SPRINK GT SCH ×2 (08:16→17:16)
[2018-03-28] MEDS: FLUCONAZOLE (100 MG) 100 MG TABLET GT SCH (08:16)
[2018-03-28] MEDS: PROSOURCE / PROSTAT (PYXIS) 30 ML UDC GT SCH ×3 (08:18→17:16)
[2018-03-28] MEDS: CARVEDILOL 12.5 MG TABLET GT SCH ×2 (08:18→21:00)
[2018-03-28] MEDS: SEVELAMER CARBONATE 0.8 GM POWD.PACK GT SCH ×3 (08:20→21:42)
[2018-03-28] MEDS: SUCRALFATE 1 G/10 ML UDC GT SCH ×4 (08:21→21:42)
[2018-03-28] MEDS: TRAMADOL HCL 50 MG TABLET PO SCH ×2 (08:21→21:00)
[2018-03-28] MEDS: ZINC SULFATE 220 MG CAPSULE GT SCH (08:21)
[2018-03-28] MEDS: VIT B CMPLX 3/FA/VIT C/BIOTIN 1 TAB TABLET GT SCH (08:21)
[2018-03-28] MEDS: POLYVINYL ALCOHOL 15 ML BOTTLE EACHEYE SCH ×2 (08:22→21:43)
[2018-03-28] MEDS: Z GUARD REMEDY 2 OZ OINT TP SCH (08:22)
[2018-03-28] MEDS: NYSTATIN CREAM 15 GM TUBE TP SCH ×2 (08:23→17:16)
[2018-03-28] MEDS: BACITRACIN/POLYMYXIN B 15 GM TUBE TP SCH (08:23)
[2018-03-28] MEDS: INSULIN GLARGINE, 100 UNIT/ML CARTRIDGE SQ SCH ×2 (08:25→21:47)
[2018-03-28] MEDS: INSULIN REGULAR, HUMAN 100 UNIT/ML 3 ML VIAL SQ PRN ×2 (12:36→17:23)
--- NOTE | 2018-03-28 13:00 | NUR ---
RN NOTES: PT SEEN & EXAMINED BY DR. VELA W/ ORDERS NOTED & CARRIED OUT. PER , SHE WILL FIND OUT ABOUT THE SCHEDULE OF PARACENTESIS. Addendum: 03/28/18 at 1947 by DEA CÁRDENAS RN ADDENDUM: PER VANDANA CAMARILLO DC IVF.
--- NOTE | 2018-03-28 17:00 | NUR ---
RN NOTES: PT SEEN & EXAMINED BY DR. HERNANDEZ W/ ORDERS TO GIVE ALBUMIN 25% X1.
[2018-03-28] MEDS ORDERED: ALBUMIN 25% 25 GM in PREMIX 1 EA IV ONE (17:30)
--- NOTE | 2018-03-28 19:00 | NUR ---
RN CLOSING NOTES: NO ACUTE CHANGES NOTED W/IN SHIFT. PT TOLERATED MV VIA TRACH, SATING AT 100%. ON TELEMONITOR, STILL SR. R CW HD CATH KEPT INTACT. R AC G20, SL, KEPT PATENT & INTACT W/ NO S/SX OF INFECTION/INFILTRATION NOTED. GT KEPT PATENT & INTACT, STILL NOTED LEAKAGE ON THE GT SITE, ON CONT TF NEPRO AT 30 CC/HR. ABDOMEN STILL DISTENDED. PT STILL SCHED FOR PARACENTESIS & EGD. KEPT WELL RESTED. NEEDS ATTENDED. BED KEPT LOW & IN LOCKED POS. CALL LIGHT PLACED W/IN REACH. ENDORSED TO PM RN FOR KRYS.
--- NOTE | 2018-03-28 19:30 | NUR ---
RN INITIAL NOTES: RECEIVED REPORT FROM DAY SHIFT NURSE DEA. RECEIVED PATIENT ON BED, NOT IN ANY DISTRESS, A/O X 2, ANGOLAN SPEAKING. TRACH MIDLINE AND INTACT, ON PRESCRIBED VENT SETTINGS ORDERED, TOLERATING WELL, FREE FROM ANY S/S OF RESPIRATORY DISTRESS. NOTED WITH RCW HD CATH INTACT. NOTED R AC G20, PL, PATENT & INTACT W/ NO S/SX OF INFECTION/INFILTRATION NOTED. HAS GT, PATENT & INTACT, ON CONT TF NEPRO AT 30 CC/HR, TOLERATING WELL, MINIMAL GASTRIC RESIDUALS NOTED AT THIS TIME. ABDOMEN DISTENDED. PT FOR PARACENTESIS, AWAITING SCHEDULE. PROVIDED COMFORT & SAFETY MEASURES. BED KEPT LOW & IN LOCKED POS. CALL LIGHT PLACED W/IN REACH. WILL CONTINUE TO MONITOR & ATTEND PT NEEDS.
[2018-03-28] MEDS: MIDODRINE HCL (5MG) 5 MG TABLET GT PRN (20:21)
[2018-03-28] MEDS: PYRIDOXINE HCL 50 MG TABLET GT SCH (21:42)
--- NOTE | 2018-03-28 22:59 | NUR ---
GROUP THERAPIST NOTES SPOKE TO DR VELA REGARDING LATEST BP 75/42. PER DR VELA, GIVE ALBUMIN 25% 200ML X1, THEN IF SYSTOLIC BP <90, GIVE 500ML NS BOLUS. NEW ORDERS READ BACK FOR CLARIFICATION, WILL CARRY OUT ALL NEW ORDERS AND CONTINUE TO CLOSELY MONITOR
[2018-03-28] MEDS ORDERED: ALBUMIN 25% 200 ML IV ONE (23:19)
[2018-03-28] MEDS ORDERED: ALBUMIN 25% 50 GM in PREMIX 1 EA IV ONE (23:30)
[2018-03-29] VITALS (10 sets, daily range): BP systolic 91–105; BP diastolic 45–60
--- NOTE | 2018-03-29 | NUR ---
RN NOTES TUBE FEEDING PLACED ON HOLD, TURNED OFF. GT FLUSHED. PATIENT SCHEDULED FOR EGD AND PARACENTESIS LATER TODAY. WILL MONITOR CLOSELY
--- NOTE | 2018-03-29 03:30 | NUR ---
RN NOTES ALBUMIN INFUSION COMPLETE, BP 99/68 AT THIS TIME, WILL CONTINUE TO CLSOELY MONITOR
--- NOTE | 2018-03-29 05:15 | NUR ---
MILITARY EXCHANGE WIRELESS MANAGER NOTES PATIENT'S BLOOD PRESSURE CURRENTLY 87/49. PER MISCELLANEOUS ORDER FROM DR VITALY VELA, GIVE 500ML NS BOLUS. WILL INITIATE BOLUS AND MONITOR BP CLOSELY
[2018-03-29] MEDS ORDERED: IV NS 0.9% 500 ML IV ONE (05:30)
[2018-03-29] MEDS: MIDODRINE HCL (5MG) 5 MG TABLET GT PRN ×2 (05:36→12:56)
[2018-03-29] MEDS: BLOOD SUGAR DIAGNOSTIC 1 EACH STRIP IN SCH ×3 (06:21→17:21)
--- NOTE | 2018-03-29 07:00 | NUR ---
RN CLOSING NOTES PATIENT RESING IN BED, APPEARS COMFORTABLE. TUBE FEEDING OFF SINCE MIDNIGHT FOR SCHEDULED PROCEDURES TODAY. BP BORDERLINE LOW, BUT SBP SUSTAINING ABOVE 90 AT THIS TIME. WILL ENDORSE THE PATIENT TO THE AM SHIFT NURSE FOR CONTINUITY OF CARE
[2018-03-29 07:01] LABS: BASOPHILS % (AUTO) 0.3 % (0.0-2.0); EOSINOPHILS % (AUTO) 3.5 % (0.0-6.0); HEMATOCRIT 21 % (39-51); HEMOGLOBIN 7.2 g/dL (13.5-17.5); LYMPHOCYTES # (AUTO) 0.6 /CMM (0.8-4.8); MEAN CORPUSCULAR HGB CONC 34 g/dl (31.0-36.0); MEAN CORPUSCULAR VOLUME 107 fL (80-96); MONOCYTES # (AUTO) 0.3 /CMM (0.1-1.30); MONOCYTES % (AUTO) 11.7 % (2.0-12.0); NEUTROPHILS # (AUTO) 1.7 /CMM (1.8-8.9); NEUTROPHILS % (AUTO) 63.5 % (43.0-81.0); RDW COEFFICIENT OF VARIATION 18.6 (11.5-15.0); WHITE BLOOD COUNT (AUTO) 2.7 K/uL (4.3-11.0)
[2018-03-29 07:11] LABS: RED BLOOD CELL COUNT(AUTO) 1.96 MIL/uL (4.5-6.0)
[2018-03-29 07:12] LABS: PLATELET COUNT (AUTO) 39 /CMM (150-450)
--- NOTE | 2018-03-29 07:27 | NUR ---
MESSAGE TO SOLDERER ASSEMBLER MD TO NOTIFY OF PLATELETS 39.
--- NOTE | 2018-03-29 07:28 | NUR ---
RECEIVED PATIENT VENT TRACH DEPENDENT. TUBE FEEDING ON HOLD FROM [place] DUE TO SCHEDULED EGD TODAY; IF STABLE. G TUBE CLAMPED NO RESIDUAL NOTED. PENDING STOOL SAMPLE FOR OB STOOL. NO S/S ACTIVE BLEEDING NOTED. PATIENT ABDOMEN SEVERELY DISTENDED UMBILICUS POPPED OUT; PENDING PARACENTESIS IF STABLE. PATIENT BLOOD PRESSURE STABLE AT THIS TIME. BEDSIDE MONITORING IN PLACE; FREQUENT BP CHECKS. PATIENT SCHEDULED FOR HD TODAY. PER MECHELLE RN PATIENT BP LOW IN THE NIGHT ORDERS CARRIED OUT BY DR VELA ALBUMIN AND [id number] 500NS. PATIENT SUPINE AT THIS TIME. WILL ROUND PRN
[2018-03-29] MEDS: SUCRALFATE 1 G/10 ML UDC GT SCH ×4 (07:30→21:16)
--- NOTE | 2018-03-29 07:35 | NUR ---
PER DR VELA NOTIFY DR TURNER IF WANTING PLATELET TRANSFUSION. PER DR VELA IF BLOOD PRESSURE CONSTANT UNDER 90 PLEASE NOTIFY. AT THIS TIME SYSTOLIC 104 Addendum: 03/29/18 at 0757 by LO GAYTAN RN MESSAGE TO DR TURNER HEADING MAKER
[2018-03-29 07:42] LABS: CALCIUM, SERUM 8.1 mg/dL (8.5-10.1); CREATININE 3.5 mg/dL (0.6-1.3); MAGNESIUM 2.6 mg/dL (1.8-2.4); PHOSPHORUS 3.1 mg/dL (2.5-4.9); POTASSIUM 3.5 mmol/L (3.5-5.1)
[2018-03-29] MEDS: ACETYLCYSTEINE 20% SOLN 800 MG/4 ML VIAL NEB SCH ×3 (07:49→23:05)
[2018-03-29] MEDS: CARVEDILOL 12.5 MG TABLET GT SCH ×2 (08:44→21:00)
[2018-03-29] MEDS: PANTOPRAZOLE 40 MG VIAL IV SCH ×2 (08:44→17:17)
--- NOTE | 2018-03-29 08:45 | NUR ---
FOLLOW UP MESSAGE LEFT TO DR TURNER IN REGARDS TO PLATELETS.
[2018-03-29] MEDS: POLYVINYL ALCOHOL 15 ML BOTTLE EACHEYE SCH ×2 (08:46→21:18)
[2018-03-29] MEDS: NYSTATIN CREAM 15 GM TUBE TP SCH ×2 (08:46→17:17)
[2018-03-29] MEDS: BACITRACIN/POLYMYXIN B 15 GM TUBE TP SCH (08:46)
[2018-03-29] MEDS: Z GUARD REMEDY 2 OZ OINT TP SCH (08:47)
[2018-03-29] MEDS: INSULIN GLARGINE, 100 UNIT/ML CARTRIDGE SQ SCH ×2 (08:47→21:00)
[2018-03-29] MEDS ORDERED: EPOETIN ALFA (10,000 UNIT) 10,000 UNIT/ML VIAL SQ ONE (09:00)
--- NOTE | 2018-03-29 09:08 | NUR ---
PER DR TURNER NO PLATELET TRANSFUSION FOR PATIENT HE IS NOT RESPONSIVE
--- NOTE | 2018-03-29 09:16 | NUR ---
PER DR TURNER ORDER DDAVP IV 20MCG Q12H X 3 DOSES.
--- NOTE | 2018-03-29 09:18 | NUR ---
MARIO HD RN AT BEDSIDE. PER DR VELA PROCEED WITH HD
[2018-03-29 09:37] LABS: BAND % (MANUAL) 1 % (0.0-5.0); EOSINOPHILS % (MANUAL) 2 % (0-4); LYMPHOCYTES % (MANUAL) 21 % (16-48); MONOCYTES % (MANUAL) 5 % (0-11.0); NEUTROPHILS % (MANUAL) 71 (42-76)
[2018-03-29] MEDS: ALBUMIN 25% 25 GM in PREMIX 1 EA IV PRN ×2 (09:41→21:20)
--- NOTE | 2018-03-29 10:41 | NUR ---
SPOKE TO STELLA IN SURGERY. PATIENT IS NOT ON SCHEDULE FOR TODAY FOR EGD. MESSAGE TO FAHEEM MAGNETO REPAIRER TO CLARIFY IF NEED TO KEEP NPO. MESSAGE TO US IN REGARDS TO PARACENTESIS THAT PER MD NO PLATELET TX NECESSARY
--- NOTE | 2018-03-29 11:26 | NUR ---
HD COMPLETED. NOTHING OUT. PATIENT TOLERATED WELL. X1 DOSE OF ALBUMIN. BP STABLE. WILL CONTINUE TO MONITOR.
--- NOTE | 2018-03-29 12:17 | NUR ---
UPDATED FAHEEM METAL DRILL OPERATOR ON PATIENT CONDITION. PER FAHEEM RESUME MEDICATIONS AND FEEDING AT THIS TIME.
[2018-03-29] MEDS: NEPRO 1,000 ML BOTTLE GT SCH (12:23)
[2018-03-29] MEDS: SEVELAMER CARBONATE 0.8 GM POWD.PACK GT SCH ×3 (12:24→21:16)
[2018-03-29] MEDS: LEVETIRACETAM SOL (5 ML) 100 MG/ML UDC GT SCH ×2 (12:24→21:16)
[2018-03-29] MEDS: DESMOPRESSIN 20 MCG in IV NS 0.9% 50 ML IV SCH (12:24)
[2018-03-29] MEDS: VIT B CMPLX 3/FA/VIT C/BIOTIN 1 TAB TABLET GT SCH (12:24)
[2018-03-29] MEDS: LACTOBACILLUS RHAMNOSUS GG 1 EACH CAP.SPRINK GT SCH ×2 (12:25→17:17)
[2018-03-29] MEDS: GABAPENTIN 100 MG CAPSULE GT SCH ×2 (12:25→21:16)
[2018-03-29] MEDS: ZINC SULFATE 220 MG CAPSULE GT SCH (12:25)
[2018-03-29] MEDS: FOLIC ACID 1 MG TABLET GT SCH (12:25)
[2018-03-29] MEDS: TRAMADOL HCL 50 MG TABLET PO SCH ×2 (12:25→21:18)
[2018-03-29] MEDS: FLUCONAZOLE (100 MG) 100 MG TABLET GT SCH (12:26)
[2018-03-29] MEDS: PROSOURCE / PROSTAT (PYXIS) 30 ML UDC GT SCH ×3 (12:26→17:17)
[2018-03-29] MEDS: MEROPENEM 500 MG in IV NS 0.9% 50 ML IV SCH (12:51)
--- NOTE | 2018-03-29 13:04 | NUR ---
PATIENT HAD A SMEAR OF BM. NOT ENOUGH FOR STOOL SAMPLE. WILL COLLECT ONCE PATIENT HAS BM
--- NOTE | 2018-03-29 13:24 | NUR ---
PER US DR COMBS WOULD LIKE DR VELA TO SPEAK WITH HIM TO CONFIRM OK TO PROCEED WITH PARACENTESIS. MESSAGE TO DR VELA.
--- NOTE | 2018-03-29 14:49 | NUR ---
ANOTHER MESSAGE TO DR VELA TO CALL DR COMBS TO CONFIRM OKAY FOR PARACENTESIS OR NOT
--- NOTE | 2018-03-29 15:30 | NUR ---
DR SCHWARTZ AT BEDSIDE. SPOKE WITH DR COMBS AND CONFIRMED GO AHEAD WITH PARACENTESIS. PER DR SCHWARTZ REMOVE ALL THE FLUID ABLE TO BE REMOVED.
[2018-03-29] MEDS ORDERED: LIDOCAINE HCL/PF 1% 30 ML SDV ONE (15:40)
[2018-03-29] MEDS: VANCOMYCIN 500 MG in IV NS 0.9% 100 ML IV PRN (17:16)
--- NOTE | 2018-03-29 18:00 | NUR ---
PATIENT COMPLETED PARACENTESIS. 38392 ML OUT CLEAR YELLOW FLUID. PATIENT ABDOMEN SOFT. VS STABLE AT THIS TIME. WILL CONTINUE TO MONITOR CLOSELY.
--- NOTE | 2018-03-29 19:14 | NUR ---
PATIENT STABLE. BP STABLE. ALL DUE MEDS GIVEN AND ALL NEEDS MET. FAMILY AT BEDSIDE. TUBE FEEDING RUNNING ORDERED NO RESIDUAL NOTED. NPO MN RN AWARE. PATIENT VENT STABLE. IV SITE CLEAN DRY INTACT PATENT. NO BLEEDING NOTED FROM PARACENTESIS. PENDING OB STOOL. SAFETY PREACAUTIONS IN PLACE. ASPIRATION PRECAUTIONS IN PLACE. CARE ENDORSED TO RN FOR KRYS
--- NOTE | 2018-03-29 19:30 | NUR ---
ARTIS RN INITIAL NOTE PT RECEIVED AWAKE WITH FAMILY AT BEDSIDE. A/O X1 AND ABLE TO NOD YES AND NO. ON MECH VENT WITH SETTINGS WELL TOLERATED. HOB ELEVATED AND ON ASPIRATION PRECAUTIONS. G TUBE IN PLACE AND NO RESIDUALS NOTED. IV CLEAN, DRY AND FLUSHING WELL. WILL CONTINUE TO MONITOR.
[2018-03-29 19:42] LABS: BASOPHILS % (AUTO) 0.4 % (0.0-2.0); EOSINOPHILS % (AUTO) 3.8 % (0.0-6.0); HEMATOCRIT 24 % (39-51); HEMOGLOBIN 8.3 g/dL (13.5-17.5); LYMPHOCYTES # (AUTO) 0.4 /CMM (0.8-4.8); LYMPHOCYTES % (AUTO) 12.8 % (20.0-44.0); MEAN CORPUSCULAR HGB CONC 34 g/dl (31.0-36.0); MEAN CORPUSCULAR VOLUME 107 fL (80-96); MONOCYTES # (AUTO) 0.2 /CMM (0.1-1.30); MONOCYTES % (AUTO) 6.1 % (2.0-12.0); NEUTROPHILS # (AUTO) 2.5 /CMM (1.8-8.9); NEUTROPHILS % (AUTO) 76.9 % (43.0-81.0); RED BLOOD CELL COUNT(AUTO) 2.28 MIL/uL (4.5-6.0); WHITE BLOOD COUNT (AUTO) 3.2 K/uL (4.3-11.0)
[2018-03-29 19:44] LABS: PLATELET COUNT (AUTO) 43 /CMM (150-450)
--- NOTE | 2018-03-29 20:39 | NUR ---
PT RECEIVED TRACH PORTEX 8 ON 840 VENT. PT IS AWAKE NO RESP DISTRESS. PT TOLERATING VENT SETTINGS. SX'D FOR MOD AMT OF THICK WHITE SECRETIONS. VENT ALARMS SET AND AUDIBLE. AMBU BAG AT BEDSIDE. WILL CONTINUE TO MONITOR. Addendum: 03/29/18 at 2040 by ISAAC HARRINGTON RT Amended: Links added.
[2018-03-29 20:41] LABS: EOSINOPHILS % (MANUAL) 4 % (0-4); LYMPHOCYTES % (MANUAL) 15 % (16-48); MONOCYTES % (MANUAL) 5 % (0-11.0); NEUTROPHILS % (MANUAL) 76 (42-76)
[2018-03-29] MEDS: PYRIDOXINE HCL 50 MG TABLET GT SCH (21:16)
[2018-03-30] VITALS: BP_SYST 112; BP_SYST 125; BP_DIAS 55
[2018-03-30] MEDS: MEROPENEM 500 MG in IV NS 0.9% 50 ML IV SCH ×2 (00:01→11:13)
[2018-03-30] MEDS: BLOOD SUGAR DIAGNOSTIC 1 EACH STRIP IN SCH ×5 (00:02→23:03)
[2018-03-30] MEDS: DESMOPRESSIN 20 MCG in IV NS 0.9% 50 ML IV SCH ×2 (00:58→13:40)
[2018-03-30 04:00] VITALS: BP 104/45
--- NOTE | 2018-03-30 07:02 | NUR ---
ARTIS RN CLOSING NOTE PT REMAINED STABLE DURING SHIFT. NO ACUTE DISTRESS NOTED. VENT SETTINGS WELL TOLERATED. NPO STATUS MAINTAINED FROM MIDNIGHT. SUCTIONED NEEDED. REPOSITIONED Q2H. ALL NEEDS ATTENDED TO PROMPTLY. WILL ENDORSE TO NEXT SHIFT FOR CONTINUITY OF CARE.
[2018-03-30 07:10] LABS: ALBUMIN 3.1 g/dL (3.4-5.0); BILIRUBIN,TOTAL 1.3 mg/dL (0.2-1.0); CALCIUM, SERUM 8.2 mg/dL (8.5-10.1); CREATININE 3.2 mg/dL (0.6-1.3); POTASSIUM 3.6 mmol/L (3.5-5.1); TOTAL PROTEIN, SERUM 6.4 g/dL (6.4-8.2)
[2018-03-30] MEDS: ACETYLCYSTEINE 20% SOLN 800 MG/4 ML VIAL NEB SCH ×3 (07:18→23:31)
[2018-03-30] MEDS: SUCRALFATE 1 G/10 ML UDC GT SCH ×4 (07:30→21:29)
--- NOTE | 2018-03-30 07:55 | NUR ---
RN NOTE RECEIVED PATIENT AWAKE WATCHING T.V. ALERT AND ORIENT X1 BUT IS ABLE TO SHAKE HIS HEAD FOR YES/NO QUESTIONS IN HIS SAV[place]ONGA LANGUAGE CZECH. ON MECH VENT WITH APPROPRIATE SETTINGS WELL TOLERATED. HOB ELEVATED AND ON ASPIRATION PRECAUTIONS. NO DISTRESS NOTED, PATIENT DENIES ANY PAIN AT THIS TIME. ON RN INTERNATIONAL SINUS RHYTHM HR OF 69. GT SITE INTACT AND PATENT. PATENT CURRENTLY NPO SECONDARY TO EGD PROCEDURE LATER IN THE AFTERNOON. IV SITE INTACT AND PATENT. ALL SAFETY MEASURES DONE. BED LOCKED AND LOW POSITION. PLACED CALL LIGHT WITHIN REACH. WILL CONTINUE TO MONITOR.
[2018-03-30 08:00] VITALS: BP_SYST 120; BP_SYST 85; BP_DIAS 42; BP_DIAS 65
[2018-03-30] MEDS: LEVETIRACETAM SOL (5 ML) 100 MG/ML UDC GT SCH ×2 (08:12→21:25)
[2018-03-30] MEDS: GABAPENTIN 100 MG CAPSULE GT SCH ×2 (08:12→21:29)
[2018-03-30] MEDS: TRAMADOL HCL 50 MG TABLET PO SCH ×2 (08:13→21:00)
[2018-03-30] MEDS: PANTOPRAZOLE 40 MG VIAL IV SCH ×2 (08:13→17:16)
[2018-03-30] MEDS: FLUCONAZOLE (100 MG) 100 MG TABLET GT SCH (08:13)
[2018-03-30] MEDS: POLYVINYL ALCOHOL 15 ML BOTTLE EACHEYE SCH ×2 (08:13→21:30)
[2018-03-30] MEDS: CARVEDILOL 12.5 MG TABLET GT SCH ×2 (08:14→21:00)
[2018-03-30] MEDS: Z GUARD REMEDY 2 OZ OINT TP SCH (08:49)
[2018-03-30] MEDS: SEVELAMER CARBONATE 0.8 GM POWD.PACK GT SCH ×3 (09:00→21:25)
[2018-03-30] MEDS: LACTOBACILLUS RHAMNOSUS GG 1 EACH CAP.SPRINK GT SCH ×2 (09:00→17:00)
[2018-03-30] MEDS: VIT B CMPLX 3/FA/VIT C/BIOTIN 1 TAB TABLET GT SCH (09:00)
[2018-03-30] MEDS: FOLIC ACID 1 MG TABLET GT SCH (09:00)
[2018-03-30] MEDS: PROSOURCE / PROSTAT (PYXIS) 30 ML UDC GT SCH ×3 (09:00→17:00)
[2018-03-30] MEDS: ZINC SULFATE 220 MG CAPSULE GT SCH (09:00)
[2018-03-30] MEDS: INSULIN GLARGINE, 100 UNIT/ML CARTRIDGE SQ SCH ×2 (09:00→21:00)
[2018-03-30] MEDS: NYSTATIN CREAM 15 GM TUBE TP SCH ×2 (09:50→16:26)
[2018-03-30] MEDS: BACITRACIN/POLYMYXIN B 15 GM TUBE TP SCH (09:50)
--- NOTE | 2018-03-30 09:59 | NUR ---
RN NOTE HELD LANTUS INSULIN DOSE SECONDARY TO NPO FOR EGD PROCEDURE.
[2018-03-30 12:00] VITALS: BP 95/44
[2018-03-30 16:00] VITALS: BP_SYST 114; BP_SYST 95; BP_DIAS 44; BP_DIAS 52
[2018-03-30] MEDS: MIDODRINE HCL (5MG) 5 MG TABLET GT PRN (16:19)
--- NOTE | 2018-03-30 17:23 | NUR ---
RT NOTE: PATIENT RECEIVED TRACHED ON MECHANICAL VENT. ALARMS VERIFIED AND AUDIBLE. SUCTIONED AND LAVAGED THICK DEAN SECRETIONS. VENT PLUGGED INTO RED OUTLET. AMBU BAG AT [facility].
--- NOTE | 2018-03-30 18:55 | NUR ---
RN NOTE PATIENT REMAINED STABLE THROUGHOUT SHIFT. PATIENT REMAINS NPO AND AWAITING EGD PROCEDURE. NO ACUTE CHANGES OR DISTRESS NOTED. WILL ENDORSE TO NEXT SHIFT TO CONTINUE CONTINUITY OF CARE.
--- NOTE | 2018-03-30 19:30 | NUR ---
RN NOTES PATIENT S/P EGD, WITH ORDERS NOW TO RESUME TF AND RESUME GT MEDS.
[2018-03-30 20:00] VITALS: BP 102/45
[2018-03-30] MEDS: PYRIDOXINE HCL 50 MG TABLET GT SCH (21:25)
[2018-03-30] MEDS: NEPRO 1,000 ML BOTTLE GT SCH (22:00)
--- NOTE | 2018-03-30 22:58 | NUR ---
HAT CLEANER: NOTES RANDOM BLOOD GLUCOSE 101, OFF TUBE FEEDING THROUGHOUT THE DAY FOR EGD, LANTUS 30 UNITS HELD. WILL CONTINUE TO CLOSELY MONITOR
[2018-03-31] VITALS: BP 117/57
[2018-03-31 04:00] VITALS: BP 103/52
[2018-03-31] MEDS: BLOOD SUGAR DIAGNOSTIC 1 EACH STRIP IN SCH ×4 (06:00→23:49)
[2018-03-31 06:53] LABS: CALCIUM, SERUM 8.3 mg/dL (8.5-10.1); CREATININE 4.2 mg/dL (0.6-1.3); POTASSIUM 4.1 mmol/L (3.5-5.1)
--- NOTE | 2018-03-31 07:00 | NUR ---
RN CLOSING NOTES PATIENT RESTING IN BED, APPEARS COMFORTABLE. WILL ENDORSE THE PATIENT TO THE AM SHIFT NURSE FOR CONTINUITY OF CARE
[2018-03-31] MEDS: ACETYLCYSTEINE 20% SOLN 800 MG/4 ML VIAL NEB SCH ×3 (07:30→23:45)
[2018-03-31 08:00] VITALS: BP 97/50
[2018-03-31] MEDS: POLYVINYL ALCOHOL 15 ML BOTTLE EACHEYE SCH ×2 (08:12→21:02)
[2018-03-31] MEDS: SUCRALFATE 1 G/10 ML UDC GT SCH ×4 (08:12→21:03)
[2018-03-31] MEDS: NYSTATIN CREAM 15 GM TUBE TP SCH ×2 (08:13→18:02)
[2018-03-31] MEDS: VIT B CMPLX 3/FA/VIT C/BIOTIN 1 TAB TABLET GT SCH (08:13)
[2018-03-31] MEDS: SEVELAMER CARBONATE 0.8 GM POWD.PACK GT SCH ×3 (08:13→21:03)
[2018-03-31] MEDS: ZINC SULFATE 220 MG CAPSULE GT SCH (08:13)
[2018-03-31] MEDS: LACTOBACILLUS RHAMNOSUS GG 1 EACH CAP.SPRINK GT SCH ×2 (08:13→17:56)
[2018-03-31] MEDS: LEVETIRACETAM SOL (5 ML) 100 MG/ML UDC GT SCH ×2 (08:13→21:03)
[2018-03-31] MEDS: PANTOPRAZOLE 40 MG VIAL IV SCH ×2 (08:13→17:57)
[2018-03-31] MEDS: GABAPENTIN 100 MG CAPSULE GT SCH ×2 (08:13→21:03)
[2018-03-31] MEDS: BACITRACIN/POLYMYXIN B 15 GM TUBE TP SCH (08:14)
[2018-03-31] MEDS: PROSOURCE / PROSTAT (PYXIS) 30 ML UDC GT SCH ×3 (08:14→17:57)
[2018-03-31] MEDS: Z GUARD REMEDY 2 OZ OINT TP SCH (08:14)
[2018-03-31] MEDS: TRAMADOL HCL 50 MG TABLET PO SCH ×2 (08:16→21:02)
[2018-03-31] MEDS: CARVEDILOL 12.5 MG TABLET GT SCH ×2 (08:16→21:04)
[2018-03-31] MEDS: FOLIC ACID 1 MG TABLET GT SCH (08:20)
[2018-03-31] MEDS: MIDODRINE HCL (5MG) 5 MG TABLET GT PRN (08:21)
[2018-03-31] MEDS: INSULIN GLARGINE, 100 UNIT/ML CARTRIDGE SQ SCH ×2 (08:22→21:17)
--- NOTE | 2018-03-31 08:30 | NUR ---
RN NOTE PT LANTUS 30 U HELD THIS AM DUE TO BG TRENDING LOW/WNL. WILL MONITOR BG PER PROTOCOL.
--- NOTE | 2018-03-31 11:00 | NUR ---
RN NOTE PT HAD HD CLENINING ONLY, NO FLUIDS REMOVED. PT STABLE, NO DISTRESS NOTED. WILL MONITTOR.
[2018-03-31] MEDS: METOCLOPRAMIDE HCL 10 MG/2 ML VIAL IV PRN (11:36)
[2018-03-31] MEDS: INSULIN REGULAR, HUMAN 100 UNIT/ML 3 ML VIAL SQ PRN ×3 (11:43→23:50)
[2018-03-31 12:00] VITALS: BP 127/65
[2018-03-31] MEDS: VANCOMYCIN 500 MG in IV NS 0.9% 100 ML IV PRN (12:55)
--- NOTE | 2018-03-31 13:18 | NUR ---
RN NOTE PT CO NAUSEA X1, REGLAN GIVEN. PT ALSO HAD A SACRAL WOUND DEBRIDEMENT BY WES SZYMANSKI AND CHANGED WOUND CARE FOR SACRAL WOUND TO HYDROGEL AND MEPILEX.
[2018-03-31 16:00] VITALS: BP 127/58
--- NOTE | 2018-03-31 19:45 | NUR ---
ICU/INDUSTRIAL WASTE TREATMENT TECHNICIAN RECEIVED REPORT FROM DAY NURSE, PT APPEARS TO BE RESPONSIVE TO STIMULI OPENS EYES ON OCCASION. PT HAS G-TUBE WITH FEEDING, NO RESIDUALS NOTED AT THIS TIME WITH PT APPEARS TO BE TOLERATING FEEDING. PT HAS NO F/C. PT DID HAVE A MAGNOLIA OF LOOSE WATERY STOOL, PT WAS CHANGED APPLIED WITH Z GUARD. THERE ARE A FEW SKIN ISSUES THAT ARE ADDRESSED ON FLOW SHEET. RIGHT CHEST WALL HD CATH. PT WAS TURNED AND REPOSITIONED FOR COMFORT AND CARE. WILL CONTINUE TO MONITOR THIS PT.
[2018-03-31 20:00] VITALS: BP 115/55
[2018-03-31] MEDS: PYRIDOXINE HCL 50 MG TABLET GT SCH (21:03)
[2018-03-31] MEDS: HYDROGEL DRESSING 90 GM TUBE TP SCH (21:05)
--- NOTE | 2018-03-31 21:30 | NUR ---
ARTIS/WORK ORDER CLERK PT'S BLOOD SUGAR WAS 157, PT WAS GIVEN 30 UNITS LANTUS. PT HAS G/TUBE FEEDING TO COVER THIS. WILL MONITOR THIS PT, AND BLOOD SUGAR. PT WAS TURNED AND REPOSITIONED FOR COMFORT AND CARE.
[2018-04-01] VITALS: BP 105/55
--- NOTE | 2018-04-01 00:01 | NUR ---
ARTIS/AUDIO VISUAL SECRETARY PT'S BLOOD SUGAR IS 139, THERE IS 2 UNITS REGULAR COVERAGE FOR THIS PER MD'S ORDERS. WILL RECHECK THE SUGAR AGAIN IN 6 HRS. PT WAS TURNED AND REPOSITIONED FOR COMFORT AND CARE.
--- NOTE | 2018-04-01 02:20 | NUR ---
ARTIS/HAIR COLORIST PT GIVEN AM CARE, ALONG WITH ORAL CARE. PT TOLERATED THIS WELL. PT REMAINS ON CURRENT VENT SETTINGS AT 100%. PT WAS THEN TURNED AND REPOSITIONED FOR COMFORT AND CARE.
[2018-04-01 04:00] VITALS: BP_SYST 114; BP_DIAS 58; BP_DIAS 59
[2018-04-01] MEDS: BLOOD SUGAR DIAGNOSTIC 1 EACH STRIP IN SCH ×3 (05:55→17:35)
[2018-04-01] MEDS: SUCRALFATE 1 G/10 ML UDC GT SCH ×4 (05:58→21:34)
[2018-04-01] MEDS: NEPRO 1,000 ML BOTTLE GT SCH (05:59)
--- NOTE | 2018-04-01 06:21 | NUR ---
ARTIS/HAND STONE POLISHER PT'S BLOOD SUGAR WAS 85, THERE IS NO COVERAGE FOR THIS PER MD ORDERS. PT WAS CLEANED, STOOL IS SOFT, PT HAD BEEN GIVEN REGLAN IVP FOR NAUSEA. PT WAS TURNED AND REPOSITIONED FOR COMFORT AND CARE.
[2018-04-01 07:00] LABS: BASOPHILS % (AUTO) 0.2 % (0.0-2.0); EOSINOPHILS % (AUTO) 0.9 % (0.0-6.0); HEMATOCRIT 26 % (39-51); HEMOGLOBIN 8.9 g/dL (13.5-17.5); LYMPHOCYTES # (AUTO) 0.5 /CMM (0.8-4.8); LYMPHOCYTES % (AUTO) 7.6 % (20.0-44.0); MEAN CORPUSCULAR HGB CONC 35 g/dl (31.0-36.0); MEAN CORPUSCULAR VOLUME 108 fL (80-96); MONOCYTES # (AUTO) 0.3 /CMM (0.1-1.30); MONOCYTES % (AUTO) 4.4 % (2.0-12.0); NEUTROPHILS # (AUTO) 6.2 /CMM (1.8-8.9); NEUTROPHILS % (AUTO) 86.9 % (43.0-81.0); RDW COEFFICIENT OF VARIATION 20.1 (11.5-15.0); RED BLOOD CELL COUNT(AUTO) 2.39 MIL/uL (4.5-6.0); WHITE BLOOD COUNT (AUTO) 7.2 K/uL (4.3-11.0)
[2018-04-01 07:08] LABS: CALCIUM, SERUM 8.4 mg/dL (8.5-10.1); CREATININE 3.4 mg/dL (0.6-1.3); MAGNESIUM 2.5 mg/dL (1.8-2.4); PHOSPHORUS 3.1 mg/dL (2.5-4.9); POTASSIUM 3.4 mmol/L (3.5-5.1)
[2018-04-01 07:14] LABS: PLATELET COUNT (AUTO) 48 /CMM (150-450)
--- NOTE | 2018-04-01 07:30 | NUR ---
POLE PEELING MACHINE OPERATOR HELPER INITIAL NOTES: RECEIVED PT IN BED, AWAKE. ALERT X1. RESPONDS TO NAME AND TACTILE STIMULI. PT BLINKS TO VERBAL STIMULI WELL. TRACH AND VENT PT. ON VENT SETTINGS ORDERED, TOLERATING WELL. NO SOB NOTED AT THIS TIME. O2 SATURATION 100%. ON TELE MONITOR SR. PT ANURIC DUE TO DIALYSIS PT. PT ON GT FEEDING ORDERED, NEPRO AT 30CC/HR, TOLERATING WELL. NO RESIDUAL NOTED. IV TO RAC #20G, PATENT AND FLUSHES WELL. PERMACATH TO RIGHT CHEST WALL. NO SIGNS OF INFECTION NOTED. PLAN OF CARE DISCUSSED WITH PT. BED IN LOW, LOCKED POSITION. CALL LIGHT WITHIN REACH. WILL CONTINUE TO MONITOR.
[2018-04-01 07:37] LABS: BAND % (MANUAL) 1 % (0.0-5.0); EOSINOPHILS % (MANUAL) 1 % (0-4); LYMPHOCYTES % (MANUAL) 7 % (16-48); MONOCYTES % (MANUAL) 3 % (0-11.0); NEUTROPHILS % (MANUAL) 88 (42-76)
[2018-04-01 08:00] VITALS: BP 114/52
[2018-04-01] MEDS: ACETYLCYSTEINE 20% SOLN 800 MG/4 ML VIAL NEB SCH ×3 (08:07→23:51)
[2018-04-01] MEDS: LEVETIRACETAM SOL (5 ML) 100 MG/ML UDC GT SCH ×2 (08:27→21:34)
[2018-04-01] MEDS: VIT B CMPLX 3/FA/VIT C/BIOTIN 1 TAB TABLET GT SCH (08:27)
[2018-04-01] MEDS: TRAMADOL HCL 50 MG TABLET PO SCH ×2 (08:28→21:00)
[2018-04-01] MEDS: SEVELAMER CARBONATE 0.8 GM POWD.PACK GT SCH ×3 (08:29→21:34)
[2018-04-01] MEDS: FOLIC ACID 1 MG TABLET GT SCH (08:29)
[2018-04-01] MEDS: LACTOBACILLUS RHAMNOSUS GG 1 EACH CAP.SPRINK GT SCH ×2 (08:29→16:36)
[2018-04-01] MEDS: ZINC SULFATE 220 MG CAPSULE GT SCH (08:29)
[2018-04-01] MEDS: ACETAMINOPHEN 650 MG/20.3 ML UDC GT PRN (08:29)
[2018-04-01] MEDS: PANTOPRAZOLE 40 MG VIAL IV SCH ×2 (08:29→16:36)
[2018-04-01] MEDS: PROSOURCE / PROSTAT (PYXIS) 30 ML UDC GT SCH ×3 (08:30→16:36)
--- NOTE | 2018-04-01 08:30 | NUR ---
ARTIS RN NOTES: COREG HELD DUE TO LOW BP. MD AWARE. WILL GIVE MIDODRINE 10MG ORDERED.
--- NOTE | 2018-04-01 08:30 | NUR ---
ARTIS RN NOTE: SPOKE WITH DR. CALABRESE RE: THE PATIENT'S PLATELET COUNT (48,000) FOR TODAY, BUT IT WAS COMPARED TO THE BLOOD DRAW FROM 03/29/18 IT WAS 43,000. GAVE NO NEW ORDER FOR THE CRITICAL LAB VALUE OF PLATELET. WAS ALSO AWARE THAT THE PATIENT'S BLOOD SUGAR WAS 100 AND HAS A INSULIN GLARGINE 30 UNIT SQ AT 0900. PER MD, HE WILL ADJUST THE DOSE OF THE INSULIN.
[2018-04-01] MEDS: POLYVINYL ALCOHOL 15 ML BOTTLE EACHEYE SCH ×2 (08:42→21:33)
[2018-04-01] MEDS: GABAPENTIN 100 MG CAPSULE GT SCH ×2 (08:49→21:34)
[2018-04-01] MEDS: NYSTATIN CREAM 15 GM TUBE TP SCH ×2 (08:52→16:41)
[2018-04-01] MEDS: HYDROGEL DRESSING 90 GM TUBE TP SCH ×2 (08:52→21:48)
[2018-04-01] MEDS: Z GUARD REMEDY 2 OZ OINT TP SCH (08:53)
[2018-04-01] MEDS: BACITRACIN/POLYMYXIN B 15 GM TUBE TP SCH (08:53)
[2018-04-01] MEDS: CARVEDILOL 12.5 MG TABLET GT SCH ×2 (09:00→21:00)
[2018-04-01] MEDS: MIDODRINE HCL (5MG) 5 MG TABLET GT PRN ×2 (09:13→16:40)
[2018-04-01 12:00] VITALS: BP 90/44
[2018-04-01] MEDS: INSULIN REGULAR, HUMAN 100 UNIT/ML 3 ML VIAL SQ PRN ×2 (12:34→17:45)
[2018-04-01 16:00] VITALS: BP 72/38
--- NOTE | 2018-04-01 16:19 | NUR ---
RT NOTE: PATIENT RECEIVED TRACHED ON MECHANICAL VENT. ALARMS VERIFIED AND AUDIBLE. SUCTIONED AND LAVAGED MODERATE-LARGE AMOUNT OF THICK DEAN SECRETIONS. VENT PLUGGED INTO RED OUTLET. AMBU BAG AT [facility].
--- NOTE | 2018-04-01 19:00 | NUR ---
ARTIS RN END NOTES: PT REMAINS IN BED, AWAKE. TRACH/VENT ORDERED, TOLERATING WELL. O2 SATURATION 100%. GT FEEDING RUNNING AT 45ML/HR PER NEW ORDER, TOLERATING WELL. NO RESIDUAL NOTED. PT KEPT CLEAN AND DRY. ALL NEEDS ATTENDED. WILL ENDORSE TO PM SHIFT NURSE FOR CONTINUITY OF CARE.
[2018-04-01 20:00] VITALS: BP 90/49
--- NOTE | 2018-04-01 20:00 | NUR ---
[facility] RN NOTES RECEIVED PTS IN BED AWAKE ,NON VERBAL REMAINS ON VENTILATOR AC SETTINGS WELL TOLERATED , NO SOB NO DISTRESS NOTED HOD ELEVATED FOR ASPIRATION PRECAUTION ,ON TELE MONITOR AT 100%SATING ON SR ON THE MONITOR, V/S STABLE AFEBRILE , ON GT FEEDING OF NEPHRO AT 45CC/HR TOLERATED WELL NO RESIDUAL NOTED ,TURNED AND REPOSITION ALL NEEDS ATTENDED TOO CALL LIGHT WITHIN REACH KEPT PTS CLEAN DRY AND COMFORTABLE,WILL CONTINUE TO MONITOR PTS.
[2018-04-01] MEDS: PYRIDOXINE HCL 50 MG TABLET GT SCH (21:36)
[2018-04-01] MEDS: INSULIN GLARGINE, 100 UNIT/ML CARTRIDGE SQ SCH (22:15)
--- NOTE | 2018-04-01 23:23 | NUR ---
[facility] RN NOTES DUE MEDS GIVEN ORDERED , COREG AND ULTRAM NOT GIVEN TO BP 90/49 , BLOOD SUGAR OF 238 MG/DL 24 UNITS OF LANTUS GIVEN ORDERED.ALL NEEDS ATTENDED TOO , WILL CONTINUE TO MONITOR PTS.
[2018-04-02] VITALS: BP 83/46
--- NOTE | 2018-04-02 | NUR ---
nelia rn notes blood sugar for 12mn is 239 mg/dl= 4nits of regular insulin givenper sliding scale ,pts on gt feeding.will check bs again at 6 am.
[2018-04-02] MEDS: INSULIN REGULAR, HUMAN 100 UNIT/ML 3 ML VIAL SQ PRN ×3 (00:34→17:16)
[2018-04-02] MEDS: BLOOD SUGAR DIAGNOSTIC 1 EACH STRIP IN SCH ×4 (00:36→17:13)
[2018-04-02] MEDS: MIDODRINE HCL (5MG) 5 MG TABLET GT PRN ×2 (01:28→11:06)
[2018-04-02] MEDS: ACETAMINOPHEN 650 MG/20.3 ML UDC GT PRN ×2 (01:28→21:23)
[2018-04-02 04:00] VITALS: BP 89/43
--- NOTE | 2018-04-02 06:20 | NUR ---
nelia rn notes pts remains on vent setting well tolerated , no sob no distress , had episode of x3 pasty to mucoud consistency bm and x2 diarrhea within the shift will endrse to rn day shift for continuity of care.
[2018-04-02 07:06] LABS: BASOPHILS % (AUTO) 0.3 % (0.0-2.0); EOSINOPHILS % (AUTO) 2.8 % (0.0-6.0); HEMATOCRIT 31 % (39-51); HEMOGLOBIN 10.7 g/dL (13.5-17.5); LYMPHOCYTES # (AUTO) 0.9 /CMM (0.8-4.8); LYMPHOCYTES % (AUTO) 9.7 % (20.0-44.0); MEAN CORPUSCULAR HGB CONC 35 g/dl (31.0-36.0); MEAN CORPUSCULAR VOLUME 111 fL (80-96); MONOCYTES # (AUTO) 0.5 /CMM (0.1-1.30); MONOCYTES % (AUTO) 5.1 % (2.0-12.0); NEUTROPHILS # (AUTO) 7.9 /CMM (1.8-8.9); NEUTROPHILS % (AUTO) 82.1 % (43.0-81.0); PLATELET COUNT (AUTO) 63 /CMM (150-450); RDW COEFFICIENT OF VARIATION 19.5 (11.5-15.0); RED BLOOD CELL COUNT(AUTO) 2.81 MIL/uL (4.5-6.0); WHITE BLOOD COUNT (AUTO) 9.6 K/uL (4.3-11.0)
[2018-04-02 07:31] LABS: ALBUMIN 2.5 g/dL (3.4-5.0); BILIRUBIN,TOTAL 1.1 mg/dL (0.2-1.0); CALCIUM, SERUM 8.4 mg/dL (8.5-10.1); CREATININE 4.3 mg/dL (0.6-1.3); MAGNESIUM 2.5 mg/dL (1.8-2.4); PHOSPHORUS 2.9 mg/dL (2.5-4.9); TOTAL PROTEIN, SERUM 6.7 g/dL (6.4-8.2)
[2018-04-02] MEDS: ACETYLCYSTEINE 20% SOLN 800 MG/4 ML VIAL NEB SCH ×3 (07:38→22:44)
[2018-04-02 08:00] VITALS: BP 108/52
--- NOTE | 2018-04-02 08:00 | NUR ---
TD/RN AM SHIFT INITIAL NOTES RECEIVED PT ASLEEP IN BED, NO GRIMACING OR ACUTE CHANGE OF CONDITION NOTED. PT A/O X 1, REPORTED TO OCCASIONALLY OPEN EYES. VENT DEPENDENT, RATES SET PRESCRIBED, SATURATING @ 100%, LUNG SOUNDS CLEAR, SUCTIONED FOR AIRWAY CLEARANCE, RESPIRATIONS EVEN & UNLABORED. ON TELE WITH SINUS RHYTHM, HR 84. IV SITE SITES FLUSHED, PATENT WITH NO S/S OF INFECTION, SL. RIGHT CHEST DIALYSIS CATHETER INTACT, DRESSING INTACT AND CLEAN, DVT SLEEVE IN PLACED, PUMP ON. PT IS SCHEDULED FOR DIALYSIS TX TODAY. NOTED WITH DISTENDED ABDOMEN NON-TENDER. GTF ON GOING @ 45CC/HR, NO GASTRIC RESIDUAL NOTED, FLUSHED, PATENT. RECTAL TUBE NOTED WITH MUCOID OUTPUT. PT IS COMFORTABLE AT THIS TIME, SCHEDULED AM MEDS TO BE GIVEN. CL WITHIN REACHED AND SAFETY MAINTAINED.
[2018-04-02 08:22] LABS: BAND % (MANUAL) 17 % (0.0-5.0); EOSINOPHILS % (MANUAL) 1 % (0-4); LYMPHOCYTES % (MANUAL) 14 % (16-48); MONOCYTES % (MANUAL) 7 % (0-11.0); NEUTROPHILS % (MANUAL) 61 (42-76)
[2018-04-02] MEDS: NEPRO 1,000 ML BOTTLE GT PRN (08:43)
[2018-04-02] MEDS: PANTOPRAZOLE 40 MG VIAL IV SCH ×2 (08:44→17:10)
[2018-04-02] MEDS: SEVELAMER CARBONATE 0.8 GM POWD.PACK GT SCH ×3 (08:44→21:23)
[2018-04-02] MEDS: PROSOURCE / PROSTAT (PYXIS) 30 ML UDC GT SCH ×3 (08:44→17:10)
[2018-04-02] MEDS: LACTOBACILLUS RHAMNOSUS GG 1 EACH CAP.SPRINK GT SCH ×2 (08:44→17:10)
[2018-04-02] MEDS: LEVETIRACETAM SOL (5 ML) 100 MG/ML UDC GT SCH ×2 (08:44→21:25)
[2018-04-02] MEDS: VIT B CMPLX 3/FA/VIT C/BIOTIN 1 TAB TABLET GT SCH (08:45)
[2018-04-02] MEDS: TRAMADOL HCL 50 MG TABLET PO SCH ×2 (08:45→21:00)
[2018-04-02] MEDS: ZINC SULFATE 220 MG CAPSULE GT SCH (08:45)
[2018-04-02] MEDS: GABAPENTIN 100 MG CAPSULE GT SCH ×2 (08:45→21:24)
[2018-04-02] MEDS: SUCRALFATE 1 G/10 ML UDC GT SCH ×4 (08:45→21:24)
[2018-04-02] MEDS: FOLIC ACID 1 MG TABLET GT SCH (08:45)
[2018-04-02] MEDS: CARVEDILOL 12.5 MG TABLET GT SCH ×2 (08:46→21:00)
[2018-04-02] MEDS: NYSTATIN CREAM 15 GM TUBE TP SCH ×2 (08:47→17:12)
[2018-04-02] MEDS: BACITRACIN/POLYMYXIN B 15 GM TUBE TP SCH (08:47)
[2018-04-02] MEDS: POLYVINYL ALCOHOL 15 ML BOTTLE EACHEYE SCH ×2 (08:47→21:22)
[2018-04-02] MEDS: Z GUARD REMEDY 2 OZ OINT TP SCH (08:48)
[2018-04-02] MEDS: HYDROGEL DRESSING 90 GM TUBE TP SCH ×2 (08:50→21:25)
[2018-04-02] MEDS: INSULIN GLARGINE, 100 UNIT/ML CARTRIDGE SQ SCH ×2 (08:50→21:58)
[2018-04-02] MEDS: ALBUMIN 25% 25 GM in PREMIX 1 EA IV PRN (11:34)
[2018-04-02 12:00] VITALS: BP 105/53
--- NOTE | 2018-04-02 12:45 | NUR ---
TELE1/PROJECT OFFICER - COMPLETED DIALYSIS TREATMENT COMPLETED, NO FLUID REMOVED, PT TOLERATED PROCEDURE.
[2018-04-02 16:00] VITALS: BP 114/57
[2018-04-02] MEDS: VANCOMYCIN 500 MG in IV NS 0.9% 100 ML IV PRN (17:22)
--- NOTE | 2018-04-02 19:15 | NUR ---
TELE1/RN AM SHIFT END NOTES ALL NEEDS MET, NO FEVER NOTED DURING THE SHIFT. ON GOING GT FEEDING. IV SITE ON TKO. RECTAL TUBE INTACT. PT ENDORSED TO PM NURSE TO CONTINUE CARE. CL WITHIN REACHED AND SAFETY MAINTAINED.
--- NOTE | 2018-04-02 21:00 | NUR ---
HEALTH AND SAFETY INSPECTOR - REC'D PT. VENT/TRACH/PEGGED/NONVERBAL, BUT UNDERSTANDS FRENCH LANG. PT. WAS HYPERTHERMIC UPON SOS. 102.8 (PO), HYPOTENSIVE = 84/41 & REPEATED AN HOUR LATER - 85/40. HR/ST/107. O2 SATS WNL. PT. REC'D AN IMMEDIATE ICE BATH & COOLING BLANKET PLACED ATOP OF HIM. TYLENOL 650MG/PEG ADM. NEPRO INFUSING AT 45CC/HR W/NO RESIDUALS NOTED. CONT.POC.
[2018-04-02] MEDS: PYRIDOXINE HCL 50 MG TABLET GT SCH (21:38)
--- NOTE | 2018-04-02 22:50 | NUR ---
OUTSIDE PLANT SUPERVISOR - DR. ANDERSON PHONED & WAS GIVEN STATUS UPDATE. ORDERS REC'D. PT. WILL BE TX'D TO ICU. VERBAL REPORT ENDORSED TO [facility] ICU-RN. CONT. POC.
[2018-04-02] MEDS ORDERED: IV NS 0.9% 500 ML IV ONE (23:00)
--- NOTE | 2018-04-02 23:15 | NUR ---
telemetry monitor notes pts daughter mohinder made aware of pts current condition and transfer pts to icu room 254.
[2018-04-02] MEDS ORDERED: NOREPINEPHRINE 4 MG/4 ML AMPUL IV ONE (23:45)
[2018-04-02] MEDS: NOREPINEPHRINE 16 MG in IV D5W 500 ML IV PRN (23:49)
[2018-04-03] VITALS (82 sets, daily range): BP systolic 75–133; BP diastolic 30–66
[2018-04-03] MEDS: INSULIN REGULAR, HUMAN 100 UNIT/ML 3 ML VIAL SQ PRN ×4 (00:04→18:28)
[2018-04-03] MEDS: BLOOD SUGAR DIAGNOSTIC 1 EACH STRIP IN SCH ×4 (00:05→18:20)
--- NOTE | 2018-04-03 00:06 | NUR ---
MANAGER OB. TRANSFER THE PT FROM [facility] TO ICU ROOM 254, FOR HYPOTENSION.. BLOOD PRESSURE WAS 77/36. PT RESPONDING PAIN FUL STIMULI . IV RT AC 20G. SALINE LOCK. FLEXA SEAL INTACT. WILL CONTINUE TO MONITOR VITALS.
--- NOTE | 2018-04-03 00:10 | NUR ---
BENZENE STILL UTILITY OPERATOR. DR ABRAMS ORDERED NS 500ML BOLUS. WAS GIVEN , STILL BP LOW 72/50, PAGED DR ABRAMS. NEW ORDER RECEIVED, LEVO STARTED, WILL CONTINUE TO MONITOR.
--- NOTE | 2018-04-03 03:11 | NUR ---
COLLECTOR OF AQUARIUM SPECIMENS. AM CARE, ORAL CARE, BED BATH GIVEN. LINEN CHANGED, REMAINING SAME VENT SETTING TOLERATED WELL. SAT 98%. NO ACUTE DISTRESS NOTED. NUTRITIONAL SERVICES HOST SHOWING S TACH. RATE IS 102. HOB ELEVATED. GT FEEDING TOLERATED WELL. FLEXA SEAL INTACT. HOB ELEVATED. TURN AND REPOSITION Q2H. WILL CONTINUE TO MONITOR VITALS.
[2018-04-03 04:28] LABS: BASOPHILS % (AUTO) 0.1 % (0.0-2.0); EOSINOPHILS % (AUTO) 0.4 % (0.0-6.0); HEMATOCRIT 27 % (39-51); HEMOGLOBIN 9.4 g/dL (13.5-17.5); LYMPHOCYTES # (AUTO) 0.3 /CMM (0.8-4.8); LYMPHOCYTES % (AUTO) 3.9 % (20.0-44.0); MEAN CORPUSCULAR HGB CONC 35 g/dl (31.0-36.0); MEAN CORPUSCULAR VOLUME 110 fL (80-96); MONOCYTES # (AUTO) 0.3 /CMM (0.1-1.30); MONOCYTES % (AUTO) 3.8 % (2.0-12.0); NEUTROPHILS # (AUTO) 7.2 /CMM (1.8-8.9); NEUTROPHILS % (AUTO) 91.8 % (43.0-81.0); RDW COEFFICIENT OF VARIATION 19.8 (11.5-15.0); RED BLOOD CELL COUNT(AUTO) 2.47 MIL/uL (4.5-6.0); WHITE BLOOD COUNT (AUTO) 7.8 K/uL (4.3-11.0)
[2018-04-03 04:42] LABS: ALBUMIN 2.6 g/dL (3.4-5.0); BILIRUBIN,TOTAL 1.3 mg/dL (0.2-1.0); CALCIUM, SERUM 8.5 mg/dL (8.5-10.1); CREATININE 3.7 mg/dL (0.6-1.3); MAGNESIUM 2.3 mg/dL (1.8-2.4); TOTAL PROTEIN, SERUM 6.5 g/dL (6.4-8.2)
[2018-04-03 04:46] LABS: POTASSIUM 2.8 mmol/L (3.5-5.1)
[2018-04-03 04:47] LABS: PLATELET COUNT (AUTO) 48 /CMM (150-450)
[2018-04-03 05:34] LABS: BAND % (MANUAL) 23 % (0.0-5.0); LYMPHOCYTES % (MANUAL) 5 % (16-48); MONOCYTES % (MANUAL) 5 % (0-11.0); NEUTROPHILS % (MANUAL) 67 (42-76)
--- NOTE | 2018-04-03 07:15 | NUR ---
MANAGER FIRE NOTES RECEIVED PATIENT OPENS EYES , DOESN'T FOLLOW COMMANDS , TRACTS , NOT IN ACUTE DISTRESS , RESPIRATIONS EVEN AND UNLABORED , TRACH OF PORTEX # [address] , TOLERATING CURRENT VENT SETTINGS WITH SPO2 OF 100% , SR 95 ON BEDSIDE MONITOR , GT PATENT AND INTACT WITH NEPHRO @ 40ML/HR TOLERATING WELL WITH NO RESIDUALS NOTED , FLEXISEAL DRAINING VIA GRAVITY WITH BROWN LIQUID STOOL , IV OF R HAND # 18 PATENT AND INTACT WITH LEVOPHED @ 2MCG/.MIN , NS @ TKO , R AC # 20 PATENT AND INTACT , R IJ PERMACATH C/D/I , HOB @ 35 , WILL CONTINUE TO MONITOR ,
[2018-04-03] MEDS: SUCRALFATE 1 G/10 ML UDC GT SCH ×4 (07:32→21:16)
[2018-04-03] MEDS: ACETYLCYSTEINE 20% SOLN 800 MG/4 ML VIAL NEB SCH ×3 (07:35→23:25)
--- NOTE | 2018-04-03 08:00 | NUR ---
BULL GANG SUPERVISOR NOTES PATIENT IS MORE AWAKE , ABLE TO FOLLOW COMMANDS IN DIVEHI , NODS ,
[2018-04-03] MEDS: VIT B CMPLX 3/FA/VIT C/BIOTIN 1 TAB TABLET GT SCH (08:19)
[2018-04-03] MEDS: PROSOURCE / PROSTAT (PYXIS) 30 ML UDC GT SCH ×3 (08:19→16:22)
[2018-04-03] MEDS: FOLIC ACID 1 MG TABLET GT SCH (08:20)
[2018-04-03] MEDS: ZINC SULFATE 220 MG CAPSULE GT SCH (08:20)
[2018-04-03] MEDS: GABAPENTIN 100 MG CAPSULE GT SCH ×2 (08:20→20:56)
[2018-04-03] MEDS: PANTOPRAZOLE 40 MG VIAL IV SCH ×2 (08:20→16:21)
[2018-04-03] MEDS: TRAMADOL HCL 50 MG TABLET PO SCH ×2 (08:20→20:57)
[2018-04-03] MEDS: LACTOBACILLUS RHAMNOSUS GG 1 EACH CAP.SPRINK GT SCH ×2 (08:20→16:21)
[2018-04-03] MEDS: LEVETIRACETAM SOL (5 ML) 100 MG/ML UDC GT SCH ×2 (08:20→20:55)
--- NOTE | 2018-04-03 08:20 | NUR ---
PROFESSIONAL GOLF TOURNAMENT PLAYER NOTES PATIENT STABLE PRIOR TO HD , LABS DISCUSSED WITH HD RN , BP OF 95/50 , LEVOPHED RE STARTED @ 2MCG/MIN , WILL CONTINUE TO MONITOR
[2018-04-03] MEDS: SEVELAMER CARBONATE 0.8 GM POWD.PACK GT SCH ×4 (08:21→20:56)
[2018-04-03] MEDS: POLYVINYL ALCOHOL 15 ML BOTTLE EACHEYE SCH ×2 (08:21→20:54)
[2018-04-03] MEDS: Z GUARD REMEDY 2 OZ OINT TP SCH (08:21)
[2018-04-03] MEDS: CARVEDILOL 12.5 MG TABLET GT SCH ×3 (08:21→20:55)
[2018-04-03] MEDS: HYDROGEL DRESSING 90 GM TUBE TP SCH ×2 (08:22→20:57)
[2018-04-03] MEDS: NYSTATIN CREAM 15 GM TUBE TP SCH ×2 (08:23→16:21)
[2018-04-03] MEDS: BACITRACIN/POLYMYXIN B 15 GM TUBE TP SCH (08:24)
[2018-04-03] MEDS: INSULIN GLARGINE, 100 UNIT/ML CARTRIDGE SQ SCH ×2 (08:29→21:28)
--- NOTE | 2018-04-03 08:40 | NUR ---
WELDING TESTER NOTES SPOKE DR ANDERSON , DISCUSSED CURRENT LABS , PT WITH ONGOING HD AT THIS TIME , VERIFIED IF HE WANTS TO REPLACE K OF 2.8 , PHOS OF 2.0 , MD AWARE , NOTIFIED THAT RENVELA HELD DUE TO LOW PHOSPHORUS , CURRENTLY ON LEVOPHED @ 2MCG/MIN AWARE ,
--- NOTE | 2018-04-03 09:19 | NUR ---
COOK TORTILLA NOTES SPOKE WITH DR ANDERSON , VERIFIED IF HE WANTS TO REPLACE K OF 2.8 AND PHOS OF 2.0 , AWARE , NO NEW ORDERS RECEIVED
--- NOTE | 2018-04-03 10:11 | NUR ---
METAL CASTING TRADES WORKER NOTES PATIENT STABLE S/P HD , TOLERATED WELL , NO OUTPUT NOTED , BP OF 107 / 53 ON LEVOPHED @ 2MCG/MIN , CALLED PHARMACY , NOTIFIED PATIENT HAS A VANCOMYCIN DOSE S/P HD WITH NO THROUGH FOR TODAY , LAST VANCOMYCIN THROUGH WAS 18 YESTERDAY , PER [facility] ORDER VANCOMYCIN THROUGH FOR TODAY ,
--- NOTE | 2018-04-03 10:49 | NUR ---
HELMET COVERER NOTES VANCOMYCIN POST HD NON ADMIN , VANCO THROUGH .
[2018-04-03] MEDS ORDERED: NEUTRA PHOS 1 POWD.PACKET NG ONE (11:30)
[2018-04-03] MEDS: MIDODRINE HCL (5MG) 5 MG TABLET GT PRN (12:02)
--- NOTE | 2018-04-03 12:38 | NUR ---
GRAIN LOADER NOTES SEEN AND EVALUATED BY FAHEEM DECKER , DISCUSSED LABS , GT SITE NOTED WITH MINIMAL LEAK , TOLERATING GT FEEDING , PT ON FLEXISEAL NOTED WITH ACTIVE DIARRHEA LIQUID BROWN IN CONSISTENCY , PER CELL ATTENDANT ORDER STAT KUB WITH GASTROGRAFIN TO CHECK PEG PLACEMENT AND STOOL FOR C DIFF , ORDERS CARRIED OUT
--- NOTE | 2018-04-03 15:37 | NUR ---
TANK PUMPER PANELBOARD NOTES PAGED DR COLES'S OFFICE TO NOTIFY TEMP OF 102.5F VIA ORAL , COOLING MEASURES PROVIDED ,WILL ADMINISTER TYLENOL PRN WILL CONTINUE TO MONITOR
[2018-04-03] MEDS: ACETAMINOPHEN 650 MG/20.3 ML UDC GT PRN (15:42)
[2018-04-03] MEDS: NOREPINEPHRINE 16 MG in IV D5W 500 ML IV PRN (15:58)
[2018-04-03] MEDS: NEPRO 1,000 ML BOTTLE GT PRN (16:33)
--- NOTE | 2018-04-03 18:21 | NUR ---
FOLLOW UP REP NOTES RECEIVED ORDERED UNDER NERA SYSTEM ADMINISTRATOR TO START PATIENT ON MERREM 500MG Q 12 , ORDERS CARRIED OUT Addendum: 04/03/18 at 1859 by ROSALEE THACKER RN NOTIFIED NERA THAT PT IS ON FLEXISEAL WITH ACTIVE DIARRHEA , LIQUID BROWN STOOL NOTED , STOOL FOR C DIFF SENT ,
--- NOTE | 2018-04-03 19:03 | NUR ---
BUTCHER MEAT NOTES RECEIVED TO ORDER TO START PT ON FLAGY 500MG Q8 IV , ORDER CARRIED OUT
[2018-04-03] MEDS ORDERED: METRONIDAZOLE 500MG/ NS 100ML 500 MG in PREMIX 1 EA IV SCH (19:30)
--- NOTE | 2018-04-03 20:18 | NUR ---
RECEIVED PT TRACH PTX 8 ON [facility] VENT. PT TOLERATING VENT SETTINGS. SX'D FOR SML AMT OF THIN WHITE SECRETIONS. VENT ALARMS SET AND AUDIBLE. AMBU BAG AT BEDSIDE. TRACH SECURED. VENT PLUGGED INTO RED OUTLET. WILL CONTINUE TO MONITOR. Addendum: 04/03/18 at 2020 by ISAAC HARRINGTON RT Amended: Links added.
[2018-04-03] MEDS: MEROPENEM 500 MG in IV NS 0.9% 50 ML IV SCH (20:53)
[2018-04-03] MEDS: METRONIDAZOLE 250 MG TABLET PO SCH (20:56)
--- NOTE | 2018-04-03 21:00 | NUR ---
MAILING SECTION CLERK - PT. WAS REC'D TRACH/VENTED/PEGGED. PT. UNDERSTANDS SYRIAC & HAS EYES OPEN. NON - VERBAL. PT. CAN TRACK W/EYES. HEART MONITOR SHOWS SR/ST. SBP'S ARE IMPROVING. PT.IS STILL ON LEVOPHED GTT. AT 4 MCG/MIN. PT. WAS TITRATED DOWN TO 3 MCG/MIN. AT 20:00 PM. PT.HAS 2 PIV'S THAT HAVE ALL PORTS PATENT TO FLUSH. 0.9%NS INFUSING AT TKO. ALL PULSES PALPABLE X 4 EXT. PT.HAS MULTIPLE WOUNDS/SKIN ISSUES. PT.IS DIALYSIS PT. & IS ANURIC. FLEXISEAL BAG TO GRAVITY. PT. IS IN ISOLATION FOR POSSIBLE C-DIFF. TEMPS IN THE 99"S. + CELLULITIS AROUND PEG INSERTION SITE. TRACH IS A PORTEX #8 W/VENT SETTINGS OF AC-14, TV-500, 40% & PEEP OF 5. CONT.POC.
[2018-04-03] MEDS: PYRIDOXINE HCL 50 MG TABLET GT SCH (21:16)
[2018-04-04] VITALS (70 sets, daily range): BP systolic 73–126; BP diastolic 31–63
--- NOTE | 2018-04-04 | NUR ---
SERGEANT OF OFFICERS - PT'S LEVOPHED GTT. WAS TITRATED DOWN TO 2 MCG/MIN. SBP'S ARE >115. PT'S BS WAS #304 AT PRESENT. PT. REC'D 24 UNITS OF LANTUS & NOW REC'D 8 UNITS OF REG.INSULIN FOR S/S COVERAGE. CONT. TO MONITOR CLOSELY.
[2018-04-04] MEDS: INSULIN REGULAR, HUMAN 100 UNIT/ML 3 ML VIAL SQ PRN ×6 (01:21→23:34)
[2018-04-04 04:45] LABS: BASOPHILS % (AUTO) 0.1 % (0.0-2.0); EOSINOPHILS % (AUTO) 0.4 % (0.0-6.0); HEMATOCRIT 22 % (39-51); HEMOGLOBIN 7.6 g/dL (13.5-17.5); LYMPHOCYTES # (AUTO) 0.2 /CMM (0.8-4.8); LYMPHOCYTES % (AUTO) 9.5 % (20.0-44.0); MEAN CORPUSCULAR HGB CONC 35 g/dl (31.0-36.0); MEAN CORPUSCULAR VOLUME 108 fL (80-96); MONOCYTES # (AUTO) 0.2 /CMM (0.1-1.30); MONOCYTES % (AUTO) 8.3 % (2.0-12.0); NEUTROPHILS # (AUTO) 2.1 /CMM (1.8-8.9); NEUTROPHILS % (AUTO) 81.7 % (43.0-81.0); RDW COEFFICIENT OF VARIATION 18.7 (11.5-15.0); RED BLOOD CELL COUNT(AUTO) 2.01 MIL/uL (4.5-6.0); WHITE BLOOD COUNT (AUTO) 2.6 K/uL (4.3-11.0)
[2018-04-04] MEDS: METRONIDAZOLE 250 MG TABLET PO SCH ×3 (04:52→21:26)
[2018-04-04 04:55] LABS: PLATELET COUNT (AUTO) 35 /CMM (150-450)
[2018-04-04] MEDS: BLOOD SUGAR DIAGNOSTIC 1 EACH STRIP IN SCH ×5 (05:00→23:34)
[2018-04-04 05:11] LABS: CALCIUM, SERUM 8.3 mg/dL (8.5-10.1); CREATININE 3.4 mg/dL (0.6-1.3); MAGNESIUM 2.3 mg/dL (1.8-2.4); PHOSPHORUS 1.9 mg/dL (2.5-4.9)
[2018-04-04 05:25] LABS: POTASSIUM 2.5 mmol/L (3.5-5.1)
[2018-04-04 05:26] LABS: BAND % (MANUAL) 14 % (0.0-5.0); EOSINOPHILS % (MANUAL) 1 % (0-4); LYMPHOCYTES % (MANUAL) 11 % (16-48); MONOCYTES % (MANUAL) 6 % (0-11.0); NEUTROPHILS % (MANUAL) 68 (42-76)
--- NOTE | 2018-04-04 07:15 | NUR ---
FASHION DESIGNER RECEIVED PATIENT AWAKE ON MECHANICAL VENTILATORY SUPPORT SATURATION AT 100 % AFEBRILE OPENS EYES SUCTIONED YELLOWISH TENACIOUS SECRETION ON THE TRACH SEROSANGUIONS DRAIN AROUND THE GT AREA, DRESSING CHANGED DONE ON NEPHRO AT 45, NO RESIDUAL SEEN ON FLEXISEAL DRAINING TO BROWNISH LOOSE STOOL LARGE IN AMOUNT Addendum: 04/04/18 at 1023 by LEILANI RUDOLPH RN INFORMED DR. JAIME REGARDING LAB RESULTS, HE CAME TO9 SEE PATIENT IN 15 MINS AFTER HE WAS CALLED PATIENT IS FOR DIALYSIS PER
[2018-04-04] MEDS: ACETYLCYSTEINE 20% SOLN 800 MG/4 ML VIAL NEB SCH ×3 (07:48→23:19)
[2018-04-04] MEDS: MEROPENEM 500 MG in IV NS 0.9% 50 ML IV SCH ×2 (07:50→20:00)
[2018-04-04] MEDS: SUCRALFATE 1 G/10 ML UDC GT SCH ×4 (07:50→21:42)
--- NOTE | 2018-04-04 07:50 | NUR ---
RT PATIENT REC'D TRACHED ON [facility] VENT WITH SETTINGS SET BY . VENT ALARMS CHECKED + AUDIBLE. CUFF PRESSURE CHECKED GARNETT MACHINE OPERATOR. PATIENT SUCTIONED WITH SMALL/MOD AMT PALE SEMI-THICK SECRETIONS. B/S DIM. BACK UP TRACH AND AMBU BAG AT [facility]. Addendum: 04/04/18 at 1531 by NICKOLAS NORRIS RT Amended: Links added.
[2018-04-04] MEDS: SEVELAMER CARBONATE 0.8 GM POWD.PACK GT SCH ×3 (08:20→16:59)
[2018-04-04] MEDS: PANTOPRAZOLE 40 MG VIAL IV SCH ×2 (08:20→16:38)
[2018-04-04] MEDS: VIT B CMPLX 3/FA/VIT C/BIOTIN 1 TAB TABLET GT SCH (08:21)
[2018-04-04] MEDS: LEVETIRACETAM SOL (5 ML) 100 MG/ML UDC GT SCH ×2 (08:21→21:24)
[2018-04-04] MEDS: LACTOBACILLUS RHAMNOSUS GG 1 EACH CAP.SPRINK GT SCH ×2 (08:21→16:38)
[2018-04-04] MEDS: CARVEDILOL 12.5 MG TABLET GT SCH ×2 (08:21→21:34)
[2018-04-04] MEDS: FOLIC ACID 1 MG TABLET GT SCH (08:22)
[2018-04-04] MEDS: GABAPENTIN 100 MG CAPSULE GT SCH ×2 (08:22→21:24)
[2018-04-04] MEDS: TRAMADOL HCL 50 MG TABLET PO SCH ×2 (08:22→21:26)
[2018-04-04] MEDS: HYDROGEL DRESSING 90 GM TUBE TP SCH ×2 (08:23→21:20)
[2018-04-04] MEDS: NYSTATIN CREAM 15 GM TUBE TP SCH ×2 (08:24→16:58)
[2018-04-04] MEDS: Z GUARD REMEDY 2 OZ OINT TP SCH (08:24)
[2018-04-04] MEDS: POLYVINYL ALCOHOL 15 ML BOTTLE EACHEYE SCH ×2 (08:25→21:24)
[2018-04-04] MEDS: BACITRACIN/POLYMYXIN B 15 GM TUBE TP SCH (08:26)
[2018-04-04] MEDS: ZINC SULFATE 220 MG CAPSULE GT SCH (09:07)
[2018-04-04] MEDS: PROSOURCE / PROSTAT (PYXIS) 30 ML UDC GT SCH ×3 (09:07→16:38)
[2018-04-04] MEDS: INSULIN GLARGINE, 100 UNIT/ML CARTRIDGE SQ SCH ×2 (09:08→21:58)
[2018-04-04] MEDS ORDERED: NEUTRA PHOS 1 POWD.PACKET NG ONE (11:30)
--- NOTE | 2018-04-04 11:33 | NUR ---
SPECIAL FORCES SPECIALIST REPORT GIVEN TO DEA RN MONITORED CLOSELY TILL ENDORSED TO ASSIGNED RN NO OTHER UNTOWARD SYMPTOM SEEN
[2018-04-04] MEDS: ACETAMINOPHEN 650 MG/20.3 ML UDC GT PRN (16:38)
[2018-04-04] MEDS ORDERED: GLUCERNA 1.2 1,000 ML BOTTLE NG PRN (18:30)
--- NOTE | 2018-04-04 20:02 | NUR ---
RECEIVED PT TRACH PTX 8 ON [facility] VENT. PT TOLERATING VENT SETTINGS. SX'D FOR SML AMT OF THIN WHITE SECRETIONS. VENT ALARMS SET AND AUDIBLE. AMBU BAG AT BEDSIDE. TRACH SECURED. VENT PLUGGED INTO RED OUTLET. WILL CONTINUE TO MONITOR. Addendum: 04/04/18 at 2001 by ISAAC HARRINGTON RT Amended: Links added.
[2018-04-04] MEDS ORDERED: MEROPENEM 500 MG VIAL IV ONE (21:14)
[2018-04-04] MEDS: PYRIDOXINE HCL 50 MG TABLET GT SCH (21:28)
[2018-04-05] VITALS (102 sets, daily range): BP systolic 71–123; BP diastolic 42–75
[2018-04-05] MEDS ORDERED: AMIKACIN IV ONE (00:30)
[2018-04-05] MEDS ORDERED: NS 0.9% IV ONE (00:30)
[2018-04-05] MEDS ORDERED: AMIKACIN 250 MG/ML VIAL ONE (01:39)
[2018-04-05 04:23] LABS: BASOPHILS % (AUTO) 0.4 % (0.0-2.0); EOSINOPHILS % (AUTO) 2.5 % (0.0-6.0); HEMATOCRIT 23 % (39-51); HEMOGLOBIN 7.8 g/dL (13.5-17.5); LYMPHOCYTES # (AUTO) 0.4 /CMM (0.8-4.8); MEAN CORPUSCULAR HGB CONC 34 g/dl (31.0-36.0); MEAN CORPUSCULAR VOLUME 108 fL (80-96); MONOCYTES # (AUTO) 0.3 /CMM (0.1-1.30); MONOCYTES % (AUTO) 12.6 % (2.0-12.0); NEUTROPHILS # (AUTO) 1.3 /CMM (1.8-8.9); NEUTROPHILS % (AUTO) 65.5 % (43.0-81.0); RDW COEFFICIENT OF VARIATION 18.9 (11.5-15.0); RED BLOOD CELL COUNT(AUTO) 2.09 MIL/uL (4.5-6.0)
[2018-04-05 04:28] LABS: PLATELET COUNT (AUTO) 32 /CMM (150-450)
[2018-04-05 04:43] LABS: CALCIUM, SERUM 8.2 mg/dL (8.5-10.1); MAGNESIUM 2.4 mg/dL (1.8-2.4); PHOSPHORUS 2.1 mg/dL (2.5-4.9); POTASSIUM 2.9 mmol/L (3.5-5.1)
[2018-04-05 05:00] LABS: EOSINOPHILS % (MANUAL) 2 % (0-4); LYMPHOCYTES % (MANUAL) 22 % (16-48); MONOCYTES % (MANUAL) 10 % (0-11.0); NEUTROPHILS % (MANUAL) 66 (42-76)
[2018-04-05] MEDS: INSULIN REGULAR, HUMAN 100 UNIT/ML 3 ML VIAL SQ PRN ×4 (06:27→23:57)
[2018-04-05] MEDS: BLOOD SUGAR DIAGNOSTIC 1 EACH STRIP IN SCH ×4 (06:29→23:56)
[2018-04-05] MEDS: METRONIDAZOLE 250 MG TABLET PO SCH ×3 (06:30→20:17)
--- NOTE | 2018-04-05 06:50 | NUR ---
RINK RAT - NO CHANGES FROM INITIAL ASSESSMENT. PT. WAS GIVEN COMP. BEDBATH AT 5AM & A PARTIAL BEDBATH EARLIER DUE TO FLEXISEAL LEAKAGE. FLEXISEAL BALLOON CHECKED Q 4 HRS-NOTED. GLUCERNA IS AT GOAL OF 60CC/HR. LEVOPHED WAS TITRATED DOWN TO 2 MCG/MIN BY 5AM & THEN PT'S SBP'S TANKED. SBP'S STAYED IN THE 80'S UNTIL RN INCREASED GTT. - NOW UP TO 5 MCG/MIN. LAB PHONED W/PLT. RESULT OF #32. DOCUMENTED. SKIN/WOUND PICTURES WERE TAKEN DURING BEDBATH & PLACED IN CHART. WOUND CARE ADM. RTC. BS AT MN = #318 & BY 6AM=#[phone]. COVERED. CONT.POC.
--- NOTE | 2018-04-05 07:05 | NUR ---
RN INITIAL NOTES RECEIVED PT AWAKE, A/OX1. ON VENT. TRACH IN PLACE. NO RESPIRATORY DISTRESS NOTED. NO SOB NOTED. NO SIGNS OF PAIN NOTED. HOB ELEVATED. IV LINES IN PLACE. RIGHT SUBCLAVIAN HD CATH IN PLACE. PT ON LEVO AT 5MCG/MIN. GT IN PLACE. TOLERATING GTF WELL. LEAKING AROUND GT SITE NOTED. WILL KEEP CLEAN AND DRY. FLEXISEAL IN PLACE. BLE ELEVATED. PT REPOSITIONED. WILL MONITOR.
[2018-04-05] MEDS: ACETYLCYSTEINE 20% SOLN 800 MG/4 ML VIAL NEB SCH ×2 (07:29→15:27)
--- NOTE | 2018-04-05 07:30 | NUR ---
RT PATIENT REC'D TRACHED ON [facility] VENT WITH SETTINGS SET BY . VENT ALARMS CHECKED + AUDIBLE. CUFF PRESSURE CHECKED SENIOR FINANCIAL CONSULTANT. PATIENT SUCTIONED WITH SMALL/MOD AMT PALE SEMI-THICK SECRETIONS. B/S DIM. BACK UP TRACH AND AMBU BAG AT [facility]. Addendum: 04/05/18 at 0848 by NICKOLAS NORRIS RT Amended: Links added.
[2018-04-05] MEDS ORDERED: FEE PK DOSING 1 MIN EA MC ONE (07:47)
[2018-04-05] MEDS ORDERED: AMIKACIN 500 MG in IV NS 0.9% 100 ML IV PRN (08:00)
[2018-04-05] MEDS: SUCRALFATE 1 G/10 ML UDC GT SCH ×4 (08:15→21:16)
[2018-04-05] MEDS: PROSOURCE / PROSTAT (PYXIS) 30 ML UDC GT SCH ×3 (08:15→16:25)
[2018-04-05] MEDS: PANTOPRAZOLE 40 MG VIAL IV SCH ×2 (08:15→16:25)
[2018-04-05] MEDS: LEVETIRACETAM SOL (5 ML) 100 MG/ML UDC GT SCH ×2 (08:15→20:17)
[2018-04-05] MEDS: SEVELAMER CARBONATE 0.8 GM POWD.PACK GT SCH ×3 (08:17→20:17)
[2018-04-05] MEDS: ZINC SULFATE 220 MG CAPSULE GT SCH (08:19)
[2018-04-05] MEDS: TRAMADOL HCL 50 MG TABLET PO SCH ×2 (08:19→20:17)
[2018-04-05] MEDS: FOLIC ACID 1 MG TABLET GT SCH (08:19)
[2018-04-05] MEDS: GABAPENTIN 100 MG CAPSULE GT SCH ×2 (08:19→20:17)
[2018-04-05] MEDS: LACTOBACILLUS RHAMNOSUS GG 1 EACH CAP.SPRINK GT SCH ×2 (08:19→16:25)
[2018-04-05] MEDS: VIT B CMPLX 3/FA/VIT C/BIOTIN 1 TAB TABLET GT SCH (08:19)
[2018-04-05] MEDS: HYDROGEL DRESSING 90 GM TUBE TP SCH ×2 (08:20→20:18)
[2018-04-05] MEDS: BACITRACIN/POLYMYXIN B 15 GM TUBE TP SCH (08:27)
[2018-04-05] MEDS: POLYVINYL ALCOHOL 15 ML BOTTLE EACHEYE SCH ×2 (08:27→20:18)
[2018-04-05] MEDS: Z GUARD REMEDY 2 OZ OINT TP SCH (08:27)
[2018-04-05] MEDS: NYSTATIN CREAM 15 GM TUBE TP SCH ×2 (08:28→16:30)
[2018-04-05] MEDS: CARVEDILOL 12.5 MG TABLET GT SCH ×3 (08:52→20:16)
[2018-04-05] MEDS ORDERED: DOSING PER PHARMACY-AMIKACI IV XX PRN (09:00)
--- NOTE | 2018-04-05 10:00 | NUR ---
RN NOTES 0815 HD STARTED. VS STABLE. ON LEVO AT 5MCG/MIN. NO RESPIRATORY DISTRESS NOTED. NO SOB NOTED. NO SIGNS OF PAIN. WILL MONITOR. 1000 HD DONE. REMOVED 1L OUT. REMAINS ON LEVO AT 5MCG/MIN. NO RESPIRATORY DISTRESS NOTED. NO SOB NOTED. WILL MONITOR.
[2018-04-05] MEDS: INSULIN GLARGINE, 100 UNIT/ML CARTRIDGE SQ SCH ×2 (10:10→20:25)
[2018-04-05] MEDS: VANCOMYCIN 500 MG in IV NS 0.9% 100 ML IV PRN (10:40)
--- NOTE | 2018-04-05 10:40 | NUR ---
RN NOTES VANCO GIVEN POST HD ORDERED. WILL HOLD AMIKACIN PER (ABDON PHARMACIST). LAST DOSE GIVEN AT 0200 TODAY.
--- NOTE | 2018-04-05 10:45 | NUR ---
RN NOTES SEEN AND EXAMINED BY DR. CALABRESE. AWARE OF LAB VALUES: WBC 2, HGB 7.8, HCT 23, PLATELET 32. NO SIGNS OF ACTIVE BLEEDING NOTED. SODIUM 142, POTASSIUM 2.9, BUN 73, CREA 4. HD DONE, 1L OUT. PT REMAINS ON LEVO, TITRATED ACCORDINGLY. WILL CONTINUE TO MONITOR.
[2018-04-05] MEDS: NOREPINEPHRINE 16 MG in IV D5W 500 ML IV PRN (10:56)
--- NOTE | 2018-04-05 11:00 | NUR ---
RN NOTES SEEN AND EXAMINED BY DR. DOWNING. PT AWAKE, A/O. ON VENT. TRACH IN PLACE. NO RESPIRATORY DISTRESS NOTED. NO SOB NOTED. HOB ELEVATED. ON LEVO, WILL TITRATE ACCORDINGLY. WILL CONTINUE TO MONITOR.
[2018-04-05] MEDS: ACETAMINOPHEN 650 MG/20.3 ML UDC GT PRN (12:23)
[2018-04-05] MEDS ORDERED: NEUTRA PHOS 1 POWD.PACKET GT ONE (14:30)
[2018-04-05] MEDS: GLUCERNA 1.2 1,000 ML BOTTLE NG PRN (14:38)
--- NOTE | 2018-04-05 16:00 | NUR ---
RN NOTES PT'S TEMP 101.8. COOLING MEASURES ON. PT ON IV ATB. NO ASE NOTED. JERONIMO OLIVER NOTIFIED. PER MELODY, SHE WILL SEE PT SOON.
--- NOTE | 2018-04-05 19:30 | NUR ---
DRAWER IN PLAIN LOOM INITIAL NOTES RECEIVED PATIENT IN BED, ASLEEP AT THIS TIME, EYES CLOSED. PATIENT AROUSABLE TO VERBAL AND TACTILE STIMULI, 2 FAMILY MEMBERS AT BEDSIDE. PATIENT IS A/0 X1, NONVERBAL, BUT ABLE TO NOD YES/NO AND FOLLOW SIMPLE COMMANDS. TRACH IS MIDLINE AND INTACT, ON MECHANICAL VENTILATOR AT PRESCRIBED SETTINGS, TOLERATING WELL, FREE FROM ANY S/S OF RESPIRATORY DISTRESS. GTUBE PATENT AND INTACT, NOTED TO BE LEAKING, INCREASED LEAKING DEPENDING ON POSITION, WILL CHANGE DRESSINGS. GASTRIC RESIDUAL = 100ML AT THIS TIME OF STRAW COLORED OUTPUT. WILL ADMINISTER REGLAN ORDERED. RIGHT AC AND RIGHT FOREARM IVs PATEBNT AND INTACT, FLUSHED WITH NS, FREE FROM ANY S/S OF INFILTRATION OR PHLEBITIS. LEVOPHED CURRENTLY INFUSING @ 5MCG, WILL MONITOR AND TITRATE ACCORDINGLY. AWAITING PICC LINE PLACEMENT. FLEXISEAL PATENT AND INTACT, NOTED WITH LIQUID BROWN STOOL TO DRAINAGE BAG. PLAN OF CARE DISCUSSED WITH THE PATIENT AND FAMILY MEMBERS AT BEDSIDE, ALL VERBALIZING UNDERSTANDING REGARDING THE PLAN OF CARE. WILL CONTINUE TO CLOSELY MONITOR. BED IN LOWEST AND LOCKED POSITION, CALL LIGHT WITHIN EASY REACH, HOB KEPT ELEVATED FOR ASPIRATION PRECAUTIONS
--- NOTE | 2018-04-05 21:00 | NUR ---
BANDER AND CELLOPHANER MACHINE HELPER: NOTES - PICC INSERTION DR TAY WHITT AT BEDSIDE FOR PICC LINE PLACEMENT. PATIENT NOW WITH JOANN 2 LUMEN PICC LINE PATIENT TOLERATED PROCEDURE WELL. LEVOPHED DRIP NOW INFUSING VIA JOANN PICC
[2018-04-05] MEDS: PYRIDOXINE HCL 50 MG TABLET GT SCH (21:15)
[2018-04-05] MEDS: METOCLOPRAMIDE HCL 10 MG/2 ML VIAL IV PRN (21:15)
[2018-04-06] VITALS (106 sets, daily range): BP systolic 87–120; BP diastolic 42–58
[2018-04-06] MEDS: ACETYLCYSTEINE 20% SOLN 800 MG/4 ML VIAL NEB SCH ×4 (00:21→23:11)
--- NOTE | 2018-04-06 04:00 | NUR ---
RN NOTES BED BATH RENDERED, FLEXISEAL PATENT AND INTACT, CONTINUES TO DRAIN LIQUID BROWN STOOL. WOUND CARE PERFORMED, PATIENT TOLERATED WELL. WILL CONTINUE TO CLOSELY MONITOR
[2018-04-06 04:31] LABS: CALCIUM, SERUM 7.9 mg/dL (8.5-10.1); CREATININE 3.3 mg/dL (0.6-1.3); PHOSPHORUS 1.4 mg/dL (2.5-4.9); POTASSIUM 3.1 mmol/L (3.5-5.1)
[2018-04-06] MEDS: METRONIDAZOLE 250 MG TABLET PO SCH ×3 (05:09→20:25)
[2018-04-06] MEDS: BLOOD SUGAR DIAGNOSTIC 1 EACH STRIP IN SCH ×3 (05:09→17:13)
[2018-04-06] MEDS: INSULIN REGULAR, HUMAN 100 UNIT/ML 3 ML VIAL SQ PRN ×3 (05:11→17:13)
--- NOTE | 2018-04-06 06:10 | NUR ---
PARKING METER MECHANIC: CLOSING NOTES PATIENT RESTING IN BED, APPEARS COMFORTABLE, NODS NO WHEN ASKED IF EXPERIENCING PAIN/DISCOMFORT. PATIENT REPOSITIONED. PATIENT CONTINUES ON LEVOPHED DRIP, INFUSING THROUGH THE LEFT UPPER ARM PICC LINE. AFEBRILE AT THIS TIME, TMAX 99.9 DEGREES FAHRENHEIT THROUGHOUT SHIFT. WILL ENDORSE THE PATIENT TO THE AM SHIFT NURSE FOR CONTINUITY OF CARE
--- NOTE | 2018-04-06 07:05 | NUR ---
RN INITIAL NOTES RECEIVED PT AWAKE, A/OX1. ABLE TO FOLLOW SIMPLE COMMANDS. ON VENT. TRACH IN PLACE. NO RESPIRATORY DISTRESS NOTED. NO SOB NOTED. NO SIGNS OF PAIN NOTED. HOB ELEVATED. PICC LINE IN PLACE. RIGHT SUBCLAVIAN HD CATH IN PLACE. PT ON LEVO AT 6MCG/MIN. GT IN PLACE. TOLERATING GTF WELL. WILL MONITOR FOR LEAKING AROUND GT SITE. WILL KEEP CLEAN AND DRY. FLEXISEAL IN PLACE. BLE ELEVATED. PT REPOSITIONED. WILL MONITOR.
--- NOTE | 2018-04-06 08:02 | NUR ---
RT PT RECEIVED WITH A PORTEX 8 TRACH ON THE VENT WITH NOTED SETTINGS. PT IS AWAKE BUT DOES NOT FOLLOW COMMANDS. VENT ALARMS ARE SET AND AUDIBLE WITH BVM BY BEDSIDE. PORTABLE IRRIGATION OPERATOR CUFF PRESSURE NOTED. VENT IS PLUGGED INTO RED OUTLET. PT SX'D MINIMAL THIN WHITE/CLEAR SECRETIONS. NO RESPIRATORY DISTRESS NOTED AT THIS TIME, WILL CONTINUE TO MONITOR. Addendum: 04/06/18 at 0804 by BIJU PAPPAS RT Amended: Links added.
[2018-04-06 08:24] LABS: BASOPHILS % (AUTO) 0.3 % (0.0-2.0); EOSINOPHILS % (AUTO) 0.7 % (0.0-6.0); HEMOGLOBIN 7.1 g/dL (13.5-17.5); LYMPHOCYTES # (AUTO) 0.3 /CMM (0.8-4.8); LYMPHOCYTES % (AUTO) 8.2 % (20.0-44.0); MEAN CORPUSCULAR HGB CONC 35 g/dl (31.0-36.0); MEAN CORPUSCULAR VOLUME 107 fL (80-96); MONOCYTES # (AUTO) 0.2 /CMM (0.1-1.30); MONOCYTES % (AUTO) 5.9 % (2.0-12.0); NEUTROPHILS % (AUTO) 84.9 % (43.0-81.0); RDW COEFFICIENT OF VARIATION 18.4 (11.5-15.0); WHITE BLOOD COUNT (AUTO) 3.5 K/uL (4.3-11.0)
[2018-04-06 08:33] LABS: HEMATOCRIT 20 % (39-51)
[2018-04-06 08:34] LABS: PLATELET COUNT (AUTO) 37 /CMM (150-450)
[2018-04-06] MEDS: PROSOURCE / PROSTAT (PYXIS) 30 ML UDC GT SCH ×3 (08:43→16:49)
[2018-04-06] MEDS: PANTOPRAZOLE 40 MG VIAL IV SCH ×2 (08:43→16:47)
[2018-04-06] MEDS: GABAPENTIN 100 MG CAPSULE GT SCH ×2 (08:43→20:25)
[2018-04-06] MEDS: LEVETIRACETAM SOL (5 ML) 100 MG/ML UDC GT SCH ×2 (08:43→20:25)
[2018-04-06] MEDS: TRAMADOL HCL 50 MG TABLET PO SCH ×2 (08:43→20:29)
[2018-04-06] MEDS: VIT B CMPLX 3/FA/VIT C/BIOTIN 1 TAB TABLET GT SCH (08:43)
[2018-04-06] MEDS: SUCRALFATE 1 G/10 ML UDC GT SCH ×4 (08:43→21:45)
[2018-04-06] MEDS: LACTOBACILLUS RHAMNOSUS GG 1 EACH CAP.SPRINK GT SCH ×2 (08:43→16:47)
[2018-04-06] MEDS: SEVELAMER CARBONATE 0.8 GM POWD.PACK GT SCH (08:43)
[2018-04-06] MEDS: FOLIC ACID 1 MG TABLET GT SCH (08:43)
[2018-04-06] MEDS: HYDROGEL DRESSING 90 GM TUBE TP SCH ×2 (08:44→21:08)
[2018-04-06] MEDS: Z GUARD REMEDY 2 OZ OINT TP SCH (08:44)
[2018-04-06] MEDS: ZINC SULFATE 220 MG CAPSULE GT SCH (08:44)
[2018-04-06] MEDS: BACITRACIN/POLYMYXIN B 15 GM TUBE TP SCH (08:45)
[2018-04-06] MEDS: POLYVINYL ALCOHOL 15 ML BOTTLE EACHEYE SCH ×2 (08:45→21:47)
[2018-04-06] MEDS: INSULIN GLARGINE, 100 UNIT/ML CARTRIDGE SQ SCH ×2 (08:46→20:39)
[2018-04-06] MEDS: CARVEDILOL 12.5 MG TABLET GT SCH ×2 (08:58→21:00)
--- NOTE | 2018-04-06 09:20 | NUR ---
RN NOTES SEEN AND EXAMINED BY DR. ARCINIEGA. PT A/O. ON TRACH/VENT. NO RESPIRATORY DISTRESS NOTED. NO SOB NOTED. HOB ELEVATED. PT ON LEVO AT 4MCG/MIN. MD ORDERED TO REMOVE PEEP. MS AWARE OF CURRENT LAB VALUES AND CXR RESULT. WILL CONTINUE TO MONITOR.
[2018-04-06 10:10] LABS: BAND % (MANUAL) 4 % (0.0-5.0); LYMPHOCYTES % (MANUAL) 10 % (16-48); MONOCYTES % (MANUAL) 7 % (0-11.0); NEUTROPHILS % (MANUAL) 79 (42-76)
[2018-04-06] MEDS: NOREPINEPHRINE 16 MG in IV D5W 500 ML IV PRN (11:30)
[2018-04-06] MEDS ORDERED: POTASSIUM PHOSPHATE MM 15 MMOL in IV D5W 250 ML IV SCH (13:30)
[2018-04-06] MEDS: GLUCERNA 1.2 1,000 ML BOTTLE NG PRN (14:23)
[2018-04-06] MEDS: POTASSIUM PHOSPHATE MM 7.5 MMOL in IV D5W 100 ML IV SCH ×2 (14:37→18:02)
--- NOTE | 2018-04-06 18:51 | NUR ---
RN CLOSING NOTED PT REMAINS STABLE. NO SIGNIFICANT CHANGE NOTED. KEPT AIRWAY PATENT. KEPT HOB ELEVATED. REMAINS ON LEVO, BP CLOSELY MONITORED. TX PROVIDED ORDERED. KEPT CLEAN AND DRY. REPOSITIONED Q2. BLE ELEVATED. KEPT COMFORTABLE
--- NOTE | 2018-04-06 19:39 | NUR ---
ICU/RN RECEIVED PT AWAKE,TRACKS DOES NOT FOLLOW COMMANDS.ON VENT PER TRACH 30% FI02,SATURATION OF 100%.ON LEVOPHED DRIP AT 2MCG/MIN W/ SBP OF 101 MMHG,WILL CONTINUE TO MONITOR.
--- NOTE | 2018-04-06 20:48 | NUR ---
RECEIVED PT TRACH PTX [address] [facility] VENT. PT TOLERATING VENT SETTINGS. SX'D FOR SML AMT OF THIN WHITE SECRETIONS. VENT ALARMS SET AND AUDIBLE. AMBU BAG AT BEDSIDE. TRACH SECURED. VENT PLUGGED INTO RED OUTLET. WILL CONTINUE TO MONITOR. Addendum: 04/06/18 at 2047 by ISAAC HARRINGTON RT Amended: Links added.
[2018-04-06] MEDS: PYRIDOXINE HCL 50 MG TABLET GT SCH (21:46)
[2018-04-07] VITALS (105 sets, daily range): BP systolic 74–133; BP diastolic 42–102
[2018-04-07] MEDS: BLOOD SUGAR DIAGNOSTIC 1 EACH STRIP IN SCH ×4 (00:12→18:20)
[2018-04-07] MEDS: INSULIN REGULAR, HUMAN 100 UNIT/ML 3 ML VIAL SQ PRN ×4 (00:14→17:55)
--- NOTE | 2018-04-07 01:24 | NUR ---
ICU/RN TOLERATING TUBE FEEDINGS WELL,W/SCANT RESIDUAL.REMAINS ON LEVOPHED DRIP AT 2MCG/MIN.
[2018-04-07 04:47] LABS: BASOPHILS % (AUTO) 1.3 % (0.0-2.0); HEMATOCRIT 21 % (39-51); HEMOGLOBIN 7.2 g/dL (13.5-17.5); LYMPHOCYTES # (AUTO) 0.4 /CMM (0.8-4.8); LYMPHOCYTES % (AUTO) 16.7 % (20.0-44.0); MEAN CORPUSCULAR HGB CONC 34 g/dl (31.0-36.0); MEAN CORPUSCULAR VOLUME 107 fL (80-96); MONOCYTES # (AUTO) 0.2 /CMM (0.1-1.30); MONOCYTES % (AUTO) 7.6 % (2.0-12.0); NEUTROPHILS # (AUTO) 1.9 /CMM (1.8-8.9); NEUTROPHILS % (AUTO) 71.4 % (43.0-81.0); RDW COEFFICIENT OF VARIATION 18.5 (11.5-15.0); WHITE BLOOD COUNT (AUTO) 2.6 K/uL (4.3-11.0)
[2018-04-07 04:55] LABS: PLATELET COUNT (AUTO) 39 /CMM (150-450); RED BLOOD CELL COUNT(AUTO) 1.95 MIL/uL (4.5-6.0)
[2018-04-07 04:59] LABS: CREATININE 3.9 mg/dL (0.6-1.3); MAGNESIUM 2.5 mg/dL (1.8-2.4); PHOSPHORUS 2.7 mg/dL (2.5-4.9); POTASSIUM 3.3 mmol/L (3.5-5.1)
[2018-04-07 05:19] LABS: LYMPHOCYTES % (MANUAL) 16 % (16-48); MONOCYTES % (MANUAL) 7 % (0-11.0); NEUTROPHILS % (MANUAL) 73 (42-76)
[2018-04-07 05:20] LABS: EOSINOPHILS % (MANUAL) 4 % (0-4)
[2018-04-07] MEDS: METRONIDAZOLE 250 MG TABLET PO SCH ×3 (05:49→21:14)
--- NOTE | 2018-04-07 06:15 | NUR ---
ICU/RN REMAINS ON LEVOPHED DRIP AT 2MCG/MIN.CONTINUES TO TOLERATE TUBE FEEDING
--- NOTE | 2018-04-07 07:18 | NUR ---
RECEIVED PATIENT AWAKE AND ALERT TO NAME. VENT STABLE. TUBE FEEDING RUNNING PER ORDER NO RESIDUALS NOTED. G TUBE SITE COVERED/CLEAN/DRY WILL MONITOR. PATIENT ABDOMEN DISTENDED BUT SOFT. FLEXI SEAL IN PLACE FOR WOUND/SKIN CARE WILL MONITOR FOR LEAKAGE. PATIENT LISTENS TO OPEN MOUTH FOR TEMPERATURE CHECK. UNABLE TO SQUEEZE HANDS. SAFETY PRECAUTIONS IN PLACE, ASPIRATION PRECAUTIONS IN PLACE AND WILL ROUND PRN
[2018-04-07] MEDS: ACETYLCYSTEINE 20% SOLN 800 MG/4 ML VIAL NEB SCH ×3 (07:38→22:58)
--- NOTE | 2018-04-07 08:11 | NUR ---
RT PATIENT REC'D TRACHED ON [facility] VENT WITH SETTINGS SET BY . VENT ALARMS CHECKED + AUDIBLE. CUFF PRESSURE CHECKED DATABASE SECURITY EXPERT. PATIENT SUCTIONED WITH SMALL/MOD AMT PALE SEMI-THICK SECRETIONS. B/S DIM. BACK UP TRACH AND AMBU BAG AT [facility]. Addendum: 04/07/18 at 0811 by NICKOLAS NORRIS RT Amended: Links added.
[2018-04-07] MEDS: ZINC SULFATE 220 MG CAPSULE GT SCH (08:13)
[2018-04-07] MEDS: TRAMADOL HCL 50 MG TABLET PO SCH ×2 (08:13→21:16)
[2018-04-07] MEDS: VIT B CMPLX 3/FA/VIT C/BIOTIN 1 TAB TABLET GT SCH (08:13)
[2018-04-07] MEDS: Z GUARD REMEDY 2 OZ OINT TP SCH (08:13)
[2018-04-07] MEDS: PANTOPRAZOLE 40 MG VIAL IV SCH ×2 (08:13→18:19)
[2018-04-07] MEDS: GABAPENTIN 100 MG CAPSULE GT SCH ×2 (08:13→21:14)
[2018-04-07] MEDS: FOLIC ACID 1 MG TABLET GT SCH (08:13)
[2018-04-07] MEDS: LACTOBACILLUS RHAMNOSUS GG 1 EACH CAP.SPRINK GT SCH ×2 (08:13→18:19)
[2018-04-07] MEDS: PROSOURCE / PROSTAT (PYXIS) 30 ML UDC GT SCH ×3 (08:13→18:19)
[2018-04-07] MEDS: HYDROGEL DRESSING 90 GM TUBE TP SCH ×2 (08:13→21:17)
[2018-04-07] MEDS: LEVETIRACETAM SOL (5 ML) 100 MG/ML UDC GT SCH ×2 (08:13→21:14)
[2018-04-07] MEDS: SUCRALFATE 1 G/10 ML UDC GT SCH ×4 (08:13→21:14)
[2018-04-07] MEDS: CARVEDILOL 12.5 MG TABLET GT SCH ×2 (08:13→21:16)
[2018-04-07] MEDS: POLYVINYL ALCOHOL 15 ML BOTTLE EACHEYE SCH ×2 (08:15→21:18)
[2018-04-07] MEDS: BACITRACIN/POLYMYXIN B 15 GM TUBE TP SCH (08:16)
[2018-04-07] MEDS: INSULIN GLARGINE, 100 UNIT/ML CARTRIDGE SQ SCH ×2 (08:25→21:17)
[2018-04-07] MEDS: MIDODRINE HCL (5MG) 5 MG TABLET GT SCH ×2 (09:21→18:19)
--- NOTE | 2018-04-07 09:27 | NUR ---
VITALY SHELLEY AT BEDSIDE. UPDATED ON PATIENT CONDITION, LABS, VS. PER MD WILL CHANGE MIDODRINE TO SCHEDULED AND DC PRN. NO OTHER ORDERS AT THIS TIME. PATIENT TOLERATING 1MCG/MIN OF LEVO. WHEN TURNED OFF PATIENT BP IN 80'S SYSTOLIC Addendum: 04/07/18 at 1148 by LO GAYTAN RN PER DR VELA CONTINUE PATIENT ON LEVO WILL HAVE HD TODAY
[2018-04-07] MEDS ORDERED: EPOETIN ALFA (10,000 UNIT) 10,000 UNIT/ML VIAL SQ ONE (10:00)
[2018-04-07] MEDS: NOREPINEPHRINE 16 MG in IV D5W 500 ML IV PRN (11:22)
[2018-04-07] MEDS: GLUCERNA 1.2 1,000 ML BOTTLE NG PRN (11:30)
--- NOTE | 2018-04-07 16:15 | NUR ---
ERMA RUBALCAVA AT BEDSIDE.
--- NOTE | 2018-04-07 17:59 | NUR ---
GIBRAN AT BEDSIDE. UPDATED ON PATIENT CONDITION, LABS, VS. PER ORDER BLOOD CULTURES TAKEN FROM BOTH HD CATH SITE AND CENTRAL LINE.
--- NOTE | 2018-04-07 18:15 | NUR ---
HD COMPLETED. 2 L OUT. PATIENT LEVO AT 6MCG/MIN WILL TITRATE TOLERATED
[2018-04-07] MEDS: VANCOMYCIN 500 MG in IV NS 0.9% 100 ML IV PRN (18:18)
--- NOTE | 2018-04-07 18:42 | NUR ---
PATIENT STABLE AT THIS TIME. ALL DUE MEDS GIVEN AND ALL NEEDS MET. PATIENT SAFETY PRECAUTIONS AND ASPIRATION PRECAUTIONS IN PLACE. VENT STABLE. IV SITES CLEAN DRY INTACT PATENT. TOLERATING TUBE FEEDING NO RESIDUAL NOTED. CARE WILL BE ENDORSED TO RN FOR KRYS.
--- NOTE | 2018-04-07 20:00 | NUR ---
STRIPPER LATEX - NOTES - RECEIVED PATIENT AWAKE AND ALERT TO NAME. VENT STABLE. TUBE FEEDING RUNNING PER ORDER NO RESIDUALS NOTED. G TUBE SITE COVERED/CLEAN/DRY WILL MONITOR. PATIENT ABDOMEN DISTENDED BUT SOFT. FLEXI SEAL IN PLACE FOR WOUND/SKIN CARE WILL MONITOR FOR LEAKAGE. PATIENT LISTENS TO OPEN MOUTH FOR TEMPERATURE CHECK. UNABLE TO SQUEEZE HANDS. SAFETY PRECAUTIONS IN PLACE, ASPIRATION PRECAUTIONS IN PLACE AND WILL ROUND PRN
[2018-04-07] MEDS: PYRIDOXINE HCL 50 MG TABLET GT SCH (21:14)
--- NOTE | 2018-04-07 21:19 | NUR ---
RECEIVED PT TRACH PTX 8 ON [facility] VENT. PT TOLERATING VENT SETTINGS. SX'D FOR SML AMT OF THIN WHITE SECRETIONS. VENT ALARMS SET AND AUDIBLE. AMBU BAG AT BEDSIDE. TRACH SECURED. VENT PLUGGED INTO RED OUTLET. WILL CONTINUE TO MONITOR. Addendum: 04/07/18 at 2119 by ISAAC HARRINGTON RT Amended: Links added.
[2018-04-08] VITALS (72 sets, daily range): BP systolic 74–139; BP diastolic 39–67
[2018-04-08] MEDS: BLOOD SUGAR DIAGNOSTIC 1 EACH STRIP IN SCH ×4 (00:23→16:55)
[2018-04-08] MEDS: MIDODRINE HCL (5MG) 5 MG TABLET GT SCH ×3 (00:25→18:19)
[2018-04-08] MEDS: INSULIN REGULAR, HUMAN 100 UNIT/ML 3 ML VIAL SQ PRN ×3 (00:28→16:54)
[2018-04-08 04:39] LABS: BASOPHILS % (AUTO) 0.2 % (0.0-2.0); EOSINOPHILS % (AUTO) 0.4 % (0.0-6.0); HEMATOCRIT 26 % (39-51); HEMOGLOBIN 9.1 g/dL (13.5-17.5); LYMPHOCYTES # (AUTO) 0.6 /CMM (0.8-4.8); LYMPHOCYTES % (AUTO) 4.7 % (20.0-44.0); MEAN CORPUSCULAR HGB CONC 35 g/dl (31.0-36.0); MEAN CORPUSCULAR VOLUME 108 fL (80-96); MONOCYTES # (AUTO) 0.5 /CMM (0.1-1.30); MONOCYTES % (AUTO) 4.1 % (2.0-12.0); NEUTROPHILS # (AUTO) 10.9 /CMM (1.8-8.9); NEUTROPHILS % (AUTO) 90.6 % (43.0-81.0); PLATELET COUNT (AUTO) 59 /CMM (150-450); RDW COEFFICIENT OF VARIATION 18.8 (11.5-15.0); RED BLOOD CELL COUNT(AUTO) 2.43 MIL/uL (4.5-6.0)
[2018-04-08 05:16] LABS: CREATININE 3.2 mg/dL (0.6-1.3); MAGNESIUM 2.4 mg/dL (1.8-2.4); PHOSPHORUS 1.5 mg/dL (2.5-4.9); POTASSIUM 3.5 mmol/L (3.5-5.1)
[2018-04-08 05:25] LABS: BAND % (MANUAL) 4 % (0.0-5.0); LYMPHOCYTES % (MANUAL) 4 % (16-48); MONOCYTES % (MANUAL) 3 % (0-11.0); NEUTROPHILS % (MANUAL) 89 (42-76)
[2018-04-08] MEDS: METRONIDAZOLE 250 MG TABLET PO SCH ×2 (05:44→12:02)
[2018-04-08] MEDS: GLUCERNA 1.2 1,000 ML BOTTLE NG PRN (05:44)
[2018-04-08] MEDS: ACETYLCYSTEINE 20% SOLN 800 MG/4 ML VIAL NEB SCH ×3 (07:35→23:34)
--- NOTE | 2018-04-08 07:36 | NUR ---
MAIL DELIVERY SUPERVISOR RECEIVED PATIENT FROM THE PREVIOUS SHIFT. PATIENT IS IN BED. RESTING COMFORTABLY. VENT SETTINGS REVIEWED AND VERIFIED. TEMP 99.4. SINUS RHYTHM ON MONITOR. GT FEEDING TOLERATED FAIRLY. LEVOPHED AT 2 MCG FOR BP MAINTENANCE. WILL CONTINUE TO MONITOR AND PROVIDE CARE.
[2018-04-08] MEDS: Z GUARD REMEDY 2 OZ OINT TP SCH (08:44)
[2018-04-08] MEDS: HYDROGEL DRESSING 90 GM TUBE TP SCH ×2 (08:45→21:25)
[2018-04-08] MEDS: CARVEDILOL 12.5 MG TABLET GT SCH ×2 (08:46→21:00)
[2018-04-08] MEDS: POLYVINYL ALCOHOL 15 ML BOTTLE EACHEYE SCH ×2 (08:46→21:16)
[2018-04-08] MEDS: PANTOPRAZOLE 40 MG VIAL IV SCH ×2 (08:49→16:57)
[2018-04-08] MEDS: ZINC SULFATE 220 MG CAPSULE GT SCH (08:49)
[2018-04-08] MEDS: LEVETIRACETAM SOL (5 ML) 100 MG/ML UDC GT SCH ×2 (08:49→21:16)
[2018-04-08] MEDS: TRAMADOL HCL 50 MG TABLET PO SCH ×2 (08:50→21:17)
[2018-04-08] MEDS: FOLIC ACID 1 MG TABLET GT SCH (08:50)
[2018-04-08] MEDS: LACTOBACILLUS RHAMNOSUS GG 1 EACH CAP.SPRINK GT SCH ×2 (08:50→16:57)
[2018-04-08] MEDS: GABAPENTIN 100 MG CAPSULE GT SCH ×2 (08:50→21:26)
[2018-04-08] MEDS: VIT B CMPLX 3/FA/VIT C/BIOTIN 1 TAB TABLET GT SCH (08:50)
[2018-04-08] MEDS: BACITRACIN/POLYMYXIN B 15 GM TUBE TP SCH (08:51)
[2018-04-08] MEDS: PROSOURCE / PROSTAT (PYXIS) 30 ML UDC GT SCH ×3 (08:52→16:59)
[2018-04-08] MEDS: SUCRALFATE 1 G/10 ML UDC GT SCH ×4 (08:53→21:23)
[2018-04-08] MEDS: INSULIN GLARGINE, 100 UNIT/ML CARTRIDGE SQ SCH ×2 (08:54→21:38)
[2018-04-08] MEDS: HYDROCORTISONE SOD SUCCINATE 100 MG/2 ML VIAL IV SCH ×3 (09:48→21:21)
[2018-04-08] MEDS: NOREPINEPHRINE 8 MG in IV D5W 500 ML IV PRN ×2 (12:49→23:06)
[2018-04-08] MEDS ORDERED: NEUTRA PHOS 1 POWD.PACKET GT ONE (16:30)
[2018-04-08] MEDS ORDERED: DEXTROSE 50%-WATER 50 ML DISP.SYRIN IV PRN (19:00)
--- NOTE | 2018-04-08 20:05 | NUR ---
RN NOTES RECEIVED PATIENT LAYING COMFORTABLY IN BED WITH RESPIRATORY DISTRESS OR SHORTNESS OF BREATH. BREATHING EVEN AND UNLABORED. VENT SETTING WELL TOLERATED. NO PHYSICAL MANIFESTATION OF PAIN OR DISCOMFORT. OPENS EYES, NOTED WITH EYE TRACKING, NON VERBAL. GTUBE IN PLACE. FEEDING WELL TOLERATED. HOB ELEVATED. KEPT CLEAN AND DRY. WILL CONTINUE TO MONITOR
--- NOTE | 2018-04-08 21:10 | NUR ---
RN NOTES NON ADMINISTRATION OF COREG 25MG. SBP <110. COREG 2 TABS 12.25MG WASTED.
[2018-04-08] MEDS: PYRIDOXINE HCL 50 MG TABLET GT SCH (21:17)
[2018-04-09] VITALS (77 sets, daily range): BP systolic 69–169; BP diastolic 44–93
[2018-04-09] MEDS: GLUCERNA 1.2 1,000 ML BOTTLE NG PRN (01:16)
[2018-04-09] MEDS: MIDODRINE HCL (5MG) 5 MG TABLET GT SCH ×3 (01:16→16:07)
[2018-04-09] MEDS: INSULIN REGULAR, HUMAN 100 UNIT/ML 3 ML VIAL SQ PRN ×3 (01:31→11:32)
[2018-04-09 04:48] LABS: CALCIUM, SERUM 8.1 mg/dL (8.5-10.1); PHOSPHORUS 3.3 mg/dL (2.5-4.9); POTASSIUM 4.5 mmol/L (3.5-5.1)
[2018-04-09] MEDS: HYDROCORTISONE SOD SUCCINATE 100 MG/2 ML VIAL IV SCH ×3 (05:04→21:34)
[2018-04-09] MEDS: BLOOD SUGAR DIAGNOSTIC 1 EACH STRIP IN SCH ×4 (05:23→17:09)
--- NOTE | 2018-04-09 07:36 | NUR ---
ANIMAL CONTROL LICENSING WORKER RECEIVED PATIENT FROM THE PREVIOUS SHIFT. PATIENT IS IN BED. BLEEDING NOTED FROM GT SITE. TUBE FEEDING HELD. VENT SETTINGS REVIEWED AND VERIFIED. SUCTIONED TRACH FOR CLEARANCE. AFEBRILE. STABLE BP. TURNED AND REPOSITIONED FOR COMFORT AND WOUND PREVENTION. WILL CONTINUE TO MONITOR AND PROVIDE CARE.
[2018-04-09] MEDS: ACETYLCYSTEINE 20% SOLN 800 MG/4 ML VIAL NEB SCH ×3 (07:43→23:52)
[2018-04-09 07:44] LABS: BASOPHILS % (AUTO) 0.1 % (0.0-2.0); EOSINOPHILS % (AUTO) 0.2 % (0.0-6.0); LYMPHOCYTES # (AUTO) 0.2 /CMM (0.8-4.8); LYMPHOCYTES % (AUTO) 6.6 % (20.0-44.0); MEAN CORPUSCULAR HGB CONC 34 g/dl (31.0-36.0); MEAN CORPUSCULAR VOLUME 108 fL (80-96); MONOCYTES % (AUTO) 1.4 % (2.0-12.0); NEUTROPHILS # (AUTO) 2.1 /CMM (1.8-8.9); NEUTROPHILS % (AUTO) 91.7 % (43.0-81.0); RDW COEFFICIENT OF VARIATION 18.8 (11.5-15.0); WHITE BLOOD COUNT (AUTO) 2.3 K/uL (4.3-11.0)
[2018-04-09 07:45] LABS: RED BLOOD CELL COUNT(AUTO) 1.71 MIL/uL (4.5-6.0)
[2018-04-09 07:48] LABS: HEMATOCRIT 18 % (39-51); HEMOGLOBIN 6.3 g/dL (13.5-17.5); PLATELET COUNT (AUTO) 33 /CMM (150-450)
[2018-04-09 08:39] LABS: LYMPHOCYTES % (MANUAL) 5 % (16-48); MONOCYTES % (MANUAL) 2 % (0-11.0); NEUTROPHILS % (MANUAL) 93 (42-76)
[2018-04-09] MEDS: CARVEDILOL 12.5 MG TABLET GT SCH ×2 (09:00→21:00)
[2018-04-09] MEDS: POLYVINYL ALCOHOL 15 ML BOTTLE EACHEYE SCH ×2 (09:25→21:36)
[2018-04-09] MEDS: Z GUARD REMEDY 2 OZ OINT TP SCH (09:25)
[2018-04-09] MEDS: HYDROGEL DRESSING 90 GM TUBE TP SCH ×2 (09:25→21:35)
[2018-04-09] MEDS: BACITRACIN/POLYMYXIN B 15 GM TUBE TP SCH (09:26)
[2018-04-09] MEDS: PROSOURCE / PROSTAT (PYXIS) 30 ML UDC GT SCH ×3 (09:29→16:08)
[2018-04-09] MEDS: LACTOBACILLUS RHAMNOSUS GG 1 EACH CAP.SPRINK GT SCH ×2 (09:31→16:07)
[2018-04-09] MEDS: LEVETIRACETAM SOL (5 ML) 100 MG/ML UDC GT SCH ×2 (09:31→21:00)
[2018-04-09] MEDS: FOLIC ACID 1 MG TABLET GT SCH (09:31)
[2018-04-09] MEDS: SUCRALFATE 1 G/10 ML UDC GT SCH ×4 (09:32→21:25)
[2018-04-09] MEDS: PANTOPRAZOLE 40 MG VIAL IV SCH ×2 (09:36→17:09)
[2018-04-09] MEDS: ZINC SULFATE 220 MG CAPSULE GT SCH (09:38)
[2018-04-09] MEDS: VIT B CMPLX 3/FA/VIT C/BIOTIN 1 TAB TABLET GT SCH (09:38)
[2018-04-09] MEDS: TRAMADOL HCL 50 MG TABLET PO SCH ×2 (09:38→21:00)
[2018-04-09] MEDS: GABAPENTIN 100 MG CAPSULE GT SCH ×2 (09:41→21:00)
[2018-04-09] MEDS: INSULIN GLARGINE, 100 UNIT/ML CARTRIDGE SQ SCH ×2 (09:44→21:00)
--- NOTE | 2018-04-09 10:59 | NUR ---
CLINICAL TRIAL EDUCATOR RN CALLED PATIENT'S DAUGHTER ABOUT [employer] [facility] RECOMMENDATION TO REMOVE DIALYSIS CATHETER FOR A LINE HOLIDAY. RN PROVIDED EDUCATION TO THE FAMILY MEMBER. FAMILY INCLUDING PATIENT'S DOES NOT AGREE TO REMOVING THE DIALYSIS CATHETER AT THIS TIME. FAMILY ALSO REQUESTING TO TRANSFER THE PATIENT TO [facility] AT THIS TIME. RN PAGED DR. SCHWARTZ REGARDING THE FAMILY PREFERENCE. AWAITING REPLY.
--- NOTE | 2018-04-09 11:21 | NUR ---
PLANNER DR SCHWARTZ MADE AWARE THAT PATIENT'S FAMILY IS REFUSING DO REMOVE DIALYSIS CATH. DR SCHWARTZ MADE AWARE THAT PATIENT IS ACTIVELY BLEEDING FROM GT SITE AND GT FEED ON HOLD. DR SCHWARTZ MADE AWARE THAT PATIENT'S FAMILY IS REQUESTING TO MOVE HIM TO [facility]. TWO UNITS BLOOD GIVEN WITH HD. NO FOLLOW UP [facility] FOR TODAY. WILL CLOSELY MONITOR.
[2018-04-09] MEDS: NOREPINEPHRINE 8 MG in IV D5W 500 ML IV PRN (16:53)
[2018-04-09] MEDS: VANCOMYCIN 500 MG in IV NS 0.9% 100 ML IV PRN (16:53)
[2018-04-09] MEDS: PYRIDOXINE HCL 50 MG TABLET GT SCH (21:26)
--- NOTE | 2018-04-09 22:00 | NUR ---
DIRECTOR OF FEDERAL SALES UNABLE TO ADMINISTER MEDS VIA G TUBE IT IS LEAKING LARGE AMOUNT OF FOUL SMELLING LIQUID.
[2018-04-10] VITALS (37 sets, daily range): BP systolic 102–137; BP diastolic 47–72
[2018-04-10] MEDS: MIDODRINE HCL (5MG) 5 MG TABLET GT SCH ×3 (00:41→16:09)
[2018-04-10] MEDS: BLOOD SUGAR DIAGNOSTIC 1 EACH STRIP IN SCH ×4 (00:41→18:36)
[2018-04-10 04:59] LABS: CALCIUM, SERUM 7.9 mg/dL (8.5-10.1); CREATININE 3.1 mg/dL (0.6-1.3); POTASSIUM 3.7 mmol/L (3.5-5.1)
[2018-04-10] MEDS: HYDROCORTISONE SOD SUCCINATE 100 MG/2 ML VIAL IV SCH ×3 (05:18→21:26)
--- NOTE | 2018-04-10 06:59 | NUR ---
SPOUT POSITIONER MULTIPLE DRESSING CHANGES TO G TUBE SITE IT CONTINUES TO LEAK. FEEDING REMAINS ON HOLD.
[2018-04-10] MEDS: SUCRALFATE 1 G/10 ML UDC GT SCH ×4 (07:30→21:22)
--- NOTE | 2018-04-10 07:50 | NUR ---
GIRLS SWIMMING COACH NOTES RECEIVED PATIENT AOX1-2 UNDERSTAND TRISTANIAN ABLE TO FOLLOW COMMANDS , NON VERBAL , NOT IN ACUTE DISTRESS , RESPIRATIONS EVEN AND UNLABORED , TRACH OF PORTEX # [address] , TOLERATING CURRENT VENT SETTINGS WITH SPO2 OF 100% , SR 85 ON BEDSIDE MONITOR , GT INTACT NOTED WITH CLEAR GREENISH LEAK WITH FOUL SMELL WHILE FLUSHING , GT FEEDING ON HOLD , FLEXI SEAL DRAINING VIA GRAVITY WITH BROWN LIQUID STOOL , JOANN PICC LINE PATENT AND INTACT WITH NS @ TKO , R IJ PERMA CATH C/D/I , HOB @ 35 , WILL CONTINUE TO MONITOR .
[2018-04-10 08:07] LABS: HEMATOCRIT 24 % (39-51); HEMOGLOBIN 8.2 g/dL (13.5-17.5); LYMPHOCYTES # (AUTO) 0.2 /CMM (0.8-4.8); LYMPHOCYTES % (AUTO) 3.8 % (20.0-44.0); MEAN CORPUSCULAR HGB CONC 34 g/dl (31.0-36.0); MEAN CORPUSCULAR VOLUME 103 fL (80-96); MONOCYTES # (AUTO) 0.1 /CMM (0.1-1.30); NEUTROPHILS # (AUTO) 5.1 /CMM (1.8-8.9); NEUTROPHILS % (AUTO) 95.2 % (43.0-81.0); RDW COEFFICIENT OF VARIATION 20.5 (11.5-15.0); RED BLOOD CELL COUNT(AUTO) 2.32 MIL/uL (4.5-6.0); WHITE BLOOD COUNT (AUTO) 5.4 K/uL (4.3-11.0)
[2018-04-10 08:10] LABS: PLATELET COUNT (AUTO) 33 /CMM (150-450)
[2018-04-10] MEDS: PANTOPRAZOLE 40 MG VIAL IV SCH ×2 (08:19→16:12)
[2018-04-10] MEDS: HYDROGEL DRESSING 90 GM TUBE TP SCH ×2 (08:20→21:55)
[2018-04-10] MEDS: Z GUARD REMEDY 2 OZ OINT TP SCH (08:20)
[2018-04-10] MEDS: BACITRACIN/POLYMYXIN B 15 GM TUBE TP SCH (08:21)
[2018-04-10] MEDS: POLYVINYL ALCOHOL 15 ML BOTTLE EACHEYE SCH ×2 (08:21→21:55)
--- NOTE | 2018-04-10 08:25 | NUR ---
SUPERVISOR ADVERTISING DISPATCH CLERKS NOTES NOTIFIED FAHEEM BARROW REGARDING GT TUBE SITE LEAK , NOTED WITH GREENISH OUTPUT WITH FOUL SMELL , PER RN WHILE GIVENG GT MEDS , MEDICATIONS LEAK AROUND GT SITE , PER EFREN HOLD GT FEEDING , VERIFIED IF SHE WANTS TO HOLD GT FEEDING AND KEEP NPO , AWAITING FOR ORDERS
[2018-04-10] MEDS: ACETYLCYSTEINE 20% SOLN 800 MG/4 ML VIAL NEB SCH ×3 (08:31→23:30)
[2018-04-10] MEDS: TRAMADOL HCL 50 MG TABLET PO SCH ×2 (09:00→21:23)
[2018-04-10] MEDS: LEVETIRACETAM SOL (5 ML) 100 MG/ML UDC GT SCH (09:00)
[2018-04-10] MEDS: LACTOBACILLUS RHAMNOSUS GG 1 EACH CAP.SPRINK GT SCH ×2 (09:00→16:09)
[2018-04-10] MEDS: FOLIC ACID 1 MG TABLET GT SCH (09:00)
[2018-04-10] MEDS: ZINC SULFATE 220 MG CAPSULE GT SCH (09:00)
[2018-04-10] MEDS: VIT B CMPLX 3/FA/VIT C/BIOTIN 1 TAB TABLET GT SCH (09:00)
[2018-04-10] MEDS: INSULIN GLARGINE, 100 UNIT/ML CARTRIDGE SQ SCH (09:00)
[2018-04-10] MEDS: GABAPENTIN 100 MG CAPSULE GT SCH ×2 (09:00→21:22)
[2018-04-10] MEDS: PROSOURCE / PROSTAT (PYXIS) 30 ML UDC GT SCH ×3 (09:00→16:09)
[2018-04-10] MEDS: CARVEDILOL 12.5 MG TABLET GT SCH ×2 (09:00→21:25)
--- NOTE | 2018-04-10 10:38 | NUR ---
ACCOUNT ASSOCIATE NOTES RECEIVED TO ORDER FROM FAHEEM DECKER TO KEEP PT NPO AND HOLD GT FEEDING , ORDER CARRIED OUT
[2018-04-10 11:16] LABS: BAND % (MANUAL) 1 % (0.0-5.0); LYMPHOCYTES % (MANUAL) 3 % (16-48); MONOCYTES % (MANUAL) 3 % (0-11.0); NEUTROPHILS % (MANUAL) 93 (42-76)
[2018-04-10] MEDS: LEVETIRACETAM (500MG) 500 MG in IV NS 0.9% 100 ML IV SCH ×2 (11:29→21:26)
[2018-04-10] MEDS ORDERED: DEXTROSE 50%-WATER 50 ML DISP.SYRIN IV PRN (13:00)
--- NOTE | 2018-04-10 13:00 | NUR ---
OPERATOR/ASSISTANT FOREMAN NOTES SEEN AND EVALUATED BY DR VELA , DISCUSSED LATEST LABS , GT FEEDING ON HOLD GT SITE LEAKS WITH GREENISH AMOUNT OF OUTPUT WITH FOUL SMELL , DISCUSSED IF SHE WANTS TO START IVF AND CHANGE Q6 INSULIN SLIDING SCALE( AGGRESSIVE) LANTUS 24UNITS Q 12 HELD BS OF 183 , OFF LEVOPHED SINCE YESTERDAY , AFEBRILE , V/S STABLE , FAMILY IS REFUSING TO REMOVE HD CATH , AWARE , OK TO DC LANTUS , CHANGE SSI TO Q6 MILD , AWAITING FOR MORE ORDERS
[2018-04-10] MEDS: INSULIN REGULAR, HUMAN 100 UNIT/ML 3 ML VIAL SQ PRN ×2 (13:28→18:37)
[2018-04-10] MEDS: IV D5/ 0.9% NACL 1,000 ML IV PRN (13:30)
[2018-04-10] MEDS ORDERED: FEE PK DOSING 1 MIN EA MC ONE (15:47)
[2018-04-10] MEDS ORDERED: GENTAMICIN 120 MG in IV D5W 100 ML IV ONE (16:00)
[2018-04-10] MEDS: PYRIDOXINE HCL 50 MG TABLET GT SCH (21:22)
[2018-04-11] VITALS (65 sets, daily range): BP systolic 73–141; BP diastolic 28–64
[2018-04-11] MEDS: INSULIN REGULAR, HUMAN 100 UNIT/ML 3 ML VIAL SQ PRN ×4 (00:16→23:53)
[2018-04-11] MEDS: BLOOD SUGAR DIAGNOSTIC 1 EACH STRIP IN SCH ×5 (00:17→23:51)
[2018-04-11] MEDS: MIDODRINE HCL (5MG) 5 MG TABLET GT SCH (01:00)
[2018-04-11 04:34] LABS: BASOPHILS % (AUTO) 0.1 % (0.0-2.0); EOSINOPHILS % (AUTO) 0.1 % (0.0-6.0); HEMATOCRIT 22 % (39-51); HEMOGLOBIN 7.5 g/dL (13.5-17.5); LYMPHOCYTES # (AUTO) 0.1 /CMM (0.8-4.8); LYMPHOCYTES % (AUTO) 5.7 % (20.0-44.0); MEAN CORPUSCULAR HGB CONC 34 g/dl (31.0-36.0); MEAN CORPUSCULAR VOLUME 104 fL (80-96); MONOCYTES # (AUTO) 0.1 /CMM (0.1-1.30); MONOCYTES % (AUTO) 2.9 % (2.0-12.0); NEUTROPHILS # (AUTO) 2.3 /CMM (1.8-8.9); NEUTROPHILS % (AUTO) 91.2 % (43.0-81.0); RDW COEFFICIENT OF VARIATION 20.1 (11.5-15.0); RED BLOOD CELL COUNT(AUTO) 2.13 MIL/uL (4.5-6.0); WHITE BLOOD COUNT (AUTO) 2.6 K/uL (4.3-11.0)
[2018-04-11 04:42] LABS: PLATELET COUNT (AUTO) 31 /CMM (150-450)
[2018-04-11 04:53] LABS: CREATININE 3.8 mg/dL (0.6-1.3); MAGNESIUM 2.9 mg/dL (1.8-2.4); POTASSIUM 4.2 mmol/L (3.5-5.1)
[2018-04-11 05:04] LABS: LYMPHOCYTES % (MANUAL) 8 % (16-48); MONOCYTES % (MANUAL) 3 % (0-11.0); NEUTROPHILS % (MANUAL) 89 (42-76)
[2018-04-11] MEDS: HYDROCORTISONE SOD SUCCINATE 100 MG/2 ML VIAL IV SCH ×3 (05:13→20:48)
--- NOTE | 2018-04-11 06:45 | NUR ---
HOTEL ENGINEER - REC'D PT. TRACHED/VENTED/PEGGED. TF IS ON HOLD AT PRESENT. FLEXISEAL TO GRAVITY W/ 50CC O/P FOR 12HR SHIFT. COMPLETE BEDBATH ADM. AT 4AM. TRACH,ORAL,DANIELA,PEG & SKIN/WOUND CARE GIVEN. AT 1AM, MIDODRINE WAS SUP - POSED TO BE ADMINISTERED, HOWEVER-NOT AVAILABLE IN ICU NOR [facility]. PT. IS COMMUNICATING W/EYE MOVEMENT. PT'S PEG IS LEAKING A BILE SUBSTANCE & IS SIGNIFICANTLY OOZING. DRESSING PREPPED AROUND PEG INSERTION SITE. PT.IS A QUAD. ROM'S DONE Q 2 HRS WHEN REPOSITIONING. REPORT ENDORSED TO JUDIT AYALA. CONT. POC.
[2018-04-11] MEDS: ACETYLCYSTEINE 20% SOLN 800 MG/4 ML VIAL NEB SCH ×3 (07:35→23:25)
--- NOTE | 2018-04-11 07:36 | NUR ---
RT PATIENT REC'D TRACHED ON [facility] VENT WITH ORDERED SETTINGS DENNSI WELL. VENT ALARMS CHECKED + AUDIBLE. CUFF PRESSURE CHECKED REGISTERED CLINICAL DIETITIAN. AIRWAY SUCTIONED WITH SMALL AMT OF PALE SEMITHICK SECRETIONS. B/S DIM COARSE, PATIENT NON VERBAL AND DOES NOT RESPOND TO COMMANDS. NO SOB NOTED AT THIS TIME. AMBU BAG AT HOB Addendum: 04/11/18 at 1101 by NICKOLAS NORRIS RT Amended: Links added.
[2018-04-11] MEDS: SUCRALFATE 1 G/10 ML UDC GT SCH ×4 (07:54→23:23)
[2018-04-11] MEDS: CARVEDILOL 12.5 MG TABLET GT SCH ×2 (09:00→20:52)
[2018-04-11] MEDS: POLYVINYL ALCOHOL 15 ML BOTTLE EACHEYE SCH ×2 (09:35→20:49)
[2018-04-11] MEDS: PANTOPRAZOLE 40 MG VIAL IV SCH ×2 (09:36→17:41)
[2018-04-11] MEDS: VIT B CMPLX 3/FA/VIT C/BIOTIN 1 TAB TABLET GT SCH (09:36)
[2018-04-11] MEDS: GABAPENTIN 100 MG CAPSULE GT SCH ×2 (09:37→20:51)
[2018-04-11] MEDS: LACTOBACILLUS RHAMNOSUS GG 1 EACH CAP.SPRINK GT SCH ×2 (09:37→17:41)
[2018-04-11] MEDS: TRAMADOL HCL 50 MG TABLET PO SCH ×2 (09:37→20:48)
[2018-04-11] MEDS: FOLIC ACID 1 MG TABLET GT SCH (09:37)
[2018-04-11] MEDS: Z GUARD REMEDY 2 OZ OINT TP SCH (09:38)
[2018-04-11] MEDS: HYDROGEL DRESSING 90 GM TUBE TP SCH ×2 (09:38→20:52)
[2018-04-11] MEDS: BACITRACIN/POLYMYXIN B 15 GM TUBE TP SCH (09:38)
[2018-04-11] MEDS: PROSOURCE / PROSTAT (PYXIS) 30 ML UDC GT SCH ×3 (09:45→17:41)
[2018-04-11] MEDS: ZINC SULFATE 220 MG CAPSULE GT SCH (09:45)
[2018-04-11] MEDS: LEVETIRACETAM (500MG) 500 MG in IV NS 0.9% 100 ML IV SCH ×2 (10:46→20:49)
[2018-04-11] MEDS: MIDODRINE HCL 2.5 MG TABLET GT SCH ×2 (10:47→17:52)
[2018-04-11] MEDS: NOREPINEPHRINE 8 MG in IV D5W 500 ML IV PRN ×2 (12:28→15:49)
--- NOTE | 2018-04-11 16:39 | NUR ---
SPOOL SORTER. RECEIVED THE PT FROM DELIA AT 1600. PT AWAKE. ALERT. NONVERBAL. TRACH TO VENT CONNECTED. PORTEX #8. AC 14, TV 500, FIO2 30%, SAT 98%. NO ACUTE DISTRESS NOTED. JEWELRY DEPARTMENT SUPERVISOR SHOWING NSR. IV LT UPPER ARM PICC LINE IVF D5NS 30ML/H. LEVOPHED 2MCG/MIN. GT CLAMPED. ABDOMEN DISTENDED. NPO. FLEXA SEAL INTACT. HOB ELEVATED. TURN AND REPOSITION Q2H. PM CARE GIVEN. WILL CONTINUE TO MONITOR VITALS.
[2018-04-11] MEDS: GENTAMICIN 80 MG in IV NS 0.9% 50 ML IV PRN (17:45)
[2018-04-11] MEDS: IV D5/ 0.9% NACL 1,000 ML IV PRN (20:48)
--- NOTE | 2018-04-11 21:05 | NUR ---
GAS DESULFURIZER. 2100 COREG NOT GIVEN. HEART RATE 58, LEVO ON RUNNING,
[2018-04-11] MEDS: PYRIDOXINE HCL 50 MG TABLET GT SCH (23:23)
[2018-04-12] VITALS (55 sets, daily range): BP systolic 95–160; BP diastolic 49–70
[2018-04-12] MEDS: MIDODRINE HCL 2.5 MG TABLET GT SCH ×3 (01:59→17:06)
--- NOTE | 2018-04-12 03:29 | NUR ---
FREELANCE DIRECTOR. AM CARE. ORAL CARE, BED BATH GIVEN. LINEN CHANGED, REMAINING SAME VENT SETTING TOLERATED WELL. SAT 99%. NO ACUTE DISTRESS NOTED. DIRECTOR SOCIAL SHOWING NSR, IV LT UPPER ARM PICC LINE IVF D5NS 30ML/H. LEVOPHED 1MCG/MIN.. FLEXA SEAL INTACT. HOB ELEVATED, TURN AND REPOSITION Q2H. AFEBRILE. PT IS NPO. GT CLAMPED.WILL CONTINUE TO MONITOR VITALS.
--- NOTE | 2018-04-12 04:00 | NUR ---
LIFE SCIENCES DIRECTOR. BP 130/70. LEVOPHED HELD,
[2018-04-12 04:52] LABS: BASOPHILS % (AUTO) 0.1 % (0.0-2.0); HEMATOCRIT 24 % (39-51); HEMOGLOBIN 8.1 g/dL (13.5-17.5); LYMPHOCYTES # (AUTO) 0.3 /CMM (0.8-4.8); MEAN CORPUSCULAR HGB CONC 34 g/dl (31.0-36.0); MEAN CORPUSCULAR VOLUME 105 fL (80-96); MONOCYTES # (AUTO) 0.1 /CMM (0.1-1.30); MONOCYTES % (AUTO) 2.3 % (2.0-12.0); NEUTROPHILS % (AUTO) 93.6 % (43.0-81.0); RDW COEFFICIENT OF VARIATION 20.6 (11.5-15.0); RED BLOOD CELL COUNT(AUTO) 2.27 MIL/uL (4.5-6.0); WHITE BLOOD COUNT (AUTO) 6.4 K/uL (4.3-11.0)
[2018-04-12 04:58] LABS: PLATELET COUNT (AUTO) 24 /CMM (150-450)
[2018-04-12] MEDS: INSULIN REGULAR, HUMAN 100 UNIT/ML 3 ML VIAL SQ PRN ×4 (05:05→23:19)
[2018-04-12] MEDS: HYDROCORTISONE SOD SUCCINATE 100 MG/2 ML VIAL IV SCH ×3 (05:05→20:43)
[2018-04-12] MEDS: BLOOD SUGAR DIAGNOSTIC 1 EACH STRIP IN SCH ×4 (05:06→23:19)
[2018-04-12 05:08] LABS: CALCIUM, SERUM 7.9 mg/dL (8.5-10.1); CREATININE 2.8 mg/dL (0.6-1.3); MAGNESIUM 2.4 mg/dL (1.8-2.4); PHOSPHORUS 5.3 mg/dL (2.5-4.9); POTASSIUM 3.5 mmol/L (3.5-5.1)
[2018-04-12 05:39] LABS: LYMPHOCYTES % (MANUAL) 6 % (16-48); MONOCYTES % (MANUAL) 1 % (0-11.0); NEUTROPHILS % (MANUAL) 93 (42-76)
--- NOTE | 2018-04-12 05:51 | NUR ---
RECEIVED PT TRACH PORTEX 8 ON MECH VENT. PT TOLERATING VENT SETTINGS. SUCTIONED SMALL AMOUNT OF THIN WHITE SECRETIONS. VENT ALARMS SET AND AUDIBLE. AMBU BAG AT BEDSIDE. TRACH SECURED. VENT PLUGGED INTO RED OUTLET. WILL CONTINUE TO MONITOR.
--- NOTE | 2018-04-12 06:17 | NUR ---
TINSMITH APPRENTICE. PLATELET 24. I UNIT PLATELETS ORDERED.
[2018-04-12] MEDS: ACETYLCYSTEINE 20% SOLN 800 MG/4 ML VIAL NEB SCH ×3 (07:31→22:59)
--- NOTE | 2018-04-12 07:52 | NUR ---
ICU/RN INITIAL NOTES, AM RECEIVED REPORT FROM NIGHT NURSE. PT RESTING IN BED COMFORTABLY. PT ALERT, AWAKE, OPENS EYES. PT ON VENT VIA TRACH, ON VENT SETTINGS ORDERED BY MD, NO ACUTE DISTRESS NOTED. PT SINUS ELDER ON TELE. FLEXI SEAL IN PLACE, PT ANURIC. GTUBE FEEDING IS ON HOLD, LEAKING, AWAITING FOR PT TO STABILIZE TO REPLACE GTUBE. IV FLUIDS INFUSING ORDERED. PICC LINE AND PIV PATENT AND INTACT, NO S/S OF INFECTION OR INFILTRATION NOTED. PLATELETS PENDING, WILL TRANSFUSE WHEN READY. ALL NEEDS WILL BE MET, SAFETY MEASURES TAKEN, BED IN LOW POSITION, SIDE RAILS UP, CALL LIGHT WITHIN REACH. WILL CONTINUE CARE
[2018-04-12] MEDS: CARVEDILOL 12.5 MG TABLET GT SCH ×2 (09:00→20:43)
[2018-04-12] MEDS: GABAPENTIN 100 MG CAPSULE GT SCH ×2 (09:45→20:43)
[2018-04-12] MEDS: FOLIC ACID 1 MG TABLET GT SCH (09:45)
[2018-04-12] MEDS: SUCRALFATE 1 G/10 ML UDC GT SCH ×4 (09:45→21:03)
[2018-04-12] MEDS: ZINC SULFATE 220 MG CAPSULE GT SCH (09:45)
[2018-04-12] MEDS: LACTOBACILLUS RHAMNOSUS GG 1 EACH CAP.SPRINK GT SCH ×2 (09:45→17:05)
[2018-04-12] MEDS: VIT B CMPLX 3/FA/VIT C/BIOTIN 1 TAB TABLET GT SCH (09:45)
[2018-04-12] MEDS: PROSOURCE / PROSTAT (PYXIS) 30 ML UDC GT SCH ×3 (09:46→17:11)
[2018-04-12] MEDS: PANTOPRAZOLE 40 MG VIAL IV SCH ×2 (09:46→17:05)
[2018-04-12] MEDS: TRAMADOL HCL 50 MG TABLET PO SCH ×2 (09:46→20:43)
[2018-04-12] MEDS: HYDROGEL DRESSING 90 GM TUBE TP SCH ×2 (09:50→20:46)
[2018-04-12] MEDS: BACITRACIN/POLYMYXIN B 15 GM TUBE TP SCH (09:51)
[2018-04-12] MEDS: POLYVINYL ALCOHOL 15 ML BOTTLE EACHEYE SCH ×2 (09:51→20:45)
[2018-04-12] MEDS: LEVETIRACETAM (500MG) 500 MG in IV NS 0.9% 100 ML IV SCH ×2 (09:53→20:43)
[2018-04-12] MEDS: Z GUARD REMEDY 2 OZ OINT TP SCH (09:54)
--- NOTE | 2018-04-12 12:27 | NUR ---
ICU/RN: REPORT ENDORSED TO POOJA FOR CONTINUATION OF CARE. ALL NEEDS ATTENDED. WILL CONTINUE CARE.
--- NOTE | 2018-04-12 12:30 | NUR ---
RN NOTES REPORT RECEIVED FROM JUAN LUIS RN FOR KRYS, PT STABLE , CONTINUE TO MONITOR .
--- NOTE | 2018-04-12 13:49 | NUR ---
RN NOTES PT RECEIVED ONE UNIT OF PLATELET , TOLERATED WELL , NO DISTRESS NOTED. CONTINUE TO MONITOR
--- NOTE | 2018-04-12 17:56 | NUR ---
RT SHIFT REPORT, PT. 52 Y OLD MALE REMAIN TRACHED PORTEX # 8 WITH NOTED SETTINGS, VENT ALARMS ARE SET AND AUDIBLE WITH AMBU BAG AT THE BEDSIDE. CHEESE BLENDER CUFF PRESSURE NOTED. VENT IS PLUGGED INTO RED OUTLET. B/S BILATERALLY RALES EQUAL CHEST RISE NOTED. HME CHANGES, TX'S GIVEN INLINE NO A/R NOTED SX MODERATE THICK WHITE SECRETIONS. NO RESPIRATORY DISTRESS NOTED T/O SHIFT, WILL CONTINUE TO MONITOR. REPORT WILL BE GIVEN TO PM SHIFT. PT REMAIN STABLE. Addendum: 04/12/18 at 1758 by IRIS SLAUGHTER RT Amended: Links added.
--- NOTE | 2018-04-12 18:38 | NUR ---
RN NOTES PT AT REST , TRACH SUCTIONING DONE, L UPPER ARM PICC LINE SITE CDI, SR UP x2, CALL LIGHT WITHIN EASY REACH, WILL ENDOSE TO CHAR FILTER TANK TENDER NURSE FOR KRYS
--- NOTE | 2018-04-12 19:19 | NUR ---
PT RECEIVED TRACH PORTEX 8 ON VENT WITH NOTED SETTINGS . PT TOLERATING VENT SETTINGS. SUCTIONED SMALL AMOUNT OF WHITE THICK SECRETIONS. NO RESP DISTRESS NOTED. VENT ALARMS SET AND AUDIBLE. AMBU BAG AT BEDSIDE. VENT PLUGGED INTO RED OUTLET. WILL CONTINUE TO MONITOR.
--- NOTE | 2018-04-12 20:23 | NUR ---
received pt from day shift, alert, follows simple commands, SB, on the vent, lungs partially congested, some non pitting edema, GT clamped, leaking around the stoma, abdomen distended, rectal tube in diarrhea, anuric HD pt, multiple wounds, v/s stable, no pain, pt turned and repositioned.
[2018-04-12] MEDS: PYRIDOXINE HCL 50 MG TABLET GT SCH (21:06)
[2018-04-13] VITALS (65 sets, daily range): BP systolic 70–150; BP diastolic 41–66
--- NOTE | 2018-04-13 00:20 | NUR ---
pt is resting in the bed, v/s stable, no pain, pt turned and repositioned q2hrs.
[2018-04-13] MEDS: MIDODRINE HCL 2.5 MG TABLET GT SCH ×3 (00:53→17:18)
--- NOTE | 2018-04-13 00:55 | NUR ---
midodrine not given, SBP 141.
[2018-04-13 04:36] LABS: BASOPHILS % (AUTO) 0.1 % (0.0-2.0); EOSINOPHILS % (AUTO) 0.3 % (0.0-6.0); HEMATOCRIT 24 % (39-51); HEMOGLOBIN 8.2 g/dL (13.5-17.5); LYMPHOCYTES # (AUTO) 0.1 /CMM (0.8-4.8); LYMPHOCYTES % (AUTO) 4.1 % (20.0-44.0); MEAN CORPUSCULAR HGB CONC 34 g/dl (31.0-36.0); MEAN CORPUSCULAR VOLUME 104 fL (80-96); MONOCYTES # (AUTO) 0.1 /CMM (0.1-1.30); MONOCYTES % (AUTO) 1.9 % (2.0-12.0); NEUTROPHILS # (AUTO) 2.9 /CMM (1.8-8.9); NEUTROPHILS % (AUTO) 93.6 % (43.0-81.0); RDW COEFFICIENT OF VARIATION 20.1 (11.5-15.0); RED BLOOD CELL COUNT(AUTO) 2.31 MIL/uL (4.5-6.0); WHITE BLOOD COUNT (AUTO) 3.2 K/uL (4.3-11.0)
--- NOTE | 2018-04-13 05:31 | NUR ---
pt is resting in the bed, no acute distress overnight, v/s stable, no pain, pt cleaned, changed and repositioned q2hrs.
[2018-04-13] MEDS: HYDROCORTISONE SOD SUCCINATE 100 MG/2 ML VIAL IV SCH ×3 (05:34→20:41)
[2018-04-13 05:58] LABS: CALCIUM, SERUM 7.6 mg/dL (8.5-10.1); CREATININE 3.3 mg/dL (0.6-1.3); GENTAMICIN,RANDOM 3.7 ug/ml (4.0-8.0); MAGNESIUM 2.6 mg/dL (1.8-2.4); PHOSPHORUS 6.8 mg/dL (2.5-4.9); POTASSIUM 3.6 mmol/L (3.5-5.1)
[2018-04-13 06:16] LABS: PLATELET COUNT (AUTO) 31 /CMM (150-450)
[2018-04-13] MEDS: BLOOD SUGAR DIAGNOSTIC 1 EACH STRIP IN SCH ×3 (06:18→18:16)
[2018-04-13] MEDS: INSULIN REGULAR, HUMAN 100 UNIT/ML 3 ML VIAL SQ PRN ×3 (06:18→18:19)
--- NOTE | 2018-04-13 07:30 | NUR ---
INITIAL NOTES: RECEIVED PATIENT IN BED, AWAKE ON hd THROUGH [facility] CATH IN [facility]. PATIENT AWAKE TO VERBAL AND TACTILE STIMULI, PT IS A/0 X1, NONVERBAL, BUT ABLE TO NOD YES/NO AND FOLLOW SIMPLE COMMANDS. PT SB AT 52 ON CHEMICAL OPERATIONS AND TRAINING.TRACH IS MIDLINE AND INTACT, ON MECHANICAL VENTILATOR AT PRESCRIBED SETTINGS, TOLERATING WELL, FREE FROM ANY S/S OF RESPIRATORY DISTRESS. G-TUBE PATENT AND INTACT, NOTED TO BE LEAKING UPON SHIFT REPORT DRESSINGS CLEAN AND DRY CURRENTLY. GASTRIC RESIDUAL = 10ML AT THIS TIME CLEAR OUTPUT. RIGHT AC AND RIGHT FOREARM IVs PATEBNT AND INTACT, FLUSHED WITH NS, FREE FROM ANY S/S OF INFILTRATION OR PHLEBITIS. LEVOPHED CURRENTLY OFF WILL MONITOR AND TITRATE IF NEEDED. PICC LINE PLACEMENT IN CRISTINE. FLEXISEAL PATENT AND INTACT, NOTED WITH LIQUID BROWN STOOL TO DRAINAGE BAG. WILL CONTINUE TO CLOSELY MONITOR. BED IN LOWEST AND LOCKED POSITION, CALL LIGHT WITHIN EASY REACH, HOB KEPT ELEVATED FOR ASPIRATION PRECAUTIONS
[2018-04-13] MEDS: ACETYLCYSTEINE 20% SOLN 800 MG/4 ML VIAL NEB SCH ×3 (07:48→23:39)
[2018-04-13] MEDS: IV D5/ 0.9% NACL 1,000 ML IV PRN (07:48)
[2018-04-13] MEDS: SUCRALFATE 1 G/10 ML UDC GT SCH ×4 (07:51→21:25)
[2018-04-13 08:13] LABS: LYMPHOCYTES % (MANUAL) 5 % (16-48); MONOCYTES % (MANUAL) 1 % (0-11.0); NEUTROPHILS % (MANUAL) 94 (42-76)
[2018-04-13] MEDS: VIT B CMPLX 3/FA/VIT C/BIOTIN 1 TAB TABLET GT SCH (08:34)
[2018-04-13] MEDS: PANTOPRAZOLE 40 MG VIAL IV SCH ×2 (08:35→17:17)
[2018-04-13] MEDS: GABAPENTIN 100 MG CAPSULE GT SCH ×2 (08:35→20:41)
[2018-04-13] MEDS: LACTOBACILLUS RHAMNOSUS GG 1 EACH CAP.SPRINK GT SCH ×2 (08:35→17:17)
[2018-04-13] MEDS: TRAMADOL HCL 50 MG TABLET PO SCH ×2 (08:35→21:25)
[2018-04-13] MEDS: FOLIC ACID 1 MG TABLET GT SCH (08:35)
[2018-04-13] MEDS: CARVEDILOL 12.5 MG TABLET GT SCH ×2 (08:36→21:15)
[2018-04-13] MEDS: BACITRACIN/POLYMYXIN B 15 GM TUBE TP SCH (08:37)
[2018-04-13] MEDS: HYDROGEL DRESSING 90 GM TUBE TP SCH ×2 (08:39→21:49)
[2018-04-13] MEDS: Z GUARD REMEDY 2 OZ OINT TP SCH (08:39)
[2018-04-13] MEDS: POLYVINYL ALCOHOL 15 ML BOTTLE EACHEYE SCH ×2 (08:40→20:43)
[2018-04-13] MEDS: PROSOURCE / PROSTAT (PYXIS) 30 ML UDC GT SCH ×2 (08:41→13:22)
[2018-04-13] MEDS: ZINC SULFATE 220 MG CAPSULE GT SCH (08:42)
[2018-04-13] MEDS: LEVETIRACETAM (500MG) 500 MG in IV NS 0.9% 100 ML IV SCH ×2 (08:44→20:43)
[2018-04-13] MEDS ORDERED: EPOETIN ALFA (10,000 UNIT) 10,000 UNIT/ML VIAL SQ ONE (09:30)
[2018-04-13] MEDS: NOREPINEPHRINE 8 MG in IV D5W 500 ML IV PRN (12:36)
[2018-04-13] MEDS ORDERED: DIATR MEGLU/DIATRIZOATE SODIUM 30 ML BOTTLE (GASTROGRAPHIN) ONE (17:30)
--- NOTE | 2018-04-13 17:35 | NUR ---
RT SHIFT REPORT, PT. 52 Y OLD MALE REMAIN AWAKE TRACHED PORTEX # 8 WITH NOTED SETTINGS, VENT ALARMS ARE SET AND AUDIBLE WITH AMBU BAG AT THE BEDSIDE. TOOL STRAIGHTENER CUFF PRESSURE NOTED. HME CHANGES, VENT IS PLUGGED INTO RED OUTLET. B/S BILATERALLY RALES EQUAL CHEST RISE NOTED. TX'S GIVEN INLINE NO A/R NOTED SX MODERATE WHITE SECRETIONS. NO RESPIRATORY DISTRESS NOTED T/O SHIFT, NO CHANGES AMBU BAG REMAIN AT THE BEDSIDE. PT. REMAIN STABLE WILL CONTINUE TO MONITOR. REPORT WILL BE GIVEN TO PM SHIFT. Addendum: 04/13/18 at 1737 by IRIS SLAUGHTER RT Amended: Links added.
[2018-04-13] MEDS: GENTAMICIN 80 MG in IV NS 0.9% 50 ML IV PRN (17:47)
--- NOTE | 2018-04-13 19:19 | NUR ---
CLOSING NOTE: PT STABLE ALL SHIFT ON VENT WITH TRACH. PT STARTED ON LEVOPHED AT 1 MCG. KUB DONE WITH CONTRAST NO RADIOLOGY REPORT COMPLETED. PT HAS FLEXISEAL 400 ML BROWN OUT PUT. AT CHANGE OF SHIFT AND AEOUND 1630 PT HAD G-TUBE LEAKAGE ODORIFEROUS. ENDORSE CARE TO STONE DERRICKMAN AND RIGGER RN
--- NOTE | 2018-04-13 20:00 | NUR ---
ICU/RN RECEIVED PT AWAKE ALERT OX3.ON VENT PER TRACH 40%,SATURATION OF 100%.SUCTIONED BY RT OF SCANT AMT SECRETIONS.ORAL CARE DONE,CLEAR SECRETIONS FROM AROUND TRACH SITE,DRESSING CHANGED.NOTIFIED RE:RESULT OF KUB.
[2018-04-13] MEDS ORDERED: NOREPINEPHRINE 8 MG in IV D5W 500 ML IV PRN (20:30)
--- NOTE | 2018-04-13 20:41 | NUR ---
RECEIVED PT TRACH PTX 8 ON VENT AC 14, 500, 30%. NO RESP DISTRESS NOTED. PT TOLERATING VENT SETTINGS. SX'D FOR SML AMT OF THICK DEAN SECRETIONS. VENT ALARMS SET AND AUDIBLE. AMBU BAG AT BEDSIDE. WILL CONTINUE TO MONITOR. Addendum: 04/13/18 at 2042 by ISAAC HARRINGTON RT Amended: Links added.
--- NOTE | 2018-04-13 21:11 | NUR ---
ICU/RN [facility] G[employer] AFFA[employer] MANAGER RETURNED CALL.ORDERS RECEIVED AND TOLD X-RAY IT IS TO BE DONE TONIGHT.
--- NOTE | 2018-04-13 21:30 | NUR ---
ICU/RN LEVOPHED DRIP DC'D,AEP==[id number]
[2018-04-13] MEDS ORDERED: DIATR MEGLU/DIATRIZOATE SODIUM 120 ML BOTTLE (GASTROGRAPHIN) ONE (22:52)
[2018-04-14] VITALS (38 sets, daily range): BP systolic 129–171; BP diastolic 57–70
[2018-04-14] MEDS: BLOOD SUGAR DIAGNOSTIC 1 EACH STRIP IN SCH ×4 (01:30→18:44)
[2018-04-14] MEDS: INSULIN REGULAR, HUMAN 100 UNIT/ML 3 ML VIAL SQ PRN ×4 (01:30→18:46)
[2018-04-14] MEDS: MIDODRINE HCL 2.5 MG TABLET GT SCH ×3 (01:43→17:11)
--- NOTE | 2018-04-14 02:00 | NUR ---
ICU/RN DARK YELLOW DRAINAGE LEAKING AROUND GT SITE.DRESSING CHANGED,BED BATH GIVEN.
[2018-04-14] MEDS: HYDROCORTISONE SOD SUCCINATE 100 MG/2 ML VIAL IV SCH ×3 (04:57→21:20)
--- NOTE | 2018-04-14 05:32 | NUR ---
ICU/RN GT CONTINUES TO DRAIN YELLOW-ORANGE DRAINAGE,DRESSING CHANGED.VITAL SIGNS STABLE,REMAINS OFF LEVOPHED.
[2018-04-14] MEDS: ACETYLCYSTEINE 20% SOLN 800 MG/4 ML VIAL NEB SCH ×3 (07:35→22:45)
--- NOTE | 2018-04-14 07:56 | NUR ---
RT PT RECEIVED WITH A PORTEX 8 TRACH, ON THE VENT WITH NOTED SETTINGS. PT IS AWAKE AND TRACKS WITH EYES. VENT ALARMS ARE SET AND AUDIBLE WITH BVM BY BEDSIDE. FUR MIXER CUFF PRESSURE NOTED. VENT IS PLUGGED INTO RED OUTLET. PT SX'D SMALL WHITE THIN SECRETIONS. NO RESPIRATORY DISTRESS NOTED AT THIS TIME, WILL CONTINUE TO MONITOR. Addendum: 04/14/18 at 0758 by BIJU PAPPAS RT Amended: Links added.
[2018-04-14] MEDS: CARVEDILOL 12.5 MG TABLET GT SCH (09:00)
[2018-04-14 09:08] LABS: BASOPHILS % (AUTO) 0.2 % (0.0-2.0); HEMATOCRIT 24 % (39-51); HEMOGLOBIN 8.3 g/dL (13.5-17.5); LYMPHOCYTES # (AUTO) 0.1 /CMM (0.8-4.8); LYMPHOCYTES % (AUTO) 3.1 % (20.0-44.0); MEAN CORPUSCULAR HGB CONC 34 g/dl (31.0-36.0); MEAN CORPUSCULAR VOLUME 104 fL (80-96); MONOCYTES % (AUTO) 0.1 % (2.0-12.0); NEUTROPHILS # (AUTO) 3.4 /CMM (1.8-8.9); NEUTROPHILS % (AUTO) 96.6 % (43.0-81.0); RDW COEFFICIENT OF VARIATION 20.8 (11.5-15.0); RED BLOOD CELL COUNT(AUTO) 2.32 MIL/uL (4.5-6.0); WHITE BLOOD COUNT (AUTO) 3.5 K/uL (4.3-11.0)
[2018-04-14 09:13] LABS: CALCIUM, SERUM 7.8 mg/dL (8.5-10.1); POTASSIUM 3.4 mmol/L (3.5-5.1)
[2018-04-14 09:18] LABS: PLATELET COUNT (AUTO) 24 /CMM (150-450)
[2018-04-14 09:38] LABS: LYMPHOCYTES % (MANUAL) 3 % (16-48); MONOCYTES % (MANUAL) 1 % (0-11.0); NEUTROPHILS % (MANUAL) 96 (42-76)
[2018-04-14] MEDS: SUCRALFATE 1 G/10 ML UDC GT SCH ×5 (09:40→21:20)
[2018-04-14] MEDS: TRAMADOL HCL 50 MG TABLET PO SCH ×2 (09:40→21:20)
[2018-04-14] MEDS: LACTOBACILLUS RHAMNOSUS GG 1 EACH CAP.SPRINK GT SCH ×2 (09:40→17:10)
[2018-04-14] MEDS: PANTOPRAZOLE 40 MG VIAL IV SCH ×2 (09:40→17:10)
[2018-04-14] MEDS: GABAPENTIN 100 MG CAPSULE GT SCH ×2 (09:41→21:20)
[2018-04-14] MEDS: LEVETIRACETAM (500MG) 500 MG in IV NS 0.9% 100 ML IV SCH ×2 (09:42→21:20)
[2018-04-14] MEDS: BACITRACIN/POLYMYXIN B 15 GM TUBE TP SCH (09:44)
[2018-04-14] MEDS: POLYVINYL ALCOHOL 15 ML BOTTLE EACHEYE SCH ×2 (09:45→21:21)
[2018-04-14] MEDS: HYDROGEL DRESSING 90 GM TUBE TP SCH ×2 (09:52→21:21)
[2018-04-14] MEDS: Z GUARD REMEDY 2 OZ OINT TP SCH (09:54)
--- NOTE | 2018-04-14 13:00 | NUR ---
Pt progress and results reported to Dr. Vazquez. GT leakage still noted. Will transfuse one unit of platelets.
--- NOTE | 2018-04-14 15:00 | NUR ---
platelets transfusion completed. VSS. No reaction noted.
[2018-04-14] MEDS: IV D5/ 0.9% NACL 1,000 ML IV PRN (18:51)
--- NOTE | 2018-04-14 19:27 | NUR ---
PT RECEIVED TRACH WITH PORTEX 8 ON THE VENT WITH NOTED SETTINGS. PT IS AWAKE AND ALERT. VENT ALARMS ARE SET AND AUDIBLE, AMBU BAG @ BEDSIDE. HEALTH EDUCATION AIDE CUFF PRESSURE NOTED. VENT IS PLUGGED INTO RED OUTLET. PT SX'D SMALL THICK YELLOW SECRETIONS. NO RESPIRATORY DISTRESS NOTED AT THIS TIME, WILL CONTINUE TO MONITOR.
--- NOTE | 2018-04-14 19:30 | NUR ---
RESORT HOST INITIAL NOTE RECEIVED PATIENT AWAKE, ALERT, NON-VERBAL, VENT DEPENDENT. ABLE TO FOLLOW SIMPLE COMMANDS. NO S/S OF PAIN OR DISCOMFORT. NO RESPIRATORY DISTRESS NOTED, WITH VENT SETTINGS AC 14, VT 500, FIO2 30%, PEEP 0. ON TELE MONITOR SB. WITH JOANN PICC LINE PATENT AND INTACT WITH D5NS AT 30ML/HR. ON TELE MONITOR SB 57. SKIN WARM AND DRY TO TOUCH. WITH GT PATENT AND INTACT, IN PLACE. PER REPORT PATIENT NPO, BUT OK TO USE GT FOR MEDS. WITH FLEXISEAL IN PLACE, DRAINING. HOB ELEVATED. TURNED AND REPOSITIONED. SIDE RAILS UP AND LOCKED. BED KEPT AT LOWEST POSITION. WILL CONTINUE TO MONITOR.
--- NOTE | 2018-04-14 22:30 | NUR ---
ASSOCIATE PROFESSOR OF CRIMINAL JUSTICE NOTE JUAN M DECKER AT BEDSIDE, INFORMED REGARDING PATIENT SBP >160. SHE [address] PLACE ORDERS IN.
--- NOTE | 2018-04-14 22:48 | NUR ---
NAVY SEAL NOTE CONTINUITY OF CARE ENDORSED TO ROZ
[2018-04-14] MEDS ORDERED: hydrALAZINE HCL IV 20 MG VIAL IV PRN (23:00)
--- NOTE | 2018-04-14 23:12 | NUR ---
CAT AND DOG BATHER NOTE PATIENT TRANSFERRED TO [facility] 117-2, ALL BELONGINGS WITH PATIENT.
[2018-04-15] VITALS (8 sets, daily range): BP systolic 106–163; BP diastolic 53–70
[2018-04-15] MEDS: BLOOD SUGAR DIAGNOSTIC 1 EACH STRIP IN SCH ×4 (00:55→18:03)
[2018-04-15] MEDS: INSULIN REGULAR, HUMAN 100 UNIT/ML 3 ML VIAL SQ PRN ×4 (00:56→18:05)
[2018-04-15] MEDS: MIDODRINE HCL 2.5 MG TABLET GT SCH ×3 (01:48→17:17)
[2018-04-15] MEDS: HYDROCORTISONE SOD SUCCINATE 100 MG/2 ML VIAL IV SCH ×3 (05:29→21:51)
[2018-04-15 06:15] LABS: BASOPHILS % (AUTO) 0.3 % (0.0-2.0); EOSINOPHILS % (AUTO) 0.1 % (0.0-6.0); HEMATOCRIT 27 % (39-51); HEMOGLOBIN 9.3 g/dL (13.5-17.5); LYMPHOCYTES # (AUTO) 0.2 /CMM (0.8-4.8); MEAN CORPUSCULAR HGB CONC 34 g/dl (31.0-36.0); MEAN CORPUSCULAR VOLUME 105 fL (80-96); MONOCYTES # (AUTO) 0.1 /CMM (0.1-1.30); MONOCYTES % (AUTO) 1.7 % (2.0-12.0); NEUTROPHILS # (AUTO) 2.9 /CMM (1.8-8.9); NEUTROPHILS % (AUTO) 92.9 % (43.0-81.0); RDW COEFFICIENT OF VARIATION 20.3 (11.5-15.0); RED BLOOD CELL COUNT(AUTO) 2.58 MIL/uL (4.5-6.0); WHITE BLOOD COUNT (AUTO) 3.1 K/uL (4.3-11.0)
[2018-04-15 06:23] LABS: PLATELET COUNT (AUTO) 38 /CMM (150-450)
[2018-04-15 06:28] LABS: CREATININE 3.5 mg/dL (0.6-1.3); MAGNESIUM 2.5 mg/dL (1.8-2.4); PHOSPHORUS 7.1 mg/dL (2.5-4.9); POTASSIUM 3.5 mmol/L (3.5-5.1)
[2018-04-15 07:20] LABS: BAND % (MANUAL) 2 % (0.0-5.0); LYMPHOCYTES % (MANUAL) 5 % (16-48); MONOCYTES % (MANUAL) 2 % (0-11.0); NEUTROPHILS % (MANUAL) 91 (42-76)
--- NOTE | 2018-04-15 07:45 | NUR ---
RN NOTE RECEIVED PATIENT AWAKE, ALERT, NON-VERBAL, HE IS ABLE TO BLINKS EYES WHEN ASKED QUESTIONS. VENT/TRACH DEPENDENT WITH APPROPRIATE SETTINGS. NO S/SX OF PAIN OR DISCOMFORT AT THIS TIME. ON COMMERCIAL ACCOUNT MANAGER OF SINUS ELDER HR IF 54. LEFT UA PICC LINE PATENT AND INTACT. PATIENT WILL BE DIALYZE TODAY. SKIN WARM AND DRY TO TOUCH. GT INTACT AND PATENT, PER REPORT PATIENT IS NPO EXCEPT FOR MEDS. FLEXISEAL IN PLACE, DRAINING ADEQUATELY. HOB ELEVATED FOR COMFORT. TURNED AND REPOSITIONED. BED LOW AND LOCKED POSITION. PLACED CALL LIGHT WITHIN REACH. WILL CONTINUE TO MONITOR.
[2018-04-15] MEDS: ACETYLCYSTEINE 20% SOLN 800 MG/4 ML VIAL NEB SCH ×3 (07:47→23:50)
[2018-04-15] MEDS: SUCRALFATE 1 G/10 ML UDC GT SCH ×4 (07:55→21:51)
[2018-04-15] MEDS ORDERED: EPOETIN ALFA (10,000 UNIT) 10,000 UNIT/ML VIAL SQ ONE (08:00)
[2018-04-15] MEDS: HYDROGEL DRESSING 90 GM TUBE TP SCH ×2 (08:10→21:52)
[2018-04-15] MEDS: POLYVINYL ALCOHOL 15 ML BOTTLE EACHEYE SCH ×2 (08:10→21:52)
[2018-04-15] MEDS: TRAMADOL HCL 50 MG TABLET PO SCH ×2 (08:12→21:51)
[2018-04-15] MEDS: PANTOPRAZOLE 40 MG VIAL IV SCH ×2 (08:12→17:08)
[2018-04-15] MEDS: LACTOBACILLUS RHAMNOSUS GG 1 EACH CAP.SPRINK GT SCH ×2 (08:12→17:08)
[2018-04-15] MEDS: GABAPENTIN 100 MG CAPSULE GT SCH ×2 (08:12→21:51)
[2018-04-15] MEDS: Z GUARD REMEDY 2 OZ OINT TP SCH (08:13)
[2018-04-15] MEDS: LEVETIRACETAM (500MG) 500 MG in IV NS 0.9% 100 ML IV SCH ×2 (09:20→21:52)
[2018-04-15] MEDS: BACITRACIN/POLYMYXIN B 15 GM TUBE TP SCH (09:21)
--- NOTE | 2018-04-15 17:34 | NUR ---
Pt tolerated current vent settings well. Pt trach is secure. Vent is plugged into a red outlet, alarms are set and audible, and BVM is at bedside. Addendum: 04/15/18 at 1736 by MARIOLA CASTELLANOS RT Amended: Links added.
[2018-04-15] MEDS ORDERED: FEE PK DOSING 1 MIN EA MC ONE (18:10)
[2018-04-15] MEDS ORDERED: VANCOMYCIN 1 GM in IV D5W 250 ML IV ONE (18:30)
[2018-04-15] MEDS ORDERED: VANCOMYCIN 500 MG in IV D5W 100 ML IV PRN (18:30)
--- NOTE | 2018-04-15 19:26 | NUR ---
RN NOTE PATIENT WAS DIALYZED TODAY, CLEANING ONLY. PATIENT REMAINED STABLE THROUGHOUT SHIFT. NO ACUTE CHANGES OR DISTRESS NOTED. WILL ENDORSE TO NEXT SHIFT TO CONTINUE CONTINUITY OF CARE.
[2018-04-16] VITALS: BP_SYST 108; BP_SYST 135; BP_DIAS 54; BP_DIAS 66
[2018-04-16] MEDS: BLOOD SUGAR DIAGNOSTIC 1 EACH STRIP IN SCH ×4 (00:13→17:08)
[2018-04-16] MEDS: INSULIN REGULAR, HUMAN 100 UNIT/ML 3 ML VIAL SQ PRN ×4 (00:20→17:07)
[2018-04-16] MEDS: MIDODRINE HCL 2.5 MG TABLET GT SCH ×3 (01:29→17:08)
[2018-04-16 04:00] VITALS: BP 153/70
[2018-04-16] MEDS: HYDROCORTISONE SOD SUCCINATE 100 MG/2 ML VIAL IV SCH (04:54)
[2018-04-16] MEDS: IV D5/ 0.9% NACL 1,000 ML IV PRN (05:22)
[2018-04-16 06:33] LABS: CALCIUM, SERUM 7.4 mg/dL (8.5-10.1); CREATININE 2.9 mg/dL (0.6-1.3); POTASSIUM 3.1 mmol/L (3.5-5.1)
--- NOTE | 2018-04-16 07:30 | NUR ---
MEAT TEAM LEAD OPENING NOTE RECEIVED PATIENT IN BED AWAKE, ALERT, NON-VERBAL, HE IS ABLE TO MOVE HIS HEAD WHEN ASKED QUESTIONS. VENT/TRACH DEPENDENT NO SOB NO DISTRESS NOTED. NO S/SX OF PAIN OR DISCOMFORT AT THIS TIME. ON MANAGER PROFESSIONAL DEVELOPMENT SINUS ELDER HR 59. LEFT UA PICC LINE PATENT AND INTACT. GT INTACT AND PATENT, PER REPORT PATIENT IS NPO EXCEPT FOR MEDS. FLEXISEAL IN PLACE, DRAINING ADEQUATELY. HOB ELEVATED FOR COMFORT. BED LOW AND LOCKED POSITION. PLACED CALL LIGHT WITHIN REACH. WILL CONTINUE TO MONITOR.
[2018-04-16] MEDS: ACETYLCYSTEINE 20% SOLN 800 MG/4 ML VIAL NEB SCH ×2 (07:47→15:40)
[2018-04-16 08:00] VITALS: BP 161/66
[2018-04-16] MEDS: LACTOBACILLUS RHAMNOSUS GG 1 EACH CAP.SPRINK GT SCH ×2 (08:33→16:36)
[2018-04-16] MEDS: PANTOPRAZOLE 40 MG VIAL IV SCH ×2 (08:33→16:36)
[2018-04-16] MEDS: GABAPENTIN 100 MG CAPSULE GT SCH (08:33)
[2018-04-16] MEDS: SUCRALFATE 1 G/10 ML UDC GT SCH ×3 (08:33→16:36)
[2018-04-16] MEDS: TRAMADOL HCL 50 MG TABLET PO SCH (08:34)
[2018-04-16] MEDS: LEVETIRACETAM (500MG) 500 MG in IV NS 0.9% 100 ML IV SCH (08:34)
[2018-04-16] MEDS: POLYVINYL ALCOHOL 15 ML BOTTLE EACHEYE SCH (08:35)
[2018-04-16] MEDS: HYDROGEL DRESSING 90 GM TUBE TP SCH (08:36)
[2018-04-16] MEDS: Z GUARD REMEDY 2 OZ OINT TP SCH (12:20)
[2018-04-16] MEDS: BACITRACIN/POLYMYXIN B 15 GM TUBE TP SCH (12:20)
--- NOTE | 2018-04-16 13:45 | NUR ---
ECONOMETRICIAN NOTE SEEN BY .MADE AWARE ABOUT THE ABNORMAL LABS AND LOW POTASSIUM.GOT AN ORDER FOR DISCHARGE.REPORT GIVEN TO MARY AYALA IN [facility].NOTIFIED THAT ATTACHED MEDICATION TO BE CONTINUED WITH STOP DATE FOR ANTIBIOTICS. MADE AWARE THAT PATIENT HAS PICC LINE ,G TUBE AND FLEXI SEAL.ALL QUESTIONS ANSWERED .REQUESTED TO CALL BACK IF ANY QUESTIONS.CONTINUE TO MONITOR.
--- NOTE | 2018-04-16 16:19 | NUR ---
RT NOTE Received pt on current vent settings, tolerated well. Pt trach is secure. Vent is plugged into a red outlet, alarms are set and audible, and BVM is at bedside.
[2018-04-16] MEDS: ACETAMINOPHEN 650 MG/20.3 ML UDC GT PRN (17:01)
[2018-04-16 17:08] VITALS: BP 159/62
--- NOTE | 2018-04-16 17:45 | NUR ---
METAL COATER OPERATOR NOTE PATIENT DISCHARGED TO [facility] IN STABLE CONDITION VIA GURNEY UPHOLSTERY AUTO TRIMMER BY [employer].WITH RT.NO SOB NO DISTRESS NOTED AT THIS TIME.FAMILY MADE AWARE SPOKE TO BERHANE MEEKS.PARAMEDICS TAKEN C SHAPE PILLOW BUT LEFT BLANKET .DAUGHTER WILL UPHOLSTERY AUTO TRIMMER TOMORROW.REPORT GIVEN TO MARY AYALA IN AM SHIFT AND SARA RN IN PM SHIFT AT [facility].MADE AWARE ABOUT DIALYSIS SCHEDULE TOLD THAT PATIENT WILL BE GETTING EXTRA DIALYSIS TOMORROW AND BACK TO HIS SCHEDULE .ALSO NOTIFIED ABOUT GENTAMICIN AND VANCOMYCIN TO BE CONTINUED WITH LAST DOSE GIVEN AND LAST TROUGH LEVEL.REPORT AND DISCHARGE PAPERWORK GIVEN TO [employer] .NOTIFIED PATIENT BLOOD PRESSURE IS IN 150'S.
[2018-04-17] MEDS ORDERED: methylPREDNISolone SOD SUCC 40 MG/ML VIAL IV SCH (09:00)
== END 2018-04-16 17:40 | DRG 981 ==
LOC: ER 17:34 → TELE-TD 22:09 → TELE1 04-02 09:37 → ICU 04-02 22:56 → TELE1 04-14 23:15 → TELE-TD 04-14 23:21 → TELE1 04-15 16:40
PROVIDERS: ADMIT Internal Medicine; ATTEND Internal Medicine
PROC: 5A1955Z Respiratory Ventilation, Greater than 96 Consecutive Hours (ICD-10-PCS; principal; 2018-03-25)
PROC: 0DB68ZX Excision of Stomach, Via Natural or Artificial Opening Endoscopic, Diagnostic (ICD-10-PCS; 2018-03-30)
PROC: 0DB68ZX Excision of Stomach, Via Natural or Artificial Opening Endoscopic, Diagnostic (ICD-10-PCS; 2018-03-30)
PROC: 0W9G3ZX Drainage of Peritoneal Cavity, Percutaneous Approach, Diagnostic (ICD-10-PCS; 2018-03-30)
PROC: 0KBP0ZZ Excision of Left Hip Muscle, Open Approach (ICD-10-PCS; 2018-03-31)
PROC: 0KBN0ZZ Excision of Right Hip Muscle, Open Approach (ICD-10-PCS; 2018-03-31)
PROC: 5A1D70Z Performance of Urinary Filtration, Intermittent, Less than 6 Hours Per Day (ICD-10-PCS; 2018-03-31)
PROC: 5A1D70Z Performance of Urinary Filtration, Intermittent, Less than 6 Hours Per Day (ICD-10-PCS; 2018-04-02)
PROC: 5A1D70Z Performance of Urinary Filtration, Intermittent, Less than 6 Hours Per Day (ICD-10-PCS; 2018-04-03)
PROC: 5A1D70Z Performance of Urinary Filtration, Intermittent, Less than 6 Hours Per Day (ICD-10-PCS; 2018-04-05)
PROC: 5A1D70Z Performance of Urinary Filtration, Intermittent, Less than 6 Hours Per Day (ICD-10-PCS; 2018-04-07)
PROC: 5A1D70Z Performance of Urinary Filtration, Intermittent, Less than 6 Hours Per Day (ICD-10-PCS; 2018-04-09)
PROC: 5A1D70Z Performance of Urinary Filtration, Intermittent, Less than 6 Hours Per Day (ICD-10-PCS; 2018-04-11)
PROC: 5A1D70Z Performance of Urinary Filtration, Intermittent, Less than 6 Hours Per Day (ICD-10-PCS; 2018-04-13)
PROC: 5A1D70Z Performance of Urinary Filtration, Intermittent, Less than 6 Hours Per Day (ICD-10-PCS; 2018-04-15)
PROC: 5A1D70Z Performance of Urinary Filtration, Intermittent, Less than 6 Hours Per Day (ICD-10-PCS; 2018-04-16)
PROC: 5A1D70Z Performance of Urinary Filtration, Intermittent, Less than 6 Hours Per Day (ICD-10-PCS; 2018-04-16)
DX: T80.211A Bloodstream infection due to central venous catheter, initial encounter (principal); L89.154 Pressure ulcer of sacral region, stage 4; L89.323 Pressure ulcer of left buttock, stage 3; A41.9 Sepsis, unspecified organism; K65.2 Spontaneous bacterial peritonitis; N18.6 End stage renal disease; R65.21 Severe sepsis with septic shock; G93.40 Encephalopathy, unspecified; Z99.11 Dependence on respirator [ventilator] status; I12.0 Hypertensive chronic kidney disease with stage 5 chronic kidney disease or end stage renal disease; K94.23 Gastrostomy malfunction; L03.311 Cellulitis of abdominal wall; K94.22 Gastrostomy infection; D61.818 Other pancytopenia; R18.8 Other ascites; J96.11 Chronic respiratory failure with hypoxia; C34.90 Malignant neoplasm of unspecified part of unspecified bronchus or lung; E11.52 Type 2 diabetes mellitus with diabetic peripheral angiopathy with gangrene; K31.6 Fistula of stomach and duodenum; D68.9 Coagulation defect, unspecified; E44.0 Moderate protein-calorie malnutrition; E11.22 Type 2 diabetes mellitus with diabetic chronic kidney disease; Z99.2 Dependence on renal dialysis; K74.60 Unspecified cirrhosis of liver; G40.909 Epilepsy, unspecified, not intractable, without status epilepticus; Y84.9 Medical procedure, unspecified as the cause of abnormal reaction of the patient, or of later complication, without mention of misadventure at the time of the procedure; Y92.129 Unspecified place in nursing home as the place of occurrence of the external cause; Z86.718 Personal history of other venous thrombosis and embolism; Z83.3 Family history of diabetes mellitus; Z79.84 Long term (current) use of oral hypoglycemic drugs; R13.10 Dysphagia, unspecified; K21.9 Gastro-esophageal reflux disease without esophagitis; M85.9 Disorder of bone density and structure, unspecified; D53.9 Nutritional anemia, unspecified; K94.21 Gastrostomy hemorrhage; K29.70 Gastritis, unspecified, without bleeding; B96.89 Other specified bacterial agents as the cause of diseases classified elsewhere; B96.5 Pseudomonas (aeruginosa) (mallei) (pseudomallei) as the cause of diseases classified elsewhere; I25.2 Old myocardial infarction; I95.89 Other hypotension
CPT/HCPCS: 31720; 36415; 36569; 36600; 49083; 71045-TC; 74018; 74250-TC; 76942-TC; 80048-TC; 80053-TC; 80076-TC; 80150; 80170-TC; 80202-TC; 82140-TC; 82533; 82803-TC; 82945-TC; 82962-TC; 83540-TC; 83605-TC; 83690-TC; 83735-TC; 84100-TC; 84484-TC; 85025-TC; 85610-TC; 85730-TC; 86850-TC; 86921-TC; 87040-TC; 87070-TC; 87081-TC; 87186-TC; 88305-TC; 88313-TC; 88342; 89051-TC; 90935-TC; 94002-TC; 94003-TC; 94760-TC; 94762-TC; 99082-TC; A4216; A4606; A6248; A6253; A6402; A6403; C1751; C9113; J0278; J0885; J1580; J1720; J1815; J1953; J2185; J2543; J2597; J2704; J2765; J3370; J3490; J7030; J7040; J7042; J7050; J7060; P9016-BL; P9034-BL; P9047; Q9963; Z7610